=== PATIENT | female | born 1930 | race Caucasian/White ===

== ENCOUNTER → 2016-04-30 | Outpatient (CLI) | payer BC ==
[~2016-04-30] MED LIST: ACET-176 PO; AMLO5TAB4 PO; BISA1SUP4 PR; CEFT1INJ26 IV; CEFT1INJ57 IV; CLOP1TAB15 PO; CMD5 PO; DOCU100C31 PO; ECRCR EXT; EPP3/2 IM; ERGO50002 PO; FLUC100T4 PO; FRRS300 PO; FRS/40 PO; FURO-85 PO; GABA1CAP4 PO; IMDSR60 PO; ISOS30TA35 PO; ISOS60TA25 PO; LSX20 PO; MCRK20 PO; METO25TA3 PO; MGNO400 PO; MOML PO; MULT-506 PO; MULT-513 PO; NF656 TD; NITRSPR6; NTRSLP4 SL; NYSS/ MT; NYSS5 PO; OXCA150T2 PO; OXYC1TAB3 PO; PANT1TAB48 PO; PANT40TA PO; PHYT100T PO; POLY335019 PO; POTA20TA16 PO; POTTAB2 PO; RANO500T PO; RXC5 PO; SALI0.6510 NAE; SODI1000 PO; SODIENE PR; TPRSR50 PO; TRAM-10 PO; ULT/50 PO; ULT50X PO; WARF-286 PO; WARF6TAB5 PO
--- NOTE | 2016-04-30 16:37 | MAMMOGRAPHY REPORT ---
BILATERAL DIGITAL SCREENING MAMMOGRAM WITH CAD: 04/30/2016 CLINICAL HISTORY: Routine screening examination. TECHNIQUE: Bilateral CC and MLO views were obtained. Current study was also evaluated with a Comput er Aided Detection (CAD) system. COMPARISON: Comparison is made to exams dated: 04/27/2014 mammogram, 04/26/2013 mammogram, 03/21/2011 ma mmogram, 04/23/2012 mammogram, 11/21/2011 mammogram, and 03/28/2011 mammogram - [facility]. BREAST COMPOSITION: There are scattered areas of fibroglandular density in both breasts. FINDINGS: There are stable postsurgical changes in the lower inner quadrant of the left breast, with surgical clips remaining in place. There are diffuse bilateral benign rim calcifications and moder ate vascular calcification in the breasts. No suspicious mass, architectural distortion or cluster of new suspicious microcalcifications is seen. IMPRESSION: ACR BI-RADS CATEGORY 1: NEGATIVE There is no mammographic evidence of malignancy. A 1 year screening mammogram is recommended. The p atient will receive written notification of the results. Approximately 10% of breast cancers are not detected with mammography. A negative mammographic repor t should not delay biopsy if a clinically suggestive mass is present. Malena Willard M.D. ay/:04/30/2016 16:12:48 Superintendent Overhead Distribution: Sweetie WOODWARD)([place]), [facility] letter sent: Normal 1/2 BI-RADS Code: ACR BI-RADS Category 1: Negative
== END | disposition home or self-care (01) ==
LOC: C.MAMM 14:48
PROVIDERS: ATTEND Nurse Practitioner
DX: Z12.31 Encounter for screening mammogram for malignant neoplasm of breast (principal)

== ENCOUNTER → 2016-05-02 | Outpatient (CLI) | payer BC ==
[~2016-05-02] MED LIST changes: -CEFT1INJ57 IV; -DOCU100C31 PO
== END | disposition home or self-care (01) ==
LOC: C.LAB 12:21
PROVIDERS: ATTEND Psychiatry & Neurology Neurology
DX: G50.0 Trigeminal neuralgia (principal)

== ENCOUNTER → 2016-06-03 | Outpatient (CLI) | payer BC ==
[~2016-06-03] MED LIST changes: +CEFT1INJ57 IV
[2016-06-03 16:37] LABS: MEAN CELL VOLUME 90.1 fL (80-100); MEAN CORPUSCULAR HEMOGLOBIN 29.9 pg (25-34); MEAN CORPUSCULAR HGB CONC 33.2 g/dl (32-36); MEAN PLATELET VOLUME 10.9 fL (7.4-10.4); PLATELET COUNT 190 K/uL (130-400); RED BLOOD COUNT 4.55 M/uL (4.2-5.4); WHITE BLOOD COUNT 5.44 K/uL (4.8-10.8)
[2016-06-03 16:47] LABS: URINE APPEARANCE CLEAR (CLEAR); URINE BILIRUBIN NEG (NEG); URINE COLOR YELLOW; URINE NITRITE NEG (NEG); URINE SPECIFIC GRAVITY 1.007 (1.000-1.030); UROBILINOGEN NEG (NEG)
[2016-06-03 16:48] LABS: MANUAL MICROSCOPIC REQUIRED? NO; REVIEW REQ? NO
[2016-06-03 16:57] LABS: URINE PROTIEN/CREAT RATIO 0.1 (0-0.2); URINE TOTAL PROTEIN 6.5 mg/dl (0-11.9)
[2016-06-03 16:59] LABS: BLOOD UREA NITROGEN 30 mg/dl (7-18); BUN/CREATININE RATIO 23.2 (10-20); CALCIUM 9.1 mg/dl (8.5-10.1); CARBON DIOXIDE 28 mmol/L (21-32); CHLORIDE 106 mmol/L (98-107); GLUCOSE 93 mg/dl (70-99); SODIUM 141 mmol/L (136-145)
== END | disposition home or self-care (01) ==
LOC: C.LAB1850 15:10
PROVIDERS: ATTEND Internal Medicine Nephrology
DX: I12.9 Hypertensive chronic kidney disease with stage 1 through stage 4 chronic kidney disease, or unspecified chronic kidney disease (principal); E87.1 Hypo-osmolality and hyponatremia; N18.2 Chronic kidney disease, stage 2 (mild); E55.9 Vitamin D deficiency, unspecified

== ENCOUNTER → 2016-12-02 | Outpatient (CLI) | payer BC ==
[~2016-12-02] MED LIST changes: +DOCU100C31 PO; +SNTO30 EXT; +TPRSR25 PO; -WARF6TAB5 PO
[2016-12-02 14:41] LABS: MEAN CELL VOLUME 89.7 fL (80-100); MEAN CORPUSCULAR HEMOGLOBIN 28.2 pg (25-34); MEAN CORPUSCULAR HGB CONC 31.5 g/dl (32-36); MEAN PLATELET VOLUME 10.1 fL (7.4-10.4); PLATELET COUNT 186 K/uL (130-400); RED BLOOD COUNT 4.57 M/uL (4.2-5.4); WHITE BLOOD COUNT 4.89 K/uL (4.8-10.8)
[2016-12-02 15:00] LABS: ALT/SGPT 24 U/L (12-78); BLOOD UREA NITROGEN 26 mg/dl (7-18); BUN/CREATININE RATIO 23.5 (10-20); CALCIUM 9.4 mg/dl (8.5-10.1); CARBON DIOXIDE 29 mmol/L (21-32); CHLORIDE 107 mmol/L (98-107); GLUCOSE 93 mg/dl (70-99); POTASSIUM 4.5 mmol/L (3.5-5.1); SODIUM 140 mmol/L (136-145); URINE PROTIEN/CREAT RATIO 0.2 (0-0.2); URINE TOTAL PROTEIN 24.2 mg/dl (0-11.9)
[2016-12-02 15:03] LABS: ALB/GLOB RATIO 0.8 (0.9-2); ALKALINE PHOSPHATASE 108 U/L (45-117); AST/SGOT 26 U/L (15-37)
[2016-12-02 15:11] LABS: URINE APPEARANCE CLOUDY (CLEAR); URINE BILIRUBIN NEG (NEG); URINE COLOR DK YELLOW; URINE EPITHELIAL CELL AUTO 20-30 /lpf (0-5); URINE NITRITE NEG (NEG); URINE PH 5.5 (4.5-7.5); URINE SPECIFIC GRAVITY 1.026 (1.000-1.030); UROBILINOGEN NEG (NEG)
[2016-12-02 15:22] LABS: MANUAL MICROSCOPIC REQUIRED? NO; REVIEW REQ? NO
== END | disposition home or self-care (01) ==
LOC: C.LAB1850 12:26
PROVIDERS: ATTEND Internal Medicine Nephrology
DX: I12.9 Hypertensive chronic kidney disease with stage 1 through stage 4 chronic kidney disease, or unspecified chronic kidney disease (principal); E87.1 Hypo-osmolality and hyponatremia; N18.2 Chronic kidney disease, stage 2 (mild); E55.9 Vitamin D deficiency, unspecified

== ENCOUNTER 2016-12-22 12:54 | Inpatient (IN) | payer BC, OTHER ==
[~2016-12-22] VITALS: Ht 157.5 cm; Wt 92.7 kg
[2016-12-22] VITALS (12 sets, daily range): BP systolic 106–123; BP diastolic 50–72; PULSE 63–80; TEMP 36.6–37.1; O2SAT 93–99; Ht 157.5 cm; Wt 92.7 kg
[~2016-12-22 12:54] MED LIST changes: -ACET-176 PO; -BISA1SUP4 PR; -CEFT1INJ26 IV; -CEFT1INJ57 IV; -CMD5 PO; -DOCU100C31 PO; -ECRCR EXT; -FLUC100T4 PO; -FRRS300 PO; -FRS/40 PO; -FURO-85 PO; -IMDSR60 PO; -ISOS30TA35 PO; -MCRK20 PO; -MGNO400 PO; -MOML PO; -MULT-513 PO; -NF656 TD; -NTRSLP4 SL; -NYSS/ MT; -NYSS5 PO; -OXYC1TAB3 PO; -PANT40TA PO; -PHYT100T PO; -POLY335019 PO; -POTA20TA16 PO; -POTTAB2 PO; -RXC5 PO; -SALI0.6510 NAE; -SNTO30 EXT; -SODIENE PR; -TPRSR25 PO; -TPRSR50 PO; -ULT/50 PO; -ULT50X PO
[2016-12-22] MEDS ORDERED: SODIUM CHLORIDE 0.9% 500ML 500 ML IV STA (13:09)
[2016-12-22] MEDS ORDERED: VANCOMYCIN 1GM/270ML NSS IV STA (13:09)
[2016-12-22] MEDS ORDERED: CEFTRIAXONE SOD INJ 1 GM ADDVIAL IV STA (13:09)
[2016-12-22] MEDS ORDERED: ONDANSETRON INJ 2 MG/ML 2 ML VIAL IV STA (13:09)
[2016-12-22] MEDS ORDERED: HYDROmorphone INJ 0.5 MG/0.5 ML SYR IV STA (13:09)
[2016-12-22] MEDS ORDERED: OPTIRAY 320 IV PRN (13:15)
--- NOTE | 2016-12-22 13:15 | EMERGENCY ROOM VISIT NOTE ---
History Report prepared by Alka: Geovanny Rader Under the Supervision of: Dr. Vinay Franco M.D. First contact with patient: 13:03 Chief Complaint: SWELLING TO EXTREMITY Stated Complaint: BLOOD CLOT/SWELLING IN RIGHT LEG History of Present Illness The patient is an 86 year old female who presents to the Emergency Room with complaints of constant right leg pain and swelling starting yesterday. The patient additionally was having some shortness of breath and disorientation last night. The patient is currently on Coumadin for a past pulmonary embolism and an aneurysm. The patient states that she does not smoke, though she smoked a long time ago. Source of History: patient Onset: yesterday Position: leg (right) Quality: other (swelling) Timing: constant Associated Symptoms: + SOB Note: Associated symptoms: Disorientation. Review of Systems See HPI for pertinent positives & negatives. A total of 10 systems reviewed and were otherwise negative. Past Medical & Surgical Medical Problems: (1) Cellulitis of right lower extremity (2) Coronary artery disease (3) Deep vein thrombosis (4) History of DVT of lower extremity (5) Hypertension (6) PE (pulmonary embolism) (7) Ulcerative colitis Surgical Problems: (1) H/O cardiac catheterization (2) H/O ileostomy (3) H/O percutaneous transluminal coronary angioplasty (4) History of lumpectomy Family History FH: cancer FH: heart disease Hypertension Social History Smoking Status: Never Smoker Alcohol Use: none Drug Use: none Marital Status: Housing Status: lives with family Occupation Status: retired Current/Historical Medications Scheduled Amlodipine Besylate (Norvasc), 5 MG PO BID Clopidogrel (Plavix), 75 MG PO DAILY Epinephrine (Epipen), 0.3 MG IM UD Ergocalciferol (Drisdol), 50,000 UNIT PO MONTHLY Furosemide (Furosemide), 20 MG PO DAILY Gabapentin (Gabapentin), 600 MG PO TID Isosorbide Mononitrate Ext Rel (Imdur Ext Rel), 90 MG PO DAILY Metoprolol Succ (Toprol Xl) (Toprol-Xl), 25 MG PO DAILY Multivitamin (Multivitamin), 1 TAB PO DAILY Oxcarbazepine (Trileptal), 150 MG PO QID Pantoprazole (Protonix), 40 MG PO DAILY Ranolazine (Ranexa), 500 MG PO BID Warfarin Sodium (Warfarin Sodium), 6 MG PO DAILY Allergies Coded Allergies: Sodium Lauryl Sulfate (Verified Allergy, Intermediate, HIVES & WELTS, 11/10) BEE STING (Verified Allergy, Unknown, ANAPHYLAXIS, 11/11/15) Physical Exam Vital Signs Date Time Temp Pulse Resp B/P (MAP) Pulse Ox O2 Delivery O2 Flow Rate FiO2 12/22/16 16:49 66 16 131/95 12/22/16 16:26 66 18 149/86 99 Nebulizer 12/22/16 16:00 99 Nasal Cannula 3.0 12/22/16 15:51 12 93 Mask 3.0 12/22/16 15:50 68 16 126/69 93 Nebulizer 15.0 12/22/16 15:13 68 16 133/98 91 Nasal Cannula 2.0 12/22/16 14:26 67 14 160/86 97 Nasal Cannula 12/22/16 13:26 65 12/22/16 13:09 62 16 146/76 93 Room Air 12/22/16 13:00 36.5 93 20 98 Room Air Physical Exam GENERAL: Patient is a healthy-appearing well-nourished female HEAD: Normocephalic atraumatic EYES: Ocular movements intact pupils equal and react to light OROPHARYNX mucous membranes are moist no exudates present no erythema or edema present NECK: Supple no nuchal rigidity CHEST: Good equal expansion LUNGS: Clear and equal to auscultation CARDIAC: Normal S1 and S2 ABDOMEN: Ostomy in place. Soft nontender no guarding BACK: No CVA tenderness EXTREMITIES: Right leg is grossly swollen. Good distal pulses. No pain upon palpation normal muscle strength in all groups no clubbing or cyanosis. I did a Doppler of both distal tibial and posterior dorsalis pulses. NEURO: Patient is following commands and answering questions appropriately. Alert and oriented x3 Cranial Nerves 2-12 grossly intact Medical Decision & Procedures ER Provider Diagnostic Interpretation: Radiology results as stated below per my review and radiologist interpretation: RIGHT LOWER EXTREMITY VENOUS DOPPLER HISTORY: Pt c/o RLE swelling, pain Right COMPARISON STUDY: Venous Doppler 06/13/2013. FINDINGS: The right common femoral vein is patent. There is broken flow and incomplete compressibility throughout the superficial femoral vein consistent with nonocclusive thrombus. The popliteal vein and calf vessels appear patent. 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 This has improved compared to the 2014 examination. Electronically signed by: Justin Lepe M.D. 12/22/2016 3:46 PM Dictated Date/Time: 12/22/2016 3:44 PM CHEST ONE VIEW PORTABLE HISTORY: Short of breath. COMPARISON: Chest 11/11/2015. FINDINGS: No pneumothorax. The heart remains enlarged. Tortuous thoracic aorta. No focal lung consolidations to suggest pneumonia. No evidence for pulmonary edema. Right basilar linear densities favor scarring or atelectasis. Right shoulder prosthesis. Right-sided dual-chamber pacemaker. Stable mild elevation of the left hemidiaphragm. IMPRESSION: No significant change compared to the prior study. No acute process. Electronically signed by: Justin Lepe M.D. 12/22/2016 3:02 PM Dictated Date/Time: 12/22/2016 3:00 PM Laboratory Results Test 12/22/16 14:40 12/22/16 14:49 12/22/16 14:52 12/22/16 14:53 Neutrophils % (Manual) 81.8 % Lymphocytes % (Manual) 1.7 % Variant Lymphocytes % (manual) 3.5 % Monocytes % (Manual) 1.7 % Metamyelocytes % 11.3 % Neutrophils # (Manual) 14.45 K/uL (1.4-6.5) Total Absolute Neutrophils 14.45 K/uL (1.4-6.5) Lymphocytes # (Manual) 0.30 K/uL (1.2-3.4) Absolute Variant Lymphocytes 0.62 K/uL Total Absolute Lymphocytes 0.92 K/uL (1.2-3.4) Monocytes # (Manual) 0.30 K/uL (0.11-0.59) Metamyelocytes # 2.00 K/uL (0-0) Hyposegmented Neutrophils 1+ Dohle Bodies 1+ Erythrocyte Sedimentation Rate 56 mm/hr (0-21) Creatine Kinase MB 48.4 ng/ml (0.5-3.6) Lipase 55 U/L (73-393) Procalcitonin 17.87 ng/ml (0-0.5) Bedside Lactic Acid Venous 2.22 mmol/L (0.90-1.70) Creatine Kinase MB Ratio (0-3.0) Bedside Hemoglobin 14.3 g/dl (12.0-16.0) Bedside Hematocrit 42 % (37-47) Bedside Sodium 135 mEq/L (135-144) Bedside Potassium 4.9 mEq/L (3.3-5.0) Bedside Chloride 101 mEq/L (101-112) Bedside Total CO2 25 mEq/l (24-31) Bedside Blood Urea Nitrogen 47 mg/dl (7-18) Bedside Creatinine 2.2 mg/dl (0.6-1.3) Bedside Glucose (other) 132 mg/dl (70-99) Bedside Ionized Calcium (Sarina) 1.17 mmol/l (1.12-1.32) Test 12/22/16 16:52 C-Reactive Protein 16.90 mg/dl (0-0.29) Labs reviewed by ED physician. Medications Administered Medications (Trade) Dose Ordered Sig/Darrick Route Start Time Stop Time Status Last Admin Dose Admin Sodium Chloride 500 ml @ 999 mls/hr Q31M STAT IV 12/22/16 13:09 12/22/16 13:39 DC 12/22/16 14:46 999 MLS/HR Hydromorphone HCl (Dilaudid Inj) 0.5 mg NOW STAT IV 12/22/16 13:09 12/22/16 13:13 DC 12/22/16 13:33 0.5 MG Ondansetron HCl (Zofran Inj) 4 mg NOW STAT IV 12/22/16 13:09 12/22/16 13:13 DC 12/22/16 14:39 4 MG Ceftriaxone Sodium (Rocephin Inj) 1 gm NOW STAT IV 12/22/16 13:09 12/22/16 13:13 DC 12/22/16 14:39 1 GM Vancomycin HCl (Vancomycin 1gm/ 270ml Nss) 1 gm NOW STAT IV 12/22/16 13:09 12/22/16 13:13 DC 12/22/16 14:39 1 GM Albuterol/ Ipratropium (Duoneb) 12 ml ONE ONCE INH 12/22/16 13:45 12/22/16 13:46 DC 12/22/16 15:49 12 ML Hydromorphone HCl (Dilaudid Inj) 1 mg NOW STAT IM 12/22/16 13:53 12/22/16 13:54 DC 12/22/16 14:03 1 MG Sodium Chloride 1,000 ml @ 999 mls/hr Q1H1M STAT IV 12/22/16 15:31 12/22/16 16:31 DC 12/22/16 16:25 999 MLS/HR Naloxone HCl (Narcan Inj) 0.4 mg NOW STAT IV 12/22/16 16:15 12/22/16 16:16 DC 12/22/16 16:21 0.4 MG Acetaminophen (Tylenol Tab) 650 mg Q4H PRN PO 12/22/16 16:30 01/21/17 16:29 12/23/16 10:30 650 MG Procedure Central Venous Catheter Indication: access Catheter type: arrow triple lumen Location: right IJ Verbal consent was obtained after the risks and benefits were explained, including but not limited to pneumothorax, hemothorax, vessel injury, bleeding, scarring, infection, pain, and bone/joint/nerve damage. At this time, the risks of the procedure are less than the risks of NOT performing the procedure. A time out was taken and the correct patient and site identified. The patient was placed in the reverse Trendelenburg position and the skin was prepped in the standard fashion with chlorhexidine and full sterile drapes applied. The proper landmarks were identified with ultrasound, anesthetized with 1% lidocaine without epinephrine, and the needle was inserted through the skin in the standard fashion. The needle was carefully advanced into blood vessel lumen under ultrasound guidance. The guidewire was placed uneventfully. The vessel is dilated and the catheter was placed. It was sutured into position. There was good blood return from all ports. The patient tolerated the procedure well and there were no complications. Post procedure x-ray was normal. ECG Indication: other (Leg swelling) Rate (beats per minute): 76 Rhythm: other (paced) Findings: no acute ischemic change, paced rhythm, no ectopy ED Course 1304: Past medical records reviewed. The patient was evaluated in room B12. A complete history and physical examination was performed. 1309: Vancomycin 1gm/ 270ml NSS 1gm IV, Rocephin Inj 1gm IV, Zofran Inj 4mg IV, Dilaudid Inj 0.5mg IV, Sodium Chloride 500 ml @ 999 mls/hr 1345: DuoNeb 12ml INH 1347: I reevaluated the patient, and she was resting. 1353: Dilaudid Inj 1mg IM 1356: I placed a central line in the patient. 1526: I discussed the patient's case with Dr. Abdi, he has agreed to evaluate the patient for further management and care. 1722: I discussed the patient's case with Dr. Meng, Orthopedic Surgery, and he is going to come and evaluate the patient. Medical Decision Differential diagnosis: Etiologies such as DVT, musculoskeletal, infection, joint effusion, trauma, lymphedema, idiopathic, CHF, as well as others were entertained. This is an 86-year-old female who presents emergency department complaining of pain to her right lower 70. Due to the nature the patient's complaint the right lower leg had pulses dopplered. 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 She does have a large elevation in her white blood cell count as well as acute renal failure. Nursing was unable to obtain laboratory work on this patient so a central line was placed as above to obtain laboratory work as well as access. The patient was started on fluid and antibiotics. She does have an elevation in her lactate. I did discuss the case with the hospitalist service as well as the new car make ready worker. Medication Reconcilliation Current Medication List: was personally reviewed by me Blood Pressure Screening Patient's blood pressure: Elevated blood pressure Managed by the hospitalist Consults Time Called: 1520 Consulting Physician: Dr. Abdi Returned Call: 1526 I discussed the patient's case with Dr. Abdi, he has agreed to evaluate the patient for further management and care. Additional Consults: Time Called: 1715 Consulted Physician: Dr. Meng, Orthopedic Surgery Returned Call: 1722 Additional Comments: I discussed the patient's case with Dr. Meng, Orthopedic Surgery, and he is going to come and evaluate the patient. Impression Primary Impression: Cellulitis Additional Impressions: Acute renal failure NSTEMI (non-ST elevated myocardial infarction) Critical Care I have personally spent greater than 90 minutes of critical care time in the direct management of this patient. This includes bedside care, interpretation of diagnostic studies, and testing, discussion with consultants, patient, and family members, and other required patient management activities. This 90 minutes is in excess of all separately billable procedures. Scribe Attestation The scribe's documentation has been prepared under my direction and personally reviewed by me in its entirety. I confirm that the note above accurately reflects all work, treatment, procedures, and medical decision making performed by me. Departure Information Dispostion Being Evaluated By Hospitalist Referrals Julius Zamora M.D. (PCP) Patient Instructions My [facility] Problem Qualifiers Primary Impression: Cellulitis Site of cellulitis: extremity Site of cellulitis of extremity: lower extremity Laterality: right Qualified Codes: L03.115 - Cellulitis of right lower limb Additional Impressions: Acute renal failure Acute renal failure type: unspecified Qualified Codes: N17.9 - Acute kidney failure, unspecified
[2016-12-22] MEDS ORDERED: HYDROmorphone INJ 0.5 MG/0.5 ML SYR IM STA (13:31)
[2016-12-22] MEDS ORDERED: ALBUT/IPRATROP 3MG/0.5MG NEB 3 ML VIAL INH ONE (13:45)
[2016-12-22] MEDS ORDERED: HYDROmorphone INJ 1 MG/ML SYR IM STA (13:53)
[2016-12-22] MEDS ORDERED: NALOXONE HCL 0.4 MG/1 ML VIAL/CARP ONE (14:15)
[2016-12-22 14:52] LABS: HEMATOCRIT 40.5 % (37-47); MEAN CELL VOLUME 87.5 fL (80-100); MEAN CORPUSCULAR HEMOGLOBIN 29.6 pg (25-34); MEAN CORPUSCULAR HGB CONC 33.8 g/dl (32-36); MEAN PLATELET VOLUME 10.1 fL (7.4-10.4); PLATELET COUNT 149 K/uL (130-400); RED BLOOD COUNT 4.63 M/uL (4.2-5.4); WHITE BLOOD COUNT 17.66 K/uL (4.8-10.8)
[2016-12-22 15:01] LABS: INR 2.5 (0.9-1.1)
--- NOTE | 2016-12-22 15:03 | DIAGNOSTIC IMAGING REPORT ---
CHEST ONE VIEW PORTABLE HISTORY: Short of breath. COMPARISON: Chest 11/11/2015. FINDINGS: No pneumothorax. The heart remains enlarged. Tortuous thoracic aorta. No focal lung consolidations to suggest pneumonia. No evidence for pulmonary edema. Right basilar linear densities favor scarring or atelectasis. Right shoulder prosthesis. Right-sided dual-chamber pacemaker. Stable mild elevation of the left hemidiaphragm. IMPRESSION: No significant change compared to the prior study. No acute process. Electronically signed by: Justin Lepe M.D. 12/22/2016 3:02 PM Dictated Date/Time: 12/22/2016 3:00 PM
[2016-12-22 15:05] LABS: ISTAT CREATININE 2.2 mg/dl (0.6-1.3); ISTAT HEMOGLOBIN 14.3 g/dl (12.0-16.0); ISTAT IONIZED CALCIUM 1.17 mmol/l (1.12-1.32)
[2016-12-22 15:10] LABS: CREATININE 2.2 mg/dl (0.60-1.20)
[2016-12-22 15:11] LABS: BUN/CREATININE RATIO 22.9 (10-20); CALCIUM 9.6 mg/dl (8.5-10.1); POTASSIUM 4.8 mmol/L (3.5-5.1)
[2016-12-22 15:25] LABS: COMPLETE YES; DOHLE BODIES 1+; HYPOSEGMENTED POLYS 1+; LYMPHOCYTE % 1.7 %; METAMYELOCYTE % 11.3 %; NEUTROPHILS % 81.8 %; VARIANT LYM ABS # 0.62 K/uL; VARIANT LYMPHOCYTE % 3.5 %
[2016-12-22] MEDS ORDERED: SODIUM CHLORIDE 0.9% 1000ML 1,000 ML IV STA (15:31)
--- NOTE | 2016-12-22 15:48 | DIAGNOSTIC IMAGING REPORT ---
RIGHT LOWER EXTREMITY VENOUS DOPPLER HISTORY: Pt c/o RLE swelling, pain Right COMPARISON STUDY: Venous Doppler 06/13/2013. FINDINGS: The right common femoral vein is patent. There is broken flow and incomplete compressibility throughout the superficial femoral vein consistent with nonocclusive thrombus. The popliteal vein and calf vessels appear patent. 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 This has improved compared to the 2013 examination. Electronically signed by: Justin Lepe M.D. 12/22/2016 3:46 PM Dictated Date/Time: 12/22/2016 3:44 PM
[2016-12-22 16:04] LABS: CKMB/CK RATIO 1.5 (0-3.0)
[2016-12-22] MEDS ORDERED: NALOXONE HCL 0.4 MG/1 ML VIAL/CARP IV STA ×2 (16:15→16:56)
[2016-12-22] MEDS ORDERED: SODIUM CHLORIDE 0.9% 1000ML 1,000 ML IV SCH (16:27)
[2016-12-22] MEDS ORDERED: MAGNESIUM HYDROXIDE SUSP 30 ML UDC PO PRN (16:30)
[2016-12-22] MEDS ORDERED: ONDANSETRON INJ 2 MG/ML 2 ML VIAL IV PRN (16:30)
[2016-12-22] MEDS ORDERED: POLYETHYLENE (MIRALAX) 17 GM PACK PO PRN (16:30)
[2016-12-22] MEDS ORDERED: ALUMINUM/MAGNESIUM/SIMETH (MAALOX MAX) 30 ML UDC PO PRN (16:30)
[2016-12-22] MEDS ORDERED: EPINEPHRINE ADULT AUTO-INJECT 0.3 MG SYR IM SCH (16:45)
[2016-12-22] MEDS: OXCARBAZEPINE 150 MG TAB PO SCH (17:00)
--- NOTE | 2016-12-22 17:15 | History and Physical ---
History & Physical Date & Time of Service: Dec 22, 2016 at 15:47 Chief Complaint: Blood Clot/Swelling In Right Leg Primary Care Physician: Julius Zamora M.D. History of Present Illness Source: patient Patient is an 86 yo female with history of PE, CAD, DVT, chronic superficial femoral thrombus & chronic anticoagulation on Coumadin who presented to the ED with complaints of right lower extremity pain and swelling along with SOB and confusion/disorientation. Patient is very lethargic on exam. She answers questions when woken up and addressed, but quickly falls back to sleep. She has OxyMask in place on exam running at 2 L/min. Since presentation, the patient received 1.5 mg Dilaudid, Duoneb, Zofran, 1 g Ceftriaxone and Vancomycin. The patient states that her leg pain started yesterday. She does clearly have history of bilateral knee replacements from exam along with pacemaker placement. She states that she is having SOB but it is improved with O2 supplementation. She complains of no abdominal pain or diarrhea. She does have colostomy bag and does not wake enough to answer any questions about it. She is disoriented. The reliability of ROS is questionable due to current state. Discussed patient case with Dr. Franco and Dr. Abdi. Blood cultures ordered and pending. 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 Improved since exam in 2013 CXR: Viewed and reviewed by me Showed no change compared to prior study & no acute process. Cardiomegaly noted along with a tortuous thoracic aorta. Right sided atelectasis noted along with right shoulder prosthesis and right-sided pacemaker in place. Labs reviewed upon presentation: WBC 17.66- Neutrophil predominance Hgb/Hct 13.7/40.5. Creatinine 2.20 BUN 50 Na+ 135 K+ 4.8 Cl- 101 Bicarb 25 AST 93, ALT 31, Alk Phos 98 CK, CK-MB pending INR 2.5 Troponin 1.970 VS on admission: Temp 36.5 C HR 93 RR 20 SaO2 98% on presentation down to 91% on 2L nasal cannula Past Medical/Surgical History Medical Problems: (1) Coronary artery disease Status: Chronic (2) Deep vein thrombosis Status: Resolved (3) History of DVT of lower extremity Status: Chronic (4) Hypertension Status: Chronic (5) PE (pulmonary embolism) Status: Resolved (6) Ulcerative colitis Status: Resolved Surgical Problems: (1) H/O cardiac catheterization Status: Resolved (2) H/O ileostomy Status: Chronic (3) H/O percutaneous transluminal coronary angioplasty Status: Resolved (4) History of lumpectomy Status: Resolved (5) Bilateral knee arthroplasty (6) Pacemaker placement Family History FH: cancer FH: heart disease Hypertension Social History Smoking Status: Never Smoker Smokeless Tobacco Use: No Alcohol Use: none Drug Use: none Marital Status: Housing status: lives with family Occupational Status: retired Immunizations History of Influenza Vaccine: Yes Influenza Vaccine Date: Jan 01, 2013 History of Tetanus Vaccine?: UTD History of Pneumococcal: Yes Pneumococcal Date: May 03, 2011 History of Hepatitis B Vaccine: No Multi-Drug Resistant Organisms History of MDRO: No Allergies Coded Allergies: Sodium Lauryl Sulfate (Verified Allergy, Intermediate, HIVES & WELTS, 11/10) BEE STING (Verified Allergy, Unknown, ANAPHYLAXIS, 11/11/15) Home Medications Scheduled Amlodipine Besylate (Norvasc), 5 MG PO BID Clopidogrel (Plavix), 75 MG PO DAILY Epinephrine (Epipen), 0.3 MG IM UD Ergocalciferol (Drisdol), 50,000 UNIT PO MONTHLY Furosemide (Furosemide), 20 MG PO DAILY Gabapentin (Gabapentin), 600 MG PO TID Isosorbide Mononitrate Ext Rel (Imdur Ext Rel), 90 MG PO DAILY Metoprolol Succ (Toprol Xl) (Toprol-Xl), 25 MG PO DAILY Multivitamin (Multivitamin), 1 TAB PO DAILY Oxcarbazepine (Trileptal), 150 MG PO QID Pantoprazole (Protonix), 40 MG PO DAILY Ranolazine (Ranexa), 500 MG PO BID Warfarin Sodium (Warfarin Sodium), 6 MG PO DAILY Review of Systems As noted in HPI- questionable reliability, and otherwise negative Physical Exam Vital Signs Date Time Temp Pulse Resp B/P (MAP) Pulse Ox O2 Delivery O2 Flow Rate FiO2 12/22/16 15:13 68 16 133/98 91 Nasal Cannula 2.0 12/22/16 14:26 67 14 160/86 97 Nasal Cannula 12/22/16 13:26 65 12/22/16 13:09 62 16 146/76 93 Room Air 12/22/16 13:00 36.5 93 20 98 Room Air General Appearance: WD/WN, + moderate distress (respiratory, lethargic) Head: normocephalic, atraumatic Eyes: sclerae normal ENT: hearing grossly normal Neck: + pertinent finding (right-sided IJ in place. Blood surrounding line/ under dressing) Respiratory/Chest: + respiratory distress (mild), + pertinent finding (OxyMask running. C) Cardiovascular: + systolic murmur (pansystolic), + pertinent finding (Paced rhythm on monitor.) Abdomen/GI: normal bowel sounds, + pertinent finding (Colostomy -RLQ) Extremities/Musculoskelatal: + pertinent finding (RLE with moderate edema. Pain to palpation especially of right knee/right ankle) Neurologic/Psych: + disoriented, + pertinent finding (lethargic) Skin: + pertinent finding (Mottled erythema of the right lower extremity with small ulceration at the distal portion of healed right knee scar.) Diagnostics Laboratory Results Results Past 24 Hours Test 12/22/16 14:40 12/22/16 14:49 12/22/16 14:52 12/22/16 14:53 Range/Units White Blood Count 17.66 4.8-10.8 K/uL Red Blood Count 4.63 4.2-5.4 M/uL Hemoglobin 13.7 12.0-16.0 g/dL Hematocrit 40.5 37-47 % Mean Corpuscular Volume 87.5 80-100 fL Mean Corpuscular Hemoglobin 29.6 25-34 pg Mean Corpuscular Hemoglobin Concent 33.8 32-36 g/dl Platelet Count 149 130-400 K/uL Mean Platelet Volume 10.1 7.4-10.4 fL RDW Standard Deviation 48.3 36.4-46.3 fL RDW Coefficient of Variation 15.0 11.5-14.5 % Neutrophils % (Manual) 81.8 % Lymphocytes % (Manual) 1.7 % Variant Lymphocytes % (manual) 3.5 % Monocytes % (Manual) 1.7 % Metamyelocytes % 11.3 % Neutrophils # (Manual) 14.45 1.4-6.5 K/uL Total Absolute Neutrophils 14.45 1.4-6.5 K/uL Lymphocytes # (Manual) 0.30 1.2-3.4 K/uL Absolute Variant Lymphocytes 0.62 K/uL Total Absolute Lymphocytes 0.92 1.2-3.4 K/uL Monocytes # (Manual) 0.30 0.11-0.59 K/uL Metamyelocytes # 2.00 0-0 K/uL Hyposegmented Neutrophils 1+ Dohle Bodies 1+ Prothrombin Time 28.0 9.0-12.0 SECONDS Prothromb Time International Ratio 2.5 0.9-1.1 Sodium Level 135 136-145 mmol/L Potassium Level 4.8 3.5-5.1 mmol/L Chloride Level 101 98-107 mmol/L Carbon Dioxide Level 25 21-32 mmol/L Anion Gap 9.0 14.0 16-25 mmol/L Blood Urea Nitrogen 50 7-18 mg/dl Creatinine 2.20 0.60-1.20 mg/dl Est Creatinine Clear Calc Drug Dose 19.9 ml/min Estimated GFR () 23.1 Estimated GFR (Non- 19.9 BUN/Creatinine Ratio 22.9 10-20 Random Glucose 129 70-99 mg/dl Calcium Level 9.6 8.5-10.1 mg/dl Total Bilirubin 0.5 0.2-1 mg/dl Direct Bilirubin 0.1 0-0.2 mg/dl Aspartate Amino Transf (AST/SGOT) 93 15-37 U/L Alanine Aminotransferase (ALT/SGPT) 31 12-78 U/L Alkaline Phosphatase 98 45-117 U/L Creatine Kinase MB Ratio 0-3.0 Total Protein 7.3 6.4-8.2 gm/dl Albumin 3.2 3.4-5.0 gm/dl Lipase 55 73-393 U/L Bedside Lactic Acid Venous 2.22 0.90-1.70 mmol/L Bedside Hemoglobin 14.3 12.0-16.0 g/dl Bedside Hematocrit 42 37-47 % Bedside Sodium 135 135-144 mEq/L Bedside Potassium 4.9 3.3-5.0 mEq/L Bedside Chloride 101 101-112 mEq/L Bedside Total CO2 25 24-31 mEq/l Bedside Blood Urea Nitrogen 47 7-18 mg/dl Bedside Creatinine 2.2 0.6-1.3 mg/dl Bedside Glucose (other) 132 70-99 mg/dl Bedside Ionized Calcium (Sarina) 1.17 1.12-1.32 mmol/l Microbiology Results 12/22/16 Blood Culture, Received Pending 12/22/16 Blood Culture, Received Pending Diagnostic Radiology RIGHT LOWER EXTREMITY VENOUS DOPPLER HISTORY: Pt c/o RLE swelling, pain Right COMPARISON STUDY: Venous Doppler 06/13/2013. FINDINGS: The right common femoral vein is patent. There is broken flow and incomplete compressibility throughout the superficial femoral vein consistent with nonocclusive thrombus. The popliteal vein and calf vessels appear patent. 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 This has improved compared to the 2014 examination. CHEST ONE VIEW PORTABLE HISTORY: Short of breath. COMPARISON: Chest 11/11/2015. FINDINGS: No pneumothorax. The heart remains enlarged. Tortuous thoracic aorta. No focal lung consolidations to suggest pneumonia. No evidence for pulmonary edema. Right basilar linear densities favor scarring or atelectasis. Right shoulder prosthesis. Right-sided dual-chamber pacemaker. Stable mild elevation of the left hemidiaphragm. IMPRESSION: No significant change compared to the prior study. No acute process. EKG Reviewed by me. Paced rhythm noted. Impression Assessment and Plan Right Lower Extremity Cellulitis versus DVT with chronic superficial femoral thrombus Possible septic right knee with h/o replacement -Edema/erythema of the RLE. Received IV Ctx and Vanocmycin in ED. Will broaden to IV Zosyn and Vancomycin for concern of septic right knee -Blood cultures pending. UA pending. Will check urine culture. -POC Lactic acid elevated. Will recheck in AM -Check ESR/CRP/Procalcitonin Disorientation -Did not respond much to IM Narcan given in ED -Check CT Head without contrast Pansystolic murmur -Echocardiogram ordered- concern for right heart strain versus endocarditis MARTÍN -Creatinine increased to 2.2 -Recheck BMP in AM -Continue IV NSS CAD with pacemaker and elevated Troponin -Troponin elevated on admission -Recheck Troponin at 17:00, and then Q 8 h x 3 -EKG PRN chest pain -Admit to ICU -D/C Warfarin, start Heparin drip for concern of clotting -Continue Plavix, add ASA 81 mg daily Hypertension -Continue at home Amlodipine 5 mg BID Hypoxia -Currently on 2 L via nasal cannula- continue to monitor SaO2 and keep above 88% -DuoNeb scheduled Q4h while awake and Q2h PRN SOB Hx chronic right lower extremity superficial femoral thrombus -Continue DVT prophylaxis as above Attending Addendum: I have physically seen and examined this patient, have directed the physician assistants medical activities, and agree with the H&P as noted above with the following exceptions as noted. The patient is awake, intermittently alert and oriented 3, well-developed and well-nourished, normocephalic and atraumatic, lying in bed and in no acute distress. HEENT--PERRL, EOMI, mucous membranes and oropharynx dry. Neck--supple, no JVD or bruits, thyroid normal, trachea midline, no adenopathy. Heart--normal S1 and S2, no extra beats, no murmurs, rubs or gallops. Lungs--coarse breath sounds bilaterally, with decreased breath sounds at the bases, mild respiratory distress and accessory muscle use. Abdomen--normal bowel sounds and soft, nontender and nondistended, no hernias or masses, no organomegaly. Extremities--no cyanosis, clubbing or edema. There are good distal pulses b/l. Dermatologic--left lower extremity with trace to 1+ pretibial pitting edema. Right lower extremity with 1+ pretibial pitting edema, erythema along the entire pretibial surface, erythema swelling and induration encompassing right total knee arthroplasty. Neurologic--cranial nerves II through XII grossly intact. Rheumatologic--right total knee arthroplasty joints swollen with overlying induration and erythema and warmth. Psychiatric--normal affect. 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 Vancomycin IV, Zosyn IV. Credit Verification Clerk Dr. Montenegro consulted. Orthopedist Dr. Meng has been consulted for possible need drainage. Follow blood cultures and sensitivity. Repeat lactic acid. Order CT of the chest without contrast initially. Would consider ordering a VQ scan to assess her pulmonary embolism tomorrow. Unable to order CTA of chest due to elevated creatinine of 2.2. Level of Care Critical Care Resuscitation Status FULL RESUSCITATION VTE Prophylaxis VTE Risk Assessment Done? Y/N: Yes Risk Level: High Given or contraindicated: Warfarin (Coumadin) Note Total Time: Critical Care 30 - 74 minutes
[2016-12-22] MEDS ORDERED: LIDOCAINE/EPINEPHRINE 1% 20 ML VIAL INFIL STA (17:29)
[2016-12-22 17:35] LABS: C-REACTIVE PROTEIN 16.9 mg/dl (0-0.29)
[2016-12-22 17:44] LABS: VEN BLD GAS O2 SATURATION 71.3 %; VEN BLOOD GAS BASE EXCESS -2.8 mEq/L
[2016-12-22] MEDS ORDERED: PIPERACILL/TAZOBAC IV 3.375 GM in DEXTROSE 5% 100ML 100 ML IV SCH (18:00)
[2016-12-22] MEDS ORDERED: VANCOMYCIN INJ 1,000 MG in SODIUM CHLORIDE 0.9% 250ML 250 ML IV STA ×2 (18:20→19:48)
[2016-12-22] MEDS ORDERED: CLINDAMYCIN IV 900 MG in DEXTROSE 5% 100ML 100 ML IV ONE (18:30)
[2016-12-22] MEDS ORDERED: METOPROLOL TARTRATE 1 MG/ML VIAL IV PRN (19:00)
--- NOTE | 2016-12-22 19:06 | DIAGNOSTIC IMAGING REPORT ---
RIGHT KNEE 1 OR 2 VIEWS ROUTINE, RIGHT TIBIA/FIBULA 2 VIEWS ROUTINE CLINICAL HISTORY: leg swelling Right COMPARISON STUDY: None. FINDINGS: Chondrocalcinosis within the knee. 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 The bones are osteopenic. No fracture or dislocation within the right knee or right lower leg. No significant knee effusion. Diffuse soft tissue edema/swelling within the right knee and right lower leg. IMPRESSION: No fractures within the right knee or right lower leg. Diffuse soft tissue swelling/edema. Electronically signed by: Justin Lepe M.D. 12/22/2016 7:05 PM Dictated Date/Time: 12/22/2016 7:03 PM
--- NOTE | 2016-12-22 19:48 | Critical Care Consultation ---
Critical Care Consultation Date of Consultation: Dec 22, 2016. Attending Physician: Saira Reason for Consultation: Severe sepsis, septic shock History of Present Illness Patient is an 86-year-old female who presented with increased right lower extremity swelling, generalized weakness, shortness of breath. In the emergency department there was concern for sepsis secondary to cellulitis of the right lower extremity and concern for possible infected artificial hardware. Patient required emergent central venous catheter while in the emergency department and placement on vasoactive medications. She was started on 1 g Rocephin, 1 g vancomycin and I was consult. For the concern of possible septic joint, Dr. Meng of orthopedics was consult in the emergency department, who attempted to aspirate the knee, there was no joint fluid noted and obtained a prepatellar bursa culture as well as superficial wound culture. She was administered approximately 1800 mL of normal saline. Patient stated that she does not want a breathing tube placed, she understood that if this was required and she did not want a breathing tube she would ultimately parachute, she understood this. With additional questioning regarding CODE STATUS she deferred decisions to the patient's daughter, Elizabeth Singh. I was able to reach Elizabeth at her cell phone [phone]. Elizabeth stated that her mother was very independent person and they had recently discussed advanced directives prior to her pacer placement the spring. Elizabeth was where she would not want a breathing tube, she was also not want heroic measures. In discussion with her the patient would be a DO NOT RESUSCITATE in event of cardiac arrest. Past Medical/Surgical History #1 hypertension #2 long-term anticoagulation use secondary to DVT as well as pulmonary embolism. 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 #9 pacemaker Family History FH: cancer FH: heart disease Hypertension Social History Smoking Status: Never Smoker Drug Use: none Marital Status: Housing Status: lives with family Occupation Status: retired Allergies Coded Allergies: Sodium Lauryl Sulfate (Verified Allergy, Intermediate, HIVES & WELTS, 11/10) BEE STING (Verified Allergy, Unknown, ANAPHYLAXIS, 11/11/15) Home Medications Scheduled Amlodipine Besylate (Norvasc), 5 MG PO BID Clopidogrel (Plavix), 75 MG PO DAILY Epinephrine (Epipen), 0.3 MG IM UD Ergocalciferol (Drisdol), 50,000 UNIT PO MONTHLY Furosemide (Furosemide), 20 MG PO DAILY Gabapentin (Gabapentin), 600 MG PO TID Isosorbide Mononitrate Ext Rel (Imdur Ext Rel), 90 MG PO DAILY Metoprolol Succ (Toprol Xl) (Toprol-Xl), 25 MG PO DAILY Multivitamin (Multivitamin), 1 TAB PO DAILY Oxcarbazepine (Trileptal), 150 MG PO QID Pantoprazole (Protonix), 40 MG PO DAILY Ranolazine (Ranexa), 500 MG PO BID Warfarin Sodium (Warfarin Sodium), 6 MG PO DAILY Current Inpatient Medications Current Inpatient Medications Medications (Trade) Dose Ordered Sig/Darrick Route Start Time Stop Time Status Last Admin Dose Admin Heparin Sodium/ Dextrose 1 ea NOW STAT N/A 12/22/16 16:32 12/22/16 16:33 UNV Amlodipine Besylate (Norvasc Tab) 5 mg BID PO 12/22/16 21:00 01/21/17 20:59 UNV Clopidogrel Bisulfate (plAVix TAB) 75 mg DAILY PO 12/23/16 09:00 01/22/17 08:59 UNV Epinephrine (Epipen) 0.3 mg UD IM 12/22/16 16:45 01/21/17 16:44 UNV Furosemide (Lasix Tab) 20 mg DAILY PO 12/23/16 09:00 01/22/17 08:59 UNV Gabapentin (Neurontin Cap) 600 mg TID PO 12/22/16 21:00 01/21/17 20:59 UNV Isosorbide Mononitrate (Imdur Ext Rel Tab) 90 mg DAILY PO 12/23/16 09:00 01/22/17 08:59 UNV Metoprolol Succinate (Toprol Xl Tab) 25 mg DAILY PO 12/23/16 09:00 01/22/17 08:59 UNV Multivitamins (Multivitamin Tab) 1 tab DAILY PO 12/23/16 09:00 01/22/17 08:59 UNV Oxcarbazepine (Trileptal Tab) 150 mg QID PO 12/22/16 17:00 01/21/17 16:59 UNV Pantoprazole Sodium (Protonix Tab) 40 mg DAILY PO 12/23/16 09:00 01/22/17 08:59 UNV Non-Formulary Medication (Ranolazine (Ranexa)) 500 mg BID PO 12/22/16 21:00 01/21/17 20:59 UNV Sodium Chloride 1,000 ml @ 100 mls/hr Q10H IV 12/22/16 16:27 01/21/17 16:26 UNV Acetaminophen (Tylenol Tab) 650 mg Q4H PRN PO 12/22/16 16:30 01/21/17 16:29 UNV Al Hydrox/Mg Hydrox/Simethicone (Maalox Max Susp) 15 ml Q4H PRN PO 12/22/16 16:30 01/21/17 16:29 Magnesium Hydroxide (Milk Of Magnesia Susp) 30 ml Q12H PRN PO 12/22/16 16:30 01/21/17 16:29 UNV Ondansetron HCl (Zofran Inj) 4 mg Q6H PRN IV 12/22/16 16:30 01/21/17 16:29 Nitroglycerin (Nitrostat Tab) 0.4 mg UD PRN SL 12/22/16 16:30 01/21/17 16:29 Polyethylene (Miralax Powder Packet) 17 gm DAILY PRN PO 12/22/16 16:30 01/21/17 16:29 UNV Vancomycin HCl 1000 mg/Sodium Chloride 270 ml @ 125 mls/hr Q12 IV 12/22/16 21:00 01/01/17 20:59 UNV Piperacillin Sod/ Tazobactam Sod 3.375 gm/Dextrose 115 ml @ 200 mls/hr Q6 IV 12/22/16 18:00 01/01/17 17:59 UNV Aspirin (Ecotrin Tab) 81 mg QAM PO 12/23/16 09:00 01/22/17 08:59 UNV Naloxone HCl (Narcan Inj) 0.4 mg NOW STAT IV 12/22/16 16:56 12/22/16 16:57 UNV Albuterol/ Ipratropium (Duoneb) 3 ml Q4R INH 12/22/16 20:00 01/21/17 19:59 UNV Albuterol/ Ipratropium (Duoneb) 3 ml Q2HWA PRN INH 12/22/16 17:00 01/21/17 16:59 UNV Clindamycin Phosphate 900 mg/ Dextrose 106 ml @ 100 mls/hr ONE ONCE IV 12/22/16 18:30 12/22/16 19:33 12/22/16 18:25 100 MLS/HR Vancomycin HCl 1000 mg/Sodium Chloride 270 ml @ 125 mls/hr NOW STAT IV 12/22/16 18:20 12/22/16 20:29 Review of Systems Constitutional: + fever, + weakness Respiratory: No cough, No sputum Cardiovascular: No chest pain, No orthopnea Abdomen: No pain, No nausea Physical Exam Date Time Temp Pulse Resp B/P (MAP) Pulse Ox O2 Delivery O2 Flow Rate FiO2 12/22/16 17:59 69 16 122/67 96 Mask 12/22/16 16:49 66 16 131/95 12/22/16 16:26 66 18 149/86 99 Nebulizer 12/22/16 16:00 99 Nasal Cannula 3.0 12/22/16 15:51 12 93 Mask 3.0 12/22/16 15:50 68 16 126/69 93 Nebulizer 15.0 12/22/16 15:13 68 16 133/98 91 Nasal Cannula 2.0 12/22/16 14:26 67 14 160/86 97 Nasal Cannula 12/22/16 13:26 65 12/22/16 13:09 62 16 146/76 93 Room Air 12/22/16 13:00 36.5 93 20 98 Room Air General Appearance: moderate distress, other Head: normocephalic, atraumatic Eyes: EOMI ENT: other (dry mucous membranes) Neck: normal range of motion, trachea midline Respiratory: rhonchi (bilateral) Cardiovasular: regular rate/rhythm, systolic murmur Abdomen: non tender, hypoactive bowel sounds Lower Extremities: abnormal exam (cellulitis of the right lower extremity) Edema: Bilateral LE (2+ on the right 1+ on the left) Neuro: other (patient's seemed to wax and wane, she would drift off frequently during my examination) Laboratory Results Last 24 Hours Test 12/22/16 14:40 12/22/16 14:49 12/22/16 14:52 12/22/16 14:53 White Blood Count 17.66 K/uL Red Blood Count 4.63 M/uL Hemoglobin 13.7 g/dL Hematocrit 40.5 % Mean Corpuscular Volume 87.5 fL Mean Corpuscular Hemoglobin 29.6 pg Mean Corpuscular Hemoglobin Concent 33.8 g/dl Platelet Count 149 K/uL Mean Platelet Volume 10.1 fL RDW Standard Deviation 48.3 fL RDW Coefficient of Variation 15.0 % Neutrophils % (Manual) 81.8 % Lymphocytes % (Manual) 1.7 % Variant Lymphocytes % (manual) 3.5 % Monocytes % (Manual) 1.7 % Metamyelocytes % 11.3 % Neutrophils # (Manual) 14.45 K/uL Total Absolute Neutrophils 14.45 K/uL Lymphocytes # (Manual) 0.30 K/uL Absolute Variant Lymphocytes 0.62 K/uL Total Absolute Lymphocytes 0.92 K/uL Monocytes # (Manual) 0.30 K/uL Metamyelocytes # 2.00 K/uL Hyposegmented Neutrophils 1+ Dohle Bodies 1+ Erythrocyte Sedimentation Rate 56 mm/hr Prothrombin Time 28.0 SECONDS Prothromb Time International Ratio 2.5 Sodium Level 135 mmol/L Potassium Level 4.8 mmol/L Chloride Level 101 mmol/L Carbon Dioxide Level 25 mmol/L Anion Gap 9.0 mmol/L 14.0 mmol/L Blood Urea Nitrogen 50 mg/dl Creatinine 2.20 mg/dl Est Creatinine Clear Calc Drug Dose 19.9 ml/min Estimated GFR () 23.1 Estimated GFR (Non- 19.9 BUN/Creatinine Ratio 22.9 Random Glucose 129 mg/dl Calcium Level 9.6 mg/dl Total Bilirubin 0.5 mg/dl Direct Bilirubin 0.1 mg/dl Aspartate Amino Transf (AST/SGOT) 93 U/L Alanine Aminotransferase (ALT/SGPT) 31 U/L Alkaline Phosphatase 98 U/L Total Creatine Kinase 3167 U/L Creatine Kinase MB 48.4 ng/ml Creatine Kinase MB Ratio 1.5 Troponin I 1.970 ng/ml Total Protein 7.3 gm/dl Albumin 3.2 gm/dl Lipase 55 U/L Procalcitonin 17.87 ng/ml Bedside Lactic Acid Venous 2.22 mmol/L Bedside Hemoglobin 14.3 g/dl Bedside Hematocrit 42 % Bedside Sodium 135 mEq/L Bedside Potassium 4.9 mEq/L Bedside Chloride 101 mEq/L Bedside Total CO2 25 mEq/l Bedside Blood Urea Nitrogen 47 mg/dl Bedside Creatinine 2.2 mg/dl Bedside Glucose (other) 132 mg/dl Bedside Ionized Calcium (Sarina) 1.17 mmol/l Test 12/22/16 16:52 12/22/16 17:34 Troponin I 1.900 ng/ml C-Reactive Protein 16.90 mg/dl Venous Blood pH 7.36 Venous Blood Partial Pressure CO2 41 mmHg Venous Blood Partial Pressure O2 40 mmHg Venous Blood HCO3 22 mmol/L Venous Blood Oxygen Saturation 71.3 % Venous Blood Base Excess -2.8 mEq/L Lactic Acid Level 1.6 mmol/L Diagnostic Results F reviewed by her records: There is an echocardiogram from 2014 which revealed a EF of 65%, mild aortic stenosis, mild mitral regurgitation. She has an infrarenal abdominal aortic aneurysm measuring 5.55.7 cm. 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 PLAN: Neuro: Encephalopathy * Likely multifactorial secondary to sepsis and possible narcotic medication administration Resp: Hypoxia * Corrected with supplemental oxygen * I doubt this is an aspect of PE, the patient has a IVC filter, is therapeutic on her Coumadin, I believe the elevated troponins are secondary to the acute kidney injury she is artery on maximal therapy for pulmonary embolism CV: Cardiac disease * Follow-up echocardiography * Holding antihypertensives * Continue aspirin Plavix Status post pacemaker Infrarenal abdominal aortic aneurysm * Routine vascular surgery consult as outpatient unless otherwise indicated during this admission Fluids/Renal: Acute kidney injury * Normosol at 125 per hour strict I's and O's ID: Severe sepsis secondary to complicated skin and soft tissue infection * Right artificial knee aspirated by orthopedics * no evidence of infection dry tap * MRI unable to be obtained due to pacemaker, we will proceed with non-con CT given elevated creatinine * Vancomycin 2 g IV * Zosyn 4.5 mg every 8 hours * Clindamycin 900 mg every 8 hours * Pharmacy consult for pharmacokinetic parameters GI/Nutrition: History of ulcerative colitis status post ileostomy * Nothing by mouth status Heme: 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 This is a life/limb threatening event. This includes time spent evaluating patient, direct bedside care, chart review, placing orders, interpretation of diagnostic studies, discussion with consultants, patient, and family members, as well as other required patient management activities. This time is exclusive of all separately billable procedures, and teaching time and separate from and in addition to any other critical care service time.
[2016-12-22] MEDS ORDERED: PIPERACILL/TAZOBAC IV 4.5 GM in DEXTROSE 5% 100ML 100 ML IV ONE (19:50)
[2016-12-22] MEDS ORDERED: VANCOMYCIN CONSULT ACTIVE PRN (19:51)
[2016-12-22] MEDS ORDERED: ALBUT/IPRATROP 3MG/0.5MG NEB 3 ML VIAL INH SCH (20:00)
[2016-12-22] MEDS ORDERED: PIPERACILL/TAZOBAC CONSULT ACTIVE PRN (20:00)
[2016-12-22] MEDS: ALBUT/IPRATROP 3MG/0.5MG NEB 3 ML VIAL INH PRN (20:50)
[2016-12-22] MEDS ORDERED: VANCOMYCIN INJ 1,000 MG in SODIUM CHLORIDE 0.9% 250ML 250 ML IV SCH (21:00)
[2016-12-22] MEDS ORDERED: AMLODIPINE BESYLATE 5 MG TAB PO SCH (21:00)
--- NOTE | 2016-12-22 21:34 | Pharmacy Progress Note ---
Pharmacy Abx Initial Consult Date of Service Dec 22, 2016. Pharmacy Dosing Scope Date of Consult: 12/22/16 Consultation requested by: Dr. Montenegro Pharmacy is consulted to initiate Vancomycin and Zosyn IV dosing therapy, order appropriate labs and adjust drug dose/frequency. Subjective The patient is a 86 year old female admitted on Dec 22, 2016 at 16:56. Objective Height (Feet): 5 Height (Inches): 2.00 Weight (Kilograms): 90.000 Vital Signs (Past 12Hrs) Vital Signs Past 12 Hours Date Time Temp Pulse Resp B/P (MAP) Pulse Ox O2 Delivery O2 Flow Rate FiO2 12/22/16 20:50 66 18 99 Mask 4.0 12/22/16 19:09 36.6 67 16 123/61 (81) 94 Oxymask 4.0 12/22/16 17:59 69 16 122/67 96 Mask 12/22/16 16:49 66 16 131/95 12/22/16 16:26 66 18 149/86 99 Nebulizer 12/22/16 16:00 99 Nasal Cannula 3.0 12/22/16 15:51 12 93 Mask 3.0 12/22/16 15:50 68 16 126/69 93 Nebulizer 15.0 12/22/16 15:13 68 16 133/98 91 Nasal Cannula 2.0 12/22/16 14:26 67 14 160/86 97 Nasal Cannula 12/22/16 13:26 65 12/22/16 13:09 62 16 146/76 93 Room Air 12/22/16 13:00 36.5 93 20 98 Room Air Lab Results (24Hrs) Laboratory Tests (24 Hours) Test 12/22/16 14:40 12/22/16 16:52 12/22/16 17:34 Erythrocyte Sedimentation Rate 56 mm/hr (0-21) H Procalcitonin 17.87 ng/ml (0-0.5) H Total Creatine Kinase 3167 U/L (26-192) H White Blood Count 17.66 K/uL (4.8-10.8) H Red Blood Count 4.63 M/uL (4.2-5.4) Hemoglobin 13.7 g/dL (12.0-16.0) Hematocrit 40.5 % (37-47) Mean Corpuscular Volume 87.5 fL (80-100) Mean Corpuscular Hemoglobin 29.6 pg (25-34) Mean Corpuscular Hemoglobin Concent 33.8 g/dl (32-36) Platelet Count 149 K/uL (130-400) Mean Platelet Volume 10.1 fL (7.4-10.4) C-Reactive Protein 16.90 mg/dl (0-0.29) H Lactic Acid Level 1.6 mmol/L (0.4-2.0) Micro Results Date/Time Source Procedure Growth Status 12/22/16 14:54 Blood Blood Culture Pending Received 12/22/16 14:40 Blood Blood Culture Pending Received 12/22/16 19:15 Nasal MRSA DNA Surveillance Screen Pending Received 12/22/16 18:16 Fine Needle Aspirate Knee Right Gram Stain Pending Received 12/22/16 18:16 Fine Needle Aspirate Knee Right Wound Culture Pending Received 12/22/16 18:16 Incision Site Knee Right Gram Stain Pending Received 12/22/16 18:16 Incision Site Knee Right Wound Culture Pending Received Risk Factors for Resistance None identified at this time Assessment & Plan Assessment 86 year old female on empiric IV Zosyn and Vancomycin for septic shock secondary to RLE cellulitis, possible septic R knee * Presents in acute renal failure; sCr = 2.2 mg/dL with estimated CrCl ~20 mL/ min. Baseline sCr ~1.1 mg/dL * Unable to safely initiate Vancomycin maintenance regimen at this time, therefore will dose Vancomycin based on random levels until renal function improves to baseline/stabilizes Plan Vancomycin IV * Loading dose: 2000 mg (~22 mg/kg) given in ED/ICU --> she received 1000mg x 2 separate infusions at 1439 and 1820 * Goal trough level for sepsis : 15 to 20 mcg/mL * Random level ordered for 12/23 with AM labs * Subsequent dosing to be determined based on random levels Piperacillin/tazobactam * 4.5 g bolus administered over 30 minutes, then 4.5 g IV extended infusion every 8 hours for CrCl greater than 20 mL/min OR every 12 hours for CrCl 20 mL/ min or less and dialysis. * Aggressive dosing selected due to critically ill status/BMI 35 or more * Renal function currently ~20 mL/min; she should technically receive Zosyn q12. However, anticipate that renal function will improve with hydration. Furthermore, she is critically ill. Therefore, chose q8 dosing at this time. Pharmacy will continue to follow and will adjust dose/frequency as necessary. Thank you.
[2016-12-22] MEDS: NORMOSOL R 1,000 ML IV SCH (22:17)
[2016-12-22] MEDS: RANITIDINE IV 50 MG in DEXTROSE 5% 100ML 100 ML IV SCH (22:18)
[2016-12-22 22:30] LABS: URINE APPEARANCE CLOUDY (CLEAR); URINE BILIRUBIN NEG (NEG); URINE COLOR DK YELLOW; URINE EPITHELIAL CELL AUTO 0-5 /lpf (0-5); URINE NITRITE NEG (NEG); URINE SPECIFIC GRAVITY 1.024 (1.000-1.030); UROBILINOGEN NEG (NEG)
[2016-12-22 22:31] LABS: MANUAL MICROSCOPIC REQUIRED? NO; REVIEW REQ? NO
--- NOTE | 2016-12-22 22:44 | DIAGNOSTIC IMAGING REPORT ---
RIGHT LOWER EXTREMITY CT CT DOSE: 582.96 mGy.cm HISTORY: Right leg swelling. sepsis Right TECHNIQUE: Multiaxial CT images of the right lower extremity were performed and reformatted in the sagittal and coronal plane without the use of contrast. A dose lowering technique was utilized adhering to the principles of ALARA. COMPARISON: Right leg venous Doppler 12/22/2016. Right tibia/fibula 12/22/2016. FINDINGS: Partially visualized soft tissue stranding surrounding the external iliac/common femoral vessels. The patient's known right superficial femoral vein thrombus is not well visualized on this noncontrast study. There is moderate calcified plaque throughout the right lower terminate arterial system. Subcutaneous edema and skin thickening within the right lower leg, right ankle, and right foot. No loculated fluid collections on this noncontrast study to suggest an abscess. No significant knee effusion. There is a Hill catheter within the decompressed bladder. Gas within the bladder lumen is likely due to the catheterization. Chondrocalcinosis within the right knee. 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 No underlying bony destruction to suggest an osteomyelitis within the right lower extremity. There is a partially visualized left knee prosthesis. Mildly prominent right inguinal lymph nodes in comparison to the left. Old, healed right pubic bone fractures. No acute fracture or dislocation within the right lower extremity. IMPRESSION: 1. Extensive subcutaneous edema within the right lower leg, ankle, and foot as well as skin thickening. No definite loculated fluid collections on this noncontrast study to suggest an abscess. 2. No underlying bony destruction to suggest osteomyelitis. 3. Partially visualized fat stranding surrounding the right external iliac/common femoral vessels with mild right lingual lymphadenopathy. This could be due to a nonvisualized venous thrombus or infectious/inflammatory change. A small right extraperitoneal hematoma could also have a similar appearance. A contrast-enhanced CT of the pelvis is recommended for further evaluation. This can be performed at a 120 second delay to evaluate the venous structures. Electronically signed by: Justin Lepe M.D. 12/22/2016 10:43 PM Dictated Date/Time: 12/22/2016 10:33 PM
--- NOTE | 2016-12-22 22:48 | DIAGNOSTIC IMAGING REPORT ---
HEAD CT NONCONTRAST CT DOSE: 614.27 mGy.cm HISTORY: disorientation, possible sepsis, septic emboli vs clotting? TECHNIQUE: Multiaxial CT images of the head were performed without the use of intravenous contrast. Automated exposure control was utilized for this study. A dose lowering technique was utilized adhering to the principles of ALARA. Comparison: Head CT 06/14/2013. Findings: The paranasal sinuses and mastoid air cells are clear. The calvarium and skull base are intact. The ventricles and sulci are within normal limits. There is no mass, hematoma, midline shift, or acute infarct. Left-sided scalp nodules are again noted. These may represent sebaceous cyst. Mild motion artifact. 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 Old lacunar infarct within the right thalamus. Impression: Mild motion artifact. No definite acute intracranial abnormality. Old infarcts as described above. Electronically signed by: Justin Lepe M.D. 12/22/2016 10:47 PM Dictated Date/Time: 12/22/2016 10:43 PM
--- NOTE | 2016-12-22 23:16 | ORTHOPEDIC CONSULTATION ---
DATE OF CONSULTATION: 12/22/2016 ORTHOPEDIC EMERGENCY DEPARTMENT CONSULTATION REASON FOR CONSULTATION: Special attention to right leg swelling. HISTORY OF PRESENT ILLNESS: This is an 86-year-old female with progressive onset of swelling in the right lower extremity, for the past several days, she notes difficulty with weightbearing. As per the Emergency Department staff, she came in a lethargic and confused state and in the interim has regained improved mentation and consciousness. Orthopedics was consulted for a knee aspiration on the right. PAST SURGICAL HISTORY: Includes status post total knee replacement by Dr. Kovacs on the right, many years ago. Left total knee replacement also done many years ago. She is status post a prepatellar bursectomy done approximately 3 years ago in the right knee. She notes no problems since her interval prepatellar bursectomy. PAST MEDICAL HISTORY: Includes in her HPI. A She received 1 gram of Rocephin and vancomycin in the Emergency Department. LABORATORY STUDIES: White count is 17.6. C-reactive protein is elevated at 16.9. INR 2.5. Sed rate elevated at 56. PHYSICAL EXAMINATION: EXTREMITIES: Right lower extremity examination does show moderate to significant swelling of the right lower extremity. Swelling shows mostly below the knee. I did not take any palpable knee effusion. She has a scant fluctuance in the region of the prepatellar bursa. She has a well-healed surgical incision over the knee. Calf is visibly warm and tender to palpation. I do not detect any areas of fluctuance or discrete abscess in the calf. She can flex and extend the toes and the foot is grossly warm and well perfused. She exhibits a small scab over the anterior prepatellar bursa. She states she was gardening recently and had a minor abrasion in that region. ASSESSMENT: Right lower extremity infection, rule out a septic total knee status post arthroplasty. PLAN: I discussed treatment with the patient at the request of the ICU staff, they would like aspiration of the knee to rule out any intra-articular infection and prosthetic infection. PROCEDURE NOTE: The right knee was prepped with alcohol and then reprepped with Betadine, and I injected 4 mL of lidocaine for my superior lateral approach to the knee. With an 18 gauge needle, I aspirated the knee joint and I did not obtain any significant fluid from the knee joint. I then likewise, prepped the prepatellar bursa in the standard fashion. I injected a small amount of lidocaine in the local area. I obtained a scant amount of serous fluid from that area. I sent superficial cultures from drainage that I squeezed out of the olecranon bursa and I sent deeper prepatellar bursa fluid as well to laboratory for culture. Dry sterile dressing was applied. Will continue to follow the patient, I would recommend either MRI or CAT scan depending on patient's stability to evaluate for any abscess in the right lower extremity. Continue antibiotics as per hospitalist and ICU physician. We will continue to follow.
--- NOTE | 2016-12-22 23:23 | DIAGNOSTIC IMAGING REPORT ---
(CHEST) THORAX WITHOUT CT DOSE: 739.05 mGy.cm HISTORY: ? PE. Hypoxia TECHNIQUE: Multiaxial CT images of the chest were performed without contrast. A dose lowering technique was utilized adhering to the principles of ALARA. COMPARISON: Chest CT 06/13/2013. FINDINGS: Suboptimal dilation the chest due to respiratory motion artifact. This study is nondiagnostic to evaluate for a pulmonary embolus due to the lack of intravenous contrast. There are no dense areas of opacification within the main pulmonary arteries to suggest an embolus. Right-sided pacemaker is again noted. The heart is mildly enlarged. Mitral annulus calcifications. There are coronary artery calcifications. The ascending thoracic aorta measures up to 4.3 cm in diameter. This previously measured 4.1 cm in diameter. No pericardial effusion. No significant pleural effusions. Fluid-filled left subcoracoid recess containing intra-articular loose bodies. This is considered to be chronic. No mediastinal or hilar lymphadenopathy. The visualized liver and spleen are unremarkable. Right shoulder prosthesis. Old, healed right-sided rib fractures. No pneumothorax. The central airways are patent. A 7 mm groundglass nodule within the right lung apex. Patchy bibasilar density favors subsegmental atelectasis. A stable 5 mm nodule within the right middle lobe on image 175. Scattered groundglass densities may be due to mild congestive change. Mild interlobular septal thickening within the right lung apex. IMPRESSION: 1. Scattered groundglass densities and mild interlobular septal thickening within the right lung apex. This favors mild congestive change. 2. Patchy bibasilar densities favor subsegmental atelectasis. 3. Cardiomegaly. 4. The ascending thoracic aorta measures up to 4.3 cm diameter. 5. The study is essentially nondiagnostic to evaluate for a pulmonary embolus due to the lack of intravenous contrast. However, there are no dense areas of opacification within the main pulmonary arteries to suggest a large embolus. Electronically signed by: Justin Lepe M.D. 12/22/2016 11:22 PM Dictated Date/Time: 12/22/2016 11:12 PM
[2016-12-23] VITALS (35 sets, daily range): BP systolic 96–130; BP diastolic 47–91; PULSE 60–95; TEMP 36.5–37.2; O2SAT 83–98
[2016-12-23] MEDS: PIPERACILL/TAZOBAC IV 4.5 GM in DEXTROSE 5% 100ML IV SCH ×3 (00:20→15:44)
[2016-12-23] MEDS: CLINDAMYCIN IV 900 MG in DEXTROSE 5% 100ML 100 ML IV SCH ×3 (02:33→18:10)
[2016-12-23 05:48] LABS: BASO % 0.1 %; BASO ABS # 0.01 K/uL (0-0.2); COMPLETE YES; HEMATOCRIT 35.3 % (37-47); LYMPH % 6.9 %; LYMPH ABS # 0.87 K/uL (1.2-3.4); MEAN CELL VOLUME 90.3 fL (80-100); MEAN CORPUSCULAR HEMOGLOBIN 28.4 pg (25-34); MEAN CORPUSCULAR HGB CONC 31.4 g/dl (32-36); MEAN PLATELET VOLUME 9.7 fL (7.4-10.4); MONO % 7.9 %; NEUT % 84.1 %; PLATELET COUNT 111 K/uL (130-400); RED BLOOD COUNT 3.91 M/uL (4.2-5.4); WHITE BLOOD COUNT 12.69 K/uL (4.8-10.8)
[2016-12-23 06:09] LABS: BUN/CREATININE RATIO 24.5 (10-20); CALCIUM 7.8 mg/dl (8.5-10.1); CREATININE 1.9 mg/dl (0.60-1.20); MAGNESIUM 2.1 mg/dl (1.8-2.4); POTASSIUM 4.2 mmol/L (3.5-5.1)
[2016-12-23 06:21] LABS: PHOSPHORUS 3.8 mg/dl (2.5-4.9)
[2016-12-23 06:31] LABS: INR 2.8 (0.9-1.1); PROTHROMBIN TIME (PATIENT) 31.5 SECONDS (9.0-12.0)
[2016-12-23] MEDS: NORMOSOL R 1,000 ML IV SCH ×3 (07:51→19:15)
--- NOTE | 2016-12-23 08:35 | Pharmacy Progress Note ---
Pharmacy Abx Dose Progress Nt Date of Service Dec 23, 2016. Pharmacy Dosing Scope The patient is currently receiving the following antimicrobial agents per Pharmacy consult: * Vancomycin 1000 mg IV x 1 dose yesterday at 1439, another dose was ordered for 1820 to give a loading dose of 2 grams total, but second 1 gram bag was never hung by nursing * Zosyn 4.5g IV Q8H Objective Height (Feet): 5 Height (Inches): 2.00 Weight (Kilograms): 88.100 Vital Signs (Past 12Hrs) Vital Signs Past 12 Hours Date Time Temp Pulse Resp B/P (MAP) Pulse Ox O2 Delivery O2 Flow Rate FiO2 12/23/16 08:02 36.9 69 16 130/84 (99) 93 Oxymask 2.0 12/23/16 08:00 Oxymask 2.0 12/23/16 06:31 67 18 117/67 (84) 94 Oxymask 4.0 12/23/16 06:01 65 19 115/67 (83) 95 Oxymask 4.0 12/23/16 05:31 66 18 103/69 (80) 83 Oxymask 4.0 12/23/16 05:02 64 19 121/66 (84) 96 Oxymask 4.0 12/23/16 04:31 67 24 115/58 (77) 95 Oxymask 4.0 12/23/16 04:09 96 Oxymask 4.0 12/23/16 04:01 37.1 65 20 104/58 (73) 94 Oxymask 4.0 12/23/16 03:31 70 18 101/66 (78) 95 Oxymask 4.0 12/23/16 03:01 70 19 106/56 (73) 92 Oxymask 4.0 12/23/16 02:31 70 18 114/57 (76) 91 Oxymask 4.0 12/23/16 02:01 37.2 67 19 108/65 (79) 94 Oxymask 4.0 12/23/16 01:31 67 20 101/58 (72) 93 Oxymask 4.0 12/23/16 01:01 66 18 115/60 (78) 92 Oxymask 4.0 12/23/16 00:31 62 17 106/47 (66) 92 Oxymask 4.0 12/23/16 00:28 94 Oxymask 4.0 12/23/16 00:01 63 16 103/52 (69) 94 Oxymask 4.0 12/22/16 23:31 37.1 80 16 108/50 (69) Oxymask 4.0 12/22/16 23:01 66 17 108/54 (72) 93 Oxymask 4.0 12/22/16 22:31 70 16 112/59 (76) 98 Oxymask 4.0 12/22/16 22:11 70 16 109/72 (84) 97 Oxymask 4.0 12/22/16 21:31 67 17 118/56 (76) 95 Oxymask 4.0 12/22/16 21:01 67 17 114/60 (78) Oxymask 4.0 12/22/16 20:50 66 18 99 Mask 4.0 12/22/16 20:32 63 18 106/57 (73) 98 Oxymask 4.0 Lab Results (24Hrs) Laboratory Tests (24 Hours) Item Value Date Time Creatinine 1.90 mg/dl H # 12/23/16 0537 Est Creatinine Clear Calc Drug Dose 23.0 ml/min 12/23/16 0537 Creatinine 2.20 mg/dl H 12/22/16 1440 Est Creatinine Clear Calc Drug Dose 19.9 ml/min 12/22/16 1440 Test 12/22/16 14:40 12/22/16 16:52 12/23/16 05:37 Erythrocyte Sedimentation Rate 56 mm/hr (0-21) H Procalcitonin 17.87 ng/ml (0-0.5) H Total Creatine Kinase 3167 U/L (26-192) H C-Reactive Protein 16.90 mg/dl (0-0.29) H Lactic Acid Level 1.2 mmol/L (0.4-2.0) White Blood Count 12.69 K/uL (4.8-10.8) H Red Blood Count 3.91 M/uL (4.2-5.4) L Hemoglobin 11.1 g/dL (12.0-16.0) L Hematocrit 35.3 % (37-47) L Mean Corpuscular Volume 90.3 fL (80-100) Mean Corpuscular Hemoglobin 28.4 pg (25-34) Mean Corpuscular Hemoglobin Concent 31.4 g/dl (32-36) L Platelet Count 111 K/uL (130-400) L Mean Platelet Volume 9.7 fL (7.4-10.4) Neutrophils (%) (Auto) 84.1 % Lymphocytes (%) (Auto) 6.9 % Monocytes (%) (Auto) 7.9 % Eosinophils (%) (Auto) 0.0 % Basophils (%) (Auto) 0.1 % Neutrophils # (Auto) 10.68 K/uL (1.4-6.5) H Lymphocytes # (Auto) 0.87 K/uL (1.2-3.4) L Monocytes # (Auto) 1.00 K/uL (0.11-0.59) H Eosinophils # (Auto) 0.00 K/uL (0-0.5) Basophils # (Auto) 0.01 K/uL (0-0.2) Micro Results Date/Time Source Procedure Growth Status 12/22/16 14:54 Blood Blood Culture Pending Received 12/22/16 14:40 Blood Blood Culture Pending Received 12/22/16 19:15 Nasal MRSA DNA Surveillance Screen - Final Specimen Negative for MRSA by DNA Probe Complete 12/22/16 21:50 Urine , Clean Catch Urine Culture Pending Received 12/22/16 18:16 Fine Needle Aspirate Knee Right Gram Stain - Final Resulted 12/22/16 18:16 Fine Needle Aspirate Knee Right Wound Culture Pending Resulted 12/22/16 18:16 Incision Site Knee Right Gram Stain - Final Resulted 12/22/16 18:16 Incision Site Knee Right Wound Culture Pending Resulted Assessment & Plan Assessment 86 year old female receiving IV Vancomycin, Zosyn, and Clindamycin for treatment of Septic shock secondary to RLE cellulitis Day # 2 of antimicrobial therapy Renal function improving from 2.2mg/dl down to 1.9mg/dl, baseline in November was 1.1mg/dL, anticipate continued improvement today Will need to continue to consider renal function changes in dosing/interval of Vancomycin. Plan Vancomycin IV * Random level of 17.4 mcg/mL is therapeutic after 1 dose of 1000mg yesterday, trough drawn about 12 hours after dose completely infused * Begin 1000 mg IV every 12 hours * Goal trough level for sepsis with RLE Cellulitis : 15 to 20 mcg/mL * Trough level ordered for: 12/24/16 prior to 0900 dose, this will be after patient has received 3 total doses of Vancomycin * Less than traditional dose (11mg/kg) selected due to likelihood of drug accumulation in obese patient, and ARF, although renal function is improving. Piperacillin/tazobactam * Continue 4.5 g IV extended infusion every 8 hours for CrCl greater than 20 mL/ min Pharmacy will continue to follow and will adjust dose/frequency as necessary. Thank you.
--- NOTE | 2016-12-23 08:44 | Orthopedic Progress Note ---
Orthopedic Progress Note Date of Service Dec 23, 2016. Subjective Denies: chest pain, SOB, nausea / vomiting, light headedness Additional Notes: STATES HER KNEE IS FEELING BETTER. SHE HAS NO PAIN THERE. HER BIGGEST COMPLAINT IS HER RIGHT LOWER LEG AND ANKLE. SHE IS HAVING DISCOLORATION, EDEMA, AND PAIN. NO PRIOR HISTORY OF ANKLE ISSUES. SHE DOES HAVE HISTORY OF CELLULITIS. NO HISTORY OF GOUT. Objective KNEE APPEARS FAIRLY BENIGN. LITTLE TO NO EFFUSION OF THE JOINT OR PREPATELLAR AREA. SHE DOES HAVE A SMALL ABRASION OVER THE ANTERIOR KNEE. SHE DOES HAVE A SMALL MIDLINE INCISION BUT NO KNEE REPLACEMENT. KNEE IS NON TENDER, NO ERYTHEMA , NO DRAINAGE. LOWER LEG WITH MODERATE EDEMA, SIGNIFICANTLY TENDER, SKIN DISCOLORATION. ANKLE IS SWOLLEN, ROM IS DECREASED AN PAINFUL. SHE IS DIFFUSELY TENDER. TOES ARE MOBILE, CAP REFILL INTACT. Date Time Temp Pulse Resp B/P (MAP) Pulse Ox O2 Delivery O2 Flow Rate FiO2 12/23/16 08:02 36.9 69 16 130/84 (99) 93 Oxymask 2.0 12/23/16 08:00 Oxymask 2.0 12/23/16 06:31 67 18 117/67 (84) 94 Oxymask 4.0 12/23/16 06:01 65 19 115/67 (83) 95 Oxymask 4.0 12/23/16 05:31 66 18 103/69 (80) 83 Oxymask 4.0 12/23/16 05:02 64 19 121/66 (84) 96 Oxymask 4.0 12/23/16 04:31 67 24 115/58 (77) 95 Oxymask 4.0 12/23/16 04:09 96 Oxymask 4.0 12/23/16 04:01 37.1 65 20 104/58 (73) 94 Oxymask 4.0 12/23/16 03:31 70 18 101/66 (78) 95 Oxymask 4.0 12/23/16 03:01 70 19 106/56 (73) 92 Oxymask 4.0 12/23/16 02:31 70 18 114/57 (76) 91 Oxymask 4.0 12/23/16 02:01 37.2 67 19 108/65 (79) 94 Oxymask 4.0 12/23/16 01:31 67 20 101/58 (72) 93 Oxymask 4.0 12/23/16 01:01 66 18 115/60 (78) 92 Oxymask 4.0 12/23/16 00:31 62 17 106/47 (66) 92 Oxymask 4.0 12/23/16 00:28 94 Oxymask 4.0 12/23/16 00:01 63 16 103/52 (69) 94 Oxymask 4.0 12/22/16 23:31 37.1 80 16 108/50 (69) Oxymask 4.0 12/22/16 23:01 66 17 108/54 (72) 93 Oxymask 4.0 12/22/16 22:31 70 16 112/59 (76) 98 Oxymask 4.0 12/22/16 22:11 70 16 109/72 (84) 97 Oxymask 4.0 12/22/16 21:31 67 17 118/56 (76) 95 Oxymask 4.0 12/22/16 21:01 67 17 114/60 (78) Oxymask 4.0 12/22/16 20:50 66 18 99 Mask 4.0 12/22/16 20:32 63 18 106/57 (73) 98 Oxymask 4.0 12/22/16 20:22 94 Oxymask 4.0 12/22/16 19:09 36.6 67 16 123/61 (81) 94 Oxymask 4.0 12/22/16 17:59 69 16 122/67 96 Mask 12/22/16 16:49 66 16 131/95 12/22/16 16:26 66 18 149/86 99 Nebulizer 12/22/16 16:00 99 Nasal Cannula 3.0 12/22/16 15:51 12 93 Mask 3.0 12/22/16 15:50 68 16 126/69 93 Nebulizer 15.0 12/22/16 15:13 68 16 133/98 91 Nasal Cannula 2.0 12/22/16 14:26 67 14 160/86 97 Nasal Cannula 12/22/16 13:26 65 12/22/16 13:09 62 16 146/76 93 Room Air 12/22/16 13:00 36.5 93 20 98 Room Air Laboratory Results 24 Hours: Test 12/22/16 14:40 12/23/16 05:37 White Blood Count 17.66 K/uL 12.69 K/uL Red Blood Count 4.63 M/uL 3.91 M/uL Hemoglobin 13.7 g/dL 11.1 g/dL Hematocrit 40.5 % 35.3 % Mean Corpuscular Volume 87.5 fL 90.3 fL Mean Corpuscular Hemoglobin 29.6 pg 28.4 pg Mean Corpuscular Hemoglobin Concent 33.8 g/dl 31.4 g/dl Platelet Count 149 K/uL 111 K/uL Mean Platelet Volume 10.1 fL 9.7 fL Prothromb Time International Ratio 2.5 2.8 Prothrombin Time 28.0 SECONDS 31.5 SECONDS Neutrophils (%) (Auto) 84.1 % Lymphocytes (%) (Auto) 6.9 % Monocytes (%) (Auto) 7.9 % Eosinophils (%) (Auto) 0.0 % Basophils (%) (Auto) 0.1 % Neutrophils # (Auto) 10.68 K/uL Lymphocytes # (Auto) 0.87 K/uL Monocytes # (Auto) 1.00 K/uL Eosinophils # (Auto) 0.00 K/uL Basophils # (Auto) 0.01 K/uL Additional Notes: Item Value Date Time C-Reactive Protein 16.90 mg/dl H 12/22/16 1652 Erythrocyte Sedimentation Rate 56 mm/hr H 12/22/16 1440 GRAM STAIN Final 12/23/16-0808 RESULT RARE GRAM VARIABLE BACILLI NO WBCs SEEN DEEP WOUND CULTURE PENDING Assessment & Plan Assessment: 1. RIGHT KNEE PAIN 2. LEFT ANKLE PAIN/SWELLING Plan: KNEE WAS ASPIRATED YESTERDAY BY DR TAYLOR, NO FLUID FROM THE KNEE BUT HE DID GET SOME PREPATELLAR FLUID. FOLLOW CULTURE RESULTS. NOTED- PATIENT DOES NOT HAVE A RIGHT KNEE REPLACEMENT? NEW, WORSENING ANKLE PAIN TODAY. WILL CHECK AN XRAY. CT SCAN OF THE LE SHOWS NO ABSCESS OR OSTEOMYELITIS DOPPLER POTENTIALLY POSTIVE FOR CHRONIC DVT. CONTINUE PAIN MGT CONTINUE MEDICAL MGT. Xray of ankle shows likely old medial malleolus fx. Mild arthritic changes. No acute changes. She is not having much pain with passive motion. No pain along the foot. Will continue to observe but if ankle pain doesn't resolve then would consider aspirating to r/o joint infection
[2016-12-23] MEDS ORDERED: PANTOprazole SOD 40 MG TAB PO SCH (09:00)
[2016-12-23] MEDS ORDERED: FUROSEMIDE 20 MG TAB PO SCH (09:00)
[2016-12-23] MEDS: MULTIVITAMIN TAB PO SCH (09:00)
[2016-12-23] MEDS: VANCOMYCIN INJ 1,000 MG in SODIUM CHLORIDE 0.9% 250ML 250 ML IV SCH ×2 (10:09→20:42)
--- NOTE | 2016-12-23 10:25 | DIAGNOSTIC IMAGING REPORT ---
ABD/PELVIS NO IV OR ORAL CONT HISTORY: 86 years-old Female she has infrarenal AAA with fat stranding. Drop Hb. Acute drop in hemoglobin with history of abdominal aortic aneurysm. Initial exam. COMPARISON: Right lower extremity duplex venous Doppler 12/22/2016, CT right lower extremity 12/22/2016, CTA 01/12/2014 TECHNIQUE: Multiple axial CT images of the abdomen and pelvis were obtained without contrast. A dose lowering technique was used consistent with the principals of NORMA. FINDINGS: There are trace bilateral pleural effusions with subsegmental bibasilar consolidations. Heart is enlarged with dense mitral annular and coronary arterial calcifications. Pacer leads overlie the right heart. There is no pneumoperitoneum identified. The liver, spleen, and right adrenal gland are unremarkable. Gallbladder is mildly distended without CT evidence of acute cholecystitis. Nodular thickening of the left adrenal gland is present suggesting hyperplasia. There is severe pancreatic atrophy. Multifocal cortical thinning and scarring involves the bilateral kidneys. No hydronephrosis. Urinary bladder is collapsed with Hill catheter in place. Nondependent air within the Hill catheter is likely secondary to instrumentation. Uterus appears age appropriate. Moderate atherosclerotic plaquing of the abdominal aorta is present. There is a progressively enlarged fusiform aneurysm dilation of the infrarenal abdominal aorta, 6.2 x 6.1 cm seen on image 202, previously measuring up to 5.1 x 5.1 cm on study dated 01/12/2014 when measured in a similar manner. IVC filter is noted within the infrarenal location. Nonspecific mild periaortic, pericaval and right iliac chain adenopathy is seen with nodes measuring up to 1.0 cm in short axis. Additionally, there is a moderate degree of fat stranding which is centered around the right external iliac artery and vein as well as the right common femoral artery and vein as seen on images 273 through 335 of the axial series. No large retroperitoneal hematoma identified. Stranding involving the lower pelvis is likely reactive from the aforementioned inflammatory changes. Mild right inguinal adenopathy. There is no bowel obstruction. 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 Moderate right parastomal hernia noted. Additionally, moderate ventral midline supraumbilical fat filled hernias are present with diastases measuring up to 3.3 cm. Diastases recti is noted. Bones are moderately demineralized. Severe multilevel facet arthrosis is seen within the lower lumbar spine. Large superior endplate Schmorl's node at L3 without significant retropulsion, unchanged from 2014. Remote right pelvic ring fracture noted. IMPRESSION: 1. Progressive enlargement of the infrarenal abdominal aortic aneurysm now measuring 6.2 x 6.1 cm, previously measuring 5.1 x 5.1 cm when measured in a similar fashion on study dated 01/12/2014. No evidence of aneurysm rupture. This could be further evaluated with a CT angiogram. 2. Mild nonspecific periaortic, pericaval, right iliac chain and inguinal adenopathy with moderate inflammatory stranding surrounding the right external iliac and common femoral vasculature. Inflammatory changes may be related to patient's known deep venous thrombosis as seen on comparison duplex study 12/22/2016. No large retroperitoneal hematoma identified. 3. Trace bilateral pleural effusions with subsegmental bibasilar consolidation suggesting atelectasis or pneumonia. 4. Moderate right parastomal hernia with additional fat filled supraumbilical ventral abdominal wall hernias noted as above. The above report was generated using voice recognition software. It may contain grammatical, syntax or spelling errors. Electronically signed by: Giancarlo Desai M.D. 12/23/2016 10:24 AM Dictated Date/Time: 12/23/2016 10:01 AM
[2016-12-23] MEDS: ACETAMINOPHEN 325 MG TAB PO PRN (10:30)
--- NOTE | 2016-12-23 10:36 | DIAGNOSTIC IMAGING REPORT ---
RIGHT ANKLE MIN 3 VIEWS ROUTINE HISTORY: 86 years-old Female RIGHT ANKLE PAIN Right acute right ankle pain with cellulitis. Follow-up study. COMPARISON: Right lower extremity CT 12/22/2016 TECHNIQUE: 3 views of the right ankle. FINDINGS: Moderate to extensive soft tissue swelling involves the right lower extremity, notably around the foot and ankle and also involving the lower leg with peripheral vascular calcifications. Moderate degenerative changes are seen throughout the midfoot and hindfoot without acute fracture or dislocation. There is moderate spurring of the plantar calcaneus. Bones are mildly demineralized. IMPRESSION: 1. Moderate degenerative changes of the midfoot and hindfoot without acute fracture or dislocation. 2. Persistent extensive soft tissue swelling about the right lower extremity appears stable from comparison. Differential considerations would include cellulitis, lymphedema or venous stasis. 3. Peripheral vascular disease. The above report was generated using voice recognition software. It may contain grammatical, syntax or spelling errors. Electronically signed by: Giancarlo Desai M.D. 12/23/2016 10:34 AM Dictated Date/Time: 12/23/2016 10:31 AM
--- NOTE | 2016-12-23 11:10 | ECHOCARDIOGRAM REPORT ---
*NOTICE TO RECEIVING REPUBLICAN AGENCY This information is strictly Confidential and protected under [place] law. [place] law prohibits you from making any further disclosure of this information unless further disclosure is expressly permitted by the written consent of the person to whom it pertains or is authorized by law. A general authorization for the release of medical or other information is not sufficient for this purpose. Hospital accepts no responsibility if the information is made available to any other person, INCLUDING THE PATIENT. Interpretation Summary * Name: LEONARD NAYAK Study Date: 12/23/2016 06:27 AM BP: 104/58 mmHg * Patient Location: .MSICU\S\E107\S\1 HR: 67 * : 1930 (M/d/yyy) Gender: Female Height: 62 in * Age: 86 yrs Ethnicity: [place] Weight: 198 lb * Ordering Physician: Laura Lechuga * Referring Physician: Self, Referred * Performed By: Mary Kate Rodríguze RCS * * Reason For Study: ENDOCARDITIS / ELEVATED TROPONIN * BSA: 1.9 m2 * -- Conclusions -- * Left ventricular systolic function is normal. * No regional wall motion abnormalities noted. * Ejection Fraction = 55-60%. * There is mild concentric left ventricular hypertrophy. * Diastolic dysfunction, Grade II (pseudonormalization pattern). 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 * Mild mitral stenosis. * Moderate mitral regurgitation. Procedure Details * A complete two-dimensional transthoracic echocardiogram was performed (2D, M-mode, Doppler and color flow Doppler). * The study was technically difficult. * A contrast injection of Definity was performed to improve assessment of LV function. * Contrast was injected into an intravenous site in the central line. * One vial of Definity ultrasound contrast was diluted in normal saline to a total volume of 10 ml. A total of '1' ml of solution was administered during imaging. * Lot # [id number] of Definity utilized for procedure. * Expiration date FEB 05. * The attending nurse who injected the contrast agent was MALATHI MACKEY RN. Left Ventricle * The left ventricle is normal in size. * There is mild concentric left ventricular hypertrophy. * Left ventricular systolic function is normal. * Ejection Fraction = 55-60%. * No regional wall motion abnormalities noted. Right Ventricle * The right ventricle is not well visualized. Atria * The left atrium is moderately dilated. * The right atrium is mildly dilated. * No ASD detected; PFO is not assessed. Mitral Valve * The mitral valve is not well visualized. * There is mild mitral stenosis. * There is moderate mitral regurgitation. Tricuspid Valve * The tricuspid valve is not well visualized. * Significant tricuspid regurgitation is absent. Aortic Valve * The aortic valve is not well visualized. 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 * There is no significant aortic regurgitation. Pulmonic Valve * The pulmonary valve is not well seen, but the Doppler examination is normal without significant regurgitation or stenosis. Great Vessels * The aortic root is normal size. * The pulmonary is not well visualized. Pericardium/Pleural * There is no pericardial effusion. Great Vessels * IVC not well visualized. Left Ventricular Diastolic Function * Diastolic dysfunction, Grade II (pseudonormalization pattern). MMode 2D Measurements and Calculations IVSd 1.8 cm IVSs 1.5 cm LVIDd 3.2 cm LVPWd 2.3 cm IVS/LVPW 0.81 EDV(Teich) 41.3 ml EDV(cubed) 33.1 ml % IVS thick -17.66 % LV mass(C)d 297.8 grams LV mass(C)dI 156.5 grams/m\S\2 LVOT diam 2.0 cm LVOT area 3.1 cm\S\2 Doppler Measurements and Calculations MV E max loan 150.4 cm/sec MV A max loan 87.4 cm/sec MV E/A 1.7 MV P1/2t max loan 204.8 cm/sec MV P1/2t 83.7 msec MVA(P1/2t) 2.6 cm\S\2 MV dec slope 716.9 cm/sec\S\2 MV dec time 0.22 sec Ao V2 max 252.2 cm/sec Ao max PG 25.5 mmHg Ao max PG (full) 19.0 mmHg Ao V2 mean 182.4 cm/sec Ao mean PG 15.3 mmHg Ao V2 VTI 52.3 cm JEREMIAH(V,A) 1.6 cm\S\2 JEREMIAH(V,D) 1.6 cm\S\2 LV V1 max PG 6.4 mmHg LV V1 max 126.2 cm/sec MR max loan 521.2 cm/sec MR max PG 108.7 mmHg
--- NOTE | 2016-12-23 11:14 | Critical Care Progress Note ---
Critical Care Progress Note Date of Service Dec 23, 2016. ICU Day ICU Day Number: [address] Johnson Subjective Patient is an 86-year-old female who is reported to have the following medical problems. #1 hypertension #2 long-term anticoagulation use secondary to DVT as well as pulmonary embolism. 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 She was started on 1 g Rocephin, 1 g vancomycin and ICU had added clindamycin 900 mg TID. For the concern of possible septic joint, Dr. Meng of orthopedics was consult in the emergency department, who attempted to aspirate the knee, there was no joint fluid noted and obtained a prepatellar bursa culture as well as superficial wound culture. She was administered approximately 1800 mL of normal saline. 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 Patient is DNR/DNI after a prolonged discussion of CODE STATUS with her and her daughter, Elizabeth Singh. (cell phone [phone]). This morning she is more alert and is oriented to place time and person. She describes her medical condition accurately. He coumadin has been held and heparin started. She describes easy bruisability. She has pain in the ankle and in the leg/knee on the right. It is erythematous and feels warm. Objective GENERAL: not in acute distress pleasant HENT right sided IJ TL CVC in place with a small hematoma around it. LUNGS b/l CTA but breath sounds are distant. Pectus excavatum with some protrusion of the cephalic sternum. HEART nl s1 s2 but she has a loud holosystolic ejection murmur 3/4 non radiating hear all over precordium ABDOMEN soft non tender no scars BS heard. She has an ileostomy bag in place no erythema or discharge around the site EXTREMITIES swollen RLE medially between the knee and the ankle it is erythematous, and tender, ankle swelling as well. It is warm to touch. left leg has no erythema and no swelling or warmth. Scars of bilateral knee replacements noted and healed. toes are not swollen nor painful. MM well hydrted NEUROLOGIC A A Ox3 moves all extremities except limitation RLE due to pain. There is an echocardiogram from 2015 which revealed a EF of 65%, mild aortic stenosis, mild mitral regurgitation. She has an infrarenal abdominal aortic aneurysm measuring 5.55.7 cm. 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 She has MARTÍN on CKD as well. PLAN: Neuro: Encephalopathy is improving remarkably. It is Likely multifactorial secondary to sepsis and possible narcotic medication administration Resp: Hypoxia corrects with O2 supplementation. CTS ruled out a PE. She has an IVC filter, and is therapeutic on her Coumadin. 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 CV: Cardiac disease Follow-up echocardiography Holding antihypertensives, will resume nitrates. Will hold off ranexa. Package insert reports incidence of MARTÍN when GFR is <30. Continue plavix. She denies being on asa. If she will not undergo anyprocedures by orthopedics we would go back to coumadin and hold the heparin Status post pacemaker Infrarenal abdominal aortic aneurysm. The radiology report is worrisome to fat stranding up in the thigh and the radiologist reports that retroperitoneal bleed is on the differential. Ordered a CT abdomen pelvis to rule out bleed and FU on AAA Routine vascular surgery consult as outpatient unless otherwise indicated during this admission Renal: Acute kidney injury IVF at 125 per hour strict I's and O's FU and replete lytes hold lasix hold ranexa ID: Severe sepsis secondary to complicated skin and soft tissue infection Right artificial knee aspirated by orthopedics. no evidence of arthritis. FU fluid gram stain and culture. continue: Vancomycin 2 g IV Zosyn 4.5 mg every 8 hours Clindamycin 900 mg every 8 hours Pharmacy consult for pharmacokinetic parameters GI. History of ulcerative colitis status post ileostomy start oral diet. Since on plavix will use ranitidine for GI prophylaxis Heme: Chronic anticoagulation secondary to chronic DVT On heparin but INR is therapeutic. Will DC heparin and resume coumadin if no procedures. She says they were unable to retrieve IVC filter Will FU HB HCt to ascertain stability Endocrine: Hyperglycemia Accu-Cheks per protocol Lines and catheters. Needs viera for I/O needs central line for possible pressors. If she progresses to stability and we resume her antihypertensives we will DC both central line and viera. CODE STATUS: DO NOT RESUSCITATE I spent a total of 50 minutes of CC time managing this patient today I have personally spent 45 minutes of critical care time in the direct management of this patient. This is a life/limb threatening event. This includes time spent evaluating patient, direct bedside care, chart review, placing orders, interpretation of diagnostic studies, discussion with consultants, patient, and family members, as well as other required patient management activities. This time is exclusive of all separately billable procedures, and teaching time and separate from and in addition to any other critical care service time. Consults & Procedures Consultants: orthopedic Procedures: R IJ TL CVC Data Medications: Current Inpatient Medications Medications (Trade) Dose Ordered Sig/Darrick Route Start Time Stop Time Status Last Admin Dose Admin Amlodipine Besylate (Norvasc Tab) 5 mg BID PO 12/22/16 21:00 01/21/17 20:59 Future Hold Clopidogrel Bisulfate (plAVix TAB) 75 mg DAILY PO 12/23/16 09:00 01/22/17 08:59 Gabapentin (Neurontin Tab) 600 mg TID PO 12/22/16 21:00 01/21/17 20:59 Future Hold Isosorbide Mononitrate (Imdur Ext Rel Tab) 90 mg DAILY PO 12/23/16 09:00 01/22/17 08:59 Future Hold Metoprolol Succinate (Toprol Xl Tab) 25 mg DAILY PO 12/23/16 09:00 01/22/17 08:59 Future Hold Multivitamins (Multivitamin Tab) 1 tab DAILY PO 12/23/16 09:00 01/22/17 08:59 Future Hold Oxcarbazepine (Trileptal Tab) 150 mg QID PO 12/22/16 17:00 01/21/17 16:59 Future Hold Ranolazine (Ranexa ER Tab) 500 mg BID PO 12/22/16 21:00 01/21/17 20:59 Future Hold Acetaminophen (Tylenol Tab) 650 mg Q4H PRN PO 12/22/16 16:30 01/21/17 16:29 Magnesium Hydroxide (Milk Of Magnesia Susp) 30 ml Q12H PRN PO 12/22/16 16:30 01/21/17 16:29 Ondansetron HCl (Zofran Inj) 4 mg Q6H PRN IV 12/22/16 16:30 01/21/17 16:29 Nitroglycerin (Nitrostat Tab) 0.4 mg UD PRN SL 12/22/16 16:30 01/21/17 16:29 Future Hold Polyethylene (Miralax Powder Packet) 17 gm DAILY PRN PO 12/22/16 16:30 01/21/17 16:29 Aspirin (Ecotrin Tab) 81 mg QAM PO 12/23/16 09:00 01/22/17 08:59 Albuterol/ Ipratropium (Duoneb) 3 ml Q2HWA PRN INH 12/22/16 17:00 01/21/17 16:59 12/22/16 20:50 3 ML Clindamycin Phosphate 900 mg/ Dextrose 106 ml @ 100 mls/hr Q8H IV 12/23/16 02:00 12/25/16 01:59 12/23/16 10:09 100 MLS/HR Ranitidine HCl 50 mg/Dextrose 102 ml @ 200 mls/hr DAILY@2200 IV 12/22/16 22:00 01/21/17 21:59 12/22/16 22:18 200 MLS/HR Metoprolol Tartrate (Lopressor Iv) 5 mg Q6 PRN IV 12/22/16 19:00 01/21/17 18:59 Vancomycin HCl (Consult) 1 ea UD PRN N/A 12/22/16 19:51 01/21/17 19:50 Parenteral Electrolyte Solution 1,000 ml @ 125 mls/hr Q8H IV 12/22/16 19:15 01/21/17 19:14 12/23/16 07:51 125 MLS/HR Piperacillin Sod/ Tazobactam Sod (Consult) 1 ea UD PRN N/A 12/22/16 20:00 01/21/17 19:59 Piperacillin Sod/ Tazobactam Sod 4.5 gm/Dextrose 120 ml @ 30 mls/hr Q8H IV 12/23/16 00:00 01/01/17 00:00 12/23/16 07:50 30 MLS/HR Heparin Sodium (Porcine) (Heparin 10 Unit/ ml 5 ml Flush) 5 ml PRN PRN FLUSH 12/22/16 23:45 01/21/17 23:44 Vancomycin HCl 1000 mg/Sodium Chloride 270 ml @ 125 mls/hr Q12@0900,2100 IV 12/23/16 09:00 01/02/17 08:59 12/23/16 10:09 125 MLS/HR Vital Signs: Date Time Temp Pulse Resp B/P (MAP) Pulse Ox O2 Delivery O2 Flow Rate FiO2 12/23/16 10:01 74 25 125/68 (87) 86 Room Air 12/23/16 09:02 66 18 115/73 (87) 95 Oxymask 2.0 12/23/16 08:02 36.9 69 16 130/84 (99) 93 Oxymask 2.0 12/23/16 08:00 Oxymask 2.0 12/23/16 06:31 67 18 117/67 (84) 94 Oxymask 4.0 12/23/16 06:01 65 19 115/67 (83) 95 Oxymask 4.0 12/23/16 05:31 66 18 103/69 (80) 83 Oxymask 4.0 12/23/16 05:02 64 19 121/66 (84) 96 Oxymask 4.0 12/23/16 04:31 67 24 115/58 (77) 95 Oxymask 4.0 12/23/16 04:09 96 Oxymask 4.0 12/23/16 04:01 37.1 65 20 104/58 (73) 94 Oxymask 4.0 12/23/16 03:31 70 18 101/66 (78) 95 Oxymask 4.0 12/23/16 03:01 70 19 106/56 (73) 92 Oxymask 4.0 12/23/16 02:31 70 18 114/57 (76) 91 Oxymask 4.0 12/23/16 02:01 37.2 67 19 108/65 (79) 94 Oxymask 4.0 12/23/16 01:31 67 20 101/58 (72) 93 Oxymask 4.0 12/23/16 01:01 66 18 115/60 (78) 92 Oxymask 4.0 12/23/16 00:31 62 17 106/47 (66) 92 Oxymask 4.0 12/23/16 00:28 94 Oxymask 4.0 12/23/16 00:01 63 16 103/52 (69) 94 Oxymask 4.0 12/22/16 23:31 37.1 80 16 108/50 (69) Oxymask 4.0 12/22/16 23:01 66 17 108/54 (72) 93 Oxymask 4.0 12/22/16 22:31 70 16 112/59 (76) 98 Oxymask 4.0 12/22/16 22:11 70 16 109/72 (84) 97 Oxymask 4.0 12/22/16 21:31 67 17 118/56 (76) 95 Oxymask 4.0 12/22/16 21:01 67 17 114/60 (78) Oxymask 4.0 12/22/16 20:50 66 18 99 Mask 4.0 12/22/16 20:32 63 18 106/57 (73) 98 Oxymask 4.0 12/22/16 20:22 94 Oxymask 4.0 12/22/16 19:09 36.6 67 16 123/61 (81) 94 Oxymask 4.0 12/22/16 17:59 69 16 122/67 96 Mask 12/22/16 16:49 66 16 131/95 12/22/16 16:26 66 18 149/86 99 Nebulizer 12/22/16 16:00 99 Nasal Cannula 3.0 12/22/16 15:51 12 93 Mask 3.0 12/22/16 15:50 68 16 126/69 93 Nebulizer 15.0 12/22/16 15:13 68 16 133/98 91 Nasal Cannula 2.0 12/22/16 14:26 67 14 160/86 97 Nasal Cannula 12/22/16 13:26 65 12/22/16 13:09 62 16 146/76 93 Room Air 12/22/16 13:00 36.5 93 20 98 Room Air Laboratory Results: Last 24 Hours Test 9/3/17 14:40 12/22/16 14:49 12/22/16 14:52 12/22/16 14:53 White Blood Count 17.66 K/uL Red Blood Count 4.63 M/uL Hemoglobin 13.7 g/dL Hematocrit 40.5 % Mean Corpuscular Volume 87.5 fL Mean Corpuscular Hemoglobin 29.6 pg Mean Corpuscular Hemoglobin Concent 33.8 g/dl Platelet Count 149 K/uL Mean Platelet Volume 10.1 fL RDW Standard Deviation 48.3 fL RDW Coefficient of Variation 15.0 % Neutrophils % (Manual) 81.8 % Lymphocytes % (Manual) 1.7 % Variant Lymphocytes % (manual) 3.5 % Monocytes % (Manual) 1.7 % Metamyelocytes % 11.3 % Neutrophils # (Manual) 14.45 K/uL Total Absolute Neutrophils 14.45 K/uL Lymphocytes # (Manual) 0.30 K/uL Absolute Variant Lymphocytes 0.62 K/uL Total Absolute Lymphocytes 0.92 K/uL Monocytes # (Manual) 0.30 K/uL Metamyelocytes # 2.00 K/uL Hyposegmented Neutrophils 1+ Dohle Bodies 1+ Erythrocyte Sedimentation Rate 56 mm/hr Prothrombin Time 28.0 SECONDS Prothromb Time International Ratio 2.5 Sodium Level 135 mmol/L Potassium Level 4.8 mmol/L Chloride Level 101 mmol/L Carbon Dioxide Level 25 mmol/L Anion Gap 9.0 mmol/L 14.0 mmol/L Blood Urea Nitrogen 50 mg/dl Creatinine 2.20 mg/dl Est Creatinine Clear Calc Drug Dose 19.9 ml/min Estimated GFR () 23.1 Estimated GFR (Non- 19.9 BUN/Creatinine Ratio 22.9 Random Glucose 129 mg/dl Calcium Level 9.6 mg/dl Total Bilirubin 0.5 mg/dl Direct Bilirubin 0.1 mg/dl Aspartate Amino Transf (AST/SGOT) 93 U/L Alanine Aminotransferase (ALT/SGPT) 31 U/L Alkaline Phosphatase 98 U/L Total Creatine Kinase 3167 U/L Creatine Kinase MB 48.4 ng/ml Creatine Kinase MB Ratio 1.5 Troponin I 1.970 ng/ml Total Protein 7.3 gm/dl Albumin 3.2 gm/dl Lipase 55 U/L Procalcitonin 17.87 ng/ml Bedside Lactic Acid Venous 2.22 mmol/L Bedside Hemoglobin 14.3 g/dl Bedside Hematocrit 42 % Bedside Sodium 135 mEq/L Bedside Potassium 4.9 mEq/L Bedside Chloride 101 mEq/L Bedside Total CO2 25 mEq/l Bedside Blood Urea Nitrogen 47 mg/dl Bedside Creatinine 2.2 mg/dl Bedside Glucose (other) 132 mg/dl Bedside Ionized Calcium (Sarina) 1.17 mmol/l Test 12/22/16 16:52 12/22/16 17:34 12/22/16 21:11 12/22/16 21:50 Troponin I 1.900 ng/ml C-Reactive Protein 16.90 mg/dl Venous Blood pH 7.36 Venous Blood Partial Pressure CO2 41 mmHg Venous Blood Partial Pressure O2 40 mmHg Venous Blood HCO3 22 mmol/L Venous Blood Oxygen Saturation 71.3 % Venous Blood Base Excess -2.8 mEq/L Lactic Acid Level 1.6 mmol/L Bedside Glucose 145 mg/dl Urine Color DK YELLOW Urine Appearance CLOUDY Urine pH 5.0 Urine Specific [place] 1.024 Urine Protein 2+ Urine Glucose (UA) NEG Urine Ketones NEG Urine Occult Blood 3+ Urine Nitrite NEG Urine Bilirubin NEG Urine Urobilinogen NEG Urine Leukocyte Esterase NEG Urine WBC (Auto) 1-5 /hpf Urine RBC (Auto) 5-10 /hpf Urine Hyaline Casts (Auto) 1-5 /lpf Urine Epithelial Cells (Auto) 0-5 /lpf Urine Bacteria (Auto) NEG Test 12/22/16 23:00 12/23/16 05:37 Troponin I 1.190 ng/ml 0.926 ng/ml White Blood Count 12.69 K/uL Red Blood Count 3.91 M/uL Hemoglobin 11.1 g/dL Hematocrit 35.3 % Mean Corpuscular Volume 90.3 fL Mean Corpuscular Hemoglobin 28.4 pg Mean Corpuscular Hemoglobin Concent 31.4 g/dl Platelet Count 111 K/uL Mean Platelet Volume 9.7 fL Neutrophils (%) (Auto) 84.1 % Lymphocytes (%) (Auto) 6.9 % Monocytes (%) (Auto) 7.9 % Eosinophils (%) (Auto) 0.0 % Basophils (%) (Auto) 0.1 % Neutrophils # (Auto) 10.68 K/uL Lymphocytes # (Auto) 0.87 K/uL Monocytes # (Auto) 1.00 K/uL Eosinophils # (Auto) 0.00 K/uL Basophils # (Auto) 0.01 K/uL RDW Standard Deviation 50.2 fL RDW Coefficient of Variation 15.3 % Immature Granulocyte % (Auto) 1.0 % Immature Granulocyte # (Auto) 0.13 K/uL Prothrombin Time 31.5 SECONDS Prothromb Time International Ratio 2.8 Sodium Level 136 mmol/L Potassium Level 4.2 mmol/L Chloride Level 104 mmol/L Carbon Dioxide Level 25 mmol/L Anion Gap 7.0 mmol/L Blood Urea Nitrogen 47 mg/dl Creatinine 1.90 mg/dl Est Creatinine Clear Calc Drug Dose 23.0 ml/min Estimated GFR () 27.6 Estimated GFR (Non- 23.8 BUN/Creatinine Ratio 24.5 Random Glucose 139 mg/dl Lactic Acid Level 1.2 mmol/L Calcium Level 7.8 mg/dl Phosphorus Level 3.8 mg/dl Magnesium Level 2.1 mg/dl Total Bilirubin 0.8 mg/dl Direct Bilirubin 0.2 mg/dl Aspartate Amino Transf (AST/SGOT) 139 U/L Alanine Aminotransferase (ALT/SGPT) 37 U/L Alkaline Phosphatase 76 U/L Total Protein 5.8 gm/dl Albumin 2.3 gm/dl Random Vancomycin Level 17.4 mcg/ml
[2016-12-23] MEDS: CLOPIDOGREL BISULFATE 75 MG TAB PO SCH (12:50)
[2016-12-23] MEDS: ASPIRIN 81 MG ECTAB PO SCH (12:50)
[2016-12-23] MEDS: OXCARBAZEPINE 150 MG TAB PO SCH ×3 (12:51→20:43)
[2016-12-23] MEDS: GABAPENTIN 600 MG TAB PO SCH ×2 (12:51→20:43)
[2016-12-23 14:30] LABS: HEMATOCRIT 31.9 % (37-47)
--- NOTE | 2016-12-23 15:53 | Progress Note ---
Subjective Date of Service: Dec 23, 2016. Subjective Pt evaluation today including: conversation w/ patient, physical exam, lab review, conversation w/ trial consultant, review of inpatient medication list Pain: right leg quite tender to even slight palpation PO Intake: adequate Voiding: viera catheter in place patient doing better in first 24 hours, off pressor support, vitals improving reviewed lab work, CK up, Cr down to 1.[address] Mercedes in ICU, appreciate recommendations reviewed procedure from ortho, no signs of infected knee joint or prepatellar bursa Problem List Medical Problems: (1) Acute renal failure Status: Acute (2) Cellulitis Status: Acute (3) NSTEMI (non-ST elevated myocardial infarction) Status: Acute (4) Right-sided chest pain Status: Acute (5) Supratherapeutic INR Status: Acute Review of Systems Constitutional: + weakness, + fatigue Musculoskeletal: + joint pain (right knee and right ankle) Skin: + rash All Other Systems: Reviewed and Negative Medications Current Inpatient Medications Medications (Trade) Dose Ordered Sig/Darrick Route Start Time Stop Time Status Last Admin Dose Admin Amlodipine Besylate (Norvasc Tab) 5 mg BID PO 12/22/16 21:00 01/21/17 20:59 Future Hold Clopidogrel Bisulfate (plAVix TAB) 75 mg DAILY PO 12/23/16 09:00 01/22/17 08:59 12/23/16 12:50 75 MG Gabapentin (Neurontin Tab) 600 mg TID PO 12/22/16 21:00 01/21/17 20:59 Future hold 12/23/16 12:51 600 MG Isosorbide Mononitrate (Imdur Ext Rel Tab) 90 mg DAILY PO 12/23/16 09:00 01/22/17 08:59 Future hold Metoprolol Succinate (Toprol Xl Tab) 25 mg DAILY PO 12/23/16 09:00 01/22/17 08:59 Future Hold Multivitamins (Multivitamin Tab) 1 tab DAILY PO 12/23/16 09:00 01/22/17 08:59 Future Hold Oxcarbazepine (Trileptal Tab) 150 mg QID PO 12/22/16 17:00 01/21/17 16:59 Future hold 12/23/16 12:51 150 MG Ranolazine (Ranexa ER Tab) 500 mg BID PO 12/22/16 21:00 01/21/17 20:59 Future Hold Acetaminophen (Tylenol Tab) 650 mg Q4H PRN PO 12/22/16 16:30 01/21/17 16:29 12/23/16 10:30 650 MG Magnesium Hydroxide (Milk Of Magnesia Susp) 30 ml Q12H PRN PO 12/22/16 16:30 01/21/17 16:29 Ondansetron HCl (Zofran Inj) 4 mg Q6H PRN IV 12/22/16 16:30 01/21/17 16:29 Nitroglycerin (Nitrostat Tab) 0.4 mg UD PRN SL 12/22/16 16:30 01/21/17 16:29 Future Hold Polyethylene (Miralax Powder Packet) 17 gm DAILY PRN PO 12/22/16 16:30 01/21/17 16:29 Aspirin (Ecotrin Tab) 81 mg QAM PO 12/23/16 09:00 01/22/17 08:59 12/23/16 12:50 81 MG Albuterol/ Ipratropium (Duoneb) 3 ml Q2HWA PRN INH 12/22/16 17:00 01/21/17 16:59 12/22/16 20:50 3 ML Clindamycin Phosphate 900 mg/ Dextrose 106 ml @ 100 mls/hr Q8H IV 12/23/16 02:00 12/25/16 01:59 12/23/16 10:09 100 MLS/HR Ranitidine HCl 50 mg/Dextrose 102 ml @ 200 mls/hr DAILY@2200 IV 12/22/16 22:00 01/21/17 21:59 12/22/16 22:18 200 MLS/HR Metoprolol Tartrate (Lopressor Iv) 5 mg Q6 PRN IV 12/22/16 19:00 01/21/17 18:59 Vancomycin HCl (Consult) 1 ea UD PRN N/A 12/22/16 19:51 01/21/17 19:50 Parenteral Electrolyte Solution 1,000 ml @ 125 mls/hr Q8H IV 12/22/16 19:15 01/21/17 19:14 12/23/16 07:51 125 MLS/HR Piperacillin Sod/ Tazobactam Sod (Consult) 1 ea UD PRN N/A 12/22/16 20:00 01/21/17 19:59 Piperacillin Sod/ Tazobactam Sod 4.5 gm/Dextrose 120 ml @ 30 mls/hr Q8H IV 12/23/16 00:00 01/01/17 00:00 12/23/16 07:50 30 MLS/HR Heparin Sodium (Porcine) (Heparin 10 Unit/ ml 5 ml Flush) 5 ml PRN PRN FLUSH 12/22/16 23:45 01/21/17 23:44 Vancomycin HCl 1000 mg/Sodium Chloride 270 ml @ 125 mls/hr Q12@0900,2100 IV 12/23/16 09:00 01/02/17 08:59 12/23/16 10:09 125 MLS/HR Warfarin Sodium (Coumadin Tab) 5 mg DAILY@1600 PO 12/24/16 16:00 01/23/17 15:59 Objective Vital Signs Date Time Temp Pulse Resp B/P (MAP) Pulse Ox O2 Delivery O2 Flow Rate FiO2 12/23/16 14:01 62 18 116/65 (82) 94 Nasal Cannula 2.0 12/23/16 13:01 65 24 108/73 (85) 93 Nasal Cannula 2.0 12/23/16 12:01 36.9 65 18 117/69 (85) 92 Nasal Cannula 2.0 12/23/16 12:00 Nasal Cannula 2.0 12/23/16 11:02 70 19 117/78 (91) 93 Nasal Cannula 2.0 12/23/16 10:01 74 25 125/68 (87) 86 Room Air 12/23/16 09:02 66 18 115/73 (87) 95 Oxymask 2.0 12/23/16 08:02 36.9 69 16 130/84 (99) 93 Oxymask 2.0 12/23/16 08:00 Oxymask 2.0 12/23/16 06:31 67 18 117/67 (84) 94 Oxymask 4.0 12/23/16 06:01 65 19 115/67 (83) 95 Oxymask 4.0 12/23/16 05:31 66 18 103/69 (80) 83 Oxymask 4.0 12/23/16 05:02 64 19 121/66 (84) 96 Oxymask 4.0 12/23/16 04:31 67 24 115/58 (77) 95 Oxymask 4.0 12/23/16 04:09 96 Oxymask 4.0 12/23/16 04:01 37.1 65 20 104/58 (73) 94 Oxymask 4.0 12/23/16 03:31 70 18 101/66 (78) 95 Oxymask 4.0 12/23/16 03:01 70 19 106/56 (73) 92 Oxymask 4.0 12/23/16 02:31 70 18 114/57 (76) 91 Oxymask 4.0 12/23/16 02:01 37.2 67 19 108/65 (79) 94 Oxymask 4.0 12/23/16 01:31 67 20 101/58 (72) 93 Oxymask 4.0 12/23/16 01:01 66 18 115/60 (78) 92 Oxymask 4.0 12/23/16 00:31 62 17 106/47 (66) 92 Oxymask 4.0 12/23/16 00:28 94 Oxymask 4.0 12/23/16 00:01 63 16 103/52 (69) 94 Oxymask 4.0 12/22/16 23:31 37.1 80 16 108/50 (69) Oxymask 4.0 12/22/16 23:01 66 17 108/54 (72) 93 Oxymask 4.0 12/22/16 22:31 70 16 112/59 (76) 98 Oxymask 4.0 12/22/16 22:11 70 16 109/72 (84) 97 Oxymask 4.0 12/22/16 21:31 67 17 118/56 (76) 95 Oxymask 4.0 12/22/16 21:01 67 17 114/60 (78) Oxymask 4.0 12/22/16 20:50 66 18 99 Mask 4.0 12/22/16 20:32 63 18 106/57 (73) 98 Oxymask 4.0 12/22/16 20:22 94 Oxymask 4.0 12/22/16 19:09 36.6 67 16 123/61 (81) 94 Oxymask 4.0 12/22/16 17:59 69 16 122/67 96 Mask 12/22/16 16:49 66 16 131/95 12/22/16 16:26 66 18 149/86 99 Nebulizer 12/22/16 16:00 99 Nasal Cannula 3.0 12/22/16 15:51 12 93 Mask 3.0 12/22/16 15:50 68 16 126/69 93 Nebulizer 15.0 Physical Exam General Appearance: WD/WN, no apparent distress Eyes: normal inspection, EOMI, sclerae normal Neck: supple, no adenopathy, no JVD, trachea midline Respiratory/Chest: chest non-tender, lungs clear, normal breath sounds, no respiratory distress, no accessory muscle use Cardiovascular: regular rate, rhythm, no edema, no gallop, no JVD, no murmur Abdomen: normal bowel sounds, non tender, soft, no organomegaly Extremities: normal range of motion, non-tender, normal inspection, no calf tenderness, + pedal edema (right leg) 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, no motor/sensory deficits, alert, normal mood/affect, oriented x 3 Skin: + rash (erythema right lower leg distal to knee) Laboratory Results Last 24 Hours Test 12/22/16 16:52 12/22/16 17:34 12/22/16 21:11 12/22/16 21:50 Troponin I 1.900 ng/ml C-Reactive Protein 16.90 mg/dl Venous Blood pH 7.36 Venous Blood Partial Pressure CO2 41 mmHg Venous Blood Partial Pressure O2 40 mmHg Venous Blood HCO3 22 mmol/L Venous Blood Oxygen Saturation 71.3 % Venous Blood Base Excess -2.8 mEq/L Lactic Acid Level 1.6 mmol/L Bedside Glucose 145 mg/dl Urine Color DK YELLOW Urine Appearance CLOUDY Urine pH 5.0 Urine Specific [place] 1.024 Urine Protein 2+ Urine Glucose (UA) NEG Urine Ketones NEG Urine Occult Blood 3+ Urine Nitrite NEG Urine Bilirubin NEG Urine Urobilinogen NEG Urine Leukocyte Esterase NEG Urine WBC (Auto) 1-5 /hpf Urine RBC (Auto) 5-10 /hpf Urine Hyaline Casts (Auto) 1-5 /lpf Urine Epithelial Cells (Auto) 0-5 /lpf Urine Bacteria (Auto) NEG Test 12/22/16 23:00 12/23/16 05:37 12/23/16 11:20 12/23/16 14:16 Troponin I 1.190 ng/ml 0.926 ng/ml 0.665 ng/ml White Blood Count 12.69 K/uL Red Blood Count 3.91 M/uL Hemoglobin 11.1 g/dL 10.1 g/dL Hematocrit 35.3 % 31.9 % Mean Corpuscular Volume 90.3 fL Mean Corpuscular Hemoglobin 28.4 pg Mean Corpuscular Hemoglobin Concent 31.4 g/dl Platelet Count 111 K/uL Mean Platelet Volume 9.7 fL Neutrophils (%) (Auto) 84.1 % Lymphocytes (%) (Auto) 6.9 % Monocytes (%) (Auto) 7.9 % Eosinophils (%) (Auto) 0.0 % Basophils (%) (Auto) 0.1 % Neutrophils # (Auto) 10.68 K/uL Lymphocytes # (Auto) 0.87 K/uL Monocytes # (Auto) 1.00 K/uL Eosinophils # (Auto) 0.00 K/uL Basophils # (Auto) 0.01 K/uL RDW Standard Deviation 50.2 fL RDW Coefficient of Variation 15.3 % Immature Granulocyte % (Auto) 1.0 % Immature Granulocyte # (Auto) 0.13 K/uL Prothrombin Time 31.5 SECONDS Prothromb Time International Ratio 2.8 Sodium Level 136 mmol/L Potassium Level 4.2 mmol/L Chloride Level 104 mmol/L Carbon Dioxide Level 25 mmol/L Anion Gap 7.0 mmol/L Blood Urea Nitrogen 47 mg/dl Creatinine 1.90 mg/dl Est Creatinine Clear Calc Drug Dose 23.0 ml/min Estimated GFR () 27.6 Estimated GFR (Non- 23.8 BUN/Creatinine Ratio 24.5 Random Glucose 139 mg/dl Lactic Acid Level 1.2 mmol/L Calcium Level 7.8 mg/dl Phosphorus Level 3.8 mg/dl Magnesium Level 2.1 mg/dl Total Bilirubin 0.8 mg/dl Direct Bilirubin 0.2 mg/dl Aspartate Amino Transf (AST/SGOT) 139 U/L Alanine Aminotransferase (ALT/SGPT) 37 U/L Alkaline Phosphatase 76 U/L Total Creatine Kinase 4198 U/L Total Protein 5.8 gm/dl Albumin 2.3 gm/dl Random Vancomycin Level 17.4 mcg/ml Bedside Glucose 187 mg/dl Assessment and Plan - Sepsis from right lower extremity cellulitis no signs of shock, BP preserved, HR in 60's continue Vanco, Zosyn and Clindamycin, leg improving no signs of joint involvement on joint aspiration chronic DVT - Elevated CK: mild rhabdomyolysis, non traumatic follow CK levels no signs of compartment syndrome currently, monitor closely - MARTÍN on CKD stage III: Cr down to 1.9, adequate UO, continue fluids, hold nephrotoxins - AAA: quite large at 6cm, ICU discussed results with patient, no intervention at this time - DVT/PE with h/o IVC filter: continue Coumadin for now - CAD with elevated troponin: due to MARTÍN, no chest pain, no EKG changes (paced) continue aspirin and Plavix keep in ICU tonight
[2016-12-23] MEDS ORDERED: WARFARIN SOD 3 MG TAB PO SCH (16:00)
[2016-12-23] MEDS: NITROGLYCERIN 0.4 MG SL PER TAB CHARGE SL PRN (17:57)
[2016-12-23] MEDS: ISOSORBIDE MONONITRATE 30 MG TABCR PO SCH (18:09)
[2016-12-23] MEDS: METOPROLOL SUCC 25MG EXT REL TAB PO SCH (18:23)
[2016-12-23] MEDS: RANITIDINE IV 50 MG in DEXTROSE 5% 100ML 100 ML IV SCH (21:47)
[2016-12-23 22:07] LABS: HEMATOCRIT 30.8 % (37-47)
[2016-12-24] VITALS (21 sets, daily range): BP systolic 99–136; BP diastolic 59–90; PULSE 69–99; TEMP 36.6–36.9; O2SAT 91–96
[2016-12-24] MEDS: PIPERACILL/TAZOBAC IV 4.5 GM in DEXTROSE 5% 100ML IV SCH ×4 (00:55→23:34)
[2016-12-24] MEDS: CLINDAMYCIN IV 900 MG in DEXTROSE 5% 100ML 100 ML IV SCH ×3 (02:33→17:00)
[2016-12-24] MEDS: ACETAMINOPHEN 325 MG TAB PO PRN ×3 (04:02→23:35)
[2016-12-24 05:48] LABS: COMPLETE YES; EOS % 0.5 %; HEMATOCRIT 30.3 % (37-47); IG% 0.3 %; LYMPH % 7.4 %; LYMPH ABS # 0.72 K/uL (1.2-3.4); MEAN CELL VOLUME 89.4 fL (80-100); MEAN CORPUSCULAR HEMOGLOBIN 27.4 pg (25-34); MEAN CORPUSCULAR HGB CONC 30.7 g/dl (32-36); MEAN PLATELET VOLUME 10.6 fL (7.4-10.4); MONO % 7.3 %; NEUT % 84.5 %; PLATELET COUNT 104 K/uL (130-400); RED BLOOD COUNT 3.39 M/uL (4.2-5.4)
[2016-12-24 06:01] LABS: INR 2.2 (0.9-1.1); PROTHROMBIN TIME (PATIENT) 23.9 SECONDS (9.0-12.0)
[2016-12-24 06:29] LABS: CALCIUM 7.7 mg/dl (8.5-10.1); CREATININE 1.3 mg/dl (0.60-1.20); MAGNESIUM 2.3 mg/dl (1.8-2.4); PHOSPHORUS 1.9 mg/dl (2.5-4.9); POTASSIUM 3.5 mmol/L (3.5-5.1)
[2016-12-24] MEDS ORDERED: POTASSIUM PHOS 3 MMOL/1 ML INFUSION IV STA (07:59)
[2016-12-24] MEDS: NORMOSOL R 1,000 ML IV SCH (08:14)
[2016-12-24] MEDS ORDERED: VANCOMYCIN TROUGH SCH (08:30)
[2016-12-24] MEDS: CLOPIDOGREL BISULFATE 75 MG TAB PO SCH (08:35)
[2016-12-24] MEDS: GABAPENTIN 600 MG TAB PO SCH ×3 (08:35→20:44)
[2016-12-24] MEDS: ASPIRIN 81 MG ECTAB PO SCH (08:35)
[2016-12-24] MEDS: METOPROLOL SUCC 25MG EXT REL TAB PO SCH (08:35)
[2016-12-24] MEDS: OXCARBAZEPINE 150 MG TAB PO SCH ×4 (08:36→20:45)
--- NOTE | 2016-12-24 08:49 | Pharmacy Progress Note ---
Pharmacy Abx Dose Progress Nt Date of Service Dec 24, 2016. Pharmacy Dosing Scope The patient is currently receiving the following antimicrobial agents per Pharmacy consult: vancomycin 1000 mg IV every 12 hours, zosyn 4.5 gm every 8 hours Objective Height (Feet): 5 Height (Inches): 2.00 Weight (Kilograms): 92.500 Vital Signs (Past 12Hrs) Vital Signs Past 12 Hours Date Time Temp Pulse Resp B/P (MAP) Pulse Ox O2 Delivery O2 Flow Rate FiO2 12/24/16 05:01 69 22 117/67 (84) 91 Nasal Cannula 2.0 12/24/16 04:03 95 Nasal Cannula 2.0 12/24/16 04:01 71 26 111/59 (76) Nasal Cannula 2.0 12/24/16 03:01 71 22 112/66 (81) 93 Nasal Cannula 2.0 12/24/16 02:01 69 23 122/62 (82) 93 Nasal Cannula 2.0 12/24/16 01:01 71 26 116/61 (79) 94 Nasal Cannula 2.0 12/24/16 00:04 95 Nasal Cannula 2.0 12/24/16 00:02 69 25 121/65 (83) 93 Nasal Cannula 2.0 12/23/16 23:01 67 23 96/57 (70) 95 Nasal Cannula 2.0 12/23/16 22:02 69 24 105/63 (77) 95 Nasal Cannula 2.0 12/23/16 21:01 71 23 99/61 (74) 95 Nasal Cannula 2.0 Lab Results (24Hrs) Laboratory Tests (24 Hours) Test 12/24/16 05:19 White Blood Count 9.70 K/uL (4.8-10.8) Red Blood Count 3.39 M/uL (4.2-5.4) L Hemoglobin 9.3 g/dL (12.0-16.0) L Hematocrit 30.3 % (37-47) L Mean Corpuscular Volume 89.4 fL (80-100) Mean Corpuscular Hemoglobin 27.4 pg (25-34) Mean Corpuscular Hemoglobin Concent 30.7 g/dl (32-36) L Platelet Count 104 K/uL (130-400) L Mean Platelet Volume 10.6 fL (7.4-10.4) H Neutrophils (%) (Auto) 84.5 % Lymphocytes (%) (Auto) 7.4 % Monocytes (%) (Auto) 7.3 % Eosinophils (%) (Auto) 0.5 % Basophils (%) (Auto) 0.0 % Neutrophils # (Auto) 8.19 K/uL (1.4-6.5) H Lymphocytes # (Auto) 0.72 K/uL (1.2-3.4) L Monocytes # (Auto) 0.71 K/uL (0.11-0.59) H Eosinophils # (Auto) 0.05 K/uL (0-0.5) Basophils # (Auto) 0.00 K/uL (0-0.2) Micro Results Date/Time Source Procedure Growth Status 12/22/16 14:54 Blood Blood Culture - Preliminary Coag Neg Staph Not [place]ensis Resulted 12/22/16 14:40 Blood Blood Culture - Preliminary NO GROWTH TO DATE. Resulted 12/22/16 19:15 Nasal MRSA DNA Surveillance Screen - Final Specimen Negative for MRSA by DNA Probe Complete 12/22/16 21:50 Urine , Clean Catch Urine Culture - Preliminary NO GROWTH - LESS THAN 1,000 COLONIES/... Resulted 12/22/16 18:16 Fine Needle Aspirate Knee Right Gram Stain - Final Resulted 12/22/16 18:16 Fine Needle Aspirate Knee Right Wound Culture - Preliminary NO GROWTH TO DATE. Resulted 12/22/16 18:16 Incision Site Knee Right Gram Stain - Final Resulted 12/22/16 18:16 Wound Culture - Preliminary Staphylococcus Aureus Beta Haemolytic Strep. Species Resulted Assessment & Plan Assessment 86 year old female receiving vancomycin, clindamycin, zosyn for treatment of sepsis secondary to cellulitis Day # 3 of antimicrobial therapy Plan Vancomycin IV * Trough level of 19.7 mcg/mL is therapeutic, however, trough was drawn ~ 3.4 hours early * Will continue current dose of 1000 mg q12H dosing for now- improved renal function but risk for accumulation * Goal trough level : 15-20 mcg/mL * Trough level ordered for 12/25 @ 0830 * Less than traditional dose and/or extended dosing interval selected due to likelihood of drug accumulation in obese patient/CKD. Piperacillin/tazobactam * Continue 4.5 g IV extended infusion every 8 hours for CrCl greater than 20 mL/ min Pharmacy will continue to follow and will adjust dose/frequency as necessary. Thank you.
[2016-12-24] MEDS ORDERED: POTASSIUM PHOSPHATE INJ 15 MMOL in SODIUM CHLORIDE 0.9% 250ML 250 ML IV SCH (09:00)
[2016-12-24] MEDS: ISOSORBIDE MONONITRATE 30 MG TABCR PO SCH (09:17)
[2016-12-24] MEDS: MULTIVITAMIN TAB PO SCH (09:17)
[2016-12-24] MEDS: VANCOMYCIN INJ 1,000 MG in SODIUM CHLORIDE 0.9% 250ML 250 ML IV SCH ×2 (11:11→20:44)
[2016-12-24] MEDS: RANITIDINE HCL 150 MG TAB PO SCH (11:11)
--- NOTE | 2016-12-24 14:16 | Medical Student: [facility] ---
Med Student Progress Note Date of Service Dec 24, 2016. Subjective Pt evaluation today including: conversation w/ patient, conversation w/ family , physical exam, chart review, lab review, review of studies Pain: 3/10 in right lower extremity Voiding: viera catheter in place Ms. Paige Ely is an 86 year old woman with PMH significant for PE, CAD, DVT, chronic superficial femoral thrombus & chronic anticoagulation on Coumadin who presented to the ED with complaints of right lower extremity pain and swelling along with SOB and confusion/disorientation on 12/22/16. Hospital Day #2: No acute events overnight. She reports that she feels improved overall and her pain has come down to 3/10. She has not required pressor support. Her vitals are improving, normotensive and not tachycardic. She is currently at 91% on 2L NC. Review of Systems Constitutional: + weakness, + fatigue (40% of her usual energy ), No fever, No chills, No weight loss Eyes: No worsening of vision, No redness ENT: No nasal symptoms, No sore throat Respiratory: No cough, No shortness of breath Cardiac: No chest pain, No palpitations Abdomen: No pain, No nausea, No vomiting, No diarrhea, No constipation Musculoskeletal: No muscle pain, No calf pain Female : No dysuria, No hematuria Neurologic: No weakness, No numbness/tingling Psychiatric: No depression symptoms, No anxiety Heme: No abnormal bleeding/bruising, No clotting problems Endo: No excessive thirst, No excessive urination Skin: + new/changing skin lesions (improving reddness of right lower extremity ), + problem reported, No rash, No itch Objective Vital Signs Date Time Temp Pulse Resp B/P (MAP) Pulse Ox O2 Delivery O2 Flow Rate FiO2 12/24/16 13:38 36.8 88 17 99/65 (76) 93 Room Air 12/24/16 12:17 Nasal Cannula 12/24/16 12:01 36.7 96 21 112/75 (87) 95 Nasal Cannula 1.0 12/24/16 12:00 Nasal Cannula 1.0 12/24/16 11:04 36.6 73 21 93 1.0 12/24/16 11:01 78 19 113/74 (87) 12/24/16 10:01 73 21 120/76 (91) 93 Nasal Cannula 1.0 12/24/16 09:01 75 20 117/66 (83) 96 Nasal Cannula 2.0 12/24/16 08:01 36.6 99 22 100/74 (83) 93 Nasal Cannula 2.0 12/24/16 08:00 Nasal Cannula 2.0 12/24/16 07:01 98 20 110/90 (97) 94 Nasal Cannula 2.0 12/24/16 05:01 69 22 117/67 (84) 91 Nasal Cannula 2.0 12/24/16 04:03 95 Nasal Cannula 2.0 12/24/16 04:01 71 26 111/59 (76) Nasal Cannula 2.0 12/24/16 03:01 71 22 112/66 (81) 93 Nasal Cannula 2.0 12/24/16 02:01 69 23 122/62 (82) 93 Nasal Cannula 2.0 12/24/16 01:01 71 26 116/61 (79) 94 Nasal Cannula 2.0 12/24/16 00:04 95 Nasal Cannula 2.0 12/24/16 00:02 69 25 121/65 (83) 93 Nasal Cannula 2.0 12/23/16 23:01 67 23 96/57 (70) 95 Nasal Cannula 2.0 12/23/16 22:02 69 24 105/63 (77) 95 Nasal Cannula 2.0 12/23/16 21:01 71 23 99/61 (74) 95 Nasal Cannula 2.0 12/23/16 20:05 95 Nasal Cannula 2.0 12/23/16 20:01 36.8 71 25 103/66 (78) 92 Nasal Cannula 2.0 12/23/16 19:56 70 28 108/59 (75) 95 Nasal Cannula 2.0 12/23/16 19:01 95 29 107/67 (80) 94 Nasal Cannula 2.0 12/23/16 18:01 92 22 108/69 (82) 90 Nasal Cannula 2.0 12/23/16 17:53 90 18 123/69 (87) 94 Nasal Cannula 2.0 12/23/16 17:02 88 24 104/91 (95) 95 Nasal Cannula 2.0 12/23/16 16:02 36.5 88 19 124/80 (95) 98 Nasal Cannula 2.0 12/23/16 16:00 Nasal Cannula 2.0 12/23/16 15:01 60 20 114/67 (83) 94 Nasal Cannula 2.0 12/23/16 14:01 62 18 116/65 (82) 94 Nasal Cannula 2.0 Physical Exam General Appearance: WD/WN, no apparent distress ENT: normal ENT inspection, hearing grossly normal Neck: supple, no adenopathy, thyroid normal, trachea midline Respiratory/Chest: chest non-tender, lungs clear, normal breath sounds, no respiratory distress Cardiovascular: regular rate, rhythm, no edema, + systolic murmur (3/6 at right upper sternal border ) Abdomen: normal bowel sounds, non tender, soft Extremities: normal range of motion, normal inspection, + pedal edema (of right lower extremity to level of knee ) Neurologic/Psychiatric: no motor/sensory deficits, alert, normal mood/affect, oriented x 3 Skin: + pertinent finding (warm, erythematous right lower extremity to level of knee, black marking deliniating cellutitis, healing wound at kneecap from recent fall) Lymphatic: no adenopathy Laboratory Results Last 24 Hours Test 12/23/16 14:16 12/23/16 15:49 12/23/16 21:57 12/24/16 05:19 Hemoglobin 10.1 g/dL 10.0 g/dL 9.3 g/dL Hematocrit 31.9 % 30.8 % 30.3 % Troponin I 0.665 ng/ml Bedside Glucose 123 mg/dl White Blood Count 9.70 K/uL Red Blood Count 3.39 M/uL Mean Corpuscular Volume 89.4 fL Mean Corpuscular Hemoglobin 27.4 pg Mean Corpuscular Hemoglobin Concent 30.7 g/dl Platelet Count 104 K/uL Mean Platelet Volume 10.6 fL Neutrophils (%) (Auto) 84.5 % Lymphocytes (%) (Auto) 7.4 % Monocytes (%) (Auto) 7.3 % Eosinophils (%) (Auto) 0.5 % Basophils (%) (Auto) 0.0 % Neutrophils # (Auto) 8.19 K/uL Lymphocytes # (Auto) 0.72 K/uL Monocytes # (Auto) 0.71 K/uL Eosinophils # (Auto) 0.05 K/uL Basophils # (Auto) 0.00 K/uL RDW Standard Deviation 48.6 fL RDW Coefficient of Variation 14.8 % Immature Granulocyte % (Auto) 0.3 % Immature Granulocyte # (Auto) 0.03 K/uL Prothrombin Time 23.9 SECONDS Prothromb Time International Ratio 2.2 Sodium Level 138 mmol/L Potassium Level 3.5 mmol/L Chloride Level 106 mmol/L Carbon Dioxide Level 27 mmol/L Anion Gap 5.0 mmol/L Blood Urea Nitrogen 27 mg/dl Creatinine 1.30 mg/dl Est Creatinine Clear Calc Drug Dose 33.2 ml/min Estimated GFR () 43.6 Estimated GFR (Non- 37.6 BUN/Creatinine Ratio 21.0 Random Glucose 124 mg/dl Calcium Level 7.7 mg/dl Phosphorus Level 1.9 mg/dl Magnesium Level 2.3 mg/dl Vancomycin Level Trough 19.7 mcg/ml Medications Current Inpatient Medications Medications (Trade) Dose Ordered Sig/Darrick Route Start Time Stop Time Status Last Admin Dose Admin Amlodipine Besylate (Norvasc Tab) 5 mg BID PO 12/22/16 21:00 01/21/17 20:59 Future Hold Clopidogrel Bisulfate (plAVix TAB) 75 mg DAILY PO 12/23/16 09:00 01/22/17 08:59 12/24/16 08:35 75 MG Gabapentin (Neurontin Tab) 600 mg TID PO 12/22/16 21:00 01/21/17 20:59 Future hold 12/24/16 08:35 600 MG Isosorbide Mononitrate (Imdur Ext Rel Tab) 90 mg DAILY PO 12/23/16 09:00 01/22/17 08:59 Future hold 12/24/16 09:17 90 MG Metoprolol Succinate (Toprol Xl Tab) 25 mg DAILY PO 12/23/16 09:00 01/22/17 08:59 Future hold 12/24/16 08:35 25 MG Multivitamins (Multivitamin Tab) 1 tab DAILY PO 12/23/16 09:00 01/22/17 08:59 Future hold 12/24/16 09:17 1 TAB Oxcarbazepine (Trileptal Tab) 150 mg QID PO 12/22/16 17:00 01/21/17 16:59 Future hold 12/24/16 11:12 150 MG Ranolazine (Ranexa ER Tab) 500 mg BID PO 12/22/16 21:00 01/21/17 20:59 Future hold Acetaminophen (Tylenol Tab) 650 mg Q4H PRN PO 12/22/16 16:30 01/21/17 16:29 12/24/16 13:35 650 MG Magnesium Hydroxide (Milk Of Magnesia Susp) 30 ml Q12H PRN PO 12/22/16 16:30 01/21/17 16:29 Ondansetron HCl (Zofran Inj) 4 mg Q6H PRN IV 12/22/16 16:30 01/21/17 16:29 Nitroglycerin (Nitrostat Tab) 0.4 mg UD PRN SL 12/22/16 16:30 01/21/17 16:29 Future hold 12/23/16 17:57 0.4 MG Polyethylene (Miralax Powder Packet) 17 gm DAILY PRN PO 12/22/16 16:30 01/21/17 16:29 Aspirin (Ecotrin Tab) 81 mg QAM PO 12/23/16 09:00 01/22/17 08:59 12/24/16 08:35 81 MG Albuterol/ Ipratropium (Duoneb) 3 ml Q2HWA PRN INH 12/22/16 17:00 01/21/17 16:59 12/22/16 20:50 3 ML Clindamycin Phosphate 900 mg/ Dextrose 106 ml @ 100 mls/hr Q8H IV 12/23/16 02:00 12/25/16 01:59 12/24/16 11:10 100 MLS/HR Metoprolol Tartrate (Lopressor Iv) 5 mg Q6 PRN IV 12/22/16 19:00 01/21/17 18:59 Vancomycin HCl (Consult) 1 ea UD PRN N/A 12/22/16 19:51 01/21/17 19:50 Piperacillin Sod/ Tazobactam Sod (Consult) 1 ea UD PRN N/A 12/22/16 20:00 01/21/17 19:59 Piperacillin Sod/ Tazobactam Sod 4.5 gm/Dextrose 120 ml @ 30 mls/hr Q8H IV 12/23/16 00:00 01/01/17 00:00 12/24/16 08:14 30 MLS/HR Heparin Sodium (Porcine) (Heparin 10 Unit/ ml 5 ml Flush) 5 ml PRN PRN FLUSH 12/22/16 23:45 01/21/17 23:44 Vancomycin HCl 1000 mg/Sodium Chloride 270 ml @ 125 mls/hr Q12@0900,2100 IV 12/23/16 09:00 01/02/17 08:59 12/24/16 11:11 125 MLS/HR Warfarin Sodium (Coumadin Tab) 5 mg DAILY@1600 PO 12/24/16 16:00 01/23/17 15:59 Potassium Phosphate 15 mmol/ Sodium Chloride 255 ml @ 88 mls/hr TODAY@0900 IV 12/24/16 09:00 12/24/16 14:00 12/24/16 09:18 88 MLS/HR Ranitidine HCl (zANTac TAB) 150 mg DAILY PO 12/24/16 10:00 01/23/17 09:59 12/24/16 11:11 [address] A/P IMPRESSION: 1. Progressive enlargement of the infrarenal abdominal aortic aneurysm now measuring 6.2 x 6.1 cm, previously measuring 5.1 x 5.1 cm when measured in a similar fashion on study dated 01/12/2014. No evidence of aneurysm rupture. This could be further evaluated with a CT angiogram. 2. Mild nonspecific periaortic, pericaval, right iliac chain and inguinal adenopathy with moderate inflammatory stranding surrounding the right external iliac and common femoral vasculature. Inflammatory changes may be related to patient's known deep venous thrombosis as seen on comparison duplex study 12/22/2016. No large retroperitoneal hematoma identified. 3. Trace bilateral pleural effusions with subsegmental bibasilar consolidation suggesting atelectasis or pneumonia. 4. Moderate right parastomal hernia with additional fat filled supraumbilical ventral abdominal wall hernias noted as above. Electronically signed by: Giancarlo Desai M.D. 12/23/2016 10:24 AM Dictated Date/Time: 12/23/2016 10:01 AM ANKLE XRAY IMPRESSION: 1. Moderate degenerative changes of the midfoot and hindfoot without acute fracture or dislocation. 2. Persistent extensive soft tissue swelling about the right lower extremity appears stable from comparison. Differential considerations would include cellulitis, lymphedema or venous stasis. 3. Peripheral vascular disease. The above report was generated using voice recognition software. It may contain grammatical, syntax or spelling errors. Electronically signed by: Giancarlo Desai M.D. 12/23/2016 10:34 AM Dictated Date/Time: 12/23/2016 10:31 AM EKG Normal sinus rhythm Right bundle branch block Left anterior fascicular block Bifascicular block Septal infarct , age undetermined Lateral infarct , age undetermined Abnormal ECG When compared with ECG of 22-DEC-2016 15:01, Sinus rhythm has replaced Electronic ventricular pacemaker Assessment and Plan Assessment and Plan: ASSESSMENT: Ms. Paige Ely is an 86 year old woman with PMH significant for PE, CAD, DVT, chronic superficial femoral thrombus & chronic anticoagulation on Coumadin who presented to the ED with complaints of right lower extremity pain and swelling along with SOB and confusion/disorientation on 12/22/16. Her cellulitis is responding appropriately to triple antibiotic therapy. She is stable to be moved from the ICU to the medical floor. PLAN: Sepsis from right lower extremity cellulitis No signs of shock, BP preserved, HR in 60's Continue Vanco and Clindamycin, leg improving Discontinue IV Zosyn No signs of joint involvement on joint aspiration chronic DVT No signs of infected knee joint or prepatellar bursa Elevated CK: mild rhabdomyolysis, non traumatic follow CK levels No signs of compartment syndrome currently, monitor closely MARTÍN on CKD stage III Cr down to 1.9, adequate UO, continue fluids, hold nephrotoxins AAA, 6cm No intervention at this time DVT/PE with h/o IVC filter: Continue Coumadin CAD with elevated troponin due to MARTÍN, no chest pain, no EKG changes (paced) Continue home aspirin Continue Plavix
--- NOTE | 2016-12-24 15:30 | Progress Note ---
Subjective Date of Service: Dec 24, 2016. Subjective Pt evaluation today including: conversation w/ patient, conversation w/ family (daughter), physical exam, lab review, conversation w/ it support consultant, review of inpatient medication list Pain: less right leg pain today PO Intake: adequate Voiding: viera catheter in place patient doing better today, actually smiling, less pain and tenderness of right leg discussed with Dr. Mercedes, clear to leave ICU reviewed lab work, WBC down, Cr trending down H/H and platelets down slightly Problem List Medical Problems: (1) Acute renal failure Status: Acute (2) Cellulitis Status: Acute (3) NSTEMI (non-ST elevated myocardial infarction) Status: Acute (4) Right-sided chest pain Status: Acute (5) Supratherapeutic INR Status: Acute Review of Systems Constitutional: + weakness, + fatigue Skin: + rash (right leg erythema) All Other Systems: Reviewed and Negative Medications Current Inpatient Medications Medications (Trade) Dose Ordered Sig/Darrick Route Start Time Stop Time Status Last Admin Dose Admin Amlodipine Besylate (Norvasc Tab) 5 mg BID PO 12/22/16 21:00 01/21/17 20:59 Future Hold Clopidogrel Bisulfate (plAVix TAB) 75 mg DAILY PO 12/23/16 09:00 01/22/17 08:59 12/24/16 08:35 75 MG Gabapentin (Neurontin Tab) 600 mg TID PO 12/22/16 21:00 01/21/17 20:59 Future hold 12/24/16 14:46 600 MG Isosorbide Mononitrate (Imdur Ext Rel Tab) 90 mg DAILY PO 12/23/16 09:00 01/22/17 08:59 Future hold 12/24/16 09:17 90 MG Metoprolol Succinate (Toprol Xl Tab) 25 mg DAILY PO 12/23/16 09:00 01/22/17 08:59 Future hold 12/24/16 08:35 25 MG Multivitamins (Multivitamin Tab) 1 tab DAILY PO 12/23/16 09:00 01/22/17 08:59 Future hold 12/24/16 09:17 1 TAB Oxcarbazepine (Trileptal Tab) 150 mg QID PO 12/22/16 17:00 01/21/17 16:59 Future hold 12/24/16 11:12 150 MG Ranolazine (Ranexa ER Tab) 500 mg BID PO 12/22/16 21:00 01/21/17 20:59 Future hold Acetaminophen (Tylenol Tab) 650 mg Q4H PRN PO 12/22/16 16:30 01/21/17 16:29 12/24/16 13:35 650 MG Magnesium Hydroxide (Milk Of Magnesia Susp) 30 ml Q12H PRN PO 12/22/16 16:30 01/21/17 16:29 Ondansetron HCl (Zofran Inj) 4 mg Q6H PRN IV 12/22/16 16:30 01/21/17 16:29 Nitroglycerin (Nitrostat Tab) 0.4 mg UD PRN SL 12/22/16 16:30 01/21/17 16:29 Future hold 12/23/16 17:57 0.4 MG Polyethylene (Miralax Powder Packet) 17 gm DAILY PRN PO 12/22/16 16:30 01/21/17 16:29 Aspirin (Ecotrin Tab) 81 mg QAM PO 12/23/16 09:00 01/22/17 08:59 12/24/16 08:35 81 MG Albuterol/ Ipratropium (Duoneb) 3 ml Q2HWA PRN INH 12/22/16 17:00 01/21/17 16:59 12/22/16 20:50 3 ML Clindamycin Phosphate 900 mg/ Dextrose 106 ml @ 100 mls/hr Q8H IV 12/23/16 02:00 12/25/16 01:59 12/24/16 11:10 100 MLS/HR Metoprolol Tartrate (Lopressor Iv) 5 mg Q6 PRN IV 12/22/16 19:00 01/21/17 18:59 Vancomycin HCl (Consult) 1 ea UD PRN N/A 12/22/16 19:51 01/21/17 19:50 Piperacillin Sod/ Tazobactam Sod (Consult) 1 ea UD PRN N/A 12/22/16 20:00 01/21/17 19:59 Piperacillin Sod/ Tazobactam Sod 4.5 gm/Dextrose 120 ml @ 30 mls/hr Q8H IV 12/23/16 00:00 01/01/17 00:00 12/24/16 08:14 30 MLS/HR Heparin Sodium (Porcine) (Heparin 10 Unit/ ml 5 ml Flush) 5 ml PRN PRN FLUSH 12/22/16 23:45 01/21/17 23:44 Vancomycin HCl 1000 mg/Sodium Chloride 270 ml @ 125 mls/hr Q12@0900,2100 IV 12/23/16 09:00 01/02/17 08:59 12/24/16 11:11 125 MLS/HR Warfarin Sodium (Coumadin Tab) 5 mg DAILY@1600 PO 12/24/16 16:00 01/23/17 15:59 Ranitidine HCl (zANTac TAB) 150 mg DAILY PO 12/24/16 10:00 01/23/17 09:59 12/24/16 11:11 150 MG Objective Vital Signs Date Time Temp Pulse Resp B/P (MAP) Pulse Ox O2 Delivery O2 Flow Rate FiO2 12/24/16 13:38 36.8 88 17 99/65 (76) 93 Room Air 12/24/16 12:17 Nasal Cannula 12/24/16 12:01 36.7 96 21 112/75 (87) 95 Nasal Cannula 1.0 12/24/16 12:00 Nasal Cannula 1.0 12/24/16 11:04 36.6 73 21 93 1.0 12/24/16 11:01 78 19 113/74 (87) 12/24/16 10:01 73 21 120/76 (91) 93 Nasal Cannula 1.0 12/24/16 09:01 75 20 117/66 (83) 96 Nasal Cannula 2.0 12/24/16 08:01 36.6 99 22 100/74 (83) 93 Nasal Cannula 2.0 12/24/16 08:00 Nasal Cannula 2.0 12/24/16 07:01 98 20 110/90 (97) 94 Nasal Cannula 2.0 12/24/16 05:01 69 22 117/67 (84) 91 Nasal Cannula 2.0 12/24/16 04:03 95 Nasal Cannula 2.0 12/24/16 04:01 71 26 111/59 (76) Nasal Cannula 2.0 12/24/16 03:01 71 22 112/66 (81) 93 Nasal Cannula 2.0 12/24/16 02:01 69 23 122/62 (82) 93 Nasal Cannula 2.0 12/24/16 01:01 71 26 116/61 (79) 94 Nasal Cannula 2.0 12/24/16 00:04 95 Nasal Cannula 2.0 12/24/16 00:02 69 25 121/65 (83) 93 Nasal Cannula 2.0 12/23/16 23:01 67 23 96/57 (70) 95 Nasal Cannula 2.0 12/23/16 22:02 69 24 105/63 (77) 95 Nasal Cannula 2.0 12/23/16 21:01 71 23 99/61 (74) 95 Nasal Cannula 2.0 12/23/16 20:05 95 Nasal Cannula 2.0 12/23/16 20:01 36.8 71 25 103/66 (78) 92 Nasal Cannula 2.0 12/23/16 19:56 70 28 108/59 (75) 95 Nasal Cannula 2.0 12/23/16 19:01 95 29 107/67 (80) 94 Nasal Cannula 2.0 12/23/16 18:01 92 22 108/69 (82) 90 Nasal Cannula 2.0 12/23/16 17:53 90 18 123/69 (87) 94 Nasal Cannula 2.0 12/23/16 17:02 88 24 104/91 (95) 95 Nasal Cannula 2.0 12/23/16 16:02 36.5 88 19 124/80 (95) 98 Nasal Cannula 2.0 12/23/16 16:00 Nasal Cannula 2.0 Physical Exam General Appearance: WD/WN, no apparent distress Eyes: normal inspection, EOMI, sclerae normal ENT: normal ENT inspection, hearing grossly normal, pharynx normal Neck: supple, no adenopathy, no JVD, trachea midline Respiratory/Chest: chest non-tender, lungs clear, normal breath sounds, no respiratory distress, no accessory muscle use Cardiovascular: regular rate, rhythm, no edema, no gallop, no JVD, no murmur Abdomen: normal bowel sounds, non tender, soft, no organomegaly Extremities: normal range of motion, no calf tenderness, normal capillary refill, pelvis stable, + pertinent finding (right calf enlarged, swollen, slightly tense) 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, alert, normal mood/affect, oriented x 3, + motor weakness (generalized) Skin: + rash (right lower leg erythema, less intense, cooler to touch) Laboratory Results Last 24 Hours Test 12/23/16 15:49 12/23/16 21:57 12/24/16 05:19 Bedside Glucose 123 mg/dl Hemoglobin 10.0 g/dL 9.3 g/dL Hematocrit 30.8 % 30.3 % White Blood Count 9.70 K/uL Red Blood Count 3.39 M/uL Mean Corpuscular Volume 89.4 fL Mean Corpuscular Hemoglobin 27.4 pg Mean Corpuscular Hemoglobin Concent 30.7 g/dl Platelet Count 104 K/uL Mean Platelet Volume 10.6 fL Neutrophils (%) (Auto) 84.5 % Lymphocytes (%) (Auto) 7.4 % Monocytes (%) (Auto) 7.3 % Eosinophils (%) (Auto) 0.5 % Basophils (%) (Auto) 0.0 % Neutrophils # (Auto) 8.19 K/uL Lymphocytes # (Auto) 0.72 K/uL Monocytes # (Auto) 0.71 K/uL Eosinophils # (Auto) 0.05 K/uL Basophils # (Auto) 0.00 K/uL RDW Standard Deviation 48.6 fL RDW Coefficient of Variation 14.8 % Immature Granulocyte % (Auto) 0.3 % Immature Granulocyte # (Auto) 0.03 K/uL Prothrombin Time 23.9 SECONDS Prothromb Time International Ratio 2.2 Sodium Level 138 mmol/L Potassium Level 3.5 mmol/L Chloride Level 106 mmol/L Carbon Dioxide Level 27 mmol/L Anion Gap 5.0 mmol/L Blood Urea Nitrogen 27 mg/dl Creatinine 1.30 mg/dl Est Creatinine Clear Calc Drug Dose 33.2 ml/min Estimated GFR () 43.6 Estimated GFR (Non- 37.6 BUN/Creatinine Ratio 21.0 Random Glucose 124 mg/dl Calcium Level 7.7 mg/dl Phosphorus Level 1.9 mg/dl Magnesium Level 2.3 mg/dl Vancomycin Level Trough 19.7 mcg/ml Assessment and Plan - Sepsis from right lower extremity cellulitis still no signs of shock, BP preserved, HR in 60's continue Vanco, Zosyn and Clindamycin today and taper tomorrow follow up on cultures from knee site WBC trending down, Cr improving no signs of joint involvement on joint aspiration chronic DVT - Elevated CK: mild rhabdomyolysis, non traumatic will repeat CK level tomorrow AM no signs of compartment syndrome currently, continue to monitor - MARTÍN on CKD stage III: Cr down to 1.3, adequate UO, stop fluids today, keep viera but likely d/c tomorrow - AAA: quite large at 6cm, ICU discussed results with patient, no intervention at this time - DVT/PE with h/o IVC filter: continue Coumadin for now, INR therapeutic - CAD with elevated troponin: due to MARTÍN, no chest pain, no EKG changes (paced) continue aspirin and Plavix elevated troponin is demand ischemia - Anemia and thrombocytopenia: suspect it is due to infection, will monitor daily transfer to tele, continue PT/OT
--- NOTE | 2016-12-24 15:42 | Orthopedic Progress Note ---
Orthopedic Progress Note Date of Service Dec 24, 2016. Subjective Reports: feeling well Additional Notes: Pt sleeping upon arrival but easily awoken. Pleasant. C/O pain in the lower portion of the RLE. States her knee is feeling better today and that overall, the leg is improving. Hoping to get a lot of the fluid out of her leg soon. Objective RLE with moderate edema below the knee starting at about mid tibia. Erythema present in this area that goes down to the foot. Foot swollen and erythematous. The knee is nontender on palpation. The small wound area over the prepatellar bursa is not draining. She has no overt fluctuance but the lateral side is firm /boggy, medial side a softer. Tenderness in the leg starts at mid tibia and worsens at the ankle. Most of the tenderness is at the ankle area. Moderate edema of the ankle. Dorsum of foot with minimal tenderness. Passive DF of the ankle does not cause her overt pain in the ankle. Toes are NT. Date Time Temp Pulse Resp B/P (MAP) Pulse Ox O2 Delivery O2 Flow Rate FiO2 12/24/16 13:38 36.8 88 17 99/65 (76) 93 Room Air 12/24/16 12:17 Nasal Cannula 12/24/16 12:01 36.7 96 21 112/75 (87) 95 Nasal Cannula 1.0 12/24/16 12:00 Nasal Cannula 1.0 12/24/16 11:04 36.6 73 21 93 1.0 12/24/16 11:01 78 19 113/74 (87) 12/24/16 10:01 73 21 120/76 (91) 93 Nasal Cannula 1.0 12/24/16 09:01 75 20 117/66 (83) 96 Nasal Cannula 2.0 12/24/16 08:01 36.6 99 22 100/74 (83) 93 Nasal Cannula 2.0 12/24/16 08:00 Nasal Cannula 2.0 12/24/16 07:01 98 20 110/90 (97) 94 Nasal Cannula 2.0 12/24/16 05:01 69 22 117/67 (84) 91 Nasal Cannula 2.0 12/24/16 04:03 95 Nasal Cannula 2.0 12/24/16 04:01 71 26 111/59 (76) Nasal Cannula 2.0 12/24/16 03:01 71 22 112/66 (81) 93 Nasal Cannula 2.0 12/24/16 02:01 69 23 122/62 (82) 93 Nasal Cannula 2.0 12/24/16 01:01 71 26 116/61 (79) 94 Nasal Cannula 2.0 12/24/16 00:04 95 Nasal Cannula 2.0 12/24/16 00:02 69 25 121/65 (83) 93 Nasal Cannula 2.0 12/23/16 23:01 67 23 96/57 (70) 95 Nasal Cannula 2.0 12/23/16 22:02 69 24 105/63 (77) 95 Nasal Cannula 2.0 12/23/16 21:01 71 23 99/61 (74) 95 Nasal Cannula 2.0 12/23/16 20:05 95 Nasal Cannula 2.0 12/23/16 20:01 36.8 71 25 103/66 (78) 92 Nasal Cannula 2.0 12/23/16 19:56 70 28 108/59 (75) 95 Nasal Cannula 2.0 12/23/16 19:01 95 29 107/67 (80) 94 Nasal Cannula 2.0 12/23/16 18:01 92 22 108/69 (82) 90 Nasal Cannula 2.0 12/23/16 17:53 90 18 123/69 (87) 94 Nasal Cannula 2.0 12/23/16 17:02 88 24 104/91 (95) 95 Nasal Cannula 2.0 12/23/16 16:02 36.5 88 19 124/80 (95) 98 Nasal Cannula 2.0 12/23/16 16:00 Nasal Cannula 2.0 Laboratory Results 24 Hours: Test 12/23/16 21:57 12/24/16 05:19 Hematocrit 30.8 % 30.3 % Hemoglobin 10.0 g/dL 9.3 g/dL White Blood Count 9.70 K/uL Red Blood Count 3.39 M/uL Mean Corpuscular Volume 89.4 fL Mean Corpuscular Hemoglobin 27.4 pg Mean Corpuscular Hemoglobin Concent 30.7 g/dl Platelet Count 104 K/uL Mean Platelet Volume 10.6 fL Neutrophils (%) (Auto) 84.5 % Lymphocytes (%) (Auto) 7.4 % Monocytes (%) (Auto) 7.3 % Eosinophils (%) (Auto) 0.5 % Basophils (%) (Auto) 0.0 % Neutrophils # (Auto) 8.19 K/uL Lymphocytes # (Auto) 0.72 K/uL Monocytes # (Auto) 0.71 K/uL Eosinophils # (Auto) 0.05 K/uL Basophils # (Auto) 0.00 K/uL Prothromb Time International Ratio 2.2 Prothrombin Time 23.9 SECONDS Assessment & Plan Assessment: 1. RIGHT KNEE PAIN 2. LEFT ANKLE PAIN/SWELLING Plan: KNEE WAS ASPIRATED 12/22/[address] TAYLOR, NO FLUID FROM THE KNEE BUT HE DID GET SOME PREPATELLAR FLUID. FOLLOW CULTURE RESULTS. NOTED- PATIENT DOES NOT HAVE A RIGHT KNEE REPLACEMENT NEW, WORSENING ANKLE PAIN 12/23/16. XRAY RESULTS BELOW CT SCAN OF THE LE SHOWS NO ABSCESS OR OSTEOMYELITIS DOPPLER POTENTIALLY POSTIVE FOR CHRONIC DVT. CONTINUE PAIN MGT CONTINUE MEDICAL MGT. Xray of ankle shows likely old medial malleolus fx. Mild arthritic changes. No acute changes. She is not having much pain with passive motion. No pain along the foot. Will continue to observe but if ankle pain doesn't resolve then would consider aspirating to r/o joint infection WITH NO PAIN IN THE ANKLE WITH ROM AND CONTINUED ERYTHEMA, WOULD HOLD OFF ON ANKLE ASPIRATION AT THIS TIME CONTINUE CURRENT ANTIBX PER MEDICAL TEAM
[2016-12-24] MEDS: WARFARIN SOD 5 MG TAB PO SCH (16:52)
[2016-12-24] MEDS: RANOLAZINE 500 MG ER TAB PO SCH (20:45)
[2016-12-25] VITALS (15 sets, daily range): BP systolic 120–153; BP diastolic 74–83; PULSE 66–103; TEMP 36.3–37; O2SAT 93–99
[2016-12-25 04:35] LABS: BASO % 0.1 %; BASO ABS # 0.01 K/uL (0-0.2); COMPLETE YES; EOS % 0.8 %; HEMATOCRIT 29.4 % (37-47); IG% 0.4 %; LYMPH % 7.6 %; MEAN CELL VOLUME 88.3 fL (80-100); MEAN CORPUSCULAR HEMOGLOBIN 29.1 pg (25-34); MEAN PLATELET VOLUME 10.5 fL (7.4-10.4); MONO % 6.9 %; NEUT % 84.2 %; PLATELET COUNT 116 K/uL (130-400); RED BLOOD COUNT 3.33 M/uL (4.2-5.4); WHITE BLOOD COUNT 10.59 K/uL (4.8-10.8)
[2016-12-25 04:50] LABS: PROTHROMBIN TIME (PATIENT) 21.8 SECONDS (9.0-12.0)
[2016-12-25 05:05] LABS: BUN/CREATININE RATIO 20.6 (10-20); CALCIUM 8.7 mg/dl (8.5-10.1); MAGNESIUM 2.1 mg/dl (1.8-2.4); PHOSPHORUS 1.9 mg/dl (2.5-4.9); POTASSIUM 3.9 mmol/L (3.5-5.1)
[2016-12-25] MEDS ORDERED: COUGH DROP (SUGAR FREE) LOZ 24 LOZ/1 BOX ONE (07:41)
[2016-12-25] MEDS: ALBUT/IPRATROP 3MG/0.5MG NEB 3 ML VIAL INH PRN (07:54)
[2016-12-25] MEDS: PIPERACILL/TAZOBAC IV 4.5 GM in DEXTROSE 5% 100ML IV SCH ×3 (08:21→23:22)
[2016-12-25] MEDS ORDERED: VANCOMYCIN TROUGH ONE (08:30)
[2016-12-25] MEDS: VANCOMYCIN INJ 1,000 MG in SODIUM CHLORIDE 0.9% 250ML 250 ML IV SCH ×2 (08:54→21:15)
[2016-12-25] MEDS: MULTIVITAMIN TAB PO SCH (08:55)
[2016-12-25] MEDS: ASPIRIN 81 MG ECTAB PO SCH (08:55)
[2016-12-25] MEDS: ISOSORBIDE MONONITRATE 30 MG TABCR PO SCH (08:57)
[2016-12-25] MEDS: METOPROLOL SUCC 25MG EXT REL TAB PO SCH (08:58)
[2016-12-25] MEDS: GABAPENTIN 600 MG TAB PO SCH ×3 (08:58→20:55)
[2016-12-25] MEDS: OXCARBAZEPINE 150 MG TAB PO SCH ×4 (08:59→20:55)
[2016-12-25] MEDS: RANOLAZINE 500 MG ER TAB PO SCH ×2 (09:00→20:54)
[2016-12-25] MEDS: POT PHOSPHATE MONOBASIC W/ SOD TAB PO SCH ×2 (09:00→20:55)
[2016-12-25] MEDS ORDERED: FUROSEMIDE INJ 20 MG in SYRINGE 0 ML IV ONE (09:00)
[2016-12-25] MEDS: RANITIDINE HCL 150 MG TAB PO SCH (09:01)
[2016-12-25] MEDS: ACETAMINOPHEN 325 MG TAB PO PRN ×2 (09:08→16:14)
[2016-12-25] MEDS: CLOPIDOGREL BISULFATE 75 MG TAB PO SCH (10:17)
--- NOTE | 2016-12-25 13:49 | Medical Student: [facility] ---
Med Student Progress Note Date of Service Dec 25, 2016. Subjective Pt evaluation today including: conversation w/ patient, conversation w/ family , physical exam, chart review, lab review, review of studies Pain: 7/10 at right lower extremity PO Intake: Regular diet Voiding: viera catheter in place Ms. Paige Ely is an 86 year old woman with PMH significant for PE, CAD, DVT, chronic superficial femoral thrombus & chronic anticoagulation on Coumadin who was admitted on 12/22/16 for sepsis secondary to right lower extremity cellulitis. Hospital Day #3: No acute events overnight. She reports that her right LE pain is worse today, 10/28. She had intermittent tachycardia overnight. She is currently at 95% on 3L NC. She did not have much appetite this morning. She has not worked with PT yet due to pain. Per family, she had some shortness of breath early this morning as well as a sore throat that improved with nebulizer treatments. Review of Systems Constitutional: + weakness, + fatigue, No fever, No chills, No sweats Eyes: No worsening of vision, No redness ENT: + sore throat (improved with nebulizer treatment ), No nasal symptoms Respiratory: + shortness of breath, No cough, No wheezing Cardiac: No chest pain, No orthopnea Abdomen: No nausea, No vomiting, No diarrhea, No constipation Musculoskeletal: + swelling (RLE from below the knee ) Female : No dysuria, No urinary frequency Neurologic: No weakness, No numbness/tingling Psychiatric: No depression symptoms, No anxiety Heme: No abnormal bleeding/bruising, No clotting problems Endo: + fatigue Skin: + problem reported (Erythema and edema of right lower extremity from the knee down. It is extremely painful to the touch ) Objective Vital Signs Date Time Temp Pulse Resp B/P (MAP) Pulse Ox O2 Delivery O2 Flow Rate FiO2 12/25/16 07:54 66 18 97 Mask 4.0 12/25/16 07:44 37.0 69 20 132/83 (99) 95 Nasal Cannula 12/25/16 04:00 94 Nasal Cannula 3.0 12/25/16 03:20 36.3 103 23 120/77 (91) 98 Nasal Cannula 3.0 12/24/16 23:59 94 Nasal Cannula 3.0 12/24/16 23:39 36.7 69 19 136/73 (94) 94 Nasal Cannula 3.0 12/24/16 20:00 Room Air 12/24/16 19:13 36.9 69 22 112/70 (84) 94 Room Air 12/24/16 16:00 96 Room Air 12/24/16 15:56 36.6 69 20 104/64 (77) 96 Room Air 12/24/16 13:38 36.8 88 17 99/65 (76) 93 Room Air 12/24/16 12:17 Nasal Cannula 12/24/16 12:01 36.7 96 21 112/75 (87) 95 Nasal Cannula 1.0 12/24/16 12:00 Nasal Cannula 1.0 12/24/16 11:04 36.6 73 21 93 1.0 12/24/16 11:01 78 19 113/74 (87) 12/24/16 10:01 73 21 120/76 (91) 93 Nasal Cannula 1.0 12/24/16 09:01 75 20 117/66 (83) 96 Nasal Cannula 2.0 12/24/16 08:01 36.6 99 22 100/74 (83) 93 Nasal Cannula 2.0 12/24/16 08:00 Nasal Cannula 2.0 Physical Exam General Appearance: WD/WN, + mild distress Eyes: bilateral eyes normal inspection ENT: normal ENT inspection, hearing grossly normal Neck: supple, no adenopathy, thyroid normal, trachea midline Respiratory/Chest: chest non-tender, lungs clear, no respiratory distress, no accessory muscle use, + crackles (bilaterally ) Cardiovascular: regular rate, rhythm, no edema, no gallop, no murmur Abdomen: normal bowel sounds, non tender, soft, no organomegaly, no pulsatile mass Extremities: no calf tenderness, + pertinent finding (Extremely tender, erythematous, edematous right lower extremity. Wound at right knee is clean, dry , intact. Several small blisters have appeared on anterior and posterior surface. ) Neurologic/Psychiatric: no motor/sensory deficits, alert, normal mood/affect, oriented x 3 Skin: normal color, warm/dry, no rash Lymphatic: no adenopathy Laboratory Results Last 24 Hours Test 12/24/16 16:16 12/24/16 20:21 12/25/16 04:23 Bedside Glucose 101 mg/dl 117 mg/dl White Blood Count 10.59 K/uL Red Blood Count 3.33 M/uL Hemoglobin 9.7 g/dL Hematocrit 29.4 % Mean Corpuscular Volume 88.3 fL Mean Corpuscular Hemoglobin 29.1 pg Mean Corpuscular Hemoglobin Concent 33.0 g/dl Platelet Count 116 K/uL Mean Platelet Volume 10.5 fL Neutrophils (%) (Auto) 84.2 % Lymphocytes (%) (Auto) 7.6 % Monocytes (%) (Auto) 6.9 % Eosinophils (%) (Auto) 0.8 % Basophils (%) (Auto) 0.1 % Neutrophils # (Auto) 8.92 K/uL Lymphocytes # (Auto) 0.80 K/uL Monocytes # (Auto) 0.73 K/uL Eosinophils # (Auto) 0.09 K/uL Basophils # (Auto) 0.01 K/uL RDW Standard Deviation 47.6 fL RDW Coefficient of Variation 14.6 % Immature Granulocyte % (Auto) 0.4 % Immature Granulocyte # (Auto) 0.04 K/uL Prothrombin Time 21.8 SECONDS Prothromb Time International Ratio 2.0 Sodium Level 138 mmol/L Potassium Level 3.9 mmol/L Chloride Level 107 mmol/L Carbon Dioxide Level 26 mmol/L Anion Gap 5.0 mmol/L Blood Urea Nitrogen 21 mg/dl Creatinine 1.00 mg/dl Est Creatinine Clear Calc Drug Dose 44.3 ml/min Estimated GFR () 59.9 Estimated GFR (Non- 51.7 BUN/Creatinine Ratio 20.6 Random Glucose 129 mg/dl Calcium Level 8.7 mg/dl Phosphorus Level 1.9 mg/dl Magnesium Level 2.1 mg/dl Total Bilirubin 0.8 mg/dl Direct Bilirubin 0.2 mg/dl Aspartate Amino Transf (AST/SGOT) 84 U/L Alanine Aminotransferase (ALT/SGPT) 36 U/L Alkaline Phosphatase 86 U/L Total Creatine Kinase 664 U/L Total Protein 5.9 gm/dl Albumin 1.9 gm/dl Medications Current Inpatient Medications Medications (Trade) Dose Ordered Sig/Darrick Route Start Time Stop Time Status Last Admin Dose Admin Amlodipine Besylate (Norvasc Tab) 5 mg BID PO 12/22/16 21:00 01/21/17 20:59 Future Hold Clopidogrel Bisulfate (plAVix TAB) 75 mg DAILY PO 12/23/16 09:00 01/22/17 08:59 12/25/16 10:17 75 MG Gabapentin (Neurontin Tab) 600 mg TID PO 12/22/16 21:00 01/21/17 20:59 Future hold 12/25/16 13:06 600 MG Isosorbide Mononitrate (Imdur Ext Rel Tab) 90 mg DAILY PO 12/23/16 09:00 01/22/17 08:59 Future hold 12/25/16 08:57 90 MG Metoprolol Succinate (Toprol Xl Tab) 25 mg DAILY PO 12/23/16 09:00 01/22/17 08:59 Future hold 12/25/16 08:58 25 MG Multivitamins (Multivitamin Tab) 1 tab DAILY PO 12/23/16 09:00 01/22/17 08:59 Future hold 12/25/16 08:55 1 TAB Oxcarbazepine (Trileptal Tab) 150 mg QID PO 12/22/16 17:00 01/21/17 16:59 Future hold 12/25/16 13:06 150 MG Ranolazine (Ranexa ER Tab) 500 mg BID PO 12/22/16 21:00 01/21/17 20:59 Future hold 12/25/16 09:00 500 MG Acetaminophen (Tylenol Tab) 650 mg Q4H PRN PO 12/22/16 16:30 01/21/17 16:29 12/25/16 09:08 650 MG Magnesium Hydroxide (Milk Of Magnesia Susp) 30 ml Q12H PRN PO 12/22/16 16:30 01/21/17 16:29 Ondansetron HCl (Zofran Inj) 4 mg Q6H PRN IV 12/22/16 16:30 01/21/17 16:29 Nitroglycerin (Nitrostat Tab) 0.4 mg UD PRN SL 12/22/16 16:30 01/21/17 16:29 Future hold 12/23/16 17:57 0.4 MG Polyethylene (Miralax Powder Packet) 17 gm DAILY PRN PO 12/22/16 16:30 01/21/17 16:29 Aspirin (Ecotrin Tab) 81 mg QAM PO 12/23/16 09:00 01/22/17 08:59 12/25/16 08:55 81 MG Metoprolol Tartrate (Lopressor Iv) 5 mg Q6 PRN IV 12/22/16 19:00 01/21/17 18:59 Vancomycin HCl (Consult) 1 ea UD PRN N/A 12/22/16 19:51 01/21/17 19:50 Piperacillin Sod/ Tazobactam Sod (Consult) 1 ea UD PRN N/A 12/22/16 20:00 01/21/17 19:59 Piperacillin Sod/ Tazobactam Sod 4.5 gm/Dextrose 120 ml @ 30 mls/hr Q8H IV 12/23/16 00:00 01/01/17 00:00 12/25/16 08:21 30 MLS/HR Heparin Sodium (Porcine) (Heparin 10 Unit/ ml 5 ml Flush) 5 ml PRN PRN FLUSH 12/22/16 23:45 01/21/17 23:44 Vancomycin HCl 1000 mg/Sodium Chloride 270 ml @ 125 mls/hr Q12@0900,2100 IV 12/23/16 09:00 01/02/17 08:59 12/25/16 08:54 125 MLS/HR Warfarin Sodium (Coumadin Tab) 5 mg DAILY@1600 PO 12/24/16 16:00 01/23/17 15:59 12/24/16 16:52 5 MG Ranitidine HCl (zANTac TAB) 150 mg DAILY PO 12/24/16 10:00 01/23/17 09:59 12/25/16 09:01 150 MG Potassium/ Phosphorus/Sodium (Phospha 250 Neutral 155-852-130 Mg) 1 tab BID PO 12/25/16 09:00 01/24/17 08:59 12/25/16 09:00 1 TAB Furosemide 20 mg/ Syringe 2 ml @ 4 mls/min Q12 IV 12/25/16 21:00 01/24/17 20:59 Tramadol HCl (Ultram Tab) 50 mg Q4H PRN PO 12/25/16 11:00 01/24/17 10:59 Albuterol/ Ipratropium (Duoneb) 3 ml Q6R INH 12/25/16 15:00 01/24/17 14:59 Assessment and Plan Assessment and Plan: ASSESSMENT: Ms. Paige Ely is an 86 year old woman with PMH significant for PE, CAD, DVT, chronic superficial femoral thrombus & chronic anticoagulation on Coumadin who was admitted on 12/22/16 for sepsis secondary to right lower extremity cellulitis. Her cellulitis is responding appropriately to triple antibiotic therapy. She is stable to be moved from telemetry to the medical floor. She reported that her pain was better controlled with tramadol and IV lasix. PLAN: Sepsis 2/2 right lower extremity cellulitis No signs of shock, BP preserved, HR in 60's RLE erythema and edema shows mild improvement. Pain is worse today. No signs of joint involvement on joint aspiration Chronic DVT No signs of infected knee joint or prepatellar bursa Continue IV Vancomycin and Clindamycin, which are appropriate given the culture sensitives Discontinue IV Zosyn Pain control with tramadol 50 mg PRN q4hrs and tylenol 650 mg PRN q4hrs Elevated CK: mild rhabdomyolysis, non traumatic CK downtrending appropriatly 4198 --> 664 No signs of compartment syndrome in RLE currently, monitor closely MARTÍN on CKD stage III Cr down to 1.0, adequate UOP Stop IVF Start IV Lasix 20 mg q12hr Viera catheter remains in place AAA, 6cm No intervention at this time DVT/PE with h/o IVC filter: Continue Coumadin 5mg CAD with elevated troponin Likely due to MARTÍN, not cardiac, given that she has no chest pain and no EKG changes (paced) Continue home aspirin Continue Plavix
[2016-12-25] MEDS: ALBUT/IPRATROP 3MG/0.5MG NEB 3 ML VIAL INH SCH ×3 (14:29→19:14)
--- NOTE | 2016-12-25 15:26 | Progress Note ---
Subjective Date of Service: Dec 25, 2016. Subjective Pt evaluation today including: conversation w/ patient, conversation w/ family , physical exam, lab review, review of inpatient medication list Pain: pain in right leg PO Intake: improving Voiding: viera catheter in place patient continues to do well, slightly more pain in right leg but seems to be better after Lasix, swelling decreased reviewed labs, Cr at 1.0 and CK coming down into the 600's afebrile, vitals stable but with some mild tachycardia, likely from mobilizing fluids Problem List Medical Problems: (1) Acute renal failure Status: Acute (2) Cellulitis Status: Acute (3) NSTEMI (non-ST elevated myocardial infarction) Status: Acute (4) Right-sided chest pain Status: Acute (5) Supratherapeutic INR Status: Acute Review of Systems Constitutional: + weakness, + fatigue Cardiac: + edema (right leg) Musculoskeletal: + calf pain (right leg) Skin: + rash (erythema right leg) All Other Systems: Reviewed and Negative Medications Current Inpatient Medications Medications (Trade) Dose Ordered Sig/Darrick Route Start Time Stop Time Status Last Admin Dose Admin Amlodipine Besylate (Norvasc Tab) 5 mg BID PO 12/22/16 21:00 01/21/17 20:59 Future Hold Clopidogrel Bisulfate (plAVix TAB) 75 mg DAILY PO 12/23/16 09:00 01/22/17 08:59 12/25/16 10:17 75 MG Gabapentin (Neurontin Tab) 600 mg TID PO 12/22/16 21:00 01/21/17 20:59 Future hold 12/25/16 13:06 600 MG Isosorbide Mononitrate (Imdur Ext Rel Tab) 90 mg DAILY PO 12/23/16 09:00 01/22/17 08:59 Future hold 12/25/16 08:57 90 MG Metoprolol Succinate (Toprol Xl Tab) 25 mg DAILY PO 12/23/16 09:00 01/22/17 08:59 Future hold 12/25/16 08:58 25 MG Multivitamins (Multivitamin Tab) 1 tab DAILY PO 12/23/16 09:00 01/22/17 08:59 Future hold 12/25/16 08:55 1 TAB Oxcarbazepine (Trileptal Tab) 150 mg QID PO 12/22/16 17:00 01/21/17 16:59 Future hold 12/25/16 13:06 150 MG Ranolazine (Ranexa ER Tab) 500 mg BID PO 12/22/16 21:00 01/21/17 20:59 Future hold 12/25/16 09:00 500 MG Acetaminophen (Tylenol Tab) 650 mg Q4H PRN PO 12/22/16 16:30 01/21/17 16:29 12/25/16 09:08 650 MG Magnesium Hydroxide (Milk Of Magnesia Susp) 30 ml Q12H PRN PO 12/22/16 16:30 01/21/17 16:29 Ondansetron HCl (Zofran Inj) 4 mg Q6H PRN IV 12/22/16 16:30 01/21/17 16:29 Nitroglycerin (Nitrostat Tab) 0.4 mg UD PRN SL 12/22/16 16:30 01/21/17 16:29 Future hold 12/23/16 17:57 0.4 MG Polyethylene (Miralax Powder Packet) 17 gm DAILY PRN PO 12/22/16 16:30 01/21/17 16:29 Aspirin (Ecotrin Tab) 81 mg QAM PO 12/23/16 09:00 01/22/17 08:59 12/25/16 08:55 81 MG Metoprolol Tartrate (Lopressor Iv) 5 mg Q6 PRN IV 12/22/16 19:00 01/21/17 18:59 Vancomycin HCl (Consult) 1 ea UD PRN N/A 12/22/16 19:51 01/21/17 19:50 Piperacillin Sod/ Tazobactam Sod (Consult) 1 ea UD PRN N/A 12/22/16 20:00 01/21/17 19:59 Piperacillin Sod/ Tazobactam Sod 4.5 gm/Dextrose 120 ml @ 30 mls/hr Q8H IV 12/23/16 00:00 01/01/17 00:00 12/25/16 08:21 30 MLS/HR Heparin Sodium (Porcine) (Heparin 10 Unit/ ml 5 ml Flush) 5 ml PRN PRN FLUSH 12/22/16 23:45 01/21/17 23:44 Vancomycin HCl 1000 mg/Sodium Chloride 270 ml @ 125 mls/hr Q12@0900,2100 IV 12/23/16 09:00 01/02/17 08:59 12/25/16 08:54 125 MLS/HR Warfarin Sodium (Coumadin Tab) 5 mg DAILY@1600 PO 12/24/16 16:00 01/23/17 15:59 12/24/16 16:52 5 MG Ranitidine HCl (zANTac TAB) 150 mg DAILY PO 12/24/16 10:00 01/23/17 09:59 12/25/16 09:01 150 MG Potassium/ Phosphorus/Sodium (Phospha 250 Neutral 155-852-130 Mg) 1 tab BID PO 12/25/16 09:00 01/24/17 08:59 12/25/16 09:00 1 TAB Furosemide 20 mg/ Syringe 2 ml @ 4 mls/min Q12 IV 12/25/16 21:00 01/24/17 20:59 Tramadol HCl (Ultram Tab) 50 mg Q4H PRN PO 12/25/16 11:00 01/24/17 10:59 Albuterol/ Ipratropium (Duoneb) 3 ml Q6R INH 12/25/16 15:00 01/24/17 14:59 12/25/16 14:29 3 ML Objective Vital Signs Date Time Temp Pulse Resp B/P (MAP) Pulse Ox O2 Delivery O2 Flow Rate FiO2 12/25/16 14:45 36.6 82 20 127/74 (91) 97 Nasal Cannula 3.0 12/25/16 14:30 77 18 96 Mask 4.0 12/25/16 12:11 66 18 99 Mask 4.0 12/25/16 11:22 95 Nasal Cannula 12/25/16 11:16 37.0 66 18 95 3.0 12/25/16 11:01 Nasal Cannula 12/25/16 08:00 95 Nasal Cannula 3.0 12/25/16 07:54 66 18 97 Mask 4.0 12/25/16 07:44 37.0 69 20 132/83 (99) 95 Nasal Cannula 12/25/16 04:00 94 Nasal Cannula 3.0 12/25/16 03:20 36.3 103 23 120/77 (91) 98 Nasal Cannula 3.0 12/24/16 23:59 94 Nasal Cannula 3.0 12/24/16 23:39 36.7 69 19 136/73 (94) 94 Nasal Cannula 3.0 12/24/16 20:00 Room Air 12/24/16 19:13 36.9 69 22 112/70 (84) 94 Room Air 12/24/16 16:00 96 Room Air 12/24/16 15:56 36.6 69 20 104/64 (77) 96 Room Air Physical Exam General Appearance: WD/WN, no apparent distress Eyes: normal inspection, EOMI, sclerae normal ENT: normal ENT inspection, hearing grossly normal, pharynx normal Neck: supple, no adenopathy, no JVD, trachea midline Respiratory/Chest: chest non-tender, lungs clear, normal breath sounds, no respiratory distress, no accessory muscle use Cardiovascular: regular rate, rhythm, no edema, no gallop, no JVD, no murmur Abdomen: normal bowel sounds, non tender, soft, no organomegaly Extremities: normal range of motion, normal inspection, no pedal edema, no calf tenderness, + swelling (right leg), + pertinent finding (right leg tender to light palpation) Neurologic/Psychiatric: rug sizer II-XII nml as tested, alert, normal mood/affect, oriented x 3, + motor weakness (generalized) Skin: + rash (erythema right lower leg, improved) Laboratory Results Last 24 Hours Test 12/24/16 16:16 12/24/16 20:21 12/25/16 04:23 12/25/16 08:28 Bedside Glucose 101 mg/dl 117 mg/dl White Blood Count 10.59 K/uL Red Blood Count 3.33 M/uL Hemoglobin 9.7 g/dL Hematocrit 29.4 % Mean Corpuscular Volume 88.3 fL Mean Corpuscular Hemoglobin 29.1 pg Mean Corpuscular Hemoglobin Concent 33.0 g/dl Platelet Count 116 K/uL Mean Platelet Volume 10.5 fL Neutrophils (%) (Auto) 84.2 % Lymphocytes (%) (Auto) 7.6 % Monocytes (%) (Auto) 6.9 % Eosinophils (%) (Auto) 0.8 % Basophils (%) (Auto) 0.1 % Neutrophils # (Auto) 8.92 K/uL Lymphocytes # (Auto) 0.80 K/uL Monocytes # (Auto) 0.73 K/uL Eosinophils # (Auto) 0.09 K/uL Basophils # (Auto) 0.01 K/uL RDW Standard Deviation 47.6 fL RDW Coefficient of Variation 14.6 % Immature Granulocyte % (Auto) 0.4 % Immature Granulocyte # (Auto) 0.04 K/uL Prothrombin Time 21.8 SECONDS Prothromb Time International Ratio 2.0 Sodium Level 138 mmol/L Potassium Level 3.9 mmol/L Chloride Level 107 mmol/L Carbon Dioxide Level 26 mmol/L Anion Gap 5.0 mmol/L Blood Urea Nitrogen 21 mg/dl Creatinine 1.00 mg/dl Est Creatinine Clear Calc Drug Dose 44.3 ml/min Estimated GFR () 59.9 Estimated GFR (Non- 51.7 BUN/Creatinine Ratio 20.6 Random Glucose 129 mg/dl Calcium Level 8.7 mg/dl Phosphorus Level 1.9 mg/dl Magnesium Level 2.1 mg/dl Total Bilirubin 0.8 mg/dl Direct Bilirubin 0.2 mg/dl Aspartate Amino Transf (AST/SGOT) 84 U/L Alanine Aminotransferase (ALT/SGPT) 36 U/L Alkaline Phosphatase 86 U/L Total Creatine Kinase 664 U/L Total Protein 5.9 gm/dl Albumin 1.9 gm/dl Vancomycin Level Trough 18.2 mcg/ml Assessment and Plan - Sepsis from right lower extremity cellulitis sepsis resolved, now mobilizing fluids with some mild tachycardia start Lasix 20mg IV q12, responding well continue Vanco and Zosyn today, if leg improves more with consider PO abx tomorrow knee culture with MSSA and Group C strep WBC normal and Cr normal no signs of joint involvement on joint aspiration chronic DVT - Elevated CK: mild rhabdomyolysis, non traumatic CK down to 600's, will not check further no signs of compartment syndrome - MARTÍN on CKD stage III: Cr down to 1.0, adequate UO, actually self diuresing today Lasix 20mg IV q12 to help with diuresis - AAA: quite large at 6cm, ICU discussed results with patient, no intervention at this time - DVT/PE with h/o IVC filter: continue Coumadin for now, INR therapeutic - CAD with elevated troponin: due to MARTÍN, no chest pain, no EKG changes (paced) continue aspirin and Plavix elevated troponin is demand ischemia - Anemia and thrombocytopenia: suspect it is due to infection, will monitor daily plts and h/h improving transfer to medical, continue PT/OT
--- NOTE | 2016-12-25 16:20 | Progress Note ---
Orthopedic SOAP Note Subjective Date of Service: Dec 25, 2016. Additional Notes: feeling better Problem List Medical Problems: (1) Acute renal failure Status: Acute (2) Cellulitis Status: Acute (3) NSTEMI (non-ST elevated myocardial infarction) Status: Acute (4) Right-sided chest pain Status: Acute (5) Supratherapeutic INR Status: Acute Objective erythema around ankle ,no major pain with rom, blisters around ankle area superficial blood/serum filled ,no pus, knee benign no fluid in prepatellar bursa,swelling decreased some skin wrinkles developing. Date Time Temp Pulse Resp B/P (MAP) Pulse Ox O2 Delivery O2 Flow Rate FiO2 12/25/16 15:59 71 97 12/25/16 14:45 36.6 82 20 127/74 (91) 97 Nasal Cannula 3.0 12/25/16 14:30 77 18 96 Mask 4.0 12/25/16 12:11 66 18 99 Mask 4.0 12/25/16 11:22 95 Nasal Cannula 12/25/16 11:16 37.0 66 18 95 3.0 12/25/16 11:01 Nasal Cannula 12/25/16 08:00 95 Nasal Cannula 3.0 12/25/16 07:54 66 18 97 Mask 4.0 12/25/16 07:44 37.0 69 20 132/83 (99) 95 Nasal Cannula 12/25/16 04:00 94 Nasal Cannula 3.0 12/25/16 03:20 36.3 103 23 120/77 (91) 98 Nasal Cannula 3.0 12/24/16 23:59 94 Nasal Cannula 3.0 12/24/16 23:39 36.7 69 19 136/73 (94) 94 Nasal Cannula 3.0 12/24/16 20:00 Room Air 12/24/16 19:13 36.9 69 22 112/70 (84) 94 Room Air Laboratory Results 24 Hours: Test 12/25/16 04:23 White Blood Count 10.59 K/uL Red Blood Count 3.33 M/uL Hemoglobin 9.7 g/dL Hematocrit 29.4 % Mean Corpuscular Volume 88.3 fL Mean Corpuscular Hemoglobin 29.1 pg Mean Corpuscular Hemoglobin Concent 33.0 g/dl Platelet Count 116 K/uL Mean Platelet Volume 10.5 fL Neutrophils (%) (Auto) 84.2 % Lymphocytes (%) (Auto) 7.6 % Monocytes (%) (Auto) 6.9 % Eosinophils (%) (Auto) 0.8 % Basophils (%) (Auto) 0.1 % Neutrophils # (Auto) 8.92 K/uL Lymphocytes # (Auto) 0.80 K/uL Monocytes # (Auto) 0.73 K/uL Eosinophils # (Auto) 0.09 K/uL Basophils # (Auto) 0.01 K/uL Prothromb Time International Ratio 2.0 Prothrombin Time 21.8 SECONDS Assessment 1. RIGHT KNEE PAIN 2. LEFT ANKLE PAIN/SWELLING,cellulitis,improving Plan KNEE WAS ASPIRATED 12/22/[address] TAYLOR, NO FLUID FROM THE KNEE BUT HE DID GET SOME PREPATELLAR FLUID. CULTURE RESULTS no growth to date. NOTED- PATIENT DOES NOT HAVE A RIGHT KNEE REPLACEMENT.superficial drainage staph and strep improving ANKLE PAIN 12/23/16. XRAY RESULTS BELOW CT SCAN OF THE LE SHOWS NO ABSCESS OR OSTEOMYELITis Xray of ankle shows likely old medial malleolus fx. Mild arthritic changes. No acute changes. She is not having much pain with passive motion. No pain along the foot. WITH NO PAIN IN THE ANKLE WITH ROM AND CONTINUED ERYTHEMA, WOULD HOLD OFF ON ANKLE ASPIRATION AT THIS TIME CONTINUE CURRENT ANTIBX PER MEDICAL TEAM.
[2016-12-25] MEDS: WARFARIN SOD 5 MG TAB PO SCH (16:29)
[2016-12-25] MEDS: TRAMADOL HCL 50 MG TAB PO PRN (19:40)
[2016-12-25] MEDS: FUROSEMIDE INJ 20 MG in SYRINGE 0 ML IV SCH (20:53)
[2016-12-26] VITALS (10 sets, daily range): BP systolic 112–151; BP diastolic 70–82; PULSE 67–86; TEMP 36.7–37; O2SAT 92–97
[2016-12-26] MEDS: ALBUT/IPRATROP 3MG/0.5MG NEB 3 ML VIAL INH SCH ×4 (02:34→20:31)
[2016-12-26 07:32] LABS: HEMATOCRIT 29.8 % (37-47); MEAN CELL VOLUME 88.4 fL (80-100); MEAN CORPUSCULAR HEMOGLOBIN 28.2 pg (25-34); MEAN CORPUSCULAR HGB CONC 31.9 g/dl (32-36); MEAN PLATELET VOLUME 9.9 fL (7.4-10.4); PLATELET COUNT 143 K/uL (130-400); RED BLOOD COUNT 3.37 M/uL (4.2-5.4); WHITE BLOOD COUNT 10.36 K/uL (4.8-10.8)
[2016-12-26 07:42] LABS: INR 3.1 (0.9-1.1); PROTHROMBIN TIME (PATIENT) 34.7 SECONDS (9.0-12.0)
[2016-12-26] MEDS: CLOPIDOGREL BISULFATE 75 MG TAB PO SCH (07:48)
[2016-12-26] MEDS: RANITIDINE HCL 150 MG TAB PO SCH (07:48)
[2016-12-26] MEDS: ASPIRIN 81 MG ECTAB PO SCH (07:48)
[2016-12-26] MEDS: POT PHOSPHATE MONOBASIC W/ SOD TAB PO SCH ×2 (07:49→21:12)
[2016-12-26] MEDS: MULTIVITAMIN TAB PO SCH (07:49)
[2016-12-26] MEDS: GABAPENTIN 600 MG TAB PO SCH ×3 (07:49→21:12)
[2016-12-26] MEDS: ISOSORBIDE MONONITRATE 30 MG TABCR PO SCH (07:49)
[2016-12-26] MEDS: METOPROLOL SUCC 25MG EXT REL TAB PO SCH (07:49)
[2016-12-26] MEDS: RANOLAZINE 500 MG ER TAB PO SCH ×2 (07:49→21:12)
[2016-12-26] MEDS: OXCARBAZEPINE 150 MG TAB PO SCH ×4 (07:50→21:12)
[2016-12-26] MEDS: PIPERACILL/TAZOBAC IV 4.5 GM in DEXTROSE 5% 100ML IV SCH ×2 (07:55→15:39)
[2016-12-26 08:07] LABS: BASO % 0.2 %; BASO ABS # 0.02 K/uL (0-0.2); COMPLETE YES; DOHLE BODIES 1+; EOS % 0.8 %; IG% 0.7 %; LYMPH ABS # 0.83 K/uL (1.2-3.4); MONO % 8.7 %; NEUT % 81.6 %
[2016-12-26 08:13] LABS: BUN/CREATININE RATIO 15.5 (10-20); CALCIUM 8.8 mg/dl (8.5-10.1); CREATININE 1.1 mg/dl (0.60-1.20); MAGNESIUM 1.7 mg/dl (1.8-2.4); PHOSPHORUS 2.3 mg/dl (2.5-4.9); POTASSIUM 3.3 mmol/L (3.5-5.1)
[2016-12-26] MEDS: FUROSEMIDE INJ 20 MG in SYRINGE 0 ML IV SCH ×2 (08:54→21:12)
[2016-12-26] MEDS: VANCOMYCIN INJ 1,000 MG in SODIUM CHLORIDE 0.9% 250ML 250 ML IV SCH ×2 (08:57→21:14)
[2016-12-26] MEDS ORDERED: POTASSIUM CHLORIDE 20 MEQ TABCR PO STA (10:04)
[2016-12-26] MEDS ORDERED: MAGNESIUM OXIDE 400 MG TAB PO ONE (10:04)
[2016-12-26] MEDS: TRAMADOL HCL 50 MG TAB PO PRN ×2 (10:24→14:10)
--- NOTE | 2016-12-26 13:32 | Medical Student: [facility] ---
Med Student Progress Note Date of Service Dec 26, 2016. Subjective Ms. Paige Ely is an 86 year old woman with PMH significant for PE, CAD, DVT, chronic superficial femoral thrombus & chronic anticoagulation on Coumadin who was admitted on 12/22/16 for sepsis secondary to right lower extremity cellulitis. Hospital Day #4: No acute events overnight. She reports that her right LE pain is worse than yesterday. However, she does have her leg covered with blankets today and tolerated more physical exam to the right LE. The leg is dressed with gauze over draining blister. She had intermittent tachycardia overnight. She is currently at 94% on 3L NC. She did not have much appetite this morning. She has not worked with PT yet due to pain. She reports dry cough that kept her awake last night. She has not started incentive spirometer yet but will today. She did sit up and place both feet on the ground yesterday. She will work on toe and ankle exercises per PT. Review of Systems Constitutional: + weakness, + fatigue, No fever, No chills, No sweats, No weight loss Eyes: No redness, No discharge ENT: + sore throat, No nasal symptoms, No tinnitus Respiratory: + cough, + shortness of breath, + dyspnea at rest, No sputum, No wheezing, No dyspnea on exertion, No hemoptysis Cardiac: + edema, No chest pain, No orthopnea, No palpitations Abdomen: No pain, No nausea, No vomiting, No diarrhea, No constipation Musculoskeletal: + joint pain (pain at right ankle. no pain at right knee. ), No muscle pain, No calf pain Female : No dysuria, No urinary frequency Neurologic: No weakness, No numbness/tingling Psychiatric: No depression symptoms, No anxiety Heme: No abnormal bleeding/bruising Endo: + fatigue Skin: + new/changing skin lesions (minor improvement in right LE redness ), No rash, No itch Objective Vital Signs Date Time Temp Pulse Resp B/P (MAP) Pulse Ox O2 Delivery O2 Flow Rate FiO2 12/26/16 10:58 67 18 124/70 (88) 97 Nasal Cannula 3.0 12/26/16 08:00 92 Nasal Cannula 3.0 12/26/16 07:13 84 18 94 Nasal Cannula 3.0 12/26/16 07:09 36.7 71 22 151/82 (105) 92 Nasal Cannula 3.0 12/26/16 02:34 84 18 93 Nasal Cannula 3.0 12/26/16 00:00 Nasal Cannula 3.0 12/25/16 23:31 36.6 78 20 153/78 (103) 94 Room Air 12/25/16 19:15 80 18 93 Nasal Cannula 3.0 12/25/16 17:54 76 18 95 Nasal Cannula 4.0 12/25/16 16:00 97 Nasal Cannula 3.0 12/25/16 15:59 71 97 12/25/16 14:45 36.6 82 20 127/74 (91) 97 Nasal Cannula 3.0 12/25/16 14:30 77 18 96 Mask 4.0 Physical Exam General Appearance: WD/WN, + mild distress, + pertinent finding (frequent dry cough throughout exam ) Eyes: bilateral eyes normal inspection ENT: normal ENT inspection, hearing grossly normal Neck: supple, thyroid normal, trachea midline, + adenopathy present (1cm lymph node palpated at left anterior cervical region ) Respiratory/Chest: chest non-tender, no respiratory distress, no accessory muscle use, + decreased breath sounds (bilaterally ), + crackles (bilaterally ) Cardiovascular: regular rate, rhythm, no edema, no gallop, no murmur Abdomen: normal bowel sounds, non tender, soft, no organomegaly Extremities: + pertinent finding (Improvement in erythema of right lower extremity from below the knee. Still significant edema to the level of mid- tibia. Severely tender to light touch at ankle and anterior leg. Loosely wrapped in white gauze. ) Laboratory Results Last 24 Hours Test 12/26/16 07:22 12/26/16 07:26 12/26/16 11:12 White Blood Count 10.36 K/uL Red Blood Count 3.37 M/uL Hemoglobin 9.5 g/dL Hematocrit 29.8 % Mean Corpuscular Volume 88.4 fL Mean Corpuscular Hemoglobin 28.2 pg Mean Corpuscular Hemoglobin Concent 31.9 g/dl Platelet Count 143 K/uL Mean Platelet Volume 9.9 fL Neutrophils (%) (Auto) 81.6 % Lymphocytes (%) (Auto) 8.0 % Monocytes (%) (Auto) 8.7 % Eosinophils (%) (Auto) 0.8 % Basophils (%) (Auto) 0.2 % Neutrophils # (Auto) 8.46 K/uL Lymphocytes # (Auto) 0.83 K/uL Monocytes # (Auto) 0.90 K/uL Eosinophils # (Auto) 0.08 K/uL Basophils # (Auto) 0.02 K/uL RDW Standard Deviation 48.3 fL RDW Coefficient of Variation 14.8 % Immature Granulocyte % (Auto) 0.7 % Immature Granulocyte # (Auto) 0.07 K/uL Dohle Bodies 1+ Prothrombin Time 34.7 SECONDS Prothromb Time International Ratio 3.1 Sodium Level 138 mmol/L Potassium Level 3.3 mmol/L Chloride Level 102 mmol/L Carbon Dioxide Level 29 mmol/L Anion Gap 7.0 mmol/L Blood Urea Nitrogen 17 mg/dl Creatinine 1.10 mg/dl Est Creatinine Clear Calc Drug Dose 40.4 ml/min Estimated GFR () 53.4 Estimated GFR (Non- 46.1 BUN/Creatinine Ratio 15.5 Random Glucose 112 mg/dl Calcium Level 8.8 mg/dl Phosphorus Level 2.3 mg/dl Magnesium Level 1.7 mg/dl Bedside Glucose 115 mg/dl 143 mg/dl Medications Current Inpatient Medications Medications (Trade) Dose Ordered Sig/Darrick Route Start Time Stop Time Status Last Admin Dose Admin Amlodipine Besylate (Norvasc Tab) 5 mg BID PO 12/22/16 21:00 01/21/17 20:59 Future Hold Clopidogrel Bisulfate (plAVix TAB) 75 mg DAILY PO 12/23/16 09:00 01/22/17 08:59 12/26/16 07:48 75 MG Gabapentin (Neurontin Tab) 600 mg TID PO 12/22/16 21:00 01/21/17 20:59 Future hold 12/26/16 07:49 600 MG Isosorbide Mononitrate (Imdur Ext Rel Tab) 90 mg DAILY PO 12/23/16 09:00 01/22/17 08:59 Future hold 12/26/16 07:49 90 MG Metoprolol Succinate (Toprol Xl Tab) 25 mg DAILY PO 12/23/16 09:00 01/22/17 08:59 Future hold 12/26/16 07:49 25 MG Multivitamins (Multivitamin Tab) 1 tab DAILY PO 12/23/16 09:00 01/22/17 08:59 Future hold 12/26/16 07:49 1 TAB Oxcarbazepine (Trileptal Tab) 150 mg QID PO 12/22/16 17:00 01/21/17 16:59 Future hold 12/26/16 07:50 150 MG Ranolazine (Ranexa ER Tab) 500 mg BID PO 12/22/16 21:00 01/21/17 20:59 Future hold 12/26/16 07:49 500 MG Acetaminophen (Tylenol Tab) 650 mg Q4H PRN PO 12/22/16 16:30 01/21/17 16:29 12/25/16 16:14 650 MG Magnesium Hydroxide (Milk Of Magnesia Susp) 30 ml Q12H PRN PO 12/22/16 16:30 01/21/17 16:29 Ondansetron HCl (Zofran Inj) 4 mg Q6H PRN IV 12/22/16 16:30 01/21/17 16:29 Nitroglycerin (Nitrostat Tab) 0.4 mg UD PRN SL 12/22/16 16:30 01/21/17 16:29 Future hold 12/23/16 17:57 0.4 MG Polyethylene (Miralax Powder Packet) 17 gm DAILY PRN PO 12/22/16 16:30 01/21/17 16:29 Aspirin (Ecotrin Tab) 81 mg QAM PO 12/23/16 09:00 01/22/17 08:59 12/26/16 07:48 81 MG Metoprolol Tartrate (Lopressor Iv) 5 mg Q6 PRN IV 12/22/16 19:00 01/21/17 18:59 Vancomycin HCl (Consult) 1 ea UD PRN N/A 12/22/16 19:51 01/21/17 19:50 Piperacillin Sod/ Tazobactam Sod (Consult) 1 ea UD PRN N/A 12/22/16 20:00 01/21/17 19:59 Piperacillin Sod/ Tazobactam Sod 4.5 gm/Dextrose 120 ml @ 30 mls/hr Q8H IV 12/23/16 00:00 01/01/17 00:00 12/26/16 07:55 30 MLS/HR Heparin Sodium (Porcine) (Heparin 10 Unit/ ml 5 ml Flush) 5 ml PRN PRN FLUSH 12/22/16 23:45 01/21/17 23:44 12/26/16 12:13 5 ML Vancomycin HCl 1000 mg/Sodium Chloride 270 ml @ 125 mls/hr Q12@0900,2100 IV 12/23/16 09:00 01/02/17 08:59 12/26/16 08:57 125 MLS/HR Ranitidine HCl (zANTac TAB) 150 mg DAILY PO 12/24/16 10:00 01/23/17 09:59 12/26/16 07:48 150 MG Potassium/ Phosphorus/Sodium (Phospha 250 Neutral 155-852-130 Mg) 1 tab BID PO 12/25/16 09:00 01/24/17 08:59 12/26/16 07:49 1 TAB Furosemide 20 mg/ Syringe 2 ml @ 4 mls/min Q12 IV 12/25/16 21:00 01/24/17 20:59 12/26/16 08:54 4 MLS/MIN Tramadol HCl (Ultram Tab) 50 mg Q4H PRN PO 12/25/16 11:00 01/24/17 10:59 12/26/16 10:24 50 MG Albuterol/ Ipratropium (Duoneb) 3 ml Q6R INH 12/25/16 15:00 01/24/17 14:59 12/26/16 07:13 3 ML Warfarin Sodium (Coumadin Tab) 2.5 mg DAILY@1600 PO 12/26/16 16:00 01/23/17 15:59 UNV Magnesium Oxide (Mag-Ox Tab) 400 mg QAM PO 12/27/16 09:00 01/26/17 08:59 Potassium Chloride (Klor-Con Tab) 20 meq QAM PO 12/27/16 09:00 01/26/17 08:59 Assessment and Plan Assessment and Plan: ASSESSMENT: Ms. Paige Ely is an 86 year old woman with PMH significant for PE, CAD, DVT, chronic superficial femoral thrombus & chronic anticoagulation on Coumadin who was admitted on 12/22/16 for sepsis secondary to right lower extremity cellulitis. Her cellulitis is responding slowly to antibiotic therapy x2. Given that her pain is still poorly controlled and that the edema is not resolving as quickly as expected, we will proceed with right LE MRI today. Given her new onset cough and hypoxia, chest radiograph will be ordered. PLAN: Sepsis 2/2 right lower extremity cellulitis No signs of shock, BP preserved, HR in 70-80s RLE erythema shows mild improvement. Pain is worse today. Underlying chronic DVT may contribute to minimal improvement in LE edema No signs of joint involvement on joint aspiration No signs of infected knee joint or prepatellar bursa Continue IV Vancomycin and Pip/Tazo Discontinue IV Clindamycin Pain control with tramadol 50 mg PRN q4hrs and tylenol 650 mg PRN q4hrs LE U/S on 12/22/16: Age-indeterminate but likely chronic nonocclusive thrombus within the right superficial femoral vein- improved compared to 2013 Order placed for right LE MRI Consult wound care for right LE Cough with hypoxemia Order bedside CXR due to limited ability to stand Currently on IV Vancomycin and Pip/Tazo Continue Albuterol/ Ipratropium (Duoneb) 3 mL Q6hr Hypokalemia, Hypomagnesemia, hypophosphatemia Replete with Potassium/ Phosphorus/Sodium (Phospha 250 Neutral 155-852-130 Mg ) 1 tab po BID Replete with Magnesium Oxide (Mag-Ox Tab) 400 mg po QAM Replete with Potassium Chloride (Klor-Con Tab) 20 meq po QAM Elevated CK: mild rhabdomyolysis, non traumatic CK downtrending appropriately 4198 --> 664 No signs of compartment syndrome in RLE currently, monitor closely MARTÍN on CKD stage III Cr down to 1.0, adequate UOP Continue IV Lasix 20 mg q12hr Hill catheter remains in place AAA, 6cm No intervention at this time DVT/PE with h/o IVC filter: Continue Coumadin 5mg CAD with elevated troponin Likely due to MARTÍN, not cardiac, given that she has no chest pain and no EKG changes (paced) Continue home aspirin Continue Plavix Dispo Medical floor Plan for inpatient rehabilitation at discharge
--- NOTE | 2016-12-26 14:42 | DIAGNOSTIC IMAGING REPORT ---
CHEST ONE VIEW PORTABLE HISTORY: 86 years-old Female Incresased cough, hypoxia acute cough with hypoxia. COMPARISON: Chest radiograph 12/22/2016 TECHNIQUE: Portable upright AP view of the chest FINDINGS: Cardiac silhouette is again enlarged. There is tortuosity and atherosclerosis of the aorta. There is no pneumothorax. Right internal jugular central venous catheter is again noted and stable positioning. Right subclavian pacer is noted with leads intact. There is been interval development of pulmonary vascular congestion with background interstitial opacities, bibasilar alveolar opacities with small pleural effusions. Reverse right shoulder arthroplasty. Multiple calcifications are seen about the left shoulder which are nonspecific. IMPRESSION: 1. Cardiomegaly with development of mild pulmonary edema and bibasilar opacities suggesting atelectasis or pneumonia. 2. Small bilateral pleural effusions The above report was generated using voice recognition software. It may contain grammatical, syntax or spelling errors. Electronically signed by: Giancarlo Desai M.D. 12/26/2016 2:40 PM Dictated Date/Time: 12/26/2016 2:38 PM
[2016-12-26] MEDS: WARFARIN SOD 2.5 MG TAB PO SCH (15:39)
--- NOTE | 2016-12-26 16:13 | Progress Note ---
Subjective Date of Service: Dec 26, 2016. Subjective Pt evaluation today including: conversation w/ patient, conversation w/ family , physical exam, lab review, review of inpatient medication list Pain: increased pain in right lower extremity PO Intake: adequate Voiding: viera catheter in place patient continues to diurese with Lasix 20 q12 increased pain in right lower leg, still with swelling less erythema tolerating Ultram for pain control more of a cough, difficult time getting up sputum chest x-ray with congestion, bibasilar atelectasis discussed getting MRI of leg but patient had gotten a CT that did not show abscess Problem List Medical Problems: (1) Acute renal failure Status: Acute (2) Cellulitis Status: Acute (3) NSTEMI (non-ST elevated myocardial infarction) Status: Acute (4) Right-sided chest pain Status: Acute (5) Supratherapeutic INR Status: Acute Review of Systems Constitutional: + weakness, + fatigue Respiratory: + cough, + shortness of breath Musculoskeletal: + joint pain (ankle), + swelling (right leg) Skin: + rash (right lower leg) All Other Systems: Reviewed and Negative Medications Current Inpatient Medications Medications (Trade) Dose Ordered Sig/Darrick Route Start Time Stop Time Status Last Admin Dose Admin Amlodipine Besylate (Norvasc Tab) 5 mg BID PO 12/22/16 21:00 01/21/17 20:59 Future Hold Clopidogrel Bisulfate (plAVix TAB) 75 mg DAILY PO 12/23/16 09:00 01/22/17 08:59 12/26/16 07:48 75 MG Gabapentin (Neurontin Tab) 600 mg TID PO 12/22/16 21:00 01/21/17 20:59 Future hold 12/26/16 14:05 600 MG Isosorbide Mononitrate (Imdur Ext Rel Tab) 90 mg DAILY PO 12/23/16 09:00 01/22/17 08:59 Future hold 12/26/16 07:49 90 MG Metoprolol Succinate (Toprol Xl Tab) 25 mg DAILY PO 12/23/16 09:00 01/22/17 08:59 Future hold 12/26/16 07:49 25 MG Multivitamins (Multivitamin Tab) 1 tab DAILY PO 12/23/16 09:00 01/22/17 08:59 Future hold 12/26/16 07:49 1 TAB Oxcarbazepine (Trileptal Tab) 150 mg QID PO 12/22/16 17:00 01/21/17 16:59 Future hold 12/26/16 13:14 150 MG Ranolazine (Ranexa ER Tab) 500 mg BID PO 12/22/16 21:00 01/21/17 20:59 Future hold 12/26/16 07:49 500 MG Acetaminophen (Tylenol Tab) 650 mg Q4H PRN PO 12/22/16 16:30 01/21/17 16:29 12/25/16 16:14 650 MG Magnesium Hydroxide (Milk Of Magnesia Susp) 30 ml Q12H PRN PO 12/22/16 16:30 01/21/17 16:29 Ondansetron HCl (Zofran Inj) 4 mg Q6H PRN IV 12/22/16 16:30 01/21/17 16:29 Nitroglycerin (Nitrostat Tab) 0.4 mg UD PRN SL 12/22/16 16:30 01/21/17 16:29 Future hold 12/23/16 17:57 0.4 MG Polyethylene (Miralax Powder Packet) 17 gm DAILY PRN PO 12/22/16 16:30 01/21/17 16:29 Aspirin (Ecotrin Tab) 81 mg QAM PO 12/23/16 09:00 01/22/17 08:59 12/26/16 07:48 81 MG Metoprolol Tartrate (Lopressor Iv) 5 mg Q6 PRN IV 12/22/16 19:00 01/21/17 18:59 Vancomycin HCl (Consult) 1 ea UD PRN N/A 12/22/16 19:51 01/21/17 19:50 Piperacillin Sod/ Tazobactam Sod (Consult) 1 ea UD PRN N/A 12/22/16 20:00 01/21/17 19:59 Piperacillin Sod/ Tazobactam Sod 4.5 gm/Dextrose 120 ml @ 30 mls/hr Q8H IV 12/23/16 00:00 01/01/17 00:00 12/26/16 15:39 30 MLS/HR Heparin Sodium (Porcine) (Heparin 10 Unit/ ml 5 ml Flush) 5 ml PRN PRN FLUSH 12/22/16 23:45 01/21/17 23:44 12/26/16 12:13 5 ML Vancomycin HCl 1000 mg/Sodium Chloride 270 ml @ 125 mls/hr Q12@0900,2100 IV 12/23/16 09:00 01/02/17 08:59 12/26/16 08:57 125 MLS/HR Ranitidine HCl (zANTac TAB) 150 mg DAILY PO 12/24/16 10:00 01/23/17 09:59 12/26/16 07:48 150 MG Potassium/ Phosphorus/Sodium (Phospha 250 Neutral 155-852-130 Mg) 1 tab BID PO 12/25/16 09:00 01/24/17 08:59 12/26/16 07:49 1 TAB Furosemide 20 mg/ Syringe 2 ml @ 4 mls/min Q12 IV 12/25/16 21:00 01/24/17 20:59 12/26/16 08:54 4 MLS/MIN Tramadol HCl (Ultram Tab) 50 mg Q4H PRN PO 12/25/16 11:00 01/24/17 10:59 12/26/16 14:10 50 MG Albuterol/ Ipratropium (Duoneb) 3 ml Q6R INH 12/25/16 15:00 01/24/17 14:59 12/26/16 14:25 3 ML Warfarin Sodium (Coumadin Tab) 2.5 mg DAILY@16 PO 12/26/16 16:00 01/25/17 15:59 12/26/16 15:39 2.5 MG Magnesium Oxide (Mag-Ox Tab) 400 mg QAM PO 12/27/16 09:00 01/26/17 08:59 Potassium Chloride (Klor-Con Tab) 20 meq QAM PO 12/27/16 09:00 01/26/17 08:59 Guaifenesin (Mucinex Contr Rel Tab) 600 mg Q12 PO 12/26/16 21:00 01/25/17 20:59 Objective Vital Signs Date Time Temp Pulse Resp B/P (MAP) Pulse Ox O2 Delivery O2 Flow Rate FiO2 12/26/16 14:48 37.0 70 20 112/73 (86) 97 Nasal Cannula 3.0 12/26/16 14:25 84 18 94 Nasal Cannula 3.0 12/26/16 10:58 67 18 124/70 (88) 97 Nasal Cannula 3.0 12/26/16 08:00 92 Nasal Cannula 3.0 12/26/16 07:13 84 18 94 Nasal Cannula 3.0 12/26/16 07:09 36.7 71 22 151/82 (105) 92 Nasal Cannula 3.0 12/26/16 02:34 84 18 93 Nasal Cannula 3.0 12/26/16 00:00 Nasal Cannula 3.0 12/25/16 23:31 36.6 78 20 153/78 (103) 94 Room Air 12/25/16 19:15 80 18 93 Nasal Cannula 3.0 12/25/16 17:54 76 18 95 Nasal Cannula 4.0 Physical Exam General Appearance: WD/WN, no apparent distress Eyes: normal inspection, EOMI, sclerae normal ENT: normal ENT inspection, hearing grossly normal, pharynx normal Neck: supple, no adenopathy, no JVD, trachea midline Respiratory/Chest: chest non-tender, lungs clear, normal breath sounds, no respiratory distress, no accessory muscle use, + decreased breath sounds (bases) Cardiovascular: regular rate, rhythm, no edema, no gallop, no JVD, no murmur Abdomen: normal bowel sounds, non tender, soft, no organomegaly Extremities: normal range of motion, no calf tenderness, normal capillary refill, pelvis stable Neurologic/Psychiatric: misdraw hand II-XII nml as tested, alert, normal mood/affect, oriented x 3, + motor weakness (generalized) Skin: warm/dry, no rash, + rash (erythema right leg, less intense) Laboratory Results Last 24 Hours Test 12/26/16 07:22 12/26/16 07:26 12/26/16 11:12 White Blood Count 10.36 K/uL Red Blood Count 3.37 M/uL Hemoglobin 9.5 g/dL Hematocrit 29.8 % Mean Corpuscular Volume 88.4 fL Mean Corpuscular Hemoglobin 28.2 pg Mean Corpuscular Hemoglobin Concent 31.9 g/dl Platelet Count 143 K/uL Mean Platelet Volume 9.9 fL Neutrophils (%) (Auto) 81.6 % Lymphocytes (%) (Auto) 8.0 % Monocytes (%) (Auto) 8.7 % Eosinophils (%) (Auto) 0.8 % Basophils (%) (Auto) 0.2 % Neutrophils # (Auto) 8.46 K/uL Lymphocytes # (Auto) 0.83 K/uL Monocytes # (Auto) 0.90 K/uL Eosinophils # (Auto) 0.08 K/uL Basophils # (Auto) 0.02 K/uL RDW Standard Deviation 48.3 fL RDW Coefficient of Variation 14.8 % Immature Granulocyte % (Auto) 0.7 % Immature Granulocyte # (Auto) 0.07 K/uL Dohle Bodies 1+ Prothrombin Time 34.7 SECONDS Prothromb Time International Ratio 3.1 Sodium Level 138 mmol/L Potassium Level 3.3 mmol/L Chloride Level 102 mmol/L Carbon Dioxide Level 29 mmol/L Anion Gap 7.0 mmol/L Blood Urea Nitrogen 17 mg/dl Creatinine 1.10 mg/dl Est Creatinine Clear Calc Drug Dose 40.4 ml/min Estimated GFR () 53.4 Estimated GFR (Non- 46.1 BUN/Creatinine Ratio 15.5 Random Glucose 112 mg/dl Calcium Level 8.8 mg/dl Phosphorus Level 2.3 mg/dl Magnesium Level 1.7 mg/dl Bedside Glucose 115 mg/dl 143 mg/dl Assessment and Plan - Sepsis from right lower extremity cellulitis sepsis resolved mobilizing fluids with Lasix 20mg IV q12, responding very well continue Vanco and Zosyn, no improvement in swelling and pain today so will not switch to PO antibiotics knee culture with MSSA and Group C strep WBC normal and Cr normal no signs of joint involvement on joint aspiration chronic DVT - Cough: non-productive, some mild congestion on CXR no wheezing on exam, decreased breath sounds in bases suspect it is due to atelectasis flutter valve, nebulizers - Elevated CK: mild rhabdomyolysis, non traumatic CK down to 600's yesterday, will not check further no signs of compartment syndrome - MARTÍN on CKD stage III: Cr normal, adequate UO, actually self diuresing today Lasix 20mg IV q12 to help with diuresis - AAA: quite large at 6cm, ICU discussed results with patient, no intervention at this time - DVT/PE with h/o IVC filter: continue Coumadin for now, INR therapeutic - CAD with elevated troponin: due to MARTÍN, no chest pain, no EKG changes (paced) continue aspirin and Plavix elevated troponin is demand ischemia - Anemia and thrombocytopenia: suspect it is due to infection, will monitor daily platelets normal, H/H stable continue PT/OT
[2016-12-26] MEDS: ACETAMINOPHEN 325 MG TAB PO PRN (17:06)
[2016-12-26] MEDS: GUAIFENESIN 600 MG TABCR PO SCH (21:12)
[2016-12-27] VITALS (12 sets, daily range): BP systolic 116–132; BP diastolic 72–81; PULSE 59–81; TEMP 36.4–37.4; O2SAT 85–98
[2016-12-27] MEDS: PIPERACILL/TAZOBAC IV 4.5 GM in DEXTROSE 5% 100ML IV SCH (00:33)
[2016-12-27] MEDS: ALBUT/IPRATROP 3MG/0.5MG NEB 3 ML VIAL INH SCH ×4 (01:44→19:14)
[2016-12-27 06:15] LABS: BASO % 0.2 %; BASO ABS # 0.02 K/uL (0-0.2); COMPLETE YES; EOS % 5.9 %; HEMATOCRIT 28.4 % (37-47); IG% 0.7 %; LYMPH % 10.1 %; LYMPH ABS # 0.88 K/uL (1.2-3.4); MEAN CELL VOLUME 88.5 fL (80-100); MEAN CORPUSCULAR HEMOGLOBIN 29.3 pg (25-34); MEAN CORPUSCULAR HGB CONC 33.1 g/dl (32-36); MEAN PLATELET VOLUME 10.5 fL (7.4-10.4); MONO % 8.6 %; NEUT % 74.5 %; PLATELET COUNT 159 K/uL (130-400); RED BLOOD COUNT 3.21 M/uL (4.2-5.4); WHITE BLOOD COUNT 8.69 K/uL (4.8-10.8)
[2016-12-27 06:39] LABS: INR 3.2 (0.9-1.1); PROTHROMBIN TIME (PATIENT) 36.1 SECONDS (9.0-12.0)
[2016-12-27 06:49] LABS: BUN/CREATININE RATIO 19.5 (10-20); CALCIUM 8.8 mg/dl (8.5-10.1); MAGNESIUM 1.5 mg/dl (1.8-2.4)
[2016-12-27 06:52] LABS: PHOSPHORUS 2.1 mg/dl (2.5-4.9)
[2016-12-27] MEDS: TRAMADOL HCL 50 MG TAB PO PRN ×2 (07:46→15:50)
[2016-12-27] MEDS: ASPIRIN 81 MG ECTAB PO SCH (07:51)
[2016-12-27] MEDS: ISOSORBIDE MONONITRATE 30 MG TABCR PO SCH (07:52)
[2016-12-27] MEDS: MULTIVITAMIN TAB PO SCH (07:54)
[2016-12-27] MEDS: GUAIFENESIN 600 MG TABCR PO SCH ×2 (07:54→21:48)
[2016-12-27] MEDS: GABAPENTIN 600 MG TAB PO SCH ×3 (07:55→21:48)
[2016-12-27] MEDS: RANOLAZINE 500 MG ER TAB PO SCH ×2 (07:56→21:10)
[2016-12-27] MEDS: POT PHOSPHATE MONOBASIC W/ SOD TAB PO SCH ×2 (07:56→21:10)
[2016-12-27] MEDS: CLOPIDOGREL BISULFATE 75 MG TAB PO SCH (07:56)
[2016-12-27] MEDS: OXCARBAZEPINE 150 MG TAB PO SCH ×4 (07:57→21:10)
[2016-12-27] MEDS: METOPROLOL SUCC 25MG EXT REL TAB PO SCH (07:57)
[2016-12-27] MEDS: RANITIDINE HCL 150 MG TAB PO SCH (07:57)
[2016-12-27] MEDS: FUROSEMIDE INJ 20 MG in SYRINGE 0 ML IV SCH (08:01)
[2016-12-27] MEDS ORDERED: VANCOMYCIN TROUGH ONE (08:30)
[2016-12-27] MEDS ORDERED: POTASSIUM CHLORIDE 20 MEQ TABCR PO SCH (09:00)
[2016-12-27] MEDS ORDERED: MAGNESIUM OXIDE 400 MG TAB PO SCH (09:00)
[2016-12-27] MEDS: AMOXICILLIN/CLAVULANATE TAB 875 MG TAB PO SCH ×2 (09:35→17:11)
[2016-12-27] MEDS: POTASSIUM CHLORIDE 20 MEQ TABCR PO SCH ×3 (09:35→21:09)
[2016-12-27] MEDS: VANCOMYCIN INJ 1,000 MG in SODIUM CHLORIDE 0.9% 250ML 250 ML IV SCH ×2 (10:37→21:08)
[2016-12-27] MEDS: MAGNESIUM OXIDE 400 MG TAB PO SCH ×2 (10:39→21:09)
[2016-12-27] MEDS: OXYCODONE HCL IR 5 MG TAB (IMMEDIATE RELEASE) PO PRN ×2 (11:31→17:31)
[2016-12-27] MEDS ORDERED: SODIUM CHLORIDE 0.65% NA SOLN 45 ML (OCEAN) PRN (11:45)
--- NOTE | 2016-12-27 12:01 | Pharmacy Progress Note ---
Pharmacy Abx Dose Short Note Date of Service Dec 27, 2016. Assessment & Plan Assessment 86 year old female receiving vancomycin for treatment of RLE cellulitis Day # 6 of antimicrobial therapy. Zosyn discontinued changed to augmentin 875 BID. Per physician concerned by how the right lower extremity looks/possibly worsening and wants to keep vancomycin. Plan Vancomycin * Trough level of 20.7 mcg/mL is slightly subtherapeutic- however trough was drawn ~50 minutes early * Will continue current dose of 1000 mg q12H but need to monitor closely for accumulation. * Goal trough level 15-20 mcg/mL * Trough level ordered for 12/29 @ 0830 Pharmacy will continue to follow and will adjust dose/frequency as necessary. Thank you.
--- NOTE | 2016-12-27 13:01 | Medical Student: [facility] ---
Med Student Progress Note Date of Service Dec 27, 2016. Subjective Pt evaluation today including: conversation w/ patient, conversation w/ family , physical exam, chart review, lab review, review of studies Voiding: viera catheter in place Ms. Paige Ely is an 86 year old woman with PMH significant for PE, CAD, DVT, chronic superficial femoral thrombus & chronic anticoagulation on Coumadin who was admitted on 12/22/16 for sepsis secondary to right lower extremity cellulitis. Hospital Day #5: No acute events overnight. She reports improvement in her breathing and dry cough. She denies sputum. She reports the pain is similar to yesterday from the ankle to about mid-tibia and Ultram is not adequately covering her pain. Her leg is dressed with gauze and her blisters have been draining. She reports some blood clots in her nasal passages from the nasal canula. She has not worked with PT/OT yet due to pain. She has been using incentive spirometer intermittently. Trial of oxygen saturation without supplemental oxygen was performed with doctor in the room. Saturation was 90-92% . Supplemental oxygen will be discontinued. She continued to have good urine output on Lasix 20mg Q12. We discussed that we will not procede with MRI given that she already had RLE CT that did not show any abscess. Review of Systems Constitutional: + weakness, + fatigue, No fever, No chills Eyes: No worsening of vision, No redness ENT: + nasal symptoms (blood clots/ irritation ), + sore throat Respiratory: + cough, No sputum, No wheezing, No shortness of breath, No dyspnea on exertion, No dyspnea at rest Cardiac: No chest pain, No palpitations Abdomen: No pain, No nausea, No vomiting, No diarrhea, No constipation Musculoskeletal: No muscle pain, No calf pain Female : No dysuria (catheter in place ), No urinary frequency Neurologic: + weakness, No numbness/tingling Psychiatric: No depression symptoms, No anxiety Heme: + clotting problems (chronic DVT in right LE ), No abnormal bleeding/ bruising Endo: + fatigue, No excessive thirst, No excessive urination Skin: + rash (RLE ), No itch Objective Vital Signs Date Time Temp Pulse Resp B/P (MAP) Pulse Ox O2 Delivery O2 Flow Rate FiO2 12/27/16 08:44 Nasal Cannula 2.0 12/27/16 08:00 96 Nasal Cannula 2.0 12/27/16 07:17 36.7 63 20 116/78 (91) 96 Nasal Cannula 2.0 12/27/16 07:12 64 16 93 Nasal Cannula 3.0 12/27/16 01:44 68 16 98 Nasal Cannula 3.0 12/27/16 00:11 36.4 62 16 119/76 (90) 96 2.0 12/27/16 00:00 97 Nasal Cannula 2.0 Humidified Oxygen 12/26/16 20:31 86 18 94 Nasal Cannula 3.0 12/26/16 20:00 97 Nasal Cannula 3.0 Humidified Oxygen 12/26/16 16:00 97 Nasal Cannula 3.0 12/26/16 14:48 37.0 70 20 112/73 (86) 97 Nasal Cannula 3.0 12/26/16 14:25 84 18 94 Nasal Cannula 3.0 Physical Exam General Appearance: WD/WN, no apparent distress Eyes: bilateral eyes normal inspection ENT: normal ENT inspection, hearing grossly normal Neck: supple, no adenopathy, trachea midline Respiratory/Chest: chest non-tender, lungs clear, no respiratory distress, no accessory muscle use, + decreased breath sounds (at bilateral bases. no wheezing. ) Cardiovascular: regular rate, rhythm, no edema, no gallop, no murmur Abdomen: normal bowel sounds, non tender, soft, no organomegaly Extremities: + pertinent finding (RLE: significant tenderness from mid-tibia to ankle, erythematous circumfrentially, blisters in various stages anterior and posterior, significant edema ) Neurologic/Psychiatric: no motor/sensory deficits, alert, normal mood/affect, oriented x 3 Skin: normal color, warm/dry, no rash Lymphatic: no adenopathy Laboratory Results Last 24 Hours Test 12/26/16 16:18 12/27/16 05:52 12/27/16 07:35 12/27/16 08:24 Bedside Glucose 107 mg/dl 108 mg/dl White Blood Count 8.69 K/uL Red Blood Count 3.21 M/uL Hemoglobin 9.4 g/dL Hematocrit 28.4 % Mean Corpuscular Volume 88.5 fL Mean Corpuscular Hemoglobin 29.3 pg Mean Corpuscular Hemoglobin Concent 33.1 g/dl Platelet Count 159 K/uL Mean Platelet Volume 10.5 fL Neutrophils (%) (Auto) 74.5 % Lymphocytes (%) (Auto) 10.1 % Monocytes (%) (Auto) 8.6 % Eosinophils (%) (Auto) 5.9 % Basophils (%) (Auto) 0.2 % Neutrophils # (Auto) 6.47 K/uL Lymphocytes # (Auto) 0.88 K/uL Monocytes # (Auto) 0.75 K/uL Eosinophils # (Auto) 0.51 K/uL Basophils # (Auto) 0.02 K/uL RDW Standard Deviation 48.0 fL RDW Coefficient of Variation 14.8 % Immature Granulocyte % (Auto) 0.7 % Immature Granulocyte # (Auto) 0.06 K/uL Prothrombin Time 36.1 SECONDS Prothromb Time International Ratio 3.2 Sodium Level 136 mmol/L Potassium Level 3.0 mmol/L Chloride Level 100 mmol/L Carbon Dioxide Level 31 mmol/L Anion Gap 5.0 mmol/L Blood Urea Nitrogen 20 mg/dl Creatinine 1.00 mg/dl Est Creatinine Clear Calc Drug Dose 44.4 ml/min Estimated GFR () 59.9 Estimated GFR (Non- 51.7 BUN/Creatinine Ratio 19.5 Random Glucose 107 mg/dl Calcium Level 8.8 mg/dl Phosphorus Level 2.1 mg/dl Magnesium Level 1.5 mg/dl Total Bilirubin 0.6 mg/dl Direct Bilirubin 0.2 mg/dl Aspartate Amino Transf (AST/SGOT) 46 U/L Alanine Aminotransferase (ALT/SGPT) 32 U/L Alkaline Phosphatase 102 U/L Total Protein 6.2 gm/dl Albumin 1.8 gm/dl Vancomycin Level Trough 20.7 mcg/ml Test 12/27/16 11:14 Bedside Glucose 148 mg/dl Medications Current Inpatient Medications Medications (Trade) Dose Ordered Sig/Darrick Route Start Time Stop Time Status Last Admin Dose Admin Amlodipine Besylate (Norvasc Tab) 5 mg BID PO 12/22/16 21:00 01/21/17 20:59 Future Hold Clopidogrel Bisulfate (plAVix TAB) 75 mg DAILY PO 12/23/16 09:00 01/22/17 08:59 12/27/16 07:56 75 MG Gabapentin (Neurontin Tab) 600 mg TID PO 12/22/16 21:00 01/21/17 20:59 Future hold 12/27/16 07:55 600 MG Isosorbide Mononitrate (Imdur Ext Rel Tab) 90 mg DAILY PO 12/23/16 09:00 01/22/17 08:59 Future hold 12/27/16 07:52 90 MG Metoprolol Succinate (Toprol Xl Tab) 25 mg DAILY PO 12/23/16 09:00 01/22/17 08:59 Future hold 12/27/16 07:57 25 MG Multivitamins (Multivitamin Tab) 1 tab DAILY PO 12/23/16 09:00 01/22/17 08:59 Future hold 12/27/16 07:54 1 TAB Oxcarbazepine (Trileptal Tab) 150 mg QID PO 12/22/16 17:00 01/21/17 16:59 Future hold 12/27/16 07:57 150 MG Ranolazine (Ranexa ER Tab) 500 mg BID PO 12/22/16 21:00 01/21/17 20:59 Future hold 12/27/16 07:56 500 MG Acetaminophen (Tylenol Tab) 650 mg Q4H PRN PO 12/22/16 16:30 01/21/17 16:29 12/26/16 17:06 650 MG Magnesium Hydroxide (Milk Of Magnesia Susp) 30 ml Q12H PRN PO 12/22/16 16:30 01/21/17 16:29 Ondansetron HCl (Zofran Inj) 4 mg Q6H PRN IV 12/22/16 16:30 01/21/17 16:29 Nitroglycerin (Nitrostat Tab) 0.4 mg UD PRN SL 12/22/16 16:30 01/21/17 16:29 Future hold 12/23/16 17:57 0.4 MG Polyethylene (Miralax Powder Packet) 17 gm DAILY PRN PO 12/22/16 16:30 01/21/17 16:29 Aspirin (Ecotrin Tab) 81 mg QAM PO 12/23/16 09:00 01/22/17 08:59 12/27/16 07:51 81 MG Metoprolol Tartrate (Lopressor Iv) 5 mg Q6 PRN IV 12/22/16 19:00 01/21/17 18:59 Vancomycin HCl (Consult) 1 ea UD PRN N/A 12/22/16 19:51 01/21/17 19:50 Heparin Sodium (Porcine) (Heparin 10 Unit/ ml 5 ml Flush) 5 ml PRN PRN FLUSH 12/22/16 23:45 01/21/17 23:44 12/27/16 05:46 5 ML Vancomycin HCl 1000 mg/Sodium Chloride 270 ml @ 125 mls/hr Q12@0900,2100 IV 12/23/16 09:00 01/02/17 08:59 12/27/16 10:37 125 MLS/HR Ranitidine HCl (zANTac TAB) 150 mg DAILY PO 12/24/16 10:00 01/23/17 09:59 12/27/16 07:57 150 MG Potassium/ Phosphorus/Sodium (Phospha 250 Neutral 155-852-130 Mg) 1 tab BID PO 12/25/16 09:00 01/24/17 08:59 12/27/16 07:56 1 TAB Tramadol HCl (Ultram Tab) 50 mg Q4H PRN PO 12/25/16 11:00 01/24/17 10:59 12/27/16 07:46 50 MG Albuterol/ Ipratropium (Duoneb) 3 ml Q6R INH 12/25/16 15:00 01/24/17 14:59 12/27/16 07:11 3 ML Warfarin Sodium (Coumadin Tab) 2.5 mg DAILY@16 PO 12/26/16 16:00 01/25/17 15:59 12/26/16 15:39 2.5 MG Guaifenesin (Mucinex Contr Rel Tab) 600 mg Q12 PO 12/26/16 21:00 01/25/17 20:59 12/27/16 07:54 600 MG Magnesium Oxide (Mag-Ox Tab) 400 mg BID PO 12/27/16 09:00 01/26/17 08:59 12/27/16 10:39 400 MG Potassium Chloride (Klor-Con Tab) 20 meq TID PO 12/27/16 09:00 01/26/17 08:59 12/27/16 09:35 20 MEQ Amoxicillin/ Clavulanate Potassium (Augmentin Tab) 875 mg BIDM PO 12/27/16 08:00 01/06/17 07:59 12/27/16 09:35 875 MG Oxycodone HCl (Roxicodone Immediate Rel Tab) 5 mg Q6 PRN PO 12/27/16 11:00 9/22/17 10:59 12/27/16 11:31 5 MG Sodium Chloride ([place] Nasal [place]) 2 sprays Q2H PRN NA 12/27/16 11:45 01/26/17 11:44 Assessment and Plan Assessment and Plan: ASSESSMENT: Ms. Paige Ely is an 86 year old woman with PMH significant for PE, CAD, DVT, chronic superficial femoral thrombus & chronic anticoagulation on Coumadin who was admitted on 12/22/16 for sepsis secondary to right lower extremity cellulitis. Her cellulitis is responding slowly to antibiotic therapy x2. PLAN: Sepsis 2/2 right lower extremity cellulitis Sepsis has resolved RLE erythema shows mild improvement. Pain is worse today. Underlying chronic DVT may contribute to minimal improvement in LE edema No signs of joint involvement on joint aspiration Start po Amoxicillin/ Clavulanate Potassium (Augmentin Tab) 875 mg po BID Continue IV Vancomycin Discontinue IV Pip/Tazo Discontinue IV Clindamycin LE U/S on 12/22/16: Age-indeterminate but likely chronic nonocclusive thrombus within the right superficial femoral vein- improved compared to 2013 Consult wound care for right LE Pain control with tramadol 50 mg PRN q4hrs and tylenol 650 mg PRN q4hrs Start Oxycodone HCl (Roxicodone Immediate Rel Tab) 5 mg po Q6 PRN Non-productive cough with hypoxemia CXR 12/26/16: mild congestion Likely due to atelectasis Continue Albuterol/ Ipratropium (Duoneb) 3 mL Q6hr Continue flutter valve and incentive spirometer Hypokalemia, Hypomagnesemia, hypophosphatemia Replete with Potassium/ Phosphorus/Sodium (Phospha 250 Neutral 155-852-130 Mg ) 1 tab po BID Replete with Magnesium Oxide (Mag-Ox Tab) 400 mg po QAM Replete with Potassium Chloride (Klor-Con Tab) 20 meq po QAM Elevated CK: mild rhabdomyolysis, non traumatic CK downtrending appropriately 4198 --> 664 No signs of compartment syndrome in RLE currently, monitor closely MARTÍN on CKD stage III Cr down to 1.0, adequate UOP Viera catheter remains in place Discontinue IV Lasix 20 mg q12hr AAA, 6cm No intervention at this time DVT/PE with h/o IVC filter: Continue Coumadin 5mg INR in therapeutic range CAD with elevated troponin Likely due to MARTÍN, not cardiac, given that she has no chest pain and no EKG changes (paced) Continue home aspirin Continue Plavix Anemia and thrombocytopenia suspect it is due to infection, will monitor daily platelets normal, H/H stable Dispo Medical floor Continue PT/OT Plan for inpatient rehabilitation at discharge
--- NOTE | 2016-12-27 14:46 | Progress Note ---
Subjective Date of Service: Dec 27, 2016. Subjective Pt evaluation today including: conversation w/ patient, conversation w/ family (son at the bedside), physical exam, lab review, review of inpatient medication list Pain: right foot, less pain in leg PO Intake: improving Voiding: viera catheter in place patient c/o increased pain in right foot this AM was trying to participate in OT this AM, caused increased pain, agitated also, c/o some dry blood in nose, some small clots when blowing removed oxygen and saturations were 90-92% while awake later in the day she desaturated while sleeping, oxygen placed again reviewed lab work, potassium, magnesium and phosphorus low, all replaced Problem List Medical Problems: (1) Acute renal failure Status: Acute (2) Cellulitis Status: Acute (3) NSTEMI (non-ST elevated myocardial infarction) Status: Acute (4) Right-sided chest pain Status: Acute (5) Supratherapeutic INR Status: Acute Review of Systems Constitutional: + weakness, + fatigue Respiratory: + cough Musculoskeletal: + joint pain (right ankle), + swelling (right foot and ankle) All Other Systems: Reviewed and Negative Medications Current Inpatient Medications Medications (Trade) Dose Ordered Sig/Darrick Route Start Time Stop Time Status Last Admin Dose Admin Amlodipine Besylate (Norvasc Tab) 5 mg BID PO 12/22/16 21:00 01/21/17 20:59 Future Hold Clopidogrel Bisulfate (plAVix TAB) 75 mg DAILY PO 12/23/16 09:00 01/22/17 08:59 12/27/16 07:56 75 MG Gabapentin (Neurontin Tab) 600 mg TID PO 12/22/16 21:00 01/21/17 20:59 Future hold 12/27/16 14:06 600 MG Isosorbide Mononitrate (Imdur Ext Rel Tab) 90 mg DAILY PO 12/23/16 09:00 01/22/17 08:59 Future hold 12/27/16 07:52 90 MG Metoprolol Succinate (Toprol Xl Tab) 25 mg DAILY PO 12/23/16 09:00 01/22/17 08:59 Future hold 12/27/16 07:57 25 MG Multivitamins (Multivitamin Tab) 1 tab DAILY PO 12/23/16 09:00 01/22/17 08:59 Future hold 12/27/16 07:54 1 TAB Oxcarbazepine (Trileptal Tab) 150 mg QID PO 12/22/16 17:00 01/21/17 16:59 Future hold 12/27/16 13:03 150 MG Ranolazine (Ranexa ER Tab) 500 mg BID PO 12/22/16 21:00 01/21/17 20:59 Future hold 12/27/16 07:56 500 MG Acetaminophen (Tylenol Tab) 650 mg Q4H PRN PO 12/22/16 16:30 01/21/17 16:29 12/26/16 17:06 650 MG Magnesium Hydroxide (Milk Of Magnesia Susp) 30 ml Q12H PRN PO 12/22/16 16:30 01/21/17 16:29 Ondansetron HCl (Zofran Inj) 4 mg Q6H PRN IV 12/22/16 16:30 01/21/17 16:29 Nitroglycerin (Nitrostat Tab) 0.4 mg UD PRN SL 12/22/16 16:30 01/21/17 16:29 Future hold 12/23/16 17:57 0.4 MG Polyethylene (Miralax Powder Packet) 17 gm DAILY PRN PO 12/22/16 16:30 01/21/17 16:29 Aspirin (Ecotrin Tab) 81 mg QAM PO 12/23/16 09:00 01/22/17 08:59 12/27/16 07:51 81 MG Metoprolol Tartrate (Lopressor Iv) 5 mg Q6 PRN IV 12/22/16 19:00 01/21/17 18:59 Vancomycin HCl (Consult) 1 ea UD PRN N/A 12/22/16 19:51 01/21/17 19:50 Heparin Sodium (Porcine) (Heparin 10 Unit/ ml 5 ml Flush) 5 ml PRN PRN FLUSH 12/22/16 23:45 01/21/17 23:44 12/27/16 13:08 5 ML Vancomycin HCl 1000 mg/Sodium Chloride 270 ml @ 125 mls/hr Q12@0900,2100 IV 12/23/16 09:00 01/02/17 08:59 12/27/16 10:37 125 MLS/HR Ranitidine HCl (zANTac TAB) 150 mg DAILY PO 12/24/16 10:00 01/23/17 09:59 12/27/16 07:57 150 MG Potassium/ Phosphorus/Sodium (Phospha 250 Neutral 155-852-130 Mg) 1 tab BID PO 12/25/16 09:00 01/24/17 08:59 12/27/16 07:56 1 TAB Tramadol HCl (Ultram Tab) 50 mg Q4H PRN PO 12/25/16 11:00 01/24/17 10:59 12/27/16 07:46 50 MG Albuterol/ Ipratropium (Duoneb) 3 ml Q6R INH 12/25/16 15:00 01/24/17 14:59 12/27/16 14:15 3 ML Warfarin Sodium (Coumadin Tab) 2.5 mg DAILY@16 PO 12/26/16 16:00 01/25/17 15:59 12/26/16 15:39 2.5 MG Guaifenesin (Mucinex Contr Rel Tab) 600 mg Q12 PO 12/26/16 21:00 01/25/17 20:59 12/27/16 07:54 600 MG Magnesium Oxide (Mag-Ox Tab) 400 mg BID PO 12/27/16 09:00 01/26/17 08:59 12/27/16 10:39 400 MG Potassium Chloride (Klor-Con Tab) 20 meq TID PO 12/27/16 09:00 01/26/17 08:59 12/27/16 14:06 20 MEQ Amoxicillin/ Clavulanate Potassium (Augmentin Tab) 875 mg BIDM PO 12/27/16 08:00 01/06/17 07:59 12/27/16 09:35 875 MG Oxycodone HCl (Roxicodone Immediate Rel Tab) 5 mg Q6 PRN PO 12/27/16 11:00 01/10/17 10:59 12/27/16 11:31 5 MG Sodium Chloride ([place] Nasal [place]) 2 sprays Q2H PRN NA 12/27/16 11:45 01/26/17 11:44 Objective Vital Signs Date Time Temp Pulse Resp B/P (MAP) Pulse Ox O2 Delivery O2 Flow Rate FiO2 12/27/16 14:15 74 16 96 Nasal Cannula 2.0 12/27/16 14:00 36.9 65 24 130/72 (91) 96 Nasal Cannula 2.0 12/27/16 13:59 85 Room Air 12/27/16 08:44 Nasal Cannula 2.0 12/27/16 08:00 96 Nasal Cannula 2.0 12/27/16 07:17 36.7 63 20 116/78 (91) 96 Nasal Cannula 2.0 12/27/16 07:12 64 16 93 Nasal Cannula 3.0 12/27/16 01:44 68 16 98 Nasal Cannula 3.0 12/27/16 00:11 36.4 62 16 119/76 (90) 96 2.0 12/27/16 00:00 97 Nasal Cannula 2.0 Humidified Oxygen 12/26/16 20:31 86 18 94 Nasal Cannula 3.0 12/26/16 20:00 97 Nasal Cannula 3.0 Humidified Oxygen 12/26/16 16:00 97 Nasal Cannula 3.0 12/26/16 14:48 37.0 70 20 112/73 (86) 97 Nasal Cannula 3.0 Physical Exam General Appearance: WD/WN, no apparent distress Eyes: normal inspection, EOMI, sclerae normal Neck: supple, no adenopathy, no JVD, trachea midline Respiratory/Chest: chest non-tender, lungs clear, no respiratory distress, no accessory muscle use, + decreased breath sounds (bases) Cardiovascular: regular rate, rhythm, no gallop, no JVD, no murmur Abdomen: normal bowel sounds, non tender, soft, no organomegaly Extremities: normal range of motion, no calf tenderness, normal capillary refill, pelvis stable, + pertinent finding (right foot swollen, tender to palpation, blisters posteriorly) 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 as tested, alert, normal mood/affect, oriented x 3, + motor weakness (generalized) Skin: + rash (right lower leg and foot erythema, warm to palpation) Laboratory Results Last 24 Hours Test 12/26/16 16:18 12/27/16 05:52 12/27/16 07:35 12/27/16 08:24 Bedside Glucose 107 mg/dl 108 mg/dl White Blood Count 8.69 K/uL Red Blood Count 3.21 M/uL Hemoglobin 9.4 g/dL Hematocrit 28.4 % Mean Corpuscular Volume 88.5 fL Mean Corpuscular Hemoglobin 29.3 pg Mean Corpuscular Hemoglobin Concent 33.1 g/dl Platelet Count 159 K/uL Mean Platelet Volume 10.5 fL Neutrophils (%) (Auto) 74.5 % Lymphocytes (%) (Auto) 10.1 % Monocytes (%) (Auto) 8.6 % Eosinophils (%) (Auto) 5.9 % Basophils (%) (Auto) 0.2 % Neutrophils # (Auto) 6.47 K/uL Lymphocytes # (Auto) 0.88 K/uL Monocytes # (Auto) 0.75 K/uL Eosinophils # (Auto) 0.51 K/uL Basophils # (Auto) 0.02 K/uL RDW Standard Deviation 48.0 fL RDW Coefficient of Variation 14.8 % Immature Granulocyte % (Auto) 0.7 % Immature Granulocyte # (Auto) 0.06 K/uL Prothrombin Time 36.1 SECONDS Prothromb Time International Ratio 3.2 Sodium Level 136 mmol/L Potassium Level 3.0 mmol/L Chloride Level 100 mmol/L Carbon Dioxide Level 31 mmol/L Anion Gap 5.0 mmol/L Blood Urea Nitrogen 20 mg/dl Creatinine 1.00 mg/dl Est Creatinine Clear Calc Drug Dose 44.4 ml/min Estimated GFR () 59.9 Estimated GFR (Non- 51.7 BUN/Creatinine Ratio 19.5 Random Glucose 107 mg/dl Calcium Level 8.8 mg/dl Phosphorus Level 2.1 mg/dl Magnesium Level 1.5 mg/dl Total Bilirubin 0.6 mg/dl Direct Bilirubin 0.2 mg/dl Aspartate Amino Transf (AST/SGOT) 46 U/L Alanine Aminotransferase (ALT/SGPT) 32 U/L Alkaline Phosphatase 102 U/L Total Protein 6.2 gm/dl Albumin 1.8 gm/dl Vancomycin Level Trough 20.7 mcg/ml Test 12/27/16 11:14 Bedside Glucose 148 mg/dl Assessment and Plan - Sepsis from right lower extremity cellulitis sepsis resolved mobilizing fluids with Lasix 20mg IV q12, responding very well, HCO3 going up , will only give one dose of Lasix today continue Vanco IV, change to Augmentin BID from Zosyn knee culture with MSSA and Group C strep WBC normal and Cr normal no signs of joint involvement on joint aspiration, ortho does not feel that the right ankle needs aspirated chronic DVT - Cough: non-productive, some mild congestion on CXR improved today, less frequency, no sputum suspect it is due to atelectasis flutter valve, nebulizers - Epistaxis: dried blood, likely due to dry nasal mucosa tried to take off oxygen, desaturated while sleeping nasal spray at the bedside - Elevated CK: mild rhabdomyolysis, non traumatic CK down to 600's 12/25, will not check further no signs of compartment syndrome check pulse with doppler, strong, good capillary refill - MARTÍN on CKD stage III: Cr normal, adequate UO Lasix 20mg IV q12 to help with diuresis as mentioned above, HCO3 up to 31 suggesting volume contraction give Lasix this AM and stop, monitor - AAA: quite large at 6cm, ICU discussed results with patient, no intervention at this time - DVT/PE with h/o IVC filter: continue Coumadin for now, INR 3.2 - CAD with elevated troponin: due to MARTÍN, no chest pain, no EKG changes (paced) continue aspirin and Plavix elevated troponin is demand ischemia - Anemia and thrombocytopenia: suspect it is due to infection, will monitor daily platelets normal, H/H stable continue PT/OT will need rehab, may be ready as early as tomorrow
[2016-12-27] MEDS: WARFARIN SOD 2.5 MG TAB PO SCH (15:50)
[2016-12-28] MEDS: ALBUT/IPRATROP 3MG/0.5MG NEB 3 ML VIAL INH SCH ×4 (01:56→20:23)
[2016-12-28] MEDS ORDERED: NURSING VERBAL MED ORDER ONE (04:00)
[2016-12-28] MEDS: NITROGLYCERIN 0.4 MG SL PER TAB CHARGE SL PRN (04:14)
[2016-12-28] MEDS: BENZONATATE 100MG CAP PO PRN ×2 (05:35→17:06)
[2016-12-28 05:47] LABS: CREATININE 0.91 mg/dl (0.60-1.20)
[2016-12-28 07:30] VITALS: PULSE 83; O2SAT 96
[2016-12-28 07:55] VITALS: BP 155/84; PULSE 62; TEMP 37; O2SAT 91
[2016-12-28] MEDS: TRAMADOL HCL 50 MG TAB PO PRN (08:25)
[2016-12-28] MEDS: MULTIVITAMIN TAB PO SCH (08:26)
[2016-12-28] MEDS: AMOXICILLIN/CLAVULANATE TAB 875 MG TAB PO SCH ×2 (08:26→17:07)
[2016-12-28] MEDS: POT PHOSPHATE MONOBASIC W/ SOD TAB PO SCH ×2 (08:27→22:14)
[2016-12-28] MEDS: RANOLAZINE 500 MG ER TAB PO SCH ×2 (08:27→22:15)
[2016-12-28] MEDS: OXCARBAZEPINE 150 MG TAB PO SCH ×4 (08:27→22:15)
[2016-12-28] MEDS: MAGNESIUM OXIDE 400 MG TAB PO SCH ×2 (08:28→22:14)
[2016-12-28] MEDS: POTASSIUM CHLORIDE 20 MEQ TABCR PO SCH ×3 (08:28→22:13)
[2016-12-28] MEDS: GABAPENTIN 600 MG TAB PO SCH ×3 (09:13→22:14)
[2016-12-28] MEDS: VANCOMYCIN INJ 1,000 MG in SODIUM CHLORIDE 0.9% 250ML 250 ML IV SCH ×2 (09:13→22:12)
[2016-12-28] MEDS: CLOPIDOGREL BISULFATE 75 MG TAB PO SCH (09:13)
[2016-12-28] MEDS: ASPIRIN 81 MG ECTAB PO SCH (09:13)
[2016-12-28] MEDS: ISOSORBIDE MONONITRATE 30 MG TABCR PO SCH (09:14)
[2016-12-28] MEDS: RANITIDINE HCL 150 MG TAB PO SCH (09:14)
[2016-12-28] MEDS: METOPROLOL SUCC 25MG EXT REL TAB PO SCH (09:14)
[2016-12-28] MEDS: GUAIFENESIN 600 MG TABCR PO SCH ×2 (09:15→22:14)
[2016-12-28] MEDS: OXYCODONE HCL IR 5 MG TAB (IMMEDIATE RELEASE) PO PRN ×2 (11:01→23:33)
[2016-12-28 14:21] VITALS: PULSE 64; O2SAT 94
--- NOTE | 2016-12-28 15:13 | Progress Note ---
Subjective Date of Service: Dec 28, 2016. Subjective Pt evaluation today including: conversation w/ patient, conversation w/ family , physical exam, lab review, review of inpatient medication list Pain: less pain in right leg/foot today PO Intake: improving Voiding: viera catheter in place patient feels slightly better, less pain in leg, can move it better, greater ROM coughing less, no dyspnea her ostomy bag detached last night, new bag placed today still with some epistaxis, has not yet received the saline nasal spray Problem List Medical Problems: (1) Acute renal failure Status: Acute (2) Cellulitis Status: Acute (3) NSTEMI (non-ST elevated myocardial infarction) Status: Acute (4) Right-sided chest pain Status: Acute (5) Supratherapeutic INR Status: Acute Review of Systems Constitutional: + weakness, + fatigue ENT: + problem reported (dried blood in dry nasal mucosa) Cardiac: + edema (right foot) Neurologic: + weakness, + balance problems All Other Systems: Reviewed and Negative Medications Current Inpatient Medications Medications (Trade) Dose Ordered Sig/Darrick Route Start Time Stop Time Status Last Admin Dose Admin Amlodipine Besylate (Norvasc Tab) 5 mg BID PO 12/22/16 21:00 01/21/17 20:59 Future Hold Clopidogrel Bisulfate (plAVix TAB) 75 mg DAILY PO 12/23/16 09:00 01/22/17 08:59 12/28/16 09:13 75 MG Gabapentin (Neurontin Tab) 600 mg TID PO 12/22/16 21:00 01/21/17 20:59 Future hold 12/28/16 13:26 600 MG Isosorbide Mononitrate (Imdur Ext Rel Tab) 90 mg DAILY PO 12/23/16 09:00 01/22/17 08:59 Future hold 12/28/16 09:14 90 MG Metoprolol Succinate (Toprol Xl Tab) 25 mg DAILY PO 12/23/16 09:00 01/22/17 08:59 Future hold 12/28/16 09:14 25 MG Multivitamins (Multivitamin Tab) 1 tab DAILY PO 12/23/16 09:00 01/22/17 08:59 Future hold 12/28/16 08:26 1 TAB Oxcarbazepine (Trileptal Tab) 150 mg QID PO 12/22/16 17:00 01/21/17 16:59 Future hold 12/28/16 13:27 150 MG Ranolazine (Ranexa ER Tab) 500 mg BID PO 12/22/16 21:00 01/21/17 20:59 Future hold 12/28/16 08:27 500 MG Acetaminophen (Tylenol Tab) 650 mg Q4H PRN PO 12/22/16 16:30 01/21/17 16:29 12/26/16 17:06 650 MG Magnesium Hydroxide (Milk Of Magnesia Susp) 30 ml Q12H PRN PO 12/22/16 16:30 01/21/17 16:29 Ondansetron HCl (Zofran Inj) 4 mg Q6H PRN IV 12/22/16 16:30 01/21/17 16:29 Nitroglycerin (Nitrostat Tab) 0.4 mg UD PRN SL 12/22/16 16:30 01/21/17 16:29 Future hold 12/28/16 04:14 0.4 MG Polyethylene (Miralax Powder Packet) 17 gm DAILY PRN PO 12/22/16 16:30 01/21/17 16:29 Aspirin (Ecotrin Tab) 81 mg QAM PO 12/23/16 09:00 01/22/17 08:59 12/28/16 09:13 81 MG Metoprolol Tartrate (Lopressor Iv) 5 mg Q6 PRN IV 12/22/16 19:00 01/21/17 18:59 Vancomycin HCl (Consult) 1 ea UD PRN N/A 12/22/16 19:51 01/21/17 19:50 Heparin Sodium (Porcine) (Heparin 10 Unit/ ml 5 ml Flush) 5 ml PRN PRN FLUSH 12/22/16 23:45 01/21/17 23:44 12/28/16 11:59 5 ML Vancomycin HCl 1000 mg/Sodium Chloride 270 ml @ 125 mls/hr Q12@0900,2100 IV 12/23/16 09:00 01/02/17 08:59 12/28/16 09:13 125 MLS/HR Ranitidine HCl (zANTac TAB) 150 mg DAILY PO 12/24/16 10:00 01/23/17 09:59 12/28/16 09:14 150 MG Potassium/ Phosphorus/Sodium (Phospha 250 Neutral 155-852-130 Mg) 1 tab BID PO 12/25/16 09:00 01/24/17 08:59 12/28/16 08:27 1 TAB Tramadol HCl (Ultram Tab) 50 mg Q4H PRN PO 12/25/16 11:00 01/24/17 10:59 12/28/16 08:25 50 MG Albuterol/ Ipratropium (Duoneb) 3 ml Q6R INH 12/25/16 15:00 01/24/17 14:59 12/28/16 14:20 3 ML Warfarin Sodium (Coumadin Tab) 2.5 mg DAILY@16 PO 12/26/16 16:00 01/25/17 15:59 12/27/16 15:50 2.5 MG Guaifenesin (Mucinex Contr Rel Tab) 600 mg Q12 PO 12/26/16 21:00 01/25/17 20:59 12/28/16 09:15 600 MG Magnesium Oxide (Mag-Ox Tab) 400 mg BID PO 12/27/16 09:00 01/26/17 08:59 12/28/16 08:28 400 MG Potassium Chloride (Klor-Con Tab) 20 meq TID PO 12/27/16 09:00 01/26/17 08:59 12/28/16 13:27 20 MEQ Amoxicillin/ Clavulanate Potassium (Augmentin Tab) 875 mg BIDM PO 12/27/16 08:00 01/06/17 07:59 12/28/16 08:26 875 MG Oxycodone HCl (Roxicodone Immediate Rel Tab) 5 mg Q6 PRN PO 12/27/16 11:00 01/10/17 10:59 12/28/16 11:01 5 MG Sodium Chloride ([place] Nasal [place]) 2 sprays Q2H PRN NA 12/27/16 11:45 01/26/17 11:44 12/28/16 11:12 2 SPRAYS Benzonatate (Tessalon Perles Cap) 100 mg TID PRN PO 12/28/16 04:15 01/27/17 04:14 12/28/16 05:35 100 MG Objective Vital Signs Date Time Temp Pulse Resp B/P (MAP) Pulse Ox O2 Delivery O2 Flow Rate FiO2 12/28/16 14:21 64 16 94 Nasal Cannula 2.0 12/28/16 08:00 Nasal Cannula 2.0 12/28/16 07:55 37.0 62 18 155/84 (107) 91 12/28/16 07:30 83 16 96 Nasal Cannula 2.0 12/28/16 00:00 Nasal Cannula 2.0 12/27/16 23:08 37.4 59 16 132/81 (98) 94 2.0 12/27/16 19:14 81 16 95 Nasal Cannula 2.0 12/27/16 16:00 92 Room Air Physical Exam General Appearance: WD/WN, no apparent distress Eyes: normal inspection, EOMI, sclerae normal ENT: normal ENT inspection, hearing grossly normal, pharynx normal Neck: supple, no adenopathy, no JVD, trachea midline Respiratory/Chest: chest non-tender, lungs clear, normal breath sounds, no respiratory distress, no accessory muscle use Cardiovascular: regular rate, rhythm, no edema, no gallop, no JVD, no murmur Abdomen: normal bowel sounds, non tender, soft, no organomegaly Extremities: normal range of motion, non-tender, normal inspection, no calf tenderness, normal capillary refill, pelvis stable, + pedal edema (right lower leg and foot) Neurologic/Psychiatric: 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, alert, normal mood/affect, oriented x 3, + motor weakness (generalized) Skin: normal color, warm/dry, + rash (right lower leg and foot erythema, less tender, less warm) Lymphatic: no adenopathy Laboratory Results Last 24 Hours Test 12/27/16 16:04 12/27/16 20:01 12/28/16 05:10 12/28/16 07:23 Bedside Glucose 110 mg/dl 117 mg/dl 106 mg/dl Creatinine 0.91 mg/dl Est Creatinine Clear Calc Drug Dose 48.8 ml/min Estimated GFR () 67.1 Estimated GFR (Non- 57.9 Troponin I 0.191 ng/ml Test 12/28/16 11:35 Bedside Glucose 119 mg/dl Assessment and Plan - Sepsis from right lower extremity cellulitis sepsis resolved diuresed well with Lasix, no further diuretics required continue Vanco IV while admitted, continue Augmentin BID knee culture with MSSA and Group C strep WBC normal and Cr normal no signs of joint involvement on joint aspiration, ortho does not feel that the right ankle needs aspirated chronic DVT - Cough: non-productive, some mild congestion on CXR improved daily, less frequency, no sputum suspect it is due to atelectasis flutter valve, nebulizers sit up in chair more often to open up lungs and improve atelectasis - Epistaxis: dried blood, likely due to dry nasal mucosa tried to take off oxygen, desaturated while sleeping nasal spray at the bedside humidify oxygen, try to wean off if possible - Elevated CK: mild rhabdomyolysis, non traumatic CK down to 600's 12/25, will not check further no signs of compartment syndrome check pulse with doppler, strong, good capillary refill - MARTÍN on CKD stage III: Cr normal, adequate UO no further Lasix needed, self diuresing - AAA: quite large at 6cm, ICU discussed results with patient, no intervention at this time - DVT/PE with h/o IVC filter: continue Coumadin for now, INR 3.2 on 12/27, repeat tomorrow - CAD with elevated troponin: due to MARTÍN, no chest pain, no EKG changes (paced) continue aspirin and Plavix elevated troponin is demand ischemia - Anemia and thrombocytopenia: suspect it is due to infection, will monitor daily platelets normal, H/H stable continue PT/OT will need rehab but Friday would be earliest
[2016-12-28] MEDS: WARFARIN SOD 2.5 MG TAB PO SCH (16:05)
[2016-12-28 16:13] VITALS: BP 130/76; PULSE 62; TEMP 36.6; O2SAT 97
[2016-12-28 20:23] VITALS: PULSE 66; O2SAT 96
[2016-12-28 23:27] VITALS: BP 162/79; PULSE 72; TEMP 37.1; O2SAT 91
[2016-12-29] MEDS: BENZONATATE 100MG CAP PO PRN ×2 (00:47→08:43)
[2016-12-29] MEDS: ALBUT/IPRATROP 3MG/0.5MG NEB 3 ML VIAL INH SCH ×4 (01:14→19:55)
[2016-12-29 01:15] VITALS: PULSE 66; O2SAT 94
[2016-12-29] MEDS: OXYCODONE HCL IR 5 MG TAB (IMMEDIATE RELEASE) PO PRN ×2 (05:52→20:16)
[2016-12-29 05:59] LABS: MEAN CELL VOLUME 88.6 fL (80-100); MEAN CORPUSCULAR HEMOGLOBIN 28.5 pg (25-34); MEAN CORPUSCULAR HGB CONC 32.1 g/dl (32-36); MEAN PLATELET VOLUME 10.1 fL (7.4-10.4); PLATELET COUNT 249 K/uL (130-400); RED BLOOD COUNT 3.16 M/uL (4.2-5.4); WHITE BLOOD COUNT 10.93 K/uL (4.8-10.8)
[2016-12-29 06:10] LABS: INR 3.1 (0.9-1.1); PROTHROMBIN TIME (PATIENT) 35.2 SECONDS (9.0-12.0)
[2016-12-29 06:40] LABS: CALCIUM 9.1 mg/dl (8.5-10.1); CREATININE 0.87 mg/dl (0.60-1.20); MAGNESIUM 1.7 mg/dl (1.8-2.4); POTASSIUM 4.1 mmol/L (3.5-5.1)
[2016-12-29 07:05] VITALS: PULSE 65; O2SAT 95
[2016-12-29 07:16] LABS: BASO % 0.4 %; BASO ABS # 0.04 K/uL (0-0.2); COMPLETE YES; EOS % 1.6 %; IG% 1.1 %; LYMPH % 7.7 %; LYMPH ABS # 0.84 K/uL (1.2-3.4); MONO % 7.3 %; NEUT % 81.9 %; TOXIC GRANULATION 2+
[2016-12-29 07:47] VITALS: BP 135/79; PULSE 65; TEMP 36.9; O2SAT 97
[2016-12-29] MEDS ORDERED: VANCOMYCIN TROUGH ONE (08:30)
[2016-12-29] MEDS: VANCOMYCIN INJ 1,000 MG in SODIUM CHLORIDE 0.9% 250ML 250 ML IV SCH ×3 (08:42→22:35)
[2016-12-29] MEDS: RANOLAZINE 500 MG ER TAB PO SCH ×2 (08:42→22:38)
[2016-12-29] MEDS: MULTIVITAMIN TAB PO SCH (08:42)
[2016-12-29] MEDS: ISOSORBIDE MONONITRATE 30 MG TABCR PO SCH (08:43)
[2016-12-29] MEDS: OXCARBAZEPINE 150 MG TAB PO SCH ×4 (08:43→22:39)
[2016-12-29] MEDS: AMOXICILLIN/CLAVULANATE TAB 875 MG TAB PO SCH ×2 (08:43→16:54)
[2016-12-29] MEDS: GUAIFENESIN 600 MG TABCR PO SCH ×2 (08:44→22:37)
[2016-12-29] MEDS: POTASSIUM CHLORIDE 20 MEQ TABCR PO SCH ×3 (08:44→22:52)
[2016-12-29] MEDS: RANITIDINE HCL 150 MG TAB PO SCH (08:44)
[2016-12-29] MEDS: MAGNESIUM OXIDE 400 MG TAB PO SCH ×2 (08:44→22:37)
[2016-12-29] MEDS: POT PHOSPHATE MONOBASIC W/ SOD TAB PO SCH ×2 (08:44→22:38)
[2016-12-29] MEDS: METOPROLOL SUCC 25MG EXT REL TAB PO SCH (08:44)
[2016-12-29] MEDS: ASPIRIN 81 MG ECTAB PO SCH (08:45)
[2016-12-29] MEDS: GABAPENTIN 600 MG TAB PO SCH ×3 (08:45→22:38)
[2016-12-29] MEDS: CLOPIDOGREL BISULFATE 75 MG TAB PO SCH (08:45)
[2016-12-29] MEDS ORDERED: FUROSEMIDE 20 MG TAB PO ONE (11:00)
--- NOTE | 2016-12-29 12:19 | Pharmacy Progress Note ---
Pharmacy Antibiotic Prog Note Date of Service Dec 29, 2016. Subjective The patient is currently receiving vancomycin 1 gm iv q 12hrs The patient is currently on day # 8 of IV therapy. Objective Height (Feet): 5 Height (Inches): 2.00 Weight (Kilograms): 92.700 Lab Results (24hrs): Test 12/29/16 05:26 12/29/16 07:21 12/29/16 09:53 12/29/16 11:33 White Blood Count 10.93 K/uL (4.8-10.8) Red Blood Count 3.16 M/uL (4.2-5.4) Hemoglobin 9.0 g/dL (12.0-16.0) Hematocrit 28.0 % (37-47) Mean Corpuscular Volume 88.6 fL (80-100) Mean Corpuscular Hemoglobin 28.5 pg (25-34) Mean Corpuscular Hemoglobin Concent 32.1 g/dl (32-36) Platelet Count 249 K/uL (130-400) Mean Platelet Volume 10.1 fL (7.4-10.4) Neutrophils (%) (Auto) 81.9 % Lymphocytes (%) (Auto) 7.7 % Monocytes (%) (Auto) 7.3 % Eosinophils (%) (Auto) 1.6 % Basophils (%) (Auto) 0.4 % Neutrophils # (Auto) 8.96 K/uL (1.4-6.5) Lymphocytes # (Auto) 0.84 K/uL (1.2-3.4) Monocytes # (Auto) 0.80 K/uL (0.11-0.59) Eosinophils # (Auto) 0.17 K/uL (0-0.5) Basophils # (Auto) 0.04 K/uL (0-0.2) RDW Standard Deviation 48.7 fL (36.4-46.3) RDW Coefficient of Variation 14.8 % (11.5-14.5) Immature Granulocyte % (Auto) 1.1 % Immature Granulocyte # (Auto) 0.12 K/uL (0.00-0.02) Toxic Granulation 2+ Prothrombin Time 35.2 SECONDS (9.0-12.0) Prothromb Time International Ratio 3.1 (0.9-1.1) Sodium Level 138 mmol/L (136-145) Potassium Level 4.1 mmol/L (3.5-5.1) Chloride Level 104 mmol/L (98-107) Carbon Dioxide Level 29 mmol/L (21-32) Anion Gap 5.0 mmol/L (3-11) Blood Urea Nitrogen 20 mg/dl (7-18) Creatinine 0.87 mg/dl (0.60-1.20) Est Creatinine Clear Calc Drug Dose 51.0 ml/min Estimated GFR () 70.9 Estimated GFR (Non- 61.2 BUN/Creatinine Ratio 23.0 (10-20) Random Glucose 130 mg/dl (70-99) Calcium Level 9.1 mg/dl (8.5-10.1) Magnesium Level 1.7 mg/dl (1.8-2.4) Bedside Glucose 120 mg/dl (70-90) 106 mg/dl (70-90) Vancomycin Level Trough 20.7 mcg/ml (SEE COMMENT) Assessment & Plan Patient is on vancomycin and augmentin for cellulitis infection. Knee cultures positive for MSSA, Group C strep. Vancomycin: * Trough level this am was therapeutic at ~20 mcg/ml (goal 15-20mcg/ml for cellulitis/+drainage) * Per previous discussion with MD; would like to continue with both vancomycin and augmentin due to severity of infection * Will continue with current regimen for now, Scr continues to be improving each day * If site no longer draining could consider a dose decrease to target a trough 10-15 mcg/ml if vancomycin is to be continued Pharmacy will continue to follow and will adjust dose/frequency as necessary. Thank you
[2016-12-29 14:05] VITALS: PULSE 60; O2SAT 97
--- NOTE | 2016-12-29 14:41 | Progress Note ---
Subjective Date of Service: Dec 29, 2016. Subjective Pt evaluation today including: conversation w/ patient, physical exam, lab review, review of inpatient medication list Pain: again, less pain today in right leg PO Intake: adequate Voiding: no voiding problems patient feeling well, pleased that right leg has less pain today eating better urinating well without viera continues to diurese even without IV lasix, PO lasix resumed less coughing she is up to getting into chair today reviewed labs Problem List Medical Problems: (1) Acute renal failure Status: Acute (2) Cellulitis Status: Acute (3) NSTEMI (non-ST elevated myocardial infarction) Status: Acute (4) Right-sided chest pain Status: Acute (5) Supratherapeutic INR Status: Acute Review of Systems Constitutional: + weakness, + fatigue Respiratory: + cough, + dyspnea on exertion Cardiac: + edema (right leg) Musculoskeletal: + joint pain (right ankle) Skin: + rash (right leg erythema) All Other Systems: Reviewed and Negative Medications Current Inpatient Medications Medications (Trade) Dose Ordered Sig/Darrick Route Start Time Stop Time Status Last Admin Dose Admin Amlodipine Besylate (Norvasc Tab) 5 mg BID PO 12/22/16 21:00 01/21/17 20:59 Future Hold Clopidogrel Bisulfate (plAVix TAB) 75 mg DAILY PO 12/23/16 09:00 01/22/17 08:59 12/29/16 08:45 75 MG Gabapentin (Neurontin Tab) 600 mg TID PO 12/22/16 21:00 01/21/17 20:59 Future hold 12/29/16 13:00 600 MG Isosorbide Mononitrate (Imdur Ext Rel Tab) 90 mg DAILY PO 12/23/16 09:00 01/22/17 08:59 Future hold 12/29/16 08:43 90 MG Metoprolol Succinate (Toprol Xl Tab) 25 mg DAILY PO 12/23/16 09:00 01/22/17 08:59 Future hold 12/29/16 08:44 25 MG Multivitamins (Multivitamin Tab) 1 tab DAILY PO 12/23/16 09:00 01/22/17 08:59 Future hold 12/29/16 08:42 1 TAB Oxcarbazepine (Trileptal Tab) 150 mg QID PO 12/22/16 17:00 01/21/17 16:59 Future hold 12/29/16 13:16 150 MG Ranolazine (Ranexa ER Tab) 500 mg BID PO 12/22/16 21:00 01/21/17 20:59 Future hold 12/29/16 08:42 500 MG Acetaminophen (Tylenol Tab) 650 mg Q4H PRN PO 12/22/16 16:30 01/21/17 16:29 12/26/16 17:06 650 MG Magnesium Hydroxide (Milk Of Magnesia Susp) 30 ml Q12H PRN PO 12/22/16 16:30 01/21/17 16:29 Ondansetron HCl (Zofran Inj) 4 mg Q6H PRN IV 12/22/16 16:30 01/21/17 16:29 Nitroglycerin (Nitrostat Tab) 0.4 mg UD PRN SL 12/22/16 16:30 01/21/17 16:29 Future hold 12/28/16 04:14 0.4 MG Polyethylene (Miralax Powder Packet) 17 gm DAILY PRN PO 12/22/16 16:30 01/21/17 16:29 Aspirin (Ecotrin Tab) 81 mg QAM PO 12/23/16 09:00 01/22/17 08:59 12/29/16 08:45 81 MG Metoprolol Tartrate (Lopressor Iv) 5 mg Q6 PRN IV 12/22/16 19:00 01/21/17 18:59 Vancomycin HCl (Consult) 1 ea UD PRN N/A 12/22/16 19:51 01/21/17 19:50 Heparin Sodium (Porcine) (Heparin 10 Unit/ ml 5 ml Flush) 5 ml PRN PRN FLUSH 12/22/16 23:45 01/21/17 23:44 12/29/16 13:00 5 ML Vancomycin HCl 1000 mg/Sodium Chloride 270 ml @ 125 mls/hr Q12@0900,2100 IV 12/23/16 09:00 01/02/17 08:59 12/29/16 09:39 125 MLS/HR Ranitidine HCl (zANTac TAB) 150 mg DAILY PO 12/24/16 10:00 01/23/17 09:59 12/29/16 08:44 150 MG Potassium/ Phosphorus/Sodium (Phospha 250 Neutral 155-852-130 Mg) 1 tab BID PO 12/25/16 09:00 01/24/17 08:59 12/29/16 08:44 1 TAB Tramadol HCl (Ultram Tab) 50 mg Q4H PRN PO 12/25/16 11:00 01/24/17 10:59 12/28/16 08:25 50 MG Albuterol/ Ipratropium (Duoneb) 3 ml Q6R INH 12/25/16 15:00 01/24/17 14:59 12/29/16 14:05 3 ML Warfarin Sodium (Coumadin Tab) 2.5 mg DAILY@16 PO 12/26/16 16:00 01/25/17 15:59 12/28/16 16:05 2.5 MG Guaifenesin (Mucinex Contr Rel Tab) 600 mg Q12 PO 12/26/16 21:00 01/25/17 20:59 12/29/16 08:44 600 MG Magnesium Oxide (Mag-Ox Tab) 400 mg BID PO 12/27/16 09:00 01/26/17 08:59 12/29/16 08:44 400 MG Potassium Chloride (Klor-Con Tab) 20 meq TID PO 12/27/16 09:00 01/26/17 08:59 12/29/16 13:01 20 MEQ Amoxicillin/ Clavulanate Potassium (Augmentin Tab) 875 mg BIDM PO 12/27/16 08:00 01/06/17 07:59 12/29/16 08:43 875 MG Oxycodone HCl (Roxicodone Immediate Rel Tab) 5 mg Q6 PRN PO 12/27/16 11:00 01/10/17 10:59 12/29/16 05:52 5 MG Sodium Chloride ([place] Nasal [place]) 2 sprays Q2H PRN NA 12/27/16 11:45 01/26/17 11:44 12/28/16 11:12 2 SPRAYS Benzonatate (Tessalon Perles Cap) 100 mg TID PRN PO 12/28/16 04:15 01/27/17 04:14 12/29/16 08:43 100 MG Furosemide (Lasix Tab) 20 mg QAM PO 12/30/16 09:00 01/29/17 08:59 Objective Vital Signs Date Time Temp Pulse Resp B/P (MAP) Pulse Ox O2 Delivery O2 Flow Rate FiO2 12/29/16 14:05 60 16 97 Nasal Cannula 2.0 12/29/16 07:47 36.9 65 22 135/79 (97) 97 2.0 12/29/16 07:39 Nasal Cannula 2.0 12/29/16 07:05 65 16 95 Nasal Cannula 2.0 12/29/16 01:15 66 16 94 Nasal Cannula 2.0 12/28/16 23:27 37.1 72 16 162/79 (106) 91 2.0 12/28/16 23:20 Nasal Cannula 2.0 Humidified Oxygen 12/28/16 20:23 66 16 96 Nasal Cannula 2.0 12/28/16 16:13 36.6 62 18 130/76 (94) 97 Nasal Cannula 2.0 12/28/16 16:00 Nasal Cannula 2.0 Physical Exam General Appearance: WD/WN, no apparent distress ENT: normal ENT inspection, hearing grossly normal, pharynx normal Neck: supple, no adenopathy, no JVD Respiratory/Chest: chest non-tender, lungs clear, normal breath sounds, no respiratory distress, no accessory muscle use Cardiovascular: regular rate, rhythm, no gallop, no JVD, + systolic murmur Abdomen: normal bowel sounds, non tender, soft, no organomegaly Extremities: normal range of motion, non-tender, normal inspection, no calf tenderness, + pedal edema (right lower extremity, mild improvement) Neurologic/Psychiatric: 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, alert, normal mood/affect, oriented x 3, + motor weakness (generalized, no focal deficits, strength improving) Skin: normal color, warm/dry, + rash (erythema improving, much less tender, less warmth) Laboratory Results Last 24 Hours Test 12/28/16 16:35 12/28/16 20:11 12/29/16 05:26 12/29/16 07:21 Bedside Glucose 102 mg/dl 138 mg/dl 120 mg/dl White Blood Count 10.93 K/uL Red Blood Count 3.16 M/uL Hemoglobin 9.0 g/dL Hematocrit 28.0 % Mean Corpuscular Volume 88.6 fL Mean Corpuscular Hemoglobin 28.5 pg Mean Corpuscular Hemoglobin Concent 32.1 g/dl Platelet Count 249 K/uL Mean Platelet Volume 10.1 fL Neutrophils (%) (Auto) 81.9 % Lymphocytes (%) (Auto) 7.7 % Monocytes (%) (Auto) 7.3 % Eosinophils (%) (Auto) 1.6 % Basophils (%) (Auto) 0.4 % Neutrophils # (Auto) 8.96 K/uL Lymphocytes # (Auto) 0.84 K/uL Monocytes # (Auto) 0.80 K/uL Eosinophils # (Auto) 0.17 K/uL Basophils # (Auto) 0.04 K/uL RDW Standard Deviation 48.7 fL RDW Coefficient of Variation 14.8 % Immature Granulocyte % (Auto) 1.1 % Immature Granulocyte # (Auto) 0.12 K/uL Toxic Granulation 2+ Prothrombin Time 35.2 SECONDS Prothromb Time International Ratio 3.1 Sodium Level 138 mmol/L Potassium Level 4.1 mmol/L Chloride Level 104 mmol/L Carbon Dioxide Level 29 mmol/L Anion Gap 5.0 mmol/L Blood Urea Nitrogen 20 mg/dl Creatinine 0.87 mg/dl Est Creatinine Clear Calc Drug Dose 51.0 ml/min Estimated GFR () 70.9 Estimated GFR (Non- 61.2 BUN/Creatinine Ratio 23.0 Random Glucose 130 mg/dl Calcium Level 9.1 mg/dl Magnesium Level 1.7 mg/dl Test 12/29/16 09:53 12/29/16 11:33 Vancomycin Level Trough 20.7 mcg/ml Bedside Glucose 106 mg/dl Assessment and Plan - Sepsis from right lower extremity cellulitis sepsis resolved diuresed well with Lasix IV, discontinued continue Vanco IV while admitted, continue Augmentin BID d/c on Doxycycline and Augmentin, would give another week on discharge knee culture with MSSA and Group C strep WBC normal and Cr normal no signs of joint involvement on joint aspiration, ortho does not feel that the right ankle needs aspirated chronic DVT no signs of compartment syndrome, checking pulses daily via doppler daily - Cough: non-productive, some mild congestion on CXR improved daily, less frequency, no sputum suspect it is due to atelectasis flutter valve, nebulizers sit up in chair more often to open up lungs and improve atelectasis - Epistaxis: dried blood, likely due to dry nasal mucosa nasal spray at the bedside humidify oxygen much less bleeding today - MARTÍN on CKD stage III: Cr normal, adequate UO resume Lasix 20mg PO daily, home medication - AAA: quite large at 6cm, ICU discussed results with patient, no intervention at this time - DVT/PE with h/o IVC filter: continue Coumadin for now, INR 3.1 on 12/29 - CAD with elevated troponin: due to MARTÍN, no chest pain, no EKG changes (paced) continue aspirin and Plavix elevated troponin is demand ischemia - Anemia and thrombocytopenia: suspect it is due to infection, will monitor daily platelets normal, H/H stable continue PT/OT anticipate that she can go to rehab tomorrow on Doxycycline/Augmentin for 7 more days
[2016-12-29 16:12] VITALS: BP 129/82; PULSE 86; TEMP 36.5; O2SAT 93
[2016-12-29] MEDS: WARFARIN SOD 2.5 MG TAB PO SCH (16:54)
[2016-12-29 19:56] VITALS: PULSE 67; O2SAT 93
[2016-12-30] VITALS (11 sets, daily range): BP systolic 103–131; BP diastolic 64–81; PULSE 62–98; TEMP 36.5–37; O2SAT 91–97
[2016-12-30] MEDS: ALBUT/IPRATROP 3MG/0.5MG NEB 3 ML VIAL INH SCH ×4 (02:07→20:15)
[2016-12-30 05:15] LABS: CREATININE 0.94 mg/dl (0.60-1.20)
[2016-12-30] MEDS: OXCARBAZEPINE 150 MG TAB PO SCH ×4 (08:57→22:15)
[2016-12-30] MEDS: AMOXICILLIN/CLAVULANATE TAB 875 MG TAB PO SCH ×2 (08:57→17:31)
[2016-12-30] MEDS: MAGNESIUM OXIDE 400 MG TAB PO SCH ×3 (08:57→22:12)
[2016-12-30] MEDS: POTASSIUM CHLORIDE 20 MEQ TABCR PO SCH ×3 (08:57→22:11)
[2016-12-30] MEDS: POT PHOSPHATE MONOBASIC W/ SOD TAB PO SCH ×2 (08:57→22:14)
[2016-12-30] MEDS: MULTIVITAMIN TAB PO SCH (08:58)
[2016-12-30] MEDS: RANITIDINE HCL 150 MG TAB PO SCH (08:58)
[2016-12-30] MEDS: OXYCODONE HCL IR 5 MG TAB (IMMEDIATE RELEASE) PO PRN (08:58)
[2016-12-30] MEDS: GUAIFENESIN 600 MG TABCR PO SCH ×2 (08:58→22:13)
[2016-12-30] MEDS: ISOSORBIDE MONONITRATE 30 MG TABCR PO SCH (08:58)
[2016-12-30] MEDS: FUROSEMIDE 20 MG TAB PO SCH (08:58)
[2016-12-30] MEDS: GABAPENTIN 600 MG TAB PO SCH ×3 (08:58→22:13)
[2016-12-30] MEDS: BENZONATATE 100MG CAP PO PRN ×2 (08:58→22:22)
[2016-12-30] MEDS: CLOPIDOGREL BISULFATE 75 MG TAB PO SCH (08:59)
[2016-12-30] MEDS: METOPROLOL SUCC 25MG EXT REL TAB PO SCH (08:59)
[2016-12-30] MEDS: ASPIRIN 81 MG ECTAB PO SCH (08:59)
[2016-12-30] MEDS: RANOLAZINE 500 MG ER TAB PO SCH ×2 (08:59→22:14)
[2016-12-30] MEDS: VANCOMYCIN INJ 1,000 MG in SODIUM CHLORIDE 0.9% 250ML 250 ML IV SCH ×2 (09:12→22:10)
[2016-12-30] MEDS: POLYETHYLENE (MIRALAX) 17 GM PACK PO SCH (11:16)
[2016-12-30] MEDS: TRAMADOL HCL 50 MG TAB PO PRN (12:49)
[2016-12-30] MEDS ORDERED: POTASSIUM CHLORIDE 10 MEQ TABCR PO STA (13:15)
[2016-12-30] MEDS ORDERED: FUROSEMIDE INJ 20 MG in SYRINGE 0 ML IV SCH (13:30)
[2016-12-30] MEDS ORDERED: NURSING VERBAL MED ORDER ONE (14:00)
--- NOTE | 2016-12-30 14:51 | Hospitalist Progress Note ---
Hospitalist Progress Note Date of Service Dec 30, 2016. (Janessa Link ., PA-C) Subjective Pt evaluation today including: conversation w/ patient, conversation w/ family (son at bedside ), lab review, review of studies, review of inpatient medication list Voiding: no voiding problems Patient feeling well. RLE cellulitis- appearance improving per patient/son Continues to have pain in RLE. +RLE edema, non worsening- felt better yesterday after IV Lasix. +back pain from laying in bed Encouraged to sit in bedside chair K-Pad PRN Oxycodone available for RLE pain helping with back pain Per RN, had an episode of confusion this AM Alert/oriented x3 when interviewing patient Likely hospital acquired delirium w/ ?underlying dementia- supportive care Patient denies any fever, chills, sweats, lightheadedness, dizziness, vision changes, CP, palpitations, edema, SOB, wheezing, abdominal pain, nausea, vomiting, diarrhea, urinary symptoms, melena, numbness/tingling, weakness, anxiety/depression, active bleeding. (Janessa Link, SANDRA-C) Medications Current Inpatient Medications Medications (Trade) Dose Ordered Sig/Darrick Route Start Time Stop Time Status Last Admin Dose Admin Amlodipine Besylate (Norvasc Tab) 5 mg BID PO 12/22/16 21:00 01/21/17 20:59 Future Hold Clopidogrel Bisulfate (plAVix TAB) 75 mg DAILY PO 12/23/16 09:00 01/22/17 08:59 12/30/16 08:59 75 MG Gabapentin (Neurontin Tab) 600 mg TID PO 12/22/16 21:00 01/21/17 20:59 Future hold 12/30/16 13:58 600 MG Isosorbide Mononitrate (Imdur Ext Rel Tab) 90 mg DAILY PO 12/23/16 09:00 01/22/17 08:59 Future hold 12/30/16 08:58 90 MG Metoprolol Succinate (Toprol Xl Tab) 25 mg DAILY PO 12/23/16 09:00 01/22/17 08:59 Future hold 12/30/16 08:59 25 MG Multivitamins (Multivitamin Tab) 1 tab DAILY PO 12/23/16 09:00 01/22/17 08:59 Future hold 12/30/16 08:58 1 TAB Oxcarbazepine (Trileptal Tab) 150 mg QID PO 12/22/16 17:00 01/21/17 16:59 Future hold 12/30/16 12:46 150 MG Ranolazine (Ranexa ER Tab) 500 mg BID PO 12/22/16 21:00 01/21/17 20:59 Future hold 12/30/16 08:59 500 MG Acetaminophen (Tylenol Tab) 650 mg Q4H PRN PO 12/22/16 16:30 01/21/17 16:29 12/26/16 17:06 650 MG Magnesium Hydroxide (Milk Of Magnesia Susp) 30 ml Q12H PRN PO 12/22/16 16:30 01/21/17 16:29 Ondansetron HCl (Zofran Inj) 4 mg Q6H PRN IV 12/22/16 16:30 01/21/17 16:29 Nitroglycerin (Nitrostat Tab) 0.4 mg UD PRN SL 12/22/16 16:30 01/21/17 16:29 Future hold 12/28/16 04:14 0.4 MG Polyethylene (Miralax Powder Packet) 17 gm DAILY PRN PO 12/22/16 16:30 01/21/17 16:29 Aspirin (Ecotrin Tab) 81 mg QAM PO 12/23/16 09:00 01/22/17 08:59 12/30/16 08:59 81 MG Metoprolol Tartrate (Lopressor Iv) 5 mg Q6 PRN IV 12/22/16 19:00 01/21/17 18:59 Vancomycin HCl (Consult) 1 ea UD PRN N/A 12/22/16 19:51 01/21/17 19:50 Heparin Sodium (Porcine) (Heparin 10 Unit/ ml 5 ml Flush) 5 ml PRN PRN FLUSH 12/22/16 23:45 01/21/17 23:44 12/30/16 11:31 5 ML Vancomycin HCl 1000 mg/Sodium Chloride 270 ml @ 125 mls/hr Q12@0900,2100 IV 12/23/16 09:00 01/02/17 08:59 12/30/16 09:12 125 MLS/HR Ranitidine HCl (zANTac TAB) 150 mg DAILY PO 12/24/16 10:00 01/23/17 09:59 12/30/16 08:58 150 MG Potassium/ Phosphorus/Sodium (Phospha 250 Neutral 155-852-130 Mg) 1 tab BID PO 12/25/16 09:00 01/24/17 08:59 12/30/16 08:57 1 TAB Tramadol HCl (Ultram Tab) 50 mg Q4H PRN PO 12/25/16 11:00 01/24/17 10:59 12/30/16 12:49 50 MG Albuterol/ Ipratropium (Duoneb) 3 ml Q6R INH 12/25/16 15:00 01/24/17 14:59 12/30/16 07:37 3 ML Warfarin Sodium (Coumadin Tab) 2.5 mg DAILY@16 PO 12/26/16 16:00 01/25/17 15:59 12/29/16 16:54 2.5 MG Guaifenesin (Mucinex Contr Rel Tab) 600 mg Q12 PO 12/26/16 21:00 01/25/17 20:59 12/30/16 08:58 600 MG Magnesium Oxide (Mag-Ox Tab) 400 mg BID PO 12/27/16 09:00 01/26/17 08:59 12/30/16 08:57 400 MG Potassium Chloride (Klor-Con Tab) 20 meq TID PO 12/27/16 09:00 01/26/17 08:59 12/30/16 13:58 20 MEQ Amoxicillin/ Clavulanate Potassium (Augmentin Tab) 875 mg BIDM PO 12/27/16 08:00 01/06/17 07:59 12/30/16 08:57 875 MG Oxycodone HCl (Roxicodone Immediate Rel Tab) 5 mg Q6 PRN PO 12/27/16 11:00 01/10/17 10:59 12/30/16 08:58 5 MG Sodium Chloride ([place] Nasal [place]) 2 sprays Q2H PRN NA 12/27/16 11:45 01/26/17 11:44 12/28/16 11:12 2 SPRAYS Benzonatate (Tessalon Perles Cap) 100 mg TID PRN PO 12/28/16 04:15 01/27/17 04:14 12/30/16 08:58 100 MG Furosemide (Lasix Tab) 20 mg QAM PO 12/30/16 09:00 01/29/17 08:59 12/30/16 08:58 20 MG Polyethylene (Miralax Powder Packet) 17 gm DAILY PO 12/30/16 10:30 01/29/17 10:29 12/30/16 11:16 17 GM Furosemide 20 mg/ Syringe 2 ml @ 4 mls/min TODAY@1330 IV 12/30/16 13:30 12/30/16 15:00 12/30/16 13:55 4 MLS/MIN Magnesium Oxide (Mag-Ox Tab) 400 mg BID PO 12/30/16 12:45 01/29/17 12:44 12/30/16 13:57 400 MG Miscellaneous Information (Nursing Verbal Med Order) 1 ea ONE ONCE N/A 12/30/16 14:00 12/30/16 14:01 UNV (Janessa Link, PA-C) Objective Vital Signs Date Time Temp Pulse Resp B/P (MAP) Pulse Ox O2 Delivery O2 Flow Rate FiO2 12/30/16 10:20 96 Nasal Cannula 2.0 12/30/16 08:19 95 Room Air 12/30/16 08:03 36.9 68 18 124/78 (93) 95 Room Air 12/30/16 07:46 37.0 62 18 131/81 (98) 94 2.0 12/30/16 07:45 94 Room Air 2.0 12/30/16 07:37 69 16 97 Nasal Cannula 2.0 12/30/16 00:28 36.8 62 16 103/65 (78) 95 2.0 62 12/29/16 23:23 Nasal Cannula 2.0 12/29/16 19:56 67 16 93 Nasal Cannula 2.0 12/29/16 16:12 36.5 86 16 129/82 (98) 93 Nasal Cannula 2.0 12/29/16 16:00 Nasal Cannula 2.0 (Janessa Link, PA-C) Physical Exam General Appearance: no apparent distress Eyes: normal inspection, PERRL ENT: hearing grossly normal Neck: supple Respiratory/Chest: lungs clear, no respiratory distress, no accessory muscle use Cardiovascular: regular rate, rhythm, + systolic murmur Abdomen: normal bowel sounds, non tender, soft Extremities: + swelling (+1-2 pitting edema of bilateral lower extremities ), + pertinent finding (noted erythema to RLE skin/foot region; wound dressing to R lower uribe and heel ) Neurologic/Psychiatric: alert, normal mood/affect, oriented x 3 Skin: normal color, warm/dry, no rash (Janessa Link PA-C) Laboratory Results Last 24 Hours Test 12/29/16 16:55 12/29/16 20:38 12/30/16 04:19 12/30/16 07:39 Bedside Glucose 120 mg/dl 117 mg/dl 122 mg/dl Creatinine 0.94 mg/dl Est Creatinine Clear Calc Drug Dose 47.2 ml/min Estimated GFR () 64.6 Estimated GFR (Non- 55.7 Test 12/30/16 11:44 Bedside Glucose 123 mg/dl (Janessa Link PA-C) Assessment and Plan Patient is an 86 yo female with history of PE, CAD, DVT, chronic superficial femoral thrombus & chronic anticoagulation on Coumadin who presented to the ED with complaints of right lower extremity pain and swelling along with SOB and confusion/disorientation. Sepsis from right lower extremity cellulitis- RESOLVING: - IV Vancomycin and Augmentin BID - Ortho consulted, appreciate recommendations -- Knee culture with MSSA and Group C strep- no signs of joint involvement on joint aspiration -- Does not feel that the right ankle needs aspirated - No signs of compartment syndrome, checking pulses daily via Doppler daily - IV Lasix 20 mg x1 dose to help w/ edema - Oxycodone q6 hrs and Tramadol PRN pain management Cough, non-productive, some mild congestion on CXR, likely secondary to atelectasis: - Flutter valve, nebulizers - Sit up in chair more often to open up lungs and improve atelectasis - O2 protocol, wean as tolerated Thrush: Magic mouthwash QID Epistaxis, likely due to dry nasal mucosa- RESOLVED: - Nasal spray at the bedside - Humidify oxygen MARTÍN on CKD stage III- RESOLVED: Resumed Lasix 20 mg daily once MARTÍN resolved, KCL TID AAA, large at 6cm: ICU discussed results with patient, no intervention at this time Chronic DVT/PE with h/o IVC filter: Continue Coumadin- INR goal 2-3 , adjust PRN CAD w/ elevated troponin, likely due to MARTÍN and demand ischemia- STABLE: - No chest pain, no EKG changes (paced) - Continue ASA, Plavix, Imdur, Ranexa, Metoprolol HTN: Continue Norvasc Hypomagnesemia: Continue Mag-Ox supplement, follow mag level Anemia and thrombocytopenia, likely secondary to infection- STABLE: Continue to follow CBC Trigeminal neuralgia: Oxcarbazepine QID GI prophylaxis: Zantac DVT prophylaxis: Coumadin Code Status: LEVEL V, DNR Dispo: Pending rehab placement, would like [facility]- PT/OT and drug abuse social worker consulted (Janessa Link ., PA-C) Attending Attestation: Pt seen/examined, chart reviewed, care plan d/w SANDRA Link. I agree w/ the arias components of her documentation. Pt c/o mouth pain. Denies dyspnea; confirms she DOES NOT use home O2 Pt changed her mind, stating she wanted [facility] rather than [facility] for rehab Had confusion this am - during my visit this was resolved VSS afebrile gen - nad mouth - thrush plaques buccal mucosa neck - no obvious JVD heart - RRR lungs - bibasilar rales abd - soft ext - right leg with 2+ edema, left leg w/o edema, pulses 2+ b/l skin - cellulitis RLE resolved vascular - right neck IJ CVC clean A/P: 1. RLE cellulitis - transition to PO abx tomorrow - improved 2nd to MSSA and group C strep 2. encephalopathy - likely hospital psychosis - resolved, follow, reassurance 3. hypoxia - due to acute distolic CHF ? give additional dose of IV lasix today; repeat labs am 4. thrush - nystatin [place] qid x 10 days 5. social - d/w dispo plan - despite pt stating she wanted [facility] she is now willing to go back to [facility] hopefully d/c tomorrow repeat INR lidia HONG MD (Jayme Hong MD)
[2016-12-30] MEDS ORDERED: MAGIC MOUTHWASH PO SCH (17:00)
[2016-12-30] MEDS: WARFARIN SOD 2.5 MG TAB PO SCH (17:31)
[2016-12-30] MEDS: DEXAMETHASONE CONC SOLN 3.75 MG, NYSTATIN SUSP 30 ML, DiphenhydrAMINE HCL SYRUP 300 MG,... PO SCH ×10 (17:34→22:10)
[2016-12-31] VITALS (8 sets, daily range): BP systolic 108–144; BP diastolic 69–90; PULSE 61–79; TEMP 36.4–36.7; O2SAT 92–98
[2016-12-31] MEDS: TRAMADOL HCL 50 MG TAB PO PRN ×2 (00:30→16:25)
[2016-12-31] MEDS: ALBUT/IPRATROP 3MG/0.5MG NEB 3 ML VIAL INH SCH ×4 (01:35→19:39)
[2016-12-31 05:38] LABS: HEMATOCRIT 26.4 % (37-47); MEAN CELL VOLUME 88.9 fL (80-100); MEAN CORPUSCULAR HEMOGLOBIN 27.6 pg (25-34); MEAN CORPUSCULAR HGB CONC 31.1 g/dl (32-36); MEAN PLATELET VOLUME 9.9 fL (7.4-10.4); PLATELET COUNT 286 K/uL (130-400); RED BLOOD COUNT 2.97 M/uL (4.2-5.4); WHITE BLOOD COUNT 10.69 K/uL (4.8-10.8)
[2016-12-31 06:18] LABS: BUN/CREATININE RATIO 20.2 (10-20); CALCIUM 8.7 mg/dl (8.5-10.1); CREATININE 0.93 mg/dl (0.60-1.20); POTASSIUM 4.2 mmol/L (3.5-5.1)
[2016-12-31] MEDS: AMOXICILLIN/CLAVULANATE TAB 875 MG TAB PO SCH (07:44)
[2016-12-31] MEDS: OXYCODONE HCL IR 5 MG TAB (IMMEDIATE RELEASE) PO PRN ×2 (07:45→13:20)
[2016-12-31 07:53] LABS: INR 1.9 (0.9-1.1); PROTHROMBIN TIME (PATIENT) 21.4 SECONDS (9.0-12.0)
[2016-12-31] MEDS: POLYETHYLENE (MIRALAX) 17 GM PACK PO SCH (09:00)
[2016-12-31] MEDS: MULTIVITAMIN TAB PO SCH (09:18)
[2016-12-31] MEDS: OXCARBAZEPINE 150 MG TAB PO SCH ×4 (09:18→20:55)
[2016-12-31] MEDS: MAGNESIUM OXIDE 400 MG TAB PO SCH ×2 (09:18→20:56)
[2016-12-31] MEDS: POT PHOSPHATE MONOBASIC W/ SOD TAB PO SCH ×2 (09:18→20:57)
[2016-12-31] MEDS: RANOLAZINE 500 MG ER TAB PO SCH ×2 (09:18→20:57)
[2016-12-31] MEDS: POTASSIUM CHLORIDE 20 MEQ TABCR PO SCH ×3 (09:19→20:56)
[2016-12-31] MEDS: ISOSORBIDE MONONITRATE 30 MG TABCR PO SCH (09:19)
[2016-12-31] MEDS: GUAIFENESIN 600 MG TABCR PO SCH ×2 (09:19→20:58)
[2016-12-31] MEDS: ASPIRIN 81 MG ECTAB PO SCH (09:20)
[2016-12-31] MEDS: METOPROLOL SUCC 25MG EXT REL TAB PO SCH (09:20)
[2016-12-31] MEDS: RANITIDINE HCL 150 MG TAB PO SCH (09:20)
[2016-12-31] MEDS: CLOPIDOGREL BISULFATE 75 MG TAB PO SCH (09:20)
[2016-12-31] MEDS: FUROSEMIDE 20 MG TAB PO SCH (09:20)
[2016-12-31] MEDS: GABAPENTIN 600 MG TAB PO SCH ×3 (09:20→20:58)
[2016-12-31] MEDS: DEXAMETHASONE CONC SOLN 3.75 MG, NYSTATIN SUSP 30 ML, DiphenhydrAMINE HCL SYRUP 300 MG,... PO SCH ×20 (09:23→21:00)
[2016-12-31] MEDS: FERROUS SULFATE 325 MG TAB PO SCH ×2 (11:56→16:26)
--- NOTE | 2016-12-31 13:07 | DIAGNOSTIC IMAGING REPORT ---
CHEST ONE VIEW PORTABLE CLINICAL HISTORY: 86 years-old Female presenting with ?ongoing CHF?. TECHNIQUE: Portable upright AP view of the chest was obtained. COMPARISON: 12/26/2016. FINDINGS: Right-sided pacer with leads in the right atrium and right ventricular apex. Mildly prominent cardiac silhouette. Atherosclerosis of aortic arch. Stable to slight interval decrease in perihilar vascular indistinctness and bibasilar hazy opacities. Small left pleural effusion may persist. Trace right effusion may also be present. No pneumothorax. Right shoulder arthroplasty. Prominent calcifications medial to the left coracoid process represent intra-articular loose bodies. Upper abdomen normal. IMPRESSION: 1. Stable to slight interval improvement in pulmonary edema. Electronically signed by: David Land M.D. 12/31/2016 1:06 PM Dictated Date/Time: 12/31/2016 1:04 PM
[2016-12-31] MEDS: BENZONATATE 100MG CAP PO PRN (13:33)
--- NOTE | 2016-12-31 13:46 | Hospitalist Progress Note ---
Hospitalist Progress Note Date of Service Dec 31, 2016. (Janessa Link ., PA-C) Subjective Pt evaluation today including: conversation w/ patient, conversation w/ family (son at bedside ), physical exam, lab review, review of studies, review of inpatient medication list Voiding: no voiding problems Patient feeling well. Back pain has resolved. RLE pain is 10/10 with no pain medications, but controlled with PRN medications. Patient/son believe RLE continues to improve each day. Edema with no improvement No more episodes of confusion Eating and drinking OK. Nurse tried to d/c O2 this AM, but patient states she started to feel anxious/ SOB and nurse reapplied O2. Patient denies any fever, chills, sweats, lightheadedness, dizziness, vision changes, CP, palpitations, wheezing, cough, abdominal pain, nausea, vomiting, diarrhea, urinary symptoms, melena, numbness/tingling, weakness, depression, active bleeding, or new skin discoloration/changes. (Janessa Link ., PA-C) Medications Current Inpatient Medications Medications (Trade) Dose Ordered Sig/Darrick Route Start Time Stop Time Status Last Admin Dose Admin Amlodipine Besylate (Norvasc Tab) 5 mg BID PO 12/22/16 21:00 01/21/17 20:59 Future Hold Clopidogrel Bisulfate (plAVix TAB) 75 mg DAILY PO 12/23/16 09:00 01/22/17 08:59 12/31/16 09:20 75 MG Gabapentin (Neurontin Tab) 600 mg TID PO 12/22/16 21:00 01/21/17 20:59 Future hold 12/31/16 13:20 600 MG Isosorbide Mononitrate (Imdur Ext Rel Tab) 90 mg DAILY PO 12/23/16 09:00 01/22/17 08:59 Future hold 12/31/16 09:19 90 MG Metoprolol Succinate (Toprol Xl Tab) 25 mg DAILY PO 12/23/16 09:00 01/22/17 08:59 Future hold 12/31/16 09:20 25 MG Multivitamins (Multivitamin Tab) 1 tab DAILY PO 12/23/16 09:00 01/22/17 08:59 Future hold 12/31/16 09:18 1 TAB Oxcarbazepine (Trileptal Tab) 150 mg QID PO 12/22/16 17:00 01/21/17 16:59 Future hold 12/31/16 13:21 150 MG Ranolazine (Ranexa ER Tab) 500 mg BID PO 12/22/16 21:00 01/21/17 20:59 Future hold 12/31/16 09:18 500 MG Acetaminophen (Tylenol Tab) 650 mg Q4H PRN PO 12/22/16 16:30 01/21/17 16:29 12/26/16 17:06 650 MG Magnesium Hydroxide (Milk Of Magnesia Susp) 30 ml Q12H PRN PO 12/22/16 16:30 01/21/17 16:29 Ondansetron HCl (Zofran Inj) 4 mg Q6H PRN IV 12/22/16 16:30 01/21/17 16:29 Nitroglycerin (Nitrostat Tab) 0.4 mg UD PRN SL 12/22/16 16:30 01/21/17 16:29 Future hold 12/28/16 04:14 0.4 MG Polyethylene (Miralax Powder Packet) 17 gm DAILY PRN PO 12/22/16 16:30 01/21/17 16:29 Aspirin (Ecotrin Tab) 81 mg QAM PO 12/23/16 09:00 01/22/17 08:59 12/31/16 09:20 81 MG Metoprolol Tartrate (Lopressor Iv) 5 mg Q6 PRN IV 12/22/16 19:00 01/21/17 18:59 Heparin Sodium (Porcine) (Heparin 10 Unit/ ml 5 ml Flush) 5 ml PRN PRN FLUSH 12/22/16 23:45 01/21/17 23:44 12/31/16 07:13 5 ML Ranitidine HCl (zANTac TAB) 150 mg DAILY PO 12/24/16 10:00 01/23/17 09:59 12/31/16 09:20 150 MG Potassium/ Phosphorus/Sodium (Phospha 250 Neutral 155-852-130 Mg) 1 tab BID PO 12/25/16 09:00 01/24/17 08:59 12/31/16 09:18 1 TAB Tramadol HCl (Ultram Tab) 50 mg Q4H PRN PO 12/25/16 11:00 01/24/17 10:59 12/31/16 00:30 50 MG Albuterol/ Ipratropium (Duoneb) 3 ml Q6R INH 12/25/16 15:00 01/24/17 14:59 12/31/16 07:02 3 ML Warfarin Sodium (Coumadin Tab) 2.5 mg DAILY@16 PO 12/26/16 16:00 01/25/17 15:59 12/30/16 17:31 2.5 MG Guaifenesin (Mucinex Contr Rel Tab) 600 mg Q12 PO 12/26/16 21:00 01/25/17 20:59 12/31/16 09:19 600 MG Potassium Chloride (Klor-Con Tab) 20 meq TID PO 12/27/16 09:00 01/26/17 08:59 12/31/16 13:20 20 MEQ Oxycodone HCl (Roxicodone Immediate Rel Tab) 5 mg Q6 PRN PO 12/27/16 11:00 01/10/17 10:59 12/31/16 13:20 5 MG Sodium Chloride ([place] Nasal [place]) 2 sprays Q2H PRN NA 12/27/16 11:45 01/26/17 11:44 12/28/16 11:12 2 SPRAYS Benzonatate (Tessalon Perles Cap) 100 mg TID PRN PO 12/28/16 04:15 01/27/17 04:14 12/30/16 22:22 100 MG Furosemide (Lasix Tab) 20 mg QAM PO 12/30/16 09:00 01/29/17 08:59 12/31/16 09:20 20 MG Polyethylene (Miralax Powder Packet) 17 gm DAILY PO 12/30/16 10:30 01/29/17 10:29 12/30/16 11:16 17 GM Magnesium Oxide (Mag-Ox Tab) 400 mg BID PO 12/30/16 12:45 01/29/17 12:44 12/31/16 09:18 400 MG Dexamethasone/ Nystatin/ Diphenhydramine HCl/Sucrose/ Microcrystalline Cellulose/Barcode QID PO 12/30/16 17:00 01/29/17 16:59 12/31/16 13:21 5 ML Ferrous Sulfate (Feosol Tab) 325 mg BIDM PO 12/31/16 10:00 01/30/17 09:59 12/31/16 11:56 325 MG Ceftriaxone Sodium 1 gm/ Dextrose 50 ml @ 100 mls/hr Q24H IV 12/31/16 14:00 01/10/17 13:59 (Janessa Link, SANDRA-C) Objective Vital Signs Date Time Temp Pulse Resp B/P (MAP) Pulse Ox O2 Delivery O2 Flow Rate FiO2 12/31/16 13:10 94 Nasal Cannula 2.0 12/31/16 09:29 92 Room Air 12/31/16 07:50 Nasal Cannula 2.0 12/31/16 07:41 36.7 79 20 132/84 (100) 95 2.0 12/31/16 07:03 66 16 97 Nasal Cannula 2.0 12/31/16 00:30 Nasal Cannula 2.0 12/31/16 00:00 36.7 74 20 144/90 (108) 92 2.0 12/30/16 21:12 98 106/64 (78) 12/30/16 20:15 66 18 91 Nasal Cannula 1.0 12/30/16 16:18 36.5 64 18 117/70 (86) 94 1.0 12/30/16 16:00 Nasal Cannula 2.0 12/30/16 14:11 63 16 95 Nasal Cannula 2.0 (Janessa Link, SANDRA-C) Physical Exam General Appearance: no apparent distress, + obese, + pertinent finding (2L O2 NC) Eyes: normal inspection, PERRL ENT: hearing grossly normal Neck: supple Respiratory/Chest: lungs clear, no respiratory distress, no accessory muscle use, + decreased breath sounds (bilateral lung bases ) Cardiovascular: regular rate, rhythm Abdomen: normal bowel sounds, non tender, soft Extremities: no calf tenderness, + swelling (+2-3 pitting edema of RLE ), + pertinent finding (RLE wound wrapped in clean dressing; noted erythema to distal foot) Neurologic/Psychiatric: alert, normal mood/affect, oriented x 3 Skin: normal color, warm/dry, no rash (Janessa Link ., SANDRA-C) Laboratory Results Last 24 Hours Test 12/30/16 16:32 12/30/16 19:35 12/31/16 05:06 12/31/16 07:11 Bedside Glucose 133 mg/dl 138 mg/dl White Blood Count 10.69 K/uL Red Blood Count 2.97 M/uL Hemoglobin 8.2 g/dL Hematocrit 26.4 % Mean Corpuscular Volume 88.9 fL Mean Corpuscular Hemoglobin 27.6 pg Mean Corpuscular Hemoglobin Concent 31.1 g/dl RDW Standard Deviation 49.2 fL RDW Coefficient of Variation 15.2 % Platelet Count 286 K/uL Mean Platelet Volume 9.9 fL Sodium Level 137 mmol/L Potassium Level 4.2 mmol/L Chloride Level 103 mmol/L Carbon Dioxide Level 31 mmol/L Anion Gap 3.0 mmol/L Blood Urea Nitrogen 19 mg/dl Creatinine 0.93 mg/dl Est Creatinine Clear Calc Drug Dose 47.7 ml/min Estimated GFR () 65.4 Estimated GFR (Non- 56.4 BUN/Creatinine Ratio 20.2 Random Glucose 107 mg/dl Calcium Level 8.7 mg/dl Magnesium Level 2.0 mg/dl Prothrombin Time 21.4 SECONDS Prothromb Time International Ratio 1.9 Test 12/31/16 07:31 12/31/16 11:18 Bedside Glucose 113 mg/dl 129 mg/dl (Janessa Link ., PA-C) Diagnostic Results CHEST ONE VIEW PORTABLE CLINICAL HISTORY: 86 years-old Female presenting with ?ongoing CHF?. TECHNIQUE: Portable upright AP view of the chest was obtained. COMPARISON: 12/26/2016. FINDINGS: Right-sided pacer with leads in the right atrium and right ventricular apex. Mildly prominent cardiac silhouette. Atherosclerosis of aortic arch. Stable to slight interval decrease in perihilar vascular indistinctness and bibasilar hazy opacities. Small left pleural effusion may persist. Trace right effusion may also be present. No pneumothorax. Right shoulder arthroplasty. Prominent calcifications medial to the left coracoid process represent intra-articular loose bodies. Upper abdomen normal. IMPRESSION: 1. Stable to slight interval improvement in pulmonary edema. Electronically signed by: David Land M.D. 12/31/2016 1:06 PM Dictated Date/Time: 12/31/2016 1:04 PM The status of this report is Signed. Draft = Not yet reviewed or approved by Radiologist. Signed = Reviewed and approved by Radiologist. (Janessa Link ., PA-C) Assessment and Plan Patient is an 86 yo female with history of PE, CAD, DVT, chronic superficial femoral thrombus & chronic anticoagulation on Coumadin who presented to the ED with complaints of right lower extremity pain and swelling along with SOB and confusion/disorientation. Sepsis from right lower extremity cellulitis- RESOLVING: - IV Vancomycin and Augmentin BID- transitioned to IV Rocephin on 12/31 - Consulted ID, appreciate recommendations- defer antibiotic choice/ PO vs IV at discharge to ID - Ortho consulted, appreciate recommendations -- Knee culture with MSSA and Group C strep- no signs of joint involvement on joint aspiration -- Does not feel that the right ankle needs aspirated - No signs of compartment syndrome, checking pulses daily via Doppler daily - Oxycodone q6 hrs and Tramadol PRN pain management Acute diastolic CHF w/ non-productive cough and increase in O2 demand: - Repeat CXR on 12/31- resolving pulmonary edema - Treating w/ IV Lasix - Echo completed - Monitor I&Os and daily weights- good UO- negative net balance - O2 protocol, weaning as tolerated - Flutter valve, nebulizers - Sit up in chair more often to open up lungs and improve atelectasis Thrush: Magic mouthwash QID x10 days- last day of treatment 01/08 Epistaxis, likely due to dry nasal mucosa- RESOLVED: - Nasal spray at the bedside - Humidify oxygen MARTÍN on CKD stage III- RESOLVED: - Held nephrotoxic agents - Follow PRP AAA, large at 6cm: ICU discussed results with patient, no intervention at this time Chronic DVT/PE with h/o IVC filter: Continue Coumadin- INR goal 2-3, adjust PRN CAD w/ elevated troponin, likely due to MARTÍN and demand ischemia- STABLE: - No chest pain, no EKG changes (paced) - Continue ASA, Plavix, Imdur, Ranexa, Metoprolol HTN: Continue Norvasc Hypomagnesemia- RESOLVED: Continue Mag-Ox supplement, follow mag level Anemia and thrombocytopenia, likely secondary to infection- STABLE: - Thrombocytopenia- RESOLVED - Ferrous Sulfate 325 mg BID - Continue to follow CBC Trigeminal neuralgia: Oxcarbazepine QID GI prophylaxis: Zantac DVT prophylaxis: Coumadin Code Status: LEVEL V, DNR Dispo: [facility] once medically stable- hopefully tomorrow- social media marketing specialist following - May require midline PICC prior to d/c if ID wants IV antibiotics at discharge (Janessa Link, PA-C) Attending Attestation: Pt seen/examined, chart reviewed, care plan d/w SANDRA Link. I agree w/ the arias components of her documentation. Still w/ dyspnea even with minimal activity Still w/ mild RLE pain especially with manipulation of the dressings etc appetite finally improving still with o2 requirement VSS afebrile gen - nad mouth - thrush plaques already improved neck - no obvious JVD heart - RRR lungs - bibasilar rales but improved abd - soft ext - right leg with 2+ edema - no change; left leg w/o edema, pulses 2+ b/l skin - cellulitis RLE resolved; there are areas of macerated skin on the posterior aspect of the distal leg as well as anterior aspect - mild drainage from these areas; mild amount of erythema in this region as well as the foot but not intensely red vascular - right neck IJ CVC clean A/P: 1. RLE cellulitis -? continue IV abx w/ rocephin at d/c from hospital? Will ask ID for their opinion no oral abx at this time again cultures previously grew MSSA and group C strep 2. encephalopathy - likely hospital psychosis - resolved, has not recurred 3. acute distolic CHF- cxr with improvement but still edema; additional lasix today; wean o2 off 4. thrush - nystatin [place] qid x 10 days 5. anemia - Fe supplementation; H/H have trended down but no obvious source of bleeding; cbc in am 6.. social - dispo - [facility] hopefully d/c tomorrow; may need midline PICC repeat INR am, cont coumadin son updated at bedside Adriana HONG MD (Jayme Hong MD)
[2016-12-31] MEDS ORDERED: FUROSEMIDE INJ 20 MG in SYRINGE 0 ML IV ONE (14:00)
[2016-12-31] MEDS: CEFTRIAXONE SOD INJ 1 GM in DEXTROSE 5% ADD-VANTAGE 50ML 50 ML IV SCH (14:27)
--- NOTE | 2016-12-31 14:56 | Progress Note ---
Progress Note Date of Service Dec 31, 2016. Progress Note ID consult Dictated #[id number] A/P: 1. RLE cellulitis/infected wound - MSSA, GCS -would suggest continue ctx for additional 10 days -ok for d/c when otherwise stable -thank you
--- NOTE | 2016-12-31 15:26 | INFECT. DISEASE CONSULTATION ---
DATE OF CONSULTATION: 12/31/2016 DATE OF CONSULTATION: 12/31/2016 REQUESTING PHYSICIAN: Dr. Abdi. HISTORY OF PRESENT ILLNESS: This is an 86-year-old female who was admitted to the hospital with right lower extremity pain and swelling. 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 She did have a superficial wound culture which grew MSSA and group C strep. She has been on Rocephin and vancomycin. Initially, she was scheduled to be discharged on doxycycline and Augmentin; however, she has been changed to Rocephin and she remains on this. Orthopedic surgery had also followed her during this admission and did an aspiration of her right knee and culture of that is negative. She initially had a white blood cell count of 17,000, this has improved to 10,000. She has been afebrile throughout this admission. She is tentatively scheduled for discharge later this week. Infectious diseases was consulted for cellulitis and antibiotic management. On my examination today the patient denies any fevers or chills. She states that her energy level has improved. She continues with pain in the right lower extremity but states it is improved. She also admits to improved edema. She is undergoing daily dressing changes. She is tolerating antibiotics well. Her appetite is stable. She denies any shortness of breath, cough or chest pain. She has no nausea, vomiting, diarrhea or abdominal pain. All remaining review of systems are reviewed and are unremarkable except or as noted above. She did have Dopplers in the Emergency Room which showed nonocclusive clot which has improved since 2014. PAST MEDICAL HISTORY: Significant for coronary artery disease, history of DVT, hypertension, history of PE, ulcerative colitis. PAST SURGICAL HISTORY: Significant for cardiac catheterization, ileostomy, angioplasty, lumpectomy, bilateral knee arthroplasty, pacemaker placement, IVC placement. FAMILY HISTORY: Noncontributory. SOCIAL HISTORY: Negative for tobacco use, alcohol use or drug use. She does not have any antibiotic allergies. CURRENT MEDICATIONS: Include Coumadin, ceftriaxone, iron, dexamethasone, magnesium, MiraLax, Lasix, Tessalon Perles, nasal spray, Roxicodone, potassium, Mucinex, DuoNebs, Ultram, PhosLo, Plavix, Zantac, Imdur, Toprol-XL, multivitamins, Ecotrin, subQ heparin, Neurontin, Ranexa, Trileptal, Tylenol, Zofran and MiraLax. PHYSICAL EXAMINATION: VITAL SIGNS: She is afebrile, pulse 61, respiratory rate is 20, blood pressure is 108/69, oxygen saturation is 98% on 2 liters nasal cannula. GENERAL: She is awake, alert and oriented x3. She is in no acute distress. HEAD, EYES, EARS, NOSE, AND THROAT: Mucous membranes are moist. Extraocular muscles are intact. HEART: Regular. LUNGS: Clear with decreased breath sounds at the bases bilaterally. There is no wheezing. ABDOMEN: Soft, nontender. Ileostomy is in place. EXTREMITIES: There is no left lower extremity edema. There is right lower extremity edema. There is no erythema, warmth or tenderness. Dressing is clean, dry and intact. There is no tenderness at the knee. Incision is well healed. LABORATORY STUDIES: CBC today reveals a white blood cell count of 10.6, hemoglobin 8.2, platelets are 286, sed rate was 56 on admission. Chemistry panel reveals a sodium of 137, potassium 4.2, chloride 103, bicarb 31, BUN 19, creatinine 0.9, glucose is 129. LFTs were normal on admission. CRP was 16 on admission. Urinalysis is unremarkable. Review of micro reveals blood cultures to be negative and final. There was 1 out of 2 sets with coag negative staph, which was felt to be contamination. On 12/22/2016 93 superficial culture is growing MSSA and group C strep. A knee aspirate is no growth and final. Most recent chest x-ray was done this morning and shows improved pulmonary edema. A CAT scan of the abdomen and pelvis was done on the that shows aortic aneurysm, lower extremity. A lower extremity CT done on the did not show any evidence of abscess but did show soft tissue edema, again lower extremity ultrasound showed nonocclusive thrombus. ASSESSMENT AND PLAN: Cellulitis of the right lower extremity. Certainly she has been improving and her knee aspirate is negative, she could be continued on an additional 10 days of Rocephin. She currently has a right IJ catheter and would likely need a PICC line placement prior to discharge. I do not see any contraindication for discharge from an infectious diseases standpoint. Thank you for this consultation.
[2016-12-31] MEDS ORDERED: WARFARIN SOD 2.5 MG TAB PO SCH (16:00)
[2016-12-31] MEDS: WARFARIN SOD 5 MG TAB PO SCH (16:16)
[2017-01-01] VITALS (13 sets, daily range): BP systolic 94–152; BP diastolic 61–92; PULSE 61–80; TEMP 36.6–37.4; O2SAT 86–96
[2017-01-01] MEDS: TRAMADOL HCL 50 MG TAB PO PRN ×3 (00:29→09:56)
[2017-01-01] MEDS: ALBUT/IPRATROP 3MG/0.5MG NEB 3 ML VIAL INH SCH ×3 (01:51→14:41)
[2017-01-01 05:48] LABS: HEMATOCRIT 25.6 % (37-47); MEAN CELL VOLUME 89.5 fL (80-100); MEAN CORPUSCULAR HGB CONC 31.3 g/dl (32-36); MEAN PLATELET VOLUME 9.6 fL (7.4-10.4); PLATELET COUNT 267 K/uL (130-400); RED BLOOD COUNT 2.86 M/uL (4.2-5.4); WHITE BLOOD COUNT 8.41 K/uL (4.8-10.8)
[2017-01-01 05:56] LABS: INR 1.7 (0.9-1.1); PROTHROMBIN TIME (PATIENT) 18.6 SECONDS (9.0-12.0)
[2017-01-01 06:14] LABS: BUN/CREATININE RATIO 18.4 (10-20); CALCIUM 8.5 mg/dl (8.5-10.1); MAGNESIUM 2.1 mg/dl (1.8-2.4); POTASSIUM 4.2 mmol/L (3.5-5.1)
[2017-01-01] MEDS: RANITIDINE HCL 150 MG TAB PO SCH (08:39)
[2017-01-01] MEDS: GABAPENTIN 600 MG TAB PO SCH ×2 (08:39→13:11)
[2017-01-01] MEDS: CLOPIDOGREL BISULFATE 75 MG TAB PO SCH (08:39)
[2017-01-01] MEDS: GUAIFENESIN 600 MG TABCR PO SCH (08:39)
[2017-01-01] MEDS: MULTIVITAMIN TAB PO SCH (08:39)
[2017-01-01] MEDS: POT PHOSPHATE MONOBASIC W/ SOD TAB PO SCH (08:39)
[2017-01-01] MEDS: RANOLAZINE 500 MG ER TAB PO SCH (08:39)
[2017-01-01] MEDS: METOPROLOL SUCC 25MG EXT REL TAB PO SCH (08:39)
[2017-01-01] MEDS: MAGNESIUM OXIDE 400 MG TAB PO SCH (08:40)
[2017-01-01] MEDS: POTASSIUM CHLORIDE 20 MEQ TABCR PO SCH ×2 (08:40→13:11)
[2017-01-01] MEDS: POLYETHYLENE (MIRALAX) 17 GM PACK PO SCH ×2 (08:40→08:47)
[2017-01-01] MEDS: FUROSEMIDE 20 MG TAB PO SCH (08:41)
[2017-01-01] MEDS: FERROUS SULFATE 325 MG TAB PO SCH ×2 (08:41→15:58)
[2017-01-01] MEDS: ASPIRIN 81 MG ECTAB PO SCH (08:41)
[2017-01-01] MEDS: ISOSORBIDE MONONITRATE 30 MG TABCR PO SCH (08:41)
[2017-01-01] MEDS: OXCARBAZEPINE 150 MG TAB PO SCH ×3 (08:42→15:58)
[2017-01-01] MEDS: DEXAMETHASONE CONC SOLN 3.75 MG, NYSTATIN SUSP 30 ML, DiphenhydrAMINE HCL SYRUP 300 MG,... PO SCH ×15 (08:43→15:58)
[2017-01-01] MEDS ORDERED: CEFT1INJ26 IV (09:53)
[2017-01-01] MEDS ORDERED: NYSS5 PO (09:53)
[2017-01-01] MEDS ORDERED: FRRS300 PO (09:53)
[2017-01-01] MEDS ORDERED: POTTAB2 PO (09:53)
[2017-01-01] MEDS ORDERED: RXC5 PO (09:53)
[2017-01-01] MEDS ORDERED: MCRK20 PO (09:53)
[2017-01-01] MEDS ORDERED: MGNO400 PO (09:53)
[2017-01-01] MEDS ORDERED: ULT50X PO (09:56)
[2017-01-01] MEDS ORDERED: PANTOprazole SOD 40 MG TAB PO ONE (10:00)
--- NOTE | 2017-01-01 10:04 | Discharge Instructions ---
Discharge Instructions Date of Service Jan 01, 2017. Admission Reason for Admission: Anticoagulated On Coumadin, Cellulitis Of Right Discharge Discharge Diagnosis / Problem: Right lower extremity cellulitis; CHF Discharge Goals Goal(s): Decrease discomfort, Improve function, Increase independence, Improve disease control, Improve nutritional status, Learn about illness, Diagnostic testing, Therapeutic intervention, Prevent Disease Progression Activity Recommendations Activity Level: Assistance Required Therapies: Physical Therapy, Occupational Therapy . Additional Information Patient informed of condition: Yes Advance Directives: Yes DNR: Yes Level of Care: Skilled Communicable Disease: No Prognosis: Improving Oxygen at (LPM): 2L Hill Catheter: No Instructions / Follow-Up Instructions / Follow-Up Sepsis from right lower extremity cellulitis- RESOLVING: - IV Vancomycin and Augmentin BID- transitioned to IV Rocephin on 12/31 per ID recommendations. Continue x10 days- last day of treatment 01/08 -- Midline/PICC consent signed w/ son present and placed prior to discharge - Ortho consulted, appreciate recommendations -- Knee culture with MSSA and Group C strep- no signs of joint involvement on joint aspiration -- Does not feel that the right ankle needs aspirated - No signs of compartment syndrome, checked pulses daily via Doppler daily - Oxycodone q6 hrs and Tramadol q4 hrs PRN pain management - Routine wound care Acute diastolic CHF w/ non-productive cough and increase in O2 demand- IMPROVING : - Repeat CXR on 12/31- resolving pulmonary edema - Treated w/ IV Lasix - Echo completed - Monitor I&Os and daily weights- good UO- negative net balance - O2 protocol, weaning as tolerated- patient 92% on RA at discharge - Flutter valve, nebulizers - Sit up in chair more often to open up lungs and improve atelectasis Thrush: Magic mouthwash QID x10 days- last day of treatment 01/08 Epistaxis, likely due to dry nasal mucosa- RESOLVED: - Nasal spray at the bedside - Humidify oxygen MARTÍN on CKD stage III- RESOLVED: - Held nephrotoxic agents - Follow PRP AAA, 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 INR 1.7 at discharge CAD w/ elevated troponin, likely due to MARTÍN and demand ischemia- STABLE: - No chest pain, no EKG changes (paced) - Continue ASA, Plavix, Imdur, Ranexa, Metoprolol HTN: Continue Norvasc Hypomagnesemia- RESOLVED: Continue Mag-Ox supplement daily, follow mag level Anemia and thrombocytopenia, likely secondary to infection- STABLE: - Thrombocytopenia- RESOLVED - Ferrous Sulfate 325 mg BID - Continue to follow CBC Hypophosphatemia: Phosphate supplement Trigeminal neuralgia: Oxcarbazepine QID GI prophylaxis: Protonix 40 mg daily DVT prophylaxis: Coumadin Code Status: LEVEL V, DNR Dispo: Discharge to [facility] FOLLOW-UP: Follow-up with [facility] provider within 24-48 hours Follow-up with PCP within 5-7 days from discharge from [facility] Please follow-up/keep all of your subspecialty appointments Current Hospital Diet Patient's current hospital diet: AHA Diet (Heart Healthy) Discharge Diet Recommended Diet: AHA Diet (Heart Healthy) Pending Studies Studies pending at discharge: no Physician Orders On Transfer Special Precautions: Fall precautions Dressing Changes: Routine RLE wound changes IV Therapy: Rocephin 1 gm daily Vital Signs: Routine POLST Discussion: without POLST completion Medical Emergencies . Who to Call and When: Medical Emergencies: If at any time you feel your situation is an emergency, please call 911 immediately. . Non-Emergent Contact Non-Emergency issues call your: Primary Care Provider Call Non-Emergent contact if: you have a fever, your pain is not controlled, your pain is worsening, your pain is unusual for you, your pain is concerning you, wound has increased drainage, wound has increased redness, wound has increased pain, you have any medication questions . . "Provider Documentation" section prepared by Janessa Link. Attending Attestation: Pt seen/examined and discharge care plan d/w SANDRA Link. I agree w/ her discharge instructions as outlined. Jayme Hong MD . Core Measure Problem Core Measures: None
[2017-01-01] MEDS ORDERED: FUROSEMIDE INJ 20 MG in SYRINGE 0 ML IV ONE (10:15)
--- NOTE | 2017-01-01 12:00 | Discharge Summary ---
Discharge Summary Date of Service Jan 01, 2017. 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 CAD w/ elevated troponin HTN Hypomagnesemia Anemia and thrombocytopenia Trigeminal neuralgia hypophosphatemia Immunizations: Have You Had Influenza Vaccine: Yes Influenza Vaccine Date: Jan 01, 2013 History of Tetanus Vaccine?: UTD History of Pneumococcal: Yes Pneumococcal Date: May 03, 2011 History of Hepatitis B Vaccine: No Procedures: ECHOCARDIOGRAM Interpretation Summary * Name: LEONARD NAYAK Study Date: 12/23/2016 06:27 AM BP: 104/58 mmHg * [place] [facility] [id number] HR: 67 * : 1930 (M/d/yyyy) Gender: Female Height: 62 in * Age: 86 yrs Ethnicity: [place] Weight: 198 lb * Ordering Physician: Laura Lechuga * Referring Physician: Self, Referred * Performed By: Mary Kate Rodríguez RCS * * Reason For Study: ENDOCARDITIS / ELEVATED TROPONIN * BSA: 1.9 m2 * -- Conclusions -- * Left ventricular systolic function is normal. * No regional wall motion abnormalities noted. * Ejection Fraction = 55-60%. * There is mild concentric left ventricular hypertrophy. * Diastolic dysfunction, Grade II (pseudonormalization pattern). 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 * Mild mitral stenosis. * Moderate mitral regurgitation. Procedure Details * A complete two-dimensional transthoracic echocardiogram was performed (2D, M- mode, Doppler and color flow Doppler). * The study was technically difficult. * A contrast injection of Definity was performed to improve assessment of LV function. * Contrast was injected into an intravenous site in the central line. * One vial of Definity ultrasound contrast was diluted in normal saline to a total volume of 10 ml. A total of '1' ml of solution was administered during imaging. * Lot # [id number] of Definity utilized for procedure. * Expiration date FEB 05. * The attending nurse who injected the contrast agent was MALATHI MACKEY RN. Left Ventricle * The left ventricle is normal in size. * There is mild concentric left ventricular hypertrophy. * Left ventricular systolic function is normal. * Ejection Fraction = 55-60%. * No regional wall motion abnormalities noted. Right Ventricle * The right ventricle is not well visualized. Atria * The left atrium is moderately dilated. * The right atrium is mildly dilated. * No ASD detected; PFO is not assessed. Mitral Valve * The mitral valve is not well visualized. * There is mild mitral stenosis. * There is moderate mitral regurgitation. Tricuspid Valve * The tricuspid valve is not well visualized. * Significant tricuspid regurgitation is absent. Aortic Valve * The aortic valve is not well visualized. 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 * There is no significant aortic regurgitation. Pulmonic Valve * The pulmonary valve is not well seen, but the Doppler examination is normal without significant regurgitation or stenosis. Great Vessels * The aortic root is normal size. * The pulmonary is not well visualized. Pericardium/Pleural * There is no pericardial effusion. Great Vessels * IVC not well visualized. Left Ventricular Diastolic Function * Diastolic dysfunction, Grade II (pseudonormalization pattern). RIGHT LOWER EXTREMITY VENOUS DOPPLER HISTORY: Pt c/o RLE swelling, pain Right COMPARISON STUDY: Venous Doppler 06/13/2013. FINDINGS: The right common femoral vein is patent. There is broken flow and incomplete compressibility throughout the superficial femoral vein consistent with nonocclusive thrombus. The popliteal vein and calf vessels appear patent. 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 This has improved compared to the 2013 examination. Electronically signed by: Justin Lepe M.D. 12/22/2016 3:46 PM Dictated Date/Time: 12/22/2016 3:44 PM The status of this report is Signed. Draft = Not yet reviewed or approved by Radiologist. Signed = Reviewed and approved by Radiologist. CHEST ONE VIEW PORTABLE HISTORY: Short of breath. COMPARISON: Chest 11/11/2015. FINDINGS: No pneumothorax. The heart remains enlarged. Tortuous thoracic aorta. No focal lung consolidations to suggest pneumonia. No evidence for pulmonary edema. Right basilar linear densities favor scarring or atelectasis. Right shoulder prosthesis. Right-sided dual-chamber pacemaker. Stable mild elevation of the left hemidiaphragm. IMPRESSION: No significant change compared to the prior study. No acute process. Electronically signed by: Justin Lepe M.D. 12/22/2016 3:02 PM Dictated Date/Time: 12/22/2016 3:00 PM The status of this report is Signed. Draft = Not yet reviewed or approved by Radiologist. Signed = Reviewed and approved by Radiologist. (CHEST) THORAX WITHOUT CT DOSE: 739.05 mGy.cm HISTORY: ? PE. Hypoxia TECHNIQUE: Multiaxial CT images of the chest were performed without contrast. A dose lowering technique was utilized adhering to the principles of ALARA. COMPARISON: Chest CT 06/13/2013. FINDINGS: Suboptimal dilation the chest due to respiratory motion artifact. This study is nondiagnostic to evaluate for a pulmonary embolus due to the lack of intravenous contrast. There are no dense areas of opacification within the main pulmonary arteries to suggest an embolus. Right-sided pacemaker is again noted. The heart is mildly enlarged. Mitral annulus calcifications. There are coronary artery calcifications. The ascending thoracic aorta measures up to 4.3 cm in diameter. This previously measured 4.1 cm in diameter. No pericardial effusion. No significant pleural effusions. Fluid-filled left subcoracoid recess containing intra-articular loose bodies. This is considered to be chronic. No mediastinal or hilar lymphadenopathy. The visualized liver and spleen are unremarkable. Right shoulder prosthesis. Old, healed right-sided rib fractures. No pneumothorax. The central airways are patent. A 7 mm groundglass nodule within the right lung apex. Patchy bibasilar density favors subsegmental atelectasis. A stable 5 mm nodule within the right middle lobe on image 175. Scattered groundglass densities may be due to mild congestive change. Mild interlobular septal thickening within the right lung apex. IMPRESSION: 1. Scattered groundglass densities and mild interlobular septal thickening within the right lung apex. This favors mild congestive change. 2. Patchy bibasilar densities favor subsegmental atelectasis. 3. Cardiomegaly. 4. The ascending thoracic aorta measures up to 4.3 cm diameter. 5. The study is essentially nondiagnostic to evaluate for a pulmonary embolus due to the lack of intravenous contrast. However, there are no dense areas of opacification within the main pulmonary arteries to suggest a large embolus. Electronically signed by: Justin Lepe M.D. 12/22/2016 11:22 PM Dictated Date/Time: 12/22/2016 11:12 PM The status of this report is Signed. Draft = Not yet reviewed or approved by Radiologist. Signed = Reviewed and approved by Radiologist HEAD CT NONCONTRAST CT DOSE: 614.27 mGy.cm HISTORY: disorientation, possible sepsis, septic emboli vs clotting? TECHNIQUE: Multiaxial CT images of the head were performed without the use of intravenous contrast. Automated exposure control was utilized for this study. A dose lowering technique was utilized adhering to the principles of ALARA. Comparison: Head CT 06/14/2013. Findings: The paranasal sinuses and mastoid air cells are clear. The calvarium and skull base are intact. The ventricles and sulci are within normal limits. There is no mass, hematoma, midline shift, or acute infarct. Left-sided scalp nodules are again noted. These may represent sebaceous cyst. Mild motion artifact. 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 Old lacunar infarct within the right thalamus. Impression: Mild motion artifact. No definite acute intracranial abnormality. Old infarcts as described above. Electronically signed by: Justin Lepe M.D. 12/22/2016 10:47 PM Dictated Date/Time: 12/22/2016 10:43 PM The status of this report is Signed. Draft = Not yet reviewed or approved by Radiologist. Signed = Reviewed and approved by Radiologist RIGHT KNEE 1 OR 2 VIEWS ROUTINE, RIGHT TIBIA/FIBULA 2 VIEWS ROUTINE CLINICAL HISTORY: leg swelling Right COMPARISON STUDY: None. FINDINGS: Chondrocalcinosis within the knee. 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 The bones are osteopenic. No fracture or dislocation within the right knee or right lower leg. No significant knee effusion. Diffuse soft tissue edema/swelling within the right knee and right lower leg. IMPRESSION: No fractures within the right knee or right lower leg. Diffuse soft tissue swelling/edema. Electronically signed by: Justin Lepe M.D. 12/22/2016 7:05 PM Dictated Date/Time: 12/22/2016 7:03 PM The status of this report is Signed. Draft = Not yet reviewed or approved by Radiologist. Signed = Reviewed and approved by Radiologist. RIGHT KNEE 1 OR 2 VIEWS ROUTINE, RIGHT TIBIA/FIBULA 2 VIEWS ROUTINE CLINICAL HISTORY: leg swelling Right COMPARISON STUDY: None. FINDINGS: Chondrocalcinosis within the knee. 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 The bones are osteopenic. No fracture or dislocation within the right knee or right lower leg. No significant knee effusion. Diffuse soft tissue edema/swelling within the right knee and right lower leg. IMPRESSION: No fractures within the right knee or right lower leg. Diffuse soft tissue swelling/edema. Electronically signed by: Justin Lepe M.D. 12/22/2016 7:05 PM Dictated Date/Time: 12/22/2016 7:03 PM The status of this report is Signed. Draft = Not yet reviewed or approved by Radiologist. Signed = Reviewed and approved by Radiologist. RIGHT LOWER EXTREMITY CT CT DOSE: 582.96 mGy.cm HISTORY: Right leg swelling. sepsis Right TECHNIQUE: Multiaxial CT images of the right lower extremity were performed and reformatted in the sagittal and coronal plane without the use of contrast. A dose lowering technique was utilized adhering to the principles of ALARA. COMPARISON: Right leg venous Doppler 12/22/2016. Right tibia/fibula 12/22/2016. FINDINGS: Partially visualized soft tissue stranding surrounding the external iliac/common femoral vessels. The patient's known right superficial femoral vein thrombus is not well visualized on this noncontrast study. There is moderate calcified plaque throughout the right lower terminate arterial system. Subcutaneous edema and skin thickening within the right lower leg, right ankle, and right foot. No loculated fluid collections on this noncontrast study to suggest an abscess. No significant knee effusion. There is a Hill catheter within the decompressed bladder. Gas within the bladder lumen is likely due to the catheterization. Chondrocalcinosis within the right knee. 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 No underlying bony destruction to suggest an osteomyelitis within the right lower extremity. There is a partially visualized left knee prosthesis. Mildly prominent right inguinal lymph nodes in comparison to the left. Old, healed right pubic bone fractures. No acute fracture or dislocation within the right lower extremity. IMPRESSION: 1. Extensive subcutaneous edema within the right lower leg, ankle, and foot as well as skin thickening. No definite loculated fluid collections on this noncontrast study to suggest an abscess. 2. No underlying bony destruction to suggest osteomyelitis. 3. Partially visualized fat stranding surrounding the right external iliac/common femoral vessels with mild right lingual lymphadenopathy. This could be due to a nonvisualized venous thrombus or infectious/inflammatory change. A small right extraperitoneal hematoma could also have a similar appearance. A contrast-enhanced CT of the pelvis is recommended for further evaluation. This can be performed at a 120 second delay to evaluate the venous structures. Electronically signed by: Justin Lepe M.D. 12/22/2016 10:43 PM Dictated Date/Time: 12/22/2016 10:33 PM The status of this report is Signed. Draft = Not yet reviewed or approved by Radiologist. Signed = Reviewed and approved by Radiologist. RIGHT ANKLE MIN 3 VIEWS ROUTINE HISTORY: 86 years-old Female RIGHT ANKLE PAIN Right acute right ankle pain with cellulitis. Follow-up study. COMPARISON: Right lower extremity CT 12/22/2016 TECHNIQUE: 3 views of the right ankle. FINDINGS: Moderate to extensive soft tissue swelling involves the right lower extremity, notably around the foot and ankle and also involving the lower leg with peripheral vascular calcifications. Moderate degenerative changes are seen throughout the midfoot and hindfoot without acute fracture or dislocation. There is moderate spurring of the plantar calcaneus. Bones are mildly demineralized. IMPRESSION: 1. Moderate degenerative changes of the midfoot and hindfoot without acute fracture or dislocation. 2. Persistent extensive soft tissue swelling about the right lower extremity appears stable from comparison. Differential considerations would include cellulitis, lymphedema or venous stasis. 3. Peripheral vascular disease. The above report was generated using voice recognition software. It may contain grammatical, syntax or spelling errors. Electronically signed by: Giancarlo Desai M.D. 12/23/2016 10:34 AM Dictated Date/Time: 12/23/2016 10:31 AM The status of this report is Signed. Draft = Not yet reviewed or approved by Radiologist. Signed = Reviewed and approved by Radiologist [~ rep ct add3]] ABD/PELVIS NO IV OR ORAL CONT HISTORY: 86 years-old Female she has infrarenal AAA with fat stranding. Drop Hb. Acute drop in hemoglobin with history of abdominal aortic aneurysm. Initial exam. COMPARISON: Right lower extremity duplex venous Doppler 12/22/2016, CT right lower extremity 12/22/2016, CTA 01/12/2014 TECHNIQUE: Multiple axial CT images of the abdomen and pelvis were obtained without contrast. A dose lowering technique was used consistent with the principals of ALARA. FINDINGS: There are trace bilateral pleural effusions with subsegmental bibasilar consolidations. Heart is enlarged with dense mitral annular and coronary arterial calcifications. Pacer leads overlie the right heart. There is no pneumoperitoneum identified. The liver, spleen, and right adrenal gland are unremarkable. Gallbladder is mildly distended without CT evidence of acute cholecystitis. Nodular thickening of the left adrenal gland is present suggesting hyperplasia. There is severe pancreatic atrophy. Multifocal cortical thinning and scarring involves the bilateral kidneys. No hydronephrosis. Urinary bladder is collapsed with Hill catheter in place. Nondependent air within the Hill catheter is likely secondary to instrumentation. Uterus appears age appropriate. Moderate atherosclerotic plaquing of the abdominal aorta is present. There is a progressively enlarged fusiform aneurysm dilation of the infrarenal abdominal aorta, 6.2 x 6.1 cm seen on image 202, previously measuring up to 5.1 x 5.1 cm on study dated 01/12/2014 when measured in a similar manner. IVC filter is noted within the infrarenal location. Nonspecific mild periaortic, pericaval and right iliac chain adenopathy is seen with nodes measuring up to 1.0 cm in short axis. Additionally, there is a moderate degree of fat stranding which is centered around the right external iliac artery and vein as well as the right common femoral artery and vein as seen on images 273 through 335 of the axial series. No large retroperitoneal hematoma identified. Stranding involving the lower pelvis is likely reactive from the aforementioned inflammatory changes. Mild right inguinal adenopathy. There is no bowel obstruction. 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 Moderate right parastomal hernia noted. Additionally, moderate ventral midline supraumbilical fat filled hernias are present with diastases measuring up to 3.3 cm. Diastases recti is noted. Bones are moderately demineralized. Severe multilevel facet arthrosis is seen within the lower lumbar spine. Large superior endplate Schmorl's node at L3 without significant retropulsion, unchanged from 2014. Remote right pelvic ring fracture noted. IMPRESSION: 1. Progressive enlargement of the infrarenal abdominal aortic aneurysm now measuring 6.2 x 6.1 cm, previously measuring 5.1 x 5.1 cm when measured in a similar fashion on study dated 01/12/2014. No evidence of aneurysm rupture. This could be further evaluated with a CT angiogram. 2. Mild nonspecific periaortic, pericaval, right iliac chain and inguinal adenopathy with moderate inflammatory stranding surrounding the right external iliac and common femoral vasculature. Inflammatory changes may be related to patient's known deep venous thrombosis as seen on comparison duplex study 12/22/2016. No large retroperitoneal hematoma identified. 3. Trace bilateral pleural effusions with subsegmental bibasilar consolidation suggesting atelectasis or pneumonia. 4. Moderate right parastomal hernia with additional fat filled supraumbilical ventral abdominal wall hernias noted as above. The above report was generated using voice recognition software. It may contain grammatical, syntax or spelling errors. Electronically signed by: Giancarlo Desai M.D. 12/23/2016 10:24 AM Dictated Date/Time: 12/23/2016 10:01 AM The status of this report is Signed. Draft = Not yet reviewed or approved by Radiologist. Signed = Reviewed and approved by Radiologist. CHEST ONE VIEW PORTABLE HISTORY: 86 years-old Female Incresased cough, hypoxia acute cough with hypoxia. COMPARISON: Chest radiograph 12/22/2016 TECHNIQUE: Portable upright AP view of the chest FINDINGS: Cardiac silhouette is again enlarged. There is tortuosity and atherosclerosis of the aorta. There is no pneumothorax. Right internal jugular central venous catheter is again noted and stable positioning. Right subclavian pacer is noted with leads intact. There is been interval development of pulmonary vascular congestion with background interstitial opacities, bibasilar alveolar opacities with small pleural effusions. Reverse right shoulder arthroplasty. Multiple calcifications are seen about the left shoulder which are nonspecific. IMPRESSION: 1. Cardiomegaly with development of mild pulmonary edema and bibasilar opacities suggesting atelectasis or pneumonia. 2. Small bilateral pleural effusions The above report was generated using voice recognition software. It may contain grammatical, syntax or spelling errors. Electronically signed by: Giancarlo Desai M.D. 12/26/2016 2:40 PM Dictated Date/Time: 12/26/2016 2:38 PM The status of this report is Signed. Draft = Not yet reviewed or approved by Radiologist. Signed = Reviewed and approved by Radiologist. CHEST ONE VIEW PORTABLE CLINICAL HISTORY: 86 years-old Female presenting with ?ongoing CHF?. TECHNIQUE: Portable upright AP view of the chest was obtained. COMPARISON: 12/26/2016. FINDINGS: Right-sided pacer with leads in the right atrium and right ventricular apex. Mildly prominent cardiac silhouette. Atherosclerosis of aortic arch. Stable to slight interval decrease in perihilar vascular indistinctness and bibasilar hazy opacities. Small left pleural effusion may persist. Trace right effusion may also be present. No pneumothorax. Right shoulder arthroplasty. Prominent calcifications medial to the left coracoid process represent intra-articular loose bodies. Upper abdomen normal. IMPRESSION: 1. Stable to slight interval improvement in pulmonary edema. Electronically signed by: David Land M.D. 12/31/2016 1:06 PM Dictated Date/Time: 12/31/2016 1:04 PM The status of this report is Signed. Draft = Not yet reviewed or approved by Radiologist. Signed = Reviewed and approved by Radiologist. Consultations: Infectious Disease [facility] (Janessa Link, PA-C) Problems/Secondary Diagnoses: +troponin - myocardial demand ischemia ("Type 2" [place]) acute blood loss anemia due to phlebotomy and epistaxis; stool heme negative Procedures: 1. right IJ central venous catheter 2. midline PICC line placement 3. right knee arthrocentesis and right knee prepatellar drainage - Justin Meng MD (Jayme Hong MD) Medication Reconciliation New Medications: Ceftriaxone Sodium (Rocephin) 1 Gm Inj 1 GM IV DAILY for 9 Days Nystatin (Nystatin) 5 Ml Susp 5 ML PO QID for 8 Days Ferrous Sulfate (Ferrous Sulfate) 325 Mg Tab 325 MG PO BIDM for 30 Days, TAB Magnesium Oxide (Magnesium-Oxide) 400 Mg Tab 400 MG PO DAILY for 30 Days, #30 TAB Oxycodone HCl (Oxycodone HCl) 5 Mg Tab 5 MG PO Q6 PRN for Pain for 3 Days, #12 TAB Pot Phosphate Monobasic W/ Sod (Phospha 250 Neutral) 1 Tab Tab 1 TAB PO BID for 30 Days, #60 TAB Potassium Chloride (Klor-Con M20) 20 Meq Tabcr 20 MEQ PO TID for 30 Days Tramadol HCl (Tramadol HCl) 50 Mg Tab 50 MG PO Q4H PRN for Pain for 3 Days, #12 TAB Continued Medications: Amlodipine Besylate (Norvasc) 5 Mg Tab 5 MG PO BID, TAB Clopidogrel (Plavix) 75 Mg Tab 75 MG PO DAILY, TAB Epinephrine (Epipen) 0.3 Mg/0.3 Ml Inj 0.3 MG IM UD, INJ Ergocalciferol (Drisdol) 50,000 Unit Cap 65172 UNIT PO MONTHLY Furosemide (Furosemide) 20 Mg Tab 20 MG PO DAILY, #90 Gabapentin (Gabapentin) 300 Mg Cap 600 MG PO TID, #720 Isosorbide Mononitrate Ext Rel (Imdur Ext Rel) 60 Mg Ertab 90 MG PO DAILY, TAB Metoprolol Succ (Toprol Xl) (Toprol-Xl) 25 Mg Tabcr 25 MG PO DAILY, #30 TAB Multivitamin (Multivitamin) Tab 1 TAB PO DAILY, TAB Oxcarbazepine (Trileptal) 150 Mg Tab 150 MG PO QID, 0 Refills Pantoprazole (Protonix) 40 Mg Tab 40 MG PO DAILY, #30 TAB Ranolazine (Ranexa) 500 Mg Tab 500 MG PO BID Warfarin Sodium (Warfarin Sodium) 6 Mg Tab 6 MG PO DAILY, TAB Discharge Exam Review of Systems: Constitutional: No fever, No chills, No sweats, No weakness, No fatigue Eyes: No worsening of vision ENT: No hearing loss Respiratory: + cough, No sputum, No wheezing, No shortness of breath, No hemoptysis Cardiovascular: + edema, No chest pain, No palpitations Abdomen: No pain, No nausea, No vomiting, No diarrhea, No constipation, No GI bleeding Musculoskeletal: + swelling, No joint pain, No muscle pain, No calf pain Genitourinary - Female: No dysuria, No hematuria Neurologic: No weakness, No numbness/tingling Psychiatric: No depression symptoms Hematologic / Lymphatic: No abnormal bleeding/bruising Integumentary: No rash, No itch, No new/changing skin lesions Physical Exam: General Appearance: no apparent distress, + obese Eyes: normal inspection, PERRL ENT: hearing grossly normal Neck: supple Respiratory/Chest: lungs clear, no respiratory distress, no accessory muscle use, + decreased breath sounds Cardiovascular: regular rate, rhythm, + systolic murmur Abdomen / GI: normal bowel sounds, non tender, soft, + pertinent finding ( Ostomy present RLQ) Extremities: no calf tenderness, + swelling (+2-3 pitting edema to RLE ), + pertinent finding (Noted RLE lesion to medial ankle- moist, no obvious drainage ; erythema to RLE from midfoot to mid uribe region ) Neurologic/Psychiatric: alert, normal mood/affect, oriented x 3 Skin: normal color, warm/dry, no rash (Janessa Link, DOYLE) Hospital Course Admission H&P: Patient is an 86 yo female with history of PE, CAD, DVT, chronic superficial femoral thrombus & chronic anticoagulation on Coumadin who presented to the ED with complaints of right lower extremity pain and swelling along with SOB and confusion/disorientation. Patient is very lethargic on exam. She answers questions when woken up and addressed, but quickly falls back to sleep. She has OxyMask in place on exam running at 2 L/min. Since presentation, the patient received 1.5 mg Dilaudid, Duoneb, Zofran, 1 g Ceftriaxone and Vancomycin. The patient states that her leg pain started yesterday. She does clearly have history of bilateral knee replacements from exam along with pacemaker placement. She states that she is having SOB but it is improved with O2 supplementation. She complains of no abdominal pain or diarrhea. She does have colostomy bag and does not wake enough to answer any questions about it. She is disoriented. The reliability of ROS is questionable due to current state. Discussed patient case with Dr. Franco and Dr. Abdi. Blood cultures ordered and pending. 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 Improved since exam in 2013 CXR: Viewed and reviewed by me Showed no change compared to prior study & no acute process. Cardiomegaly noted along with a tortuous thoracic aorta. Right sided atelectasis noted along with right shoulder prosthesis and right-sided pacemaker in place. Labs reviewed upon presentation: WBC 17.66- Neutrophil predominance Hgb/Hct 13.7/40.5. Creatinine 2.20 BUN 50 Na+ 135 K+ 4.8 Cl- 101 Bicarb 25 AST 93, ALT 31, Alk Phos 98 CK, CK-MB pending INR 2.5 Troponin 1.970 VS on admission: Temp 36.5 C HR 93 RR 20 SaO2 98% on presentation down to 91% on 2L nasal cannula Hospital Course: Sepsis from right lower extremity cellulitis- RESOLVING: - IV Vancomycin and Augmentin BID- transitioned to IV Rocephin on 12/31 per ID recommendations. Continue x10 days- last day of treatment 01/08 -- Midline/PICC consent signed w/ son present and placed prior to discharge - Ortho consulted, appreciate recommendations -- Knee culture with MSSA and Group C strep- no signs of joint involvement on joint aspiration -- Does not feel that the right ankle needs aspirated - No signs of compartment syndrome, checked pulses daily via Doppler daily - Oxycodone q6 hrs and Tramadol q4 hrs PRN pain management - Routine wound care Acute diastolic CHF w/ non-productive cough and increase in O2 demand- IMPROVING : - Repeat CXR on 12/31- resolving pulmonary edema - Treated w/ IV Lasix - Echo completed - Monitor I&Os and daily weights- good UO- negative net balance - O2 protocol, weaning as tolerated- patient 92% on RA at discharge - Flutter valve, nebulizers - Sit up in chair more often to open up lungs and improve atelectasis Thrush: Magic mouthwash QID x10 days- last day of treatment 01/08 Epistaxis, likely due to dry nasal mucosa- RESOLVED: - Nasal spray at the bedside - Humidify oxygen MARTÍN on CKD stage III- RESOLVED: - Held nephrotoxic agents - Follow PRP AAA, 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 INR 1.7 at discharge CAD w/ elevated troponin, likely due to MARTÍN and demand ischemia- STABLE: - No chest pain, no EKG changes (paced) - Continue ASA, Plavix, Imdur, Ranexa, Metoprolol HTN: Continue Norvasc Hypomagnesemia- RESOLVED: Continue Mag-Ox supplement daily, follow mag level Anemia and thrombocytopenia, likely secondary to infection- STABLE: - Thrombocytopenia- RESOLVED - Stool Hemoccult negative - Ferrous Sulfate 325 mg BID - Continue to follow CBC Hypophosphatemia: Phosphate supplement Trigeminal neuralgia: Oxcarbazepine QID GI prophylaxis: Protonix 40 mg daily DVT prophylaxis: Coumadin Code Status: LEVEL V, DNR Dispo: Discharge to [facility] Total Time Spent: Greater than 30 minutes This includes examination of the patient, discharge planning, medication reconciliation, and communication with other providers. (Janessa Link PA-C) Attending Discharge Note & Attestation: Pt seen/examined, chart reviewed, care plan d/w SANDRA Link. I agree w/ the arias components of her discharge summary. Pleasant 86yo female who presented with RLE cellulitis with resulting severe sepsis. She was admitted to the ICU but fortunately never required pressors. She underwent arthrocentesis of the right knee joint but no effusion was present. There was also an area of swelling and purulent material in the prepatellar region on the right. This was aspirated by orthopedics and culture ultimately grew group C strep and MSSA. She had a prolonged hospital stay due to the cellulitis. Wound care was consulted to assist with dressing changes as there were multiple ulcerated areas on the distal uribe. Her stay was complicated by acute kidney injury, +troponin due to myocardial demand ischemia, deconditioning, acute blood loss anemia, and acute diastolic CHF requiring multiple days of diuresis. Due to the severity of the RLE cellulitis infectious disease was consulted who recommended an extended course of IV antibiotic therapy in the way of rocephin daily. Midline PICC was placed for this purpose. Discharge exam - gen - NAD, a/o x 3 neck - no JVD mouth - thrush resolved heart - 2/6 systolic murmur RUSB, RRR lungs - CTA b/l abd - soft, NT, ostomy in place with bag filled w/ brown stool, BS+ ext - 2-3+ edema right foot and ankle extending to mid calf; no edema on left; pulses 2+ b/l skin - resolving cellulitis extending from just below the calf to the dorsum of the right foot; there are several areas of ulceration on the anterior uribe that are clean Jayme Hong MD (Jayme Hong MD) Discharge Instructions Please refer to the electronic Patient Visit Report (Discharge Instructions) for additional information. (Janessa Link PA-C) Follow-Up Follow-up with [facility] provider within 24-48 hours Please follow-up with your PCP within 5-7 days after discharge from [facility] Please follow-up/keep all of your subspecialty appointments (Janessa Link PA-C) Additional Copies To Julius Zamora M.D.; [facility]
[2017-01-01] MEDS: CEFTRIAXONE SOD INJ 1 GM in DEXTROSE 5% ADD-VANTAGE 50ML 50 ML IV SCH (14:14)
[2017-01-01] MEDS: WARFARIN SOD 5 MG TAB PO SCH (15:58)
[2017-01-02] MEDS ORDERED: PANTOprazole SOD 40 MG TAB PO SCH (09:00)
[2017-01-19] MEDS ORDERED: FURO-85 PO ×2 (08:49→10:54)
[2017-01-19] MEDS ORDERED: POTA20TA16 PO (10:54)
[2017-01-19] MEDS ORDERED: ECRCR EXT (10:54)
[2017-01-19] MEDS ORDERED: NTRSLP4 SL (10:54)
[2017-01-22] MEDS ORDERED: CEFT1INJ57 IV (11:58)
== END 2017-01-01 18:30 | DRG 871 ==
LOC: C.EDB 12:57 → C.MSICU 16:56 → ENRESERV 17:24 → UNDOADMIN 19:11 → C.MSICU 19:11 → ENRESERV 12-24 10:59 → C.2T 12-24 12:57 → ENRESERV 12-25 12:21 → C.MS2W 12-25 14:43
PROVIDERS: ADMIT Hospitalist; ATTEND Internal Medicine
PROC: 0S9C3ZX Drainage of Right Knee Joint, Percutaneous Approach, Diagnostic (ICD-10-PCS; 2016-12-22)
PROC: 05HM33Z Insertion of Infusion Device into Right Internal Jugular Vein, Percutaneous Approach (ICD-10-PCS; 2016-12-22)
PROC: 02HV33Z Insertion of Infusion Device into Superior Vena Cava, Percutaneous Approach (ICD-10-PCS; principal; 2017-01-01)
DX: A41.9 Sepsis, unspecified organism (principal); L03.115 Cellulitis of right lower limb; I50.31 Acute diastolic (congestive) heart failure; K51.90 Ulcerative colitis, unspecified, without complications; N17.9 Acute kidney failure, unspecified; I13.0 Hypertensive heart and chronic kidney disease with heart failure and stage 1 through stage 4 chronic kidney disease, or unspecified chronic kidney disease; I82.811 Embolism and thrombosis of superficial veins of right lower extremity; B37.0 Candidal stomatitis; M62.82 Rhabdomyolysis; F23 Brief psychotic disorder; I25.10 Atherosclerotic heart disease of native coronary artery without angina pectoris; Z86.718 Personal history of other venous thrombosis and embolism; Z86.711 Personal history of pulmonary embolism; Z95.5 Presence of coronary angioplasty implant and graft; Z93.2 Ileostomy status; Z96.653 Presence of artificial knee joint, bilateral; Z95.0 Presence of cardiac pacemaker; R09.02 Hypoxemia; N18.3 Chronic kidney disease, stage 3 (moderate); E83.42 Hypomagnesemia; D64.9 Anemia, unspecified; D69.6 Thrombocytopenia, unspecified; G50.0 Trigeminal neuralgia; E83.39 Other disorders of phosphorus metabolism; I71.4 Abdominal aortic aneurysm, without rupture; B95.61 Methicillin susceptible Staphylococcus aureus infection as the cause of diseases classified elsewhere; R73.9 Hyperglycemia, unspecified

== ENCOUNTER → 2017-01-07 | Outpatient (CLI) | payer OTHER, BC ==
[~2017-01-07] MED LIST changes: +ACET-176 PO; +BISA1SUP4 PR; +CEFT1INJ26 IV; +CEFT1INJ57 IV; +CMD5 PO; +DOCU100C31 PO; +ECRCR EXT; +FLUC100T4 PO; +FRRS300 PO; +FRS/40 PO; +FURO-85 PO; +IMDSR60 PO; +ISOS30TA35 PO; +MCRK20 PO; +MGNO400 PO; +MOML PO; +MULT-513 PO; +NF656 TD; -NITRSPR6; +NTRSLP4 SL; +NYSS/ MT; +NYSS5 PO; +OXYC1TAB3 PO; +PANT40TA PO; +POLY335019 PO; +POTA20TA16 PO; +POTTAB2 PO; +RXC5 PO; +SALI0.6510 NAE; +SNTO30 EXT; -SODI1000 PO; +SODIENE PR; +TPRSR25 PO; +TPRSR50 PO; -TRAM-10 PO; +ULT/50 PO; +ULT50X PO
--- NOTE | 2017-01-07 15:55 | DIAGNOSTIC IMAGING REPORT ---
RIGHT ANKLE MIN 3 VIEWS ROUTINE CLINICAL HISTORY: 86 years-old Female presenting with cellulitis, right ankle pain, open wounds. TECHNIQUE: Frontal, mortise, and lateral views of the right ankle were obtained. COMPARISON: 12/23/2016. FINDINGS: Extensive soft tissue swelling in the lower extremity ankle unchanged from prior. A bandage is noted over the lateral aspect of the distal lower leg likely indicating a site of an open wound. No subjacent soft tissue emphysema or cortical erosion or periosteal reaction. Ankle mortise intact. Osteopenia suggested. Atherosclerosis. IMPRESSION: No radiographic evidence of osteomyelitis. If there is continuing clinical concern, MR is more sensitive for this diagnosis. Open wound along the distal lateral lower leg. Electronically signed by: David Land M.D. 01/07/2017 3:54 PM Dictated Date/Time: 01/07/2017 3:52 PM
== END | disposition home or self-care (01) ==
LOC: C.RAD 15:32
PROVIDERS: ATTEND Physical Medicine & Rehabilitation
DX: M25.571 Pain in right ankle and joints of right foot (principal)

== ENCOUNTER → 2017-01-10 | Outpatient (CLI) | payer OTHER, BC | END | disposition home or self-care (01) | LOC: C.LABSPEC 18:01 | PROVIDERS: ATTEND Orthopaedic Surgery | DX: S75.9 Injury of unspecified blood vessel at hip and thigh level (principal); X58.XXXA Exposure to other specified factors, initial encounter ==

== ENCOUNTER 2017-01-12 10:07 | Inpatient (IN) | payer BC ==
[~2017-01-12] VITALS: Ht 157.5 cm; Wt 84.2 kg
[~2017-01-12 10:07] MED LIST changes: -ACET-176 PO; -BISA1SUP4 PR; -CEFT1INJ57 IV; -CMD5 PO; -DOCU100C31 PO; -ECRCR EXT; -FLUC100T4 PO; -FRS/40 PO; -FURO-85 PO; -IMDSR60 PO; -ISOS30TA35 PO; -MOML PO; -MULT-513 PO; -NF656 TD; -NTRSLP4 SL; -NYSS/ MT; -OXYC1TAB3 PO; -PANT40TA PO; -POLY335019 PO; -POTA20TA16 PO; -SALI0.6510 NAE; -SNTO30 EXT; -SODIENE PR; -TPRSR25 PO; -TPRSR50 PO; -ULT/50 PO
[2017-01-12] MEDS ORDERED: MoRPHine SULFATE 4 MG/ML 1 ML CARP\\VIAL IV PRN (10:45)
--- NOTE | 2017-01-12 10:52 | EMERGENCY ROOM VISIT NOTE ---
History Report prepared by Alka: Stevenson Maki Under the Supervision of: Dr. Ryder Shaffer M.D. First contact with patient: 10:41 Chief Complaint: CARDIAC ASSESSMENT Stated Complaint: CHEST PAIN Nursing Triage Summary: PT HERE VIA ALS FROM [facility], PT IS THERE FOR CELLULITIS OF RIGHT LOWER LEG , LEG IS WRAPPED WITH SEVERAL DRESSINGS. PT DENIES ANY DRAINAGE. PT STATES AT 0500 THIS AM PT BEGAN WITH MID CHEST PAINS. DENIES SOB OR ANY OTHER SX. PT STATES HER RIGHT LEG IS MORE PAINFUL THAN CHEST. GIVEN ONE NITRO AT [facility] WITH MIN. RELIEF. PT ALSO HAS HX OF R SIDED TRIGEMINAL NEURALGIA History of Present Illness The patient is a 86 year old female who presents to the Emergency Room with complaints of chest pain that began 6 hours ago. She rates her pain a 4/10 in severity. She is currently being treated for her right leg cellulitis at [facility]. Prior to arrival, she was given 1 nitroglycerin which did not help her chest pain. She has a history of trigeminal neuralgia for the past 20 years. Her neuralgia is currently "acting up." She denies any shortness of breath. Source of History: patient Onset: 6 hours ago Position: chest Symptom Intensity: 4/10 Quality: ache Timing: constant Associated Symptoms: + rash (cellulitis to the right leg), No SOB Note: She has right sided facial pain secondary to her trigeminal neuralgia. Review of Systems All systems have been listed, reviewed, and are negative other than those previously mentioned. Please see Additional Medical History Sheet. Past Medical & Surgical Medical Problems: (1) Cellulitis of right lower extremity (2) Coronary artery disease (3) Deep vein thrombosis (4) History of DVT of lower extremity (5) Hypertension (6) PE (pulmonary embolism) (7) Ulcerative colitis Surgical Problems: (1) H/O cardiac catheterization (2) H/O ileostomy (3) H/O percutaneous transluminal coronary angioplasty (4) History of lumpectomy Family History FH: cancer FH: heart disease Hypertension Social History Smoking Status: Never Smoker Alcohol Use: none Drug Use: none Marital Status: Housing Status: lives with family Occupation Status: retired Current/Historical Medications Scheduled Amlodipine Besylate (Norvasc), 5 MG PO BID Ceftriaxone Sodium (Rocephin), 1 GM IV DAILY Clopidogrel (Plavix), 75 MG PO DAILY Ferrous Sulfate (Ferrous Sulfate), 325 MG PO BIDM Fluconazole (Diflucan), 100 MG PO DAILY Furosemide (Furosemide), 20 MG PO DAILY Gabapentin (Gabapentin), 600 MG PO TID Isosorbide Mononitrate Ext Rel (Imdur Ext Rel), 90 MG PO QAM Lidocaine (Lidoderm Patch 5%), 1 PATCH TD ONAMOFFPM Magnesium Oxide (Magnesium-Oxide), 400 MG PO DAILY Metoprolol Succ (Toprol Xl) (Toprol-Xl), 25 MG PO DAILY Multivitamins/Minerals (Mvi With Minerals), 1 TAB PO DAILY Nystatin (Nystatin Suspension), 5 ML MT QID Oxcarbazepine (Trileptal), 150 MG PO QID Pantoprazole (Protonix), 40 MG PO DAILYBB Potassium Ext Rel (Klor-Con), 20 MEQ PO TIDM Ranolazine (Ranexa), 500 MG PO BID Warfarin Sodium (Warfarin Sodium), Unknown Dose PO HS Scheduled PRN Acetaminophen (Apap Extra Strength), 500 MG PO Q4 PRN for Pain or Fever Bisacodyl (Bisacodyl Laxative), 10 MG [place] DAILY PRN for Constipation Magnesium Hydroxide (Milk Of Magnesia), 30 ML PO DAILY PRN for Constipation Oxycodone Ir (Roxicodone Ir), 1-2 TAB PO Q4H PRN for mod-svr pain Polyethylene Glycol 3350 (Miralax), 17 GM PO DAILY PRN for Constipation Saline ([place] Nasal [place]), 1 SPRAY FORREST Q3H PRN for dry nasal passages Sodium Phosphate/Biphosphate (Fleet Enema), 1 EA [place] DAILY PRN for Constipation Tramadol Hcl (Ultram), 50 MG PO Q4H PRN for Moderate Pain Allergies Coded Allergies: Sodium Lauryl Sulfate (Verified Allergy, Intermediate, HIVES & WELTS, 11/10) BEE STING (Verified Allergy, Unknown, ANAPHYLAXIS, 11/11/15) Physical Exam Vital Signs Date Time Temp Pulse Resp B/P (MAP) Pulse Ox O2 Delivery O2 Flow Rate FiO2 01/12/17 15:07 62 16 130/82 01/12/17 14:12 63 16 123/77 01/12/17 13:39 76 01/12/17 13:28 71 16 141/93 01/12/17 12:40 64 16 129/76 94 Nasal Cannula 4.0 01/12/17 11:23 94 Room Air 4.0 01/12/17 11:23 88 Room Air 4.0 01/12/17 11:22 74 16 126/74 86 Nasal Cannula 4.0 Nebulizer 01/12/17 10:31 87 01/12/17 10:23 36.5 87 16 130/83 98 Room Air Physical Exam GENERAL: Patient awake, alert, oriented x 3. Patient follows commands. Patient does not appear toxic. Patient is adequately hydrated and well- nourished. SKIN: No erythema, pallor or cyanosis HEENT: Normal head, pupils equal, reactive to light and accommodation. No signs of trauma or infection to the face. Ears normal. Oral cavity and posterior pharynx appear normal. Neck: Without adenopathy, no neck vein distention. LUNGS: Clear to auscultation. No wheezes, no rales, no rhonchi. HEART: Irregular rate with an irregular rhythm. 3/6 systolic murmurs. No gallops. No rubs ABDOMEN: Colostomy in place in the RLQ. Soft and nontender. EXTREMITIES: A wrap to the right lower leg with underlying cellulitis. No signs of trauma. No pedal or pretibial edema. No calf or thigh tenderness. NEUROLOGIC: Cranial nerves II-XII within normal limits. No gross motor sensory function deficits. Medical Decision & Procedures ER Provider Diagnostic Interpretation: Radiology results as stated below per my review and radiologist interpretation: CHEST ONE VIEW PORTABLE CLINICAL HISTORY: chest pain chest pain COMPARISON STUDY: 12/31/2016 FINDINGS: Mildly progressive cardiomegaly. Congestive failure progressive from the prior study. Bipolar cardiac pacemaker in acceptable position. Interval development of small bilateral pleural effusions. IMPRESSION: Congestive heart failure progressive from the prior exam The above report was generated using voice recognition software. It may contain grammatical, syntax or spelling errors. Electronically signed by: Adria Smiley M.D. 01/12/2017 11:01 AM Dictated Date/Time: 01/12/2017 10:59 AM Laboratory Results 01/12/17 11:33 01/12/17 11:33 Test 01/12/17 11:33 Red Blood Count 3.20 M/uL (4.2-5.4) Mean Corpuscular Volume 88.1 fL (80-100) Mean Corpuscular Hemoglobin 28.8 pg (25-34) Mean Corpuscular Hemoglobin Concent 32.6 g/dl (32-36) RDW Standard Deviation 51.1 fL (36.4-46.3) RDW Coefficient of Variation 15.9 % (11.5-14.5) Mean Platelet Volume 8.9 fL (7.4-10.4) Anion Gap 9.0 mmol/L (3-11) Est Creatinine Clear Calc Drug Dose 52.9 ml/min Estimated GFR () 75.1 Estimated GFR (Non- 64.8 BUN/Creatinine Ratio 23.3 (10-20) Calcium Level 8.8 mg/dl (8.5-10.1) Troponin I 0.029 ng/ml (0-0.045) Pro-B-Type Natriuretic Peptide 7435 pg/ml (0-1800) Laboratory results as stated above per my review. Medications Administered Medications (Trade) Dose Ordered Sig/Darrick Route Start Time Stop Time Status Last Admin Dose Admin Furosemide (Lasix Inj) 40 mg NOW STAT IV 01/12/17 13:58 01/12/17 13:59 DC 01/12/17 15:41 40 MG ECG Indication: chest pain Rate (beats per minute): 84 Rhythm: sinus rhythm Findings: 1st degree AV block, RBBB, no acute ischemic change, no ectopy, other (LAFB) ED Course 1041: Past medical records reviewed. The patient was evaluated in room B8. A complete history and physical examination was performed. 1045: Ordered Morphine Sulfate 2 mg IV 1358: Ordered Lasix Inj 40 mg IV 1513: Upon reevaluation, the patient is resting. I discussed today's findings with her. She verbalized agreement of the treatment plan. I spoke with Dr. Sterling of the [facility] to evaluate the patient for further management. 1615: Upon evaluation, I updated the patient. She has urinated a large amount since receiving the Lasix. Medical Decision I considered multiple diagnoses including myocardial infarction, chest wall pain , pericarditis, myocarditis, aortic emergencies, pulmonary embolism, congestive heart failure, GI causes, cellulitis, trigeminal neuroalgia, and other significant cardiopulmonary disorders. Multiple labs, EKG and imaging were obtained. Chest x-ray is consistent with congestive heart failure. This is most likely the cause of her chest discomfort earlier today. The patient was given IV Lasix. Troponin is not elevated. EKG reveals no acute changes. I discussed care with the patient and her sister. I also discussed care with the hospitalist. The patient will require further evaluation. She was given IV Lasix here and will most likely require additional diuretics. The patient will also require further evaluation of her cellulitis. Medication Reconcilliation Current Medication List: was personally reviewed by me Blood Pressure Screening Patient's blood pressure: Normal blood pressure Blood pressure disposition: Did not require urgent referral Consults Time Called: 1510 Consulting Physician: Dr. Asher Pardaa [facility] [place] Returned Call: 1513 Discussed the patient's case with him. The patient will be evaluated for further management. Impression Primary Impression: CHF (congestive heart failure) Additional Impression: Cellulitis of right lower extremity Scribe Attestation The scribe's documentation has been prepared under my direction and personally reviewed by me in its entirety. I confirm that the note above accurately reflects all work, treatment, procedures, and medical decision making performed by me. Departure Information Dispostion Being Evaluated By Hospitalist Referrals No Doctor, Assigned (PCP) Patient Instructions My [facility] Problem Qualifiers
--- NOTE | 2017-01-12 11:03 | DIAGNOSTIC IMAGING REPORT ---
CHEST ONE VIEW PORTABLE CLINICAL HISTORY: chest pain chest pain COMPARISON STUDY: 12/31/2016 FINDINGS: Mildly progressive cardiomegaly. Congestive failure progressive from the prior study. Bipolar cardiac pacemaker in acceptable position. Interval development of small bilateral pleural effusions. IMPRESSION: Congestive heart failure progressive from the prior exam The above report was generated using voice recognition software. It may contain grammatical, syntax or spelling errors. Electronically signed by: Adria Smiley M.D. 01/12/2017 11:01 AM Dictated Date/Time: 01/12/2017 10:59 AM
[2017-01-12 11:51] LABS: HEMATOCRIT 28.2 % (37-47); MEAN CELL VOLUME 88.1 fL (80-100); MEAN CORPUSCULAR HEMOGLOBIN 28.8 pg (25-34); MEAN CORPUSCULAR HGB CONC 32.6 g/dl (32-36); MEAN PLATELET VOLUME 8.9 fL (7.4-10.4); PLATELET COUNT 337 K/uL (130-400); WHITE BLOOD COUNT 6.09 K/uL (4.8-10.8)
[2017-01-12] MEDS ORDERED: POTA20TA16 PO (11:53)
[2017-01-12] MEDS ORDERED: FLUC100T4 PO (11:53)
[2017-01-12] MEDS ORDERED: ISOS30TA35 PO (11:53)
[2017-01-12] MEDS ORDERED: ACET-176 PO (11:53)
[2017-01-12] MEDS ORDERED: MULT-513 PO (11:53)
[2017-01-12] MEDS ORDERED: ULT/50 PO (11:53)
[2017-01-12] MEDS ORDERED: PANT40TA PO (11:53)
[2017-01-12] MEDS ORDERED: MOML PO (11:53)
[2017-01-12] MEDS ORDERED: NYSS/ MT (11:53)
[2017-01-12] MEDS ORDERED: BISA1SUP4 PR (11:53)
[2017-01-12] MEDS ORDERED: OXYC1TAB3 PO (11:53)
[2017-01-12] MEDS ORDERED: POLY335019 PO (11:53)
[2017-01-12] MEDS ORDERED: NF656 TD (11:53)
[2017-01-12] MEDS ORDERED: SALI0.6510 NAE (11:53)
[2017-01-12] MEDS ORDERED: SODIENE PR (11:53)
[2017-01-12 12:08] LABS: BUN/CREATININE RATIO 23.3 (10-20); CALCIUM 8.8 mg/dl (8.5-10.1); CREATININE 0.83 mg/dl (0.60-1.20); POTASSIUM 3.6 mmol/L (3.5-5.1)
[2017-01-12] MEDS ORDERED: FUROSEMIDE 40 MG/4 ML VIAL IV STA (13:58)
[2017-01-12] MEDS ORDERED: BISACODYL 10 MG SUPP PR PRN (15:45)
[2017-01-12] MEDS ORDERED: ONDANSETRON INJ 2 MG/ML 2 ML VIAL IV PRN (15:45)
--- NOTE | 2017-01-12 15:52 | History and Physical ---
History & Physical Date & Time of Service: Jan 12, 2017 at 15:33 Chief Complaint: Chest Pain Primary Care Physician: No Doctor, Assigned History of Present Illness Source: patient, family (sister) Pt is a 86 yo female who presents to the ER with complaints of chest pain that began this AM. Pt states that pain did now wake her up from sleep but she noticed it when she was sitting up in her bed. Pt reports pain was in the center of her chest with no radiation and lasted till this afternoon upon her visit to the ER. Pt is currently at [facility] where she she being treated with IV antibiotics for right lower extremity cellulitis. Pt currently denies any chest pain, shortness of breath, fevers, chills, N/V/D. Past Medical/Surgical History Medical Problems: (1) Coronary artery disease Status: Chronic (2) Deep vein thrombosis Status: Resolved (3) History of DVT of lower extremity Status: Chronic (4) Hypertension Status: Chronic (5) PE (pulmonary embolism) Status: Resolved (6) Ulcerative colitis Status: Resolved Surgical Problems: (1) H/O cardiac catheterization Status: Resolved (2) H/O ileostomy Status: Chronic (3) H/O percutaneous transluminal coronary angioplasty Status: Resolved (4) History of lumpectomy Status: Resolved Family History FH: cancer FH: heart disease Hypertension Social History Smoking Status: Never Smoker Drug Use: none Marital Status: Housing status: lives with family Occupational Status: retired Immunizations History of Influenza Vaccine: Yes Influenza Vaccine Date: Jan 01, 2013 History of Tetanus Vaccine?: UTD History of Pneumococcal: Yes Pneumococcal Date: May 03, 2011 History of Hepatitis B Vaccine: No Multi-Drug Resistant Organisms History of MDRO: No Allergies Coded Allergies: Sodium Lauryl Sulfate (Verified Allergy, Intermediate, HIVES & WELTS, 11/10) BEE STING (Verified Allergy, Unknown, ANAPHYLAXIS, 11/11/15) Home Medications Scheduled Amlodipine Besylate (Norvasc), 5 MG PO BID Ceftriaxone Sodium (Rocephin), 1 GM IV DAILY Clopidogrel (Plavix), 75 MG PO DAILY Ferrous Sulfate (Ferrous Sulfate), 325 MG PO BIDM Fluconazole (Diflucan), 100 MG PO DAILY Furosemide (Furosemide), 20 MG PO DAILY Gabapentin (Gabapentin), 600 MG PO TID Isosorbide Mononitrate Ext Rel (Imdur Ext Rel), 90 MG PO QAM Lidocaine (Lidoderm Patch 5%), 1 PATCH TD ONAMOFFPM Magnesium Oxide (Magnesium-Oxide), 400 MG PO DAILY Metoprolol Succ (Toprol Xl) (Toprol-Xl), 25 MG PO DAILY Multivitamins/Minerals (Mvi With Minerals), 1 TAB PO DAILY Nystatin (Nystatin Suspension), 5 ML MT QID Oxcarbazepine (Trileptal), 150 MG PO QID Pantoprazole (Protonix), 40 MG PO DAILYBB Potassium Ext Rel (Klor-Con), 20 MEQ PO TIDM Ranolazine (Ranexa), 500 MG PO BID Warfarin Sodium (Warfarin Sodium), Unknown Dose PO HS Scheduled PRN Acetaminophen (Apap Extra Strength), 500 MG PO Q4 PRN for Pain or Fever Bisacodyl (Bisacodyl Laxative), 10 MG [place] DAILY PRN for Constipation Magnesium Hydroxide (Milk Of Magnesia), 30 ML PO DAILY PRN for Constipation Oxycodone Ir (Roxicodone Ir), 1-2 TAB PO Q4H PRN for mod-svr pain Polyethylene Glycol 3350 (Miralax), 17 GM PO DAILY PRN for Constipation Saline ([place] Nasal [place]), 1 SPRAY FORREST Q3H PRN for dry nasal passages Sodium Phosphate/Biphosphate (Fleet Enema), 1 EA [place] DAILY PRN for Constipation Tramadol Hcl (Ultram), 50 MG PO Q4H PRN for Moderate Pain Review of Systems Constitutional: No fever, No chills, No sweats, No weakness Eyes: No worsening of vision, No eye pain, No redness, No discharge Respiratory: + shortness of breath, No cough, No sputum, No wheezing Cardiovascular: + edema, No chest pain, No orthopnea, No PND Abdomen: No pain, No nausea, No vomiting, No diarrhea Musculoskeletal: + swelling (right lower extremity swelling), No joint pain, No muscle pain, No calf pain Genitourinary - Female: No dysuria, No urinary frequency, No urinary urgency, No urinary incontinence Neurologic: No memory loss, No paralysis, No weakness, No numbness/tingling Psychiatric: No depression symptoms, No anhedonism, No anxiety, No insomnia Endocrine: No fatigue, No excessive thirst, No excessive urination Integumentary: No rash, No itch Physical Exam Vital Signs Date Time Temp Pulse Resp B/P (MAP) Pulse Ox O2 Delivery O2 Flow Rate FiO2 01/12/17 15:07 62 16 130/82 01/12/17 14:12 63 16 123/77 01/12/17 13:39 76 01/12/17 13:28 71 16 141/93 01/12/17 12:40 64 16 129/76 94 Nasal Cannula 4.0 01/12/17 11:23 94 Room Air 4.0 01/12/17 11:23 88 Room Air 4.0 01/12/17 11:22 74 16 126/74 86 Nasal Cannula 4.0 Nebulizer 01/12/17 10:31 87 01/12/17 10:23 36.5 87 16 130/83 98 Room Air General Appearance: WD/WN, no apparent distress Head: normocephalic, atraumatic Eyes: normal inspection, PERRL, EOMI, sclerae normal Neck: supple, no adenopathy, thyroid normal, no JVD Respiratory/Chest: chest non-tender, + decreased breath sounds, + crackles Cardiovascular: regular rate, rhythm, no gallop, no JVD, no murmur Abdomen/GI: normal bowel sounds, non tender, soft, no organomegaly Extremities/Musculoskelatal: no calf tenderness, normal capillary refill, + pedal edema, + pertinent finding (right lower ext swelling and redness, in bandage) Neurologic/Psych: alert, normal mood/affect, normal reflexes, oriented x 3 Skin: normal color, warm/dry, no rash Lymphatic: no adenopathy Diagnostics Laboratory Results Results Past 24 Hours Test 01/12/17 11:33 Range/Units White Blood Count 6.09 4.8-10.8 K/uL Red Blood Count 3.20 4.2-5.4 M/uL Hemoglobin 9.2 12.0-16.0 g/dL Hematocrit 28.2 37-47 % Mean Corpuscular Volume 88.1 80-100 fL Mean Corpuscular Hemoglobin 28.8 25-34 pg Mean Corpuscular Hemoglobin Concent 32.6 32-36 g/dl RDW Standard Deviation 51.1 36.4-46.3 fL RDW Coefficient of Variation 15.9 11.5-14.5 % Platelet Count 337 130-400 K/uL Mean Platelet Volume 8.9 7.4-10.4 fL Sodium Level 131 136-145 mmol/L Potassium Level 3.6 3.5-5.1 mmol/L Chloride Level 94 98-107 mmol/L Carbon Dioxide Level 28 21-32 mmol/L Anion Gap 9.0 3-11 mmol/L Blood Urea Nitrogen 19 7-18 mg/dl Creatinine 0.83 0.60-1.20 mg/dl Est Creatinine Clear Calc Drug Dose 52.9 ml/min Estimated GFR () 75.1 Estimated GFR (Non- 64.8 BUN/Creatinine Ratio 23.3 10-20 Random Glucose 123 70-99 mg/dl Calcium Level 8.8 8.5-10.1 mg/dl Troponin I 0.029 0-0.045 ng/ml Pro-B-Type Natriuretic Peptide 7435 0-1800 pg/ml Impression Assessment and Plan Pt is a 86 yo female with chest pain that started this AM at rest Chest pain rule out ACS in setting of coronary artery disease status post angioplasty and stenting with 4 drug-eluding stents to the proximal RCA and at the bifurcation of the PDA and the posterior lateral branch with drug-eluding stent 06/2014. Pt also noted to be in acute on chronic diastolic CHF Cont to trend trops at this time Start on lasix 40 IV daily due to congestion noted on CXR EKG determined no ischemic changes Pt currently denies any chest pain Recent ECHO earlier this month EF 55-60%, diastolic dysfunction Cont plavix, imdur, toprol and ASA at this time Right Lower Extremity Cellulitis No sign of worsening infection Cont IV rocephin that was started on previous admission Infectious disease and wound nurse consulted Hypertension Continue at home Amlodipine 5 mg BID Hx chronic right lower extremity superficial femoral thrombus Hold coumadin 5 mg PO daily as INR 3.9 Pt is FULL CODE
[2017-01-12] MEDS ORDERED: WARFARIN SOD 5 MG TAB PO SCH (16:00)
[2017-01-12 16:14] VITALS: Ht 157.5 cm; Wt 84.2 kg
[2017-01-12] MEDS ORDERED: IV FLUIDS COMPLETED PRN (16:45)
[2017-01-12 17:11] VITALS: BP 110/73; PULSE 79; TEMP 36.6; O2SAT 95; O2SAT 96
[2017-01-12] MEDS ORDERED: INFLUENZA ADMINISTRATION CHARGE ONE (17:15)
[2017-01-12] MEDS ORDERED: INFLUENZA VACCINE HIGH DOSE 65+ 0.5 ML SYR IM. ONE (17:15)
[2017-01-12 18:03] LABS: PROTHROMBIN TIME (PATIENT) 43.6 SECONDS (9.0-12.0)
[2017-01-12 18:06] LABS: INR 3.9 (0.9-1.1)
[2017-01-12] MEDS: OXCARBAZEPINE 150 MG TAB PO SCH ×2 (18:10→21:29)
[2017-01-12] MEDS: CEFTRIAXONE SOD INJ 1 GM in DEXTROSE 5% ADD-VANTAGE 50ML 50 ML IV SCH (18:10)
[2017-01-12] MEDS: FERROUS SULFATE 325 MG TAB PO SCH (18:10)
[2017-01-12] MEDS ORDERED: NITROGLYCERIN 0.4 MG SL PER TAB CHARGE SL PRN (18:45)
[2017-01-12 19:05] VITALS: BP 120/75; PULSE 65; TEMP 36.4; O2SAT 94
[2017-01-12] MEDS: TRAMADOL HCL 50 MG TAB PO PRN (19:57)
--- NOTE | 2017-01-12 20:59 | Progress Note ---
Progress Note Date of Service Jan 12, 2017. Progress Note Paged by nursing regarding device interrogation order: Spoke with [employer] commercial pest control representative, made note that patient does not have [employer] device Per commercial pest control representative, patient was uncertain what device it was thinks it may be ? biotronic? No indication that immediate interrogation was required and patients vitals appear stable Day team: can discuss further with patient/cardiology to determine device brand so interrogation can be done as necessary
[2017-01-12] MEDS: AMLODIPINE BESYLATE 5 MG TAB PO SCH (21:30)
[2017-01-12] MEDS: RANOLAZINE 500 MG ER TAB PO SCH (21:30)
[2017-01-12] MEDS: GABAPENTIN 600 MG TAB PO SCH (21:32)
[2017-01-13] VITALS (10 sets, daily range): BP systolic 102–136; BP diastolic 67–83; PULSE 61–84; TEMP 36.5–37.2; O2SAT 91–98
[2017-01-13] MEDS: FERROUS SULFATE 325 MG TAB PO SCH ×2 (05:53→15:47)
[2017-01-13] MEDS: PANTOprazole SOD 40 MG TAB PO SCH (05:53)
[2017-01-13] MEDS: OXCARBAZEPINE 150 MG TAB PO SCH ×3 (05:54→18:13)
[2017-01-13 07:39] LABS: INR 3.1 (0.9-1.1); PROTHROMBIN TIME (PATIENT) 34.2 SECONDS (9.0-12.0)
[2017-01-13 08:21] LABS: BASO % 0.5 %; BASO ABS # 0.03 K/uL (0-0.2); COMPLETE YES; HEMATOCRIT 29.9 % (37-47); IG% 0.2 %; LYMPH % 19.6 %; MEAN CORPUSCULAR HEMOGLOBIN 27.7 pg (25-34); MEAN CORPUSCULAR HGB CONC 31.1 g/dl (32-36); MEAN PLATELET VOLUME 9.1 fL (7.4-10.4); MONO % 13.4 %; NEUT % 63.3 %; PLATELET COUNT 341 K/uL (130-400); RED BLOOD COUNT 3.36 M/uL (4.2-5.4); WHITE BLOOD COUNT 5.61 K/uL (4.8-10.8)
[2017-01-13 08:24] LABS: BUN/CREATININE RATIO 17.1 (10-20); CALCIUM 9.3 mg/dl (8.5-10.1); CREATININE 0.97 mg/dl (0.60-1.20); MAGNESIUM 1.8 mg/dl (1.8-2.4); POTASSIUM 3.5 mmol/L (3.5-5.1)
[2017-01-13] MEDS ORDERED: METOPROLOL SUCC 25MG EXT REL TAB PO SCH (09:00)
[2017-01-13] MEDS ORDERED: ISOSORBIDE MONONITRATE 30 MG TABCR PO SCH (09:00)
[2017-01-13] MEDS: LIDODERM (LIDOCAINE) PATCH 5% TD SCH (09:00)
[2017-01-13] MEDS: GABAPENTIN 600 MG TAB PO SCH ×3 (09:15→21:32)
[2017-01-13] MEDS: RANOLAZINE 500 MG ER TAB PO SCH ×2 (09:15→21:31)
[2017-01-13] MEDS: AMLODIPINE BESYLATE 5 MG TAB PO SCH ×2 (09:15→21:31)
[2017-01-13] MEDS: FUROSEMIDE INJ 40 MG in SYRINGE 0 ML IV SCH (09:15)
[2017-01-13] MEDS: CLOPIDOGREL BISULFATE 75 MG TAB PO SCH (09:15)
[2017-01-13] MEDS ORDERED: METOPROLOL SUCC 50MG EXT REL TAB PO ONE (09:30)
--- NOTE | 2017-01-13 10:34 | Progress Note ---
Progress Note Date of Service Jan 13, 2017. Progress Note ID Consult Dictated #[id number] A/P: 1. RLE wound/cellulitis - h/o GCS, MSSA -Continue abx, will need continued wound care follow up -would continue at least 14 days, can follow with ID as outpt at wound center to reassess and adjust duration -thank you
--- NOTE | 2017-01-13 11:05 | Hospitalist Progress Note ---
Hospitalist Progress Note Date of Service Jan 13, 2017. (Yue Salazar ., SHARADC) Subjective Pt evaluation today including: conversation w/ patient, conversation w/ family (daughter and sister at bedside), physical exam, chart review, lab review, review of studies, review of inpatient medication list Pain: 5/10 sharp RLE pain PO Intake: Tolerating PO diet but poor appetite Voiding: viera catheter in place Patient reports feeling okay. She denies any shortness of breath or chest pain currently. Her main complaint is a 5/10 sharp pain in her RLE. The pain is worse at the back of her calf and lateral ankle. She also states that she has had a poor appetite and is asking for Boost supplements. Viera catheter is in place. The patient denies fevers, chills, sweats, chest pain, palpitations, claudication, cough, wheezing, shortness of breath, nausea, vomiting, abdominal pain, dysuria, hematuria, urinary retention, paralysis, weakness, numbness and tingling. Additional Comments: See HPI for pertinent positives and negatives. All other systems reviewed and negative. (Yue Salazar ., SANDRA-C) Objective Vital Signs Date Time Temp Pulse Resp B/P (MAP) Pulse Ox O2 Delivery O2 Flow Rate FiO2 01/13/17 08:00 Nasal Cannula 4.0 01/13/17 07:34 36.9 84 20 126/81 (96) 95 Nasal Cannula 4.0 01/13/17 04:00 Nasal Cannula 4.0 01/13/17 04:00 36.5 83 16 115/68 (84) 95 Nasal Cannula 4.0 01/13/17 00:02 36.7 63 16 136/79 (98) 97 Nasal Cannula 4.0 01/13/17 00:02 Nasal Cannula 4.0 01/12/17 20:00 Nasal Cannula 4.0 01/12/17 19:05 36.4 65 18 120/75 (90) 94 Nasal Cannula 4.0 01/12/17 17:11 96 Nasal Cannula 4.0 01/12/17 17:11 36.6 79 20 110/73 (85) 95 Nasal Cannula 4.0 01/12/17 16:14 Nasal Cannula 4.0 01/12/17 15:47 62 20 117/69 96 Nasal Cannula 4.0 01/12/17 15:07 62 16 130/82 01/12/17 14:12 63 16 123/77 01/12/17 13:39 76 01/12/17 13:28 71 16 141/93 01/12/17 12:40 64 16 129/76 94 Nasal Cannula 4.0 01/12/17 11:23 94 Room Air 4.0 01/12/17 11:23 88 Room Air 4.0 01/12/17 11:22 74 16 126/74 86 Nasal Cannula 4.0 Nebulizer 01/12/17 10:31 87 (Yue Salazar ., PA-C) Physical Exam Notes: General appearance: +Obese. Well-developed, well-nourished, no apparent distress Head: Normocephalic, atraumatic Eyes: Normal inspection, PERRL, EOMI ENT: Normal ENT inspection, hearing grossly normal, pharynx normal Neck: Supple, no JVD, trachea midline Respiratory/Chest: +Decreased breath sounds in bases. Crackles right base. 4L NC. No respiratory distress Cardiovascular: +Systolic murmur. Regular rate & rhythm, no gallop Abdomen/GI: +RLL ileostomy. Normal bowel sounds, non-tender, soft Extremities/Musculoskeletal: +RLE erythematous, warm from ankle to upper calf. 2-3+ pitting edema. Very TTP especially back of calf and lateral ankle. Neurological/Psych: Alert, normal mood/affect, oriented x 3 Skin: Normal color, warm/dry, no rash (Yue Salazar ., PA-C) Laboratory Results Last 24 Hours Test 01/12/17 11:33 01/13/17 06:59 White Blood Count 6.09 K/uL 5.61 K/uL Red Blood Count 3.20 M/uL 3.36 M/uL Hemoglobin 9.2 g/dL 9.3 g/dL Hematocrit 28.2 % 29.9 % Mean Corpuscular Volume 88.1 fL 89.0 fL Mean Corpuscular Hemoglobin 28.8 pg 27.7 pg Mean Corpuscular Hemoglobin Concent 32.6 g/dl 31.1 g/dl RDW Standard Deviation 51.1 fL 52.0 fL RDW Coefficient of Variation 15.9 % 16.3 % Platelet Count 337 K/uL 341 K/uL Mean Platelet Volume 8.9 fL 9.1 fL Prothrombin Time 43.6 SECONDS 34.2 SECONDS Prothromb Time International Ratio 3.9 3.1 Sodium Level 131 mmol/L 132 mmol/L Potassium Level 3.6 mmol/L 3.5 mmol/L Chloride Level 94 mmol/L 94 mmol/L Carbon Dioxide Level 28 mmol/L 30 mmol/L Anion Gap 9.0 mmol/L 8.0 mmol/L Blood Urea Nitrogen 19 mg/dl 17 mg/dl Creatinine 0.83 mg/dl 0.97 mg/dl Est Creatinine Clear Calc Drug Dose 52.9 ml/min 45.3 ml/min Estimated GFR () 75.1 62.2 Estimated GFR (Non- 64.8 53.6 BUN/Creatinine Ratio 23.3 17.1 Random Glucose 123 mg/dl 99 mg/dl Calcium Level 8.8 mg/dl 9.3 mg/dl Troponin I 0.029 ng/ml 0.034 ng/ml Pro-B-Type Natriuretic Peptide 7435 pg/ml Neutrophils (%) (Auto) 63.3 % Lymphocytes (%) (Auto) 19.6 % Monocytes (%) (Auto) 13.4 % Eosinophils (%) (Auto) 3.0 % Basophils (%) (Auto) 0.5 % Neutrophils # (Auto) 3.55 K/uL Lymphocytes # (Auto) 1.10 K/uL Monocytes # (Auto) 0.75 K/uL Eosinophils # (Auto) 0.17 K/uL Basophils # (Auto) 0.03 K/uL Immature Granulocyte % (Auto) 0.2 % Immature Granulocyte # (Auto) 0.01 K/uL Magnesium Level 1.8 mg/dl (Yue Salazar, SHARADC) Assessment and Plan 86 y/o female with a history of chronic diastolic CHF, CAD s/p stents, HTN, HLD , CKD stage III, trigeminal neuralgia, depression, ulcerative colitis s/p ileostomy and GERD who presents to the ED on 01/12 with chest pain. Acute on chronic diastolic heart failure--stable -Admit to telemetry. On observation. Pt in paced rhythm with PVCs, HR 60s-70s -Daily weights, strict I's & O's -Lasix 40 mg IV qd -UO 1550, net balance -1225 cc on 01/12 -Echo 12/23/16 shows grade II diastolic dysfunction. LVEF 55-60%. No wall motion abnormalities. -Continue metoprolol -Cardiology consulted, appreciate recs Chest pain--resolved -Troponins negative -EKGs no ischemic changes RLE cellulitis--stable. Pt still with erythema, warm, edema and tenderness -Consult infectious disease, appreciate recs: Continue abx at least 14 days -Continue Rocephin 1 gm IV qd. Day #2 of 14. -Wound care nurse consulted Oral candidiasis--improving -Continue Diflucan 100 mg PO qd. Day #9 of 10 CAD s/p stents, HTN--stable -Continue Plavix 75 mg PO qd, Norvasc 5 mg PO BID, Ranexa 500 mg PO BID -Imdur increased to 120 mg PO qd -Metoprolol succinate increased to 50 mg PO qd CKD stage III--stable -Creatinine stable, at baseline Trigeminal neuralgia -Continue gabapentin 600 mg PO TID and Trileptal 150 mg PO QID AAA at 6 cm -Pt follows with Dr. Martinez, last saw late November -Dr. Martinez and Dr. Clark aware, want to watch and wait as she would be high surgical risk, pt verbalizes understanding and does not want intervention now Chronic DVT/PE with h/o IVC filter: -INR supratherapeutic on admission at 3.9 -INR 3.1 on 01/13 -Reduce warfarin to 2.5 mg PO qd GERD -Continue Protonix DVT prophylaxis -Warfarin therapeutic Code Status -Level I, FULL RESUSCITATION STATUS (Yue Salazar ., DOYLE) Reviewed: Pt Seen/Exam by Me (Mckayla Blunt MD) History Physician Manager Fashion Supervision Note: I interviewed and examined the patient. Discussed with SNADRA Salazar and agree with findings and plan as documented in the note. Any exceptions or clarifications are listed here: Pt feeling better, legs less swollen, less SOB. Has O2 off while at rest now. No further CP since admission. Tele reviewed, Vitals reviewed, I/Os show diuresis NAD, AAOx3 OP clear, no thrush RRR +3/6 systolic murmur at apex radiating to axilla, also with 2/6 LEROY at RUSB Lungs with faint crackles at bases bilat Abd +BS, soft, NT ND, colostomy bag in place with liquid stool Ext Right foot with 2+ pitting edema and now with wrinkles in skin, barely palpable DP pulse, kerlix wrap and dressing just replaced right leg and did not remove 86 yo female here with typical angina likely secondary to acute on chronic diastolic CHF and increased cardiac demand. Angina now resolved -appreciate Cardiology recs to increase Imdur and Toprol for antianginal effect and for improved cardiac output -continue Rocephin for 14 more days and f/u with Wound Clinic and ID as outpt -continue diuresis with IV lasox, watch lytes and renal function -f/u with Ortho in 4 weeks, WBAT, and Ortho had requested arterial Dopplers which were to be done today-ordered here -Mitral valve stenosis and regurg/Aortic stenosis--> watch extremes of fluid status -coumadin for DVT proph-follow INR closely given antibiotics -dc Diflucan as has prolonged QT and INR high, thrush resolved Documented By: Mckayla Blunt (Mckayla Blunt MD)
[2017-01-13] MEDS ORDERED: BOOST PLUS VANILLA PO SCH ×2 (11:30)
[2017-01-13] MEDS ORDERED: FLUCONAZOLE 100 MG TAB PO SCH (11:30)
[2017-01-13] MEDS: OXYCODONE HCL IR 5 MG TAB (IMMEDIATE RELEASE) PO PRN ×2 (12:45→15:46)
--- NOTE | 2017-01-13 13:00 | CARDIOLOGY CONSULTATION REPORT ---
DATE OF CONSULTATION: 01/13/2017 REASON FOR CONSULTATION: 1. Chest Tightness in the patient with known CAD. 2. History of 4 intracoronary drug-eluting stents (RCA x 2, right PDA, and right DAVE). 3. Acute on Chronic Diastolic CHF. HISTORY OF PRESENT ILLNESS: Mrs. Ely is a very pleasant 86-year-old white female with a history of CAD (chronically occluded, but collateralized mid LAD, RCA drug eluting stents, and drug-eluting stents in the PDA and DAVE), chronic Abdominal Aortic Aneurysm (5.5 x 5.7 cm), chronic stable angina pectoris, moderate pulmonary hypertension, history of DVTs and PE in 1998 (on chronic anticoagulation, s/p IVC filter placement), hypertension, dyslipidemia, TIA, history of trigeminal neuralgia, and osteoporosis, who was admitted acutely on 01/12/2017, complaining of lower anterior chest tightness, which did not radiate and is without associated symptoms. This is a reminiscent of her prior anginal complaints. She noticed the chest tightness early in the morning on 01/12 and it lasted for at least 6 hours, finally going away when she arrived at the Emergency Room. Her troponin I level is within normal limits, but her ProBNP is elevated. The patient was hospitalized in the beginning of December with a right lower extremity cellulitis, for which she is still being treated. She went from our facility to [facility] for ongoing IV antibiotics and physical therapy. She was transferred from [facility] back to our facility with her chest tightness yesterday. The patient has noticed some exertional dyspnea and even occasional dyspnea at rest. She has not had any orthopnea or PND. She states that her body weight is steady, and her leg edema is improving at this point. She denies any palpitations, tachypalpitations, syncope or near syncope. The patient denies any associated nausea, vomiting, or diaphoresis with her chest tightness. MEDICATIONS: 1. Toprol-XL 25 mg daily. 2. Imdur 90 mg daily. 3. Coumadin for a goal INR of 2.0 to 3.0. 4. Lasix 40 mg IV daily. 5. Plavix 75 mg daily. 6. Lidoderm patch 5% apply to the affected area each day. 7. Protonix 40 mg daily. 8. Trileptal 150 mg p.o. q.i.d. 9. Amlodipine 5 mg b.i.d. 10. Neurontin 600 mg t.i.d. 11. Ranexa 500 mg b.i.d. 12. Sublingual nitroglycerin as needed. 13. Ceftriaxone 1 g IV daily. 14. Ferrous sulfate 325 mg b.i.d. 15. Tylenol p.r.n. 16. Zofran p.r.n. 17. Dulcolax p.r.n. 18. OxyIR 5 mg every 4 hours as needed for moderate to severe pain. 19. Tramadol 50 mg p.o. q. 4 hours p.r.n. for moderate pain. ALLERGIES: 1. BEE STINGS. 2. SODIUM LAURETH SULFATE. PAST MEDICAL HISTORY: 1. Multivessel CAD with chronic stable angina pectoris. 2. Occluded mid LAD, collateralized from the distal PDA. 3. History of 2 drug-eluting stents in the right coronary artery. 4. History of right PDA and right DAVE drug-eluting stents in June 2014. 5. Residual high-grade stenosis of D1, D2, and S1. These were all very small vessels with diffuse and severe proximal disease. 6. Moderate pulmonary hypertension. 7. Type 2 diastolic dysfunction. 8. Ulcerative colitis, status post ileostomy. 9. History of DVTs in the right leg with a history of pulmonary embolism in 1998. On chronic Coumadin. Status post IVC filter. 10. Osteoporosis. 11. Trigeminal neuralgia. 12. History of TIA. 13. History of medication-induced hyponatremia. 14. Infrarenal AAA, stable and followed by Dr. Martinez. 15. History of IVC filter. 16. Status post dual-chamber pacemaker placement for bradycardia. 17. History of ileostomy, right lower quadrant. 18. Status post colectomy. 19. History of hysterectomy. 20. History of left TKA. 21. History of right shoulder surgery, reverse total shoulder arthroplasty. 22. History of left breast lumpectomy. SOCIAL HISTORY: The patient is . She is accompanied by her daughter. She does not use tobacco or tobacco products. She does not drink alcohol. Enjoys gardening. FAMILY HISTORY: Significant for prostate cancer in her father. Mother of complications of an SD at the age of 86. She also had cancer and pancreatitis. PHYSICAL EXAMINATION: VITAL SIGNS: Temperature is 36.9 degrees Celsius, pulse is 84 and regular, respiratory rate 18 and unlabored, and blood pressure is 126/81. SpO2 is 95% on 4 liters of oxygen via nasal cannula. I&O's -1875 mL total. Body weight not measured today. GENERAL: The patient is in no acute distress. HEENT: Head is atraumatic and normocephalic. EOMs intact. Sclerae are anicteric. Face is symmetric. No perioral cyanosis. Mucous membranes are moist. NECK: Without JVD. Jugular venous pressure is approximately one-quarter of the way to the angle of the jaw, sitting at a 60-degree angle. CHEST AND LUNGS: Absent breath sounds at bilateral bases. Otherwise diminished breath sounds throughout, no obvious wheezes, rales or rhonchi. CARDIOVASCULAR SYSTEM: S1 and S2 are regular with a grade 2/6 crescendo-decrescendo basal systolic murmur best heard over right second intercostal space, also audible to left sternal border. No diastolic murmur noted. No gallops or rubs. Aortic valve closure sound is audible at both the apex and the base. ABDOMEN: Bowel sounds present. EXTREMITIES: Right leg is dressed. Trace edema. Right lower extremity is tender to palpation. Intact dorsalis pedis pulses bilaterally. Intact radial pulses bilaterally. NEUROLOGIC: The patient is awake, alert and oriented. Pleasant and cooperative. Answers questions appropriately. Speech is clear. Normal movement in all 4 extremities. Gait pattern not assessed. Echocardiogram on 12/23/2016: 1. Normal LV size and systolic function. 2. LVEF 55%-60%, no regional wall motion abnormalities. 3. Mild concentric LVH with grade 2 diastolic dysfunction. 4. Mild to moderate aortic stenosis. 5. Mild mitral stenosis. 6. Moderate mitral regurgitation. 7. Right ventricle not well visualized. 8. Moderately dilated left atrium and mildly dilated right atrium. LABORATORY DATA: WBC count 5.61, hemoglobin 9.3 g/dL, hematocrit 29.9%, and platelet count 341,000. INR supratherapeutic at 3.1. Sodium is 132 mmol/L, potassium 3.5 mmol/L, BUN is 17 mg/dL, creatinine 0.97 mg/dL, and random glucose is 99 mg/dL. Magnesium level normal at 1.8 mg/dL. Troponin I is 0.034 and 0.029 ng/mL. ProBNP elevated at 7435 pg/mL (reference range 0 to 900 pg/mL). Chest x-ray on admission shows mildly progressive cardiomegaly, bilateral pleural effusions, and pulmonary edema is present. EKG on admission shows normal sinus rhythm at a rate of 84 beats per minute with a first degree AV block, RBBB, and LAFB. Poor R-wave progression in precordial leads. When compared to prior study of 12/28/2016, T-wave inversion is no longer evident in the inferior leads and a sinus rhythm has replaced an electronic atrial pacemaker. ASSESSMENT: 1. Acute exacerbation of Chronic Diastolic CHF. 2. Chest tightness consistent with angina pectoris in a patient with known multivessel coronary artery disease (as described above). 3. "Troponin I" level has trended upwards slightly - but is still in the normal range. 4. Status post dual-chamber pacemaker placement. 5. Occluded but collateralized mid LAD. 6. High-grade D1, D2, and septal artery stenoses -- not amenable to PCI. 7. History of 2 RCA drug-eluting stents, history of drug-eluting stents in the right PDA and right DAVE. 8. Preserved LV systolic function. 9. Mild to moderate aortic stenosis. 10. Moderate mitral regurgitation. 11. Mild mitral stenosis. 12. Dyslipidemia. 13. Infrarenal aortic abdominal aneurysm (followed by Dr. Martinez). PLAN: 1. Suspect that the patient experienced an episode of angina pectoris, likely related to an acute exacerbation of diastolic CHF and increased myocardial oxygen demand. 2. Negative fluid balance of greater than 1.8 liters overnight. 3. We will recommend titrating Toprol-XL to 50 mg daily in an effort to slow her heart rate and increase LV diastolic filling time. 4. Titrate Imdur from 90 mg daily to 120 mg daily. 5. Closely monitor daily I&O's and body weights. 6. Maintain a 2-g low sodium diet. 7. Continue IV antibiotics for right lower extremity cellulitis. 8. We will continue to follow along while hospitalized. CALISTA
--- NOTE | 2017-01-13 13:51 | INFECT. DISEASE CONSULTATION ---
DATE OF CONSULTATION: 01/13/2017 REQUESTING PHYSICIAN: Dr. Sterling. HISTORY OF PRESENT ILLNESS: This is an 86-year-old female who was recently admitted to the hospital and discharged on IV Rocephin to complete an additional 10-day course for a right lower extremity wound. She did have cultures from the 22 of December which grew group C strep and MSSA. She did undergo an aspirate of the joint by orthopedic surgery and those cultures were negative. She did have plans to follow at the wound care center and actually had her first appointment scheduled for later today; however, she was admitted over the weekend with chest pain. She is currently undergoing a cardiac workup. She remains on Rocephin. Her PICC line remains in place. She is tolerating her antibiotics well. She did not have any micro ordered on this admission. Her white blood cell count is stable at 5.6. She is afebrile. Now she is to be evaluated by the wound care team later this morning in the hospital. Currently, she states she does have some pain in the right ankle. She has no pain in the knee. She states her swelling has decreased since being admitted to the hospital, but she is also being treated with intravenous diuretics. She currently denies any chest pain, cough or shortness of breath. She states the symptoms have resolved completely. She has no nausea, vomiting or diarrhea. She has been tolerating her antibiotics well. She has not had an outpatient ID visit since her discharge in mid December. PAST MEDICAL HISTORY: Significant for coronary artery disease, DVT, hypertension, history of PE, ulcerative colitis. PAST SURGICAL HISTORY: Significant for cardiac catheterization, ileostomy, angioplasty and lumpectomy. FAMILY HISTORY: Noncontributory. SOCIAL HISTORY: Negative for tobacco use, alcohol use or drug use. ALLERGIES: She has no antibiotic allergies. CURRENT MEDICATIONS: Include Toprol-XL and/or Coumadin, Lasix, Plavix, Lidoderm patch, Protonix, Trileptal, subQ heparin, Norvasc, Neurontin, Ranexa, ceftriaxone, iron, Tylenol, Zofran, Dulcolax, Roxicodone and Ultram. PHYSICAL EXAMINATION: VITAL SIGNS: She is afebrile and has been since admission, pulse 84, respiratory rate is 20, blood pressure is 126/81, oxygen saturation is 95-97% on 4 liters nasal cannula. GENERAL: She is awake, alert and oriented x3. She is in no acute distress. HEENT: Mucous membranes are moist. Extraocular muscles are intact. HEART: Regular. LUNGS: Clear bilaterally. ABDOMEN: Soft and nondistended. EXTREMITIES: There is bilateral lower extremity edema. Examination of the right lower extremity does reveal warmth and erythema to the mid calf. There is a scab over the inferior portion of her knee incision. There is no surrounding induration, edema, erythema, tenderness or drainage. She does have a dressing on the right ankle. She is currently refusing takedown of that dressing secondary to pain. I do not see any purulent drainage. Her dressing is clean, dry and intact. LABORATORY STUDIES: CBC today reveals a white blood cell count of 5.6, hemoglobin 9.3 and platelets are 341. Chemistry panel reveals a sodium of 132, potassium 3.5, chloride 94, bicarb 30, BUN 17, creatinine 0.97 and glucose of 99. ProBNP was over 7000. There is no micro to review from this admission. Chest x-ray in the Emergency Room showed congestive heart failure. ASSESSMENT AND PLAN: Right lower extremity wound, polymicrobial, on outpatient antibiotics. She currently does not clinically appear to be newly infected and has been tolerating antibiotics well. My recommendation will be to continue on Rocephin as planned and she will have continued followup at the wound care center as well as with infectious diseases. I would give at least 14 days of antibiotics, but certainly she will be followed on an outpatient basis and antibiotic duration can be adjusted at that time. Thank you for this consultation.
[2017-01-13] MEDS: BOOST PLUS VANILLA PO SCH ×2 (15:47)
[2017-01-13] MEDS ORDERED: WARFARIN SOD 2.5 MG TAB PO SCH (16:00)
[2017-01-13] MEDS: CEFTRIAXONE SOD INJ 1 GM in DEXTROSE 5% ADD-VANTAGE 50ML 50 ML IV SCH (18:13)
[2017-01-13] MEDS: TRAMADOL HCL 50 MG TAB PO PRN (18:13)
--- NOTE | 2017-01-13 21:37 | DIAGNOSTIC IMAGING REPORT ---
ART DOP LOWER EXT BILAT CLINICAL HISTORY: poorly healing wound rt foot/leg COMPARISON STUDY: No previous studies for comparison. FINDINGS: The study was limited from a technical standpoint. The patient had multiple open wounds within the right ankle and foot as well as overlying bandages. The patient could not tolerate ankle brachial indices on the right. On the left, the brachial systolic pressures 130 mg of mercury. Posterior tibial systolic pressure was 152 mg of mercury. Dorsalis pedis systolic pressure was 127 mmHg. The ankle arm index on the left was normal measuring 1.2. On the left there was biphasic flow within the common femoral artery. There is biphasic flow within the superficial femoral artery. There is triphasic flow within the left popliteal. There is triphasic flow within the posterior tibial and anterior tibial and peroneal arteries. On the right there is monophasic flow within the common femoral artery. There is monophasic flow within the superficial femoral artery. There is monophasic flow within the popliteal artery. There is monophasic flow with the proximal posterior tibial artery antecubital artery, and peroneal artery. The mid and distal posterior tibial and anterior tibial and peroneal arteries the right could not be evaluated. No high velocity jets were identified. IMPRESSION: 1. Technically limited study 2. Normal study for age on the left. Normal left ankle-brachial index of 1.2. Normal triphasic and biphasic waveforms 3. The patient could not tolerate a right ankle brachial index. There is monophasic flow throughout the visualized arterial system on the right lower extremity. The diffuse monophasic flow raises the possibility of a more proximal iliac artery stenosis. Electronically signed by: Vinicius Cerda M.D. 01/13/2017 9:36 PM Dictated Date/Time: 01/13/2017 9:32 PM
[2017-01-14] VITALS (7 sets, daily range): BP systolic 108–134; BP diastolic 67–82; PULSE 64–80; TEMP 36.6–37; O2SAT 90–99
[2017-01-14] MEDS: OXCARBAZEPINE 150 MG TAB PO SCH ×5 (00:13→22:53)
[2017-01-14] MEDS: PANTOprazole SOD 40 MG TAB PO SCH (05:47)
[2017-01-14 07:41] LABS: HEMATOCRIT 30.1 % (37-47); MEAN CELL VOLUME 89.1 fL (80-100); MEAN CORPUSCULAR HGB CONC 32.6 g/dl (32-36); MEAN PLATELET VOLUME 9.1 fL (7.4-10.4); PLATELET COUNT 285 K/uL (130-400); RED BLOOD COUNT 3.38 M/uL (4.2-5.4); WHITE BLOOD COUNT 5.78 K/uL (4.8-10.8)
[2017-01-14 07:46] LABS: INR 2.3 (0.9-1.1); PROTHROMBIN TIME (PATIENT) 25.4 SECONDS (9.0-12.0)
[2017-01-14] MEDS: BOOST PLUS VANILLA PO SCH ×6 (07:51→16:08)
[2017-01-14] MEDS: AMLODIPINE BESYLATE 5 MG TAB PO SCH ×2 (07:52→20:49)
[2017-01-14] MEDS: FUROSEMIDE INJ 40 MG in SYRINGE 0 ML IV SCH (07:52)
[2017-01-14] MEDS: LIDODERM (LIDOCAINE) PATCH 5% TD SCH (07:52)
[2017-01-14] MEDS: CLOPIDOGREL BISULFATE 75 MG TAB PO SCH (07:52)
[2017-01-14] MEDS: RANOLAZINE 500 MG ER TAB PO SCH ×2 (07:53→20:49)
[2017-01-14] MEDS: GABAPENTIN 600 MG TAB PO SCH ×3 (07:53→20:47)
[2017-01-14] MEDS: FERROUS SULFATE 325 MG TAB PO SCH ×2 (07:54→16:08)
[2017-01-14] MEDS: METOPROLOL SUCC 50MG EXT REL TAB PO SCH (07:54)
[2017-01-14] MEDS: ISOSORBIDE MONONITRATE 60 MG TABCR PO SCH (07:54)
[2017-01-14 08:13] LABS: BUN/CREATININE RATIO 21.7 (10-20); CALCIUM 9.6 mg/dl (8.5-10.1); CREATININE 0.99 mg/dl (0.60-1.20); MAGNESIUM 1.9 mg/dl (1.8-2.4); POTASSIUM 3.6 mmol/L (3.5-5.1)
[2017-01-14] MEDS: OXYCODONE HCL IR 5 MG TAB (IMMEDIATE RELEASE) PO PRN ×2 (11:07→22:53)
--- NOTE | 2017-01-14 15:13 | Hospitalist Progress Note ---
Hospitalist Progress Note Date of Service Jan 14, 2017. (Yue Salazar ., SANDRA-C) Subjective Pt evaluation today including: conversation w/ patient, conversation w/ family (daughter at bedside), physical exam, chart review, lab review, review of inpatient medication list Pain: 10/10 pain in RLE PO Intake: Tolerating PO diet, poor appetite which is chronic Voiding: viera catheter in place Patient reports feeling much better. She is off oxygen and denies any shortness of breath or wheezing today. She has no chest pain. She states she slept well last night, and this morning was the first time she woke up without dyspnea in a long time. She does complain of a 10/10 sharp pain in her RLE at the moment, particularly in the back of the calf and lateral ankle. The patient denies fevers, chills, sweats, chest pain, palpitations, claudication, cough, wheezing, shortness of breath, nausea, vomiting, abdominal pain, dysuria , hematuria, urinary retention, paralysis, weakness, numbness and tingling. Additional Comments: See HPI for pertinent positives and negatives. All other systems reviewed and negative. (Yue Salazar ., PA-C) Objective Vital Signs Date Time Temp Pulse Resp B/P (MAP) Pulse Ox O2 Delivery O2 Flow Rate FiO2 01/14/17 12:00 Room Air 01/14/17 11:16 36.7 69 20 128/75 (92) 92 Room Air 01/14/17 08:00 Room Air 01/14/17 07:47 36.7 68 18 127/82 (97) 90 Room Air 01/14/17 04:00 Room Air 01/14/17 03:54 37.0 80 18 124/81 (95) 99 Nasal Cannula 2.0 01/14/17 00:00 Room Air 01/13/17 23:49 36.6 61 17 124/79 (94) 92 Room Air 01/13/17 20:00 36.7 63 20 118/74 (89) 93 Room Air 4.0 01/13/17 20:00 93 Room Air 4.0 01/13/17 18:58 36.7 63 20 120/76 (91) 91 Room Air 01/13/17 16:00 93 Room Air 4.0 01/13/17 15:14 37.2 69 18 102/67 (79) 93 Room Air (Yue Salazar ., SANDRA-C) Physical Exam Notes: General appearance: +Obese. Well-developed, well-nourished, no apparent distress Head: Normocephalic, atraumatic Eyes: Normal inspection, PERRL, EOMI ENT: Normal ENT inspection, hearing grossly normal, pharynx normal Neck: Supple, no JVD, trachea midline Respiratory/Chest: +Decreased breath sounds in bases. On room air. No respiratory distress Cardiovascular: +Systolic murmur. Regular rate & rhythm, no gallop Abdomen/GI: +RLL ileostomy. Normal bowel sounds, non-tender, soft Extremities/Musculoskeletal: +RLE erythematous, warm from ankle to upper calf. 2+ pitting edema. Very TTP especially back of calf and lateral ankle. Neurological/Psych: Alert, normal mood/affect, oriented x 3 Skin: +Ulcers on lateral and posterior aspects of RLE. Improved according to wound care nurse. Erythema as above. Normal color, warm/dry, no rash (Yue Salazar ., SANDRA-C) Laboratory Results Last 24 Hours Test 01/14/17 07:17 White Blood Count 5.78 K/uL Red Blood Count 3.38 M/uL Hemoglobin 9.8 g/dL Hematocrit 30.1 % Mean Corpuscular Volume 89.1 fL Mean Corpuscular Hemoglobin 29.0 pg Mean Corpuscular Hemoglobin Concent 32.6 g/dl RDW Standard Deviation 52.6 fL RDW Coefficient of Variation 16.2 % Platelet Count 285 K/uL Mean Platelet Volume 9.1 fL Prothrombin Time 25.4 SECONDS Prothromb Time International Ratio 2.3 Sodium Level 132 mmol/L Potassium Level 3.6 mmol/L Chloride Level 95 mmol/L Carbon Dioxide Level 30 mmol/L Anion Gap 7.0 mmol/L Blood Urea Nitrogen 22 mg/dl Creatinine 0.99 mg/dl Est Creatinine Clear Calc Drug Dose 44.4 ml/min Estimated GFR () 60.6 Estimated GFR (Non- 52.3 BUN/Creatinine Ratio 21.7 Random Glucose 101 mg/dl Calcium Level 9.6 mg/dl Magnesium Level 1.9 mg/dl (Yue Salazar PA-C) Diagnostic Results Reviewed the following studies and agree with interpretation as follows: Patient Name: MALINI,LEONARD Nickie Unit Number: [id number] Dictated: 01/13/172131 Transcribed: 01/13/172131 ARG Printed Date/Time: [~ rep prt dt]/[~ rep prt tm] [~ rep ct labl] - [~ rep ct ivnm] [facility] [place] [place] [address] Dictated: 01/13/172131 Transcribed: 01/13/172131 ARG Printed Date/Time: [~ rep prt dt]/[~ rep prt tm] [~ rep ct labl] - [~ rep ct ivnm] Patient: LEONARD NAYAK Address1: [address] [facility] Rec: [id number] Address2: Acct ID: [id number] [facility] Zip: [place] [address] Date: 1930 Sex: F Room/Bed: [facility] Ref Phy: SHIRLEY CHA SC: C.2T Att Phy: Mckayla Blunt MD Report #: [id number] Fannie Phy: No Doctor, Assigned Test: ALEB Admit Phy: Dez Sterling D.OToñito Tufter Operator: AVERY Interpreting Phy: Vinicius Cerda M.D. Diagnosis: CELLULITIS OF RIGHT LOWER EXTREMITY Ordering Phy: Mckayla Blunt MD Service Date: 01/13/17 Admit Date: 01/12/1709/24/17 MNE: [id number] CONF: DICTATED BY: Vinicius Cerda M.D.]] CC: SHIRLEY CHA No Doctor, Assigned Mckayla Blunt MD Endcc: [~ rep ct add3]] ART DOP LOWER EXT BILAT CLINICAL HISTORY: poorly healing wound rt foot/leg COMPARISON STUDY: No previous studies for comparison. FINDINGS: The study was limited from a technical standpoint. The patient had multiple open wounds within the right ankle and foot as well as overlying bandages. The patient could not tolerate ankle brachial indices on the right. On the left, the brachial systolic pressures 130 mg of mercury. Posterior tibial systolic pressure was 152 mg of mercury. Dorsalis pedis systolic pressure was 127 mmHg. The ankle arm index on the left was normal measuring 1.2. On the left there was biphasic flow within the common femoral artery. There is biphasic flow within the superficial femoral artery. There is triphasic flow within the left popliteal. There is triphasic flow within the posterior tibial and anterior tibial and peroneal arteries. On the right there is monophasic flow within the common femoral artery. There is monophasic flow within the superficial femoral artery. There is monophasic flow within the popliteal artery. There is monophasic flow with the proximal posterior tibial artery antecubital artery, and peroneal artery. The mid and distal posterior tibial and anterior tibial and peroneal arteries the right could not be evaluated. No high velocity jets were identified. IMPRESSION: 1. Technically limited study 2. Normal study for age on the left. Normal left ankle-brachial index of 1.2. Normal triphasic and biphasic waveforms 3. The patient could not tolerate a right ankle brachial index. There is monophasic flow throughout the visualized arterial system on the right lower extremity. The diffuse monophasic flow raises the possibility of a more proximal iliac artery stenosis. Electronically signed by: Vinicius Cerda M.D. 01/13/2017 9:36 PM Dictated Date/Time: 01/13/2017 9:32 PM The status of this report is Signed. Draft = Not yet reviewed or approved by Radiologist. Signed = Reviewed and approved by Radiologist. <AttendingPhy>Mckayla Blunt MD</AttendingPhy> <FamilyPhy>SHIRLEY CHA</ FamilyPhy> <PrimaryPhy>No Doctor, Assigned</PrimaryPhy> <UnitNumber>[id number]</ UnitNumber> <VisitNumber>[id number]</VisitNumber> <PatientName>LEONARD NAYAK</ PatientName> <DateOfBirth>1930</DateOfBirth> <Location>C.2T</Location> < ServiceDate>01/12/17</ServiceDate> <MNE>ESINDI</MNE> <OrderingPhy>Mckayla Blunt MD</OrderingPhy> <OrderingPhyMNE>f rep ord dr perea</OrderingPhyMNE> < DictatingPhyMNE>f rep dict dr perea</DictatingPhyMNE> <CCListMNE>f rep ct mne</ CCListMNE> <AdmittingPhyMNE>f pt admit dr perea</AdmittingPhyMNE> <AttendingPhyMNE >f pt attend dr perea</AttendingPhyMNE> <ConsultingPhyMNE>f pt consult dr perea</ConsultingPhyMNE> <FamilyPhyMNE>f pt fam dr perea</FamilyPhyMNE> <OtherPhyMNE>f pt other dr perea</OtherPhyMNE> < PrimaryPhyMNE>f pt prim care dr perea</PrimaryPhyMNE> <ReferringPhyMNE>f pt referring dr perea</ReferringPhyMNE> (Yue Salazar ., DOYLE) Assessment and Plan 86 y/o female with a history of chronic diastolic CHF, CAD s/p stents, HTN, HLD , CKD stage III, trigeminal neuralgia, depression, ulcerative colitis s/p ileostomy and GERD who presents to the ED on 01/12 with chest pain. Acute on chronic diastolic heart failure--stable -Admit to telemetry. On observation. Pt in paced rhythm, HR 60s -Daily weights, strict I's & O's -UO 2100, net balance -1910 on 01/13 -Lasix 40 mg IV qd -Echo 12/23/16 shows grade II diastolic dysfunction. LVEF 55-60%. No wall motion abnormalities. -Continue metoprolol -Cardiology consulted, appreciate recs: Titrate Toprol up to 50 mg and Imdur to 120. Chest pain--resolved -Troponins negative -EKGs no ischemic changes RLE cellulitis--stable. Pt still with erythema, warm, edema and tenderness -Consult infectious disease, appreciate recs: Continue abx at least 14 days -Continue Rocephin 1 gm IV qd. Day #3 of 14. -Wound care nurse consulted Oral candidiasis--resolved -D/C Diflucan CAD s/p stents, HTN--stable -Continue Plavix 75 mg PO qd, Norvasc 5 mg PO BID, Ranexa 500 mg PO BID -Imdur increased to 120 mg PO qd -Metoprolol succinate increased to 50 mg PO qd CKD stage III--stable -Creatinine stable, at baseline Trigeminal neuralgia -Continue gabapentin 600 mg PO TID and Trileptal 150 mg PO QID AAA at 6 cm -Pt follows with Dr. Martinez, last saw late November -Dr. Martinez and Dr. Clark aware, want to watch and wait as she would be high surgical risk, pt verbalizes understanding and does not want intervention now Chronic DVT/PE with h/o IVC filter: -INR supratherapeutic on admission at 3.9 -INR 2.3 on 01/14 -Increase warfarin to 5 mg PO qd GERD -Continue Protonix DVT prophylaxis -Warfarin therapeutic Code Status -Level I, FULL RESUSCITATION STATUS (Yue Salazar, DOYLE) Reviewed: Pt Seen/Exam by Me (Mckayla Blunt MD) History Physician Rubber Chemist Supervision Note: I interviewed and examined the patient. Discussed with SANDRA Salazar and agree with findings and plan as documented in the note. Any exceptions or clarifications are listed here: Pt feeling better, much less SOB. Still with rt leg and foot pain. Arterial Doppler with evidence of PAD in RLE, possibly iliac stenosis Tele reviewed, Vitals reviewed, I/Os show diuresis NAD, AAOx3 OP clear, no thrush RRR +3/6 systolic murmur at apex radiating to axilla, also with 2/6 LEROY at RUSB Lungs with faint crackles at bases bilat Abd +BS, soft, NT ND, colostomy bag in place with liquid stool Ext Right foot with 2+ pitting edema, cannot locate palpable DP pulse, kerlix wrap and dressing just replaced right leg and did not remove-wound images in chart reviewed, +erythema of foot and ankle on right 86 yo female here with typical angina likely secondary to acute on chronic diastolic CHF and increased cardiac demand. Angina now resolved. Now found to have significant PAD of RLE and poorly healing wound -appreciate Cardiology recs to increase Imdur and Toprol for antianginal effect and for improved cardiac output -continue Rocephin for 14 more total days and f/u with Wound Clinic and ID as outpt -Consult to Vascular Surgery to see about further eval/treatment of RLE PAD -continue diuresis with IV lasix, watch lytes and renal function -Mitral valve stenosis and regurg/Aortic stenosis--> watch extremes of fluid status -coumadin for DVT proph-follow INR closely given antibiotics -dcd Diflucan as has prolonged QT and INR high, thrush resolved Documented By: Mckayla Blunt (Mckayla Blunt MD)
[2017-01-14] MEDS: TRAMADOL HCL 50 MG TAB PO PRN (15:51)
[2017-01-14] MEDS: WARFARIN SOD 5 MG TAB PO SCH (16:08)
[2017-01-14] MEDS: CEFTRIAXONE SOD INJ 1 GM in DEXTROSE 5% ADD-VANTAGE 50ML 50 ML IV SCH (17:21)
[2017-01-15 04:26] VITALS: BP 123/78; PULSE 66; TEMP 37; O2SAT 93
[2017-01-15] MEDS: PANTOprazole SOD 40 MG TAB PO SCH (05:54)
[2017-01-15] MEDS: OXCARBAZEPINE 150 MG TAB PO SCH ×4 (05:54→23:31)
[2017-01-15 07:53] VITALS: BP 117/73; PULSE 106; TEMP 36.7; O2SAT 97
[2017-01-15] MEDS: RANOLAZINE 500 MG ER TAB PO SCH ×2 (07:54→21:29)
[2017-01-15] MEDS: BOOST PLUS VANILLA PO SCH ×6 (07:54→17:20)
[2017-01-15] MEDS: AMLODIPINE BESYLATE 5 MG TAB PO SCH ×2 (07:55→21:29)
[2017-01-15] MEDS: FERROUS SULFATE 325 MG TAB PO SCH ×2 (07:55→17:20)
[2017-01-15] MEDS: CLOPIDOGREL BISULFATE 75 MG TAB PO SCH (07:55)
[2017-01-15] MEDS: ISOSORBIDE MONONITRATE 60 MG TABCR PO SCH (07:55)
[2017-01-15] MEDS: GABAPENTIN 600 MG TAB PO SCH ×3 (07:56→21:29)
[2017-01-15] MEDS: FUROSEMIDE INJ 40 MG in SYRINGE 0 ML IV SCH (07:56)
[2017-01-15] MEDS: METOPROLOL SUCC 50MG EXT REL TAB PO SCH (07:57)
[2017-01-15] MEDS: LIDODERM (LIDOCAINE) PATCH 5% TD SCH (07:57)
[2017-01-15 08:12] LABS: MEAN CELL VOLUME 88.1 fL (80-100); MEAN CORPUSCULAR HEMOGLOBIN 28.4 pg (25-34); MEAN CORPUSCULAR HGB CONC 32.3 g/dl (32-36); MEAN PLATELET VOLUME 9.1 fL (7.4-10.4); PLATELET COUNT 276 K/uL (130-400); RED BLOOD COUNT 3.52 M/uL (4.2-5.4)
[2017-01-15] MEDS: OXYCODONE HCL IR 5 MG TAB (IMMEDIATE RELEASE) PO PRN ×2 (08:12→21:39)
[2017-01-15 08:21] LABS: INR 2.2 (0.9-1.1)
[2017-01-15 08:40] LABS: BUN/CREATININE RATIO 25.8 (10-20); CALCIUM 9.4 mg/dl (8.5-10.1); CREATININE 0.9 mg/dl (0.60-1.20); POTASSIUM 3.6 mmol/L (3.5-5.1)
--- NOTE | 2017-01-15 09:47 | Cardiology Follow-Up ---
Subjective Date of Service: Jan 15, 2017. Pt evaluation today including: conversation w/ patient, conversation w/ family , physical exam, chart review, lab review, review of studies, review of inpatient medication list History of Present Illness The patient is an 86 year old female who was admitted for acute on chronic congestive heart failure and right leg cellulitis. Patient states that, physically, she is feeling improved. She states that she slept well through the night without having to use supplemental oxygen, and she is breathing more comfortably on room air this morning. She denies having any chest pain, palpitations, lightheadedness, dizziness or other acute complaints. The patient has been doing well with taking increased dosages of Imdur and Toprol, and she has lost over 4L of fluid since her admission. Patient has been following with wound care for the cellulitis to her right leg. She states that it is still very tender, but she was told that the erythema to the surrounding site has appeared to have improved. She will be evaluated by the vascular surgeon as well. Patient denies fevers, chills, increased swelling/drainage or other acute symptoms. She states that she is concerned about "having to make decisions", but otherwise, she feels well. Social History Smoking Status: Never Smoker History of Alcohol Use: No Medications Current Inpatient Medications Medications (Trade) Dose Ordered Sig/Darrick Route Start Time Stop Time Status Last Admin Dose Admin Acetaminophen (Tylenol Tab) 650 mg Q4H PRN PO 01/12/17 15:45 02/11/17 15:44 Ondansetron HCl (Zofran Inj) 4 mg Q6H PRN IV 01/12/17 15:45 02/11/17 15:44 Furosemide 40 mg/ Syringe 4 ml @ 4 mls/min DAILY IV 01/13/17 09:00 02/12/17 08:59 01/15/17 07:56 4 MLS/MIN Amlodipine Besylate (Norvasc Tab) 5 mg BID PO 01/12/17 21:00 02/11/17 20:59 01/15/17 07:55 5 MG Bisacodyl (Dulcolax Supp) 10 mg DAILY PRN OK 01/12/17 15:45 02/11/17 15:44 Clopidogrel Bisulfate (plAVix TAB) 75 mg DAILY PO 01/13/17 09:00 02/12/17 08:59 01/15/17 07:55 75 MG Ferrous Sulfate (Feosol Tab) 325 mg BIDM PO 01/12/17 16:45 02/11/17 17:59 01/15/17 07:55 325 MG Gabapentin (Neurontin Tab) 600 mg TID PO 01/12/17 21:00 02/11/17 20:59 01/15/17 07:56 600 MG Lidocaine (Lidoderm Patch 5%) 1 patch DAILY TD 01/13/17 09:00 02/12/17 08:59 01/14/17 07:52 1 PATCH Oxycodone HCl (Roxicodone Immediate Rel Tab) 5 mg Q4H PRN PO 01/12/17 15:45 01/26/17 15:44 01/15/17 08:12 5 MG Pantoprazole Sodium (Protonix Tab) 40 mg DAILYBB PO 01/13/17 06:00 02/12/17 06:59 01/15/17 05:54 40 MG Tramadol HCl (Ultram Tab) 50 mg Q4H PRN PO 01/12/17 15:45 02/11/17 15:44 01/14/17 15:51 50 MG Ranolazine (Ranexa ER Tab) 500 mg BID PO 01/12/17 21:00 02/11/17 20:59 01/15/17 07:54 500 MG Miscellaneous (Remove Lidoderm Patch) 1 ea DAILY@21 N/A 01/12/17 21:00 02/11/17 20:59 01/13/17 21:00 1 EA Ceftriaxone Sodium 1 gm/ Dextrose 50 ml @ 100 mls/hr DAILY@1800 IV 01/12/17 18:00 01/22/17 17:59 01/14/17 17:21 100 MLS/HR Miscellaneous (Iv Fluids Completed) 1 ea PRN PRN N/A 01/12/17 16:45 01/12/18 16:44 Nitroglycerin (Nitrostat Tab) 0.4 mg UD PRN SL 01/12/17 18:45 02/11/17 18:44 Heparin Sodium (Porcine) (Heparin 10 Unit/ ml 5 ml Flush) 5 ml PRN PRN FLUSH 01/12/17 23:45 02/11/17 23:44 Oxcarbazepine (Trileptal Tab) 150 mg QID@0000,0600,1200,1800 PO 01/13/17 06:00 02/12/17 05:59 01/15/17 05:54 150 MG Metoprolol Succinate (Toprol Xl Tab) 50 mg DAILY PO 01/14/17 09:00 02/13/17 08:59 01/15/17 07:57 50 MG Isosorbide Mononitrate (Imdur Ext Rel Tab) 120 mg QAM PO 01/14/17 09:00 02/12/17 08:59 01/15/17 07:55 120 MG Enteral Nutritional Formula (Boost Plus Vanilla) 1 can TIDM PO 01/13/17 16:45 02/12/17 16:44 01/15/17 07:54 1 CAN Warfarin Sodium (Coumadin Tab) 5 mg DAILY@16 PO 01/14/17 16:00 02/13/17 15:59 01/14/17 16:08 5 MG Objective Vital Signs Past 12 Hours Date Time Temp Pulse Resp B/P (MAP) Pulse Ox O2 Delivery O2 Flow Rate FiO2 01/15/17 08:00 Room Air 01/15/17 07:53 36.7 106 18 117/73 (88) 97 4.0 01/15/17 04:26 37.0 66 20 123/78 (93) 93 Nasal Cannula 4.0 01/15/17 04:10 Room Air 01/15/17 00:20 Room Air 01/14/17 23:09 36.6 65 20 134/76 (95) 94 Nasal Cannula 4.0 Last Recorded Weight-Kilograms: 91.000 Physical Exam General: Patient is sitting upright in bed, awake and alert, in no acute distress. HEENT: Normocephalic, atraumatic. Sclera nonicteric, PERRLA, EOMI. Throat without erythema or exudates. Neck: No cervical adenopathy, JVP at the level of the clavicles, no bruits. Trachea midline. Heart: 3/6 basal systolic murmur, best heard over the right 2nd intercostal space, midclavicular line. Regular rate and rhythm, no gallops or rubs. Lungs: Clear to auscultation, bilaterally, without rales, rhonchi or wheezes. Abdomen: Soft, nontender. Bowel sounds present in all 4 quadrants. No masses appreciated. Extremities: Right leg with significant erythema and edema extending 2/3r[address] way to the knee, appears to be approved from previous encounter. Skin is sloughing, especially around the posterior ankle/foot. No erythema or edema to to left leg or upper extremities. Neuro: Awake, alert and oriented x 3 without focal deficits. Psych: Answers questions appropriately but states that she feels "down" today after having such a good day yesterday. Optimistic toward getting better. Data Laboratory Results: Last 24 Hours Test 01/15/17 07:44 White Blood Count 7.20 K/uL Red Blood Count 3.52 M/uL Hemoglobin 10.0 g/dL Hematocrit 31.0 % Mean Corpuscular Volume 88.1 fL Mean Corpuscular Hemoglobin 28.4 pg Mean Corpuscular Hemoglobin Concent 32.3 g/dl RDW Standard Deviation 53.0 fL RDW Coefficient of Variation 16.3 % Platelet Count 276 K/uL Mean Platelet Volume 9.1 fL Prothrombin Time 24.0 SECONDS Prothromb Time International Ratio 2.2 Sodium Level 132 mmol/L Potassium Level 3.6 mmol/L Chloride Level 95 mmol/L Carbon Dioxide Level 28 mmol/L Anion Gap 9.0 mmol/L Blood Urea Nitrogen 23 mg/dl Creatinine 0.90 mg/dl Est Creatinine Clear Calc Drug Dose 48.8 ml/min Estimated GFR () 68.1 Estimated GFR (Non- 58.7 BUN/Creatinine Ratio 25.8 Random Glucose 102 mg/dl Calcium Level 9.4 mg/dl Imaging: CHEST ONE VIEW PORTABLE CLINICAL HISTORY: chest pain chest pain COMPARISON STUDY: 12/31/2016 FINDINGS: Mildly progressive cardiomegaly. Congestive failure progressive from the prior study. Bipolar cardiac pacemaker in acceptable position. Interval development of small bilateral pleural effusions. IMPRESSION: Congestive heart failure progressive from the prior exam The above report was generated using voice recognition software. It may contain grammatical, syntax or spelling errors. Electronically signed by: Adria Smiley M.D. 01/12/2017 11:01 AM Dictated Date/Time: 01/12/2017 10:59 AM ART DOP LOWER EXT BILAT CLINICAL HISTORY: poorly healing wound rt foot/leg COMPARISON STUDY: No previous studies for comparison. FINDINGS: The study was limited from a technical standpoint. The patient had multiple open wounds within the right ankle and foot as well as overlying bandages. The patient could not tolerate ankle brachial indices on the right. On the left, the brachial systolic pressures 130 mg of mercury. Posterior tibial systolic pressure was 152 mg of mercury. Dorsalis pedis systolic pressure was 127 mmHg. The ankle arm index on the left was normal measuring 1.2. On the left there was biphasic flow within the common femoral artery. There is biphasic flow within the superficial femoral artery. There is triphasic flow within the left popliteal. There is triphasic flow within the posterior tibial and anterior tibial and peroneal arteries. On the right there is monophasic flow within the common femoral artery. There is monophasic flow within the superficial femoral artery. There is monophasic flow within the popliteal artery. There is monophasic flow with the proximal posterior tibial artery antecubital artery, and peroneal artery. The mid and distal posterior tibial and anterior tibial and peroneal arteries the right could not be evaluated. No high velocity jets were identified. IMPRESSION: 1. Technically limited study 2. Normal study for age on the left. Normal left ankle-brachial index of 1.2. Normal triphasic and biphasic waveforms 3. The patient could not tolerate a right ankle brachial index. There is monophasic flow throughout the visualized arterial system on the right lower extremity. The diffuse monophasic flow raises the possibility of a more proximal iliac artery stenosis. Electronically signed by: Vinicius Cerda M.D. 01/13/2017 9:36 PM Dictated Date/Time: 01/13/2017 9:32 PM EKG: Atrially paced rhythm at 60BMP with 1st degree AV block, LAFB, RBBB. No acute changes when compared to prior tracing. Telemetry reviewed: Predominantly paced rhythm. Assessment and Plan Acute on Chronic CHF: 1. Limit salt intake to avoid fluid retention 2. Maintain Imdur at 120mg qd 3. Maintain Toprol at 50mg qd 4. Discharged on oral Lasix at 40mg qd 5. Instructed to return/call the clinic if >3lb weight gain in a 24-48 hour period Right Leg Cellulitis: 1. Keep wound clean and dry 2. Continue IV antibiotics as instructed by Infectious Disease 3. Follow up with vascular surgeon for further evaluation Patient is stable from a cardiac standpoint for discharge back to [facility]
[2017-01-15] MEDS: TRAMADOL HCL 50 MG TAB PO PRN ×2 (10:05→15:14)
[2017-01-15 11:39] VITALS: BP 109/69; PULSE 65; TEMP 36.8; O2SAT 95
--- NOTE | 2017-01-15 13:40 | Hospitalist Progress Note ---
Hospitalist Progress Note Date of Service Jan 15, 2017. (Yue Salazar ., SANDRA-C) Subjective Pt evaluation today including: conversation w/ patient, conversation w/ family (daughter at bedside), physical exam, chart review, lab review, review of inpatient medication list Pain: 9/10 sharp pain in RLE PO Intake: Tolerating PO diet Voiding: viera catheter in place Patient states she does not feel quite as good as yesterday. She complains of some very mild, intermittent shortness of breath today, stating she feels like she has to stop and take a deep breath. She also complains of 9/10 sharp pain in her RLE. Today she has a new 5/10 sharp pain in her left toes with certain movements and weight bearing, but denies pain there at rest. The patient denies fevers, chills, sweats, chest pain, palpitations, claudication, cough, wheezing, nausea, vomiting, abdominal pain, dysuria, hematuria, urinary retention, paralysis, weakness, numbness and tingling. Additional Comments: See HPI for pertinent positives and negatives. All other systems reviewed and negative. (Yue Salazar ., PA-C) Objective Vital Signs Date Time Temp Pulse Resp B/P (MAP) Pulse Ox O2 Delivery O2 Flow Rate FiO2 01/15/17 12:00 Room Air 01/15/17 11:39 36.8 65 18 109/69 (82) 95 Room Air 01/15/17 08:00 Room Air 01/15/17 07:53 36.7 106 18 117/73 (88) 97 4.0 01/15/17 04:26 37.0 66 20 123/78 (93) 93 Nasal Cannula 4.0 01/15/17 04:10 Room Air 01/15/17 00:20 Room Air 01/14/17 23:09 36.6 65 20 134/76 (95) 94 Nasal Cannula 4.0 01/14/17 20:15 92 Room Air 01/14/17 18:52 37.0 66 22 114/71 (85) 92 Room Air 01/14/17 16:00 Room Air 01/14/17 15:02 36.6 64 19 108/67 (81) 94 Room Air (Yue Salazar ., SHARADC) Physical Exam Notes: General appearance: +Obese. Well-developed, well-nourished, no apparent distress Head: Normocephalic, atraumatic Eyes: Normal inspection, PERRL, EOMI ENT: Normal ENT inspection, hearing grossly normal, pharynx normal Neck: Supple, no JVD, trachea midline Respiratory/Chest: +Decreased breath sounds in bases. On room air. No respiratory distress Cardiovascular: +Systolic murmur. Regular rate & rhythm, no gallop Abdomen/GI: +RLL ileostomy. Normal bowel sounds, non-tender, soft Extremities/Musculoskeletal: +RLE warm and erythema from ankle to upper calf improved. 2+ pitting edema. Very TTP especially back of calf and lateral ankle. Neurological/Psych: Alert, normal mood/affect, oriented x 3 Skin: +Ulcers on lateral and posterior aspects of RLE. Normal color, warm/dry , no rash (Yue Salazar ., PA-C) Laboratory Results Last 24 Hours Test 01/15/17 07:44 White Blood Count 7.20 K/uL Red Blood Count 3.52 M/uL Hemoglobin 10.0 g/dL Hematocrit 31.0 % Mean Corpuscular Volume 88.1 fL Mean Corpuscular Hemoglobin 28.4 pg Mean Corpuscular Hemoglobin Concent 32.3 g/dl RDW Standard Deviation 53.0 fL RDW Coefficient of Variation 16.3 % Platelet Count 276 K/uL Mean Platelet Volume 9.1 fL Prothrombin Time 24.0 SECONDS Prothromb Time International Ratio 2.2 Sodium Level 132 mmol/L Potassium Level 3.6 mmol/L Chloride Level 95 mmol/L Carbon Dioxide Level 28 mmol/L Anion Gap 9.0 mmol/L Blood Urea Nitrogen 23 mg/dl Creatinine 0.90 mg/dl Est Creatinine Clear Calc Drug Dose 48.8 ml/min Estimated GFR () 68.1 Estimated GFR (Non- 58.7 BUN/Creatinine Ratio 25.8 Random Glucose 102 mg/dl Calcium Level 9.4 mg/dl (Yue Salazar ., PA-C) Assessment and Plan 86 y/o female with a history of chronic diastolic CHF, CAD s/p stents, HTN, HLD , CKD stage III, trigeminal neuralgia, depression, ulcerative colitis s/p ileostomy and GERD who presents to the ED on 01/12 with chest pain. Acute on chronic diastolic heart failure--stable -Admit to telemetry. On observation. Pt in paced rhythm, HR 70s -Daily weights, strict I's & O's -UO 1300, net balance -733 on 01/14 -Lasix 40 mg IV qd -Echo 12/23/16 shows grade II diastolic dysfunction. LVEF 55-60%. No wall motion abnormalities. -Continue metoprolol -Cardiology consulted, appreciate recs: Continue Toprol and Imdur at current dose. Stable from cardiac standpoint. Can discharge on Lasix 40 mg PO qd. Iliac artery stenosis -Arterial dopplers showed possible iliac artery stenosis in RLE -Vascular surgery consulted, appreciate recs: Obtain ultrasound of aorta and iliacs for further evaluation. As wound is slowly getting better, would probably still avoid surgery. Chest pain--resolved -Troponins negative -EKGs no ischemic changes RLE cellulitis--stable. Pt still with erythema, warm, edema and tenderness -Consult infectious disease, appreciate recs: Continue abx at least 14 days -Continue Rocephin 1 gm IV qd. Day #4 of 14. -Wound care nurse consulted Oral candidiasis--resolved -D/C Diflucan CAD s/p stents, HTN--stable -Continue Plavix 75 mg PO qd, Norvasc 5 mg PO BID, Ranexa 500 mg PO BID -Imdur increased to 120 mg PO qd -Metoprolol succinate increased to 50 mg PO qd CKD stage III--stable -Creatinine stable, at baseline Trigeminal neuralgia -Continue gabapentin 600 mg PO TID and Trileptal 150 mg PO QID AAA at 6 cm -Pt follows with Dr. Martinez, last saw late November -Dr. Martinez and Dr. Clark aware, want to watch and wait as she would be high surgical risk, pt verbalizes understanding and does not want intervention now Chronic DVT/PE with h/o IVC filter: -INR supratherapeutic on admission at 3.9 -INR 2.2 on 01/15 -Continue warfarin to 5 mg PO qd GERD -Continue Protonix DVT prophylaxis -Warfarin therapeutic Code Status -Level I, FULL RESUSCITATION STATUS (Yue Salazar PA-C) Reviewed: Pt Seen/Exam by Me (Mckayla Blunt MD) History Physician Developer [employer] Supervision Note: I interviewed and examined the patient. Discussed with SANDRA Salazar and agree with findings and plan as documented in the note. Any exceptions or clarifications are listed here: Still with pain in right leg and also in both feet today, thinks might be positional from this bed. No CP, no SOB. Had Aorta US but unable to visualize the iliac artery. Awaiting Vascular final input Tele reviewed, Vitals reviewed, I/Os show diuresis NAD, AAOx3 RRR +3/6 systolic murmur at apex radiating to axilla, also with 2/6 LEROY at RUSB Lungs CTAB, no wcr Abd +BS, soft, NT ND, colostomy bag in place with liquid stool Ext Right foot with 1-2+ pitting edema, cannot locate palpable DP pulse, kerlix wrap and dressing just replaced right leg and did not remove-wound images in chart reviewed, +erythema of foot and ankle on right is improved slightly 86 yo female here with typical angina likely secondary to acute on chronic diastolic CHF and increased cardiac demand. Angina now resolved. Now found to have significant PAD of RLE and poorly healing wound although has made some slow progress on abx as per Wound RN who has seen it previously -appreciate Cardiology recs to increase Imdur and Toprol for antianginal effect and for improved cardiac output -continue Rocephin for 14 more total days and f/u with Wound Clinic and ID as outpt -Awaiting Vascular Surgery attending input after review of Aorta US results ( unable to visualize iliac artery) about further eval/treatment of RLE PAD -continue diuresis with IV lasix, watch lytes and renal function, switch to po lasix 40mg daily on dc -Mitral valve stenosis and regurg/Aortic stenosis--> watch extremes of fluid status -coumadin for DVT proph-follow INR closely given antibiotics -dcd Diflucan as has prolonged QT and INR high, thrush resolved -if no vascular intervention planned, will dc back to [facility] if auth approved Documented By: Mckayla Blunt (Mckayla Blunt MD)
--- NOTE | 2017-01-15 14:05 | Surgery Consultation ---
Consultation Date of Service Jan 15, 2017. Chief Complaint PAD, RLE wounds History of Present Illness The patient is a 86 year old female with multiple medical problems, including hx of DVT and IVC filter insertion, severe CAD, and AAA, known to vascular service for her large AAA(6cm), seen in consultation today for peripheral arterial disease and RLE wounds. Pt had been seen by [facility] as outpt after recent admission for RLE cellulitis and was to see Dr Martinez in office this week for eval, however, ended up at [facility] and was not seen in office. Per pt, she developed wounds to RLE approx 3-4 wks ago and was started on abx d/t cellulitis. Denies any known trauma to leg. Admits discomfort in BL post thighs with ambulation, however, states both sides are the same and has not been ambulating long distances since going to [facility] after recent admission. Pt denies HINES, fever, chills, SOB, chest pain presently, abd pain, N/ V, rest pain, other complaints. Recent BLE US demonstrates monophasic flow to RLE, with possible proximal lesion. Tri and biphasic flow to LLE. Vitals Vital Signs Past 12 Hours Date Time Temp Pulse Resp B/P (MAP) Pulse Ox O2 Delivery O2 Flow Rate FiO2 01/15/17 12:00 Room Air 01/15/17 11:39 36.8 65 18 109/69 (82) 95 Room Air 01/15/17 08:00 Room Air 01/15/17 07:53 36.7 106 18 117/73 (88) 97 4.0 01/15/17 04:26 37.0 66 20 123/78 (93) 93 Nasal Cannula 4.0 01/15/17 04:10 Room Air Allergies Coded Allergies: Sodium Lauryl Sulfate (Verified Allergy, Intermediate, HIVES & WELTS, 11/10) BEE STING (Verified Allergy, Unknown, ANAPHYLAXIS, 11/11/15) Home Medications Scheduled Amlodipine Besylate (Norvasc), 5 MG PO BID Ceftriaxone Sodium (Rocephin), 1 GM IV DAILY Clopidogrel (Plavix), 75 MG PO DAILY Ferrous Sulfate (Ferrous Sulfate), 325 MG PO BIDM Fluconazole (Diflucan), 100 MG PO DAILY Furosemide (Furosemide), 20 MG PO DAILY Gabapentin (Gabapentin), 600 MG PO TID Isosorbide Mononitrate Ext Rel (Imdur Ext Rel), 90 MG PO QAM Lidocaine (Lidoderm Patch 5%), 1 PATCH TD ONAMOFFPM Magnesium Oxide (Magnesium-Oxide), 400 MG PO DAILY Metoprolol Succ (Toprol Xl) (Toprol-Xl), 25 MG PO DAILY Multivitamins/Minerals (Mvi With Minerals), 1 TAB PO DAILY Nystatin (Nystatin Suspension), 5 ML MT QID Oxcarbazepine (Trileptal), 150 MG PO QID Pantoprazole (Protonix), 40 MG PO DAILYBB Potassium Ext Rel (Klor-Con), 20 MEQ PO TIDM Ranolazine (Ranexa), 500 MG PO BID Warfarin Sodium (Warfarin Sodium), Unknown Dose PO HS Scheduled PRN Acetaminophen (Apap Extra Strength), 500 MG PO Q4 PRN for Pain or Fever Bisacodyl (Bisacodyl Laxative), 10 MG NJ DAILY PRN for Constipation Magnesium Hydroxide (Milk Of Magnesia), 30 ML PO DAILY PRN for Constipation Oxycodone Ir (Roxicodone Ir), 1-2 TAB PO Q4H PRN for mod-svr pain Polyethylene Glycol 3350 (Miralax), 17 GM PO DAILY PRN for Constipation Saline ([place] Nasal [place]), 1 SPRAY FORREST Q3H PRN for dry nasal passages Sodium Phosphate/Biphosphate (Fleet Enema), 1 EA [place] DAILY PRN for Constipation Tramadol Hcl (Ultram), 50 MG PO Q4H PRN for Moderate Pain Problem List Medical Problems: (1) Acute on chronic diastolic (congestive) heart failure (2) Cellulitis of right lower extremity (3) Coronary artery disease (4) Deep vein thrombosis (5) History of DVT of lower extremity (6) Hypertension (7) PE (pulmonary embolism) (8) Ulcerative colitis Surgical Problems: (1) H/O cardiac catheterization (2) H/O ileostomy (3) H/O percutaneous transluminal coronary angioplasty (4) History of lumpectomy Surgical / Medical History Hx Cardiac Surgery: No Hx Abdominal Surgery: Yes (Ileostomy, colectomy (remote) and hysterectomy) Hx Cancer Surgery: Yes (breast cancer s/p Lumpectomy of L breast (early )) Hx Thoracic Surgery: No Hx Orthopedic: Yes (L total knee replacement (1989)?; R bulsar removed 04/2014 , rt shoulder ) Hx Urinary Tract Surgery: No Past Medical/Surgical History: Heart Disease, High Cholesterol, Hypertension Family History FH: cancer FH: heart disease Hypertension Social History Smoking Status: Never Smoker Hx Tobacco Use In Past Year?: No Hx Alcohol Use - Type & Amnt: No Hx Substance Use -Type & Amnt: No Review of Systems Constitutional: No chills, No fever, No malaise Skin: + change in color (RLE was red, but improving per pt.) Eyes: No visual changes ENMT: No sore throat Respiratory: No cough, No LUIS, No hemoptysis, No short of breath Cardiovascular: No chest pain, No palpitations, No syncope, No edema, No intermittent claudication Gastrointestinal: No abdominal pain, No nausea, No vomiting Genitourinary - Female: No dysuria, No hematuria Neurologic: No dizziness, No headache, No lethargy, No numbness Physical Exam Constitutional: General Apperance: well-nourished, well-developed, overweight Level of Distress: chronically ill Psychiatric: Mental Status: active & alert, normal mood, normal affect Orientation: oriented except where noted, to time, to place, to person Memory: recent memory normal, remote memory normal Head: normocephalic, atraumatic Eyes: EOM: EOMI ENMT: normal ENT inspection, hearing grossly normal Neck: supple, trachea midline Lungs: Respiratory effort: no dyspnea Auscultation: no rales/crackles, no rhonchi, decreased breath sounds Cardiovascular: Apical Impulse: not displaced Heart Auscultation: RRR, no rubs, no gallops Peripheral Pulses: Pulses: full and equal, in all extremities except if noted Bruits: none appreciated Carotid Pulse: normal on the left, normal on the right Brachial Pulses: normal on the left, normal on the right Radial Pulse: normal on the left, normal on the right Posterior Tibialis Pulse: pertinent finding (nonpalpable BLE, but + doppler signals) Dorsalis Pedis Pulse: pertinent finding (Nonpalpable BLE, + doppler) Extremities: Upper Right: no cyanosis, no edema, no varicosities Upper Left: no cyanosis, no edema, no varicosities Lower Right: no cyanosis, edema (+3), pertinent finding (distal leg with tender, open ulcerations with black eschar, mild pink erythema to lower leg.) Lower Left: no cyanosis, no varicosities, no palpable cord, edema (trace) Neurologic: Cranial Nerves: grossly intact Sensation: grossly intact Assessment and Plan ASSESSMENT and PLAN: RLE ulcerations, improving PAD Pt with possible R iliac disease indicated on US. Will obtain aortoiliac US and review. Per pt and daughter, wounds have only been present a few weeks and are showing improvement since being on abx. Foot demonstrates no sign of ischemia. Will discuss further with pt after Dr Martinez reviews US.
--- NOTE | 2017-01-15 14:50 | DIAGNOSTIC IMAGING REPORT ---
AORTOILIAC DUPLEX ULTRASOUND CLINICAL HISTORY: Aneurysm COMPARISON STUDY: CT scan dated 12/23/2016 FINDINGS: There is an infrarenal abdominal aortic aneurysm measuring 6.1 cm in maximal diameter. The peak systolic velocity within the aorta was 63 cm/s. The bifurcation and common iliac arteries could not be visualized. CT angiography would be necessary if evaluation of these vessels is deemed clinically necessary. IMPRESSION: 1. Infrarenal abdominal aortic aneurysm measuring 6.1 cm in diameter 2. Nondiagnostic evaluation of the iliac arteries which could not be visualized Electronically signed by: Vinicius Cerda M.D. 01/15/2017 2:49 PM Dictated Date/Time: 01/15/2017 2:45 PM
[2017-01-15 16:00] VITALS: BP 116/72; PULSE 67; TEMP 37.4
[2017-01-15] MEDS: WARFARIN SOD 5 MG TAB PO SCH (16:13)
[2017-01-15] MEDS: CEFTRIAXONE SOD INJ 1 GM in DEXTROSE 5% ADD-VANTAGE 50ML 50 ML IV SCH (18:32)
[2017-01-15 20:00] VITALS: BP 126/72; PULSE 61; TEMP 37.2
[2017-01-15] MEDS ORDERED: POTASSIUM CHLORIDE 10 MEQ TABCR PO STA (20:26)
[2017-01-15] MEDS ORDERED: MAGNESIUM SULFATE 1GM / D5W 1 GM in PREMIXED IN D5W 100 ML IV ONE (21:00)
[2017-01-15 23:08] VITALS: BP 133/76; PULSE 67; TEMP 37; O2SAT 92
[2017-01-16 03:58] VITALS: BP 126/81; PULSE 76; TEMP 36.7; O2SAT 90
[2017-01-16] MEDS: OXCARBAZEPINE 150 MG TAB PO SCH ×3 (05:24→18:41)
[2017-01-16] MEDS: PANTOprazole SOD 40 MG TAB PO SCH (05:25)
[2017-01-16 07:17] LABS: HEMATOCRIT 33.1 % (37-47); MEAN CELL VOLUME 88.7 fL (80-100); MEAN CORPUSCULAR HEMOGLOBIN 27.9 pg (25-34); MEAN CORPUSCULAR HGB CONC 31.4 g/dl (32-36); MEAN PLATELET VOLUME 9.2 fL (7.4-10.4); PLATELET COUNT 286 K/uL (130-400); RED BLOOD COUNT 3.73 M/uL (4.2-5.4); WHITE BLOOD COUNT 8.74 K/uL (4.8-10.8)
[2017-01-16] MEDS: BOOST PLUS VANILLA PO SCH ×6 (07:30→17:01)
[2017-01-16 07:32] LABS: PROTHROMBIN TIME (PATIENT) 22.5 SECONDS (9.0-12.0)
[2017-01-16 07:48] LABS: CALCIUM 9.7 mg/dl (8.5-10.1); CREATININE 0.91 mg/dl (0.60-1.20); POTASSIUM 3.9 mmol/L (3.5-5.1)
[2017-01-16 08:00] VITALS: BP 128/84; PULSE 65; TEMP 36.8; O2SAT 83
[2017-01-16] MEDS: METOPROLOL SUCC 50MG EXT REL TAB PO SCH (08:12)
[2017-01-16] MEDS: LIDODERM (LIDOCAINE) PATCH 5% TD SCH (08:12)
[2017-01-16] MEDS: FERROUS SULFATE 325 MG TAB PO SCH ×2 (08:12→16:04)
[2017-01-16] MEDS: GABAPENTIN 600 MG TAB PO SCH ×3 (08:12→20:40)
[2017-01-16] MEDS: CLOPIDOGREL BISULFATE 75 MG TAB PO SCH (08:13)
[2017-01-16] MEDS: AMLODIPINE BESYLATE 5 MG TAB PO SCH ×2 (08:13→20:40)
[2017-01-16] MEDS: ISOSORBIDE MONONITRATE 60 MG TABCR PO SCH (08:13)
[2017-01-16] MEDS: FUROSEMIDE INJ 40 MG in SYRINGE 0 ML IV SCH (08:14)
[2017-01-16] MEDS ORDERED: POTASSIUM CHLORIDE 20 MEQ TABCR PO ONE (09:08)
[2017-01-16] MEDS: RANOLAZINE 500 MG ER TAB PO SCH ×2 (10:43→20:41)
[2017-01-16 11:09] VITALS: BP 117/71; PULSE 66; TEMP 37.4; O2SAT 95
--- NOTE | 2017-01-16 12:26 | Hospitalist Progress Note ---
Hospitalist Progress Note Date of Service Jan 16, 2017. (Yue Salazar ., SANDRA-C) Subjective Pt evaluation today including: conversation w/ patient, conversation w/ family (daughter at bedside), physical exam, chart review, lab review, review of studies, review of inpatient medication list Pain: 7/10 sharp RLE pain PO Intake: Tolerating PO diet Voiding: viera catheter in place The patient reports feeling the same. She denies any shortness of breath, although her O2 sats had dropped to 83% on room air, so she was placed back on 2L NC. She complains of 7/10 sharp RLE pain in the posterior and lateral aspects. She states that the pain in her left foot is improved and now only hurts with weight bearing. The patient denies fevers, chills, sweats, chest pain, palpitations, claudication, cough, wheezing, shortness of breath, nausea, vomiting, abdominal pain, dysuria, hematuria, urinary retention, paralysis, weakness, numbness and tingling. Additional Comments: See HPI for pertinent positives and negatives. All other systems reviewed and negative. (Yue Salazar ., PA-C) Objective Vital Signs Date Time Temp Pulse Resp B/P (MAP) Pulse Ox O2 Delivery O2 Flow Rate FiO2 01/16/17 11:09 37.4 66 20 117/71 (86) 95 Nasal Cannula 2.0 01/16/17 08:00 36.8 65 18 128/84 (99) 83 Room Air 01/16/17 08:00 Room Air 01/16/17 04:00 Room Air 01/16/17 03:58 36.7 76 20 126/81 (96) 90 Room Air 01/16/17 00:00 Room Air 01/15/17 23:08 37.0 67 20 133/76 (95) 92 Room Air 01/15/17 20:00 37.2 61 20 126/72 (90) Room Air 01/15/17 20:00 Room Air 91.0 01/15/17 16:00 37.4 67 20 116/72 (87) Room Air 01/15/17 16:00 Room Air 93.0 (Yue Salazar ., SANDRA-C) Physical Exam Notes: General appearance: +Obese. Well-developed, well-nourished, no apparent distress Head: Normocephalic, atraumatic Eyes: Normal inspection, PERRL, EOMI ENT: Normal ENT inspection, hearing grossly normal, pharynx normal Neck: Supple, no JVD, trachea midline Respiratory/Chest: +Decreased breath sounds in bases. On 2L NC. No respiratory distress Cardiovascular: +Systolic murmur. Regular rate & rhythm, no gallop Abdomen/GI: +RLL ileostomy. Normal bowel sounds, non-tender, soft Extremities/Musculoskeletal: +RLE warm and erythema from ankle to upper calf improved. 2+ pitting edema. Very TTP especially back of calf and lateral ankle. Neurological/Psych: Alert, normal mood/affect, oriented x 3 Skin: +Ulcers on lateral and posterior aspects of RLE. Normal color, warm/dry , no rash (Yue Salazar PA-C) Laboratory Results Last 24 Hours Test 01/16/17 06:53 White Blood Count 8.74 K/uL Red Blood Count 3.73 M/uL Hemoglobin 10.4 g/dL Hematocrit 33.1 % Mean Corpuscular Volume 88.7 fL Mean Corpuscular Hemoglobin 27.9 pg Mean Corpuscular Hemoglobin Concent 31.4 g/dl RDW Standard Deviation 54.1 fL RDW Coefficient of Variation 16.7 % Platelet Count 286 K/uL Mean Platelet Volume 9.2 fL Prothrombin Time 22.5 SECONDS Prothromb Time International Ratio 2.0 Sodium Level 132 mmol/L Potassium Level 3.9 mmol/L Chloride Level 96 mmol/L Carbon Dioxide Level 27 mmol/L Anion Gap 9.0 mmol/L Blood Urea Nitrogen 25 mg/dl Creatinine 0.91 mg/dl Est Creatinine Clear Calc Drug Dose 46.1 ml/min Estimated GFR () 66.7 Estimated GFR (Non- 57.5 BUN/Creatinine Ratio 27.0 Random Glucose 111 mg/dl Calcium Level 9.7 mg/dl Magnesium Level 2.2 mg/dl (Yue Salazar PA-C) Diagnostic Results Reviewed the following studies and agree with interpretation as follows: Patient Name: LEONARD NAYAK Unit Number: [id number] Dictated: 01/15/171444 Transcribed: 01/15/171444 ARG Printed Date/Time: [~ rep prt dt]/[~ rep prt tm] [~ rep ct labl] - [~ rep ct ivnm] [facility] [place] [address] Dictated: 01/15/17 1445 Transcribed: 01/15/17 1445 ARG Printed Date/Time: [~ rep prt dt]/[~ rep prt tm] [~ rep ct labl] - [~ rep ct ivnm] Patient: LEONARD NAYAK Address1: [address] [facility] Rec: [id number] [facility] [id number] [facility] Zip: [place] [address] Date: 1930 Sex: F Room/Bed: [facility] Ref Phy: SHIRLEY CHA SC: C.2T Att Phy: Mckayla Blunt MD Report #: [id number] Fannie Phy: No Doctor, Assigned Test: ARTDUPC Admit Phy: Dez Sterling DToñitoOToñito Planogrammer: HIREN Interpreting Phy: Vinicius Cerda M.D. Diagnosis: CELLULITIS OF RIGHT LOWER EXTREMITY Ordering Phy: Wilma Perdomo PA-C Service Date: 01/15/17 Admit Date: 01/12/1709/24/17 MNE: [id number] CONF: DICTATED BY: Vinicius Cerda M.D.]] CC: SHIRLEY CHA Lynn D., PA-C No Doctor, Assigned Mckayla Blunt MD Endcc: [~ rep ct add3]] AORTOILIAC DUPLEX ULTRASOUND CLINICAL HISTORY: Aneurysm COMPARISON STUDY: CT scan dated 12/23/2016 FINDINGS: There is an infrarenal abdominal aortic aneurysm measuring 6.1 cm in maximal diameter. The peak systolic velocity within the aorta was 63 cm/s. The bifurcation and common iliac arteries could not be visualized. CT angiography would be necessary if evaluation of these vessels is deemed clinically necessary. IMPRESSION: 1. Infrarenal abdominal aortic aneurysm measuring 6.1 cm in diameter 2. Nondiagnostic evaluation of the iliac arteries which could not be visualized Electronically signed by: Vinicius Cerda M.D. 01/15/2017 2:49 PM Dictated Date/Time: 01/15/2017 2:45 PM The status of this report is Signed. Draft = Not yet reviewed or approved by Radiologist. Signed = Reviewed and approved by Radiologist. <AttendingPhy>Mckayla Blunt MD</AttendingPhy> <FamilyPhy>SHIRLEY CHA</ FamilyPhy> <PrimaryPhy>No Doctor, Assigned</PrimaryPhy> <UnitNumber>[id number]</ UnitNumber> <VisitNumber>[id number]</VisitNumber> <PatientName>LEONARD NAYAK</ PatientName> <DateOfBirth>1930</DateOfBirth> <Location>C.2T</Location> < ServiceDate>01/12/17</ServiceDate> <MNE>ESINDI</MNE> <OrderingPhy>Wilma Perdomo PA-C</OrderingPhy> <OrderingPhyMNE>f rep ord dr perea</OrderingPhyMNE> < DictatingPhyMNE>f rep dict dr perea</DictatingPhyMNE> <CCListMNE>f rep ct mne</ CCListMNE> <AdmittingPhyMNE>f pt admit dr perea</AdmittingPhyMNE> <AttendingPhyMNE >f pt attend dr perea</AttendingPhyMNE> <ConsultingPhyMNE>f pt consult dr perea</ConsultingPhyMNE> <FamilyPhyMNE>f pt fam dr perea</FamilyPhyMNE> <OtherPhyMNE>f pt other dr perea</OtherPhyMNE> < PrimaryPhyMNE>f pt prim care dr perea</PrimaryPhyMNE> <ReferringPhyMNE>f pt referring dr perea</ReferringPhyMNE> (Yue Salazar, DOYLE) Assessment and Plan 86 y/o female with a history of chronic diastolic CHF, CAD s/p stents, HTN, HLD , CKD stage III, trigeminal neuralgia, depression, ulcerative colitis s/p ileostomy and GERD who presents to the ED on 01/12 with chest pain. Acute on chronic diastolic heart failure--stable -Admit to telemetry. On observation. Pt in paced rhythm, HR 60-s70s -Daily weights, strict I's & O's -UO 1125 cc, net balance -525 cc -D/C IV Lasix. Switch to Lasix 40 mg PO qd which will be continued at discharge. -Echo 12/23/16 shows grade II diastolic dysfunction. LVEF 55-60%. No wall motion abnormalities. -Continue metoprolol -Cardiology consulted, appreciate recs: Continue Toprol and Imdur at current dose. Stable from cardiac standpoint. Can discharge on Lasix 40 mg PO qd. Iliac artery stenosis -Arterial dopplers showed possible iliac artery stenosis in RLE -Aorta ultrasound shows 6.1 cm infrarenal AAA. Non diagnostic evaluation of iliac arteries -Vascular surgery consulted, appreciate recs: Obtain ultrasound of aorta and iliacs for further evaluation. As wound is slowly getting better, would probably still avoid surgery. Chest pain--resolved -Troponins negative -EKGs no ischemic changes RLE cellulitis--stable. Pt still with erythema, warm, edema and tenderness -Consult infectious disease, appreciate recs: Continue abx at least 14 days -Continue Rocephin 1 gm IV qd. Day #5 of 14. -Wound care nurse consulted Oral candidiasis--resolved -D/C Diflucan CAD s/p stents, HTN--stable -Continue Plavix 75 mg PO qd, Norvasc 5 mg PO BID, Ranexa 500 mg PO BID -Imdur increased to 120 mg PO qd -Metoprolol succinate increased to 50 mg PO qd CKD stage III--stable -Creatinine stable, at baseline Trigeminal neuralgia -Continue gabapentin 600 mg PO TID and Trileptal 150 mg PO QID AAA at 6 cm -Pt follows with Dr. Martinez, last saw late November -Dr. Martinez and Dr. Clark aware, want to watch and wait as she would be high surgical risk, pt verbalizes understanding and does not want intervention now Chronic DVT/PE with h/o IVC filter: -INR supratherapeutic on admission at 3.9 -INR 2.0 on 01/16 -Continue warfarin to 5 mg PO qd GERD -Continue Protonix DVT prophylaxis -Warfarin therapeutic Code Status -Level I, FULL RESUSCITATION STATUS Dispo -Pt requires insurance auth to return to [facility], will be sent today. [facility] low on beds, likely cannot go until tomorrow (Yue Salazar ., PA-C) Reviewed: Pt Seen/Exam by Me (Mckayla Blunt MD) History Physician Supervisor Garage Supervision Note: I interviewed and examined the patient. Discussed with SANDRA Salazar and agree with findings and plan as documented in the note. Any exceptions or clarifications are listed here: Pt very tired tonight. No new complaints. Still with pain in foot. Reviewed result of CTA AA with BLE runoff and no iliac stenosis. Awaiting Vascular input after this test Tele reviewed, Vitals reviewed, I/Os show diuresis NAD, AAOx3 RRR +3/6 systolic murmur at apex radiating to axilla, also with 2/6 LEROY at RUSB Lungs with crackles at bases and decreased BS left base Abd +BS, soft, NT ND, colostomy bag in place with liquid stool Ext Right foot with 1+ pitting edema, can now feel faintly palpable DP pulse on right, kerlix wrap and dressing just replaced right leg and did not remove, left leg with 1-2+ pitting edema Skin-erythema right leg to knee 86 yo female here with typical angina likely secondary to acute on chronic diastolic CHF and increased cardiac demand. Angina now resolved. Now found to have abnormal monophasic flow through RLE arteries but angiogram of RLE with no stenosis; with poorly healing wound although has made some slow progress on abx as per Wound RN who has seen it previously Angina resolved -appreciate Cardiology recs to increase Imdur and Toprol for antianginal effect and for improved cardiac output -continue Rocephin for 14 more total days and f/u with Wound Clinic and ID as outpt -Awaiting Vascular Surgery attending input after review of CTA results from today about further eval/treatment of RLE PAD but suspect no intervention needed given no stenosis -continue diuresis with IV lasix one more day then switch to po lasix, watch lytes and renal function -Mitral valve stenosis and regurg/Aortic stenosis--> watch extremes of fluid status -coumadin for DVT proph-follow INR closely given antibiotics -dcd Diflucan as has prolonged QT and INR high, thrush resolved -if no vascular intervention planned, will dc back to [facility] if auth approved tomorrow Documented By: Mckayla Blunt (Mckayla Blunt MD)
[2017-01-16] MEDS ORDERED: OPTIRAY 320 IV PRN (14:45)
--- NOTE | 2017-01-16 15:20 | Progress Note ---
Progress Note Date of Service Jan 16, 2017. Progress Note PT's aortoilic US reviewed by Dr Cristina, nondiagnostic. Recommend CTA to better eval arterial disease. Will discuss results with pt tomorrow.
[2017-01-16 16:04] VITALS: BP 138/84; PULSE 64; TEMP 36.8; O2SAT 92
[2017-01-16] MEDS: WARFARIN SOD 5 MG TAB PO SCH (16:04)
--- NOTE | 2017-01-16 16:08 | DIAGNOSTIC IMAGING REPORT ---
ANGIO AA JEFFREY LE RUNOFF CLINICAL HISTORY: 87 years-old Female presenting with peripheral arterial disease, aortoiliac disease. TECHNIQUE: Multidetector CT angiography of the abdomen and pelvis and bilateral lower extremities was performed after the administration of intravenous contrast. 3-D volumetric and/or maximum intensity projection (MIP) images were subsequently reconstructed for review. IV contrast: 119 mL of Optiray 320. A dose lowering technique was used consistent with the principles of ALARA (as low as reasonably achievable). Stenosis measurements were based on NASCET-like criteria. COMPARISON: 01/12/2014. CT DOSE (mGy.cm): The estimated cumulative dose is 1689.26 mGycm. FINDINGS: Ticket Sales Supervisor topogram: Unremarkable. Vasculature: Calcified and noncalcified atherosclerotic plaque throughout the tortuous aorta. The infrarenal abdominal aortic aneurysm now measures 6.1 x 5.8 cm, previously 5.0 x 5.0 cm when remeasured at a comparable level. No evidence of rupture or periaortic inflammatory change. The aneurysm extends to the level of the aortic bifurcation but not into the iliac arteries. Celiac axis patent supplying the conventional hepatic arterial anatomy. Mild narrowing of the proximal superior mesenteric artery immediately beyond the origin, either secondary to atherosclerotic plaque or short segment dissection. This has a minimal diameter of 4 mm in comparison to the normal distal diameter of 7 mm. Single right main renal artery with significant atherosclerotic plaque resulting in narrowing immediately distal to its origin with a minimal diameter of 1 to 2 mm relative to the normal distal diameter of 4 mm. Two left renal arteries, the larger with a patent origin, and the smaller with calcified atherosclerotic plaque at its origin. Inferior mesenteric artery not clearly visualized. Arteries to the right lower extremity is patent with a three-vessel runoff at least to the level of the ankle mortise. Evaluation of the left lower extremity in the popliteal fossa is limited due to the marking artifact arising from the total left knee arthroplasty. Allowing for this, arteries to the left lower extremity are also patent with a three-vessel runoff at least to the level of the ankle mortise. Dorsalis pedis and plantar arteries patent bilaterally. Remaining abdomen and pelvis: Lung bases: Dependent opacities likely extensive atelectasis associated with the small right and moderate left pleural effusions. Multichamber enlargement of the heart. 2 cardiac leads are partially visualized. Mitral annular and coronary artery calcification. No pericardial effusion. Liver: Allowing for the phase of contrast, normal morphology. No focal lesion. Conventional hepatic arterial anatomy. Biliary: No gross biliary ductal dilatation allowing for phase of contrast. Normal gallbladder. Pancreas: Severe parenchymal atrophy. Spleen: Normal. Adrenal glands: Nodular thickening of the adrenal glands, similar to prior exam. Kidneys and ureters: Normal. No hydronephrosis. Bladder: Posterior displacement of the bladder secondary to abdominal peroneal resection and hysterectomy. Gas within the bladder could suggest recent catheterization. Pelvic organs: Uterus surgically absent. No adnexal masses. Bowel: Postsurgical changes of abdominoperineal resection and total proctocolectomy. A right abdominal ileostomy is in place. Associated parastomal hernia containing small bowel and mesentery. No associated fluid or inflammatory change to suggest granulation. The neck of the parastomal hernia measures 2.3 cm. No bowel obstruction. Epiphrenic diverticulum at the gastroesophageal junction or gastric diverticulum may be present. Peritoneal cavity: No free fluid or intraperitoneal gas. Lymph nodes: Multiple prominent retroperitoneal lymph nodes similar to prior exam and subcentimeter in the short axis. These may be reactive. Abdominal wall: Parastomal hernia as described above. Additional fat-containing ventral hernia immediately to the right of midline in the midabdomen with a neck measuring 3.8 cm. No evidence of strangulation. Additional smaller fat-containing ventral hernia in the epigastrium. Diastases of the abdominis rectus. Musculoskeletal: Likely posttraumatic deformity of the right superior and inferior pubic rami. Degenerative changes of the thoracolumbar spine. Bilateral lower extremities: Total left knee arthroplasty with patellar resurfacing. No gross evidence of fracture or hardware complication. Diffuse subcutaneous edema in the lower extremities, right greater than left. IMPRESSION: 1. Interval increase in size of the infrarenal abdominal aortic aneurysm, which now measures 6.1 x 5.8 cm, previously 5.0 x 5.0 cm when remeasured at a comparable level. No evidence of rupture. 2. Less than 50% stenosis of the proximal SMA immediately beyond its origin. 3. Approximately 75% stenosis of the single right main renal artery immediately distal to its origin. 4. Patent vasculature to the bilateral lower extremities. 5. Moderate left and small right pleural effusions with extensive atelectasis. 6. Gas within the bladder could suggest recent catheterization. 7. Postsurgical changes of total proctocolectomy with abdominal prior resection. Prominent parastomal hernia at the right abdominal ileostomy. Electronically signed by: David Land M.D. 01/16/2017 4:06 PM Dictated Date/Time: 01/16/2017 3:48 PM
[2017-01-16] MEDS: CEFTRIAXONE SOD INJ 1 GM in DEXTROSE 5% ADD-VANTAGE 50ML 50 ML IV SCH (18:41)
[2017-01-16 19:46] VITALS: BP 128/76; PULSE 64; TEMP 37; O2SAT 97
[2017-01-16 23:32] VITALS: BP 132/76; PULSE 64; TEMP 37.1; O2SAT 94
[2017-01-17] MEDS: OXCARBAZEPINE 150 MG TAB PO SCH ×4 (00:16→18:56)
[2017-01-17 03:58] VITALS: BP 124/76; PULSE 68; TEMP 37; O2SAT 93
[2017-01-17] MEDS: PANTOprazole SOD 40 MG TAB PO SCH (05:55)
[2017-01-17 07:01] VITALS: BP 135/84; PULSE 68; TEMP 36.6; O2SAT 96
[2017-01-17 07:14] LABS: PROTHROMBIN TIME (PATIENT) 21.7 SECONDS (9.0-12.0)
[2017-01-17 07:34] LABS: BUN/CREATININE RATIO 23.4 (10-20); CALCIUM 9.7 mg/dl (8.5-10.1); MAGNESIUM 2.1 mg/dl (1.8-2.4); POTASSIUM 3.8 mmol/L (3.5-5.1)
[2017-01-17] MEDS: TRAMADOL HCL 50 MG TAB PO PRN ×3 (08:06→20:19)
[2017-01-17] MEDS: FUROSEMIDE INJ 40 MG in SYRINGE 0 ML IV SCH (08:07)
[2017-01-17] MEDS: GABAPENTIN 600 MG TAB PO SCH ×3 (08:07→20:19)
[2017-01-17] MEDS: AMLODIPINE BESYLATE 5 MG TAB PO SCH ×2 (08:07→20:18)
[2017-01-17] MEDS: CLOPIDOGREL BISULFATE 75 MG TAB PO SCH (08:07)
[2017-01-17] MEDS: ISOSORBIDE MONONITRATE 60 MG TABCR PO SCH (08:08)
[2017-01-17] MEDS: POTASSIUM CHLORIDE 20 MEQ TABCR PO SCH (08:08)
[2017-01-17] MEDS: METOPROLOL SUCC 50MG EXT REL TAB PO SCH (08:08)
[2017-01-17] MEDS: FERROUS SULFATE 325 MG TAB PO SCH ×2 (08:08→16:24)
[2017-01-17] MEDS: RANOLAZINE 500 MG ER TAB PO SCH ×2 (08:09→20:19)
[2017-01-17] MEDS: LIDODERM (LIDOCAINE) PATCH 5% TD SCH (08:09)
[2017-01-17] MEDS: BOOST PLUS VANILLA PO SCH ×6 (08:10→18:56)
[2017-01-17] MEDS ORDERED: FUROSEMIDE 40 MG TAB PO SCH (09:00)
[2017-01-17 09:43] VITALS: O2SAT 95
[2017-01-17] MEDS: OXYCODONE HCL IR 5 MG TAB (IMMEDIATE RELEASE) PO PRN (11:13)
[2017-01-17 11:28] VITALS: BP 118/70; PULSE 60; TEMP 36.8; O2SAT 90
--- NOTE | 2017-01-17 13:17 | Progress Note ---
Progress Note Date of Service Jan 17, 2017. Progress Note Pt's CTA reviewed with Dr Martinez, demonstrates moderate diffuse atherosclerotic disease in addition to her known 6cm AAA, no lesions amenable to intervention and pt with 3 vessel runoff to foot . Do not recommend vascular surgical intervention at this time. Recommend local wound care. Would be happy to reevaluate as needed. OK for discharge from vascular standpoint. Will see in office in 6 months for AAA surveillance. Please call if needed otherwise. Pt aware.
[2017-01-17] MEDS ORDERED: IMDSR60 PO (14:26)
[2017-01-17] MEDS ORDERED: TPRSR50 PO (14:26)
[2017-01-17] MEDS ORDERED: FRS/40 PO (14:26)
[2017-01-17] MEDS ORDERED: CMD5 PO (14:26)
[2017-01-17] MEDS ORDERED: CEFT1INJ26 IV (14:44)
--- NOTE | 2017-01-17 14:44 | Discharge Instructions ---
Discharge Instructions Date of Service Jan 17, 2017. Admission Reason for Admission: Cellulitis Of Right Lower Extremity Discharge Discharge Diagnosis / Problem: Acute on chronic diastolic congestive heart failure, cellulitis Discharge Goals Goal(s): Decrease discomfort, Improve function, Diagnostic testing, Therapeutic intervention Activity Recommendations Activity Level: Assistance Required Therapies: Physical Therapy, Occupational Therapy Exercise/Sports Limitations: gradually increase as tolerated . Additional Information Patient informed of condition: Yes Advance Directives: Yes DNR: No Level of Care: Acute Rehab Communicable Disease: No Prognosis: Stable Oxygen at (LPM): By protocol, keep O2 sat 90% or above Hill Catheter: No Instructions / Follow-Up Instructions / Follow-Up The patient was admitted with chest pain and also found to have an acute exacerbation of her chronic diastolic congestive heart failure. Acute coronary syndrome was ruled out. Cardiology was consulted, who increased the patient's Imdur and Toprol XL, and the chest pain has not occurred again. She was diuresed with IV Lasix with good urine output. The patient is also being treated for a cellulitis infection in the right lower extremity. Infectious disease was consulted, and it was recommended that the antibiotic be continued for 14 more days. The patient was assess by vascular surgery while inpatient due to concern for possible right iliac artery stenosis, however CTA revealed no significant stenosis, and no surgical intervention was recommended at this time. The patient is now medically stable for discharge. Medications: *Continue Rocephin 1 gm IV qd x 8 more days to complete 14 day course. *Lasix increased to 40 mg PO qd. *Imdur increased to 120 mg PO qd. *Toprol XL increased to 50 mg PO qd. *Continue warfarin 5 mg PO qd. *Continue other home medications as prescribed. Follow up: *Follow up with primary care provider within 1 week after discharge regarding hospital stay and changes to medications. *Repeat INR one day after discharge and adjust warfarin dose as needed. *Follow up with infectious disease in 1 week to ensure resolution of infection or to determine if further antibiotics are needed. *Follow up with wound care clinic within 1 week regarding wounds on posterior and lateral aspects of right lower extremity. *Follow up with Dr. Martinez of vascular surgery in 6 months regarding AAA. Please seek medical attention if patient experiences fevers, chills, sweats, dizziness/lightheadedness, loss of consciousness, fall, chest pain, shortness of breath, nausea, vomiting, numbness or tingling, or if the right lower extremity has increased redness, swelling, warmth, or tenderness. Call 911 and go to the Emergency Room if: * You have tightness or pain in your chest that does not go away with rest or Nitroglycerin * You are very short of breath even with rest Call your doctor if any of the following symptoms or problems start or get worse: * Shortness of breath or difficulty breathing * Wake up at night short of breath * Chest pain * Cough * Swelling of your hands, fee, or legs * More fatigued or tired with your normal activity * Palpitations - sudden fast heart beats WEIGHT * Weigh yourself every morning after using the bathroom. * Use the same scale. * Wear the same amount of clothing. * Write your weight down on your chart. * Call your doctor if you gain more than 2-3 pounds in 1-2 days. MEDICATIONS * Use this discharge instruction sheet for instructions. * Take your medications at the time your doctor ordered. * Do not skip a dose of your medicines. * If you miss a dose of medicine, take as soon as possible, but DO NOT DOUBLE A DOSE. * Read your medicine information when you get home. * Know all of the side effects of your medicine. * Call your doctor's office if you have any side effects. * Be sure all of your doctors know what medicine and herbs you take (including cold, flu, and herbal medicine). * Pain Medicine: If you do not get relief from your pain, please call your doctor for help. Take the following with you to your follow-up doctor appointments: * Weight Chart * Medication List * List of questions Do not drink excessive alcohol, beer or wine. Current Hospital Diet Patient's current hospital diet: Low Sodium Diet (2gm Na) Discharge Diet Recommended Diet: AHA Diet (Heart Healthy), Low Sodium Diet (2gm Na) Pending Studies Studies pending at discharge: no Physician Orders On Transfer Special Precautions: Fall precautions Dressing Changes: Daily dressing changes on right lower extremity. Cover wounds on posterior and lateral aspects of right lower leg with single layer Xeroform then cover with ABD and hold in place with Kerlix or gauze. IV Therapy: Rocephin 1 gm IV qd x [address] Vital Signs: Routine. Weigh: Daily due to CHF Additional Orders: Call medical provider if weight gain more than 3 pounds in 1-2 days. Recheck INR day after discharge. May need to adjust warfarin dose. Medical Emergencies . Who to Call and When: Medical Emergencies: If at any time you feel your situation is an emergency, please call 911 immediately. . Non-Emergent Contact Non-Emergency issues call your: Primary Care Provider, Carriage Setter, Surgeon Call Non-Emergent contact if: you have a fever, your pain is not controlled, your pain is worsening, your pain is unusual for you, your pain is concerning you, wound has increased drainage, wound has increased redness, wound has increased pain, you have any medication questions . Past History Medical & Surgical History: (1) Acute on chronic diastolic (congestive) heart failure (2) Cellulitis of right lower extremity . "Provider Documentation" section prepared by Yue Salazar. . Core Measure Problem Core Measures: None
[2017-01-17 15:43] VITALS: BP 132/81; PULSE 68; TEMP 37.2; O2SAT 93
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
[2017-01-17] MEDS: WARFARIN SOD 5 MG TAB PO SCH (16:24)
[2017-01-17] MEDS: CEFTRIAXONE SOD INJ 1 GM in DEXTROSE 5% ADD-VANTAGE 50ML 50 ML IV SCH (18:55)
[2017-01-17] MEDS: RANITIDINE HCL 150 MG TAB PO SCH (20:17)
[2017-01-17 23:53] VITALS: BP 125/75; PULSE 68; TEMP 36.5; O2SAT 92
[2017-01-18] MEDS: TRAMADOL HCL 50 MG TAB PO PRN ×4 (00:47→20:37)
[2017-01-18] MEDS: OXCARBAZEPINE 150 MG TAB PO SCH ×5 (00:47→23:43)
[2017-01-18] MEDS: PANTOprazole SOD 40 MG TAB PO SCH (06:04)
[2017-01-18 07:07] LABS: INR 2.1 (0.9-1.1); PROTHROMBIN TIME (PATIENT) 23.4 SECONDS (9.0-12.0)
[2017-01-18 07:10] VITALS: BP 141/76; PULSE 68; TEMP 37.3; O2SAT 90
[2017-01-18 07:25] LABS: BUN/CREATININE RATIO 30.3 (10-20); CALCIUM 9.1 mg/dl (8.5-10.1); CREATININE 0.91 mg/dl (0.60-1.20); MAGNESIUM 2.1 mg/dl (1.8-2.4); POTASSIUM 3.9 mmol/L (3.5-5.1)
[2017-01-18] MEDS: LIDODERM (LIDOCAINE) PATCH 5% TD SCH (08:23)
[2017-01-18] MEDS: BOOST PLUS VANILLA PO SCH ×6 (08:23→17:33)
[2017-01-18] MEDS: FERROUS SULFATE 325 MG TAB PO SCH ×2 (08:26→17:31)
[2017-01-18] MEDS: CLOPIDOGREL BISULFATE 75 MG TAB PO SCH (08:26)
[2017-01-18] MEDS: AMLODIPINE BESYLATE 5 MG TAB PO SCH ×2 (08:26→20:37)
[2017-01-18] MEDS: ISOSORBIDE MONONITRATE 60 MG TABCR PO SCH (08:26)
[2017-01-18] MEDS: POTASSIUM CHLORIDE 20 MEQ TABCR PO SCH (08:26)
[2017-01-18] MEDS: RANOLAZINE 500 MG ER TAB PO SCH ×2 (08:26→20:37)
[2017-01-18] MEDS: FUROSEMIDE INJ 40 MG in SYRINGE 0 ML IV SCH (08:27)
[2017-01-18] MEDS: METOPROLOL SUCC 50MG EXT REL TAB PO SCH (08:27)
[2017-01-18] MEDS: GABAPENTIN 600 MG TAB PO SCH ×3 (08:27→20:37)
[2017-01-18] MEDS ORDERED: EUCERIN CR 120 GM JAR EXT PRN (13:15)
--- NOTE | 2017-01-18 13:35 | Hospitalist Progress Note ---
Hospitalist Progress Note Date of Service Jan 18, 2017. (Janessa Link ., PA-C) Subjective Pt evaluation today including: conversation w/ patient, conversation w/ family (son at bedside ), physical exam, lab review, review of studies, review of inpatient medication list Voiding: no voiding problems Patient feeling well. Laying in bed. Eating and drinking OK. Notes still SOB, but improved since admission. RLE cellulitis continues to improve. Still notes 9-10/10 pain when lapses w/ medication. Wound dressing changed this AM. Notes dry skin to RLE- May apply Eucerin cream PRN Patient denies any fever, chills, sweats, lightheadedness, dizziness, vision changes, CP, palpitations, edema, wheezing, cough, abdominal pain, nausea, vomiting, diarrhea, urinary symptoms, melena, numbness/tingling, weakness, muscle/joint pain, anxiety/depression, active bleeding, or new skin discoloration/changes. Per RN, doing well. Discussed checking in frequently to assess pain due to family's concerns. Also, suggested Eucerin for skin dryness outside of wound site. (Janessa Link ., PA-C) Medications Current Inpatient Medications Medications (Trade) Dose Ordered Sig/Darrick Route Start Time Stop Time Status Last Admin Dose Admin Acetaminophen (Tylenol Tab) 650 mg Q4H PRN PO 01/12/17 15:45 02/11/17 15:44 Ondansetron HCl (Zofran Inj) 4 mg Q6H PRN IV 01/12/17 15:45 02/11/17 15:44 Amlodipine Besylate (Norvasc Tab) 5 mg BID PO 01/12/17 21:00 02/11/17 20:59 01/18/17 08:26 5 MG Bisacodyl (Dulcolax Supp) 10 mg DAILY PRN IN 01/12/17 15:45 02/11/17 15:44 Clopidogrel Bisulfate (plAVix TAB) 75 mg DAILY PO 01/13/17 09:00 02/12/17 08:59 01/18/17 08:26 75 MG Ferrous Sulfate (Feosol Tab) 325 mg BIDM PO 01/12/17 16:45 02/11/17 17:59 01/18/17 08:26 325 MG Gabapentin (Neurontin Tab) 600 mg TID PO 01/12/17 21:00 02/11/17 20:59 01/18/17 08:27 600 MG Lidocaine (Lidoderm Patch 5%) 1 patch DAILY TD 01/13/17 09:00 02/12/17 08:59 01/14/17 07:52 1 PATCH Oxycodone HCl (Roxicodone Immediate Rel Tab) 5 mg Q4H PRN PO 01/12/17 15:45 01/26/17 15:44 01/17/17 11:13 5 MG Pantoprazole Sodium (Protonix Tab) 40 mg DAILYBB PO 01/13/17 06:00 02/12/17 06:59 01/18/17 06:04 40 MG Tramadol HCl (Ultram Tab) 50 mg Q4H PRN PO 01/12/17 15:45 02/11/17 15:44 01/18/17 11:37 50 MG Ranolazine (Ranexa ER Tab) 500 mg BID PO 01/12/17 21:00 02/11/17 20:59 01/18/17 08:26 500 MG Miscellaneous (Remove Lidoderm Patch) 1 ea DAILY@21 N/A 01/12/17 21:00 02/11/17 20:59 01/15/17 21:00 1 EA Ceftriaxone Sodium 1 gm/ Dextrose 50 ml @ 100 mls/hr DAILY@1800 IV 01/12/17 18:00 01/22/17 17:59 01/17/17 18:55 100 MLS/HR Miscellaneous (Iv Fluids Completed) 1 ea PRN PRN N/A 01/12/17 16:45 01/12/18 16:44 Nitroglycerin (Nitrostat Tab) 0.4 mg UD PRN SL 01/12/17 18:45 02/11/17 18:44 Heparin Sodium (Porcine) (Heparin 10 Unit/ ml 5 ml Flush) 5 ml PRN PRN FLUSH 01/12/17 23:45 02/11/17 23:44 01/15/17 22:45 5 ML Oxcarbazepine (Trileptal Tab) 150 mg QID@0000,0600,1200,1800 PO 01/13/17 06:00 02/12/17 05:59 01/18/17 11:36 150 MG Metoprolol Succinate (Toprol Xl Tab) 50 mg DAILY PO 01/14/17 09:00 02/13/17 08:59 01/18/17 08:27 50 MG Isosorbide Mononitrate (Imdur Ext Rel Tab) 120 mg QAM PO 01/14/17 09:00 02/12/17 08:59 01/18/17 08:26 120 MG Enteral Nutritional Formula (Boost Plus Vanilla) 1 can TIDM PO 01/13/17 16:45 02/12/17 16:44 01/18/17 12:16 1 CAN Warfarin Sodium (Coumadin Tab) 5 mg DAILY@16 PO 01/14/17 16:00 02/13/17 15:59 01/17/17 16:24 5 MG Potassium Chloride (Klor-Con Tab) 20 meq QAM PO 01/17/17 09:00 02/16/17 08:59 01/18/17 08:26 20 MEQ Ioversol (Optiray 320) 125 ml UD PRN IV 01/16/17 14:45 01/20/17 14:44 Furosemide 40 mg/ Syringe 4 ml @ 4 mls/min QAM IV 01/17/17 09:00 02/16/17 08:59 01/18/17 08:27 4 MLS/MIN Ranitidine HCl (zANTac TAB) 150 mg HS PO 01/17/17 21:00 02/16/17 20:59 01/17/17 20:17 150 MG (Janessa Link, PA-C) Objective Vital Signs Date Time Temp Pulse Resp B/P (MAP) Pulse Ox O2 Delivery O2 Flow Rate FiO2 01/18/17 08:20 Nasal Cannula 2.0 01/18/17 07:10 37.3 68 20 141/76 (97) 90 Nasal Cannula 2.0 01/18/17 00:00 Room Air 01/17/17 23:53 36.5 68 18 125/75 (92) 92 Room Air 01/17/17 16:00 Room Air 01/17/17 15:43 37.2 68 20 132/81 (98) 93 Room Air (Janessa Link, PA-C) Physical Exam General Appearance: no apparent distress, + obese, + pertinent finding (2L O2 NC ) Eyes: PERRL ENT: hearing grossly normal Neck: supple Respiratory/Chest: no respiratory distress, no accessory muscle use, + crackles (bilateral lung bases ) Cardiovascular: regular rate, rhythm, + systolic murmur Abdomen: normal bowel sounds, non tender, soft, + pertinent finding (RLQ ostomy ) Extremities: + swelling (+1 pitting edema to bilateral lower extremities ), + pertinent finding (RLE wound site dressed in clean dressing) Neurologic/Psychiatric: alert, normal mood/affect, oriented x 3 Skin: normal color, warm/dry, no rash (Janessa Link ., PA-C) Laboratory Results Last 24 Hours Test 01/18/17 06:37 01/18/17 06:38 Prothrombin Time 23.4 SECONDS Prothromb Time International Ratio 2.1 Sodium Level 135 mmol/L Potassium Level 3.9 mmol/L Chloride Level 100 mmol/L Carbon Dioxide Level 27 mmol/L Anion Gap 8.0 mmol/L Blood Urea Nitrogen 28 mg/dl Creatinine 0.91 mg/dl Est Creatinine Clear Calc Drug Dose 45.5 ml/min Estimated GFR () 66.7 Estimated GFR (Non- 57.5 BUN/Creatinine Ratio 30.3 Random Glucose 105 mg/dl Calcium Level 9.1 mg/dl Magnesium Level 2.1 mg/dl (Janessa Link ., PA-C) Assessment and Plan 86 y/o female with a history of chronic diastolic CHF, CAD s/p stents, HTN, HLD , 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 Acute on chronic diastolic heart failure- STABLE: - Admitted to telemetry- no acute events -- Transferred to med/surg 01/17 - Monitor daily weights and I&Os- negative ~6L - Lasix 40 mg IV daily- on discharge, increase home Lasix to 40 mg daily - O2 protocol, wean as tolerated - Echo 12/23/16- grade II diastolic dysfunction. LVEF 55-60%. No wall motion abnormalities. - Metoprolol succinate increased from 25 mg daily to 50 mg daily per cardiology recommendations - Cardiology consulted, appreciate recommendations- stable for discharge ?Iliac artery stenosis, 6 cm AAA - Arterial Dopplers showed possible iliac artery stenosis in RLE - Aorta ultrasound shows 6.1 cm infrarenal AAA. Non diagnostic evaluation of iliac arteries - CTA aorta shows patent vasculature in lower extremities. 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 - Vascular surgery consulted, appreciate recommendations- no surgical intervention recommended at this time. Follow up with Dr. Martinez in 6 months for AAA. Chest pain- RESOLVED: - Troponins trended- negative - EKGs w/ no ischemic changes RLE cellulitis: - Consult ID, appreciate recommendations- continue antibiotics at least 14 days - f/u outpatient - Continue Rocephin 1 gm IV daily- day #7 of 14- last day of 14 day treatment on 01/25 - Wound care nurse consulted- f/u outpatient Oral candidiasis- RESOLVED: Treated w/ Diflucan CAD s/p stents, HTN, s/p pacemaker secondary to complete heart block- STABLE: - Continue Plavix 75 mg qd, Norvasc 5 mg BID, Ranexa 500 mg BID - Imdur increased to 120 mg qd per cardiology recommendations - Metoprolol succinate increased to 50 mg qd per cardiology recommendations CKD, stage III- STABLE: Follow PRP Trigeminal neuralgia: Continue Gabapentin 600 mg TID and Trileptal 150 mg QID Chronic DVT/PE with h/o IVC filter, on chronic Coumadin therapy w/ supratherapeutic INR at admission: Continue Warfarin to 5 mg qd- follow INR and adjust Coumadin PRN GERD: Protonix + Zantac DVT prophylaxis: Coumadin Code Status: Level I, FULL RESUSCITATION STATUS Dispo: Pending [facility]- CM consulted (Janessa Link, DOYLE) Reviewed: Pt Seen/Exam by Me (Mckayla Blunt MD) History Physician Investigations Consultant Supervision Note: I interviewed and examined the patient. Discussed with SANDRA Link and agree with findings and plan as documented in the note. Any exceptions or clarifications are listed here: Doing very well today,awaiting placement. Still with pain in rt leg but taking tramadol and tylenol Tele reviewed, Vitals reviewed, I/Os show diuresis, wt down NAD, AAOx3 RRR +3/6 systolic murmur at apex radiating to axilla, also with 2/6 LEROY at RUSB Lungs with crackles at bases and decreased BS left base Abd +BS, soft, NT ND Ext Right foot with 1+ pitting edema, can now feel faintly palpable DP pulse on right, kerlix wrap and dressing just replaced right leg and did not remove, left leg with 1-2+ pitting edema Skin-erythema right foot and ankle but none proximal to top of kerlix in prox tibia 86 yo female here with typical angina likely secondary to acute on chronic diastolic CHF and increased cardiac demand. Angina now resolved. Now found to have abnormal monophasic flow through RLE arteries but angiogram of RLE with no stenosis; with poorly healing wound although has made some slow progress on abx Angina resolved -appreciate Cardiology recs to increase Imdur and Toprol for antianginal effect and for improved cardiac output--> Primary Forester Aide is actually Dr. Clark but seen by [facility] Cardiology this admission (I consulted the wrong Cardiology team but they have seen her and signed off)--> recommend f/u with Dr. Clark in 1-2 weeks after discharge -continue Rocephin for t least 14 more total days from this admission date and f /u with Wound Clinic and ID as outpt -Vascular recommends no treatment of vascular PAD RLE -continue diuresis with IV lasix one more day then switch to po lasix 40mg daily and 20mg in afternoon prn, watch lytes and renal function -Mitral valve stenosis and regurg/Aortic stenosis--> watch extremes of fluid status -coumadin for DVT proph-follow INR closely given antibiotics -dcd Diflucan as has prolonged QT and INR high, thrush resolved - to [facility] tomorrow Documented By: Mckayla Blutn (Mckayla Blunt MD)
[2017-01-18 15:16] VITALS: BP 130/75; PULSE 64; TEMP 37; O2SAT 94
[2017-01-18] MEDS: WARFARIN SOD 5 MG TAB PO SCH (15:56)
[2017-01-18 16:00] VITALS: O2SAT 94
[2017-01-18] MEDS: ACETAMINOPHEN 325 MG TAB PO PRN (17:30)
[2017-01-18] MEDS: CEFTRIAXONE SOD INJ 1 GM in DEXTROSE 5% ADD-VANTAGE 50ML 50 ML IV SCH (17:30)
[2017-01-18] MEDS: RANITIDINE HCL 150 MG TAB PO SCH (20:37)
[2017-01-18 23:53] VITALS: BP 128/82; PULSE 66; TEMP 36.5; O2SAT 91
[2017-01-19] VITALS: O2SAT 94
[2017-01-19] MEDS: OXCARBAZEPINE 150 MG TAB PO SCH (06:06)
[2017-01-19] MEDS: PANTOprazole SOD 40 MG TAB PO SCH (06:06)
[2017-01-19] MEDS: TRAMADOL HCL 50 MG TAB PO PRN ×2 (06:12→11:04)
[2017-01-19 07:31] VITALS: BP 145/71; PULSE 63; TEMP 36.8; O2SAT 89
[2017-01-19] MEDS: BOOST PLUS VANILLA PO SCH ×2 (08:00)
[2017-01-19 08:04] LABS: INR 2.1 (0.9-1.1); PROTHROMBIN TIME (PATIENT) 22.7 SECONDS (9.0-12.0)
[2017-01-19] MEDS ORDERED: FURO-85 PO ×2 (08:49→10:54)
[2017-01-19] MEDS: FERROUS SULFATE 325 MG TAB PO SCH (08:59)
[2017-01-19] MEDS: LIDODERM (LIDOCAINE) PATCH 5% TD SCH (09:00)
[2017-01-19] MEDS: ISOSORBIDE MONONITRATE 60 MG TABCR PO SCH (09:01)
[2017-01-19] MEDS: GABAPENTIN 600 MG TAB PO SCH (09:03)
[2017-01-19] MEDS: AMLODIPINE BESYLATE 5 MG TAB PO SCH (09:03)
[2017-01-19] MEDS: CLOPIDOGREL BISULFATE 75 MG TAB PO SCH (09:03)
[2017-01-19] MEDS: RANOLAZINE 500 MG ER TAB PO SCH (09:05)
[2017-01-19] MEDS: METOPROLOL SUCC 50MG EXT REL TAB PO SCH (09:05)
[2017-01-19] MEDS: ACETAMINOPHEN 325 MG TAB PO PRN (09:14)
[2017-01-19] MEDS: POTASSIUM CHLORIDE 20 MEQ TABCR PO SCH (09:24)
[2017-01-19] MEDS: FUROSEMIDE INJ 40 MG in SYRINGE 0 ML IV SCH (09:25)
[2017-01-19] MEDS ORDERED: OXYC1TAB3 PO (09:54)
[2017-01-19] MEDS ORDERED: ULT/50 PO (09:54)
[2017-01-19] MEDS ORDERED: CEFT1INJ26 IV (09:55)
--- NOTE | 2017-01-19 09:56 | Discharge Instructions ---
Discharge Instructions Date of Service Jan 19, 2017. Admission Reason for Admission: Cellulitis Of Right Lower Extremity Discharge Discharge Diagnosis / Problem: Acute on chronic diastolic CHF exacerbation, RLE cellulitis Discharge Goals Goal(s): Decrease discomfort, Improve function, Increase independence, Improve disease control, Therapeutic intervention, Prevent Disease Progression Activity Recommendations Activity Level: Assistance Required Therapies: Physical Therapy, Occupational Therapy . Additional Information Patient informed of condition: Yes Advance Directives: Yes DNR: No Level of Care: Acute Rehab Communicable Disease: No Prognosis: Improving Oxygen at (LPM): by protocol, keep O2 sat >90% Hill Catheter: No Instructions / Follow-Up Instructions / Follow-Up The patient was admitted with chest pain and also found to have an acute exacerbation of her chronic diastolic congestive heart failure. Acute coronary syndrome was ruled out. Cardiology was consulted, who increased the patient's Imdur and Toprol XL, and the chest pain has not occurred again. She was diuresed with IV Lasix with good urine output. The patient is also being treated for a cellulitis infection in the right lower extremity. Infectious disease was consulted, and it was recommended that the antibiotic be continued for 14 more days. The patient was assess by vascular surgery while inpatient due to concern for possible right iliac artery stenosis, however CTA revealed no significant stenosis, and no surgical intervention was recommended at this time. The patient is now medically stable for discharge. Medications: *Continue Rocephin 1 gm IV qd x 6 more days to complete 14 day course. *Lasix 40 mg PO QAM and Lasix 20 mg QPM *Imdur increased to 120 mg PO qd. *Toprol XL increased to 50 mg PO qd. *Continue warfarin 5 mg PO qd. *Continue other home medications as prescribed. Follow up: *Follow up with [facility] provider within 24-48 hours. *Follow up with primary care provider within 1 week after discharge regarding hospital stay and changes to medications. *Repeat INR one day after discharge and adjust warfarin dose as needed. *Follow up with infectious disease in 1 week to ensure resolution of infection or to determine if further antibiotics are needed. *Follow up with wound care clinic within 1 week regarding wounds on posterior and lateral aspects of right lower extremity. *Follow up with cardiology within 1-2 weeks *Follow up with Dr. aMrtinez of vascular surgery in 6 months regarding AAA. Please seek medical attention if patient experiences fevers, chills, sweats, dizziness/lightheadedness, loss of consciousness, fall, chest pain, shortness of breath, nausea, vomiting, numbness or tingling, or if the right lower extremity has increased redness, swelling, warmth, or tenderness. Call 911 and go to the Emergency Room if: * You have tightness or pain in your chest that does not go away with rest or Nitroglycerin * You are very short of breath even with rest Call your doctor if any of the following symptoms or problems start or get worse : * Shortness of breath or difficulty breathing * Wake up at night short of breath * Chest pain * Cough * Swelling of your hands, fee, or legs * More fatigued or tired with your normal activity * Palpitations - sudden fast heart beats WEIGHT * Weigh yourself every morning after using the bathroom. * Use the same scale. * Wear the same amount of clothing. * Write your weight down on your chart. * Call your doctor if you gain more than 2-3 pounds in 1-2 days. MEDICATIONS * Use this discharge instruction sheet for instructions. * Take your medications at the time your doctor ordered. * Do not skip a dose of your medicines. * If you miss a dose of medicine, take as soon as possible, but DO NOT DOUBLE A DOSE. * Read your medicine information when you get home. * Know all of the side effects of your medicine. * Call your doctor's office if you have any side effects. * Be sure all of your doctors know what medicine and herbs you take (including cold, flu, and herbal medicine). * Pain Medicine: If you do not get relief from your pain, please call your doctor for help. Take the following with you to your follow-up doctor appointments: * Weight Chart * Medication List * List of questions Do not drink excessive alcohol, beer or wine. Current Hospital Diet Patient's current hospital diet: Low Sodium Diet (2gm Na) Discharge Diet Recommended Diet: AHA Diet (Heart Healthy), Low Sodium Diet (2gm Na) Fluid Restriction: 1800 ml (7 cups) Procedures Procedures Performed: Chest xray Arterial Doppler bilateral lower extremities Aorta US CTA Aorta and bilat lower extremity runoff Pending Studies Studies pending at discharge: no Physician Orders On Transfer Special Precautions: Fall precautions Dressing Changes: Daily dressing changes on right lower extremity. Cover wounds on posterior and lateral aspects of right lower leg with single layer Xeroform then cover with ABD and hold in place with Kerlix or gauze. IV Therapy: IV Rocephin Vital Signs: Routine Weigh: Daily weights Additional Orders: Call medical provider if weight gain more than 3 pounds in 1-2 days. Recheck INR day after discharge. May need to adjust warfarin dose. POLST Discussion: Not Applicable Laboratory Results Last 24 Hours Test 01/19/17 07:07 Prothrombin Time 22.7 SECONDS Prothromb Time International Ratio 2.1 Medical Emergencies . Who to Call and When: Medical Emergencies: If at any time you feel your situation is an emergency, please call 911 immediately. . Non-Emergent Contact Non-Emergency issues call your: Primary Care Provider Call Non-Emergent contact if: you have a fever, your pain is not controlled, your pain is worsening, your pain is unusual for you, your pain is concerning you, wound has increased drainage, wound has increased redness, wound has increased pain, you have any medication questions . . "Provider Documentation" section prepared by Janessa Link. . Core Measure Problem Core Measures: None
--- NOTE | 2017-01-19 09:59 | Discharge Summary ---
Discharge Summary Date of Service Jan 19, 2017. (Janessa Link, DOYLE) Discharge Summary Admission Date: Jan 13, 2017 at 22:16 Discharge Date: Jan 17, 2017 Discharge Disposition: Rehab Principal Diagnosis: Acute on chronic diastolic CHF Problems/Secondary Diagnoses: Acute on chronic diastolic heart failure ?Iliac artery stenosis 6 cm AAA Chest pain RLE cellulitis Oral candidiasis CAD s/p stents HTN s/p pacemaker secondary to complete heart block CKD, stage III Trigeminal neuralgia Chronic DVT/PE with h/o IVC filter, on chronic Coumadin supratherapeutic INR at admission GERD Immunizations: Have You Had Influenza Vaccine: Yes Influenza Vaccine Date: Jan 01, 2013 History of Tetanus Vaccine?: UTD History of Pneumococcal: Yes Pneumococcal Date: May 03, 2011 History of Hepatitis B Vaccine: No Procedures: CHEST ONE VIEW PORTABLE CLINICAL HISTORY: chest pain chest pain COMPARISON STUDY: 12/31/2016 FINDINGS: Mildly progressive cardiomegaly. Congestive failure progressive from the prior study. Bipolar cardiac pacemaker in acceptable position. Interval development of small bilateral pleural effusions. IMPRESSION: Congestive heart failure progressive from the prior exam The above report was generated using voice recognition software. It may contain grammatical, syntax or spelling errors. Electronically signed by: Adria Smiley M.D. 01/12/2017 11:01 AM Dictated Date/Time: 01/12/2017 10:59 AM The status of this report is Signed. Draft = Not yet reviewed or approved by Radiologist. Signed = Reviewed and approved by Radiologist. ART DOP LOWER EXT BILAT CLINICAL HISTORY: poorly healing wound rt foot/leg COMPARISON STUDY: No previous studies for comparison. FINDINGS: The study was limited from a technical standpoint. The patient had multiple open wounds within the right ankle and foot as well as overlying bandages. The patient could not tolerate ankle brachial indices on the right. On the left, the brachial systolic pressures 130 mg of mercury. Posterior tibial systolic pressure was 152 mg of mercury. Dorsalis pedis systolic pressure was 127 mmHg. The ankle arm index on the left was normal measuring 1.2. On the left there was biphasic flow within the common femoral artery. There is biphasic flow within the superficial femoral artery. There is triphasic flow within the left popliteal. There is triphasic flow within the posterior tibial and anterior tibial and peroneal arteries. On the right there is monophasic flow within the common femoral artery. There is monophasic flow within the superficial femoral artery. There is monophasic flow within the popliteal artery. There is monophasic flow with the proximal posterior tibial artery antecubital artery, and peroneal artery. The mid and distal posterior tibial and anterior tibial and peroneal arteries the right could not be evaluated. No high velocity jets were identified. IMPRESSION: 1. Technically limited study 2. Normal study for age on the left. Normal left ankle-brachial index of 1.2. Normal triphasic and biphasic waveforms 3. The patient could not tolerate a right ankle brachial index. There is monophasic flow throughout the visualized arterial system on the right lower extremity. The diffuse monophasic flow raises the possibility of a more proximal iliac artery stenosis. Electronically signed by: Vinicius Cerda M.D. 01/13/2017 9:36 PM Dictated Date/Time: 01/13/2017 9:32 PM The status of this report is Signed. Draft = Not yet reviewed or approved by Radiologist. Signed = Reviewed and approved by Radiologist AORTOILIAC DUPLEX ULTRASOUND CLINICAL HISTORY: Aneurysm COMPARISON STUDY: CT scan dated 12/23/2016 FINDINGS: There is an infrarenal abdominal aortic aneurysm measuring 6.1 cm in maximal diameter. The peak systolic velocity within the aorta was 63 cm/s. The bifurcation and common iliac arteries could not be visualized. CT angiography would be necessary if evaluation of these vessels is deemed clinically necessary. IMPRESSION: 1. Infrarenal abdominal aortic aneurysm measuring 6.1 cm in diameter 2. Nondiagnostic evaluation of the iliac arteries which could not be visualized Electronically signed by: Vinicius Cerda M.D. 01/15/2017 2:49 PM Dictated Date/Time: 01/15/2017 2:45 PM The status of this report is Signed. Draft = Not yet reviewed or approved by Radiologist. Signed = Reviewed and approved by Radiologist ANGIO AA JEFFREY LE RUNOFF CLINICAL HISTORY: 87 years-old Female presenting with peripheral arterial disease, aortoiliac disease. TECHNIQUE: Multidetector CT angiography of the abdomen and pelvis and bilateral lower extremities was performed after the administration of intravenous contrast. 3-D volumetric and/or maximum intensity projection (MIP) images were subsequently reconstructed for review. IV contrast: 119 mL of Optiray 320. A dose lowering technique was used consistent with the principles of ALARA (as low as reasonably achievable). Stenosis measurements were based on NASCET-like criteria. COMPARISON: 01/12/2014. CT DOSE (mGy.cm): The estimated cumulative dose is 1689.26 mGycm. FINDINGS: College Recruiter topogram: Unremarkable. Vasculature: Calcified and noncalcified atherosclerotic plaque throughout the tortuous aorta. The infrarenal abdominal aortic aneurysm now measures 6.1 x 5.8 cm, previously 5.0 x 5.0 cm when remeasured at a comparable level. No evidence of rupture or periaortic inflammatory change. The aneurysm extends to the level of the aortic bifurcation but not into the iliac arteries. Celiac axis patent supplying the conventional hepatic arterial anatomy. Mild narrowing of the proximal superior mesenteric artery immediately beyond the origin, either secondary to atherosclerotic plaque or short segment dissection. This has a minimal diameter of 4 mm in comparison to the normal distal diameter of 7 mm. Single right main renal artery with significant atherosclerotic plaque resulting in narrowing immediately distal to its origin with a minimal diameter of 1 to 2 mm relative to the normal distal diameter of 4 mm. Two left renal arteries, the larger with a patent origin, and the smaller with calcified atherosclerotic plaque at its origin. Inferior mesenteric artery not clearly visualized. Arteries to the right lower extremity is patent with a three-vessel runoff at least to the level of the ankle mortise. Evaluation of the left lower extremity in the popliteal fossa is limited due to the marking artifact arising from the total left knee arthroplasty. Allowing for this, arteries to the left lower extremity are also patent with a three-vessel runoff at least to the level of the ankle mortise. Dorsalis pedis and plantar arteries patent bilaterally. Remaining abdomen and pelvis: Lung bases: Dependent opacities likely extensive atelectasis associated with the small right and moderate left pleural effusions. Multichamber enlargement of the heart. 2 cardiac leads are partially visualized. Mitral annular and coronary artery calcification. No pericardial effusion. Liver: Allowing for the phase of contrast, normal morphology. No focal lesion. Conventional hepatic arterial anatomy. Biliary: No gross biliary ductal dilatation allowing for phase of contrast. Normal gallbladder. Pancreas: Severe parenchymal atrophy. Spleen: Normal. Adrenal glands: Nodular thickening of the adrenal glands, similar to prior exam. Kidneys and ureters: Normal. No hydronephrosis. Bladder: Posterior displacement of the bladder secondary to abdominal peroneal resection and hysterectomy. Gas within the bladder could suggest recent catheterization. Pelvic organs: Uterus surgically absent. No adnexal masses. Bowel: Postsurgical changes of abdominoperineal resection and total proctocolectomy. A right abdominal ileostomy is in place. Associated parastomal hernia containing small bowel and mesentery. No associated fluid or inflammatory change to suggest granulation. The neck of the parastomal hernia measures 2.3 cm. No bowel obstruction. Epiphrenic diverticulum at the gastroesophageal junction or gastric diverticulum may be present. Peritoneal cavity: No free fluid or intraperitoneal gas. Lymph nodes: Multiple prominent retroperitoneal lymph nodes similar to prior exam and subcentimeter in the short axis. These may be reactive. Abdominal wall: Parastomal hernia as described above. Additional fat-containing ventral hernia immediately to the right of midline in the midabdomen with a neck measuring 3.8 cm. No evidence of strangulation. Additional smaller fat-containing ventral hernia in the epigastrium. Diastases of the abdominis rectus. Musculoskeletal: Likely posttraumatic deformity of the right superior and inferior pubic rami. Degenerative changes of the thoracolumbar spine. Bilateral lower extremities: Total left knee arthroplasty with patellar resurfacing. No gross evidence of fracture or hardware complication. Diffuse subcutaneous edema in the lower extremities, right greater than left. IMPRESSION: 1. Interval increase in size of the infrarenal abdominal aortic aneurysm, which now measures 6.1 x 5.8 cm, previously 5.0 x 5.0 cm when remeasured at a comparable level. No evidence of rupture. 2. Less than 50% stenosis of the proximal SMA immediately beyond its origin. 3. Approximately 75% stenosis of the single right main renal artery immediately distal to its origin. 4. Patent vasculature to the bilateral lower extremities. 5. Moderate left and small right pleural effusions with extensive atelectasis. 6. Gas within the bladder could suggest recent catheterization. 7. Postsurgical changes of total proctocolectomy with abdominal prior resection. Prominent parastomal hernia at the right abdominal ileostomy. Electronically signed by: David Land M.D. 01/16/2017 4:06 PM Dictated Date/Time: 01/16/2017 3:48 PM The status of this report is Signed. Draft = Not yet reviewed or approved by Radiologist. Signed = Reviewed and approved by Radiologist. 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 * Mild mitral stenosis. * Moderate mitral regurgitation. Dyslipidemia Pacemaker in situ due to complete heart block CKD stage III Major Depressive disorder Ulcerative colitis s/p ileostomy Renal artery stenosis--> 75% stenosis of right main renal artery RLE cellulitis with open wounds PAD group home anticoagulation (Mckayla Blunt MD) Medication Reconciliation New Medications: Furosemide (Lasix) 40 Mg Tab 40 MG PO DAILY for 30 Days, #30 TAB Furosemide (Lasix) 20 Mg Tab 20 MG PO q1500 for 30 Days, TAB Eucerin (Hydrocerin) 360 Appln/120 Gm Cr 1 APPLN EXT BID PRN for DRYNESS for 30 Days Isosorbide Mononitrate (Isosorbide Mononitrate ER) 60 Mg Tab 120 MG PO QAM for 30 Days, #60 TAB Metoprolol Succinate (Metoprolol Succinate ER) 50 Mg Tabcr 50 MG PO DAILY for 30 Days, #30 TABS Nitroglycerin (Nitrostat) 0.4 Mg/1 Tab Subl 0.4 MG SL UD PRN for Chest Pain for 30 Days Warfarin Sod (Coumadin) 5 Mg Tab 5 MG PO DAILY@16 for 30 Days, #30 TAB Changed Medications: Oxycodone Ir (Roxicodone Ir) 5 Mg Tab 1 TAB PO Q4H PRN for mod-svr pain for 3 Days, #12 TAB (Changed from: 1-2 TAB) Potassium Ext Rel (Klor-Con) 20 Meq Tabcr 20 MEQ PO BID for 30 Days, #60 TAB (Changed from: TIDM) Continued Medications: Acetaminophen (Apap Extra Strength) 500 Mg Tab 500 MG PO Q4 PRN for Pain or Fever Amlodipine Besylate (Norvasc) 5 Mg Tab 5 MG PO BID, TAB Bisacodyl (Bisacodyl Laxative) 10 Mg Sup 10 MG AL DAILY PRN for Constipation Ceftriaxone Sodium (Rocephin) 1 Gm Inj 1 GM IV DAILY for 6 Days, #6 DOSE (This prescription has been renewed) Clopidogrel (Plavix) 75 Mg Tab 75 MG PO DAILY, TAB Ferrous Sulfate (Ferrous Sulfate) 325 Mg Tab 325 MG PO BIDM for 30 Days, TAB Gabapentin (Gabapentin) 300 Mg Cap 600 MG PO TID, #720 Lidocaine (Lidoderm Patch 5%) 1 Ea Tdsy 1 PATCH TD ONAMOFFPM to rt ankle Magnesium Hydroxide (Milk Of Magnesia) 30 Ml Susp 30 ML PO DAILY PRN for Constipation, ML Multivitamins/Minerals (Mvi With Minerals) Tab 1 TAB PO DAILY, TAB Ensure no Vitamin K in this multivitamin Oxcarbazepine (Trileptal) 150 Mg Tab 150 MG PO QID, 0 Refills Pantoprazole (Protonix) 40 Mg Tab 40 MG PO DAILYBB, #30 TAB Polyethylene Glycol 3350 (Miralax) 1 Pow Pow 17 GM PO DAILY PRN for Constipation, #527 GM Ranolazine (Ranexa) 500 Mg Tab 500 MG PO BID Saline (Nance Nasal Butler) 0.65 % Spr 1 SPRAY FORREST Q3H PRN for dry nasal passages Sodium Phosphate/Biphosphate (Fleet Enema) Bina 1 EA AL DAILY PRN for Constipation, BTL Tramadol Hcl (Ultram) 50 Mg Tab 50 MG PO Q4H PRN for Moderate Pain for 3 Days, #12 TAB (This prescription has been renewed) PRN PAIN Discontinued Medications: Fluconazole (Diflucan) 100 Mg Tab 100 MG PO DAILY, TAB Furosemide (Furosemide) 20 Mg Tab 20 MG PO DAILY, #90 Isosorbide Mononitrate Ext Rel (Imdur Ext Rel) 30 Mg Tabcr 90 MG PO QAM, TAB Magnesium Oxide (Magnesium-Oxide) 400 Mg Tab 400 MG PO DAILY for 30 Days, #30 TAB Metoprolol Succ (Toprol Xl) (Toprol-Xl) 25 Mg Tabcr 25 MG PO DAILY, #30 TAB Nystatin (Nystatin Suspension) 1 Ml Susp 5 ML MT QID swish and spit Warfarin Sodium (Warfarin Sodium) Unknown Strength Tab Unknown Dose PO HS, TAB Referrals At Discharge Follow up Referrals: Electrotyper Apprentice Referral - Within 1-2 Weeks with Rafael Clark DO Infectious Disease - Within 1 Week with Jennifer. Perez D.O. Physician Referral - Within 1 Week with Adria Montgomery DO Surgery Referral - Within 6 Months with Javi Martinez M.D. Discharge Exam Review of Systems: Constitutional: No fever, No chills, No sweats, No weakness, No fatigue ENT: No hearing loss Respiratory: No cough, No shortness of breath, No hemoptysis Cardiovascular: No chest pain, No edema, No palpitations Abdomen: No pain, No nausea, No vomiting, No diarrhea, No constipation Musculoskeletal: + swelling (RLE), No joint pain, No muscle pain, No calf pain Genitourinary - Female: No dysuria, No hematuria Neurologic: No weakness, No numbness/tingling Psychiatric: No depression symptoms, No anxiety Endocrine: No fatigue Hematologic / Lymphatic: No abnormal bleeding/bruising Integumentary: No rash, No itch, No new/changing skin lesions Physical Exam: General Appearance: no apparent distress, + obese Eyes: normal inspection, PERRL ENT: hearing grossly normal Neck: supple Respiratory/Chest: no respiratory distress, no accessory muscle use, + decreased breath sounds (bilateral lung bases), + crackles (bilateral lung bases ) Cardiovascular: regular rate, rhythm, + systolic murmur Abdomen / GI: normal bowel sounds, non tender, soft, + pertinent finding ( RLQ ostomy ) Extremities: no calf tenderness, + swelling (+1 pitting edema to RLE ), + pertinent finding (RLE wound dressed in clean dressing ) Neurologic/Psychiatric: alert, normal mood/affect, oriented x 3 Skin: normal color, warm/dry, no rash (Janessa Link, SHARADC) Hospital Course Admission H&P: Pt is a 86 yo female who presents to the ER with complaints of chest pain that began this AM. Pt states that pain did now wake her up from sleep but she noticed it when she was sitting up in her bed. Pt reports pain was in the center of her chest with no radiation and lasted till this afternoon upon her visit to the ER. Pt is currently at [facility] where she she being treated with IV antibiotics for right lower extremity cellulitis. Pt currently denies any chest pain, shortness of breath, fevers, chills, N/V/D Physical Exam Vital Signs Date Time Temp Pulse Resp B/P (MAP) Pulse Ox O2 Delivery O2 Flow Rate FiO2 01/12/17 15:07 62 16 130/82 01/12/17 14:12 63 16 123/77 01/12/17 13:39 76 01/12/17 13:28 71 16 141/93 01/12/17 12:40 64 16 129/76 94 Nasal Cannula 4.0 01/12/17 11:23 94 Room Air 4.0 01/12/17 11:23 88 Room Air 4.0 01/12/17 11:22 74 16 126/74 86 Nasal Cannula 4.0 Nebulizer 01/12/17 10:31 87 01/12/17 10:23 36.5 87 16 130/83 98 Room Air General Appearance: WD/WN, no apparent distress Head: normocephalic, atraumatic Eyes: normal inspection, PERRL, EOMI, sclerae normal Neck: supple, no adenopathy, thyroid normal, no JVD Respiratory/Chest: chest non-tender, + decreased breath sounds, + crackles Cardiovascular: regular rate, rhythm, no gallop, no JVD, no murmur Abdomen/GI: normal bowel sounds, non tender, soft, no organomegaly Extremities/Musculoskelatal: no calf tenderness, normal capillary refill, + pedal edema, + pertinent finding (right lower ext swelling and redness, in bandage) Neurologic/Psych: alert, normal mood/affect, normal reflexes, oriented x 3 Skin: normal color, warm/dry, no rash Lymphatic: no adenopathy Hospital Course: Acute on chronic diastolic heart failure- STABLE: - Admitted to telemetry- no acute events -- Transferred to med/surg 01/17 - Monitor daily weights and I&Os- negative ~7L - Lasix 40 mg IV daily- on discharge, Lasix to 40 mg QAM and 20 mg in the afternoon - O2 protocol, wean as tolerated for O2 sats >90% - Echo 12/23/16- grade II diastolic dysfunction. LVEF 55-60%. No wall motion abnormalities. - Metoprolol succinate increased from 25 mg daily to 50 mg daily per cardiology recommendations - Cardiology consulted, appreciate recommendations- stable for discharge- follow -up with Dr. Clark in 1-2 weeks ?Iliac artery stenosis, 6 cm AAA - Arterial Dopplers showed possible iliac artery stenosis in RLE - Aorta ultrasound shows 6.1 cm infrarenal AAA. Non diagnostic evaluation of iliac arteries - CTA aorta shows patent vasculature in lower extremities. 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 - Vascular surgery consulted, appreciate recommendations- no surgical intervention recommended at this time. Follow up with Dr. Martinez in 6 months for AAA. Chest pain- RESOLVED: - Troponins trended- negative - EKGs w/ no ischemic changes RLE cellulitis: - Consult ID, appreciate recommendations- continue antibiotics at least 14 days - f/u outpatient - Continue Rocephin 1 gm IV daily- day #8 of 14- last day of 14 day treatment on 01/25 - Wound care nurse consulted- f/u outpatient Oral candidiasis- RESOLVED: Treated w/ Diflucan CAD s/p stents, HTN, s/p pacemaker secondary to complete heart block- STABLE: - Continue Plavix 75 mg qd, Norvasc 5 mg BID, Ranexa 500 mg BID - Imdur increased to 120 mg qd per cardiology recommendations - Metoprolol succinate increased to 50 mg qd per cardiology recommendations CKD, stage III- STABLE: Follow PRP Trigeminal neuralgia: Continue Gabapentin 600 mg TID and Trileptal 150 mg QID Chronic DVT/PE with h/o IVC filter, on chronic Coumadin therapy w/ supratherapeutic INR at admission: Continue Warfarin to 5 mg qd- follow INR and adjust Coumadin PRN GERD: Protonix DVT prophylaxis: Coumadin Code Status: Level I, FULL RESUSCITATION STATUS Dispo: Discharge to [place] Total Time Spent: Greater than 30 minutes This includes examination of the patient, discharge planning, medication reconciliation, and communication with other providers. (Janessa Link PA-C) Discharge Instructions Please refer to the electronic Patient Visit Report (Discharge Instructions) for additional information. (Janessa Link PA-C) Follow-Up Follow up with [facility] provider within 24-48 hours. Follow up with primary care provider within 1 week after discharge regarding hospital stay and changes to medications. Follow up with infectious disease in 1 week to ensure resolution of infection or to determine if further antibiotics are needed. Follow up with wound care clinic within 1 week regarding wounds on posterior and lateral aspects of right lower extremity. Follow up with cardiology within 1-2 weeks. Follow up with Dr. Martinez of vascular surgery in 6 months regarding AAA. (Janessa Link PA-C) Additional Copies To [facility]; David Cazares MD Reviewed: Pt Seen/Exam by Me (Mckayla Blunt MD) History Physician Teacher Instrumental Supervision Note: I interviewed and examined the patient. Discussed with SANDRA Link and agree with findings and plan as documented in the note. Any exceptions or clarifications are listed here: Doing very well today,awaiting placement. Still with pain in rt leg but taking tramadol and tylenol, continues to diurese. No diarrhea in ostomy bag Tele reviewed, Vitals reviewed, I/Os show diuresis NAD, AAOx3 RRR +3/6 systolic murmur at apex radiating to axilla, also with 2/6 LEROY at RUSB Lungs with crackles at bases and decreased BS left base Abd +BS, soft, NT ND Ext Right foot with trace pitting edema much improved from previous, can now feel faintly palpable DP pulse on right, kerlix wrap and dressing just replaced right leg and did not remove, left leg with trace pitting edema much improved Skin-erythema right foot and ankle much improved and only faint 86 yo female here with typical angina likely secondary to acute on chronic diastolic CHF and increased cardiac demand. Angina now resolved. Now found to have abnormal monophasic flow through RLE arteries but angiogram of RLE with no stenosis; with poorly healing wound although has made some slow progress on abx Angina resolved Diuresed tremendously and still has more to go but is stable for discharge. Right leg cellulitiis and wounds are slowly improving -appreciate Cardiology recs to increase Imdur and Toprol for antianginal effect and for improved cardiac output--> Primary Electrotyper Apprentice is actually Dr. Clark but seen by [facility] Cardiology this admission (I consulted the wrong Cardiology team but they have seen her and signed off)--> recommend f/u with Dr. lCark in 1-2 weeks after discharge -continue Rocephin for at least 14 more total days from this admission date and f/u with Wound Clinic and ID as outpt -Vascular recommends no treatment of vascular PAD RLE -continue diuresis increased dose of home po lasix to 40mg daily and 20mg in afternoon prn, watch lytes and renal function periodically -Mitral valve stenosis and regurg/Aortic stenosis--> watch extremes of fluid status, needs continued surveillance by Cardiology -coumadin for DVT proph-follow INR closely given antibiotics -Consider decreasing dose of amlodipine in future if peripheral edema continues to be a problem despite diuresis - to [facility] today in stable condition, needs aggressive PT/OT, wound care, IV antibiotics Documented By: Mckayla Blunt (Mckayla Blunt MD)
[2017-01-19 10:46] VITALS: BP 145/71; PULSE 63; TEMP 36.8
[2017-01-19 10:51] VITALS: O2SAT 94
[2017-01-19] MEDS ORDERED: NTRSLP4 SL (10:54)
[2017-01-19] MEDS ORDERED: POTA20TA16 PO (10:54)
[2017-01-19] MEDS ORDERED: ECRCR EXT (10:54)
[2017-01-22] MEDS ORDERED: CEFT1INJ57 IV (11:58)
== END 2017-01-19 12:10 | DRG 291 ==
LOC: EDBD 10:07 → C.EDB 10:09 → C.2T 15:35 → ENRESERV 15:53 → INTOOBSV 22:16 → OBSVTOIN 22:16 → ENRESERV 01-17 19:05 → C.MS2W 01-17 19:29
PROVIDERS: ADMIT Hospitalist; ATTEND Family Medicine
DX: I13.0 Hypertensive heart and chronic kidney disease with heart failure and stage 1 through stage 4 chronic kidney disease, or unspecified chronic kidney disease (principal); I50.33 Acute on chronic diastolic (congestive) heart failure; L03.115 Cellulitis of right lower limb; I74.5 Embolism and thrombosis of iliac artery; B37.0 Candidal stomatitis; I82.509 Chronic embolism and thrombosis of unspecified deep veins of unspecified lower extremity; I20.8 Other forms of angina pectoris; I70.1 Atherosclerosis of renal artery; Z86.711 Personal history of pulmonary embolism; I71.4 Abdominal aortic aneurysm, without rupture; N18.3 Chronic kidney disease, stage 3 (moderate); Z93.2 Ileostomy status; Z95.5 Presence of coronary angioplasty implant and graft; I70.91 Generalized atherosclerosis; G50.0 Trigeminal neuralgia; K21.9 Gastro-esophageal reflux disease without esophagitis; Z95.0 Presence of cardiac pacemaker; F32.9 Major depressive disorder, single episode, unspecified; I73.9 Peripheral vascular disease, unspecified; E78.5 Hyperlipidemia, unspecified; Z79.01 Long term (current) use of anticoagulants; I08.0 Rheumatic disorders of both mitral and aortic valves; Z95.828 Presence of other vascular implants and grafts; Z86.19 Personal history of other infectious and parasitic diseases

== ENCOUNTER 2017-01-23 08:05 | Inpatient (IN) | payer BC, OTHER ==
[2017-01-23] VITALS (8 sets, daily range): BP systolic 141–157; BP diastolic 86–95; PULSE 67–79; TEMP 36.7–37.1; O2SAT 93–94; Ht 157.5 cm; Wt 81.0 kg
[~2017-01-23] VITALS: Ht 157.5 cm; Wt 81.0 kg
[~2017-01-23 08:05] MED LIST changes: +ACET-176 PO; +BISA1SUP4 PR; +CEFT1INJ57 IV; +CMD5 PO; +ECRCR EXT; -EPP3/2 IM; -ERGO50002 PO; +FRS/40 PO; +FURO-85 PO; +IMDSR60 PO; -ISOS60TA25 PO; -LSX20 PO; -MCRK20 PO; -METO25TA3 PO; -MGNO400 PO; +MOML PO; -MULT-506 PO; +MULT-513 PO; +NF656 TD; +NTRSLP4 SL; -NYSS5 PO; +OXYC1TAB3 PO; -PANT1TAB48 PO; +PANT40TA PO; +POLY335019 PO; +POTA20TA16 PO; -POTTAB2 PO; -RXC5 PO; +SALI0.6510 NAE; +SODIENE PR; +TPRSR50 PO; +ULT/50 PO; -ULT50X PO; -WARF-286 PO
[2017-01-23] MEDS ORDERED: SODIUM CHLORIDE 0.9% 1000ML 250 ML IV STA (08:16)
[2017-01-23] MEDS ORDERED: NITROGLYCERIN OINT 2% 1GM PACKET EXT STA (08:16)
--- NOTE | 2017-01-23 08:31 | EMERGENCY ROOM VISIT NOTE ---
History Report prepared by Alka: Val Mtz Under the Supervision of: Dr. Nathan Stewart M.D. First contact with patient: 08:12 Chief Complaint: CHEST PAIN Stated Complaint: CHEST PAIN History of Present Illness The patient is an 87 year old female who presents to the Emergency Room with complaints of persistent chest pain that began an hour and 45 minutes ago. She currently rates her discomfort as a 3/10 in severity. Per nursing staff, the patient arrives via ALS from [facility] with chest pain. The patient reports that she was recently hospitalized for lower leg cellulitis and nursing staff states that the patient was discharged to [facility]. The patient states that she has had chest pain like this in the past and typically would use nitroglycerin for her discomfort. She states that she would typically use her home nitroglycerin 1 time per week prior to her pacemaker. The patient states that since her pacemaker she has not used her nitroglycerin as much. She states that the 1 nitroglycerin and 324 mg of Aspirin has helped to alleviate her pain today, stating that her pain went from a 9/10 in severity to a 3/10 in severity. The patient states that her pain today woke her from sleep. She denies having any pain yesterday. The patient describes the pain as a tightness. Dr. Wyatt states that the patient has a history of angina. The patient denies any diaphoresis, shortness of breath, or nausea. She states that she is on Coumadin for a history of a PE. Source of History: patient Onset: an hour and 45 minutes ago Position: chest Symptom Intensity: 3/10 Quality: other (tightness) Timing: other (persistent) Modifying Factors (Relieving): other (aspirin and nitroglycerin) Associated Symptoms: No diaphoresis, No SOB, No nausea Review of Systems See HPI for pertinent positives & negatives. A total of 10 systems reviewed and were otherwise negative. Past Medical & Surgical Medical Problems: (1) Acute on chronic diastolic (congestive) heart failure (2) Aneurysm of infrarenal abdominal aorta (3) Cellulitis of right lower extremity (4) Coronary artery disease (5) Deep vein thrombosis (6) History of DVT of lower extremity (7) Hypertension (8) PE (pulmonary embolism) (9) Ulcerative colitis (10) Unstable angina pectoris (11) Wounds, multiple open, lower extremity Surgical Problems: (1) H/O cardiac catheterization (2) H/O ileostomy (3) H/O percutaneous transluminal coronary angioplasty (4) History of lumpectomy Family History FH: cancer FH: heart disease Hypertension Social History Smoking Status: Never Smoker Alcohol Use: none Drug Use: none Marital Status: Housing Status: lives with family Occupation Status: retired Current/Historical Medications Scheduled Amlodipine Besylate (Norvasc), 5 MG PO BID Ceftriaxone Sodium (Rocephin), 1 GM IV DAILY Clopidogrel (Plavix), 75 MG PO DAILY Docusate Sodium (Docusate Sodium), 100 MG PO BID Ferrous Sulfate (Ferrous Sulfate), 325 MG PO BIDM Furosemide (Lasix), 40 MG PO DAILY Furosemide (Lasix), 20 MG PO q1500 Gabapentin (Gabapentin), 600 MG PO TID Isosorbide Mononitrate (Isosorbide Mononitrate ER), 120 MG PO QAM Lidocaine (Lidoderm Patch 5%), 1 PATCH TD ONAMOFFPM Metoprolol Succinate (Metoprolol Succinate ER), 50 MG PO DAILY Multivitamins/Minerals (Mvi With Minerals), 1 TAB PO DAILY Oxcarbazepine (Trileptal), 150 MG PO QID Pantoprazole (Protonix), 40 MG PO DAILYBB Potassium Ext Rel (Klor-Con), 20 MEQ PO BID Ranolazine (Ranexa), 500 MG PO BID Warfarin Sod (Coumadin), 5 MG PO DAILY@16 Scheduled PRN Acetaminophen (Apap Extra Strength), 500 MG PO Q4 PRN for Pain or Fever Eucerin (Hydrocerin), 1 APPLN EXT BID PRN for DRYNESS Nitroglycerin (Nitrostat), 0.4 MG SL UD PRN for Chest Pain Oxycodone Ir (Roxicodone Ir), 1 TAB PO Q4H PRN for mod-svr pain Polyethylene Glycol 3350 (Miralax), 17 GM PO DAILY PRN for Constipation Tramadol Hcl (Ultram), 50 MG PO Q4H PRN for Moderate Pain Allergies Coded Allergies: Sodium Lauryl Sulfate (Verified Allergy, Intermediate, HIVES & WELTS, 11/10) BEE STING (Verified Allergy, Unknown, ANAPHYLAXIS, 11/11/15) Physical Exam Vital Signs Date Time Temp Pulse Resp B/P (MAP) Pulse Ox O2 Delivery O2 Flow Rate FiO2 01/23/17 12:03 67 01/23/17 11:55 69 18 142/82 94 Room Air 01/23/17 11:40 94 Room Air 01/23/17 10:49 68 18 124/76 95 Room Air 01/23/17 09:47 103 16 108/78 96 Room Air 01/23/17 08:39 66 20 121/76 92 Room Air 01/23/17 08:18 65 01/23/17 08:10 92 Room Air 01/23/17 08:06 93 Room Air 01/23/17 08:06 36.6 73 20 115/75 93 Room Air Physical Exam GENERAL: Patient is in no acute distress. HEENT: No acute trauma, normocephalic atraumatic, mucous membranes moist, no nasal congestion, no scleral icterus. NECK: No stridor, no adenopathy, no meningismus, trachea is midline. LUNGS: Occasional crackles at both bases, no wheezing, breath sounds are equal. HEART: 3/6 systolic murmur with a regular rate and rhythm. ABDOMEN: Soft, nontender, bowel sounds positive, no hernias, no peritonitis. EXTREMITIES: Right leg is swollen with erythema with a dressing, consistent with cellulitis. No cyanosis, full range of motion of all the joints without pain or difficulty, no signs for acute trauma. NEUROLOGIC: Oriented x 3, no acute motor or sensory deficits, no focal weakness. SKIN: No rash, no jaundice, no diaphoresis. Medical Decision & Procedures ER Provider Diagnostic Interpretation: X-ray results as stated below per interpretation by me and the radiologist: CHEST ONE VIEW PORTABLE CLINICAL HISTORY: 87 years-old Female presenting with CHEST PAIN. TECHNIQUE: Portable upright AP view of the chest was obtained. COMPARISON: 01/12/2017. FINDINGS: Right-sided pacer with leads to the right 8 Saucedo right ventricular apex. Cardiac silhouette remains enlarged. Slight interval decrease in perihilar opacities and vascular indistinctness. Persistent although decreased bibasilar opacities and significant decrease in bilateral pleural effusions. No pneumothorax. Right shoulder arthroplasty and left shoulder calcification unchanged. Upper abdomen normal. IMPRESSION: 1. Cardiomegaly with slight decrease in pulmonary edema and pleural effusions. Electronically signed by: David Land M.D. 01/23/2017 8:55 AM Dictated Date/Time: 01/23/2017 8:53 AM Laboratory Results 01/23/17 08:51 01/23/17 08:51 Test 01/23/17 08:51 Red Blood Count 3.51 M/uL (4.2-5.4) Mean Corpuscular Volume 88.9 fL (80-100) Mean Corpuscular Hemoglobin 28.8 pg (25-34) Mean Corpuscular Hemoglobin Concent 32.4 g/dl (32-36) RDW Standard Deviation 53.1 fL (36.4-46.3) RDW Coefficient of Variation 16.3 % (11.5-14.5) Mean Platelet Volume 9.5 fL (7.4-10.4) Prothrombin Time 28.7 SECONDS (9.0-12.0) Prothromb Time International Ratio 2.6 (0.9-1.1) Activated Partial Thromboplast Time 33.1 SECONDS (21.0-31.0) Partial Thromboplastin Ratio 1.3 Anion Gap 7.0 mmol/L (3-11) Estimated GFR () 61.7 Estimated GFR (Non- 53.3 BUN/Creatinine Ratio 22.4 (10-20) Calcium Level 9.1 mg/dl (8.5-10.1) Magnesium Level 1.9 mg/dl (1.8-2.4) Total Bilirubin 0.3 mg/dl (0.2-1) Aspartate Amino Transf (AST/SGOT) 25 U/L (15-37) Alanine Aminotransferase (ALT/SGPT) 18 U/L (12-78) Alkaline Phosphatase 99 U/L (45-117) Total Creatine Kinase 39 U/L (26-192) Creatine Kinase MB 1.3 ng/ml (0.5-3.6) Creatine Kinase MB Ratio 3.3 (0-3.0) Troponin I 0.038 ng/ml (0-0.045) Pro-B-Type Natriuretic Peptide 3911 pg/ml (0-1800) Total Protein 7.2 gm/dl (6.4-8.2) Albumin 2.5 gm/dl (3.4-5.0) Globulin 4.7 gm/dl (2.5-4.0) Albumin/Globulin Ratio 0.5 (0.9-2) Laboratory results reviewed by me. Medications Administered Medications (Trade) Dose Ordered Sig/Darrick Route Start Time Stop Time Status Last Admin Dose Admin Sodium Chloride 250 ml @ 999 mls/hr Q16M STAT IV 01/23/17 08:16 01/23/17 08:31 DC 01/23/17 08:29 999 MLS/HR Nitroglycerin (Nitroglycerin 2% Oint) 0.5 inch NOW STAT EXT 01/23/17 08:16 01/23/17 08:20 DC 01/23/17 08:35 0.5 INCH Oxcarbazepine (Trileptal Tab) 150 mg NOW STAT PO 01/23/17 09:55 01/23/17 09:57 DC 01/23/17 10:20 150 MG Acetaminophen (Tylenol Tab) 650 mg NOW STAT PO 01/23/17 11:19 01/23/17 11:28 DC 01/23/17 11:54 650 MG ECG Indication: chest pain Rate (beats per minute): 76 Rhythm: other (atrial pacemaker) Findings: RBBB, other (possible old lateral infarct) Change: EKG from [facility] showed ventricular pacing with a rate of 101 beats per minute. ED Course 0813: The patient was evaluated in room A12B. A complete history and physical exam was performed. 0816: Ordered Nitroglycerin 0.5 inch EXT, Sodium Chloride 250 ml @ 999 mls/hr IV. 0951: I discussed the patients case with Dr. Hong [facility]. He is going to evaluate the patient for further treatment. 0953: I reevaluated the patient and she is resting comfortably. I discussed the exam findings with her and I discussed the treatment plan. She verbalized complete understanding and agreement. She is ready to go home. 0955: Ordered Trileptal Tab 150 mg PO. Medical Decision The patient is an 87 year old female who presents to the ED with complaints of chest pain. Differential diagnoses considered include Angina, MT, musculoskeletal pain, PE, pneumonia, pneumothorax, heart failure. The patient presents with anterior chest pain. She has had relief with nitroglycerin. She has a history of angina. There is no concerning leukocytosis. There is a mild anemia present but the value is not critical. EKG shows an atrial pacemaker with a right bundle branch block, no acute ischemia. Cardiac enzyme testing times one is not consistent with acute cardiac injury. Chest film does not show concerning heart failure, no pneumothorax or pneumonia. No significant electrolyte abnormality or kidney failure. There is no hepatitis. INR is elevated consistent with fluid overload. The patient had already received oral aspirin. She was given nitro paste, she received a small amount of IV saline. She was given oral Trileptal for her facial pain-she takes this on a regular basis as needed. The patient is comfortable currently. I do think a hospital stay for further cardiac workup is warranted. I spoke with the patient and case management. The on-call hospitalist was consulted. Medication Reconcilliation Current Medication List: was personally reviewed by me Blood Pressure Screening Patient's blood pressure: Normal blood pressure Blood pressure disposition: Did not require urgent referral Consults Time Called: [phone] Consulting Physician: SHANAE Jaramillo Returned Call: [phone] I discussed the patients case with SHANAE Jaramillo. He is going to evaluate the patient for further treatment. Impression Primary Impression: Precordial chest pain Scribe Attestation The scribe's documentation has been prepared under my direction and personally reviewed by me in its entirety. I confirm that the note above accurately reflects all work, treatment, procedures, and medical decision making performed by me. Departure Information Dispostion Being Evaluated By Hospitalist Referrals Julius Zamora M.D. (PCP)
--- NOTE | 2017-01-23 08:56 | DIAGNOSTIC IMAGING REPORT ---
CHEST ONE VIEW PORTABLE CLINICAL HISTORY: 87 years-old Female presenting with CHEST PAIN. TECHNIQUE: Portable upright AP view of the chest was obtained. COMPARISON: 01/12/2017. FINDINGS: Right-sided pacer with leads to the right 8 Saucedo right ventricular apex. Cardiac silhouette remains enlarged. Slight interval decrease in perihilar opacities and vascular indistinctness. Persistent although decreased bibasilar opacities and significant decrease in bilateral pleural effusions. No pneumothorax. Right shoulder arthroplasty and left shoulder calcification unchanged. Upper abdomen normal. IMPRESSION: 1. Cardiomegaly with slight decrease in pulmonary edema and pleural effusions. Electronically signed by: David Land M.D. 01/23/2017 8:55 AM Dictated Date/Time: 01/23/2017 8:53 AM
[2017-01-23 09:01] LABS: HEMATOCRIT 31.2 % (37-47); MEAN CELL VOLUME 88.9 fL (80-100); MEAN CORPUSCULAR HEMOGLOBIN 28.8 pg (25-34); MEAN CORPUSCULAR HGB CONC 32.4 g/dl (32-36); MEAN PLATELET VOLUME 9.5 fL (7.4-10.4); PLATELET COUNT 208 K/uL (130-400); RED BLOOD COUNT 3.51 M/uL (4.2-5.4); WHITE BLOOD COUNT 6.07 K/uL (4.8-10.8)
[2017-01-23 09:10] LABS: INR 2.6 (0.9-1.1); PARTIAL THROMBOPLASTIN RATIO 1.3; PROTHROMBIN TIME (PATIENT) 28.7 SECONDS (9.0-12.0)
[2017-01-23] MEDS ORDERED: DOCU100C31 PO (09:22)
[2017-01-23 09:29] LABS: ALT/SGPT 18 U/L (12-78); BLOOD UREA NITROGEN 22 mg/dl (7-18); BUN/CREATININE RATIO 22.4 (10-20); CALCIUM 9.1 mg/dl (8.5-10.1); CARBON DIOXIDE 26 mmol/L (21-32); CHLORIDE 105 mmol/L (98-107); CREATININE 0.97 mg/dl (0.60-1.20); GLUCOSE 97 mg/dl (70-99); MAGNESIUM 1.9 mg/dl (1.8-2.4); POTASSIUM 3.8 mmol/L (3.5-5.1); SODIUM 138 mmol/L (136-145)
[2017-01-23 09:34] LABS: ALB/GLOB RATIO 0.5 (0.9-2); ALKALINE PHOSPHATASE 99 U/L (45-117); AST/SGOT 25 U/L (15-37); CKMB/CK RATIO 3.3 (0-3.0)
[2017-01-23] MEDS ORDERED: OXCARBAZEPINE 150 MG TAB PO STA (09:55)
--- NOTE | 2017-01-23 11:17 | History and Physical ---
History & Physical Date & Time of Service: Jan 23, 2017 at 11:05 Chief Complaint: Chest Pain Primary Care Physician: Julius Zamora M.D. History of Present Illness Source: patient, hospital records Ms. Ely presents today for substernal chest pain at rest this morning when she woke up. No associated shortness of breath, nausea, vomiting, diaphoresis or radiation of pain. She has experienced this pain while gardening but never at rest. Her pain was relieved with one nitro. She was recently here for cellulitis of the right lower extremity for which she continues to see the wound clinic and receive IV rocephin. She last saw them yesterday. She denies any recent illnesses, no sick contacts. Past Medical/Surgical History Medical Problems: (1) Coronary artery disease Status: Chronic (2) Deep vein thrombosis Status: Resolved (3) History of DVT of lower extremity Status: Chronic (4) Hypertension Status: Chronic (5) PE (pulmonary embolism) Status: Resolved (6) Ulcerative colitis Status: Resolved Surgical Problems: (1) H/O cardiac catheterization Status: Resolved (2) H/O ileostomy Status: Chronic (3) H/O percutaneous transluminal coronary angioplasty Status: Resolved (4) History of lumpectomy Status: Resolved Family History FH: cancer FH: heart disease Hypertension Social History Smoking Status: Never Smoker Alcohol Use: none Drug Use: none Marital Status: Housing status: lives with family (grandson) Occupational Status: retired Immunizations History of Influenza Vaccine: Yes Influenza Vaccine Date: Jan 01, 2013 History of Tetanus Vaccine?: UTD History of Pneumococcal: Yes Pneumococcal Date: May 03, 2011 History of Hepatitis B Vaccine: No Multi-Drug Resistant Organisms History of MDRO: No Allergies Coded Allergies: Sodium Lauryl Sulfate (Verified Allergy, Intermediate, HIVES & WELTS, 11/10) BEE STING (Verified Allergy, Unknown, ANAPHYLAXIS, 11/11/15) Home Medications Scheduled Amlodipine Besylate (Norvasc), 5 MG PO BID Ceftriaxone Sodium (Rocephin), 1 GM IV DAILY Clopidogrel (Plavix), 75 MG PO DAILY Docusate Sodium (Docusate Sodium), 100 MG PO BID Ferrous Sulfate (Ferrous Sulfate), 325 MG PO BIDM Furosemide (Lasix), 40 MG PO DAILY Furosemide (Lasix), 20 MG PO q1500 Gabapentin (Gabapentin), 600 MG PO TID Isosorbide Mononitrate (Isosorbide Mononitrate ER), 120 MG PO QAM Lidocaine (Lidoderm Patch 5%), 1 PATCH TD ONAMOFFPM Metoprolol Succinate (Metoprolol Succinate ER), 50 MG PO DAILY Multivitamins/Minerals (Mvi With Minerals), 1 TAB PO DAILY Oxcarbazepine (Trileptal), 150 MG PO QID Pantoprazole (Protonix), 40 MG PO DAILYBB Potassium Ext Rel (Klor-Con), 20 MEQ PO BID Ranolazine (Ranexa), 500 MG PO BID Warfarin Sod (Coumadin), 5 MG PO DAILY@16 Scheduled PRN Acetaminophen (Apap Extra Strength), 500 MG PO Q4 PRN for Pain or Fever Eucerin (Hydrocerin), 1 APPLN EXT BID PRN for DRYNESS Nitroglycerin (Nitrostat), 0.4 MG SL UD PRN for Chest Pain Oxycodone Ir (Roxicodone Ir), 1 TAB PO Q4H PRN for mod-svr pain Polyethylene Glycol 3350 (Miralax), 17 GM PO DAILY PRN for Constipation Tramadol Hcl (Ultram), 50 MG PO Q4H PRN for Moderate Pain Review of Systems Constitutional: No fever, No chills, No sweats Respiratory: No cough, No sputum, No shortness of breath Cardiovascular: + chest pain, + edema (right lower extremity around cellulitis) , No palpitations Abdomen: No pain, No nausea, No vomiting Physical Exam Vital Signs Date Time Temp Pulse Resp B/P (MAP) Pulse Ox O2 Delivery O2 Flow Rate FiO2 01/23/17 10:49 68 18 124/76 95 Room Air 01/23/17 09:47 103 16 108/78 96 Room Air 01/23/17 08:39 66 20 121/76 92 Room Air 01/23/17 08:18 65 01/23/17 08:10 92 Room Air 01/23/17 08:06 93 Room Air 01/23/17 08:06 36.6 73 20 115/75 93 Room Air General: no distress Eyes: normal inspection, PERLL Respiratory: chest non tender, clear to auscultation, normal breath sounds, no respiratory distress, no accessory muscle use Cardiac: regular rate and rhythm, no rub or gallop, left and right second intercostal space at sternal border 3/6, no edema, no jvd GI/: ileostomy, active bowel sounds, no abd pain or tenderness, soft, non distended Extremities: normal range of motion, normal strength, non tender Neuro/Psych: alert and oriented x 3, normal mood and affect Skin: normal color, dry, left leg with three areas of eschar and slough with reddened borders, erythematous skin from uribe to foot. Diagnostics Laboratory Results Results Past 24 Hours Test 01/23/17 08:51 Range/Units White Blood Count 6.07 4.8-10.8 K/uL Red Blood Count 3.51 4.2-5.4 M/uL Hemoglobin 10.1 12.0-16.0 g/dL Hematocrit 31.2 37-47 % Mean Corpuscular Volume 88.9 80-100 fL Mean Corpuscular Hemoglobin 28.8 25-34 pg Mean Corpuscular Hemoglobin Concent 32.4 32-36 g/dl RDW Standard Deviation 53.1 36.4-46.3 fL RDW Coefficient of Variation 16.3 11.5-14.5 % Platelet Count 208 130-400 K/uL Mean Platelet Volume 9.5 7.4-10.4 fL Prothrombin Time 28.7 9.0-12.0 SECONDS Prothromb Time International Ratio 2.6 0.9-1.1 Activated Partial Thromboplast Time 33.1 21.0-31.0 SECONDS Partial Thromboplastin Ratio 1.3 Sodium Level 138 136-145 mmol/L Potassium Level 3.8 3.5-5.1 mmol/L Chloride Level 105 98-107 mmol/L Carbon Dioxide Level 26 21-32 mmol/L Anion Gap 7.0 3-11 mmol/L Blood Urea Nitrogen 22 7-18 mg/dl Creatinine 0.97 0.60-1.20 mg/dl Estimated GFR () 61.7 Estimated GFR (Non- 53.3 BUN/Creatinine Ratio 22.4 10-20 Random Glucose 97 70-99 mg/dl Calcium Level 9.1 8.5-10.1 mg/dl Magnesium Level 1.9 1.8-2.4 mg/dl Total Bilirubin 0.3 0.2-1 mg/dl Aspartate Amino Transf (AST/SGOT) 25 15-37 U/L Alanine Aminotransferase (ALT/SGPT) 18 12-78 U/L Alkaline Phosphatase 99 45-117 U/L Total Creatine Kinase 39 26-192 U/L Creatine Kinase MB 1.3 0.5-3.6 ng/ml Creatine Kinase MB Ratio 3.3 0-3.0 Troponin I 0.038 0-0.045 ng/ml Total Protein 7.2 6.4-8.2 gm/dl Albumin 2.5 3.4-5.0 gm/dl Globulin 4.7 2.5-4.0 gm/dl Albumin/Globulin Ratio 0.5 0.9-2 Diagnostic Radiology Chest x ray IMPRESSION: 1. Cardiomegaly with slight decrease in pulmonary edema and pleural effusions. EKG Atrial-paced rhythm with prolonged AV conduction with Premature atrial complexes Right bundle branch block Left anterior fascicular block Bifascicular block Cannot rule out Septal infarct (cited on or before 23-DEC-2016) Lateral infarct (cited on or before 23-DEC-2016) Abnormal ECG When compared with ECG of 14-JAN-2017 06:28, Premature atrial complexes are now Present Impression Assessment and Plan Ms. Ely presents today for substernal chest pain at rest this morning when she woke up. No associated shortness of breath, nausea, vomiting, diaphoresis or radiation of pain. She has experienced this pain while gardening but never at rest. Her pain was relieved with one nitro. She was recently here for cellulitis of the right lower extremity for which she continues to see the wound clinic and receive IV rocephin. She last saw them yesterday. Unstable Angina/CAD - Relieved with nitro - admit observation on telemetry - serial cardiac enzymes - continue clopidogrel, isosorbide mononitrate - continue prn nitro - EKG with chest pain - Echo - At this point she is unlikely to be a heart cath candidate given her ongoing cellulitis that is still being treated with IV antibiotics as well as the quick resolution of her chest pain with one nitro this morning and lack of changes on EKG. Will give her an AHA diet. Cellulitis of the right lower extremity - continue daily Rocephin - will hold off on wound care consult for now as she saw wound care yesterday, if she needs to stay inpatient another night we will consult them then. Pleural effusion on X ray - BNP - continue home dose of lasix Hx of DVT/ PE -Hold coumadin for today in case intervention is necessary. INR is 2.6. Will resume tomorrow if symptoms still gone - SCDs HTN - continue amlodipine and metoprolol Trigeminal neuralgia - continue oxycarbazepine Resuscitation status - Full resuscitation DVT prophylaxis - SCDs, therapeutic INR Level of Care Telemetry Advanced Directives Existing Advance Directive: Yes Existing Living Will: Yes Existing Power of Enterprise Security Architect: Yes (daughter Elizabeth Patel) Existing Health Care Proxy: No Resuscitation Status FULL RESUSCITATION (no heroic measures) VTE Prophylaxis VTE Risk Assessment Done? Y/N: Yes Risk Level: High Given or contraindicated: Warfarin (Coumadin) Reviewed: Pt Seen/Exam by Me History Pt is no longer having chest pain on my exam earlier this AM. She states that the chest pain she had was the same as her usual, but more concerning to her due to the fact that it happened at rest, which is never the case. It resolved with a single nitro. Pt is f/u with [facility] for her recent cellulitis. Ongoing IV abx use. She was just seen by [facility] and reports that they feel her cellulitis/ulceration is doing well. Agree with HPI/ROS as noted. General Appearance: WD/WN, no apparent distress Eye Exam: bilateral eye normal inspection, bilateral eye EOMI Respiratory: normal breath sounds, no respiratory distress Cardiovascular: normal peripheral pulses, regular rate, rhythm Gastrointestinal: non tender, soft Extremities: non-tender, no pedal edema Neurologic/Psychiatric: alert, normal mood/affect, oriented x 3 Skin Characteristics: warm/dry, other (R LE with bandage that is clean and dry , chronic appearing skin discoloration) Assessment/Plan Agree with plan as outlined above Chest pain, likely angina given hx of same and resolved s/p nitro x1 Trop neg, serials pending Follows with Dr. Clark if cards is needed Cath seems less likely at this time given recent cellulitis/ulceration and ongoing need for IV abx CBC, PRP WNL
[2017-01-23] MEDS ORDERED: ACETAMINOPHEN 325 MG TAB PO STA (11:19)
[2017-01-23] MEDS ORDERED: ONDANSETRON INJ 2 MG/ML 2 ML VIAL IV PRN (11:45)
[2017-01-23] MEDS ORDERED: EUCERIN CR 120 GM JAR EXT PRN (11:45)
[2017-01-23] MEDS ORDERED: POLYETHYLENE (MIRALAX) 17 GM PACK PO PRN (11:45)
[2017-01-23] MEDS ORDERED: NON-FORMULARY MEDICATION (Polyethylene Glycol 3350 (Miralax) 17 GM) PO PRN (11:45)
[2017-01-23] MEDS ORDERED: OXYCODONE HCL IR 5 MG TAB (IMMEDIATE RELEASE) PO PRN (11:45)
[2017-01-23] MEDS ORDERED: IV FLUIDS COMPLETED PRN (12:15)
[2017-01-23] MEDS ORDERED: INFLUENZA ADMINISTRATION CHARGE ONE (12:45)
[2017-01-23] MEDS ORDERED: INFLUENZA VACCINE HIGH DOSE 65+ 0.5 ML SYR IM. ONE (12:45)
[2017-01-23] MEDS: GABAPENTIN 300 MG CAP PO SCH ×2 (15:53→20:47)
[2017-01-23] MEDS: FERROUS SULFATE 325 MG TAB PO SCH (15:53)
[2017-01-23] MEDS: OXCARBAZEPINE 150 MG TAB PO SCH ×3 (15:53→23:45)
[2017-01-23] MEDS ORDERED: CEFTRIAXONE SOD INJ 1000 MG in DEXTROSE 5% 50ML IV SCH (18:00)
[2017-01-23] MEDS ORDERED: CEFTRIAXONE SOD 1 GM VIAL IV SCH (18:00)
[2017-01-23 18:34] LABS: CKMB/CK RATIO 2.4 (0-3.0)
[2017-01-23] MEDS: TRAMADOL HCL 50 MG TAB PO PRN (20:46)
[2017-01-23] MEDS: DOCUSATE SODIUM 100 MG CAP PO SCH (20:47)
[2017-01-23] MEDS: AMLODIPINE BESYLATE 5 MG TAB PO SCH (20:47)
[2017-01-23] MEDS: RANOLAZINE 500 MG ER TAB PO SCH (20:47)
[2017-01-23] MEDS: POTASSIUM CHLORIDE 20 MEQ TABCR PO SCH (20:48)
[2017-01-23 23:51] LABS: CKMB/CK RATIO 3.7 (0-3.0)
[2017-01-24] VITALS (7 sets, daily range): BP systolic 127–160; BP diastolic 71–109; PULSE 63–104; TEMP 36.5–36.8; O2SAT 88–95
[2017-01-24] MEDS: TRAMADOL HCL 50 MG TAB PO PRN ×3 (03:52→19:43)
[2017-01-24] MEDS: NITROGLYCERIN 0.4 MG SL PER TAB CHARGE SL PRN ×2 (04:42→04:52)
[2017-01-24] MEDS ORDERED: SIMETHICONE 80 MG CHEW PO PRN (05:15)
[2017-01-24 06:07] LABS: CKMB/CK RATIO 4.7 (0-3.0)
[2017-01-24] MEDS: PANTOprazole SOD 40 MG TAB PO SCH (06:39)
[2017-01-24] MEDS: NITROGLYCERIN OINT 2% 1GM PACKET EXT SCH ×4 (06:39→23:46)
[2017-01-24] MEDS: ACETAMINOPHEN 325 MG TAB PO PRN (06:45)
[2017-01-24] MEDS: OXCARBAZEPINE 150 MG TAB PO SCH ×4 (07:31→20:42)
[2017-01-24] MEDS: ISOSORBIDE MONONITRATE 60 MG TABCR PO SCH (07:31)
[2017-01-24] MEDS: CLOPIDOGREL BISULFATE 75 MG TAB PO SCH (07:31)
[2017-01-24] MEDS: GABAPENTIN 300 MG CAP PO SCH ×3 (07:31→20:42)
[2017-01-24] MEDS: RANOLAZINE 500 MG ER TAB PO SCH ×2 (07:32→20:42)
[2017-01-24] MEDS: POTASSIUM CHLORIDE 20 MEQ TABCR PO SCH ×2 (07:32→20:42)
[2017-01-24] MEDS: CEROVITE ADV FORMULA TAB PO SCH (07:32)
[2017-01-24] MEDS: METOPROLOL SUCC 50MG EXT REL TAB PO SCH (07:32)
[2017-01-24] MEDS: FUROSEMIDE 40 MG TAB PO SCH (07:33)
[2017-01-24] MEDS: FERROUS SULFATE 325 MG TAB PO SCH ×2 (07:33→17:23)
[2017-01-24] MEDS: LIDODERM (LIDOCAINE) PATCH 5% TD SCH (07:33)
[2017-01-24] MEDS: DOCUSATE SODIUM 100 MG CAP PO SCH ×2 (07:33→20:38)
[2017-01-24] MEDS: AMLODIPINE BESYLATE 5 MG TAB PO SCH ×2 (07:33→20:42)
[2017-01-24] MEDS ORDERED: FUROSEMIDE 40 MG TAB PO ONE (09:00)
--- NOTE | 2017-01-24 09:06 | Hospitalist Progress Note ---
Hospitalist Progress Note Date of Service Jan 24, 2017. Subjective Pt evaluation today including: conversation w/ patient, physical exam, chart review, lab review Voiding: no voiding problems Ms. Ely is not currently having chest pain but did have some over the night. She feels like it is more indigestion than her heart however she did note that wearing oxygen seemed to help. Respiratory: No cough, No sputum, No shortness of breath Cardiovascular: No chest pain, No palpitations Abdomen: No pain, No nausea, No vomiting, No diarrhea Female : No dysuria All Other Systems: Reviewed and Negative Medications Medications (Trade) Dose Ordered Sig/Darrick Route Start Time Stop Time Status Last Admin Dose Admin Oxcarbazepine (Trileptal Tab) 150 mg NOW STAT PO 01/23/17 09:55 01/23/17 09:57 DC 01/23/17 10:20 150 MG Acetaminophen (Tylenol Tab) 650 mg NOW STAT PO 01/23/17 11:19 01/23/17 11:28 DC 01/23/17 11:54 650 MG Acetaminophen (Tylenol Tab) 650 mg Q4H PRN PO 01/23/17 11:45 02/22/17 11:44 01/24/17 06:45 650 MG Nitroglycerin (Nitrostat Tab) 0.4 mg UD PRN SL 01/23/17 11:45 02/22/17 11:44 01/24/17 04:52 0.4 MG Amlodipine Besylate (Norvasc Tab) 5 mg BID PO 01/23/17 21:00 02/22/17 20:59 01/24/17 07:33 5 MG Clopidogrel Bisulfate (plAVix TAB) 75 mg DAILY PO 01/24/17 09:00 02/23/17 08:59 01/24/17 07:31 75 MG Docusate Sodium (coLACE CAP) 100 mg BID PO 01/23/17 21:00 02/22/17 20:59 01/24/17 07:33 100 MG Ferrous Sulfate (Feosol Tab) 325 mg BIDM PO 01/23/17 16:45 02/22/17 17:59 01/24/17 07:33 325 MG Furosemide (Lasix Tab) 40 mg DAILY PO 01/24/17 09:00 02/23/17 08:59 01/24/17 07:33 40 MG Gabapentin (Neurontin Cap) 600 mg TID PO 01/23/17 14:00 02/22/17 13:59 01/24/17 07:31 600 MG Isosorbide Mononitrate (Imdur Ext Rel Tab) 120 mg QAM PO 01/24/17 09:00 02/23/17 08:59 01/24/17 07:31 120 MG Metoprolol Succinate (Toprol Xl Tab) 50 mg DAILY PO 01/24/17 09:00 02/23/17 08:59 01/24/17 07:32 50 MG Multivitamins/ Minerals (Multivitamin W/ Minerals Tab) 1 tab DAILY PO 01/24/17 09:00 02/23/17 08:59 01/24/17 07:32 1 TAB Oxcarbazepine (Trileptal Tab) 150 mg QID PO 01/23/17 13:00 02/22/17 12:59 01/24/17 07:31 150 MG Pantoprazole Sodium (Protonix Tab) 40 mg DAILYBB PO 01/24/17 06:00 02/23/17 06:59 01/24/17 06:39 40 MG Potassium Chloride (Klor-Con Tab) 20 meq BID PO 01/23/17 21:00 02/22/17 20:59 01/24/17 07:32 20 MEQ Tramadol HCl (Ultram Tab) 50 mg Q4H PRN PO 01/23/17 11:45 02/22/17 11:44 01/24/17 03:52 50 MG Ranolazine (Ranexa ER Tab) 500 mg BID PO 01/23/17 21:00 02/22/17 20:59 01/24/17 07:32 500 MG Miscellaneous (Remove Lidoderm Patch) 1 ea DAILY@21 N/A 01/23/17 21:00 02/22/17 20:59 01/23/17 23:08 1 EA Ceftriaxone Sodium 1000 mg/ Dextrose 60 ml @ 120 mls/hr Q24H IV 01/23/17 18:00 01/29/17 17:59 01/23/17 17:44 120 MLS/HR Simethicone (Mylicon Chew Tab) 80 mg Q6H PRN PO 01/24/17 05:15 02/23/17 05:14 01/24/17 06:39 80 MG Nitroglycerin (Nitroglycerin 2% Oint) 1 inch Q6H EXT 01/24/17 06:00 02/23/17 05:59 01/24/17 07:33 1 INCH Objective Vital Signs Date Time Temp Pulse Resp B/P (MAP) Pulse Ox O2 Delivery O2 Flow Rate FiO2 01/24/17 08:28 36.8 69 16 160/109 (126) 95 Room Air 01/24/17 08:00 Room Air 01/24/17 04:30 88 Room Air 01/24/17 04:15 36.7 104 18 143/103 (116) 91 Room Air 01/24/17 00:10 94 Room Air 01/23/17 22:50 36.8 79 18 147/95 (112) 94 Room Air 01/23/17 20:45 94 Room Air 01/23/17 19:05 37.1 67 18 141/86 (104) 94 Room Air 01/23/17 16:45 36.7 68 17 157/94 (115) 93 01/23/17 16:16 Room Air 01/23/17 14:25 93 Room Air 01/23/17 14:15 36.7 68 17 157/94 (115) 93 Room Air 01/23/17 14:04 36.7 68 17 157/94 (115) 93 Room Air 01/23/17 12:48 65 18 149/93 95 Room Air 01/23/17 12:03 67 01/23/17 11:55 69 18 142/82 94 Room Air 01/23/17 11:40 94 Room Air 01/23/17 10:49 68 18 124/76 95 Room Air 01/23/17 09:47 103 16 108/78 96 Room Air Physical Exam Notes: General: no distress Eyes: normal inspection, PERLL Respiratory: chest non tender, clear to auscultation, normal breath sounds, no respiratory distress, no accessory muscle use Cardiac: regular rate and rhythm, no rub or gallop, 2/4 holosystolic murmur, no edema, no jvd GI/: active bowel sounds, no abd pain or tenderness, soft, non distended Extremities: normal range of motion, normal strength, non tender Neuro/Psych: alert and oriented x 3, normal mood and affect Skin: normal color, dry Laboratory Results Last 24 Hours Test 01/23/17 17:37 01/23/17 23:05 01/24/17 05:24 Total Creatine Kinase 54 U/L 38 U/L 38 U/L Creatine Kinase MB 1.3 ng/ml 1.4 ng/ml 1.8 ng/ml Creatine Kinase MB Ratio 2.4 3.7 4.7 Troponin I 0.041 ng/ml 0.040 ng/ml 0.033 ng/ml Chemistry Specimen Hemolysis Assessment and Plan Ms. Ely presents today for substernal chest pain at rest this morning when she woke up. No associated shortness of breath, nausea, vomiting, diaphoresis or radiation of pain. She has experienced this pain while gardening but never at rest. Her pain was relieved with one nitro. She was recently here for cellulitis of the right lower extremity for which she continues to see the wound clinic and receive IV rocephin. She last saw them yesterday. Unstable Angina/CAD - Relieved with nitro - serial cardiac enzymes - continue clopidogrel, isosorbide mononitrate bid per cardiology recommendation - continue prn nitro - EKG with chest pain - consult cardiology Cellulitis of the right lower extremity - continue daily Rocephin - Wound care consult. Pleural effusion on X ray - Fluid overload may be contributing to chest pain due to some demand ischemia - BNP - elevated - continue home dose of lasix - extra dose of po lasix this morning Hx of DVT/ PE - Restart coumadin - SCDs HTN - continue amlodipine and metoprolol Trigeminal neuralgia - continue oxycarbazepine Disposition - Ms. Ely came here from [facility] but per case management she may not meet criteria to return to . Patient does not want to be placed at a SNF. She will be evaluated by PT/OT and if it is safe she may be able to go home with home health Resuscitation status - Full resuscitation DVT prophylaxis - SCDs, therapeutic INR
[2017-01-24] MEDS ORDERED: PERFLUTREN LIPID MICROSPHERE (DEFINITY) IV ONE (09:41)
--- NOTE | 2017-01-24 10:34 | CARDIOLOGY CONSULTATION ---
DATE OF CONSULTATION: 01/24/2017 REQUESTING PHYSICIAN: KETTY Vasquez SACK KEEPER: Rafael Clark DO of [facility]. REASON FOR CONSULTATION: Known severe coronary artery disease with worsening anginal symptoms. Dear Ms. Cueva, It was pleasure to see Paige today in consultation with regards to her ongoing chest discomfort, for which she required 2 sublingual nitroglycerin yesterday and again this morning, required additional nitroglycerin. As you know, she is a very pleasant, but extremely complex 87-year-old female who has severe coronary artery disease along with a large abdominal aortic aneurysm, measuring 6.1 x 5.8 cm. She has had chronic stable angina usually with activity. She describes before her episode of cellulitis being able to work in the garden without any anginal symptoms. Normally, her angina is relieved by 1 or 2 sublingual nitroglycerin tablets. She describes it as a central chest tightness. There was no associated shortness of breath with it. She describes it also as a gas bubble and the last 2 days, it occurred in the morning before her a.m. medications. She has had multiple admissions now for a cellulitis of her lower extremities and she describes 9/10 discomfort this morning. She is on IV Rocephin and has been followed by wound clinic. She notes it does not seem to be getting any better at this point and she was actually tearful given the extent of her discomfort. She denies any lightheadedness, dizziness, presyncope or syncope. She does have some swelling of the area with the cellulitis, but denies any swelling of the other leg. She has swelling of her right leg with cellulitis, but none of the left. She denies any bleeding, bruising, dark stools or black stools. She is lying flat in bed and denies any significant shortness of breath. She denies a cough, fevers, chills, or sweats. Unfortunately, she is tearful given the extent of her discomfort. The rest of review of systems otherwise negative. PAST MEDICAL HISTORY: 1. Large rectus sheath hematoma in May 2012 secondary to dual antiplatelet therapy while on IV heparin. 2. Chronic angina. 3. Coronary artery disease, status post angioplasty and stenting to the proximal RCA and the bifurcation of the PDA and the posterolateral branch in June 2014. 4. Subtotal occlusion of the mid LAD with a large collateral branch from the distal PDA supplying the rest of the LAD territory. 5. High grade disease involving D1, D2 and S1, all small vessels with diffuse and severe proximal disease for medical therapy. 6. Moderate pulmonary hypertension. 7. Diastolic dysfunction and chronic diastolic heart failure. 8. Ulcerative colitis, status post ileostomy. 9. History of deep venous thrombosis and pulmonary embolism in 1998, on chronic Coumadin anticoagulation. 10. Osteoporosis. 11. Trigeminal neuralgia. 12. History of TIA. 13. History of hyponatremia secondary to medications. 14. Abdominal aortic aneurysm, measuring 6.1 x 5.8 cm. 15. History of extensive deep venous thrombosis in April 2012. 16. Status post IVC filter. 17. Status post dual chamber pacemaker secondary to the need for beta blockers as an antianginal and underlying bradycardia, Biotronik, placed in August 2016. 18. Repeat cardiac catheterization in AUGUST 2016. Patent stents in the right coronary artery involving a very large dominant RCA. The LAD was occluded after the first diagonal and the circumflex was completely occluded. 19. History of 4-1 atrial flutter at the time of her cardiac catheterization. SOCIAL HISTORY: She is . She denies any tobacco or alcohol. 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 ALLERGIES: No known drug allergies. FAMILY HISTORY: Mom at 86 from complications of a heart attack, cancer, and pancreatitis. Father of prostate cancer. MEDICATIONS: Reviewed in electronic medical record. PHYSICAL EXAMINATION: GENERAL: She is awake, alert, and oriented x3. She is tearful. VITAL SIGNS: Her heart rate 55, respirations 18, and pulse ox is 95% on room air. HEENNT: 1+ carotid upstrokes. No evidence of carotid bruits. Jugular venous pressure appeared normal. Her sclerae is anicteric. Her hearing is normal. LUNGS: Clear to auscultation bilaterally with decreased breath sounds in the bases. HEART: Regular rate and rhythm. She has a crescendo-decrescendo murmur 2/6, which is mid peaking at the right sternal border. ABDOMEN: Soft, nontender and nondistended. Positive bowel sounds. EXTREMITIES: The right leg is wrapped. It is tender to touch. Her foot is erythematous. The left leg, there is no edema. PSYCHIATRIC: As noted, she appeared tearful. DIAGNOSTIC STUDIES: Her troponins are negative. Her EKGs were reviewed. Her hemoglobin is 10.1 and her platelet count is 208. Her ProBNP was 3911, which is actually lower than her BNP on 01/12/2017 when it was 7435. Chest x-ray: Cardiomegaly with slight decrease in pulmonary edema and pleural effusions. IMPRESSION: 1. Extensive coronary artery disease, essentially living off a very large dominant right coronary artery with total occlusion of the LAD beyond the first diagonal and total occlusion of the circumflex. 2. Status post dual chamber pacemaker, Biotronik, in August 2016 secondary to bradycardia and need for beta blockers. 3. Infrarenal abdominal aortic aneurysm, measuring 6.1 x 5.8 cm. 4. Repeat cardiac catheterization in August 2016, confirming the above coronary anatomy. 5. History moderate pulmonary hypertension. 6. History moderate aortic stenosis. 7. Extensive history of deep venous thrombosis, on chronic Coumadin anticoagulation. 8. Recent cellulitis with significant pain. I do think that her angina is being exacerbated due to the fact that she has significant pain in her leg. In addition, it is raising her blood pressure. She is on a very appropriate antianginal regimen. She is on the maximum dose of amlodipine at 5 mg b.i.d. I would consider tomorrow switching her Imdur to 60 mg b.i.d. to try to get her 24-hour dosing with her Imdur especially in light of the fact that her symptoms are worse in the morning before she gets her medications. Additionally, she is on Ranexa 500 mg b.i.d. and did not tolerate higher doses of Ranexa as it caused her trigeminal neuralgia pain to worsen. Given her blood pressure, there is room to increase her beta blockers further. She is currently taking 50 mg of Toprol daily. I would add another 25 mg at night and if possible increase it to 50 mg b.i.d. Her only option with regards to her coronary artery disease is medical therapy. If she continues to have progressive anginal symptoms, we will have to try to adjust her medical regimen as best we can. The other need is adequate pain control for her until her cellulitis resolves. All this was discussed with Paige. Thank you for allowing us to participate in her care.
[2017-01-24 11:54] LABS: CKMB/CK RATIO 4.3 (0-3.0)
[2017-01-24] MEDS ORDERED: IMDSR60 PO (12:49)
--- NOTE | 2017-01-24 12:55 | Discharge Instructions ---
Discharge Instructions Date of Service Jan 24, 2017. Admission Reason for Admission: Unstable Angina Pectoris Discharge Discharge Diagnosis / Problem: unstable angina Discharge Goals Goal(s): Decrease discomfort, Improve function Activity Recommendations Activity Limitations: resume your previous activity . Current Hospital Diet Patient's current hospital diet: AHA Diet (Heart Healthy) Discharge Diet Recommended Diet: AHA Diet (Heart Healthy) Pending Studies Studies pending at discharge: no Medical Emergencies . Who to Call and When: Medical Emergencies: If at any time you feel your situation is an emergency, please call 911 immediately. . Non-Emergent Contact Non-Emergency issues call your: Primary Care Provider Call Non-Emergent contact if: your pain is not controlled, your pain is worsening . . "Provider Documentation" section prepared by Farzana Cueva. . VTE Core Measure Inpt VTE Proph given/why not?: Warfarin (Coumadin)
[2017-01-24] MEDS ORDERED: FUROSEMIDE 20 MG TAB PO SCH (15:00)
[2017-01-24] MEDS ORDERED: CEFTRIAXONE SOD INJ 1,000 MG in DEXTROSE 5% 50ML 50 ML IV SCH (15:00)
[2017-01-24] MEDS: FUROSEMIDE 20 MG TAB PO SCH (16:09)
[2017-01-24] MEDS ORDERED: NURSING VERBAL MED ORDER ONE (16:30)
--- NOTE | 2017-01-24 16:51 | ECHOCARDIOGRAM REPORT ---
*NOTICE TO RECEIVING DEMOCRAT AGENCY This information is strictly Confidential and protected under [place] law. [place] law prohibits you from making any further disclosure of this information unless further disclosure is expressly permitted by the written consent of the person to whom it pertains or is authorized by law. A general authorization for the release of medical or other information is not sufficient for this purpose. Hospital accepts no responsibility if the information is made available to any other person, INCLUDING THE PATIENT. Interpretation Summary * Name: LEONARD NAYAK Study Date: 01/24/2017 09:11 AM BP: 143/103 mmHg * Patient Location: .2E\S\E212\S\1 HR: 104 * : 1930 (M/d/yyyy) Gender: Female Height: 62 in * Age: 87 yrs Ethnicity: [place] Weight: 186 lb * Ordering Physician: Farzana Cueva * Referring Physician: Cameron Avery * Performed By: Joan Mejai RDCS * * Reason For Study: Chest pain * BSA: 1.9 m2 * Normal left ventricular systolic function. * Moderate left ventricular hypertrophy. * Class 2 left ventricular diastolic dysfunction. * Severe left atrial dilatation. * Mild calcific aortic stenosis. * Trace pulmonic regurgitation. * Trace mitral regurgitation. * Mild mitral stenosis. * Trace tricuspid regurgitation. * The study was technically difficult. Procedure Details * A complete two-dimensional transthoracic echocardiogram was performed (2D, M-mode, Doppler and color flow Doppler). * A contrast injection of Definity was performed to improve assessment of LV function. * Contrast was injected into an intravenous site in the central line. * One vial of Definity ultrasound contrast was diluted in normal saline to a total volume of 10 ml. A total of '3' ml of solution was administered during imaging. * Lot # [id number] of Definity utilized for procedure. * Expiration date FEB 05. * The attending nurse who injected the contrast agent was Giancarlo Garza RN. Left Ventricle * The left ventricle is normal in size. * Moderate concentric left ventricular hypertrophy except for disproportionate thickening of the basal septum. * Ejection Fraction = 65-70%. * Left ventricular systolic function is normal. * A full diastolic examination was done with clinical findings of Class II diastolic dysfunction. * The left ventricular wall motion is normal. Right Ventricle * The right ventricle is normal in size and function. * The right ventricular systolic function is normal as assessed by tricuspid annular plane systolic excursion (TAPSE) (normal >1.5 cm). Atria * The left atrium is severely dilated. * Right atrial size is normal. Mitral Valve * There is severe mitral annular calcification. * The mitral valve is not well visualized. * There is mild mitral stenosis. * There is trace mitral regurgitation. Tricuspid Valve * The tricuspid valve is not well visualized. * No significant tricuspid stenosis. * There is trace tricuspid regurgitation. * Right ventricular systolic pressure is normal. Aortic Valve * The aortic valve is trileaflet. * The valve is calcified and has decreased opening on 2D imaging. * Dimensionless aortic valve index 0.51. * Mild valvular aortic stenosis. * There is no significant aortic regurgitation. Pulmonic Valve * The pulmonic valve is not well visualized. * The pulmonary valve is inadequately visualized, but the Doppler data is adequate for interpretation. * There is no pulmonic valvular stenosis. * Trace pulmonic valvular regurgitation. Great Vessels * The aortic root is normal size. Pericardium/Pleural * There is no pericardial effusion. Great Vessels * Normal inferior vena cava diameter and respiratory variation suggests normal central venous pressure. MMode 2D Measurements and Calculations IVSd 1.5 cm LVIDd 3.4 cm LVIDs 2.0 cm LVPWd 1.5 cm IVS/LVPW 1.0 FS 41.1 % EDV(Teich) 46.7 ml ESV(Teich) 12.6 ml EF(Teich) 73.1 % EDV(cubed) 38.6 ml ESV(cubed) 7.9 ml EF(cubed) 79.6 % LV mass(C)d 188.8 grams LV mass(C)dI 101.9 grams/m\S\2 SV(Teich) 34.2 ml SI(Teich) 18.4 ml/m\S\2 SV(cubed) 30.7 ml SI(cubed) 16.6 ml/m\S\2 Ao root diam 3.2 cm Ao root area 8.0 cm\S\2 LA dimension 5.3 cm asc Aorta Diam 3.5 cm LA/Ao 1.7 LVAd ap4 25.7 cm\S\2 LVLd ap4 7.0 cm EDV(MOD-sp4) 77.1 ml EDV(sp4-el) 80.4 ml LVAs ap4 15.7 cm\S\2 LVLs ap4 7.0 cm ESV(MOD-sp4) 28.6 ml ESV(sp4-el) 29.7 ml EF(MOD-sp4) 63.0 % EF(sp4-el) 63.1 % LVAd ap2 24.0 cm\S\2 LVLd ap2 6.6 cm EDV(MOD-sp2) 70.3 ml EDV(sp2-el) 73.7 ml LVAs ap2 13.0 cm\S\2 LVLs ap2 5.3 cm ESV(MOD-sp2) 29.6 ml ESV(sp2-el) 27.0 ml EF(MOD-sp2) 57.9 % EF(sp2-el) 63.4 % LVLd %diff -4.97 % EDV(MOD-bp) 74.6 ml LVLs %diff -32.48 % ESV(MOD-bp) 31.3 ml EF(MOD-bp) 58.0 % SV(MOD-sp4) 48.6 ml SI(MOD-sp4) 26.2 ml/m\S\2 SV(MOD-sp2) 40.7 ml SI(MOD-sp2) 22.0 ml/m\S\2 SV(MOD-bp) 43.3 ml SI(MOD-bp) 23.4 ml/m\S\2 SV(sp4-el) 50.7 ml SI(sp4-el) 27.4 ml/m\S\2 SV(sp2-el) 46.7 ml SI(sp2-el) 25.2 ml/m\S\2 Doppler Measurements and Calculations MV E max loan 122.4 cm/sec MV A max loan 75.0 cm/sec MV E/A 1.6 MV V2 max 130.1 cm/sec MV max PG 6.8 mmHg MV V2 mean 68.8 cm/sec MV mean PG 2.2 mmHg MV V2 VTI 40.5 cm MV dec time 0.34 sec Ao V2 max 226.0 cm/sec Ao max PG 20.4 mmHg Ao max PG (full) 15.1 mmHg Ao V2 mean 145.3 cm/sec Ao mean PG 9.8 mmHg Ao V2 VTI 42.4 cm LV V1 max PG 5.3 mmHg LV V1 max 115.1 cm/sec SV(Ao) 339.0 ml SI(Ao) 182.9 ml/m\S\2 PA V2 max 90.6 cm/sec PA max PG 3.3 mmHg PA acc slope 1056.0 cm/sec\S\2 PA acc time 0.07 sec PI end-d loan 87.1 cm/sec TR max loan 141.2 cm/sec PA pr(Accel) 47.8 mmHg
[2017-01-24] MEDS: WARFARIN SOD 5 MG TAB PO SCH (17:24)
[2017-01-24] MEDS: CEFTRIAXONE SOD INJ 1,000 MG in DEXTROSE 5% 50ML 50 ML IV SCH (17:28)
[2017-01-24] MEDS: METOPROLOL SUCC 25MG EXT REL TAB PO SCH (20:42)
[2017-01-25] VITALS (9 sets, daily range): BP systolic 120–129; BP diastolic 70–81; PULSE 60–84; TEMP 36.5–36.9; O2SAT 93–97
[2017-01-25] MEDS: TRAMADOL HCL 50 MG TAB PO PRN ×3 (03:34→18:59)
[2017-01-25] MEDS: PANTOprazole SOD 40 MG TAB PO SCH (06:10)
[2017-01-25] MEDS: NITROGLYCERIN OINT 2% 1GM PACKET EXT SCH ×3 (06:10→19:00)
[2017-01-25 06:21] LABS: INR 2.1 (0.9-1.1); PROTHROMBIN TIME (PATIENT) 22.9 SECONDS (9.0-12.0)
[2017-01-25] MEDS: ISOSORBIDE MONONITRATE 60 MG TABCR PO SCH ×3 (08:00→20:22)
[2017-01-25] MEDS: LIDODERM (LIDOCAINE) PATCH 5% TD SCH (08:00)
[2017-01-25] MEDS: FERROUS SULFATE 325 MG TAB PO SCH ×2 (08:02→17:54)
[2017-01-25] MEDS: DOCUSATE SODIUM 100 MG CAP PO SCH ×2 (08:02→20:20)
[2017-01-25] MEDS: COLLAGENASE OINT 30 GM TUBE EXT SCH (08:02)
[2017-01-25] MEDS: POTASSIUM CHLORIDE 20 MEQ TABCR PO SCH ×2 (08:02→20:21)
[2017-01-25] MEDS: FUROSEMIDE 40 MG TAB PO SCH (08:03)
[2017-01-25] MEDS: RANOLAZINE 500 MG ER TAB PO SCH ×2 (08:03→20:24)
[2017-01-25] MEDS: GABAPENTIN 300 MG CAP PO SCH ×3 (08:03→20:22)
[2017-01-25] MEDS: METOPROLOL SUCC 50MG EXT REL TAB PO SCH (08:03)
[2017-01-25] MEDS: CLOPIDOGREL BISULFATE 75 MG TAB PO SCH (08:03)
[2017-01-25] MEDS: CEROVITE ADV FORMULA TAB PO SCH (08:03)
[2017-01-25] MEDS: OXCARBAZEPINE 150 MG TAB PO SCH ×4 (08:03→20:21)
[2017-01-25] MEDS: AMLODIPINE BESYLATE 5 MG TAB PO SCH ×2 (08:03→20:20)
[2017-01-25] MEDS: CEFTRIAXONE SOD INJ 1,000 MG in DEXTROSE 5% 50ML 50 ML IV SCH (13:59)
[2017-01-25] MEDS: FUROSEMIDE 20 MG TAB PO SCH (15:05)
[2017-01-25] MEDS: WARFARIN SOD 5 MG TAB PO SCH (16:11)
[2017-01-25] MEDS: ACETAMINOPHEN 325 MG TAB PO PRN (16:11)
[2017-01-25] MEDS: METOPROLOL SUCC 25MG EXT REL TAB PO SCH (20:23)
[2017-01-26] MEDS: NITROGLYCERIN OINT 2% 1GM PACKET EXT SCH ×4 (00:39→17:51)
[2017-01-26] MEDS: ACETAMINOPHEN 325 MG TAB PO PRN ×2 (00:45→14:40)
--- NOTE | 2017-01-26 04:19 | Progress Note ---
Subjective Date of Service: Jan 25, 2017. Subjective Pt evaluation today including: conversation w/ patient, conversation w/ family , physical exam, lab review, review of inpatient medication list Pain: mild pain in right leg PO Intake: adequate Voiding: no voiding problems patient feeling well today, no issues, right leg actually feels better discussed situation with patient and family waiting for insurance authorization for SNF, likely not until Friday Problem List Medical Problems: (1) Acute renal failure Status: Acute (2) Cellulitis Status: Acute (3) CHF (congestive heart failure) Status: Acute (4) NSTEMI (non-ST elevated myocardial infarction) Status: Acute (5) Precordial chest pain Status: Acute (6) Right-sided chest pain Status: Acute (7) Supratherapeutic INR Status: Acute Review of Systems Constitutional: + weakness, + fatigue Skin: + rash (right LE) All Other Systems: Reviewed and Negative Medications Current Inpatient Medications Medications (Trade) Dose Ordered Sig/Darrick Route Start Time Stop Time Status Last Admin Dose Admin Acetaminophen (Tylenol Tab) 650 mg Q4H PRN PO 01/23/17 11:45 02/22/17 11:44 01/25/17 16:11 650 MG Ondansetron HCl (Zofran Inj) 4 mg Q6H PRN IV 01/23/17 11:45 02/22/17 11:44 Nitroglycerin (Nitrostat Tab) 0.4 mg UD PRN SL 01/23/17 11:45 02/22/17 11:44 01/24/17 04:52 0.4 MG Polyethylene (Miralax Powder Packet) 17 gm DAILY PRN PO 01/23/17 11:45 02/22/17 11:44 Amlodipine Besylate (Norvasc Tab) 5 mg BID PO 01/23/17 21:00 02/22/17 20:59 01/25/17 08:03 5 MG Clopidogrel Bisulfate (plAVix TAB) 75 mg DAILY PO 01/24/17 09:00 02/23/17 08:59 01/25/17 08:03 75 MG Docusate Sodium (coLACE CAP) 100 mg BID PO 01/23/17 21:00 02/22/17 20:59 01/25/17 08:02 100 MG Multi-Ingredient Ointment (Eucerin Unscented Cr) 1 appln BID PRN EXT 01/23/17 11:45 02/22/17 11:44 Ferrous Sulfate (Feosol Tab) 325 mg BIDM PO 01/23/17 16:45 02/22/17 17:59 01/25/17 08:02 325 MG Furosemide (Lasix Tab) 40 mg DAILY PO 01/24/17 09:00 02/23/17 08:59 01/25/17 08:03 40 MG Gabapentin (Neurontin Cap) 600 mg TID PO 01/23/17 14:00 02/22/17 13:59 01/25/17 13:59 600 MG Lidocaine (Lidoderm Patch 5%) 1 patch DAILY TD 01/24/17 09:00 02/23/17 08:59 Metoprolol Succinate (Toprol Xl Tab) 50 mg DAILY PO 01/24/17 09:00 02/23/17 08:59 01/25/17 08:03 50 MG Multivitamins/ Minerals (Multivitamin W/ Minerals Tab) 1 tab DAILY PO 01/24/17 09:00 02/23/17 08:59 01/25/17 08:03 1 TAB Oxcarbazepine (Trileptal Tab) 150 mg QID PO 01/23/17 13:00 02/22/17 12:59 01/25/17 12:37 150 MG Oxycodone HCl (Roxicodone Immediate Rel Tab) 5 mg Q4H PRN PO 01/23/17 11:45 02/06/17 11:44 01/24/17 09:40 5 MG Pantoprazole Sodium (Protonix Tab) 40 mg DAILYBB PO 01/24/17 06:00 02/23/17 06:59 01/25/17 06:10 40 MG Potassium Chloride (Klor-Con Tab) 20 meq BID PO 01/23/17 21:00 02/22/17 20:59 01/25/17 08:02 20 MEQ Tramadol HCl (Ultram Tab) 50 mg Q4H PRN PO 01/23/17 11:45 02/22/17 11:44 01/25/17 13:58 50 MG Ranolazine (Ranexa ER Tab) 500 mg BID PO 01/23/17 21:00 02/22/17 20:59 01/25/17 08:03 500 MG Miscellaneous (Remove Lidoderm Patch) 1 ea DAILY@21 N/A 01/23/17 21:00 02/22/17 20:59 01/24/17 20:43 1 EA Miscellaneous (Iv Fluids Completed) 1 ea PRN PRN N/A 01/23/17 12:15 01/23/18 12:14 Furosemide (Lasix Tab) 20 mg DAILY@1500 PO 01/24/17 15:00 02/23/17 14:59 01/25/17 15:05 20 MG Simethicone (Mylicon Chew Tab) 80 mg Q6H PRN PO 01/24/17 05:15 02/23/17 05:14 01/24/17 06:39 80 MG Nitroglycerin (Nitroglycerin 2% Oint) 1 inch Q6H EXT 01/24/17 06:00 02/23/17 05:59 01/25/17 14:11 1 INCH Isosorbide Mononitrate (Imdur Ext Rel Tab) 60 mg BID PO 01/25/17 09:00 02/24/17 08:59 01/25/17 08:02 60 MG Metoprolol Succinate (Toprol Xl Tab) 25 mg PM PO 01/24/17 21:00 02/23/17 20:59 01/24/17 20:42 25 MG Warfarin Sodium (Coumadin Tab) 5 mg DAILY@16 PO 01/24/17 16:00 02/23/17 15:59 01/25/17 16:11 5 MG Ceftriaxone Sodium 1000 mg/ Dextrose 60 ml @ 120 mls/hr DAILY@1400 IV 01/24/17 15:30 02/03/17 15:29 01/25/17 13:59 120 MLS/HR Collagenase (Santyl Oint) 1 appln DAILY EXT 01/25/17 09:00 02/24/17 08:59 01/25/17 08:02 1 APPLN Heparin Sodium (Porcine) (Heparin 10 Unit/ ml 5 ml Flush) 5 ml PRN PRN FLUSH 01/25/17 01:15 02/24/17 01:14 01/25/17 15:02 5 ML Objective Vital Signs Date Time Temp Pulse Resp B/P (MAP) Pulse Ox O2 Delivery O2 Flow Rate FiO2 01/25/17 15:53 36.6 64 20 120/76 (91) 94 Room Air 01/25/17 09:39 36.8 60 18 122/74 (90) 95 Room Air 01/25/17 09:33 36.9 63 18 93 01/25/17 08:05 36.9 63 18 129/78 (95) 93 Room Air 01/25/17 08:01 94 Room Air 01/25/17 04:00 Room Air 01/25/17 03:37 36.5 60 19 129/75 (93) 94 Room Air 01/25/17 00:54 36.6 65 18 127/70 (89) 97 Room Air 01/25/17 00:00 Room Air 01/24/17 20:12 36.8 65 16 135/82 (99) 92 Room Air 01/24/17 20:00 Room Air 01/24/17 16:42 36.6 63 18 127/71 (89) 95 Room Air Physical Exam General Appearance: WD/WN, no apparent distress Eyes: normal inspection, EOMI, sclerae normal ENT: normal ENT inspection, hearing grossly normal, pharynx normal Respiratory/Chest: chest non-tender, lungs clear, normal breath sounds, no respiratory distress, no accessory muscle use Cardiovascular: regular rate, rhythm, no edema, no gallop, no JVD, no murmur Abdomen: normal bowel sounds, non tender, soft, no organomegaly Extremities: no calf tenderness, normal capillary refill, pelvis stable, + pertinent finding (right LE edema, tender, dark discoloration and some small wounds) Neurologic/Psychiatric: 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 Ely presented for chest pain at rest, no further chest pain, cardiology did not recommend invasive testing She was recently here for cellulitis of the right lower extremity for which she continues to see the wound clinic and receive IV rocephin Unstable Angina/CAD - Relieved with nitro - troponin negative - continue clopidogrel - Dr. Clark recommends increasing Imdur to 60mg BID, increasing Toprol to 50mg AM and 25mg PM, try to raise to 50mg PM - continue prn nitro Cellulitis of the right lower extremity - continue daily Rocephin, can continue at SNF - Wound care consult. Pleural effusion on X ray - Fluid overload may be contributing to chest pain due to some demand ischemia - BNP - elevated - continue home dose of lasix - extra dose of po lasix given on 01/24, no real diuresis Hx of DVT/ PE - Restart coumadin, INR 2.1 - SCDs HTN - continue amlodipine and metoprolol, Imdur Trigeminal neuralgia - continue oxycarbazepine Disposition - Ms. Ely came here from [facility] but per case management she may not meet criteria to return to . Patient agreeable to SNF placement, needs insurance authorization, here until Friday
[2017-01-26] MEDS: PANTOprazole SOD 40 MG TAB PO SCH (06:00)
[2017-01-26 07:20] VITALS: BP 133/78; PULSE 62; TEMP 36.4; O2SAT 94
[2017-01-26 07:46] LABS: INR 1.9 (0.9-1.1); PROTHROMBIN TIME (PATIENT) 21.3 SECONDS (9.0-12.0)
[2017-01-26] MEDS: COLLAGENASE OINT 30 GM TUBE EXT SCH (08:00)
[2017-01-26] MEDS: LIDODERM (LIDOCAINE) PATCH 5% TD SCH (08:00)
[2017-01-26] MEDS: DOCUSATE SODIUM 100 MG CAP PO SCH ×2 (08:00→21:13)
[2017-01-26] MEDS: OXCARBAZEPINE 150 MG TAB PO SCH ×4 (08:33→21:14)
[2017-01-26] MEDS: POTASSIUM CHLORIDE 20 MEQ TABCR PO SCH ×2 (08:34→21:13)
[2017-01-26] MEDS: RANOLAZINE 500 MG ER TAB PO SCH ×2 (08:34→21:13)
[2017-01-26] MEDS: CLOPIDOGREL BISULFATE 75 MG TAB PO SCH (08:34)
[2017-01-26] MEDS: FERROUS SULFATE 325 MG TAB PO SCH ×2 (08:35→17:51)
[2017-01-26] MEDS: METOPROLOL SUCC 50MG EXT REL TAB PO SCH (08:35)
[2017-01-26] MEDS: GABAPENTIN 300 MG CAP PO SCH ×3 (08:37→21:17)
[2017-01-26] MEDS: AMLODIPINE BESYLATE 5 MG TAB PO SCH ×2 (08:37→21:17)
[2017-01-26] MEDS: CEROVITE ADV FORMULA TAB PO SCH (08:38)
[2017-01-26] MEDS: ISOSORBIDE MONONITRATE 60 MG TABCR PO SCH ×2 (08:38→21:15)
[2017-01-26] MEDS: FUROSEMIDE 40 MG TAB PO SCH (08:43)
[2017-01-26 10:31] VITALS: O2SAT 94
[2017-01-26] MEDS: TRAMADOL HCL 50 MG TAB PO PRN ×3 (11:16→21:23)
[2017-01-26] MEDS: CEFTRIAXONE SOD INJ 1,000 MG in DEXTROSE 5% 50ML 50 ML IV SCH (14:40)
[2017-01-26] MEDS: FUROSEMIDE 20 MG TAB PO SCH (14:41)
[2017-01-26 15:30] VITALS: BP 127/77; PULSE 61; TEMP 36.6; O2SAT 96
[2017-01-26 16:00] VITALS: O2SAT 96
[2017-01-26] MEDS: WARFARIN SOD 5 MG TAB PO SCH (16:06)
[2017-01-26] MEDS: METOPROLOL SUCC 25MG EXT REL TAB PO SCH (21:14)
[2017-01-26 23:56] VITALS: BP 114/71; PULSE 65; TEMP 36.7; O2SAT 97
[2017-01-27] MEDS: NITROGLYCERIN OINT 2% 1GM PACKET EXT SCH ×5 (00:48→23:39)
[2017-01-27] MEDS: ACETAMINOPHEN 325 MG TAB PO PRN ×2 (00:48→09:39)
[2017-01-27 05:41] VITALS: BP 122/80
[2017-01-27] MEDS: PANTOprazole SOD 40 MG TAB PO SCH (05:43)
[2017-01-27] MEDS: TRAMADOL HCL 50 MG TAB PO PRN ×3 (05:59→19:01)
--- NOTE | 2017-01-27 06:23 | Progress Note ---
Subjective Date of Service: Jan 26, 2017. Subjective Pt evaluation today including: conversation w/ patient, physical exam, chart review patient feeling well today, no issues, right leg actually feels better Patient denies any chest pain since being in hospital. discussed situation with patient Family was not in room when I examined patient today. waiting for insurance authorization for SNF, likely not until Friday Problem List Medical Problems: (1) Acute renal failure Status: Acute (2) Cellulitis Status: Acute (3) CHF (congestive heart failure) Status: Acute (4) NSTEMI (non-ST elevated myocardial infarction) Status: Acute (5) Precordial chest pain Status: Acute (6) Right-sided chest pain Status: Acute (7) Supratherapeutic INR Status: Acute Review of Systems Constitutional: No fever, No chills Respiratory: No see HPI, No cough, No sputum Cardiac: No chest pain, No orthopnea Breast: No breast lump Abdomen: No pain, No nausea Female : No dysuria, No urinary frequency Psychiatric: No depression symptoms Heme: No see HPI, No abnormal bleeding/bruising Endo: No fatigue Skin: No rash, No itch All Other Systems: Reviewed and Negative Medications Current Inpatient Medications Medications (Trade) Dose Ordered Sig/Darrick Route Start Time Stop Time Status Last Admin Dose Admin Acetaminophen (Tylenol Tab) 650 mg Q4H PRN PO 01/23/17 11:45 02/22/17 11:44 01/27/17 00:48 650 MG Ondansetron HCl (Zofran Inj) 4 mg Q6H PRN IV 01/23/17 11:45 02/22/17 11:44 Nitroglycerin (Nitrostat Tab) 0.4 mg UD PRN SL 01/23/17 11:45 02/22/17 11:44 01/24/17 04:52 0.4 MG Polyethylene (Miralax Powder Packet) 17 gm DAILY PRN PO 01/23/17 11:45 02/22/17 11:44 Amlodipine Besylate (Norvasc Tab) 5 mg BID PO 01/23/17 21:00 02/22/17 20:59 01/26/17 21:17 5 MG Clopidogrel Bisulfate (plAVix TAB) 75 mg DAILY PO 01/24/17 09:00 02/23/17 08:59 01/26/17 08:34 75 MG Docusate Sodium (coLACE CAP) 100 mg BID PO 01/23/17 21:00 02/22/17 20:59 01/26/17 21:13 100 MG Multi-Ingredient Ointment (Eucerin Unscented Cr) 1 appln BID PRN EXT 01/23/17 11:45 02/22/17 11:44 Ferrous Sulfate (Feosol Tab) 325 mg BIDM PO 01/23/17 16:45 02/22/17 17:59 01/26/17 17:51 325 MG Furosemide (Lasix Tab) 40 mg DAILY PO 01/24/17 09:00 02/23/17 08:59 01/26/17 08:43 40 MG Gabapentin (Neurontin Cap) 600 mg TID PO 01/23/17 14:00 02/22/17 13:59 01/26/17 21:17 600 MG Lidocaine (Lidoderm Patch 5%) 1 patch DAILY TD 01/24/17 09:00 02/23/17 08:59 Metoprolol Succinate (Toprol Xl Tab) 50 mg DAILY PO 01/24/17 09:00 02/23/17 08:59 01/26/17 08:35 50 MG Multivitamins/ Minerals (Multivitamin W/ Minerals Tab) 1 tab DAILY PO 01/24/17 09:00 02/23/17 08:59 01/26/17 08:38 1 TAB Oxcarbazepine (Trileptal Tab) 150 mg QID PO 01/23/17 13:00 02/22/17 12:59 01/26/17 21:14 150 MG Oxycodone HCl (Roxicodone Immediate Rel Tab) 5 mg Q4H PRN PO 01/23/17 11:45 02/06/17 11:44 01/24/17 09:40 5 MG Pantoprazole Sodium (Protonix Tab) 40 mg DAILYBB PO 01/24/17 06:00 02/23/17 06:59 01/27/17 05:43 40 MG Potassium Chloride (Klor-Con Tab) 20 meq BID PO 01/23/17 21:00 02/22/17 20:59 01/26/17 21:13 20 MEQ Tramadol HCl (Ultram Tab) 50 mg Q4H PRN PO 01/23/17 11:45 02/22/17 11:44 01/27/17 05:59 50 MG Ranolazine (Ranexa ER Tab) 500 mg BID PO 01/23/17 21:00 02/22/17 20:59 01/26/17 21:13 500 MG Miscellaneous (Remove Lidoderm Patch) 1 ea DAILY@21 N/A 01/23/17 21:00 02/22/17 20:59 01/24/17 20:43 1 EA Miscellaneous (Iv Fluids Completed) 1 ea PRN PRN N/A 01/23/17 12:15 01/23/18 12:14 Furosemide (Lasix Tab) 20 mg DAILY@1500 PO 01/24/17 15:00 02/23/17 14:59 01/26/17 14:41 20 MG Simethicone (Mylicon Chew Tab) 80 mg Q6H PRN PO 01/24/17 05:15 02/23/17 05:14 01/24/17 06:39 80 MG Nitroglycerin (Nitroglycerin 2% Oint) 1 inch Q6H EXT 01/24/17 06:00 02/23/17 05:59 01/27/17 05:42 1 INCH Isosorbide Mononitrate (Imdur Ext Rel Tab) 60 mg BID PO 01/25/17 09:00 02/24/17 08:59 01/26/17 21:15 60 MG Metoprolol Succinate (Toprol Xl Tab) 25 mg PM PO 01/24/17 21:00 02/23/17 20:59 01/26/17 21:14 25 MG Warfarin Sodium (Coumadin Tab) 5 mg DAILY@16 PO 01/24/17 16:00 02/23/17 15:59 01/26/17 16:06 5 MG Ceftriaxone Sodium 1000 mg/ Dextrose 60 ml @ 120 mls/hr DAILY@1400 IV 01/24/17 15:30 02/03/17 15:29 01/26/17 14:40 120 MLS/HR Collagenase (Santyl Oint) 1 appln DAILY EXT 01/25/17 09:00 02/24/17 08:59 01/25/17 08:02 1 APPLN Heparin Sodium (Porcine) (Heparin 10 Unit/ ml 5 ml Flush) 5 ml PRN PRN FLUSH 01/25/17 01:15 02/24/17 01:14 01/25/17 15:02 5 ML Objective Vital Signs Date Time Temp Pulse Resp B/P (MAP) Pulse Ox O2 Delivery O2 Flow Rate FiO2 01/27/17 05:41 122/80 (94) 01/27/17 00:58 Room Air 01/26/17 23:56 36.7 65 18 114/71 (85) 97 Room Air 01/26/17 16:00 96 Room Air 01/26/17 15:30 36.6 61 20 127/77 (94) 96 Room Air 01/26/17 10:31 94 Room Air 01/26/17 07:20 36.4 62 20 133/78 (96) 94 Room Air Physical Exam Comments: General Appearance: WD/WN, no apparent distress Eyes: normal inspection, EOMI, sclerae normal ENT: normal ENT inspection, hearing grossly normal, pharynx normal Respiratory/Chest: chest non-tender, lungs clear, normal breath sounds, no respiratory distress, no accessory muscle use Cardiovascular: regular rate, rhythm, no edema, no gallop, no JVD, no murmur Abdomen: normal bowel sounds, non tender, soft, no organomegaly Extremities: no calf tenderness, normal capillary refill, pelvis stable, + pertinent finding (right LE edema, tender, dark discoloration and some small wounds) Neurologic/Psychiatric: 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 Ely presented for chest pain at rest, no further chest pain, cardiology did not recommend invasive testing She was recently here for cellulitis of the right lower extremity for which she continues to see the wound clinic and receive IV rocephin Unstable Angina/CAD - Relieved with nitro - troponin negative - continue clopidogrel - Dr. Clark recommends increasing Imdur to 60mg BID, increasing Toprol to 50mg AM and 25mg PM, try to raise to 50mg PM tomorrow (Friday) if still here - continue prn nitro Cellulitis of the right lower extremity - continue daily Rocephin, can continue at SNF - Wound care consult. Pleural effusion on X ray - Fluid overload may be contributing to chest pain due to some demand ischemia - BNP - elevated - continue home dose of lasix - extra dose of po lasix given on 01/24, no real diuresis Hx of DVT/ PE - Restart coumadin, INR 2.1 - SCDs HTN - continue amlodipine and metoprolol, Imdur Trigeminal neuralgia - continue oxycarbazepine Disposition - Ms. Ely came here from [facility] but per case management she may not meet criteria to return to . Patient agreeable to SNF placement, needs insurance authorization, here until Friday Continued [facility] stay due to: other Discharge planning: long-term facility
[2017-01-27 06:47] LABS: INR 1.9 (0.9-1.1); PROTHROMBIN TIME (PATIENT) 21.2 SECONDS (9.0-12.0)
[2017-01-27 07:22] VITALS: BP 130/83; PULSE 62; TEMP 36.5; O2SAT 94
[2017-01-27] MEDS: DOCUSATE SODIUM 100 MG CAP PO SCH ×2 (08:00→20:00)
[2017-01-27] MEDS: LIDODERM (LIDOCAINE) PATCH 5% TD SCH (08:00)
[2017-01-27] MEDS: POTASSIUM CHLORIDE 20 MEQ TABCR PO SCH ×2 (09:29→20:40)
[2017-01-27] MEDS: OXCARBAZEPINE 150 MG TAB PO SCH ×4 (09:29→20:39)
[2017-01-27] MEDS: METOPROLOL SUCC 50MG EXT REL TAB PO SCH (09:30)
[2017-01-27] MEDS: CLOPIDOGREL BISULFATE 75 MG TAB PO SCH (09:30)
[2017-01-27] MEDS: RANOLAZINE 500 MG ER TAB PO SCH ×2 (09:30→20:39)
[2017-01-27] MEDS: CEROVITE ADV FORMULA TAB PO SCH (09:31)
[2017-01-27] MEDS: FERROUS SULFATE 325 MG TAB PO SCH ×2 (09:31→17:36)
[2017-01-27] MEDS: ISOSORBIDE MONONITRATE 60 MG TABCR PO SCH ×2 (09:31→20:42)
[2017-01-27] MEDS: AMLODIPINE BESYLATE 5 MG TAB PO SCH ×2 (09:32→20:41)
[2017-01-27] MEDS: GABAPENTIN 300 MG CAP PO SCH ×3 (09:32→20:41)
[2017-01-27] MEDS: FUROSEMIDE 40 MG TAB PO SCH (09:33)
[2017-01-27] MEDS: COLLAGENASE OINT 30 GM TUBE EXT SCH (14:16)
[2017-01-27] MEDS: CEFTRIAXONE SOD INJ 1,000 MG in DEXTROSE 5% 50ML 50 ML IV SCH (14:16)
[2017-01-27] MEDS: FUROSEMIDE 20 MG TAB PO SCH (14:17)
--- NOTE | 2017-01-27 14:37 | Hospitalist Progress Note ---
Hospitalist Progress Note Date of Service Jan 27, 2017. Subjective Pt evaluation today including: conversation w/ patient, physical exam, chart review, lab review, review of inpatient medication list Pain: 8/10 sharp RLE pain PO Intake: Tolerating PO diet Voiding: no voiding problems Patient reports feeling well. She denies any chest pain today. She states that her right leg is slowly feeling better. She currently complains of 8/10 sharp pain in the back of her right calf where there is a large open wound that is healing. The patient denies fevers, chills, sweats, chest pain, palpitations , claudication, cough, wheezing, shortness of breath, nausea, vomiting, abdominal pain, dysuria, hematuria, urinary retention, paralysis, weakness, numbness and tingling. Additional Comments: See HPI for pertinent positives and negatives. All other systems reviewed and negative. Objective Vital Signs Date Time Temp Pulse Resp B/P (MAP) Pulse Ox O2 Delivery O2 Flow Rate FiO2 01/27/17 10:40 Room Air 01/27/17 07:22 36.5 62 18 130/83 (99) 94 Room Air 01/27/17 05:41 122/80 (94) 01/27/17 00:58 Room Air 01/26/17 23:56 36.7 65 18 114/71 (85) 97 Room Air 01/26/17 16:00 96 Room Air 01/26/17 15:30 36.6 61 20 127/77 (94) 96 Room Air Physical Exam Notes: General appearance: +Obese. Well-developed, well-nourished, no apparent distress Head: Normocephalic, atraumatic Eyes: Normal inspection, PERRL, EOMI ENT: Normal ENT inspection, hearing grossly normal, pharynx normal Neck: Supple, no JVD, trachea midline Respiratory/Chest: +Decreased breath sounds in bases. On room air. No respiratory distress Cardiovascular: +Systolic murmur. Regular rate & rhythm, no gallop Abdomen/GI: +RLL ileostomy. Normal bowel sounds, non-tender, soft Extremities/Musculoskeletal: +RLE erythema improved. 1+ pitting edema. Very TTP especially back of calf and lateral ankle. Neurological/Psych: Alert, normal mood/affect, oriented x 3 Skin: +Ulcers on lateral and posterior aspects of RLE. 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 Unstable Angina/CAD--stable -Admit to med/surg -Serial troponin negative -Cardiology consulted, appreciate recs: Change Imdur to 60 mg PO BID. Increase Toprol XL to 50 mg PO qam and 25 mg PO qpm. Could try Toprol XL 50 mg PO BID -Continue Ranexa 500 mg PO BID -HR has been low 60s, will hold off on increasing Toprol to 50 mg PO BID for now. Keep current dose. -Continue nitro prn Cellulitis of the right lower extremity--improving -Continue daily Rocephin, can continue at SNF -Wound care consult. Pleural effusion on X ray, chronic diastolic CHF - Fluid overload may be contributing to chest pain due to some demand ischemia - BNP - elevated - Continue home dose of Lasix 40 mg PO qam and 20 mg PO at 1500 - Extra dose of PO Lasix given on 01/24, no real diuresis Hx of DVT/ PE - Continue warfarin 5 mg PO qd - INR 1.9 - SCDs HTN - Continue amlodipine 5 mg PO BID, Toprol XL 50 mg PO qam and 25 mg PO hs Trigeminal neuralgia - Continue oxcarbazepine 150 mg PO QID Dispo -Pt from [facility]. Stable for discharge, insurance auth pending
[2017-01-27 15:29] VITALS: BP 123/81; PULSE 60; TEMP 36.6; O2SAT 96
[2017-01-27] MEDS: WARFARIN SOD 5 MG TAB PO SCH (15:38)
[2017-01-27 16:00] VITALS: O2SAT 96
[2017-01-27 20:35] VITALS: BP 127/81; PULSE 82; O2SAT 93
[2017-01-27] MEDS: METOPROLOL SUCC 25MG EXT REL TAB PO SCH (20:42)
[2017-01-27 23:11] VITALS: BP 144/89; PULSE 72; TEMP 36.7; O2SAT 96
[2017-01-28] MEDS: TRAMADOL HCL 50 MG TAB PO PRN ×2 (00:28→12:29)
[2017-01-28 05:43] VITALS: BP 128/80; PULSE 77
[2017-01-28] MEDS: NITROGLYCERIN OINT 2% 1GM PACKET EXT SCH ×2 (05:46→12:24)
[2017-01-28] MEDS: PANTOprazole SOD 40 MG TAB PO SCH (05:46)
[2017-01-28 07:06] VITALS: BP 150/90; PULSE 69; TEMP 36.8; O2SAT 91
[2017-01-28] MEDS: DOCUSATE SODIUM 100 MG CAP PO SCH (07:54)
[2017-01-28] MEDS: LIDODERM (LIDOCAINE) PATCH 5% TD SCH (07:55)
[2017-01-28] MEDS: POTASSIUM CHLORIDE 20 MEQ TABCR PO SCH (07:57)
[2017-01-28] MEDS: OXCARBAZEPINE 150 MG TAB PO SCH ×2 (07:57→12:23)
[2017-01-28] MEDS: FERROUS SULFATE 325 MG TAB PO SCH (07:58)
[2017-01-28] MEDS: METOPROLOL SUCC 50MG EXT REL TAB PO SCH (07:58)
[2017-01-28] MEDS: CEROVITE ADV FORMULA TAB PO SCH (07:58)
[2017-01-28] MEDS: CLOPIDOGREL BISULFATE 75 MG TAB PO SCH (07:58)
[2017-01-28] MEDS: GABAPENTIN 300 MG CAP PO SCH (07:58)
[2017-01-28] MEDS: RANOLAZINE 500 MG ER TAB PO SCH (07:58)
[2017-01-28] MEDS: AMLODIPINE BESYLATE 5 MG TAB PO SCH (07:58)
[2017-01-28] MEDS: ISOSORBIDE MONONITRATE 60 MG TABCR PO SCH (07:58)
[2017-01-28] MEDS: FUROSEMIDE 40 MG TAB PO SCH (07:58)
[2017-01-28] MEDS: COLLAGENASE OINT 30 GM TUBE EXT SCH (08:22)
[2017-01-28] MEDS ORDERED: TPRSR25 PO (09:50)
[2017-01-28] MEDS ORDERED: SNTO30 EXT (09:50)
--- NOTE | 2017-01-28 10:02 | Discharge Instructions ---
Discharge Instructions Date of Service Jan 28, 2017. Admission Reason for Admission: Unstable Angina Pectoris Discharge Discharge Diagnosis / Problem: Angina Discharge Goals Goal(s): Decrease discomfort, Diagnostic testing, Therapeutic intervention Activity Recommendations Activity Level: Assistance Required Therapies: Physical Therapy, Occupational Therapy . Additional Information Patient informed of condition: Yes Advance Directives: Yes DNR: No Level of Care: Skilled Communicable Disease: No Prognosis: Stable Hill Catheter: No Instructions / Follow-Up Instructions / Follow-Up The patient was admitted with chest pain at rest. The patient was initially admitted to telemetry for cardiac monitoring, which did not reveal any acute events or arrhythmias. Her cardiac enzymes remained negative. There were no ischemic changes on EKG. Cardiology was consulted. The patient's Imdur dosing was divided into BID dosing for better coverage throughout the day, and her metoprolol was increased. The patient has been stable and chest pain free. She was denied to return to [facility] for rehab, but approved for SNF. Medications: *Imdur changed to 60 mg PO BID. *Metoprolol succinate increased to 50 mg PO qam and 25 mg PO qpm. *Discharged with Santyl to apply to open wound on right leg daily per wound care notes. *Continue other home medications as prescribed. Recommendations: *Continue physical and occupational therapy. Follow up: *Follow up with wound care clinic at first available appointment. Patient had been scheduled for an appointment on 01/28. *Follow up with primary care provider within 1 week of discharge regarding hospital stay and changes to medications. *Continue following up with infectious disease. Pt last seen 01/22, supposed to follow up with Dr. Perez in 2 weeks. Please seek medical attention if the patient experiences fevers, chills, sweats , dizziness/lightheadedness, chest pain, shortness of breath, nausea, vomiting, numbness, tingling, or if the RLE wounds become more red, swollen, warm, or tender. Current Hospital Diet Patient's current hospital diet: AHA Diet (Heart Healthy) Discharge Diet Recommended Diet: AHA Diet (Heart Healthy), Low Sodium Diet (2gm Na) Pending Studies Studies pending at discharge: no Physician Orders On Transfer Special Precautions: Fall precautions Dressing Changes: Daily dressing changes to RLE. Santyl should be applied to open areas daily before covering in dressing. IV Therapy: Rocephin 1 gm IV qd via PICC Vital Signs: Routine Weigh: Daily due to history of CHF Additional Orders: Follow up with wound care clinic for debridement at first available appointment Medical Emergencies . Who to Call and When: Medical Emergencies: If at any time you feel your situation is an emergency, please call 911 immediately. . Non-Emergent Contact Non-Emergency issues call your: Primary Care Provider Call Non-Emergent contact if: you have a fever, your pain is not controlled, your pain is worsening, your pain is unusual for you, your pain is concerning you, wound has increased drainage, wound has increased redness, wound has increased pain, you have any medication questions . Past History Medical & Surgical History: (1) Chest pain . "Provider Documentation" section prepared by Yue Salazar. . Core Measure Problem Core Measures: None
--- NOTE | 2017-01-28 10:15 | Discharge Summary ---
Discharge Summary Date of Service Jan 28, 2017. Discharge Summary Admission Date: Jan 25, 2017 at 16:33 Discharge Date: Jan 28, 2017 Discharge Disposition: [facility] facility ([place]) Principal Diagnosis: Chest pain Immunizations: Have You Had Influenza Vaccine: Yes Influenza Vaccine Date: Jan 01, 2013 History of Tetanus Vaccine?: UTD History of Pneumococcal: Yes Pneumococcal Date: May 03, 2011 History of Hepatitis B Vaccine: No Consultations: Cardiology--Dr. Clark Medication Reconciliation New Medications: Collagenase (Santyl) 250 Unit/Gm Oin 1 APPLN EXT DAILY for 30 Days, #1 TUBE Apply to open wounds on right leg daily Isosorbide Mononitrate (Isosorbide Mononitrate ER) 60 Mg Tab 60 MG PO BID for 60 Days, #120 TAB Metoprolol Succinate (Metoprolol Succinate ER) 25 Mg Tabcr 25 MG PO PM for 30 Days, #30 TABS Continued Medications: Acetaminophen (Apap Extra Strength) 500 Mg Tab 500 MG PO Q4 PRN for Pain or Fever Amlodipine Besylate (Norvasc) 5 Mg Tab 5 MG PO BID, TAB Ceftriaxone Sodium (Rocephin) 1 Gm Inj 1 GM IV DAILY for 6 Days, #6 DOSE Clopidogrel (Plavix) 75 Mg Tab 75 MG PO DAILY, TAB Docusate Sodium (Docusate Sodium) 100 Mg Cap 100 MG PO BID for 7 Days, CAP Eucerin (Hydrocerin) 360 Appln/120 Gm Cr 1 APPLN EXT BID PRN for DRYNESS for 30 Days Ferrous Sulfate (Ferrous Sulfate) 325 Mg Tab 325 MG PO BIDM for 30 Days, TAB Furosemide (Lasix) 40 Mg Tab 40 MG PO DAILY for 30 Days, #30 TAB Furosemide (Lasix) 20 Mg Tab 20 MG PO q1500 for 30 Days, TAB Gabapentin (Gabapentin) 300 Mg Cap 600 MG PO TID, #720 Lidocaine (Lidoderm Patch 5%) 1 Ea Tdsy 1 PATCH TD ONAMOFFPM to rt ankle Metoprolol Succinate (Metoprolol Succinate ER) 50 Mg Tabcr 50 MG PO DAILY for 30 Days, #30 TABS Multivitamins/Minerals (Mvi With Minerals) Tab 1 TAB PO DAILY, TAB Ensure no Vitamin K in this multivitamin Nitroglycerin (Nitrostat) 0.4 Mg/1 Tab Subl 0.4 MG SL UD PRN for Chest Pain for 30 Days Oxcarbazepine (Trileptal) 150 Mg Tab 150 MG PO QID, 0 Refills Oxycodone Ir (Roxicodone Ir) 5 Mg Tab 1 TAB PO Q4H PRN for mod-svr pain for 3 Days, #12 TAB Pantoprazole (Protonix) 40 Mg Tab 40 MG PO DAILYBB, #30 TAB Polyethylene Glycol 3350 (Miralax) 1 Pow Pow 17 GM PO DAILY PRN for Constipation, #527 GM Potassium Ext Rel (Klor-Con) 20 Meq Tabcr 20 MEQ PO BID for 30 Days, #60 TAB Ranolazine (Ranexa) 500 Mg Tab 500 MG PO BID Tramadol Hcl (Ultram) 50 Mg Tab 50 MG PO Q4H PRN for Moderate Pain for 3 Days, #12 TAB PRN PAIN Warfarin Sod (Coumadin) 5 Mg Tab 5 MG PO DAILY@16 for 30 Days, #30 TAB Discontinued Medications: Isosorbide Mononitrate (Isosorbide Mononitrate ER) 60 Mg Tab 120 MG PO QAM for 30 Days, #60 TAB Referrals At Discharge Follow up Referrals: Physician Referral - First Available with Adria Montgomery, DO Discharge Exam The patient reports feeling well. She complains of a 5/10 dull pain in her RLE. She denies any chest pain. The patient denies fevers, chills, sweats, chest pain, palpitations, claudication, cough, wheezing, shortness of breath, nausea, vomiting, abdominal pain, dysuria, hematuria, urinary retention, paralysis, weakness, numbness and tingling. Review of Systems: Constitutional: No fever, No chills, No sweats Eyes: No worsening of vision, No eye pain, No diplopia ENT: No hearing loss, No sore throat, No trouble swallowing Respiratory: No cough, No wheezing, No shortness of breath Cardiovascular: No chest pain, No claudication, No palpitations Abdomen: No pain, No nausea, No vomiting Musculoskeletal: + swelling, + problem reported (RLE pain), No joint pain, No muscle pain Genitourinary - Female: No dysuria, No urinary retention, No hematuria Neurologic: No paralysis, No weakness, No numbness/tingling Integumentary: No rash, No itch, No color change Physical Exam: General Appearance: WD/WN, no apparent distress, + obese Eyes: normal inspection, PERRL, EOMI ENT: normal ENT inspection, hearing grossly normal, pharynx normal Neck: supple, no JVD, trachea midline Respiratory/Chest: lungs clear, normal breath sounds, no respiratory distress Cardiovascular: regular rate, rhythm, no gallop, + systolic murmur Abdomen / GI: normal bowel sounds, non tender, soft, + pertinent finding ( ileostomy RLQ) Extremities: no calf tenderness, normal capillary refill, + swelling (1+ pitting edema RLE), + pertinent finding (open wounds RLE) Neurologic/Psychiatric: alert, normal mood/affect, oriented x 3 Skin: normal color, warm/dry, no rash Hospital Course 86 y/o female with a history of chronic diastolic CHF, CAD s/p stents, HTN, HLD , 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 Unstable Angina/CAD--stable -Admit to med/surg -Serial troponin negative -Cardiology consulted, appreciate recs: Change Imdur to 60 mg PO BID. Increase Toprol XL to 50 mg PO qam and 25 mg PO qpm. Could try Toprol XL 50 mg PO BID -Continue Ranexa 500 mg PO BID -HR has been low 60s, will hold off on increasing Toprol to 50 mg PO BID for now. Keep current dose. -Continue nitro prn Cellulitis of the right lower extremity, open wounds RLE--improving -Continue daily Rocephin, can continue at SNF -Continue infectious disease follow up -Wound care consult -Pt scheduled for an appt w/wound care clinic on 01/28. Will need to reschedule for debridement. Continue Santyl and daily dressing changes Pleural effusion on X ray, chronic diastolic CHF - Fluid overload may be contributing to chest pain due to some demand ischemia - BNP - elevated but improved compared to previous admission for acute CHF - Continue home dose of Lasix 40 mg PO qam and 20 mg PO at 1500 - Extra dose of PO Lasix given on 01/24, no real diuresis Hx of DVT/ PE - Continue warfarin 5 mg PO qd - INR 1.9 - SCDs HTN - Continue amlodipine 5 mg PO BID, Toprol XL 50 mg PO qam and 25 mg PO hs Trigeminal neuralgia - Continue oxcarbazepine 150 mg PO QID Dispo -Pt from [facility]. Stable for discharge. Denied for acute rehab but approved for SNF Total Time Spent: Greater than 30 minutes This includes examination of the patient, discharge planning, medication reconciliation, and communication with other providers. Discharge Instructions Please refer to the electronic Patient Visit Report (Discharge Instructions) for additional information. Additional Copies To Julius Zamora M.D.; [facility] at [facility]
[2017-01-28 12:31] VITALS: BP 150/90; PULSE 69; TEMP 36.8; O2SAT 91
== END 2017-01-28 13:52 | DRG 303 ==
LOC: EDBD 08:05 → C.EDA 08:06 → C.2E 12:06 → ENRESERV 12:29 → C.MS4W 01-25 09:37 → OBSVTOIN 01-25 16:33
PROVIDERS: ADMIT Family Medicine; ATTEND Family Medicine
DX: I25.110 Atherosclerotic heart disease of native coronary artery with unstable angina pectoris (principal); I50.32 Chronic diastolic (congestive) heart failure; L03.115 Cellulitis of right lower limb; I13.0 Hypertensive heart and chronic kidney disease with heart failure and stage 1 through stage 4 chronic kidney disease, or unspecified chronic kidney disease; I24.8 Other forms of acute ischemic heart disease; N17.9 Acute kidney failure, unspecified; Z95.0 Presence of cardiac pacemaker; I71.4 Abdominal aortic aneurysm, without rupture; Z86.711 Personal history of pulmonary embolism; Z86.718 Personal history of other venous thrombosis and embolism; Z95.5 Presence of coronary angioplasty implant and graft; G50.0 Trigeminal neuralgia; N18.3 Chronic kidney disease, stage 3 (moderate); Z93.2 Ileostomy status; Z95.828 Presence of other vascular implants and grafts; R79.1 Abnormal coagulation profile

== ENCOUNTER → 2017-01-29 | Outpatient (CLI) | payer BC ==
[~2017-01-29] MED LIST changes: -BISA1SUP4 PR; -CEFT1INJ57 IV; +DOCU100C31 PO; -MOML PO; -SALI0.6510 NAE; +SNTO30 EXT; -SODIENE PR; +TPRSR25 PO
[2017-01-29 10:51] LABS: INR 1.7 (0.9-1.1); PROTHROMBIN TIME (PATIENT) 18.4 SECONDS (9.0-12.0)
== END | disposition home or self-care (01) ==
LOC: C.LABVPSUA 10:21
PROVIDERS: ATTEND Internal Medicine Critical Care Medicine
DX: I82.409 Acute embolism and thrombosis of unspecified deep veins of unspecified lower extremity (principal); I26.99 Other pulmonary embolism without acute cor pulmonale

== ENCOUNTER → 2017-01-31 | Outpatient (CLI) | payer BC ==
[~2017-01-31] MED LIST changes: +METO-217 PO; +WARF5TAB90 PO; +WARF7.5T PO
[2017-01-31 10:05] LABS: INR 1.7 (0.9-1.1); PROTHROMBIN TIME (PATIENT) 18.1 SECONDS (9.0-12.0)
== END | disposition home or self-care (01) ==
LOC: C.LABVPSUA 09:05
PROVIDERS: ATTEND Internal Medicine Critical Care Medicine
DX: I82.409 Acute embolism and thrombosis of unspecified deep veins of unspecified lower extremity (principal)

== ENCOUNTER → 2017-02-05 | Outpatient (CLI) | payer BC ==
[2017-02-05 09:37] LABS: INR 1.8 (0.9-1.1); PROTHROMBIN TIME (PATIENT) 19.2 SECONDS (9.0-12.0)
== END | disposition home or self-care (01) ==
LOC: C.LABVPSUA 09:09
PROVIDERS: ATTEND Internal Medicine Critical Care Medicine
DX: Z79.01 Long term (current) use of anticoagulants (principal)

== ENCOUNTER → 2017-02-12 | Outpatient (CLI) | payer BC ==
[~2017-02-12] MED LIST changes: +AMOX875T PO; +CDXG40WC TOP; -CMD5 PO; +DOXY-300 PO; +FURO40TA3 PO; +PHYT100T PO; +SODI1TAB PO; -TPRSR50 PO; +TRAM-10 PO; +WARF6TAB PO
[2017-02-12 14:24] LABS: BASO % 0.5 %; BASO ABS # 0.03 K/uL (0-0.2); COMPLETE YES; EOS % 5.5 %; HEMATOCRIT 34.3 % (37-47); IG% 0.2 %; LYMPH % 32.4 %; LYMPH ABS # 2.08 K/uL (1.2-3.4); MEAN CELL VOLUME 89.1 fL (80-100); MEAN CORPUSCULAR HEMOGLOBIN 28.3 pg (25-34); MEAN CORPUSCULAR HGB CONC 31.8 g/dl (32-36); MEAN PLATELET VOLUME 9.8 fL (7.4-10.4); MONO % 8.7 %; NEUT % 52.7 %; PLATELET COUNT 205 K/uL (130-400); RED BLOOD COUNT 3.85 M/uL (4.2-5.4); WHITE BLOOD COUNT 6.41 K/uL (4.8-10.8)
[2017-02-12 14:30] LABS: INR 2.7 (0.9-1.1); PROTHROMBIN TIME (PATIENT) 29.6 SECONDS (9.0-12.0)
[2017-02-12 14:31] LABS: ALT/SGPT 17 U/L (12-78); BLOOD UREA NITROGEN 30 mg/dl (7-18); BUN/CREATININE RATIO 27.5 (10-20); CALCIUM 9.6 mg/dl (8.5-10.1); CARBON DIOXIDE 28 mmol/L (21-32); CHLORIDE 105 mmol/L (98-107); GLUCOSE 81 mg/dl (70-99); POTASSIUM 4.5 mmol/L (3.5-5.1); SODIUM 139 mmol/L (136-145)
[2017-02-12 14:34] LABS: ALB/GLOB RATIO 0.7 (0.9-2); ALKALINE PHOSPHATASE 104 U/L (45-117); AST/SGOT 21 U/L (15-37)
== END | disposition home or self-care (01) ==
LOC: C.LABSPEC 14:06
PROVIDERS: ATTEND Internal Medicine Infectious Disease
DX: Z01.89 Encounter for other specified special examinations (principal)

== ENCOUNTER → 2017-03-03 | Outpatient (CLI) | payer BC ==
[~2017-03-03] MED LIST changes: -DOCU100C31 PO; -ECRCR EXT; -FRS/40 PO; -FURO-85 PO; -NF656 TD; -POLY335019 PO; -TPRSR25 PO; -ULT/50 PO; -WARF5TAB90 PO; -WARF7.5T PO
[2017-03-03 11:59] LABS: BASO % 0.5 %; BASO ABS # 0.03 K/uL (0-0.2); COMPLETE YES; EOS % 3.3 %; IG% 0.2 %; LYMPH % 29.7 %; LYMPH ABS # 1.64 K/uL (1.2-3.4); MEAN CELL VOLUME 89.4 fL (80-100); MEAN CORPUSCULAR HEMOGLOBIN 28.3 pg (25-34); MEAN CORPUSCULAR HGB CONC 31.6 g/dl (32-36); MEAN PLATELET VOLUME 10.2 fL (7.4-10.4); MONO % 11.4 %; NEUT % 54.9 %; PLATELET COUNT 194 K/uL (130-400); RED BLOOD COUNT 4.14 M/uL (4.2-5.4); WHITE BLOOD COUNT 5.52 K/uL (4.8-10.8)
[2017-03-03 12:08] LABS: ALT/SGPT 22 U/L (12-78); AST/SGOT 27 U/L (15-37); BLOOD UREA NITROGEN 23 mg/dl (7-18); BUN/CREATININE RATIO 20.8 (10-20); CALCIUM 9.3 mg/dl (8.5-10.1); CARBON DIOXIDE 25 mmol/L (21-32); CHLORIDE 106 mmol/L (98-107); CREATININE 1.09 mg/dl (0.60-1.20); GLUCOSE 96 mg/dl (70-99); POTASSIUM 4.3 mmol/L (3.5-5.1); SODIUM 140 mmol/L (136-145)
[2017-03-03 12:11] LABS: ALB/GLOB RATIO 0.6 (0.9-2); ALKALINE PHOSPHATASE 116 U/L (45-117)
== END | disposition home or self-care (01) ==
LOC: C.LABSPEC 11:04
PROVIDERS: ATTEND Internal Medicine Infectious Disease
DX: Z79.2 Long term (current) use of antibiotics (principal)

== ENCOUNTER → 2017-06-12 | Outpatient (CLI) | payer BC ==
[~2017-06-12] MED LIST changes: -CDXG40WC TOP; -CEFT1INJ26 IV; -DOXY-300 PO; +DXY100 PO; +FERR1TAB13 PO; -FRRS300 PO; +GABA-1219 PO; -GABA1CAP4 PO; -IMDSR60 PO; +ISOS60TA25 PO; +KLN5X PO; +LAMO25TA PO; -OXCA150T2 PO; -OXYC1TAB3 PO; -POTA20TA16 PO; -SNTO30 EXT; +WARF3TAB6 PO
[2017-06-12 15:59] LABS: HEMATOCRIT 41.5 % (37-47); HEMOGLOBIN 13.9 g/dL (12.0-16.0); MEAN CELL VOLUME 89.8 fL (80-100); MEAN CORPUSCULAR HEMOGLOBIN 30.1 pg (25-34); MEAN CORPUSCULAR HGB CONC 33.5 g/dl (32-36); MEAN PLATELET VOLUME 10.6 fL (7.4-10.4); PLATELET COUNT 200 K/uL (130-400); RED CELL DISTRIBUTION WIDTH CV 14.7 % (11.5-14.5); RED CELL DISTRIBUTION WIDTH SD 47.7 fL (36.4-46.3); WHITE BLOOD COUNT 6.84 K/uL (4.8-10.8)
[2017-06-12 16:33] LABS: ALBUMIN 3.6 gm/dl (3.4-5.0); BLOOD UREA NITROGEN 34 mg/dl (7-18); CARBON DIOXIDE 27 mmol/L (21-32); CREATININE 1.17 mg/dl (0.60-1.20); GLUCOSE 85 mg/dl (70-99); PHOSPHORUS 3.5 mg/dl (2.5-4.9); POTASSIUM 4.4 mmol/L (3.5-5.1); SODIUM 138 mmol/L (136-145)
== END | disposition home or self-care (01) ==
LOC: C.LAB1850 14:55
PROVIDERS: ATTEND Internal Medicine Nephrology
DX: I12.9 Hypertensive chronic kidney disease with stage 1 through stage 4 chronic kidney disease, or unspecified chronic kidney disease (principal); E87.1 Hypo-osmolality and hyponatremia; N18.2 Chronic kidney disease, stage 2 (mild); E55.9 Vitamin D deficiency, unspecified

== ENCOUNTER → 2017-06-12 | Outpatient (CLI) | payer BC ==
--- NOTE | 2017-06-13 14:43 | MAMMOGRAPHY REPORT ---
BILATERAL DIGITAL SCREENING MAMMOGRAM TOMOSYNTHESIS WITH CAD: 06/12/2017 CLINICAL HISTORY: Asymptomatic. Personal history of breast cancer. TECHNIQUE: Breast tomosynthesis in addition to standard 2D mammography was performed. Current study was also evaluated with a Computer Aided Detection (CAD) system. COMPARISON: Comparison is made to exams dated: 04/30/2016 mammogram, 04/27/2014 mammogram, 04/26/2013 [facility] mogram, 04/23/2012 mammogram, 11/21/2011 mammogram, and 03/28/2011 mammogram - [facility] BREAST COMPOSITION: There are scattered areas of fibroglandular density in both breasts. FINDINGS: There is mild diffuse skin thickening of the left breast, that appears similar to prior [facility] mograms dating back to approximately 2008. There are tortuous and mildly ectatic vessels throughout the left breast, asymmetric compared to the right, but also stable dating back to at least 2010, poss ibly related to prior treatment. There are moderate vascular calcifications and numerous benign rim calcifications bilaterally. Stable postsurgical changes in the left lower inner quadrant, with surgi lester clips remaining in place. No new suspicious mass, architectural distortion or cluster of microca lcifications is seen. IMPRESSION: ACR BI-RADS CATEGORY 1: NEGATIVE There is no mammographic evidence of malignancy. A 1 year screening mammogram is recommended. The pa tient will receive written notification of the results. Approximately 10% of breast cancers are not detected with mammography. A negative mammographic report should not delay biopsy if a clinically suggestive mass is present. Malena Willard M.D. ay/:06/12/2017 19:31:23 Legal Mediator: Darlene Smith, [facility] letter sent: Normal 1/2 BI-RADS Code: ACR BI-RADS Category 1: Negative
== END | disposition home or self-care (01) ==
LOC: C.MAMM 14:18
PROVIDERS: ATTEND Family Medicine
DX: Z12.31 Encounter for screening mammogram for malignant neoplasm of breast (principal); Z85.3 Personal history of malignant neoplasm of breast; I12.9 Hypertensive chronic kidney disease with stage 1 through stage 4 chronic kidney disease, or unspecified chronic kidney disease; E87.1 Hypo-osmolality and hyponatremia; N18.2 Chronic kidney disease, stage 2 (mild); E55.9 Vitamin D deficiency, unspecified; Z51.81 Encounter for therapeutic drug level monitoring; Z79.01 Long term (current) use of anticoagulants; Z86.718 Personal history of other venous thrombosis and embolism

== ENCOUNTER → 2017-07-23 | Outpatient (CLI) | payer BC ==
[~2017-07-23] MED LIST changes: -AMOX875T PO; +CEPH500C2 PO; -DXY100 PO; -LAMO25TA PO; +OXCA150T2 PO
--- NOTE | 2017-07-23 15:48 | DIAGNOSTIC IMAGING REPORT ---
CHEST 2 VIEWS ROUTINE CLINICAL HISTORY: 87 years-old Female presenting with SHORTNESS OF BREATH, COUGH, BILATERAL RALES. TECHNIQUE: PA and lateral views of the chest were obtained. COMPARISON: 01/23/2017. FINDINGS: Right subclavian pacer with leads to the right atrium and right ventricular apex. Atherosclerosis of aortic arch. Chronic silhouette moderately enlarged. Chronic elevation of the right hemidiaphragm. Mildly prominent lung markings. No focal opacity. No large effusion or pneumothorax. Postsurgical changes of reverse right shoulder arthroplasty. Partially visualized IVC filter. IMPRESSION: 1. Cardiomegaly. Otherwise no acute cardiopulmonary disease. Electronically signed by: David Land M.D. 07/23/2017 3:47 PM Dictated Date/Time: 07/23/2017 3:46 PM
== END | disposition home or self-care (01) ==
LOC: C.RAD 15:00
PROVIDERS: ATTEND Physician Assistant
DX: R06.02 Shortness of breath (principal); R05 Cough; R09.89 Other specified symptoms and signs involving the circulatory and respiratory systems; I51.7 Cardiomegaly

== ENCOUNTER → 2017-07-25 | Outpatient (CLI) | payer BC ==
[2017-07-25 12:26] LABS: BASO % 0.3 %; BASO ABS # 0.02 K/uL (0-0.2); EOS % 2.7 %; EOS ABS # 0.17 K/uL (0-0.5); HEMATOCRIT 41.3 % (37-47); HEMOGLOBIN 13.3 g/dL (12.0-16.0); IG# 0.01 K/uL (0.00-0.02); LYMPH % 19.4 %; LYMPH ABS # 1.24 K/uL (1.2-3.4); MEAN CELL VOLUME 94.7 fL (80-100); MEAN CORPUSCULAR HEMOGLOBIN 30.5 pg (25-34); MEAN CORPUSCULAR HGB CONC 32.2 g/dl (32-36); MEAN PLATELET VOLUME 10.2 fL (7.4-10.4); MONO % 9.9 %; MONO ABS # 0.63 K/uL (0.11-0.59); NEUT % 67.5 %; NEUT ABS # 4.31 K/uL (1.4-6.5); PLATELET COUNT 151 K/uL (130-400); RED CELL DISTRIBUTION WIDTH CV 14.3 % (11.5-14.5); RED CELL DISTRIBUTION WIDTH SD 49.3 fL (36.4-46.3); WHITE BLOOD COUNT 6.38 K/uL (4.8-10.8)
[2017-07-25 15:38] LABS: BLOOD UREA NITROGEN 25 mg/dl (7-18); CALCIUM 9.2 mg/dl (8.5-10.1); CARBON DIOXIDE 27 mmol/L (21-32); CREATININE 1.04 mg/dl (0.60-1.20); GLUCOSE 68 mg/dl (70-99); SODIUM 141 mmol/L (136-145)
== END | disposition home or self-care (01) ==
LOC: C.LAB 09:47
PROVIDERS: ATTEND Physician Assistant
DX: R06.02 Shortness of breath (principal); R05 Cough; I20.9 Angina pectoris, unspecified

== ENCOUNTER → 2017-12-11 | Outpatient (CLI) | payer BC ==
[~2017-12-11] MED LIST changes: -CEPH500C2 PO; +EPP3 INJ; +ERGO500011 PO; -FERR1TAB13 PO; -GABA-1219 PO; +GABA-1220 PO; -METO-217 PO; -OXCA150T2 PO; +OXCA300T PO; +TPRSR/25 PO; -TRAM-10 PO; -WARF3TAB6 PO; +ZNT150 PO
[2017-12-11 12:08] LABS: BASO % 0.4 %; BASO ABS # 0.02 K/uL (0-0.2); EOS % 2.9 %; EOS ABS # 0.16 K/uL (0-0.5); HEMATOCRIT 39.9 % (37-47); HEMOGLOBIN 12.9 g/dL (12.0-16.0); IG# 0.01 K/uL (0.00-0.02); LYMPH % 23.5 %; LYMPH ABS # 1.28 K/uL (1.2-3.4); MEAN CELL VOLUME 94.8 fL (80-100); MEAN CORPUSCULAR HEMOGLOBIN 30.6 pg (25-34); MEAN CORPUSCULAR HGB CONC 32.3 g/dl (32-36); MEAN PLATELET VOLUME 10.4 fL (7.4-10.4); MONO % 8.5 %; MONO ABS # 0.46 K/uL (0.11-0.59); NEUT % 64.5 %; NEUT ABS # 3.51 K/uL (1.4-6.5); PLATELET COUNT 184 K/uL (130-400); RED CELL DISTRIBUTION WIDTH CV 13.5 % (11.5-14.5); RED CELL DISTRIBUTION WIDTH SD 46.6 fL (36.4-46.3); WHITE BLOOD COUNT 5.44 K/uL (4.8-10.8)
[2017-12-11 12:51] LABS: ALBUMIN 3.6 gm/dl (3.4-5.0); BLOOD UREA NITROGEN 33 mg/dl (7-18); CALCIUM 9.5 mg/dl (8.5-10.1); CARBON DIOXIDE 27 mmol/L (21-32); CREATININE 1.13 mg/dl (0.60-1.20); GLUCOSE 90 mg/dl (70-99); PHOSPHORUS 3.5 mg/dl (2.5-4.9); POTASSIUM 4.5 mmol/L (3.5-5.1); SODIUM 138 mmol/L (136-145)
== END | disposition home or self-care (01) ==
LOC: C.LAB1850 10:52
PROVIDERS: ATTEND Physician Assistant
DX: I10 Essential (primary) hypertension (principal); E87.1 Hypo-osmolality and hyponatremia; E55.9 Vitamin D deficiency, unspecified; R26.89 Other abnormalities of gait and mobility; R41.3 Other amnesia

== ENCOUNTER 2018-07-28 13:20 | Inpatient (IN) ==
[2018-07-28] MEDS ORDERED: ASPIRIN CHEW 324 MG PO STA (13:35)
[2018-07-28 14:53] LABS: Basophils # (auto) 0.02 K/uL (0-0.2); Basophils % (auto) 0.4 %; Eosinophils # (auto) 0.11 K/uL (0-0.5); Eosinophils % (auto) 2.4 %; Hematocrit (blood only) 39.9 % (37-47); Hemoglobin 13.4 g/dL (12.0-16.0); Immature Granulocytes # (auto) 0.01 K/uL (0.00-0.02); Immature Granulocytes % (auto) 0.2 %; Lymphocytes # (auto) 1.39 K/uL (1.2-3.4); Lymphocytes % (auto) 29.8 %; Mean Corpuscular Hgb Conc 33.6 g/dL (32-36); Mean Corpuscular Volume 91.3 fL (80-100); Mean Platelet Volume 10.2 fL (7.4-10.4); Monocytes # (auto) 0.43 K/uL (0.11-0.59); Monocytes % (auto) 9.2 %; Neutrophils # (auto) 2.71 K/uL (1.4-6.5); Platelet Count 200 K/uL (130-400); RDW Coefficient of Variation 13.5 % (11.5-14.5); Red Blood Count 4.37 M/uL (4.2-5.4); White Blood Count 4.67 K/uL (4.8-10.8)
[2018-07-28 15:05] LABS: INR 2.8 (0.9-1.1); Partial Thromboplastin Ratio 1.2; Partial Thromboplastin Time 32.9 Seconds (21.0-31.0); Prothrombin Time 26.4 Seconds (9.0-12.0)
--- NOTE | 2018-07-28 15:12 | XRay Report ---
XR chest 2V routine CLINICAL HISTORY: Chest Pain dyspnea COMPARISON STUDY: 11/15/2017 FINDINGS: Interval development of left basilar atelectatic/infiltrative change additional interstitia l infiltrative change right base.. These findings are superimposed upon pre-existing baseline parench ymal fibrotic change. Upper lungs are considered clear. IMPRESSION: Mild bibasilar interstitial infiltrative-type change. Mild stable cardiomegaly. The above report was generated using voice recognition software. It may contain grammatical, syntax or spelling errors. Electronically signed by: Adria Smiley M.D. 07/28/2018 3:11 PM
[2018-07-28 15:13] LABS: BUN Creatinine Ratio 25.7 (10-20); Blood Urea Nitrogen 28 mg/dl (7-18); Calcium 9.6 mg/dl (8.5-10.1); Carbon Dioxide 27 mmol/L (21-32); Chloride 107 mmol/L (98-107); Est GFR (African American) 53.2; Est GFR (Non-African American) 45.9; Glucose 99 mg/dl (70-99); Potassium 3.7 mmol/L (3.5-5.1); Sodium 141 mmol/L (136-145)
[2018-07-28] MEDS ORDERED: NITROGLYCERIN SL 0.4 MG/TAB TAB ONE (15:16)
[2018-07-28 15:19] LABS: Troponin I 0.432 ng/ml (0-0.045)
[2018-07-28] MEDS: NITROGLYCERIN SL 0.4 MG/TAB TAB SL PRN ×2 (15:19→16:27)
[2018-07-28 15:37] LABS: Lyme Ab IgG w/WB Rflx Negative (Negative)
[2018-07-28 15:41] LABS: Lyme Ab IgM w/WB Rflx Equivocal (Negative)
[2018-07-28] MEDS ORDERED: NITROGLYCERIN 2% OINTMENT 30GM TUBE EXT ONE (16:08)
--- NOTE | 2018-07-28 17:10 | History & Physical Report ---
Date of Service July 28, 2018 Assessment & Plan (1) Chest pain: Uncertain etiology, ACS vs AAA change vs PNA Resolving with nitro but returning Trop elevated to 0.432, serials pending ECHO pending Abd US pending, rupture/tear unlikely given VSS and Hb stable Ceftriaxone for PNA noted on CXR however this does not seem substantial enough to cause sx described Lyme pending EKG is paced Follows with Dr. Clark, c/s pending Nitro paste PE unlikely given therapeutic on coumadin (2) Hypertension: continue home meds (3) Ulcerative colitis: continue home meds (4) Acute on chronic diastolic (congestive) heart failure: continue home meds (5) Aneurysm of infrarenal abdominal aorta: Monitored Q6m with US, next was scheduled for later this month Ordering now as part of workup from above Hb is stable, VSS, and CXR not suggestive of rupture Follows with Dr. Martinez if needed States last imaging was 6mm, not in our system (6) CAD (coronary artery disease): Hx of stents Last cath 2017 (7) PE (pulmonary embolism): Hx of PE/DVT On coumadin Follows with coag clinic (8) DVT prophylaxis: Therapeutic on coumadin History of Present Illness Primary Care Provider: Julius Zamora MD 88 y/o F c/o chest pain. Pt states that she has been requiring nitro multiple times a day for the last several weeks. Over the last few days, she has needed to do multiple "cycles" of nitro to resolve her chest pain. Prior to coming to the ED she took 4-5 "cycles" of nitro, which is described as taking a nitro x3 [id number]. It does resolve after each cycle, but then comes back. Chest pain is substernal and goes mostly to her L shoulder and UE but does go to the R shoulder at times as well. She states that she is having worsening LUIS. She mostly cruises her furniture around her home or uses a walker and this is becoming a struggle for her recently. She has been eating without issue. Pt denies fever, abd pain, n/v/c/d, LE pain or swelling. Son has a photo of the basic report of pt's last cath in 2017. There are several areas noted with 100% blockage, several with 30-40% blockage. Pt follows with Dr. Martinez for an AAA. She states she has US monitoring Q6 months, next being due later this month. She states the last US measured her AAA at 6mm and stable. She has had no lightheadedness or dizziness with these sx. Allergies Allergy/AdvReac Type Severity Reaction Status Date / Time sodium lauryl sulfate Allergy Intermediate HIVES & Verified 07/28/18 17:13 WELTS bee venom protein (honey bee) Allergy Unknown ANAPHYLAXIS Verified 07/28/18 17:13 Home Medications Home Medications Medication Instructions Recorded Confirmed Type clonazepam 0.5 mg PO BID 01/16/18 07/28/18 History clopidogrel [Plavix] 75 mg PO DAILY 01/16/18 07/28/18 History epinephrine [EpiPen 2-Percy] 0.3 mg IM DIRECTED PRN 01/16/18 07/28/18 History ergocalciferol (vitamin D2) 50,000 unit PO MO 01/16/18 07/28/18 History [Drisdol] isosorbide mononitrate 60 mg PO BID 01/16/18 07/28/18 History metoprolol succinate [Toprol XL] 25 mg PO DAILY 01/16/18 07/28/18 History multivitamin with minerals 1 tab PO QPM 01/16/18 07/28/18 History nitroglycerin [Nitrostat] 0.4 mg SUBLINGUAL DIRECTED PRN 01/16/18 07/28/18 History oxcarbazepine [Trileptal] 300 mg PO QID 01/16/18 07/28/18 History pantoprazole [Protonix] 40 mg PO DAILY 01/16/18 07/28/18 History ranolazine [Ranexa] 500 mg PO Q12H 01/16/18 07/28/18 History sodium chloride 1 g PO DAILY 01/16/18 07/28/18 History amlodipine 5 mg tablet 5 mg PO TID tab 05/07/18 07/28/18 History warfarin 6 mg tablet 6 mg PO DAILY tab 06/19/18 07/28/18 History acetaminophen [Tylenol] 325 - 650 mg PO Q4 PRN 07/28/18 07/28/18 History aluminum hydrox-magnesium carb 0 tab PO UD PRN 07/28/18 07/28/18 History [Gaviscon Extra Strength] furosemide [Lasix] 20 mg PO DAILY 07/28/18 07/28/18 History gabapentin [Neurontin] 200 mg PO TID 07/28/18 07/28/18 History tramadol 50 - 100 mg PO BID PRN 07/28/18 07/28/18 History Past Med/Surg History Medical History HTN (hypertension) (Chronic) Aortic aneurysm (Resolved) Pulmonary embolism (Resolved) Surgical History H/O cardiac catheterization (Resolved) Social History Preferred Language: Austrian Feels Safe at Home: Yes Smoking Status: Never smoker Hx Alcohol Use: Yes (rare, not recent) Hx Substance Use: No Review of Systems Pertinent positives and negatives reviewed in HPI--all others negative Physical Exam Vital Signs (Past 24 Hours): Last Vital Signs Temp 36.4 C L 07/28/18 13:22 Pulse 67 07/28/18 16:01 Resp 17 07/28/18 16:01 BP 150/109 H 07/28/18 16:01 Pulse Ox 91 07/28/18 16:47 Constitutional: WD/WN, vitals as above Eyes: normal visual de oliveira by confrontation and + anicteric sclerae Neck: normal visual inspection and trachea midline Respiratory: normal respiratory effort, lungs clear to auscultation Cardiovascular: Rate/Rhythm: regular rate and regular rhythm Murmur noted No abnormal abd sounds Gastrointestinal (Abdomen): Inspection/Auscultation: abdomen not distended Percussion/Palpation: abdomen soft; abdomen nontender Musculoskeletal: Head/Neck/Chest: normocephalic and head atraumatic negative for edema, peripheral pulses intact Skin: no rashes, warm and dry Neurologic: awake; not confused Speech / Cognition: normal speech Psychiatric: A+Ox3, euthymic affect Results & Data Diagnostic Findings CXR: bibasilar infiltrate ECG Additional Comments: Paced Code Status & VTE Plan Code Status Other: Full code, although pt states no prolonged mechanical life support, feeding tubes, etc. Son is present and agrees VTE Prophylaxis Plan VTE Prophylaxis will be ordered: Yes
--- NOTE | 2018-07-28 18:04 | Emergency Department Note ---
Entered by Rhonda Abdi acting as a scribe for Bobby Umana History of Present Illness General Chief complaint: Chest Pain Stated complaint: CHEST PAIN Time Seen by Provider: 07/28/18 13:27 Source: patient History of Present Illness Provider complaint: chest pain Onset (ago): hour(s) (this morning) Location: chest Pain Consistency: + intermittent Maximum Pain Intensity: 5 Quality: + other (pain) Associated symptoms: + denies other symptoms (denies abdominal pain) and + shortness of breath The patient is an 88 year old female who presents to the Emergency Room with complaints of intermittent chest pain beginning this morning. The patient rates her pain at a 5/10. She also reports having shortness of breath but denies having abdominal pain or a syncopal episode. The patient states that she called Dr. Dixon and was referred here. The patient states that she is on Coumadin and Plavix. She states that she has 2 cardiac stents and an ostomy bag. The patient states that she had an angiogram done in 2017 and reports a history of an aortic aneurysm. Patient's son is at bedside and states that during her last catheterization at [facility] she was told that no other stents or cardiac interventions could be taken if she was to be managed medically. Home Medications Home Medications Medication Instructions Recorded Confirmed Type clonazepam 0.5 mg PO BID 01/16/18 07/28/18 History clopidogrel [Plavix] 75 mg PO DAILY 01/16/18 07/28/18 History epinephrine [EpiPen 2-Percy] 0.3 mg IM DIRECTED PRN 01/16/18 07/28/18 History ergocalciferol (vitamin D2) 50,000 unit PO MO 01/16/18 07/28/18 History [Drisdol] isosorbide mononitrate 60 mg PO BID 01/16/18 07/28/18 History metoprolol succinate [Toprol XL] 25 mg PO DAILY 01/16/18 07/28/18 History multivitamin with minerals 1 tab PO QPM 01/16/18 07/28/18 History nitroglycerin [Nitrostat] 0.4 mg SUBLINGUAL DIRECTED PRN 01/16/18 07/28/18 History oxcarbazepine [Trileptal] 300 mg PO QID 01/16/18 07/28/18 History pantoprazole [Protonix] 40 mg PO DAILY 01/16/18 07/28/18 History ranolazine [Ranexa] 500 mg PO Q12H 01/16/18 07/28/18 History sodium chloride 1 g PO DAILY 01/16/18 07/28/18 History amlodipine 5 mg tablet 5 mg PO TID tab 05/07/18 07/28/18 History warfarin 6 mg tablet 6 mg PO DAILY tab 06/19/18 07/28/18 History acetaminophen [Tylenol] 325 - 650 mg PO Q4 PRN 07/28/18 07/28/18 History aluminum hydrox-magnesium carb 0 tab PO UD PRN 07/28/18 07/28/18 History [Gaviscon Extra Strength] furosemide [Lasix] 20 mg PO DAILY 07/28/18 07/28/18 History gabapentin [Neurontin] 200 mg PO TID 07/28/18 07/28/18 History tramadol 50 - 100 mg PO BID PRN 07/28/18 07/28/18 History Allergies Allergy/AdvReac Type Severity Reaction Status Date / Time sodium lauryl sulfate Allergy Intermediate HIVES & Verified 07/28/18 17:13 WELTS bee venom protein (honey bee) Allergy Unknown ANAPHYLAXIS Verified 07/28/18 17:13 Past Med/Surg History Medical History HTN (hypertension) (Chronic) Aortic aneurysm (Resolved) Pulmonary embolism (Resolved) Surgical History H/O cardiac catheterization (Resolved) Social History Preferred Language: Namibian Feels Safe at Home: Yes Smoking Status: Never smoker Hx Alcohol Use: Yes (rare, not recent) Hx Substance Use: No Review of Systems See HPI for pertinent positives & negatives. and A total of 10 systems reviewed and were otherwise negative Physical Exam Vital Signs Vital Signs - 24 hr 07/28/18 13:22 07/28/18 13:32 07/28/18 13:36 Temperature 36.4 C L Temperature Source Oral Sepsis Recent Fever Within 48 Hours No Sepsis New/Unexplained Change in Mental Status No Sepsis Action Taken by Nursing No Action Required Pulse Rate 115 H 63 73 Pulse Rate [Right Finger] Pulse Rate from SpO2 Sensor 63 67 Pulse Rhythm [Right Finger] Pulse Strength [Right Finger] Respiratory Rate 18 16 15 Respiratory Effort / Characteristics Non-Labored Respiratory Depth Normal Respiratory Pattern Blood Pressure 126/68 128/76 Blood Pressure [Left Arm] Blood Pressure Mean 87 93 Blood Pressure Mean [Left Arm] Blood Pressure Position Sitting Pulse Oximetry 100 95 95 Oxygen Delivery Method Room Air Oxygen Flow Rate 07/28/18 13:47 07/28/18 14:00 07/28/18 14:43 Temperature Temperature Source Sepsis Recent Fever Within 48 Hours Sepsis New/Unexplained Change in Mental Status Sepsis Action Taken by Nursing Pulse Rate 71 106 H 73 Pulse Rate [Right Finger] Pulse Rate from SpO2 Sensor 74 72 Pulse Rhythm [Right Finger] Pulse Strength [Right Finger] Respiratory Rate 18 19 Respiratory Effort / Characteristics Respiratory Depth Respiratory Pattern Blood Pressure 129/76 Blood Pressure [Left Arm] Blood Pressure Mean 93 Blood Pressure Mean [Left Arm] Blood Pressure Position Pulse Oximetry 92 92 94 Oxygen Delivery Method Room Air Oxygen Flow Rate 07/28/18 14:51 07/28/18 15:10 07/28/18 15:15 Temperature Temperature Source Sepsis Recent Fever Within 48 Hours Sepsis New/Unexplained Change in Mental Status Sepsis Action Taken by Nursing Pulse Rate 74 70 Pulse Rate [Right Finger] Pulse Rate from SpO2 Sensor 69 Pulse Rhythm [Right Finger] Pulse Strength [Right Finger] Respiratory Rate 19 13 Respiratory Effort / Characteristics Respiratory Depth Respiratory Pattern Blood Pressure 150/94 H Blood Pressure [Left Arm] Blood Pressure Mean 112 Blood Pressure Mean [Left Arm] Blood Pressure Position Pulse Oximetry 95 91 Oxygen Delivery Method Room Air Oxygen Flow Rate 07/28/18 15:18 07/28/18 15:20 07/28/18 15:21 Temperature Temperature Source Sepsis Recent Fever Within 48 Hours Sepsis New/Unexplained Change in Mental Status Sepsis Action Taken by Nursing Pulse Rate 80 Pulse Rate [Right Finger] 68 72 Pulse Rate from SpO2 Sensor 80 Pulse Rhythm [Right Finger] Regular Pulse Strength [Right Finger] Normal Respiratory Rate 18 18 7 L Respiratory Effort / Characteristics Non-Labored Respiratory Depth Normal Respiratory Pattern Regular Blood Pressure 129/92 Blood Pressure [Left Arm] 150/94 H 129/92 Blood Pressure Mean 104 Blood Pressure Mean [Left Arm] 112 104 Blood Pressure Position Pulse Oximetry 92 91 90 Oxygen Delivery Method Room Air Oxygen Flow Rate 07/28/18 15:29 07/28/18 15:30 07/28/18 15:32 Temperature Temperature Source Sepsis Recent Fever Within 48 Hours Sepsis New/Unexplained Change in Mental Status Sepsis Action Taken by Nursing Pulse Rate 70 71 71 Pulse Rate [Right Finger] Pulse Rate from SpO2 Sensor 70 70 70 Pulse Rhythm [Right Finger] Pulse Strength [Right Finger] Respiratory Rate 20 13 12 Respiratory Effort / Characteristics Respiratory Depth Respiratory Pattern Blood Pressure 139/84 137/96 Blood Pressure [Left Arm] Blood Pressure Mean 102 109 Blood Pressure Mean [Left Arm] Blood Pressure Position Pulse Oximetry 92 93 92 Oxygen Delivery Method Oxygen Flow Rate 07/28/18 16:01 07/28/18 16:30 07/28/18 16:31 Temperature Temperature Source Sepsis Recent Fever Within 48 Hours Sepsis New/Unexplained Change in Mental Status Sepsis Action Taken by Nursing Pulse Rate 67 73 72 Pulse Rate [Right Finger] Pulse Rate from SpO2 Sensor 68 73 72 Pulse Rhythm [Right Finger] Pulse Strength [Right Finger] Respiratory Rate 17 13 15 Respiratory Effort / Characteristics Respiratory Depth Respiratory Pattern Blood Pressure 150/109 H 142/99 H Blood Pressure [Left Arm] Blood Pressure Mean 122 113 Blood Pressure Mean [Left Arm] Blood Pressure Position Pulse Oximetry 90 92 91 Oxygen Delivery Method Oxygen Flow Rate 07/28/18 16:47 07/28/18 17:00 07/28/18 17:30 Temperature Temperature Source Sepsis Recent Fever Within 48 Hours Sepsis New/Unexplained Change in Mental Status Sepsis Action Taken by Nursing Pulse Rate 64 70 Pulse Rate [Right Finger] Pulse Rate from SpO2 Sensor 64 70 Pulse Rhythm [Right Finger] Pulse Strength [Right Finger] Respiratory Rate 20 23 Respiratory Effort / Characteristics Respiratory Depth Respiratory Pattern Blood Pressure 160/103 H Blood Pressure [Left Arm] Blood Pressure Mean 122 Blood Pressure Mean [Left Arm] Blood Pressure Position Pulse Oximetry 91 91 90 Oxygen Delivery Method Nasal Cannula Nasal Cannula Oxygen Flow Rate 1 3 07/28/18 17:31 Temperature Temperature Source Sepsis Recent Fever Within 48 Hours Sepsis New/Unexplained Change in Mental Status Sepsis Action Taken by Nursing Pulse Rate 68 Pulse Rate [Right Finger] Pulse Rate from SpO2 Sensor 70 Pulse Rhythm [Right Finger] Pulse Strength [Right Finger] Respiratory Rate 24 Respiratory Effort / Characteristics Respiratory Depth Respiratory Pattern Blood Pressure 155/114 H Blood Pressure [Left Arm] Blood Pressure Mean 127 Blood Pressure Mean [Left Arm] Blood Pressure Position Pulse Oximetry 91 Oxygen Delivery Method Oxygen Flow Rate GENERAL: She is oriented to person, place, and time. She appears well-developed and well-nourished. She does not appear distressed. ____ HENT: Exam performed. -Head: Normocephalic and atraumatic. - Right Ear: External ear normal. No mastoid tenderness. -Left Ear: External ear normal. No mastoid tenderness. -Mouth/Throat: The oropharynx is clear and moist. No trismus in the jaw. No dental abscesses or uvula swelling. No oropharyngeal exudate or tonsillar abscesses. ____ EYES: Conjunctivae and EOM are normal. Pupils are equal, round, and reactive to light. Right eye exhibits no discharge. Left eye exhibits no discharge. No scleral icterus. ____ NECK: Normal range of motion. Neck supple. No JVD present. No spinous process tenderness present. No carotid bruit present. No rigidity. No tracheal deviation and normal range of motion present. No Brudzinski's sign and no Kernig's sign n oted. ____ CV: Normal rate, regular rhythm, and intact distal pulses. Systolic murmur. There is no peripheral edema. Palpable radial pulses bue. ____ PULM/CHEST: Effort normal and breath sounds normal. No respiratory distress. No stridor. She has no wheezes. She has no rales. -Chest Wall: She exhibits no tenderness. ____ ABD: The abdomen is soft. Bowel sounds are normal. She has no distension. No mass is present. There is no tenderness. There is no rebound, no guarding, no Rodriges's sign and no tenderness at McBurney's point. Rovsig negative. Ostomy bag is present. MUSC/SKEL: Normal range of motion. There is no peripheral edema, tenderness or deformity. LYMPH: No cervical adenopathy. ____ NEURO: She is alert and oriented to person, place, and time. She has normal strength. No cranial nerve deficit or sensory deficit. Coordination and gait normal. GCS eye subscore is 4. GCS verbal subscore is 5. GCS motor subscore is 6. cerbellar tests wnl. ____ SKIN: Skin is warm and dry. She is not diaphoretic. Diffuse ecchymosis over the bilateral upper extremities. There is a tick embedded in her skin in the right upper extremity. PSYCH: She has a normal mood and affect. Her behavior is normal. Judgment and thought content normal. ____ Course 1332: The patient was evaluated in room C1B, and a complete history and physical examination were performed. 1516: The patient is actively having chest pain. Her vitals are stable. Patient will be given sublingual nitro. 1531: The patient's vitals are stable. She reports that her chest pain is a 3/10 status-post Nitroglycerin. Her troponin is elevated and higher than baseline. She was admitted to Dr. Mcgarry for an NSTEMI. No anticoagulation was given at this time as the patient's INR is therapeutic. I discussed the patient's case with Dr. Teri Barnes who will evaluate the patient for further management. Consultations Consultation #1: Dr. Teri Barnes Time: 15:29 Administered Medications Nitroglycerin (Nitrostat) 0.4 mg SL PRN PRN PRN Reason: Chest Pain Stop: 08/27/18 15:15 Last Admin: 07/28/18 16:27 Dose: 0.4 mg Documented by: [id number] Admin: 07/28/18 15:19 Dose: 0.4 mg Documented by: [id number] Discontinued Medications Aspirin (Aspirin) 324 mg PO NOW STA Stop: 07/28/18 13:36 Last Admin: 07/28/18 13:45 Dose: 324 mg Documented by: [id number] Nitroglycerin (Nitrostat) Confirm Administered Dose 0.4 mg .ROUTE .STK-MED ONE Stop: 07/28/18 15:17 Last Admin: 07/28/18 15:19 Dose: Not Given Documented by: [id number] Nitroglycerin (Nitro-Bid 2%) 1 inch EXT NOW ONE Stop: 07/28/18 16:09 Last Admin: 07/28/18 16:46 Dose: 1 inch Documented by: [id number] Medical Decision Making Medical Records Attestation: I reviewed the patient's medical records. Home Medications Current Medication List: was personally reviewed by me Laboratory Data Attestation: I reviewed the patient's lab results. Result diagrams: 07/28/18 14:41 07/28/18 14:41 Lab Results 07/28/18 07/28/18 07/28/18 Range/Units 14:41 14:41 14:41 WBC 4.67 L (4.8-10.8) K/uL RBC 4.37 (4.2-5.4) M/uL Hgb 13.4 (12.0-16.0) g/dL Hct 39.9 (37-47) % MCV 91.3 (80-100) fL MCH 30.7 (25-34) pg MCHC 33.6 (32-36) g/dL RDW Std Deviation 45.0 (36.4-46.3) fL RDW Coeff of Boy 13.5 (11.5-14.5) % Plt Count 200 (130-400) K/uL MPV 10.2 (7.4-10.4) fL Immature Gran % (Auto) 0.2 % Neut % (Auto) 58.0 % Lymph % (Auto) 29.8 % Evangeline % (Auto) 9.2 % Eos % (Auto) 2.4 % Baso % (Auto) 0.4 % Immature Gran # (Auto) 0.01 (0.00-0.02) K/uL Neut # (Auto) 2.71 (1.4-6.5) K/uL Lymph # (Auto) 1.39 (1.2-3.4) K/uL Evangeline # (Auto) 0.43 (0.11-0.59) K/uL Eos # (Auto) 0.11 (0-0.5) K/uL Baso # (Auto) 0.02 (0-0.2) K/uL PT 26.4 H (9.0-12.0) Seconds INR 2.8 H (0.9-1.1) APTT 32.9 H (21.0-31.0) Seconds PTT Ratio 1.2 Sodium 141 (136-145) mmol/L Potassium 3.7 (3.5-5.1) mmol/L Chloride 107 (98-107) mmol/L Carbon Dioxide 27 (21-32) mmol/L Anion Gap 7.0 (3-11) BUN 28 H (7-18) mg/dl Creatinine 1.09 (0.6-1.2) mg/dl Est Cr Clr Drug Dosing Not Reportable Est GFR ( Amer) 53.2 Est GFR (Non-Af Amer) 45.9 BUN/Creatinine Ratio 25.7 H (10-20) Glucose 99 (70-99) mg/dl Calcium 9.6 (8.5-10.1) mg/dl Troponin I 0.432 H* (0-0.045) ng/ml Lipase 90 (73-393) U/L Lyme Disease IgG Ab (Negative) Lyme Disease IgM Ab (Negative) 07/28/18 Range/Units 14:41 WBC (4.8-10.8) K/uL RBC (4.2-5.4) M/uL Hgb (12.0-16.0) g/dL Hct (37-47) % MCV (80-100) fL MCH (25-34) pg MCHC (32-36) g/dL RDW Std Deviation (36.4-46.3) fL RDW Coeff of Boy (11.5-14.5) % Plt Count (130-400) K/uL MPV (7.4-10.4) fL Immature Gran % (Auto) % Neut % (Auto) % Lymph % (Auto) % Evangeline % (Auto) % Eos % (Auto) % Baso % (Auto) % Immature Gran # (Auto) (0.00-0.02) K/uL Neut # (Auto) (1.4-6.5) K/uL Lymph # (Auto) (1.2-3.4) K/uL Evangeline # (Auto) (0.11-0.59) K/uL Eos # (Auto) (0-0.5) K/uL Baso # (Auto) (0-0.2) K/uL PT (9.0-12.0) Seconds INR (0.9-1.1) APTT (21.0-31.0) Seconds PTT Ratio Sodium (136-145) mmol/L Potassium (3.5-5.1) mmol/L Chloride (98-107) mmol/L Carbon Dioxide (21-32) mmol/L Anion Gap (3-11) BUN (7-18) mg/dl Creatinine (0.6-1.2) mg/dl Est Cr Clr Drug Dosing Est GFR ( Amer) Est GFR (Non-Af Amer) BUN/Creatinine Ratio (10-20) Glucose (70-99) mg/dl Calcium (8.5-10.1) mg/dl Troponin I (0-0.045) ng/ml Lipase (73-393) U/L Lyme Disease IgG Ab Negative (Negative) Lyme Disease IgM Ab Equivocal H (Negative) Imaging Data Radiologist's Impression: Radiology results as stated below per my review and the radiologist's interpretation: XR chest 2V routine CLINICAL HISTORY: Chest Pain dyspnea COMPARISON STUDY: 11/15/2017 FINDINGS: Interval development of left basilar atelectatic/infiltrative change additional interstitial infiltrative change right base.. These findings are superimposed upon pre-existing baseline parenchymal fibrotic change. Upper lungs are considered clear. IMPRESSION: Mild bibasilar interstitial infiltrative-type change. Mild stable cardiomegaly. The above report was generated using voice recognition software. It may contain grammatical, syntax or spelling errors. Electronically signed by: Adria Smiley M.D. 07/28/2018 3:11 PM ECG Data Attestation: I personally reviewed and interpreted this ECG as follows: Indication: chest pain Rate (beats per minute): 67 Rhythm: other (paced rhythm) Findings: + other (CA 228, QRS 190, QTC 524); no ST depression, no ST elevation and no acute ischemic change Blood Pressure Blood Pressure Findings: Normal blood pressure MDM Narrative 1332: The patient was evaluated in room C1B, and a complete history and physical examination were performed. 1516: The patient is actively having chest pain. Her vitals are stable. Patient will be given sublingual nitro. 1531: The patient's vitals are stable. She reports that her chest pain is a 3/10 status-post Nitroglycerin. Her troponin is elevated and higher than baseline. She was admitted to Dr. Mcgarry for an NSTEMI. No anticoagulation was given at this time as the patient's INR is therapeutic. I discussed the patient's case with Dr[facility] who will evaluate the patient for further management. Impression & Plan Non-ST elevation DC (NSTEMI) Discharge Plan Visit Data Chief Complaint: Chest Pain Stated Complaint: CHEST PAIN ED Provider: Bobby Umana Discharge Problem: Non-ST elevation DC (NSTEMI) Patient Disposition: Being Evaluated by Hospitalist Forms Stand Alone Forms: My [facility] Prescriptions Prescriptions: No Action clonazepam 0.5 mg Tablet 0.5 mg PO BID RF: 0 sodium chloride 1 gram Tablet 1 g PO DAILY RF: 0 oxcarbazepine [Trileptal] 300 mg Tablet 300 mg PO QID RF: 0 clopidogrel [Plavix] 75 mg Tablet 75 mg PO DAILY RF: 0 isosorbide mononitrate 60 mg Tablet Extended Release 24 Hr 60 mg PO BID RF: 0 pantoprazole [Protonix] 40 mg Tablet,Delayed Release (Dr/Ec) 40 mg PO DAILY RF: 0 nitroglycerin [Nitrostat] 0.4 mg Tablet, Sublingual 0.4 mg Sublingual DIRECTED PRN (Reason: Chest Pain) RF: 0 metoprolol succinate [Toprol XL] 25 mg Tablet Extended Release 24 Hr 25 mg PO DAILY RF: 0 ergocalciferol (vitamin D2) [Drisdol] 50,000 unit Capsule 50,000 unit PO MO RF: 0 epinephrine [EpiPen 2-Percy] 0.3 mg/0.3 mL Auto-Injector 0.3 mg IM DIRECTED PRN (Reason: Allergic Reaction) RF: 0 multivitamin with minerals Tablet 1 tab PO QPM RF: 0 ranolazine [Ranexa] 500 mg Tablet Extended Release 12 Hr 500 mg PO Q12H RF: 0 amlodipine [Norvasc] 5 mg tablet 5 mg PO TID RF: 0 warfarin [Coumadin] 6 mg tablet 6 mg PO DAILY RF: 0 tramadol 50 mg Tablet 50 - 100 mg PO BID PRN (Reason: Pain) RF: 0 furosemide [Lasix] 20 mg tablet 20 mg PO DAILY RF: 0 gabapentin [Neurontin] 100 mg capsule 200 mg PO TID RF: 0 Gaviscon Extra Strength 160-105 mg Tablet,Chewable PO UD PRN (Reason: Acid Reflux) RF: 0 acetaminophen [Tylenol] 325 mg Capsule 325 - 650 mg PO Q4 PRN (Reason: Pain) RF: 0 Referrals Referrals: Julius Zamora MD [Primary Care Provider] - The scribe's documentation has been prepared under my direction and personally reviewed by me in its entirety. I confirm that the note above accurately reflects all work, treatment, procedures, and medical decision making performed by me.
[2018-07-28] MEDS ORDERED: ONDANSETRON INJ 2 MG/ML 2 ML VIAL IV PRN (19:13)
[2018-07-28] MEDS ORDERED: MAGNESIUM CARBONATE PO PRN (19:13)
[2018-07-28] MEDS ORDERED: TRAMADOL HCL 50 MG TABLET PO PRN (19:13)
[2018-07-28] MEDS ORDERED: NITROGLYCERIN SL 0.4 MG/TAB TAB SL PRN (19:13)
[2018-07-28] MEDS ORDERED: ALUMINUM HYDROXIDE PO PRN (19:13)
[2018-07-28] MEDS ORDERED: EPINEPHRINE ADULT AUTO-INJECT 0.3 MG SYR IM PRN (19:13)
[2018-07-28] MEDS ORDERED: NON-FORMULARY MEDICATION (Acetaminophen [Tylenol] 325 MG) PO PRN (19:13)
[2018-07-28] MEDS ORDERED: [UNRECOGNIZED DRUG - OTHER] PO PRN (19:13)
[2018-07-28] MEDS ORDERED: MAGNESIUM HYDROXIDE SUSP 30 ML UDC PO PRN (19:13)
[2018-07-28] MEDS ORDERED: ALUMINUM/MAGNESIUM SUSP 30 ML UDC PO PRN (19:35)
[2018-07-28] MEDS ORDERED: WARFARIN SOD 6 MG TAB PO SCH (20:00)
[2018-07-28] MEDS ORDERED: cefTRIAXone SODIUM 1,000 MG in DEXTROSE 5% 50 ML IV SCH (20:00)
[2018-07-28] MEDS: NITROGLYCERIN 2% OINTMENT 30GM TUBE EXT SCH (20:30)
[2018-07-28] MEDS: ISOSORBIDE MONO EXTENDED REL 60 MG TABCR PO SCH (20:32)
[2018-07-28] MEDS: GABAPENTIN 100 MG CAP PO SCH (20:33)
[2018-07-28] MEDS: MULTIVITAMIN TAB PO SCH (20:33)
[2018-07-28] MEDS: RANOLAZINE 500 MG ER TAB PO SCH (20:34)
[2018-07-28] MEDS: OXcarbazepine 150 MG TABLET PO SCH (20:35)
[2018-07-28] MEDS: clonazePAM 0.5 MG TAB PO SCH (20:35)
[2018-07-28] MEDS ORDERED: AMLODIPINE BESYLATE 5 MG TAB PO SCH (21:00)
[2018-07-28] MEDS: ACETAMINOPHEN 325 MG TAB PO PRN (21:14)
[2018-07-29] MEDS: NITROGLYCERIN 2% OINTMENT 30GM TUBE EXT SCH ×2 (00:13→05:52)
[2018-07-29 01:02] LABS: Basophils # (auto) 0.02 K/uL (0-0.2); Basophils % (auto) 0.3 %; Eosinophils # (auto) 0.15 K/uL (0-0.5); Eosinophils % (auto) 2.3 %; Hematocrit (blood only) 38.3 % (37-47); Immature Granulocytes # (auto) 0.01 K/uL (0.00-0.02); Immature Granulocytes % (auto) 0.2 %; Lymphocytes % (auto) 24.7 %; Mean Corpuscular Hgb Conc 33.9 g/dL (32-36); Mean Corpuscular Volume 91.2 fL (80-100); Mean Platelet Volume 10.2 fL (7.4-10.4); Monocytes % (auto) 6.2 %; Neutrophils # (auto) 4.31 K/uL (1.4-6.5); Neutrophils % (auto) 66.3 %; Platelet Count 178 K/uL (130-400); RDW Coefficient of Variation 13.7 % (11.5-14.5); RDW Standard Deviation 45.2 fL (36.4-46.3); White Blood Count 6.49 K/uL (4.8-10.8)
[2018-07-29 01:17] LABS: INR 2.5 (0.9-1.1); Prothrombin Time 24.3 Seconds (9.0-12.0)
[2018-07-29] MEDS: NITROGLYCERIN SL 0.4 MG/TAB TAB SL PRN ×3 (06:25→06:36)
--- NOTE | 2018-07-29 06:43 | Ultrasound Report ---
US abdominal aortic aneurysm HISTORY: 88 years-old Female AAA follow-up study in a patient with history of abdominal aortic aneur ysm COMPARISON: CTA 01/16/2017 TECHNIQUE: Multiple real-time sonographic images of the aorta were obtained assessing grayscale appea gurmeet, color and spectral flow FINDINGS: Plug flow noted within the abdominal aorta. Extensive mixed plaque formation of the aorta is noted. T he proximal aorta measures 2.0 x 2.1 cm. Mid aorta measures 1.9 x 2.0 cm. Distal aorta measures 5.5 x 6.0 cm, previously measuring 5.8 x 6.[address] study. A large amount of atheromatous linsey que about the aneurysm sac is unchanged. Length of the aorta extends for 8.8 cm extending to the leve l of the iliac bifurcation. 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 The above report was generated using voice recognition software. It may contain grammatical, syntax o r spelling errors. Electronically signed by: Giancarlo Desai M.D. 07/29/2018 6:42 AM
[2018-07-29] MEDS ORDERED: MoRPHine SULFATE 2 MG/ML CARP IV ONE (06:51)
[2018-07-29] MEDS ORDERED: NITROGLYCERIN 2% OINTMENT 30GM TUBE EXT SCH (07:00)
[2018-07-29 07:05] LABS: BUN Creatinine Ratio 25.8 (10-20); Calcium 9.2 mg/dl (8.5-10.1); Creatinine Clr Calc Pharmacy 35.7 ml/min; Est GFR (African American) 49.9; Magnesium 1.9 mg/dl (1.8-2.4); Potassium 3.6 mmol/L (3.5-5.1)
--- NOTE | 2018-07-29 07:10 | XRay Report ---
XR chest 1V portable CLINICAL HISTORY: chest pain dyspnea COMPARISON STUDY: 07/28/2018 FINDINGS: Moderate increase in cardiac size. Increased pulmonary vasculature. Small left pleural effu shelton. Trace pleural effusion right base. Bipolar cardiac pacemaker with leads in good position. IMPRESSION: Findings of developing pulmonary edema/congestive failure. The above report was generated using voice recognition software. It may contain grammatical, syntax or spelling errors. Electronically signed by: Adria Smiley M.D. 07/29/2018 7:09 AM
[2018-07-29 07:19] LABS: Basophils # (auto) 0.04 K/uL (0-0.2); Basophils % (auto) 0.5 %; Eosinophils # (auto) 0.21 K/uL (0-0.5); Eosinophils % (auto) 2.4 %; Hematocrit (blood only) 42.7 % (37-47); Hemoglobin 14.4 g/dL (12.0-16.0); Immature Granulocytes # (auto) 0.01 K/uL (0.00-0.02); Immature Granulocytes % (auto) 0.1 %; Lymphocytes % (auto) 26.8 %; Mean Corpuscular Volume 91.6 fL (80-100); Mean Platelet Volume 10.6 fL (7.4-10.4); Monocytes # (auto) 0.79 K/uL (0.11-0.59); Monocytes % (auto) 9.2 %; Neutrophils # (auto) 5.23 K/uL (1.4-6.5); Platelet Count 218 K/uL (130-400); RDW Coefficient of Variation 13.7 % (11.5-14.5); RDW Standard Deviation 45.5 fL (36.4-46.3); Red Blood Count 4.66 M/uL (4.2-5.4); White Blood Count 8.58 K/uL (4.8-10.8)
[2018-07-29 07:28] LABS: INR 2.5 (0.9-1.1); Partial Thromboplastin Ratio 1.2; Prothrombin Time 24.2 Seconds (9.0-12.0)
[2018-07-29 07:29] LABS: Mean Corpuscular Hgb Conc 33.7 g/dL (32-36)
[2018-07-29] MEDS: ACETAMINOPHEN 325 MG TAB PO PRN (07:30)
[2018-07-29] MEDS ORDERED: NITROGLYCERIN/D5W 100MCG/ML 250 ML IV SCH (07:38)
[2018-07-29] MEDS ORDERED: NITROGLYCERIN/D5W 100 MCG/ML BTL ONE (07:59)
[2018-07-29] MEDS: clonazePAM 0.5 MG TAB PO SCH ×2 (08:31→20:14)
[2018-07-29] MEDS: RANOLAZINE 500 MG ER TAB PO SCH ×2 (08:35→20:12)
[2018-07-29] MEDS: PANTOprazole 40 MG TAB PO SCH (08:35)
[2018-07-29] MEDS: GABAPENTIN 100 MG CAP PO SCH ×3 (08:35→20:10)
[2018-07-29] MEDS: CLOPIDOGREL BISULFATE 75 MG TAB PO SCH (08:35)
[2018-07-29] MEDS: ISOSORBIDE MONO EXTENDED REL 60 MG TABCR PO SCH ×2 (08:36→20:11)
[2018-07-29] MEDS: FUROSEMIDE 20 MG TAB PO SCH ×2 (08:36→09:55)
[2018-07-29] MEDS: OXcarbazepine 150 MG TABLET PO SCH ×5 (08:37→20:10)
[2018-07-29] MEDS: SODIUM CHLORIDE 1 GM TABLET PO SCH (08:38)
[2018-07-29] MEDS: METOPROLOL SUCC 25MG EXT REL TAB PO SCH (08:38)
[2018-07-29] MEDS ORDERED: FUROSEMIDE 20 MG in SYRINGE 0 ML IV ONE (09:15)
[2018-07-29] MEDS ORDERED: DOXYCYCLINE HYCLATE 100 MG CAP PO ONE (09:30)
--- NOTE | 2018-07-29 10:26 | Consultation Report ---
DATE OF CONSULTATION: 07/29/2018 REQUESTING: Linette Mcgarry MD SUPERVISORY CBP OFFICER: Rafael Clark DO, [facility]. REASON FOR CONSULTATION: Progressive unstable angina, now with a non-ST elevation myocardial infarction. Dear Linette: Thank you for requesting a cardiology consultation on Paige regards to her significant coronary artery disease. Paige contacted the office yesterday noting that she was having progressive anginal symptoms. She was popping nitroglycerin as if it was candy with minimal relief in her symptoms. Her son had come from [place] to be with her and he helps convince her after we talked to her by phone to come to the Emergency Room. In the Emergency Room, she continued to have chest discomfort, last evening into the manager payer hours, she had significant discomfort, she was paul and ashen, her lips were blue and she was complaining of 6-8/10 chest discomfort. With IV nitroglycerin, her pain has improved. She is currently in bed, getting an echocardiogram. She does have some shortness of breath and her chest x-ray is consistent with pulmonary edema. She denies any current lightheadedness or dizziness yesterday with taking multiple rounds of nitroglycerin. She had significant lightheadedness. She denies any palpitations or fluttering or feeling her heart racing. Her appetite has been stable. Her weight is stable. She is frustrated that her mind is intact, but her body continues to fail her. She denies any bleeding or bruising, dark stools or black stools. The rest of review of system is otherwise negative. PAST MEDICAL HISTORY: 1. Chronic stable angina, Egyptian class IV. 2. Coronary artery disease, status post angioplasty and stenting with 4 drug-eluting stents to the proximal RCA and at the bifurcation of the PDA and the posterolateral branch, 06/2014. 3. Repeat cardiac catheterization 08/2016 with occlusion of the LAD after the first diagonal branch and total occlusion of the circumflex with a widely patent large dominant RCA that provided collaterals to the distal LAD. 4. Moderate pulmonary hypertension. 5. Moderate aortic stenosis. 6. Diastolic dysfunction. 7. Ulcerative colitis, status post ileostomy. 8. History of DVT and a history of pulmonary embolism in 1998, now on Coumadin anticoagulation. 9. Trigeminal neuralgia. 10. History of TIA. 11. History of hyponatremia secondary to medications which has resolved. 12. Infrarenal abdominal aortic aneurysm, measuring 6.7 cm. 13. Extensive DVT April 2012. 14. Status post IVC filter. 15. Status post dual chamber pacemaker, Biotronik, 08/2016. 16. Atrial flutter. SOCIAL HISTORY: She is . She denies any tobacco or alcohol. She enjoys gardening and being outside and [place] being [place]. ALLERGIES: No known drug allergies. FAMILY HISTORY: Mom at 86 of complications related to heart attack, cancer and pancreatitis. Dad from prostate cancer. MEDICATIONS: Reviewed in electronic medical record. ALLERGIES: TO SODIUM LAURYL SULFATE AND BEE VENOM. PHYSICAL EXAMINATION: GENERAL: She is awake, alert, oriented x3. She looks better than described when she was upstairs on the floor. She is currently in ICU bed 10. VITAL SIGNS: Heart rate is 67, blood pressure 118/80, respirations 17, sat 96% on 2 liters. HEENT: Mildly reduced carotid upstrokes. She has bilateral carotid bruits. Her sclerae are anicteric. Her hearing is normal. LUNGS: Crackles in the bases bilaterally. No rhonchi or wheezing. HEART: Regular rate and rhythm. She has a 2/6 crescendo-decrescendo murmur, which is mid to late peaking at the right sternal border. ABDOMEN: Soft, nontender, nondistended. Positive bowel sounds. EXTREMITIES: No clubbing or cyanosis. She does have lower extremity edema, worse on the left compared to the right, which is chronic. PSYCHIATRIC: Affect appeared appropriate. NEUROLOGIC: She is awake, alert and oriented x3. EKG: AV sequential pacemaker. LABORATORY STUDIES: Hemoglobin of 14.4, platelet count of 218. Her INR is 2.5. Sodium 139, potassium 3.6, BUN 30, creatinine 1.15. Her third troponin is 2.87. Chest x-ray: Heart failure. IMPRESSION: 1. Unstable angina, now with a non-ST elevation myocardial infarction. 2. Severe 3-vessel coronary artery disease, essentially living off a large dominant RCA providing collaterals to the LAD territory. 3. Status post angioplasty and stenting to the proximal RCA and to the distal RCA involving the PDA and the posterolateral branch, 06/2014. 4. Moderate to severe aortic stenosis. 5. Dual chamber pacemaker. 6. 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 7. 6.7 cm AAA, followed by Dr. Martinez. As I discussed with Paige and the nursing staff and the hospitalist, we need to consider cardiac catheterization to redefine her anatomy. If the RCA has significant disease and is amenable to angioplasty and stenting, we would try to fix that today. Unfortunately, she may just have progression of her left-sided disease and therefore her only option is going to be medical therapy. At this point, she is maxed out on her medical therapy. There may be some room to increase her beta blockers further as she has a pacemaker. We do not have to worry about significant bradycardia. She is already on Ranexa, high-dose Imdur and beta blockers as well as amlodipine 5 mg 3 times a day. If medical therapy is her only option, I would consider fentanyl patch to try to help with her angina as it is purely palliative in nature at that point. I discussed the risks and benefits of cardiac catheterization in detail. Risks including but not limited to bleeding or infection at the puncture site, damage to radial artery, risk of contrast-induced nephropathy, allergic reaction to contrast and 1 in a 1000 risk of heart attack, stroke or dying with the procedure were discussed. This was also discussed with Dr. Barajas in detail. We currently placed her on a nitro drip. We will hold her Imdur for now. We will hold her p.o. Lasix and I will give her 20 mg of IV Lasix to help with the pulmonary edema, she had likely related to diastolic dysfunction from her coronary ischemia. Her hemoglobin is stable. She does not have any back pain to suggest that her abdominal aortic aneurysm is leaking. Additionally, we will assess her aortic valve as it is possible, she would have severe aortic stenosis that would cause her to have progressive angina as well. Further recommendations will be forthcoming. CALISTA
[2018-07-29] MEDS ORDERED: NiCARDipine HCL INJ 2.5 MG/ML 10 ML AMP ONE (14:57)
[2018-07-29] MEDS ORDERED: HEPARIN (PORCINE) 1000 UNIT/ML 10 ML (CATH LAB USE ONLY) ONE (14:57)
[2018-07-29] MEDS ORDERED: MIDAZOLAM HCL 1 MG/ML 2ML VIAL ONE (14:57)
[2018-07-29] MEDS ORDERED: fentaNYL citrate 100 MCG/2 ML VIAL ONE (14:57)
[2018-07-29] MEDS ORDERED: NITROGLYCERIN/D5W 100MCG/ML 20ML SYR ONE (14:58)
[2018-07-29] MEDS ORDERED: CLOPIDOGREL BISULFATE 300 MG TAB ONE (17:25)
--- NOTE | 2018-07-29 17:38 | Cardiology Consultation ---
Date of Consultation July 29, 2018 Assessment & Plan (1) Non-ST elevation IA (NSTEMI): Patient with known severe, complex coronary artery disease here with accelerating angina and elevated troponin consistent with ACS. With patient's history, anticoagulation, age at elevated risk for cardiac catheterization and possible intervention. Discussed risks with patient and son and they are willing to proceed. In the setting of patient's known AAA and active anticoagulation will plan to proceed via right radial artery. Further recommendations pending findings of coronary angiography. History of Present Illness Attending Physician: Onel Jonas History of Present Illness Mrs. Ely is a very pleasant 88-year-old woman with a history of severe coronary artery disease with known occluded mid LAD, severe circumflex disease and previously patent stented RCA which provides right to left collaterals to LAD admitted with accelerating angina despite maximal medical therapy and now being treated for NSTEMI. Patient followed by Dr. Clark and prior interventional work done at [facility]. Interventional cardiology consult today for consideration of repeat cardiac catheterization. Patient with increasing chest pain overnight requiring escalating nitro infusion and transition to ICU this morning. At time of interview this morning patient was chest pain-free and comfortable. She is on Coumadin for history of DVT with INR of 2.5 today. Troponin is trended up to 2.29. Patient with preserved LV function, reported mild to moderate aortic stenosis and moderate pulmonary hypertension on prior echo. Known 6 cm AAA being medically managed. Allergies Allergy/AdvReac Type Severity Reaction Status Date / Time sodium lauryl sulfate Allergy Intermediate HIVES & Verified 07/28/18 17:13 WELTS bee venom protein (honey bee) Allergy Unknown ANAPHYLAXIS Verified 07/28/18 17 :13 Home Medications Home Medications Medication Instructions Recorded Confirmed Type clonazepam 0.5 mg PO BID 01/16/18 07/28/18 History clopidogrel [Plavix] 75 mg PO DAILY 01/16/18 07/28/18 History epinephrine [EpiPen 2-Percy] 0.3 mg IM DIRECTED PRN 01/16/18 07/28/18 History ergocalciferol (vitamin D2) 50,000 unit PO MO 01/16/18 07/28/18 History [Drisdol] isosorbide mononitrate 60 mg PO BID 01/16/18 07/28/18 History metoprolol succinate [Toprol XL] 25 mg PO DAILY 01/16/18 07/28/18 History multivitamin with minerals 1 tab PO QPM 01/16/18 07/28/18 History nitroglycerin [Nitrostat] 0.4 mg SUBLINGUAL DIRECTED PRN 01/16/18 07/28/18 History oxcarbazepine [Trileptal] 300 mg PO QID 01/16/18 07/28/18 History pantoprazole [Protonix] 40 mg PO DAILY 01/16/18 07/28/18 History ranolazine [Ranexa] 500 mg PO Q12H 01/16/18 07/28/18 History sodium chloride 1 g PO DAILY 01/16/18 07/28/18 History amlodipine 5 mg tablet 5 mg PO TID tab 05/07/18 07/28/18 History warfarin 6 mg tablet 6 mg PO DAILY tab 06/19/18 07/28/18 History acetaminophen [Tylenol] 325 - 650 mg PO Q4 PRN 07/28/18 07/28/18 History aluminum hydrox-magnesium carb 0 tab PO UD PRN 07/28/18 07/28/18 History [Gaviscon Extra Strength] furosemide [Lasix] 20 mg PO DAILY 07/28/18 07/28/18 History gabapentin [Neurontin] 200 mg PO TID 07/28/18 07/28/18 History tramadol 50 - 100 mg PO BID PRN 07/28/18 07/28/18 History Patient History Medical History HTN (hypertension) (Chronic) Aortic aneurysm (Resolved) Pulmonary embolism (Resolved) Surgical History H/O cardiac catheterization (Resolved) Social History Preferred Language: Gambian Communication Ability: Effective Log Rafter Required: No Beliefs That Will Affect Care: None Current Living Situation: Family Other Information That Helps Us Care for You: No Feels Safe at Home: Yes Safety Concerns: Feels Safe At This Time Smoking Status: Never smoker Hx Alcohol Use: No Hx Substance Use: No Review of Systems 10 point review of systems was completed and was otherwise negative unless stated in HPI Physical Exam Vital Signs (Past 24 Hours): Last Vital Signs Temp 36.5 C 07/29/18 03:22 Pulse 71 07/29/18 17:19 Resp 17 07/29/18 03:22 BP 119/88 07/29/18 15:16 Pulse Ox 98 07/29/18 15:16 Physical Exam: General: Comfortable, no acute distress Eyes: Sclerae anicteric, extraocular movements intact HENT: Oropharynx clear mucous membranes moist Neck: Normal carotid upstrokes, no bruits. No JVD. Lungs: Clear to auscultation bilaterally, no rhonchi or wheezes Cardiac: Regular rate and rhythm, 2/6 systolic ejection murmur Vascular: 2+ right radial artery pulse Abdomen: Soft, nontender, nondistended, positive bowel sounds. Extremities: Well perfused, no peripheral edema Skin: No rashes or lesions. Neuro: Nonfocal Psych: Alert orient x3, normal affect and mood
--- NOTE | 2018-07-29 17:46 | Pre Anesthesia Assessment ---
Date of Service July 29, 2018 Pre Sedation Assessment Vital Signs Temp Pulse Pulse Resp BP BP Pulse Ox 07/29/18 17:19 71 07/29/18 15:16 70 119/88 98 07/29/18 15:10 72 99 07/29/18 15:01 65 98 07/29/18 15:00 67 133/83 97 07/29/18 14:45 67 118/81 98 07/29/18 14:30 81 119/80 97 07/29/18 13:30 71 101/71 98 07/29/18 13:15 74 101/71 97 07/29/18 13:00 62 101/68 97 07/29/18 12:46 69 114/61 95 07/29/18 12:15 70 109/76 98 07/29/18 12:00 62 120/80 96 07/29/18 11:46 66 97/69 L 96 07/29/18 11:30 79 114/79 97 07/29/18 11:15 66 110/71 99 07/29/18 11:00 68 107/65 96 07/29/18 10:45 74 104/70 93 07/29/18 10:30 60 93/64 L 94 07/29/18 10:15 60 122/68 96 07/29/18 10:00 61 101/67 93 07/29/18 09:47 63 129/81 93 07/29/18 09:15 79 134/83 95 07/29/18 09:01 60 137/82 93 07/29/18 08:45 60 121/68 93 07/29/18 08:37 61 120/68 95 07/29/18 08:00 63 127/78 89 L 07/29/18 07:31 63 104/71 88 L 07/29/18 07:18 62 119/76 07/29/18 03:22 36.5 C 67 17 118/80 96 07/28/18 23:28 36.4 C L 67 118/74 97 07/28/18 22:20 72 07/28/18 20:19 36.6 C 63 18 135/86 91 07/28/18 20:00 62 07/28/18 18:33 36.5 C 81 20 133/97 89 L Cardiovascular RRR, no murmur, no edema Respiratory normal respiratory effort, lungs clear to auscultation Pre-Sedation Airway Assessment Smoking Status: Never smoker Hx Sleep Apnea: No Hx Difficult Intubation: No Short, Thick Neck: No Thyromental Distance: > or= 3.5 Finger Breadths Oral Cavity: + Dentures Mallampati Class: IV ASA: ASA4 NPO Status Date of Last Intake of Fluids: 07/29/18 Time of Last Intake of Fluids: 08:00 Last Oral Intake of Fluids Comment: sip with meds Date of Last Intake of Solid Food: 07/28/18 Procedure Planning Contraindications for Sedation: none Current Medications Reviewed: Yes Notes The planned sedation has been discussed with the patient. Informed Consent was o btained. I have identified the patient, determined the appropriateness of sedation and have assessed the patient immediately prior to the procedure. All medicine(s) and interventions are by my order.
--- NOTE | 2018-07-29 17:47 | Post Anesthesia Assessment ---
Date of Service July 29, 2018 Post Sedation Assessment Vital Signs Temp Pulse Pulse Resp BP BP Pulse Ox 07/29/18 17:19 71 07/29/18 15:16 70 119/88 98 07/29/18 15:10 72 99 07/29/18 15:01 65 98 07/29/18 15:00 67 133/83 97 07/29/18 14:45 67 118/81 98 07/29/18 14:30 81 119/80 97 07/29/18 13:30 71 101/71 98 07/29/18 13:15 74 101/71 97 07/29/18 13:00 62 101/68 97 07/29/18 12:46 69 114/61 95 07/29/18 12:15 70 109/76 98 07/29/18 12:00 62 120/80 96 07/29/18 11:46 66 97/69 L 96 07/29/18 11:30 79 114/79 97 07/29/18 11:15 66 110/71 99 07/29/18 11:00 68 107/65 96 07/29/18 10:45 74 104/70 93 07/29/18 10:30 60 93/64 L 94 07/29/18 10:15 60 122/68 96 07/29/18 10:00 61 101/67 93 07/29/18 09:47 63 129/81 93 07/29/18 09:15 79 134/83 95 07/29/18 09:01 60 137/82 93 07/29/18 08:45 60 121/68 93 07/29/18 08:37 61 120/68 95 07/29/18 08:00 63 127/78 89 L 07/29/18 07:31 63 104/71 88 L 07/29/18 07:18 62 119/76 07/29/18 03:22 36.5 C 67 17 118/80 96 07/28/18 23:28 36.4 C L 67 118/74 97 07/28/18 22:20 72 07/28/18 20:19 36.6 C 63 18 135/86 91 07/28/18 20:00 62 07/28/18 18:33 36.5 C 81 20 133/97 89 L Recovery Score Activity: Moves 4 extremities Respiration: Deep Breath/Cough Circulation: +/-20% PreAnes Value Consciousness: Fully Awake Oxygen Saturation: O2 needed for >90% Discharge Sedation Level of Care: Fast Track Phase II Post Sedation Plan On clinical assessment, the patient appears to have tolerated the sedation without complications. Patient is recovering as anticipated. Patient will continue to be monitored by nursing and may be discharged when sedation discharge criteria are met per below protocol. Upon Completions of procedure and additional 15 minutes continue every 5 minute vital signs and the P.A.R. score; then discharge to a Phase I or Fast Track to Phase II per the following guidelines: * Discharge Patient to appropriate Phase II area if PAR is 8 or greater or return to pre- procedure baseline. The post - procedure orders will be as directed. * If PAR score is less than 8 or not return to pre-procedure baseline then patient will follow Phase I monitoring till PAR is reached for Phase II. The Phase I may be done in procedure room or may call to secure a Phase I area. * If naloxone or flumazenil are used for reversal, hold in Phase I for continued monitoring from when last reversal dose was given for a minimum of 60 minutes or longer pending the nurse and/or physician discretion of patient condition before discharge to Phase II. Please call the Sedation Physician to re-evaluate and complete post-note for discharge to Phase II area. Do NOT discharge from procedure sedation or Phase 1 until post- sedation evaluation note is complete by procedure /sedation MD Sedation Discharge Instructions to be given to the patient at discharge to home.
--- NOTE | 2018-07-29 17:53 | Cardiac Catheterization ---
Cardiac Cath Procedure: Brief Procedure Date July 29, 2018 Pre-Procedure Diagnosis Pre-Procedure Diagnosis: Non STEMI AUC Score AUC Score: 7 Post-Procedure Diagnosis Post-Procedure Diagnosis: Severe CAD, Successful PCI and Elevated Intracardiac Pressures Procedure(s) Performed Procedure(s) Performed: Coronary Angiography, Left Heart Cath and Drug Eluting Stent Fitter Hand Vel Barajas MD Building Construction Estimator(s) Elana Estimated Blood Loss Estimated Blood Loss: 15 Medication(s) Medication(s): Clopidogrel, Fentanyl, Heparin, Lidocaine 1%, Nicardipine, Nitroglycerin and Versed Preliminary Findings Chronic 100% mid LAD occlusion after D1 Chronic 100% mid circumflex occlusion after OM2. Small OM2 with severe diffuse disease. Very large RCA with 95+% acute mid stenosis. Patent proximal, distal stents. Provides right to left collaterals to LAD. Successful PCI of mid RCA with single SYLVIE (4.0 x 26 Santosh SYLVIE; post-dilated with 5.0 NC). Elevated left sided filling pressures (LVEDP 29) Recommendations Recommendations: PCI without planned CABG Specimens Specimens: None Fluids (cc crystalloids) Fluids (cc crystalloids): 75 Drains Drains: none Anesthesia moderate Procedural Complication(s) None Disposition ICU
--- NOTE | 2018-07-29 18:44 | Critical Care Progress Note ---
Date of Service July 29, 2018 Assessment & Plan (1) Admitted to intensive care unit: Reason Critically Ill: 88-year-old female with chest pain concerning for cardiac ischemia requiring IV nitroglycerin PLAN: Neuro: [] - [] Resp: [] - [] CV: [] - [] Fluids/Renal: [] - [] ID: [] - [] GI/Nutrition: [] - [] Heme: [] - [] DVT prophylaxis: [] Endocrine: ICU hyperglycemia protocol [] - [] Vascular access: [] Code Status: [] Present on Admission?: No Physical Exam Vital Signs (Past 24 Hours): Last Vital Signs Temp 36.5 C 07/29/18 03:22 Pulse 67 07/29/18 03:22 Resp 17 07/29/18 03:22 BP 118/80 07/29/18 03:22 Pulse Ox 96 07/29/18 03:22 Results & Data Laboratory Results 07/29/18 07/29/18 07/29/18 Range/Units 16:08 15:42 12:37 WBC (4.8-10.8) K/uL RBC (4.2-5.4) M/uL Hgb (12.0-16.0) g/dL Hct (37-47) % MCV (80-100) fL MCH (25-34) pg MCHC (32-36) g/dL RDW Std Deviation (36.4-46.3) fL RDW Coeff of Byo (11.5-14.5) % Plt Count (130-400) K/uL MPV (7.4-10.4) fL Immature Gran % (Auto) % Neut % (Auto) % Lymph % (Auto) % Irwin % (Auto) % Eos % (Auto) % Baso % (Auto) % Immature Gran # (Auto) (0.00-0.02) K/uL Neut # (Auto) (1.4-6.5) K/uL Lymph # (Auto) (1.2-3.4) K/uL Irwin # (Auto) (0.11-0.59) K/uL Eos # (Auto) (0-0.5) K/uL Baso # (Auto) (0-0.2) K/uL PT (9.0-12.0) Seconds INR (0.9-1.1) APTT (21.0-31.0) Seconds PTT Ratio Activ Coag Time Kaolin 263 H 224 H (94-140) SECONDS Sodium (136-145) mmol/L Potassium (3.5-5.1) mmol/L Chloride (98-107) mmol/L Carbon Dioxide (21-32) mmol/L Anion Gap (3-11) BUN (7-18) mg/dl Creatinine (0.6-1.2) mg/dl Est Cr Clr Drug Dosing ml/min Est GFR ( Amer) Est GFR (Non-Af Amer) BUN/Creatinine Ratio (10-20) Glucose (70-99) mg/dl POC Glucose 102 H (70-99) Calcium (8.5-10.1) mg/dl Magnesium (1.8-2.4) mg/dl Troponin I (0-0.045) ng/ml Procalcitonin (0-0.5) ng/ml Nasal Screen MRSA (PCR) (Negative) Lyme IgG (Western Blot) Lyme IgG 18 kDa Band Lyme IgG 23 kDa Band Lyme IgG 28 kDa Band Lyme IgG 30 kDa Band Lyme IgG 39 kDa Band Lyme IgG 41 kDa Band Lyme IgG 45 kDa Band Lyme IgG 58 kDa Band Lyme IgG 66 kDa Band Lyme IgG 93 kDa Band Lyme IgM (Western Blot) Lyme IgM 23 kDa Band Lyme IgM 39 kDa Band Lyme IgM 41 kDa Band 07/29/18 07/29/18 07/29/18 Range/Units 11:57 09:40 08:00 WBC (4.8-10.8) K/uL RBC (4.2-5.4) M/uL Hgb (12.0-16.0) g/dL Hct (37-47) % MCV (80-100) fL MCH (25-34) pg MCHC (32-36) g/dL RDW Std Deviation (36.4-46.3) fL RDW Coeff of Boy (11.5-14.5) % Plt Count (130-400) K/uL MPV (7.4-10.4) fL Immature Gran % (Auto) % Neut % (Auto) % Lymph % (Auto) % Irwin % (Auto) % Eos % (Auto) % Baso % (Auto) % Immature Gran # (Auto) (0.00-0.02) K/uL Neut # (Auto) (1.4-6.5) K/uL Lymph # (Auto) (1.2-3.4) K/uL Irwin # (Auto) (0.11-0.59) K/uL Eos # (Auto) (0-0.5) K/uL Baso # (Auto) (0-0.2) K/uL PT (9.0-12.0) Seconds INR (0.9-1.1) APTT (21.0-31.0) Seconds PTT Ratio Activ Coag Time Kaolin (94-140) SECONDS Sodium (136-145) mmol/L Potassium (3.5-5.1) mmol/L Chloride (98-107) mmol/L Carbon Dioxide (21-32) mmol/L Anion Gap (3-11) BUN (7-18) mg/dl Creatinine (0.6-1.2) mg/dl Est Cr Clr Drug Dosing ml/min Est GFR ( Amer) Est GFR (Non-Af Amer) BUN/Creatinine Ratio (10-20) Glucose (70-99) mg/dl POC Glucose (70-99) Calcium (8.5-10.1) mg/dl Magnesium (1.8-2.4) mg/dl Troponin I 2.290 H* (0-0.045) ng/ml Procalcitonin < 0.05 (0-0.5) ng/ml Nasal Screen MRSA (PCR) Positive A (Negative) Lyme IgG (Western Blot) Lyme IgG 18 kDa Band Lyme IgG 23 kDa Band Lyme IgG 28 kDa Band Lyme IgG 30 kDa Band Lyme IgG 39 kDa Band Lyme IgG 41 kDa Band Lyme IgG 45 kDa Band Lyme IgG 58 kDa Band Lyme IgG 66 kDa Band Lyme IgG 93 kDa Band Lyme IgM (Western Blot) Lyme IgM 23 kDa Band Lyme IgM 39 kDa Band Lyme IgM 41 kDa Band 07/29/18 07/29/18 07/29/18 Range/Units 06:30 06:30 06:30 WBC 8.58 (4.8-10.8) K/uL RBC 4.66 (4.2-5.4) M/uL Hgb 14.4 (12.0-16.0) g/dL Hct 42.7 (37-47) % MCV 91.6 (80-100) fL MCH 30.9 (25-34) pg MCHC 33.7 (32-36) g/dL RDW Std Deviation 45.5 (36.4-46.3) fL RDW Coeff of Boy 13.7 (11.5-14.5) % Plt Count 218 (130-400) K/uL MPV 10.6 H (7.4-10.4) fL Immature Gran % (Auto) 0.1 % Neut % (Auto) 61.0 % Lymph % (Auto) 26.8 % Irwin % (Auto) 9.2 % Eos % (Auto) 2.4 % Baso % (Auto) 0.5 % Immature Gran # (Auto) 0.01 (0.00-0.02) K/uL Neut # (Auto) 5.23 (1.4-6.5) K/uL Lymph # (Auto) 2.30 (1.2-3.4) K/uL Irwin # (Auto) 0.79 H (0.11-0.59) K/uL Eos # (Auto) 0.21 (0-0.5) K/uL Baso # (Auto) 0.04 (0-0.2) K/uL PT 24.2 H (9.0-12.0) Seconds INR 2.5 H (0.9-1.1) APTT 33.0 H (21.0-31.0) Seconds PTT Ratio 1.2 Activ Coag Time Kaolin (94-140) SECONDS Sodium 139 (136-145) mmol/L Potassium 3.6 (3.5-5.1) mmol/L Chloride 107 (98-107) mmol/L Carbon Dioxide 25 (21-32) mmol/L Anion Gap 7.0 (3-11) BUN 30 H (7-18) mg/dl Creatinine 1.15 (0.6-1.2) mg/dl Est Cr Clr Drug Dosing 35.7 ml/min Est GFR ( Amer) 49.9 Est GFR (Non-Af Amer) 43.0 BUN/Creatinine Ratio 25.8 H (10-20) Glucose 113 H (70-99) mg/dl POC Glucose (70-99) Calcium 9.2 (8.5-10.1) mg/dl Magnesium 1.9 (1.8-2.4) mg/dl Troponin I Cancelled (0-0.045) ng/ml Procalcitonin (0-0.5) ng/ml Nasal Screen MRSA (PCR) (Negative) Lyme IgG (Western Blot) Lyme IgG 18 kDa Band Lyme IgG 23 kDa Band Lyme IgG 28 kDa Band Lyme IgG 30 kDa Band Lyme IgG 39 kDa Band Lyme IgG 41 kDa Band Lyme IgG 45 kDa Band Lyme IgG 58 kDa Band Lyme IgG 66 kDa Band Lyme IgG 93 kDa Band Lyme IgM (Western Blot) Lyme IgM 23 kDa Band Lyme IgM 39 kDa Band Lyme IgM 41 kDa Band 07/29/18 07/29/18 07/29/18 Range/Units 06:30 00:50 00:50 WBC 6.49 (4.8-10.8) K/uL RBC 4.20 (4.2-5.4) M/uL Hgb 13.0 (12.0-16.0) g/dL Hct 38.3 (37-47) % MCV 91.2 (80-100) fL MCH 31.0 (25-34) pg MCHC 33.9 (32-36) g/dL RDW Std Deviation 45.2 (36.4-46.3) fL RDW Coeff of Boy 13.7 (11.5-14.5) % Plt Count 178 (130-400) K/uL MPV 10.2 (7.4-10.4) fL Immature Gran % (Auto) 0.2 % Neut % (Auto) 66.3 % Lymph % (Auto) 24.7 % Irwin % (Auto) 6.2 % Eos % (Auto) 2.3 % Baso % (Auto) 0.3 % Immature Gran # (Auto) 0.01 (0.00-0.02) K/uL Neut # (Auto) 4.31 (1.4-6.5) K/uL Lymph # (Auto) 1.60 (1.2-3.4) K/uL Irwin # (Auto) 0.40 (0.11-0.59) K/uL Eos # (Auto) 0.15 (0-0.5) K/uL Baso # (Auto) 0.02 (0-0.2) K/uL PT 24.3 H (9.0-12.0) Seconds INR 2.5 H (0.9-1.1) APTT (21.0-31.0) Seconds PTT Ratio Activ Coag Time Kaolin (94-140) SECONDS Sodium (136-145) mmol/L Potassium (3.5-5.1) mmol/L Chloride (98-107) mmol/L Carbon Dioxide (21-32) mmol/L Anion Gap (3-11) BUN (7-18) mg/dl Creatinine (0.6-1.2) mg/dl Est Cr Clr Drug Dosing ml/min Est GFR ( Amer) Est GFR (Non-Af Amer) BUN/Creatinine Ratio (10-20) Glucose (70-99) mg/dl POC Glucose (70-99) Calcium (8.5-10.1) mg/dl Magnesium (1.8-2.4) mg/dl Troponin I 2.050 H* (0-0.045) ng/ml Procalcitonin (0-0.5) ng/ml Nasal Screen MRSA (PCR) (Negative) Lyme IgG (Western Blot) Lyme IgG 18 kDa Band Lyme IgG 23 kDa Band Lyme IgG 28 kDa Band Lyme IgG 30 kDa Band Lyme IgG 39 kDa Band Lyme IgG 41 kDa Band Lyme IgG 45 kDa Band Lyme IgG 58 kDa Band Lyme IgG 66 kDa Band Lyme IgG 93 kDa Band Lyme IgM (Western Blot) Lyme IgM 23 kDa Band Lyme IgM 39 kDa Band Lyme IgM 41 kDa Band 07/29/18 07/28/18 07/28/18 Range/Units 00:50 19:27 14:41 WBC (4.8-10.8) K/uL RBC (4.2-5.4) M/uL Hgb (12.0-16.0) g/dL Hct (37-47) % MCV (80-100) fL MCH (25-34) pg MCHC (32-36) g/dL RDW Std Deviation (36.4-46.3) fL RDW Coeff of Boy (11.5-14.5) % Plt Count (130-400) K/uL MPV (7.4-10.4) fL Immature Gran % (Auto) % Neut % (Auto) % Lymph % (Auto) % Irwin % (Auto) % Eos % (Auto) % Baso % (Auto) % Immature Gran # (Auto) (0.00-0.02) K/uL Neut # (Auto) (1.4-6.5) K/uL Lymph # (Auto) (1.2-3.4) K/uL Irwin # (Auto) (0.11-0.59) K/uL Eos # (Auto) (0-0.5) K/uL Baso # (Auto) (0-0.2) K/uL PT (9.0-12.0) Seconds INR (0.9-1.1) APTT (21.0-31.0) Seconds PTT Ratio Activ Coag Time Kaolin (94-140) SECONDS Sodium (136-145) mmol/L Potassium (3.5-5.1) mmol/L Chloride (98-107) mmol/L Carbon Dioxide (21-32) mmol/L Anion Gap (3-11) BUN (7-18) mg/dl Creatinine (0.6-1.2) mg/dl Est Cr Clr Drug Dosing ml/min Est GFR ( Amer) Est GFR (Non-Af Amer) BUN/Creatinine Ratio (10-20) Glucose (70-99) mg/dl POC Glucose (70-99) Calcium (8.5-10.1) mg/dl Magnesium (1.8-2.4) mg/dl Troponin I 2.870 H* 0.965 H* (0-0.045) ng/ml Procalcitonin (0-0.5) ng/ml Nasal Screen MRSA (PCR) (Negative) Lyme IgG (Western Blot) Pending Lyme IgG 18 kDa Band Pending Lyme IgG 23 kDa Band Pending Lyme IgG 28 kDa Band Pending Lyme IgG 30 kDa Band Pending Lyme IgG 39 kDa Band Pending Lyme IgG 41 kDa Band Pending Lyme IgG 45 kDa Band Pending Lyme IgG 58 kDa Band Pending Lyme IgG 66 kDa Band Pending Lyme IgG 93 kDa Band Pending Lyme IgM (Western Blot) Pending Lyme IgM 23 kDa Band Pending Lyme IgM 39 kDa Band Pending Lyme IgM 41 kDa Band Pending
[2018-07-29] MEDS ORDERED: FUROSEMIDE 40 MG in SYRINGE 0 ML IV SCH (20:00)
--- NOTE | 2018-07-29 20:05 | Cardiac Catheterization ---
Cardiac Cath Procedure Full Procedure Date July 29, 2018 Pre-Procedure Diagnosis Pre-Procedure Diagnosis: Non STEMI AUC Score AUC Score: 7 Post-Procedure Diagnosis Post-Procedure Diagnosis: Severe CAD, Successful PCI and Elevated Intracardiac Pressures Procedure(s) Performed Procedure(s) Performed: Coronary Angiography, Left Heart Cath and Drug Eluting Stent Director Of Elementary Education Vel Barajas MD Director Card(s) Elana Estimated Blood Loss Estimated Blood Loss: 15 Medication(s) Medication(s): Clopidogrel, Fentanyl, Heparin, Lidocaine 1%, Nicardipine, Nitroglycerin and Versed Summary of Findings Indication: Refractory angina, high risk NSTEMI Access: 6 Fr right radial artery Catheters: Garrison, JL 3.5, pigtail, Ikari 3.5 guide Findings: LM -luminal irregularities LAD -chronic 100% mid occlusion after takeoff of small first diagonal. Diagonal with mild diffuse disease. Circumflex -chronic 100% mid occlusion after takeoff of small OM 2. OM 2 with severe diffuse disease RCA -very large, dominant vessel, patent proximal stent, 95+% mid segment disease, widely patent distal stent. Large PLB without significant disease. Large right PDA without significant disease and provides right to left epicardial collateral to LAD. LVEDP -29 -- PCI -- Antithrombotic therapy: Heparin, clopidogrel Procedure: RCA cannulated with [place] 3.5 guide and guide liner Manager [employer] 50 wire passed across lesion into distal vessel Mid RCA lesion predilated with 2.5 compliant balloon Dilated lesion stented with 4.0 x 26 mm [place] drug-eluting stent Stent post-dilated with 5.0 noncompliant balloon IC vasodilators administered for spasm Post procedure LEENA 3 in PDA and collaterals to LAD. LEENA II flow in right PLB and suspect some distal embolization. Stent well expanded with minimal residual stenosis and no other apparent cardiac complications. Arterial Closure: TR band Summary: 1. Severe multi vessel coronary artery disease -95% acute mid RCA stenosis. Patent proximal, distal RCA stents. Provides collaterals to LAD Chronic 100% mid LAD occlusion Chronic 100% mid circumflex occlusion 2. Elevated intracardiac filling pressure 3. Successful PCI of mid RCA with single drug-eluting stent (4.0 x 26 [place]; postdilated to 5.0). 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 Cardiac Status Clinical evaluation leading to the procedure CAD Presenation: Non STEMI Anginal Classification: CCS IV Cardiogenic Shock within 24 Hours: No Cardiac Arrest within 24 Hours: No Imaging Studies Past 6 Months: Yes Stress Studies Past 6 Months: No Diagnostic Physicians Name: Vel Barajas MD Status: Elective Closure Device Percutaneous Entry Location: Radial Closure Device: Radial Band Recommendations: PCI without planned CABG PCI Indication: PCI for high risk Non-TARIK Lesion Segment Name: Mid RCA Culprit Artery: Yes Stenosis Prior to Rx (%): 95 Chronic Total Occlusion: No IVUS: No FFR: No Pre-Procedure LEENA Flow: 3 Previously Treated Lesion: No Lesion Complexity: Non-High/Non-C Lesion Length (mm): 20 Thrombus Present: Yes Bifurcation Lesion: No Guidewire Across Lesion: Stenosis Post-Procedure (%): 0 Post-Procedure LEENA Flow: 3 Devices(s) Deployed: Yes Yes Intraprocedure Events Significant Disection: No Perforation: No
[2018-07-29] MEDS: MULTIVITAMIN TAB PO SCH (20:11)
--- NOTE | 2018-07-29 21:19 | Critical Care Consultation ---
Date of Consultation July 29, 2018 Assessment & Plan (1) Admitted to intensive care unit: Reason Critically Ill: 88-year-old female with acute NSTEMI s/p PTCA w/ SYLVIE x1 to the RCA. NEURO - * CAM ICU: NEGATIVE * Pain: Acetaminophen, Ultram PRN CARDIAC/VASCULAR - * Acute NSTEMI s/p PTCA w/ SYLVIE x1 to the RCA: * Patient reliant on RCA for a majority of cardiac perfusion 2/2 chronic occlusion of LAD. * Successful PCI w/ near complete resolve of CP. * Continue to titrate down Nitro gtt as tolerated. * Elevated cardiac filling pressures. Addressed w/ one time dose of IV Lasix. * Continue home ASCVD Rx per typical. * Monitor on telemetry. RESPIRATORY - * Monitor for s/s volume overload w/ elevated filling pressures. * Received one time Lasix dose. * Reassess for O2 requirement as needed. GI/NUTRITION - * AHA Diet RENAL/LYTES - * No significant electrolyte derangements. * Replace as needed. - * No concerns at this time. ENDO - * No h/o DM or Thyroid Dz. * BSGs per unit protocol. ISS --> gtt per unit policy. HEME - * Stable H&H: * Will monitor closely. ID - * No c/o infectious contribution at this time. LINES/IV ACCESS - * PIVs x2 DVT PROPHYLAXIS - * Coumadin * SCDs I have personally spent 35 minutes of critical care time in the direct management of this patient. This is a life/limb threatening event. This includes time spent evaluating patient, direct bedside care, chart review, placing orders, interpretation of diagnostic studies, discussion with consultants, patient, and family members, as well as other required patient management activities. This time is exclusive of all separately billable procedures, and teaching time and separate from and in addition to any other critical care service time. Thank you for allowing us to participate in the care of this patient. Please refer to my attending physician's documentation for any further recommendations. (2) Non-ST elevation IN (NSTEMI): (3) CAD (coronary artery disease): (4) S/P PTCA (percutaneous transluminal coronary angioplasty): (5) S/P drug eluting coronary stent placement: (6) Aneurysm of infrarenal abdominal aorta: Supervising Physician Co-Signing Physician Notes I have personally evaluated and examined this patient. I agree with assessment and plan of Lyle Donnelly PA-C. Continue diuresis for possible early volume overload History of Present Illness Attending Physician: Onel Jonas Patient is an 88-year-old female initially admitted on 07/28 for NSTEMI with ongoing complaints of chest pain. Patient was placed on a nitro drip, however the patient had persistent pain. She has a significant past medical history of coronary artery disease with chronic 100% occlusion of her LAD with reliance on collaterals stemming from the RCA. She is underwent previous PTCA without recommendation for further cardiac intervention. She had been doing well with maximized medical management, however the patient developed intense chest pain prompting her visit to the emergency department today. With ongoing symptoms of chest pain as well as elevated troponins, the patient underwent TCA with findings consistent with mid RCA occlusion. The patient underwent SYLVIE x1 to the RCA. She was noted to have increased cardiac filling pressures. She received a dose of 40 mg IV Lasix post intervention. Nitro drip is in place, however goal is for weaning down nitro overnight if possible. On evaluation in the ICU, the patient is awake, alert, and oriented. She denies any chest pain at this time. She reports feeling drowsy, but otherwise denies any symptoms of chest pain, shortness of breath, pleuritic pain, nausea, vomiting, abdominal pain, or extremity numbness or weakness. Allergies Allergy/AdvReac Type Severity Reaction Status Date / Time sodium lauryl sulfate Allergy Intermediate HIVES & Verified 07/28/18 17:13 WELTS bee venom protein (honey bee) Allergy Unknown ANAPHYLAXIS Verified 07/28/18 17:13 Home Medications Home Medications Medication Instructions Recorded Confirmed Type clonazepam 0.5 mg PO BID 01/16/18 07/28/18 History clopidogrel [Plavix] 75 mg PO DAILY 01/16/18 07/28/18 History epinephrine [EpiPen 2-Percy] 0.3 mg IM DIRECTED PRN 01/16/18 07/28/18 History ergocalciferol (vitamin D2) 50,000 unit PO MO 01/16/18 07/28/18 History [Drisdol] isosorbide mononitrate 60 mg PO BID 01/16/18 07/28/18 History metoprolol succinate [Toprol XL] 25 mg PO DAILY 01/16/18 07/28/18 History multivitamin with minerals 1 tab PO QPM 01/16/18 07/28/18 History nitroglycerin [Nitrostat] 0.4 mg SUBLINGUAL DIRECTED PRN 01/16/18 07/28/18 History oxcarbazepine [Trileptal] 300 mg PO QID 01/16/18 07/28/18 History pantoprazole [Protonix] 40 mg PO DAILY 01/16/18 07/28/18 History ranolazine [Ranexa] 500 mg PO Q12H 01/16/18 07/28/18 History sodium chloride 1 g PO DAILY 01/16/18 07/28/18 History amlodipine 5 mg tablet 5 mg PO TID tab 05/07/18 07/28/18 History warfarin 6 mg tablet 6 mg PO DAILY tab 06/19/18 07/28/18 History acetaminophen [Tylenol] 325 - 650 mg PO Q4 PRN 07/28/18 07/28/18 History aluminum hydrox-magnesium carb 0 tab PO UD PRN 07/28/18 07/28/18 History [Gaviscon Extra Strength] furosemide [Lasix] 20 mg PO DAILY 07/28/18 07/28/18 History gabapentin [Neurontin] 200 mg PO TID 07/28/18 07/28/18 History tramadol 50 - 100 mg PO BID PRN 07/28/18 07/28/18 History Patient History Medical History HTN (hypertension) (Chronic) Aortic aneurysm (Resolved) Pulmonary embolism (Resolved) Surgical History H/O cardiac catheterization (Resolved) Social History Preferred Language: Cymraes Communication Ability: Effective Park Activities Coordinator Required: No Beliefs That Will Affect Care: None Current Living Situation: Family Other Information That Helps Us Care for You: No Feels Safe at Home: Yes Safety Concerns: Feels Safe At This Time Smoking Status: Never smoker Hx Alcohol Use: No Hx Substance Use: No Review of Systems A complete 10 point review of systems was reviewed with the patient with pertinent positives and negatives as per history of present illness. All else were negative. Physical Exam Vital Signs (Past 24 Hours): Last Vital Signs Temp 37.0 C 07/29/18 20:32 Pulse 65 07/29/18 19:45 Resp 25 H 07/29/18 19:45 BP 127/87 07/29/18 19:45 Pulse Ox 95 07/29/18 19:45 Physical Exam: VITAL SIGNS - Vital signs and nursing notes were reviewed. GENERAL - 88-year-old female appearing her stated age who is in no acute distress. Communicates well with provider and answers questions appropriately. HEAD - NC/AT. EYES - PERRL with EOMI bilaterally. Sclera anicteric. EARS - No deformities of external structures noted on gross examination bilaterally. NOSE - Midline and without cyanosis. No epistaxis or purulent drainage noted. MOUTH/OROPHARYNX - Without perioral cyanosis. NECK - Neck with FROM. Supple to palpation. LUNGS - Chest wall symmetric without accessory muscle use, intercostals retractions, or central cyanosis. Normal vesicular breath sounds CTA B/L. LEFT- sided basilar rales appreciated at the base. CARDIAC - RRR with S1/S2. LEROY noted throughout. No rubs or gallops appreciated. ABDOMEN - Abdominal contour flat without pulsations or visible masses. BS normoactive all four quadrants. No tenderness, palpable masses, hepatosplenomegaly, or ascites noted. EXTREMITIES - No clubbing or peripheral cyanosis. Trace pretibial edema present. +3/5 radial and dorsalis pedis pulses palpated throughout. +5/5 strength noted in UE/LE bilaterally. NEUROLOGIC - Cranial nerves II through XII grossly intact. Sensory intact to light touch throughout. PSYCH - A&Ox3 and cooperates fully with examiner. Pt is very pleasant and interacts well with examiner.
--- NOTE | 2018-07-29 22:14 | Hospitalist Progress Note ---
Date of Service July 29, 2018 Assessment & Plan (1) Chest pain: NSTEMI Resolving with nitro but returning Trop peaked at 2.8 ECHO pending Abd US pending, rupture/tear unlikely given VSS and Hb stable Ceftriaxone for PNA noted on CXR however this does not seem substantial enough to cause sx described Lyme pending; awaiting final serum. EKG is paced Follows with Dr. Eduardo garcia PE unlikely given therapeutic on coumadin Echo shows EF:55-60%; MILD HYPOKINESIS, involving mid to distal anterior wall; L atrium is severely dilated Cath Summary: 1. Severe multi vessel coronary artery disease -95% acute mid RCA stenosis. Patent proximal, distal RCA stents. Provides co llaterals to LAD Chronic 100% mid LAD occlusion Chronic 100% mid circumflex occlusion 2. Elevated intracardiac filling pressure 3. Successful PCI of mid RCA with single drug-eluting stent (4.0 x 26 [place]; postdilated to 5.0). 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 IV Lasix for elevated filling pressures Continue statin, and ASCVD risk factor modification Consult cardiac Rehab (2) Hypertension: continue home meds (3) Ulcerative colitis: continue home meds (4) Acute on chronic diastolic (congestive) heart failure: continue home meds (5) Aneurysm of infrarenal abdominal aorta: Monitored Q6m with US, next was scheduled for later this month Ordering now as part of workup from above Hb is stable, VSS, and CXR not suggestive of rupture Follows with Dr. Martinez if needed States last imaging was 6mm, not in our system (6) CAD (coronary artery disease): Hx of stents Last cath 2016 (7) PE (pulmonary embolism): Hx of PE/DVT On coumadin Follows with coag clinic (8) DVT prophylaxis: Therapeutic on coumadin Spent 35 minutes in managemnet of patient. Physical Exam Vital Signs (Past 24 Hours): Last Vital Signs Temp 37.0 C 07/29/18 20:32 Pulse 61 07/29/18 21:01 Resp 20 07/29/18 21:01 BP 108/70 07/29/18 21:00 Pulse Ox 92 07/29/18 21:01
[2018-07-30 04:51] LABS: Basophils # (auto) 0.02 K/uL (0-0.2); Basophils % (auto) 0.3 %; Eosinophils # (auto) 0.11 K/uL (0-0.5); Eosinophils % (auto) 1.6 %; Hematocrit (blood only) 37.2 % (37-47); Hemoglobin 12.4 g/dL (12.0-16.0); Immature Granulocytes # (auto) 0.02 K/uL (0.00-0.02); Immature Granulocytes % (auto) 0.3 %; Lymphocytes # (auto) 1.01 K/uL (1.2-3.4); Lymphocytes % (auto) 15.1 %; Mean Corpuscular Hgb Conc 33.3 g/dL (32-36); Mean Corpuscular Volume 91.4 fL (80-100); Mean Platelet Volume 10.3 fL (7.4-10.4); Monocytes % (auto) 10.5 %; Neutrophils # (auto) 4.83 K/uL (1.4-6.5); Neutrophils % (auto) 72.2 %; Platelet Count 172 K/uL (130-400); RDW Coefficient of Variation 13.5 % (11.5-14.5); RDW Standard Deviation 44.7 fL (36.4-46.3); Red Blood Count 4.07 M/uL (4.2-5.4); White Blood Count 6.69 K/uL (4.8-10.8)
[2018-07-30 05:01] LABS: Prothrombin Time 28.3 Seconds (9.0-12.0)
[2018-07-30 05:14] LABS: Albumin Level 2.8 gm/dl (3.4-5.0); BUN Creatinine Ratio 22.9 (10-20); Bilirubin Direct 0.1 mg/dl (0-0.2); Calcium 8.4 mg/dl (8.5-10.1); Creatinine Clr Calc Pharmacy 41.1 ml/min; Est GFR (African American) 59.1; Magnesium 1.5 mg/dl (1.8-2.4); Potassium 3.4 mmol/L (3.5-5.1)
[2018-07-30 05:16] LABS: Bilirubin,Total 0.5 mg/dl (0.2-1); Total Protein 6.1 gm/dl (6.4-8.2)
[2018-07-30] MEDS ORDERED: POTASSIUM CHLORIDE / WTR 10 MEQ/100 ML PLCT IV ONE (06:36)
--- NOTE | 2018-07-30 07:03 | Critical Care Progress Note ---
Date of Service July 30, 2018 Assessment & Plan (1) Admitted to intensive care unit: Reason Critically Ill: 88-year-old female with acute NSTEMI s/p PTCA w/ SYLVIE x1 to the RCA. NEURO - * CAM ICU: NEGATIVE * Pain: Acetaminophen, Ultram PRN CARDIAC/VASCULAR - * Acute NSTEMI s/p PTCA w/ SYLVIE x1 to the RCA: * Patient reliant on RCA for a majority of cardiac perfusion 2/2 chronic occlusion of LAD. * Successful PCI w/ near complete resolve of CP. * Elevated cardiac filling pressures. Addressed w/ one time dose of IV Lasix. * Continue home ASCVD Rx per typical. * Monitor on telemetry. * pt endorses some Chest pressure today, will monitor clinically * 6.7cm AAA RESPIRATORY - * Monitor for s/s volume overload w/ elevated filling pressures. * Continue to wean oxygen as tolerated * currently satting 93% on 3 lpm NC GI/NUTRITION - * AHA Diet RENAL/LYTES - * Mild hypokalemia * given 30 meq of kcl today, * continue to monitor - * No concerns at this time. ENDO - * No h/o DM or Thyroid Dz. * BSGs per unit protocol. ISS --> gtt per unit policy. HEME - * Stable H&H: hgb dropped to 12.4 today likely dilutional as other wbc, plt, hct dropped by similar values * Will monitor closely. ID - * has been afebrile, no concerns for infection at present LINES/IV ACCESS - * PIVs x2 DVT PROPHYLAXIS - * Coumadin -Continue Holding Coumadin : Therapeutic INR 3.0 * SCDs Thank you for allowing us to be part of this patient's care. Please refer to Dr. Montenegro's documentation for any further recommendations. (2) Non-ST elevation MN (NSTEMI): (3) CAD (coronary artery disease): (4) S/P PTCA (percutaneous transluminal coronary angioplasty): (5) S/P drug eluting coronary stent placement: (6) Aneurysm of infrarenal abdominal aorta: Supervising Physician Co-Signing Physician Notes Dr. Rowell was resident physician during care of patient. I separately evaluated patient for arias portions of the history and the exam. I was present during the critical portion of medical decision making, and I discussed the case with the resident. I generally agree with the findings and plan. Patient was discussed in multidisciplinary rounds, critical care issues have resolved patient stable for downgrade to telemetry status. Subjective Pt is doing well this morning lying in bed in NAD with daughter at her bedside. Pt did will overnight not requiring any intervention. Pt tolerated breakfast, voiding on her own, stooling, slept well overnight. Pt endorse a small amount of chest pressure but this has not changed nor increased in intensity. I advised her to monitor her syx throughout the day and should the pain change, become worse, or become concerning to alert nursing. Answered all questions, no acute concerns at present. Physical Exam Vital Signs (Past 24 Hours): Last Vital Signs Temp 36.8 C 07/30/18 04:00 Pulse 61 07/30/18 04:00 Resp 18 07/30/18 04:00 BP 107/63 07/30/18 04:00 Pulse Ox 93 07/30/18 04:00 Constitutional: WD/WN, vitals as above Eyes: normal visual de oliveira by confrontation and + anicteric sclerae ENMT: Mallampati Class: IV Neck: normal visual inspection and trachea midline Respiratory: normal respiratory effort, lungs clear to auscultation Cardiovascular: Rate/Rhythm: regular rate and regular rhythm Heart Sounds: + murmur (2/6 creshendo-decreshendo r sternal border) Gastrointestinal (Abdomen): Inspection/Auscultation: abdomen not distended Percussion/Palpation: abdomen soft; abdomen nontender Musculoskeletal: Head/Neck/Chest: normocephalic and head atraumatic Skin: no rashes, warm and dry Neurologic: awake; not confused Speech / Cognition: normal speech Psychiatric: A+Ox3, euthymic affect Results & Data Laboratory Results 07/30/18 04:34 07/30/18 04:34 07/30/18 07/30/18 07/30/18 Range/Units 04:34 04:34 04:34 WBC 6.69 (4.8-10.8) K/uL RBC 4.07 L (4.2-5.4) M/uL Hgb 12.4 (12.0-16.0) g/dL Hct 37.2 (37-47) % MCV 91.4 (80-100) fL MCH 30.5 (25-34) pg MCHC 33.3 (32-36) g/dL RDW Std Deviation 44.7 (36.4-46.3) fL RDW Coeff of Boy 13.5 (11.5-14.5) % Plt Count 172 (130-400) K/uL MPV 10.3 (7.4-10.4) fL Immature Gran % (Auto) 0.3 % Neut % (Auto) 72.2 % Lymph % (Auto) 15.1 % [place] % (Auto) 10.5 % Eos % (Auto) 1.6 % Baso % (Auto) 0.3 % Immature Gran # (Auto) 0.02 (0.00-0.02) K/uL Neut # (Auto) 4.83 (1.4-6.5) K/uL Lymph # (Auto) 1.01 L (1.2-3.4) K/uL [place] # (Auto) 0.70 H (0.11-0.59) K/uL Eos # (Auto) 0.11 (0-0.5) K/uL Baso # (Auto) 0.02 (0-0.2) K/uL PT 28.3 H (9.0-12.0) Seconds INR 3.0 H (0.9-1.1) Activ Coag Time Kaolin (94-140) SECONDS Sodium 140 (136-145) mmol/L Potassium 3.4 L (3.5-5.1) mmol/L Chloride 107 (98-107) mmol/L Carbon Dioxide 29 (21-32) mmol/L Anion Gap 4.0 (3-11) BUN 23 H (7-18) mg/dl Creatinine 1.00 (0.6-1.2) mg/dl Est Cr Clr Drug Dosing 41.1 ml/min Est GFR ( Amer) 59.1 Est GFR (Non-Af Amer) 51.0 BUN/Creatinine Ratio 22.9 H (10-20) Glucose 98 (70-99) mg/dl POC Glucose (70-99) Calcium 8.4 L (8.5-10.1) mg/dl Phosphorus 3.0 (2.5-4.9) mg/dl Magnesium 1.5 L (1.8-2.4) mg/dl Total Bilirubin 0.5 (0.2-1) mg/dl Direct Bilirubin 0.1 (0-0.2) mg/dl AST 89 H (15-37) U/L ALT 28 (12-78) U/L Alkaline Phosphatase 117 (45-117) U/L Troponin I (0-0.045) ng/ml Total Protein 6.1 L (6.4-8.2) gm/dl Albumin 2.8 L (3.4-5.0) gm/dl Procalcitonin (0-0.5) ng/ml 07/29/18 07/29/18 07/29/18 Range/Units 20:28 16:08 15:42 WBC (4.8-10.8) K/uL RBC (4.2-5.4) M/uL Hgb (12.0-16.0) g/dL Hct (37-47) % MCV (80-100) fL MCH (25-34) pg MCHC (32-36) g/dL RDW Std Deviation (36.4-46.3) fL RDW Coeff of Boy (11.5-14.5) % Plt Count (130-400) K/uL MPV (7.4-10.4) fL Immature Gran % (Auto) % Neut % (Auto) % Lymph % (Auto) % [place] % (Auto) % Eos % (Auto) % Baso % (Auto) % Immature Gran # (Auto) (0.00-0.02) K/uL Neut # (Auto) (1.4-6.5) K/uL Lymph # (Auto) (1.2-3.4) K/uL [place] # (Auto) (0.11-0.59) K/uL Eos # (Auto) (0-0.5) K/uL Baso # (Auto) (0-0.2) K/uL PT (9.0-12.0) Seconds INR (0.9-1.1) Activ Coag Time Kaolin 263 H 224 H (94-140) SECONDS Sodium (136-145) mmol/L Potassium (3.5-5.1) mmol/L Chloride (98-107) mmol/L Carbon Dioxide (21-32) mmol/L Anion Gap (3-11) BUN (7-18) mg/dl Creatinine (0.6-1.2) mg/dl Est Cr Clr Drug Dosing ml/min Est GFR ( Amer) Est GFR (Non-Af Amer) BUN/Creatinine Ratio (10-20) Glucose (70-99) mg/dl POC Glucose 151 H (70-99) Calcium (8.5-10.1) mg/dl Phosphorus (2.5-4.9) mg/dl Magnesium (1.8-2.4) mg/dl Total Bilirubin (0.2-1) mg/dl Direct Bilirubin (0-0.2) mg/dl AST (15-37) U/L ALT (12-78) U/L Alkaline Phosphatase (45-117) U/L Troponin I (0-0.045) ng/ml Total Protein (6.4-8.2) gm/dl Albumin (3.4-5.0) gm/dl Procalcitonin (0-0.5) ng/ml 07/29/18 07/29/18 07/29/18 Range/Units 12:37 11:57 09:40 WBC (4.8-10.8) K/uL RBC (4.2-5.4) M/uL Hgb (12.0-16.0) g/dL Hct (37-47) % MCV (80-100) fL MCH (25-34) pg MCHC (32-36) g/dL RDW Std Deviation (36.4-46.3) fL RDW Coeff of Boy (11.5-14.5) % Plt Count (130-400) K/uL MPV (7.4-10.4) fL Immature Gran % (Auto) % Neut % (Auto) % Lymph % (Auto) % [place] % (Auto) % Eos % (Auto) % Baso % (Auto) % Immature Gran # (Auto) (0.00-0.02) K/uL Neut # (Auto) (1.4-6.5) K/uL Lymph # (Auto) (1.2-3.4) K/uL [place] # (Auto) (0.11-0.59) K/uL Eos # (Auto) (0-0.5) K/uL Baso # (Auto) (0-0.2) K/uL PT (9.0-12.0) Seconds INR (0.9-1.1) Activ Coag Time Kaolin (94-140) SECONDS Sodium (136-145) mmol/L Potassium (3.5-5.1) mmol/L Chloride (98-107) mmol/L Carbon Dioxide (21-32) mmol/L Anion Gap (3-11) BUN (7-18) mg/dl Creatinine (0.6-1.2) mg/dl Est Cr Clr Drug Dosing ml/min Est GFR ( Amer) Est GFR (Non-Af Amer) BUN/Creatinine Ratio (10-20) Glucose (70-99) mg/dl POC Glucose 102 H (70-99) Calcium (8.5-10.1) mg/dl Phosphorus (2.5-4.9) mg/dl Magnesium (1.8-2.4) mg/dl Total Bilirubin (0.2-1) mg/dl Direct Bilirubin (0-0.2) mg/dl AST (15-37) U/L ALT (12-78) U/L Alkaline Phosphatase (45-117) U/L Troponin I 2.290 H* (0-0.045) ng/ml Total Protein (6.4-8.2) gm/dl Albumin (3.4-5.0) gm/dl Procalcitonin < 0.05 (0-0.5) ng/ml Medications Administered Current Inpatient Medications Acetaminophen (Tylenol) 650 mg PO Q4H PRN PRN Reason: Pain or Fever Stop: 08/27/18 19:12 Last Admin: 07/29/18 07:30 Dose: 650 mg Documented by: Al Hydrox/Mg Hydrox/Simethicone (Maalox) 30 ml PO Q8H PRN PRN Reason: DYSPEPSIA Stop: 08/27/18 19:34 Clonazepam (Klonopin) 0.5 mg PO BID [facility] Stop: 08/27/18 20:59 Last Admin: 07/30/18 08:35 Dose: 0.5 mg Documented by: Clopidogrel Bisulfate (Plavix) 75 mg PO DAILY [facility] Stop: 08/28/18 08:59 Last Admin: 07/30/18 08:36 Dose: 75 mg Documented by: Furosemide (Lasix) 20 mg PO DAILY [facility] Stop: 08/28/18 08:59 Last Admin: 07/29/18 09:55 Dose: Not Given Documented by: Gabapentin (Neurontin) 200 mg PO TID [facility] Stop: 08/27/18 20:59 Last Admin: 07/30/18 08:36 Dose: 200 mg Documented by: Heparin Sodium (Beef Lung) (Heparin Sod 10 Unit/Ml Flush) 5 ml FLUSH PRN PRN PRN Reason: Flush Stop: 08/28/18 14:25 Isosorbide Mononitrate (Imdur Extended Rel) 60 mg PO BID [facility] Stop: 08/27/18 20:59 Last Admin: 07/30/18 08:36 Dose: 60 mg Documented by: Magnesium Hydroxide (Milk Of Magnesia) 30 ml PO Q12H PRN PRN Reason: Constipation Stop: 08/27/18 19:12 Magnesium Oxide (Mag-Ox) 400 mg PO HS [facility] Stop: 08/29/18 20:59 Metoprolol Succinate (Toprol Xl) 25 mg PO DAILY [facility] Stop: 08/28/18 08:59 Last Admin: 07/30/18 08:36 Dose: 25 mg Documented by: Multivitamins (Multivitamin Tab) 1 tab PO QPM [facility] Stop: 08/27/18 20:59 Last Admin: 07/29/18 20:11 Dose: 1 tab Documented by: Ondansetron HCl (Zofran) 4 mg IV Q6H PRN PRN Reason: Nausea Stop: 08/27/18 19:12 Oxcarbazepine (Trileptal) 300 mg PO QID [facility] Stop: 08/27/18 20:59 Last Admin: 07/30/18 08:36 Dose: 300 mg Documented by: Pantoprazole Sodium (Protonix) 40 mg PO DAILY [facility] Stop: 08/28/18 08:59 Last Admin: 07/30/18 08:36 Dose: 40 mg Documented by: Ranolazine (Ranexa) 500 mg PO Q12 [facility] Stop: 08/27/18 20:59 Last Admin: 07/30/18 08:35 Dose: 500 mg Documented by: Sodium Chloride (Sodium Chloride) 1 gm PO DAILY [facility] Stop: 08/28/18 08:59 Last Admin: 07/30/18 08:35 Dose: 1 gm Documented by: Tramadol HCl (Ultram) 50 mg PO BID PRN PRN Reason: Pain Stop: 08/27/18 19:12 Resident Activity Tracking Resident Involvement: Resident Care Provided Care Provided: Adult Hospital Medicine (ICU)
--- NOTE | 2018-07-30 07:11 | XRay Report ---
XR chest 1V portable CLINICAL HISTORY: f/u dyspnea COMPARISON STUDY: 07/29/2018 FINDINGS: Cardiomegaly somewhat improved from the prior study. Prominent pulmonary vasculature dimini shed. Chronic elevation left hemidiaphragm. Decreased volume left effusion. IMPRESSION: Improved exam with improved component of congestive failure. Diminished left pleural eff usion as well as improved cardiac size. The above report was generated using voice recognition software. It may contain grammatical, syntax or spelling errors. Electronically signed by: Adria Smiley M.D. 07/30/2018 7:10 AM
[2018-07-30] MEDS ORDERED: POTASSIUM CHLORIDE 10 MEQ TABCR PO STA (07:42)
[2018-07-30] MEDS: RANOLAZINE 500 MG ER TAB PO SCH ×2 (08:35→21:01)
[2018-07-30] MEDS: clonazePAM 0.5 MG TAB PO SCH ×2 (08:35→21:01)
[2018-07-30] MEDS: SODIUM CHLORIDE 1 GM TABLET PO SCH (08:35)
[2018-07-30] MEDS: GABAPENTIN 100 MG CAP PO SCH ×3 (08:36→21:01)
[2018-07-30] MEDS: ISOSORBIDE MONO EXTENDED REL 60 MG TABCR PO SCH ×2 (08:36→17:26)
[2018-07-30] MEDS: PANTOprazole 40 MG TAB PO SCH (08:36)
[2018-07-30] MEDS: CLOPIDOGREL BISULFATE 75 MG TAB PO SCH (08:36)
[2018-07-30] MEDS: OXcarbazepine 150 MG TABLET PO SCH ×4 (08:36→21:22)
[2018-07-30] MEDS: METOPROLOL SUCC 25MG EXT REL TAB PO SCH (08:36)
--- NOTE | 2018-07-30 09:36 | Cardiology Progress Note ---
Date of Service July 30, 2018 She is awake alert and oriented this morning she feels much better. She ate her breakfast. She has no central chest tightness or chest pressure. She does not appear short of breath talking in sentences. She denies any lightheadedness or dizziness. Overall she feels better than yesterday. She does note that she does not feel strong enough to go home independently. Physical Exam Vital Signs (Past 24 Hours): Last Vital Signs Temp 36.5 C 07/30/18 08:00 Pulse 64 07/30/18 08:00 Resp 20 07/30/18 08:00 BP 113/79 07/30/18 08:00 Pulse Ox 92 07/30/18 08:00 LM -luminal irregularities LAD -chronic 100% mid occlusion after takeoff of small first diagonal. Diagonal with mild diffuse disease. Circumflex -chronic 100% mid occlusion after takeoff of small OM 2. OM 2 with severe diffuse disease RCA -very large, dominant vessel, patent proximal stent, 95+% mid segment disease, widely patent distal stent. Large PLB without significant disease. Large right PDA without significant disease and provides right to left epicardial collateral to LAD. LVEDP -29 -- PCI -- Antithrombotic therapy: Heparin, clopidogrel Procedure: Mid RCA lesion predilated with 2.5 compliant balloon Dilated lesion stented with 4.0 x 26 mm Santosh drug-eluting stent GENERAL: She is awake, alert, oriented x3. She looks much better than yesterday HEENT: Mildly reduced carotid upstrokes. She has bilateral carotid bruits. Her sclerae are anicteric. Her hearing is normal. LUNGS: Faint Crackles in the bases bilaterally. No rhonchi or wheezing. HEART: Regular rate and rhythm. She has a 2/6 crescendo-decrescendo murmur, which is mid to late peaking at the right sternal border. ABDOMEN: Soft, nontender, nondistended. Positive bowel sounds. EXTREMITIES: No clubbing or cyanosis or edema PSYCHIATRIC: Affect appeared appropriate. NEUROLOGIC: She is awake, alert and oriented x3. IMPRESSION: 1. Unstable angina, now with a non-ST elevation myocardial infarction. 1B. Status post PCI of a high-grade 95% mid RCA lesion June 28, 2018 2. Severe 3-vessel coronary artery disease, essentially living off a large dominant RCA providing collaterals to the LAD territory. 3. Status post angioplasty and stenting to the proximal RCA and to the distal RCA involving the PDA and the posterolateral branch, 06/2014. 4. Moderate aortic stenosis. 5. Dual chamber pacemaker. 6. 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 7. 6.7 cm AAA, followed by Dr. Martinez. She looks much better this morning. She still has some crackles in the bases I would recommend giving her Lasix 20 mg IV x1 dose. She remains on the rest of her outpatient medications currently. She does have some arm discomfort the question is whether this is an ongoing anginal equivalent. We know even after her catheterization in 2014 she had chronic angina related to her LAD and circumflex disease. From my standpoint she can go to the second floor. I would not give her any Coumadin today given her INR rising after the catheterization. Her right radial pulse is 2+ in her right hand is warm to touch. She does have some ecchymosis there which will be worsened by a higher INR I would not recommend triple therapy and at this point would leave her on Plavix and Coumadin. I would have physical therapy assess her with regards to the needs to go to short-term rehab before going home.
[2018-07-30] MEDS ORDERED: FUROSEMIDE 20 MG in SYRINGE 0 ML IV ONE (09:40)
[2018-07-30] MEDS: MULTIVITAMIN TAB PO SCH (17:27)
[2018-07-30] MEDS ORDERED: MAGNESIUM OXIDE 400 MG TAB PO SCH (21:00)
--- NOTE | 2018-07-30 22:33 | Hospitalist Progress Note ---
Date of Service July 30, 2018 Assessment & Plan (1) Chest pain: NSTEMI Resolving with nitro but returning Trop elevated to 0.432, serials pending ECHO REVIEWED Abd US REVIEWED, rupture/tear unlikely given VSS and Hb stable Ceftriaxone for PNA noted on CXR however this does not seem substantial enough to cause sx described Lyme pending EKG is paced Follows with Dr. Clark, c/s pending Nitro paste PE unlikely given therapeutic on coumadin 1. Severe multi vessel coronary artery disease -95% acute mid RCA stenosis. Patent proximal, distal RCA stents. Provides collaterals to LAD Chronic 100% mid LAD occlusion Chronic 100% mid circumflex occlusion 2. Elevated intracardiac filling pressure 3. Successful PCI of mid RCA with single drug-eluting stent (4.0 x 26 Santosh; postdilated to 5.0). Recommendations: To ICU for continued monitoring Reloaded with clopidogrel 300 mg in labor arbitrator Continue dual-antiplatelet therapy for at least one year, likely indefinitely Continue nitro infusion for residual chest pain, wean off as chest pain resolves. IV Lasix for elevated filling pressures Continue statin, and ASCVD risk factor modification Consult cardiac Rehab (2) Hypertension: continue home meds (3) Ulcerative colitis: continue home meds (4) Acute on chronic diastolic (congestive) heart failure: continue home meds (5) Aneurysm of infrarenal abdominal aorta: Monitored Q6m with US, next was scheduled for later this month Ordering now as part of workup from above Hb is stable, VSS, and CXR not suggestive of rupture Follows with Dr. Martinez if needed States last imaging was 6mm, not in our system (6) CAD (coronary artery disease): Hx of stents Last cath 2016 (7) PE (pulmonary embolism): Hx of PE/DVT On coumadin Follows with coag clinic (8) DVT prophylaxis: Therapeutic on coumadin Subjective 88 yo female, she reports feeling much better today. She has no new complaints today. She denies any chest pain today. Review of Systems All systems reviewed & are unremarkable except as noted in HPI & below Physical Exam Vital Signs (Past 24 Hours): Last Vital Signs Temp 37.0 C 07/30/18 20:05 Pulse 63 07/30/18 20:05 Resp 16 07/30/18 20:05 BP 125/80 07/30/18 20:05 Pulse Ox 91 07/30/18 20:05 Physical Exam: Constitutional: WD/WN, vitals as above Eyes: normal visual de oliveira by confrontation and + anicteric sclerae Neck: normal visual inspection and trachea midline Respiratory: normal respiratory effort, lungs clear to auscultation Cardiovascular: Rate/Rhythm: regular rate and regular rhythm Murmur noted No abnormal abd sounds Gastrointestinal (Abdomen): Inspection/Auscultation: abdomen not distended Percussion/Palpation: abdomen soft; abdomen nontender Musculoskeletal: Head/Neck/Chest: normocephalic and head atraumatic negative for edema, peripheral pulses intact Skin: no rashes, warm and dry Neurologic: awake; not confused Speech / Cognition: normal speech Psychiatric: A+Ox3, euthymic affect
[2018-07-31 00:30] LABS: 18KDIGG Band REACTIVE (NONREACTIVE); 23KDIGG Band REACTIVE (NONREACTIVE); 23KDIGM Band REACTIVE (NONREACTIVE); 28KDIGG Band REACTIVE (NONREACTIVE); 30KDIGG Band NONREACTIVE (NONREACTIVE); 39KDIGG Band NONREACTIVE (NONREACTIVE); 39KDIGM Band REACTIVE (NONREACTIVE); 41KDIGG Band NONREACTIVE (NONREACTIVE); 41KDIGM Band NONREACTIVE (NONREACTIVE); 45KDIGG Band NONREACTIVE (NONREACTIVE); 58KDIGG Band REACTIVE (NONREACTIVE); 66KDIGG Band NONREACTIVE (NONREACTIVE); 93KDIGG Band REACTIVE (NONREACTIVE); Lyme Antibodies, WB IgG POSITIVE (NEGATIVE); Lyme Antibodies, WB IgM POSITIVE (NEGATIVE)
[2018-07-31 06:08] LABS: INR 1.8 (0.9-1.1); Prothrombin Time 17.8 Seconds (9.0-12.0)
[2018-07-31] MEDS: GABAPENTIN 100 MG CAP PO SCH ×2 (06:42→12:40)
[2018-07-31] MEDS: ACETAMINOPHEN 325 MG TAB PO PRN (06:47)
[2018-07-31] MEDS: clonazePAM 0.5 MG TAB PO SCH (08:17)
[2018-07-31] MEDS: CLOPIDOGREL BISULFATE 75 MG TAB PO SCH (08:18)
[2018-07-31] MEDS: PANTOprazole 40 MG TAB PO SCH (08:18)
[2018-07-31] MEDS: METOPROLOL SUCC 25MG EXT REL TAB PO SCH (08:18)
[2018-07-31] MEDS: SODIUM CHLORIDE 1 GM TABLET PO SCH (08:18)
[2018-07-31] MEDS: RANOLAZINE 500 MG ER TAB PO SCH (08:18)
[2018-07-31] MEDS: ISOSORBIDE MONO EXTENDED REL 60 MG TABCR PO SCH (08:18)
[2018-07-31] MEDS: OXcarbazepine 150 MG TABLET PO SCH ×2 (08:39→12:40)
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
[2018-07-31] MEDS ORDERED: ROSUVASTATIN CALCIUM 20 MG TAB PO SCH (09:15)
[2018-07-31] MEDS ORDERED: WARFARIN SOD 6 MG TAB PO STA (11:25)
[2018-07-31 11:48] LABS: BUN Creatinine Ratio 27.1 (10-20); Calcium 8.7 mg/dl (8.5-10.1); Est GFR (African American) 52.6; Est GFR (Non-African American) 45.4; Potassium 3.7 mmol/L (3.5-5.1)
--- NOTE | 2018-08-08 09:16 | Discharge Summary ---
Date of Service July 31, 2018 Admission HPI Per Admitting Provider 88 y/o F c/o chest pain. Pt states that she has been requiring nitro multiple times a day for the last several weeks. Over the last few days, she has needed to do multiple "cycles" of nitro to resolve her chest pain. Prior to coming to the ED she took 4-5 "cycles" of nitro, which is described as taking a nitro x3 [id number]. It does resolve after each cycle, but then comes back. Chest pain is substernal and goes mostly to her L shoulder and UE but does go to the R shoulder at times as well. She states that she is having worsening LUIS. She mostly cruises her furniture around her home or uses a walker and this is becoming a struggle for her recently. She has been eating without issue. Pt denies fever, abd pain, n/v/c/d, LE pain or swelling. Son has a photo of the basic report of pt's last cath in 2017. There are several areas noted with 100% blockage, several with 30-40% blockage. Pt follows with Dr. Martinez for an AAA. She states she has US monitoring Q6 months, next being due later this month. She states the last US measured her AAA at 6mm and stable. She has had no lightheadedness or dizziness with these sx. Principal Diagnosis NSTEMI Discharge Exam Constitutional: WD/WN, vitals as above Eyes: normal visual de oliveira by confrontation and + anicteric sclerae Neck: normal visual inspection and trachea midline Respiratory: normal respiratory effort, lungs clear to auscultation Cardiovascular: Rate/Rhythm: regular rate and regular rhythm Murmur noted No abnormal abd sounds Gastrointestinal (Abdomen): Inspection/Auscultation: abdomen not distended Percussion/Palpation: abdomen soft; abdomen nontender Musculoskeletal: Head/Neck/Chest: normocephalic and head atraumatic negative for edema, peripheral pulses intact Skin: no rashes, warm and dry Neurologic: awake; not confused Speech / Cognition: normal speech Psychiatric: A+Ox3, euthymic affect Discharge Data Allergies Allergy/AdvReac Type Severity Reaction Status Date / Time sodium lauryl sulfate Allergy Intermediate HIVES & Verified 07/28/18 17:13 WELTS bee venom protein (honey bee) Allergy Unknown ANAPHYLAXIS Verified 07/28/18 17:13 Consultations 07/28/18 15:32 ED Decision to Admit Stat 07/28/18 19:13 Consult Cardiology Routine Consult Case Management - Discharge Planning Routine 07/29/18 08:36 Consult Rn Long Term Care Routine 07/29/18 08:49 Consult Cardiac Catheterization Routine Procedures Performed Operation Date: 07/29/18 12:00 Actual Procedures p Cath, Left with Cors and Vent - Juan C Barajas MD s Cineradiography w/Routine Exam - Juan C Barajas MD s Drug Eluting Stent SGl Vessel - Juan C Barajas MD Ordered Studies 07/29/18 abdominal aortic aneurysm Urgent 07/29/18 15:15 CL Cath Imgs for PACS use only Routine Hospital Course (1) Chest pain: NSTEMI Resolving with nitro but returning Trop elevated to 0.432, serials pending ECHO REVIEWED Abd US REVIEWED, rupture/tear unlikely given VSS and Hb stable Ceftriaxone for PNA noted on CXR however this does not seem substantial enough to cause sx described Lyme pending EKG is paced Follows with Dr. Clark, Nitro paste PE unlikely given therapeutic on coumadin [place] 1. Severe multi vessel coronary artery disease -95% acute mid RCA stenosis. Patent proximal, distal RCA stents. Provides collaterals to LAD Chronic 100% mid LAD occlusion Chronic 100% mid circumflex occlusion 2. Elevated intracardiac filling pressure 3. Successful PCI of mid RCA with single drug-eluting stent (4.0 x 26 [place]; postdilated to 5.0). Recommendations: To ICU for continued monitoring Reloaded with clopidogrel 300 mg in medical laboratory technicians Continue dual-antiplatelet therapy for at least one year, likely indefinitely Continue nitro infusion for residual chest pain, wean off as chest pain resolves. IV Lasix for elevated filling pressures Continue statin, and ASCVD risk factor modification switch her over to Crestor 20 mg daily. Cardio will check her lipids as an outpatient in approximately 6 weeks. In addition I would recommend a BMP and a CBC in a week's time just to make sure that her hemoglobin, platelets, and creatinine are stable. Will recommend checking magesium as well. Plan was to discharge the patient the following day, however, patient requested to be discharged this afternoon. Family aware and are agreeable with discharge. (2) Hypertension: continue home meds (3) Ulcerative colitis: continue home meds (4) Acute on chronic diastolic (congestive) heart failure: continue home meds (5) Aneurysm of infrarenal abdominal aorta: Monitored Q6m with US, next was scheduled for later this month Ordering now as part of workup from above Hb is stable, VSS, and CXR not suggestive of rupture Follows with Dr. Martinez if needed States last imaging was 6mm, not in our system (6) CAD (coronary artery disease): Hx of stents Last cath 2017 (7) PE (pulmonary embolism): Hx of PE/DVT On coumadin Follows with [facility] (8) DVT prophylaxis: Therapeutic on coumadin Total Time Total Time Spent Total Time Spent (In Minutes): 32 Total Time Includes: Examination of the Patient, Discharge Planning and Medication Reconciliation Discharge Plan Discharge Items Patient Disposition: Home - Home Health Services Reason For Visit: CHEST PAIN Discharge Diagnosis: NSTEMI Discharge Goals: Decrease discomfort and Diagnostic testing Activity: Resume your previous activity Non-emergency contact: Primary Care Provider Call non-emergency contact if: you have any medication questions Follow-up/Referrals: Julius Zamora MD [Primary Care Provider] - (the office will call you with an appointment date and time) Rafael Clark DO [Physician] - (the office will contact you with an appointment date and time) Diet: Regular Addtl Provider Instructions: Followup with PCP in 1-2 weeks Followup with Cardio in 1-2 weeks. Prescriptions: New magnesium oxide 400 mg (241.3 mg magnesium) Tablet 400 mg PO HS Qty: 30 RF: 0 rosuvastatin [Crestor] 20 mg Tablet 20 mg PO QAM Qty: 30 RF: 0 Continued clonazepam 0.5 mg Tablet 0.5 mg PO BID RF: 0 sodium chloride 1 gram Tablet 1 g PO DAILY RF: 0 oxcarbazepine [Trileptal] 300 mg Tablet 300 mg PO QID RF: 0 clopidogrel [Plavix] 75 mg Tablet 75 mg PO DAILY RF: 0 isosorbide mononitrate 60 mg Tablet Extended Release 24 Hr 60 mg PO BID RF: 0 pantoprazole [Protonix] 40 mg Tablet,Delayed Release (Dr/Ec) 40 mg PO DAILY RF: 0 nitroglycerin [Nitrostat] 0.4 mg Tablet, Sublingual 0.4 mg Sublingual DIRECTED PRN (Reason: Chest Pain) RF: 0 metoprolol succinate [Toprol XL] 25 mg Tablet Extended Release 24 Hr 25 mg PO DAILY RF: 0 ergocalciferol (vitamin D2) [Drisdol] 50,000 unit Capsule 50,000 unit PO MO RF: 0 epinephrine [EpiPen 2-Percy] 0.3 mg/0.3 mL Auto-Injector 0.3 mg IM DIRECTED PRN (Reason: Allergic Reaction) RF: 0 multivitamin with minerals Tablet 1 tab PO QPM RF: 0 ranolazine [Ranexa] 500 mg Tablet Extended Release 12 Hr 500 mg PO Q12H RF: 0 warfarin [Coumadin] 6 mg tablet 6 mg PO DAILY RF: 0 tramadol 50 mg Tablet 50 - 100 mg PO BID PRN (Reason: Pain) RF: 0 furosemide [Lasix] 20 mg tablet 20 mg PO DAILY RF: 0 gabapentin [Neurontin] 100 mg capsule 200 mg PO TID RF: 0 Gaviscon Extra Strength 160-105 mg Tablet,Chewable PO UD PRN (Reason: Acid Reflux) RF: 0 acetaminophen [Tylenol] 325 mg Capsule 325 - 650 mg PO Q4 PRN (Reason: Pain) RF: 0 Discontinued amlodipine [Norvasc] 5 mg tablet 5 mg PO TID RF: 0 Stand-Alone Forms: [facility] Discharge Orders: Discharge Order (Routine); Ordered 07/31/18 Ordered By: Onel Jonas Admission Data Admit Date/Time: 07/28/18 16:40 Attending Provider: Onel Jonas Admit Provider: Linette Mcgarry Primary Care Provider: Julius Zamora Other Providers: Rafael Clark ; Rafa Montenegro ; Juan C Barajas Service: Telemetry Other Interventions: Discharge Summary Assessment (RN) Last Done: 07/31/18 15:47 DC Date/Time DO NOT enter until pt leaves facility: 07/31/18 16:50
[2018-08-25] MEDS ORDERED: ERGOCALCIFEROL 50,000 UNITS CAP PO SCH (09:00)
== END 2018-07-31 16:50 | disposition home health service (06) | DRG 246 ==
LOC: ED 13:20 → SUATTDRO 16:40 → 2S 16:40 → 1E 07-29 07:26 → 2S 07-30 13:51

== ENCOUNTER 2019-02-27 01:28 | Inpatient (IN) ==
[2019-02-27 02:23] LABS: Basophils # (auto) 0.04 K/uL (0-0.2); Basophils % (auto) 0.6 %; Eosinophils # (auto) 0.23 K/uL (0-0.5); Eosinophils % (auto) 3.6 %; Hematocrit (blood only) 33.9 % (37-47); Hemoglobin 10.8 g/dL (12.0-16.0); Immature Granulocytes # (auto) 0.02 K/uL (0.00-0.02); Immature Granulocytes % (auto) 0.3 %; Lymphocytes % (auto) 23.3 %; Mean Corpuscular Hemoglobin 30.6 pg (25-34); Mean Corpuscular Hgb Conc 31.9 g/dL (32-36); Mean Platelet Volume 10.2 fL (7.4-10.4); Monocytes # (auto) 0.58 K/uL (0.11-0.59); Neutrophils # (auto) 4.07 K/uL (1.4-6.5); Neutrophils % (auto) 63.2 %; Platelet Count 176 K/uL (130-400); RDW Coefficient of Variation 14.9 % (11.5-14.5); RDW Standard Deviation 51.1 fL (36.4-46.3); Red Blood Count 3.53 M/uL (4.2-5.4); White Blood Count 6.44 K/uL (4.8-10.8)
[2019-02-27] MEDS ORDERED: FUROSEMIDE 40 MG/4 ML VIAL IV STA (02:34)
[2019-02-27 02:46] LABS: Albumin Level 3.4 gm/dl (3.4-5.0); Calcium 9.4 mg/dl (8.5-10.1); Creatinine Clr Calc Pharmacy 39.5 ml/min; Est GFR (African American) 52.3; Est GFR (Non-African American) 45.1; INR 2.8 (0.9-1.1); Partial Thromboplastin Ratio 1.2; Partial Thromboplastin Time 31.6 Seconds (21.0-31.0); Potassium 3.9 mmol/L (3.5-5.1); Prothrombin Time 26.9 Seconds (9.0-12.0)
[2019-02-27 02:56] LABS: Albumin Globulin Ratio 0.9 (0.9-2); Bilirubin,Total 0.5 mg/dl (0.2-1); Globulin 3.8 gm/dl (2.5-4.0); Total Protein 7.2 gm/dl (6.4-8.2); Troponin I 0.055 ng/ml (0-0.045)
[2019-02-27] MEDS ORDERED: ACETAMINOPHEN 325 MG TAB PO STA (04:17)
--- NOTE | 2019-02-27 04:30 | History & Physical Report ---
Date of Service February 27, 2019 Assessment & Plan (1) Acute diastolic CHF (congestive heart failure): Admit to PCU CHF order set Echo Had recent tissue valve replacement 12 days prior Supplemental oxygen Lasix 40mg IV given in ED. I ordered another 40mg IV for am. Cardiology consult I&Os daily weights. Will follow electrolytes. Nausea and pain control. (2) Chronic kidney disease, stage II (mild): Monitor renal function. (3) CAD (coronary artery disease): Will trend trops. Continue Plavix, isosorbide, metoprolol, and prn NTG. (4) Anticoagulated on Coumadin: This due to history of PE Therapeutic with INR 2.8 Check daily INR Continue warfarin. (5) Aneurysm of infrarenal abdominal aorta: repair has been on hold per patient. 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 (7) Hypertension: Continue amlodipine and metoprolol. History of Present Illness 89 y/o female presented to the ED with non-radiating chest pain and SOB. She had a tissue valve replacement 1.5 weeks prior and has been doing well. No F/C, cough, syncope, calf pain. She has noticed slight increase in ankle edema. She takes warfarin and is therapeutic at 2.8. As I am seeing the patient, she has no chest pain. Her initial Pox was 84% on RA. This rebounded to 99% on 3L nc. Primary Care Provider: Julius Zamora MD Allergies Allergy/AdvReac Type Severity Reaction Status Date / Time sodium lauryl sulfate Allergy Intermediate HIVES & Verified 12/14/18 13:21 WELTS bee venom protein (honey bee) Allergy Unknown ANAPHYLAXIS Verified 12/14/18 13:21 Home Medications Home Medications Medication Instructions Recorded Confirmed Type clopidogrel [Plavix] 75 mg PO DAILY 01/16/18 02/27/19 History epinephrine [EpiPen 2-Percy] 0.3 mg IM DIRECTED PRN 01/16/18 02/27/19 History metoprolol succinate [Toprol XL] 25 mg PO DAILY 01/16/18 02/27/19 History multivitamin with minerals 1 tab PO QPM 01/16/18 02/27/19 History nitroglycerin [Nitrostat] 0.4 mg SUBLINGUAL DIRECTED PRN 01/16/18 02/27/19 History oxcarbazepine [Trileptal] 300 mg PO QID 01/16/18 02/27/19 History pantoprazole [Protonix] 40 mg PO DAILY 01/16/18 02/27/19 History ranolazine [Ranexa] 500 mg PO Q12H 01/16/18 02/27/19 History sodium chloride 1 g PO DAILY 01/16/18 02/27/19 History acetaminophen [Tylenol] 325 - 650 mg PO Q4 PRN 07/28/18 02/27/19 History furosemide [Lasix] 20 mg PO DAILY 07/28/18 02/27/19 History tramadol 50 - 100 mg PO BID PRN 07/28/18 02/27/19 History magnesium oxide 400 mg PO HS #30 tab 07/31/18 02/27/19 Rx rosuvastatin [Crestor] 20 mg PO QAM #30 tab 07/31/18 02/27/19 Rx amlodipine 5 mg tablet 5 mg PO DAILY tab 11/27/18 02/27/19 History isosorbide mononitrate ER 60 mg 60 mg PO DAILY tab 11/27/18 02/27/19 History tablet,extended release 24 hr ergocalciferol (vitamin D2) 50,000 50,000 unit PO MO #12 cap 12/14/18 02/27/19 Rx unit capsule gabapentin 300 mg capsule 300 mg PO QID 30 Days #120 cap 01/08/19 02/27/19 Rx warfarin 6 mg tablet See Rx Instructions PO DAILY tab 01/11/19 02/27/19 History Past Med/Surg History Medical History Trigeminal neuralgia (Chronic) Chronic kidney disease, stage II (mild) (Chronic) Hyponatremia (Chronic) Vitamin D deficiency (Chronic) Breast cancer Ileostomy in place HTN (hypertension) (Chronic) Aortic aneurysm (Resolved) Pulmonary embolism (Resolved) FH: total knee replacement H/O: hysterectomy Surgical History H/O total colectomy S/P breast lumpectomy H/O cardiac catheterization (Resolved) S/P shoulder surgery Family History Mother Cancer Acute myocardial infarction Uterine cancer Hypertension Father Cancer Prostate cancer Social History Preferred Language: Albanian Communication Ability: Effective Interior Systems Carpenter Required: No Beliefs That Will Affect Care: None Current Living Situation: Family Feels Safe at Home: Yes Smoking Status: Never smoker Hx Alcohol Use: No Hx Substance Use: No Review of Systems Review of Systems: Constitutional- no fever; no weight loss Eyes- no acute visual changes ENT- no sinus drainage; no pharyngitis Pulmonary- As in HPI Cardiac- As in HPI GI- no nausea, no vomiting, no diarrhea, no melena, no hematochezia - no dysuria, no hematuria Musculoskeletal- no arthralgias, no myalgias Derm- no rashes, no new skin lesions, no changing skin lesions Hematologic- + bruising to Left arm s/p valve surgery. Lymphatics- no adenopathy Endocrine- no polyuria or polydipsia; no heat or cold intolerance Neuro- no headaches, no focal neurologic symptoms Psych- no anxiety, no depression Physical Exam Physical Exam: General- adult female, NAD Head- atraumatic Eyes- PERRL, EOMI, anicteric ENT- oropharynx clear Neck- supple, no JVD, no adenopathy, no thyromegaly. Lungs- Crackles 1/[address] up b/l. Heart- regular rhythm; no murmur, no gallop, no rub appreciated Abdomen- normal bowel sounds, soft, nontender. Extremities- no pretibial edema, no calf tenderness; peripheral pulses intact Neuro- alert, oriented x 3; PERRL, EOMI; fish tender II-XII grossly intact Skin- warm & dry Results & Data Vital Signs (Past 12 Hours) Vital Signs Temp Pulse Pulse Resp BP BP Pulse Ox 02/27/19 03:55 79 20 99 02/27/19 02:32 71 23 152/78 H 97 02/27/19 01:49 63 154/83 H 98 02/27/19 01:42 84 L 02/27/19 01:38 36.3 C L 84 18 150/75 H 84 L Laboratory Results Laboratory Results WBC 6.44 K/uL (4.8-10.8) 02/27/19 01:43 RBC 3.53 M/uL (4.2-5.4) L 02/27/19 01:43 Hgb 10.8 g/dL (12.0-16.0) L 02/27/19 01:43 Hct 33.9 % (37-47) L 02/27/19 01:43 MCV 96.0 fL (80-100) 02/27/19 01:43 MCH 30.6 pg (25-34) 02/27/19 01:43 MCHC 31.9 g/dL (32-36) L 02/27/19 01:43 RDW Std Deviation 51.1 fL (36.4-46.3) H 02/27/19 01:43 RDW Coeff of Boy 14.9 % (11.5-14.5) H 02/27/19 01:43 Plt Count 176 K/uL (130-400) 02/27/19 01:43 MPV 10.2 fL (7.4-10.4) 02/27/19 01:43 Immature Gran % (Auto) 0.3 % 02/27/19 01:43 Neut % (Auto) 63.2 % 02/27/19 01:43 Lymph % (Auto) 23.3 % 02/27/19 01:43 [place] % (Auto) 9.0 % 02/27/19 01:43 Eos % (Auto) 3.6 % 02/27/19 01:43 Baso % (Auto) 0.6 % 02/27/19 01:43 Immature Gran # (Auto) 0.02 K/uL (0.00-0.02) 02/27/19 01:43 Neut # (Auto) 4.07 K/uL (1.4-6.5) 02/27/19 01:43 Lymph # (Auto) 1.50 K/uL (1.2-3.4) 02/27/19 01:43 [place] # (Auto) 0.58 K/uL (0.11-0.59) 02/27/19 01:43 Eos # (Auto) 0.23 K/uL (0-0.5) 02/27/19 01:43 Baso # (Auto) 0.04 K/uL (0-0.2) 02/27/19 01:43 PT 26.9 Seconds (9.0-12.0) H 02/27/19 01:43 INR 2.8 (0.9-1.1) H 02/27/19 01:43 APTT 31.6 Seconds (21.0-31.0) H 02/27/19 01:43 PTT Ratio 1.2 02/27/19 01:43 Sodium 140 mmol/L (136-145) 02/27/19 01:43 Potassium 3.9 mmol/L (3.5-5.1) 02/27/19 01:43 Chloride 105 mmol/L (98-107) 02/27/19 01:43 Carbon Dioxide 27 mmol/L (21-32) 02/27/19 01:43 Anion Gap 8.0 (3-11) 02/27/19 01:43 BUN 26 mg/dl (7-18) H 02/27/19 01:43 Creatinine 1.10 mg/dl (0.6-1.2) 02/27/19 01:43 Est Cr Clr Drug Dosing 39.5 ml/min 02/27/19 01:43 Est GFR ( Amer) 52.3 02/27/19 01:43 Est GFR (Non-Af Amer) 45.1 02/27/19 01:43 BUN/Creatinine Ratio 24.0 (10-20) H 02/27/19 01:43 Glucose 120 mg/dl (70-99) H 02/27/19 01:43 Calcium 9.4 mg/dl (8.5-10.1) 02/27/19 01:43 Total Bilirubin 0.5 mg/dl (0.2-1) 02/27/19 01:43 AST 33 U/L (15-37) 02/27/19 01:43 ALT 29 U/L (12-78) 02/27/19 01:43 Alkaline Phosphatase 133 U/L (45-117) H 02/27/19 01:43 Troponin I 0.055 ng/ml (0-0.045) H* 02/27/19 01:43 Total Protein 7.2 gm/dl (6.4-8.2) 02/27/19 01:43 Albumin 3.4 gm/dl (3.4-5.0) 02/27/19 01:43 Globulin 3.8 gm/dl (2.5-4.0) 02/27/19 01:43 Albumin/Globulin Ratio 0.9 (0.9-2) 02/27/19 01:43 Lipase 85 U/L (73-393) 02/27/19 01:43 Code Status & VTE Plan VTE Prophylaxis Plan VTE Prophylaxis will be ordered: Yes PG Care Time/CCT Total # of Minutes Spent Total Time Spent: 70 Total Time Spent with Patient: Total time spent is greater than 50% in coordination of care (as documented) at patient's floor/unit and/or counseling patient:
[2019-02-27] MEDS ORDERED: NITROGLYCERIN SL 0.4 MG/TAB TAB SL PRN (05:09)
[2019-02-27] MEDS ORDERED: TRAMADOL HCL 50 MG TABLET PO PRN (05:09)
[2019-02-27] MEDS ORDERED: MoRPHine SULFATE 2 MG/ML CARP IV PRN (05:09)
[2019-02-27] MEDS ORDERED: ONDANSETRON INJ 2 MG/ML 2 ML VIAL IV PRN (05:09)
--- NOTE | 2019-02-27 06:55 | XRay Report ---
XR chest 1V portable CLINICAL HISTORY: Atypical chest pain COMPARISON STUDY: 07/30/2018 FINDINGS: The heart is enlarged. There is a right subclavian dual-chamber central venous pacemaker. T here is diffuse elevation of interstitium consistent with interstitial pulmonary edema. There are no large pleural effusions. There is no lobar consolidation. There are postsurgical changes of a reverse total right shoulder arthroplasty.[ IMPRESSION: Pulmonary edema pattern. Clinical and radiographic follow-up is recommended Electronically signed by: Vinicius Cerda M.D. 02/27/2019 6:54 AM
[2019-02-27] MEDS: METOPROLOL SUCC 25MG EXT REL TAB PO SCH (08:15)
[2019-02-27] MEDS: AMLODIPINE BESYLATE 5 MG TAB PO SCH (08:15)
[2019-02-27] MEDS: ISOSORBIDE MONO EXTENDED REL 60 MG TABCR PO SCH (08:15)
[2019-02-27] MEDS: ROSUVASTATIN CALCIUM 20 MG TAB PO SCH (08:16)
[2019-02-27] MEDS: SODIUM CHLORIDE 1 GM TABLET PO SCH (08:16)
[2019-02-27] MEDS: CLOPIDOGREL BISULFATE 75 MG TAB PO SCH (08:16)
[2019-02-27] MEDS: OXcarbazepine 150 MG TABLET PO SCH ×4 (08:16→20:30)
[2019-02-27] MEDS: PANTOprazole 40 MG TAB PO SCH (08:16)
[2019-02-27] MEDS: RANOLAZINE 500 MG ER TAB PO SCH ×2 (08:16→20:29)
[2019-02-27] MEDS: GABAPENTIN 300 MG CAP PO SCH ×4 (08:16→20:27)
--- NOTE | 2019-02-27 08:32 | Emergency Department Note ---
Entered by Elvis Walker acting as a scribe for History of Present Illness General Chief complaint: Chest Pain Stated complaint: SOB AND CHEST PAIND - VALVE PUT IN A WK AGO WED Time Seen by Provider: 02/27/19 01:53 Source: patient Mode of arrival: ambulatory Limitations: no limitations History of Present Illness Onset (ago): hour(s) (several hours ago) Location: chest Pain Consistency: + now resolved Maximum Pain Intensity: 6 Relieved By: + other (oxygen) Associated symptoms: + shortness of breath Treatments prior to arrival: other (nitroglycerin, warfarin, lasix) The patient is a 89 year old female who presents to the Emergency Room with complaints of constant chest pain starting several hours ago. The patient states she started to have chest pain and SOB during the afternoon. She states she took a Plavix in the morning. She notes she took 2 Nitroglycerin at 1900. She states she no longer has chest pain with the oxygen on. She denies using oxygen at home. She states she takes 6 mg of Warfarin daily and takes Lasix daily. She notes her leg swelling is worse when she eats salt or takes amlodipine. The patient states she does not check her blood pressure at home. She denies taking any aspirin tonight. She states she has had a heart attack before. Home Medications Home Medications Medication Instructions Recorded Confirmed Type clopidogrel [Plavix] 75 mg PO DAILY 01/16/18 02/27/19 History epinephrine [EpiPen 2-Percy] 0.3 mg IM DIRECTED PRN 01/16/18 02/27/19 History metoprolol succinate [Toprol XL] 25 mg PO DAILY 01/16/18 02/27/19 History multivitamin with minerals 1 tab PO QPM 01/16/18 02/27/19 History nitroglycerin [Nitrostat] 0.4 mg SUBLINGUAL DIRECTED PRN 01/16/18 02/27/19 History oxcarbazepine [Trileptal] 300 mg PO QID 01/16/18 02/27/19 History pantoprazole [Protonix] 40 mg PO DAILY 01/16/18 02/27/19 History ranolazine [Ranexa] 500 mg PO Q12H 01/16/18 02/27/19 History sodium chloride 1 g PO DAILY 01/16/18 02/27/19 History acetaminophen [Tylenol] 325 - 650 mg PO Q4 PRN 07/28/18 02/27/19 History furosemide [Lasix] 20 mg PO DAILY 07/28/18 02/27/19 History tramadol 50 - 100 mg PO BID PRN 07/28/18 02/27/19 History magnesium oxide 400 mg PO HS #30 tab 07/31/18 02/27/19 Rx rosuvastatin [Crestor] 20 mg PO QAM #30 tab 07/31/18 02/27/19 Rx amlodipine 5 mg tablet 5 mg PO DAILY tab 11/27/18 02/27/19 History ergocalciferol (vitamin D2) 50,000 50,000 unit PO MO #12 cap 12/14/18 02/27/19 Rx unit capsule gabapentin 300 mg capsule 300 mg PO QID 30 Days #120 cap 01/08/19 02/27/19 Rx warfarin 6 mg tablet See Rx Instructions PO DAILY tab 01/11/19 02/27/19 History isosorbide mononitrate 30 mg PO QPM #30 tab 02/28/19 Rx isosorbide mononitrate 60 mg PO QAM #30 tab 02/28/19 Rx Allergies Allergy/AdvReac Type Severity Reaction Status Date / Time sodium lauryl sulfate Allergy Intermediate HIVES & Verified 12/14/18 13:21 WELTS bee venom protein (honey bee) Allergy Unknown ANAPHYLAXIS Verified 12/14/18 13:21 Past Med/Surg History Medical History Trigeminal neuralgia (Chronic) Chronic kidney disease, stage II (mild) (Chronic) Hyponatremia (Chronic) Vitamin D deficiency (Chronic) HTN (hypertension) (Chronic) Aortic aneurysm (Resolved) Pulmonary embolism (Resolved) Breast cancer FH: total knee replacement H/O: hysterectomy Ileostomy in place Surgical History H/O total colectomy S/P breast lumpectomy H/O cardiac catheterization (Resolved) S/P shoulder surgery Family History Mother Cancer Acute myocardial infarction Uterine cancer Hypertension Father Cancer Prostate cancer Social History Preferred Language: Kazakh Communication Ability: Effective Ocean Biologist Required: No Beliefs That Will Affect Care: None Current Living Situation: Family Current Living Situation Comment: Grand son lives with gagee Feels Safe at Home: Yes Smoking Status: Never smoker Second Hand Exposure: No ; Hx Alcohol Use: No Hx Substance Use: No Review of Systems See HPI for pertinent positives & negatives. and A total of 10 systems reviewed and were otherwise negative Physical Exam Vital Signs Vital Signs - 24 hr 02/27/19 01:38 02/27/19 01:42 02/27/19 01:49 Temperature 36.3 C L Temperature Source Oral Sepsis Recent Fever Within 48 Hours No Sepsis Action Taken by Nursing No Action Required Oxygen Flow Rate - Titration 4 Pulse Oximetry Post Tiitration 95 Pulse Rate 84 Pulse Rate [Finger] 63 Pulse Rhythm [Finger] Pulse Strength [Finger] Respiratory Rate 18 Respiratory Effort / Characteristics Non-Labored Spontaneous Respiratory Depth Normal Respiratory Pattern Blood Pressure 150/75 H Blood Pressure [Left Arm] 154/83 H Blood Pressure Mean 100 Blood Pressure Mean [Left Arm] 106 Blood Pressure Position Lying Blood Pressure Position [Left Arm] Lying Pulse Oximetry 84 L 84 L 98 Oxygen Delivery Method Room Air Room Air Nasal Cannula Oxygen Flow Rate 4 02/27/19 02:32 02/27/19 03:55 Temperature Temperature Source Sepsis Recent Fever Within 48 Hours Sepsis Action Taken by Nursing Oxygen Flow Rate - Titration Pulse Oximetry Post Tiitration Pulse Rate Pulse Rate [Finger] 71 79 Pulse Rhythm [Finger] Regular Regular Pulse Strength [Finger] Normal Normal Respiratory Rate 23 20 Respiratory Effort / Characteristics Non-Labored Spontaneous Non-Labored Spontaneous Respiratory Depth Normal Normal Respiratory Pattern Regular Regular Blood Pressure Blood Pressure [Left Arm] 152/78 H Blood Pressure Mean Blood Pressure Mean [Left Arm] 102 Blood Pressure Position Blood Pressure Position [Left Arm] Pulse Oximetry 97 99 Oxygen Delivery Method Room Air Nasal Cannula Oxygen Flow Rate 3 Vital signs reviewed. General: Elderly and chronically ill-appearing 89 year-old female, in no significant distress. Patient is on nasal cannula. HEENT: No scleral icterus, PERRLA, neck supple. Atraumatic. Cardiovascular: Regular rate and rhythm. No extra sounds. Systolic ejection murmur Pulmonary: Clear to auscultation bilaterally, normal work of breathing. Crackles at bilateral bases. Abdomen: Soft, nontender, nondistended, positive bowel sounds. Musculoskeletal: Atraumatic. Minimal peripheral edema. Neurologic: Patient awake alert and oriented x 3, full strength in all 4 extrem ities. Cranial nerves 2 through 12 grossly intact. Skin: Warm, dry, no rash Course 0201: The patient was evaluated in room B11B, and a complete history and physical examination were performed. 0331: I discussed the patient's case with Dr. Leggett - [facility] Hospitalist. He will evaluate the patient for further management. 0332: I reevaluated the patient. The patient is currently sleeping and is on 2L O2. Administered Medications Discontinued Medications Acetaminophen (Tylenol) 650 mg PO NOW STA Stop: 02/27/19 04:18 Last Admin: 02/27/19 04:20 Dose: 650 mg Documented by: [id number] Acetaminophen (Tylenol) 650 mg PO Q4H PRN PRN Reason: mild pain or fever Stop: 03/29/19 05:08 Last Admin: 02/28/19 06:31 Dose: 650 mg Documented by: [id number] Admin: 02/27/19 20:24 Dose: 650 mg Documented by: [id number] Amlodipine Besylate (Norvasc) 5 mg PO DAILY PRAMOD Stop: 03/29/19 08:59 Last Admin: 02/28/19 08:46 Dose: 5 mg Documented by: [id number] Admin: 02/27/19 08:15 Dose: 5 mg Documented by: [id number] Clopidogrel Bisulfate (Plavix) 75 mg PO DAILY PRAMOD Stop: 03/29/19 08:59 Last Admin: 02/28/19 08:45 Dose: 75 mg Documented by: [id number] Admin: 02/27/19 08:16 Dose: 75 mg Documented by: [id number] Furosemide (Lasix) 40 mg IV NOW STA Stop: 02/27/19 02:35 Last Admin: 02/27/19 02:48 Dose: 40 mg Documented by: [id number] Furosemide (Lasix) 20 mg PO DAILY PRAMOD Stop: 03/30/19 08:59 Last Admin: 02/28/19 08:46 Dose: 20 mg Documented by: [id number] Furosemide (Lasix) 40 mg IV ONE ONE Stop: 02/28/19 11:41 Last Admin: 02/28/19 12:03 Dose: 40 mg Documented by: [id number] Gabapentin (Neurontin) 300 mg PO QID PRAMOD Stop: 03/29/19 08:59 Last Admin: 02/28/19 12:03 Dose: 300 mg Documented by: [id number] Admin: 02/28/19 08:45 Dose: 300 mg Documented by: [id number] Admin: 02/27/19 20:27 Dose: 300 mg Documented by: [id number] Admin: 02/27/19 16:48 Dose: 300 mg Documented by: [id number] Admin: 02/27/19 12:39 Dose: 300 mg Documented by: [id number] Admin: 02/27/19 08:16 Dose: 300 mg Documented by: [id number] Furosemide 40 mg/ Syringe 4 mls @ 4 mls/min IV QAM PRAMOD Stop: 03/29/19 08:59 Last Admin: 02/27/19 08:15 Dose: 4 mls/min Documented by: [id number] Isosorbide Mononitrate (Imdur Extended Rel) 60 mg PO DAILY PRAMOD Stop: 03/29/19 08:59 Last Admin: 02/28/19 08:45 Dose: 60 mg Documented by: [id number] Admin: 02/27/19 08:15 Dose: 60 mg Documented by: [id number] Isosorbide Mononitrate (Imdur Extended Rel) 30 mg PO HS PRAMOD Stop: 03/29/19 20:59 Last Admin: 02/27/19 20:28 Dose: 30 mg Documented by: [id number] Magnesium Oxide (Mag-Ox) 400 mg PO HS PRAMOD Stop: 03/29/19 20:59 Last Admin: 02/27/19 20:28 Dose: 400 mg Documented by: [id number] Metoprolol Succinate (Toprol Xl) 25 mg PO DAILY PRAMOD Stop: 03/29/19 08:59 Last Admin: 02/28/19 08:45 Dose: 25 mg Documented by: [id number] Admin: 02/27/19 08:15 Dose: 25 mg Documented by: [id number] Multivitamins/Minerals (Multivitamin W/ Minerals Tab) 1 tab PO QPM PRAMOD Stop: 03/29/19 20:59 Last Admin: 02/27/19 20:30 Dose: 1 tab Documented by: [id number] Oxcarbazepine (Trileptal) 300 mg PO QID PRAMOD Stop: 03/29/19 08:59 Last Admin: 02/28/19 12:03 Dose: 300 mg Documented by: [id number] Admin: 02/28/19 08:44 Dose: 300 mg Documented by: [id number] Admin: 02/27/19 20:30 Dose: 300 mg Documented by: [id number] Admin: 02/27/19 16:48 Dose: 300 mg Documented by: [id number] Admin: 02/27/19 12:39 Dose: 300 mg Documented by: [id number] Admin: 02/27/19 08:16 Dose: 300 mg Documented by: [id number] Pantoprazole Sodium (Protonix) 40 mg PO DAILY PRAMOD Stop: 03/29/19 08:59 Last Admin: 02/28/19 08:45 Dose: 40 mg Documented by: [id number] Admin: 02/27/19 08:16 Dose: 40 mg Documented by: [id number] Potassium Chloride (Klor-Con M10) 40 meq PO ONE ONE Stop: 02/27/19 16:41 Last Admin: 02/27/19 17:36 Dose: 40 meq Documented by: [id number] Ranolazine (Ranexa) 500 mg PO Q12H [facility] Stop: 03/29/19 08:59 Last Admin: 02/28/19 08:46 Dose: 500 mg Documented by: [id number] Admin: 02/27/19 20:29 Dose: 500 mg Documented by: [id number] Admin: 02/27/19 08:16 Dose: 500 mg Documented by: [id number] Rosuvastatin Calcium (Crestor) 20 mg PO QAM PRAMOD Stop: 03/29/19 08:59 Last Admin: 02/28/19 08:44 Dose: 20 mg Documented by: [id number] Admin: 02/27/19 08:16 Dose: 20 mg Documented by: [id number] Sodium Chloride (Sodium Chloride) 1 gm PO DAILY PRAMOD Stop: 03/29/19 08:59 Last Admin: 02/28/19 08:44 Dose: 1 gm Documented by: [id number] Admin: 02/27/19 08:16 Dose: 1 gm Documented by: [id number] Warfarin Sodium (Coumadin) 6 mg PO DAILY@1600 [facility] Stop: 03/29/19 15:59 Last Admin: 02/27/19 16:47 Dose: 6 mg Documented by: [id number] Medical Decision Making Differential Diagnosis Differential diagnoses includes acute coronary syndrome, pulmonary embolus, aortic dissection, musculoskeletal pain, pneumonia, pleural effusion, pneumothorax, gastritis, peptic ulcer disease. Medical Records Attestation: I reviewed the patient's medical records. Home Medications Current Medication List: was personally reviewed by me Laboratory Data Attestation: I reviewed the patient's lab results. Result diagrams: 02/28/19 06:17 02/28/19 06:17 Lab Results 02/27/19 02/27/19 02/27/19 Range/Units 01:43 01:43 01:43 WBC 6.44 (4.8-10.8) K/uL RBC 3.53 L (4.2-5.4) M/uL Hgb 10.8 L (12.0-16.0) g/dL Hct 33.9 L (37-47) % MCV 96.0 (80-100) fL MCH 30.6 (25-34) pg MCHC 31.9 L (32-36) g/dL RDW Std Deviation 51.1 H (36.4-46.3) fL RDW Coeff of Boy 14.9 H (11.5-14.5) % Plt Count 176 (130-400) K/uL MPV 10.2 (7.4-10.4) fL Immature Gran % (Auto) 0.3 % Neut % (Auto) 63.2 % Lymph % (Auto) 23.3 % [place] % (Auto) 9.0 % Eos % (Auto) 3.6 % Baso % (Auto) 0.6 % Immature Gran # (Auto) 0.02 (0.00-0.02) K/uL Neut # (Auto) 4.07 (1.4-6.5) K/uL Lymph # (Auto) 1.50 (1.2-3.4) K/uL [place] # (Auto) 0.58 (0.11-0.59) K/uL Eos # (Auto) 0.23 (0-0.5) K/uL Baso # (Auto) 0.04 (0-0.2) K/uL PT 26.9 H (9.0-12.0) Seconds INR 2.8 H (0.9-1.1) APTT 31.6 H (21.0-31.0) Seconds PTT Ratio 1.2 Sodium 140 (136-145) mmol/L Potassium 3.9 (3.5-5.1) mmol/L Chloride 105 (98-107) mmol/L Carbon Dioxide 27 (21-32) mmol/L Anion Gap 8.0 (3-11) BUN 26 H (7-18) mg/dl Creatinine 1.10 (0.6-1.2) mg/dl Est Cr Clr Drug Dosing 39.5 ml/min Est GFR ( Amer) 52.3 Est GFR (Non-Af Amer) 45.1 BUN/Creatinine Ratio 24.0 H (10-20) Glucose 120 H (70-99) mg/dl Calcium 9.4 (8.5-10.1) mg/dl Total Bilirubin 0.5 (0.2-1) mg/dl AST 33 (15-37) U/L ALT 29 (12-78) U/L Alkaline Phosphatase 133 H (45-117) U/L Troponin I 0.055 H* (0-0.045) ng/ml Total Protein 7.2 (6.4-8.2) gm/dl Albumin 3.4 (3.4-5.0) gm/dl Globulin 3.8 (2.5-4.0) gm/dl Albumin/Globulin Ratio 0.9 (0.9-2) Lipase 85 (73-393) U/L Imaging Data My Impression: Chest X-Ray 1 view: Congestive heart failure. 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 IV access was obtained and lab work was drawn. PT was placed on the ice cream server. IV access was obtained and lab work was drawn. PT was on n/c O2. IV lasix 40 mg was administered. CXR confirms CHF. Trop is mildly elevated and EKG reveals LAFB and RBBB. No acute injury pattern. Trop seems to be chronically elevated in recent years. Pt was reevaluated and d/w Dr Leggett of the hospitalist service. She will be evaluated for further management. Impression & Plan CHF (congestive heart failure) Discharge Plan Visit Data *Final* Discharge Date/Time: 02/27/19 04:39 Chief Complaint: Chest Pain Stated Complaint: SOB AND CHEST PAIND - VALVE PUT IN A WK AGO WED ED Provider: Isabella Land Discharge Problem: CHF (congestive heart failure) Patient Disposition: Admitted As Inpatient Discharge Instructions Interventions: ED Discharge Assessment Last Done: 02/27/19 04:39 Discharge Problem: CHF (congestive heart failure) Qualifiers: Heart failure type: unspecified Heart failure chronicity: unspecified Qualified Code(s): I50.9 - Heart failure, unspecified The scribe's documentation has been prepared under my direction and personally reviewed by me in its entirety. I confirm that the note above accurately reflects all work, treatment, procedures, and medical decision making performed by me.
[2019-02-27] MEDS ORDERED: FUROSEMIDE 40 MG in SYRINGE 0 ML IV SCH (09:00)
[2019-02-27 10:28] LABS: BUN Creatinine Ratio 21.7 (10-20); Calcium 9.1 mg/dl (8.5-10.1); Creatinine Clr Calc Pharmacy 37.4 ml/min; Est GFR (African American) 52.9; Est GFR (Non-African American) 45.6; Magnesium 1.8 mg/dl (1.8-2.4); Potassium 3.1 mmol/L (3.5-5.1)
[2019-02-27 10:33] LABS: Troponin I 0.061 ng/ml (0-0.045)
--- NOTE | 2019-02-27 11:26 | Consultation Report ---
DATE OF CONSULTATION: 02/27/2019 REQUESTING PHYSICIAN: Jose Leggett DO. INJECTION MOLDING SUPERVISOR: Rafael Clark DO, [facility]. REASON FOR CONSULTATION: Angina and heart failure. Dear Dr. Leggett: It was pleasure to see Paige today in consultation with regards to her chest discomfort and shortness of breath. As you know, she has a very complex past cardiac history. She recently on 02/17/2019 underwent a transaxillary TAVR for severe aortic stenosis. She also required an 8 mm x 59 mm covered stent in the axillary artery due to extravasation at the access site. She did well with the procedure. Post-procedure echocardiogram revealed normal LV function with moderate left ventricular hypertrophy and normal gradients across the TAVR prosthesis without evidence of significant paravalvular leak. She has chronic angina. It sounds like it has become more progressive since she left the hospital. She has also had some shortness of breath yesterday. She describes her angina as 5/10. As you know, Paige is quite stoic, so for her to have this degree of discomfort and come to the hospital suggests her discomfort was rather significant. She did receive diuretics in the ER and is feeling better. She has some slight angina this morning. She describes it as a 1-2/10. Looking at Paige, she actually looks dramatically better than the last time I saw her before her TAVR, her color looks better. She notes her shortness of breath has not significantly improved since the procedure. She denies any lightheadedness or dizziness, presyncope or syncope. She has chronic pain related to her trigeminal neuralgia. She denies any lower extremity edema or increased abdominal distension. She denies any bleeding. She does have significant ecchymosis of her left arm at the transaxillary site. She is able to sit up in bed that did not worsen her angina. She has not had any orthopnea at home. Her chest x-ray is consistent with heart failure as well as her examination. The rest of complete review of systems is otherwise negative. PAST MEDICAL HISTORY: 1. Severe aortic stenosis, status post 23 mm Mahajan Jose valve for severe aortic stenosis. 02/17/2019. 2. Axillary artery stenting due to extravasation at the axillary artery access site for her TAVR. 3. Severe coronary artery disease, essentially living off a large dominant RCA providing collaterals to the LAD territory. 4. History of unstable angina, status post angioplasty and stenting of a high grade mid RCA lesion in 06/2018. 5. Dual chamber pacemaker. 6. 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 7. 7-cm AAA awaiting a snorkel TVAR procedure by Dr. Lang at [facility]. SOCIAL HISTORY: She is . She denies any tobacco. She enjoys gardening and being outside and [place] being [place]. ALLERGIES: No known drug allergies. FAMILY HISTORY: Mom at 86 of complications related to heart attack, cancer and pancreatitis. Dad from prostate cancer. MEDICATIONS: Reviewed in electronic medical record. ALLERGIES: SODIUM, LAURYL SULFATE AND BEE VENOM. PHYSICAL EXAMINATION: GENERAL: She is awake, alert and oriented x3. She actually looks better than when I last saw her. VITAL SIGNS: Her heart rate is 62, blood pressure 132/77, respirations 18, her sats 98%. HEENT: 2+ carotid upstrokes, no evidence of carotid bruits. Jugular venous pressure appears normal. Sclerae is anicteric. Hearing is normal. LUNGS: She has crackles in the bases approximately a quarter of the way up. No rhonchi or wheezing. HEART: Regular rate and rhythm. Soft systolic ejection murmur at the right sternal border. There were no appreciable diastolic murmurs across her TAVR. ABDOMEN: Soft, nontender, nondistended. Positive bowel sounds. EXTREMITIES: No clubbing, cyanosis or edema. PSYCHIATRIC: She is tearful given everything she has been through. EKG, AV paced. LABORATORY STUDIES: Sodium 140, potassium 3.9, BUN 26, creatinine 1.1, troponin 0.055. Her hemoglobin is 10.8, down from 12.9, 12/11/2018. Her platelet count is stable at 176. IMPRESSION: 1. Acute on chronic diastolic heart failure. 2. Chronic stable angina. 3. 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 4. Covered stent placed in her axillary artery due to extravasation of contrast post-TAVR placement. 5. 7-cm abdominal aortic aneurysm. 6. Three-vessel coronary artery disease, essentially living off of her right coronary artery. I reassured Paige, she looks much better than when I last saw her. She is receiving IV diuretics. Her CHF is likely reabsorption of IVF from her TAVR. She does have some mild angina this morning. I would increase her Imdur to 60 mg in the morning and 30 mg at night and this can be up titrated as her blood pressure allows. In the past, she has not tolerated higher doses of Ranexa. The other option would be to try to increase her amlodipine. Her hemoglobin, although lower than it was 3 months ago is stable at this point. I do not appreciate a diastolic murmur to suggest that she is having a significant perivalvular or valvular leak across the prosthesis. Her echo is reassuring with normal gradients and no evidence of valvular or paravalvular leak. We will continue adjusting her medical therapy. Thank you for allowing me to participate in her care. CALISTA
[2019-02-27] MEDS ORDERED: MICONAZOLE NITRATE POWDER 43 GM EXT PRN (13:38)
[2019-02-27] MEDS ORDERED: WARFARIN SOD 6 MG TAB PO SCH (16:00)
[2019-02-27] MEDS ORDERED: POTASSIUM CHLORIDE 10 MEQ TABCR PO ONE (16:40)
--- NOTE | 2019-02-27 16:43 | Hospitalist Progress Note ---
Date of Service February 27, 2019 Assessment & Plan (1) Acute diastolic CHF (congestive heart failure): 89-year-old female was admitted on February 27, 2019 for non-radiating chest pain and shortness of breath. Acute diastolic heart failure, CAD, chronic angina: Notably s/p transaxillary TAVR for severe aortic stenosis on 30Oct as well as an axillary stent during the procedure. Admit TnI 0.055. EKG is sinus rhythm 62, 1st degree AV block, RBBB, LAFB. pCXR suggestive of pulmonary edema. 09Nov TTE noted normal hemodynamics across bioprosthetic aortic valve, EF 65-70%, with multiple other findings (see full report). Much improvement with fluid status via IV Lasix. - Given Lasix on admit. Kept on Plavix, isosorbide, metoprolol, metoprolol. Restarted home Lasix 20 mg PO daily. Goal to wean off of supplemental oxygen. - Cardiology consulted (see related notes). Increased her Imdur. Could also consider increasing her amlodipine. Hypokalemia: As low as K 3.1, likely related to Lasix dosing. Replacing, monitoring. Anemia: Admit hemoglobin 10.8. No present evidence of bleeding. Monitoring. Ongoing medical issues: - Hypertension, hyperlipidemia: Continue amlodipine, Imdur, and metoprolol. Also on Ranexa and rosuvastatin. Has dual chamber pacemaker. - History of pulmonary embolism: On Coumadin. Admit INR 2.8. - Aneurysm of the infrarenal abdominal aorta: Reportedly 7 mm AAA with repair on hold prior to TAVR. - Ulcerative colitis, prior total colectomy and ileostomy: Presently asymptomatic. - CKD stage II: Admit Cr 1.1. - Trigeminal neuralgia: Continue home gabapentin, Trileptal. - ? GERD: On home protonix. Code status: Full code. Diet: Heart healthy. DVT prophy: Coumadin. PT/OT: Ordered. Disbo: Admitted to PCU telemetry. (2) Coronary artery disease: (3) Angina pectoris: (4) Hypokalemia: (5) Anemia: (6) Hypertension: (7) Hyperlipidemia: (8) PE (pulmonary embolism): (9) Aneurysm of infrarenal abdominal aorta: (10) Ulcerative colitis: (11) Chronic kidney disease, stage II (mild): (12) Trigeminal neuralgia: Supervising Physician Co-Signing Physician Notes Patient seen and examined with PYG-3 Dr. Luis. Agree with history, exam findings, assessment and plan of care as outlined. In brief, Ms. Ely is an 89 year old female with history of CAD, chronic angina, CKD, trigeminal neuralgia, anemia, HTN, prior PE (anticoagulated with coumadin) admitted with dyspnea, found to be fluid overloaded with pulmonary edema on chest xray. She has received IV lasix 40mg x 2 since admission and has diurese well. She is still a bit short of breath with walking and long periods of talking. She did desaturate to the high 80s when walking in the hallway earlier today. She is currently on 2L NC. No rales or crackles on exam this afternoon. Echo today showing preserved ejection fracture, new prosthetic valve in correct position. Changed imdur to 60 mg qAM and 30mg qHS. Will continue to diuresis and attempt to wean O2 as she is not on O2 chronically. Appreciate cardiology recommendations. Subjective Met with patient earlier this morning. At that time the patient said that he still had a little bit of chest discomfort this morning but that the use of nasal cannula oxygen completely resolved any level of shortness of breath. She also thinks that the Lasix helped with her symptoms significantly. She denied any other acute concerns. On my rounding this afternoon, patient said that she was able to go for a walk without any supplemental oxygen. She denied any chest pain or shortness of breath with this, however did say she would get a bit dizzy. On further clarification, she says usually she does not get much peripheral edema and that her home Lasix dosing works well for her. She says she does run into some problems if she accidentally has increased dietary salt intake. Review of Systems Review of Systems: Per HPI as above. Physical Exam Physical Exam: General Appearance: Awake, alert & oriented, comfortable in general, NAD. Very pleasantly conversational. CV: +S1S2 RRR, no murmur. Right upper chest pacemaker in place. Pulm: Clear to auscultation throughout. Nasal cannula oxygen in place. Abdomen: +BS, soft, non-tender, non-distended. Ostomy in place. Extremities: No pedal edema or calf tenderness. Moving all extremities naturally and easily. Neuro: No gross neuro deficits. Results & Data Vital Signs (Past 12 Hours) Vital Signs Temp Pulse Resp BP Pulse Ox 02/27/19 15:04 36.7 C 63 18 122/74 94 02/27/19 11:25 36.5 C 62 18 133/75 95 02/27/19 09:14 62 18 132/77 98 02/27/19 07:01 36.7 C 68 18 121/76 97 02/27/19 05:31 36.3 C L 63 161/79 H Laboratory Results 02/27/19 02/27/19 02/27/19 Range/Units 09:45 01:43 01:43 WBC (4.8-10.8) K/uL RBC (4.2-5.4) M/uL Hgb (12.0-16.0) g/dL Hct (37-47) % MCV (80-100) fL MCH (25-34) pg MCHC (32-36) g/dL RDW Std Deviation (36.4-46.3) fL RDW Coeff of Boy (11.5-14.5) % Plt Count (130-400) K/uL MPV (7.4-10.4) fL Immature Gran % (Auto) % Neut % (Auto) % Lymph % (Auto) % Forrest % (Auto) % Eos % (Auto) % Baso % (Auto) % Immature Gran # (Auto) (0.00-0.02) K/uL Neut # (Auto) (1.4-6.5) K/uL Lymph # (Auto) (1.2-3.4) K/uL Forrest # (Auto) (0.11-0.59) K/uL Eos # (Auto) (0-0.5) K/uL Baso # (Auto) (0-0.2) K/uL PT 26.9 H (9.0-12.0) Seconds INR 2.8 H (0.9-1.1) APTT 31.6 H (21.0-31.0) Seconds PTT Ratio 1.2 Sodium 141 140 (136-145) mmol/L Potassium 3.1 L D 3.9 (3.5-5.1) mmol/L Chloride 106 105 (98-107) mmol/L Carbon Dioxide 29 27 (21-32) mmol/L Anion Gap 6.0 8.0 (3-11) BUN 24 H 26 H (7-18) mg/dl Creatinine 1.09 1.10 (0.6-1.2) mg/dl Est Cr Clr Drug Dosing 37.4 39.5 ml/min Est GFR ( Amer) 52.9 52.3 Est GFR (Non-Af Amer) 45.6 45.1 BUN/Creatinine Ratio 21.7 H 24.0 H (10-20) Glucose 113 H 120 H (70-99) mg/dl Calcium 9.1 9.4 (8.5-10.1) mg/dl Magnesium 1.8 (1.8-2.4) mg/dl Total Bilirubin 0.5 (0.2-1) mg/dl AST 33 (15-37) U/L ALT 29 (12-78) U/L Alkaline Phosphatase 133 H (45-117) U/L Troponin I 0.061 H* 0.055 H* (0-0.045) ng/ml Total Protein 7.2 (6.4-8.2) gm/dl Albumin 3.4 (3.4-5.0) gm/dl Globulin 3.8 (2.5-4.0) gm/dl Albumin/Globulin Ratio 0.9 (0.9-2) Lipase 85 (73-393) U/L 02/27/19 Range/Units 01:43 WBC 6.44 (4.8-10.8) K/uL RBC 3.53 L (4.2-5.4) M/uL Hgb 10.8 L (12.0-16.0) g/dL Hct 33.9 L (37-47) % MCV 96.0 (80-100) fL MCH 30.6 (25-34) pg MCHC 31.9 L (32-36) g/dL RDW Std Deviation 51.1 H (36.4-46.3) fL RDW Coeff of Boy 14.9 H (11.5-14.5) % Plt Count 176 (130-400) K/uL MPV 10.2 (7.4-10.4) fL Immature Gran % (Auto) 0.3 % Neut % (Auto) 63.2 % Lymph % (Auto) 23.3 % Forrest % (Auto) 9.0 % Eos % (Auto) 3.6 % Baso % (Auto) 0.6 % Immature Gran # (Auto) 0.02 (0.00-0.02) K/uL Neut # (Auto) 4.07 (1.4-6.5) K/uL Lymph # (Auto) 1.50 (1.2-3.4) K/uL Forrest # (Auto) 0.58 (0.11-0.59) K/uL Eos # (Auto) 0.23 (0-0.5) K/uL Baso # (Auto) 0.04 (0-0.2) K/uL PT (9.0-12.0) Seconds INR (0.9-1.1) APTT (21.0-31.0) Seconds PTT Ratio Sodium (136-145) mmol/L Potassium (3.5-5.1) mmol/L Chloride (98-107) mmol/L Carbon Dioxide (21-32) mmol/L Anion Gap (3-11) BUN (7-18) mg/dl Creatinine (0.6-1.2) mg/dl Est Cr Clr Drug Dosing ml/min Est GFR ( Amer) Est GFR (Non-Af Amer) BUN/Creatinine Ratio (10-20) Glucose (70-99) mg/dl Calcium (8.5-10.1) mg/dl Magnesium (1.8-2.4) mg/dl Total Bilirubin (0.2-1) mg/dl AST (15-37) U/L ALT (12-78) U/L Alkaline Phosphatase (45-117) U/L Troponin I (0-0.045) ng/ml Total Protein (6.4-8.2) gm/dl Albumin (3.4-5.0) gm/dl Globulin (2.5-4.0) gm/dl Albumin/Globulin Ratio (0.9-2) Lipase (73-393) U/L Medications Administered Current Inpatient Medications Acetaminophen (Tylenol) 650 mg PO Q4H PRN PRN Reason: mild pain or fever Stop: 03/29/19 05:08 Amlodipine Besylate (Norvasc) 5 mg PO DAILY [facility] Stop: 03/29/19 08:59 Last Admin: 02/27/19 08:15 Dose: 5 mg Documented by: Clopidogrel Bisulfate (Plavix) 75 mg PO DAILY [facility] Stop: 03/29/19 08:59 Last Admin: 02/27/19 08:16 Dose: 75 mg Documented by: Furosemide (Lasix) 20 mg PO DAILY [facility] Stop: 03/30/19 08:59 Gabapentin (Neurontin) 300 mg PO QID [facility] Stop: 03/29/19 08:59 Last Admin: 02/27/19 12:39 Dose: 300 mg Documented by: Isosorbide Mononitrate (Imdur Extended Rel) 60 mg PO DAILY [facility] Stop: 03/29/19 08:59 Last Admin: 02/27/19 08:15 Dose: 60 mg Documented by: Isosorbide Mononitrate (Imdur Extended Rel) 30 mg PO HS [facility] Stop: 03/29/19 20:59 Magnesium Oxide (Mag-Ox) 400 mg PO HS [facility] Stop: 03/29/19 20:59 Metoprolol Succinate (Toprol Xl) 25 mg PO DAILY [facility] Stop: 03/29/19 08:59 Last Admin: 02/27/19 08:15 Dose: 25 mg Documented by: Miconazole Nitrate (Desenex) 1 appln EXT PRN PRN PRN Reason: Affected Skin Folds Stop: 03/29/19 13:37 Morphine Sulfate (Morphine Sulfate) 2 mg IV Q3H PRN PRN Reason: Severe Pain Stop: 03/13/19 05:08 Multivitamins/Minerals (Multivitamin W/ Minerals Tab) 1 tab PO QPM [facility] Stop: 03/29/19 20:59 Nitroglycerin (Nitrostat) 0.4 mg SL PRN PRN PRN Reason: Chest Pain Stop: 03/29/19 05:08 Ondansetron HCl (Zofran) 4 mg IV Q6H PRN PRN Reason: nausea or vomiting Stop: 03/29/19 05:08 Oxcarbazepine (Trileptal) 300 mg PO QID [facility] Stop: 03/29/19 08:59 Last Admin: 02/27/19 12:39 Dose: 300 mg Documented by: Pantoprazole Sodium (Protonix) 40 mg PO DAILY [facility] Stop: 03/29/19 08:59 Last Admin: 02/27/19 08:16 Dose: 40 mg Documented by: Potassium Chloride (Klor-Con M10) 40 meq PO ONE ONE Stop: 02/27/19 16:41 Ranolazine (Ranexa) 500 mg PO Q12H [facility] Stop: 03/29/19 08:59 Last Admin: 02/27/19 08:16 Dose: 500 mg Documented by: Rosuvastatin Calcium (Crestor) 20 mg PO QAM [facility] Stop: 03/29/19 08:59 Last Admin: 02/27/19 08:16 Dose: 20 mg Documented by: Sodium Chloride (Sodium Chloride) 1 gm PO DAILY [facility] Stop: 03/29/19 08:59 Last Admin: 02/27/19 08:16 Dose: 1 gm Documented by: Tramadol HCl (Ultram) 50 mg PO Q4H PRN PRN Reason: Moderate Pain Stop: 03/29/19 05:08 Warfarin Sodium (Coumadin) 6 mg PO DAILY@1600 [facility] Stop: 03/29/19 15:59 Resident Activity Tracking Resident Involvement: Resident Care Provided Care Provided: Adult Hospital Medicine
[2019-02-27] MEDS: ACETAMINOPHEN 325 MG TAB PO PRN (20:24)
[2019-02-27] MEDS ORDERED: MAGNESIUM OXIDE 400 MG TAB PO SCH (21:00)
[2019-02-27] MEDS ORDERED: ISOSORBIDE MONO EXTENDED REL 30 MG TABCR PO SCH (21:00)
[2019-02-27] MEDS ORDERED: CEROVITE ADV FORMULA TAB PO SCH (21:00)
[2019-02-28] MEDS: ACETAMINOPHEN 325 MG TAB PO PRN (06:31)
[2019-02-28 06:46] LABS: Hemoglobin 10.4 g/dL (12.0-16.0); Mean Corpuscular Hgb Conc 32.5 g/dL (32-36); Mean Corpuscular Volume 95.5 fL (80-100); Mean Platelet Volume 9.6 fL (7.4-10.4); Platelet Count 153 K/uL (130-400); RDW Coefficient of Variation 14.8 % (11.5-14.5); RDW Standard Deviation 50.7 fL (36.4-46.3); Red Blood Count 3.35 M/uL (4.2-5.4)
[2019-02-28 06:56] LABS: INR 2.6 (0.9-1.1); Prothrombin Time 24.9 Seconds (9.0-12.0)
[2019-02-28 07:31] LABS: Calcium 9.2 mg/dl (8.5-10.1); Creatinine Clr Calc Pharmacy 40.1 ml/min; Potassium 3.8 mmol/L (3.5-5.1)
[2019-02-28] MEDS: OXcarbazepine 150 MG TABLET PO SCH ×2 (08:44→12:03)
[2019-02-28] MEDS: SODIUM CHLORIDE 1 GM TABLET PO SCH (08:44)
[2019-02-28] MEDS: ROSUVASTATIN CALCIUM 20 MG TAB PO SCH (08:44)
[2019-02-28] MEDS: METOPROLOL SUCC 25MG EXT REL TAB PO SCH (08:45)
[2019-02-28] MEDS: CLOPIDOGREL BISULFATE 75 MG TAB PO SCH (08:45)
[2019-02-28] MEDS: GABAPENTIN 300 MG CAP PO SCH ×2 (08:45→12:03)
[2019-02-28] MEDS: PANTOprazole 40 MG TAB PO SCH (08:45)
[2019-02-28] MEDS: ISOSORBIDE MONO EXTENDED REL 60 MG TABCR PO SCH (08:45)
[2019-02-28] MEDS: RANOLAZINE 500 MG ER TAB PO SCH (08:46)
[2019-02-28] MEDS: AMLODIPINE BESYLATE 5 MG TAB PO SCH (08:46)
[2019-02-28] MEDS ORDERED: FUROSEMIDE 20 MG TAB PO SCH (09:00)
--- NOTE | 2019-02-28 10:25 | Discharge Summary ---
Date of Service February 28, 2019 Admission HPI Per Admitting Provider 89 y/o female presented to the ED with non-radiating chest pain and SOB. She had a tissue valve replacement 1.5 weeks prior and has been doing well. No F/C, cough, syncope, calf pain. She has noticed slight increase in ankle edema. She takes warfarin and is therapeutic at 2.8. As I am seeing the patient, she has no chest pain. Her initial Pox was 84% on RA. This rebounded to 99% on 3L nc. Primary Care Provider: Julius Zamora MD Admission Exam Per Admitting Provider General- adult female, NAD Head- atraumatic Eyes- PERRL, EOMI, anicteric ENT- oropharynx clear Neck- supple, no JVD, no adenopathy, no thyromegaly. Lungs- Crackles 1/[address] up b/l. Heart- regular rhythm; no murmur, no gallop, no rub appreciated Abdomen- normal bowel sounds, soft, nontender. Extremities- no pretibial edema, no calf tenderness; peripheral pulses intact Neuro- alert, oriented x 3; PERRL, EOMI; motor operator II-XII grossly intact Skin- warm & dry Principal Diagnosis Acute on chronic diastolic heart failure, chronic stable angina Discharge Exam General Appearance: Awake, alert & oriented, comfortable in general, NAD. Very pleasantly conversational. CV: +S1S2 RRR, no murmur. Right upper chest pacemaker in place. Pulm: Clear to auscultation throughout. On room air. Abdomen: +BS, soft, non-tender, non-distended. Ostomy in place. Extremities: No pedal edema or calf tenderness. Moving all extremities naturally and easily. Neuro: No gross neuro deficits. Discharge Data Allergies Allergy/AdvReac Type Severity Reaction Status Date / Time sodium lauryl sulfate Allergy Intermediate HIVES & Verified 12/14/18 13:21 WELTS bee venom protein (honey bee) Allergy Unknown ANAPHYLAXIS Verified 12/14/18 13:21 Consultations Cardiology consultation assessment and plan on February 27, 2019 IMPRESSION: 1. Acute on chronic diastolic heart failure. 2. Chronic stable angina. 3. Status post transcatheter aortic valve replacement with a 23 mm Mahajan Jeniffer valve, 02/17/2019. 4. Covered stent placed in her axillary artery due to extravasation of contrast post-TAVR placement. 5. 7-cm abdominal aortic aneurysm. 6. Three-vessel coronary artery disease, essentially living off of her right coronary artery. I reassured Paige, she looks much better than when I last saw her. She is receiving IV diuretics. She does have some mild angina this morning. I would increase her Imdur to 60 mg in the morning and 30 mg at night and this can be up titrated as her blood pressure allows. In the past, she has not tolerated higher doses of Ranexa. The other option would be to try to increase her amlodipine. Her hemoglobin, although lower than it was 3 months ago is stable at this point. I do not appreciate a diastolic murmur to suggest that she is having a significant perivalvular or valvular leak across the prosthesis. We will continue adjusting her medical therapy. Ordered Studies Transthoracic echocardiogram on February 27, 2019 (see full report) - Dilated inferior vena cava with reduced collapsibility with sniff indicates an elevated right atrial pressure of 15 mmHg. - Dilated ascending aorta at 4.1 cm. - There is severe mitral annular calcifications. - The right ventricle is normal in size and function. - The right ventricular systolic function is normal as assessed by tricuspid annular plane systolic excursion (TAPSE) (normal > 1.5 cm). - The left ventricle is grossly normal size. - Focal thickening of the basal septum with no evidence of left ventricular outflow obstruction. - Left ventricular systolic function is normal. - Ejection fraction equals 65-70%. - Left ventricular wall motion is normal. - There is a well-seated Mahajan jeniffer 3 aortic valve replacement (23 mm). - There is no significant valvular or paravalvular regurgitation. - Appropriate hemodynamics across the bioprosthetic aortic valve. - The tricuspid regurgitant jet is inadequate to assess pulmonary vein pressures. Hospital Course (1) Acute diastolic CHF (congestive heart failure): 89-year-old female was admitted on February 27, 2019 for non-radiating chest pain and shortness of breath. Acute diastolic heart failure, CAD, chronic angina: Notably s/p transaxillary TAVR for severe aortic stenosis on as well as an axillary stent during the procedure. Admit TnI 0.055, stable on serial checks. EKG is sinus rhythm 62, 1st degree AV block, RBBB, LAFB. pCXR suggestive of pulmonary edema. 09Nov TTE noted normal hemodynamics across bioprosthetic aortic valve, EF 65-70%, with multiple other findings (see full report). Much improvement with fluid status via IV Lasix. Symptoms thought to be transient fluid overload s/p procedure. - Given Lasix IV on admit and an additional IV 40mg Lasix on the day of dischrage. Kept on prior home dosing of Plavix, metoprolol, amlodipine. - Will increase home lasix to 40mg PO for 3 days, then resume lower dose of 20mg lasix po afterwards. - Seen by cardiology who added Imdur 30 mg in PM (kept 60 mg in AM). Noted could increase her amlodipine next if needed. - Seen by physical therapy. Noted no CP/angina with walking with them. Did note she would benefit from home health PT (6-clicks mobility score of 20/24). - Did an informal check of SpO2 on ambulation. Remained asymptomatic and kept her SpO2 > 90% for the vast majority (worst in high 80s). - Recheck BMP in 1 week. Hypokalemia: As low as K 3.1, likely related to increased Lasix dosing. Suspect is transient. Monitored, stable. Anemia: Admit hemoglobin 10.8, stable on recheck. No present evidence of bleeding. Ongoing medical issues: - Hypertension, hyperlipidemia: Continue amlodipine, Imdur, and metoprolol. Also on Ranexa and rosuvastatin. Has dual chamber pacemaker. - History of pulmonary embolism: On Coumadin. Admit INR 2.8. - Aneurysm of the infrarenal abdominal aorta: Reportedly 7 mm AAA with repair on hold prior to aortic TAVR. - Ulcerative colitis, prior total colectomy and ileostomy: Presently asymptomatic. - CKD stage II: Admit Cr 1.1. - Trigeminal neuralgia: Continue home gabapentin, Trileptal. - ? GERD: On home protonix. - ? Hyponatremia: Reportedly related to side effect from trigeminal neuralgia medications. Is on a salt tab at home. Code status: Full code. (2) Coronary artery disease: (3) Angina pectoris: (4) Hypokalemia: (5) Anemia: (6) Hypertension: (7) Hyperlipidemia: (8) PE (pulmonary embolism): (9) Aneurysm of infrarenal abdominal aorta: (10) Ulcerative colitis: (11) Chronic kidney disease, stage II (mild): (12) Trigeminal neuralgia: Total Time Total Time Spent Total Time Spent (In Minutes): > 30 min Discharge Plan Discharge Items Patient Disposition: Home - Self-Care Reason For Visit: EXACERBATION CHF Discharge Diagnosis: Acute on chronic diastolic heart failure Activity: Per Instructions section Non-emergency contact: Primary Care Provider and Decatizer Call non-emergency contact if: you have any medication questions Follow-up/Referrals: Julius Zamora MD [Primary Care Provider] - Diet: Regular Addtl Attending Provider Instructions: You were admitted to the hospital on February 27, 2019 for chest pain and shortness of breath. While in the hospital, you were evaluated both by the inpatient team as well as cardiology. The leading thought is that following your aortic valve surgery two weeks ago you had some increased fluid retention both in your legs and your lungs. We were able to relieve some of this with a medicine called Lasix. Fortunately, this significantly improved your symptoms quickly. Cardiology also recommended adding an additional dose of your Imdur (isosorbide mononitrate) in the evening as well as temporarily increasing your lasix dose. - To clarify, you should still take your Imdur 60 mg daily every morning. - A new prescription for Imdur 30 mg daily was written that you should take every evening. - Cardiology recommends you take two tablets of Lasix (40 mg total) for the next three days (Friday, Friday, Friday). Then you return to your normal one tablet of lasix (20 mg per tablet) daily. Otherwise, please continue to take all of your previous routine home medications the same as you were prior to this hospitalization. Please continue to have close follow-up with both your primary care provider as well as your cylinder machine operator. Please return to the emergency department if you have any return feeling of new chest pain, difficulty breathing, increased swelling in your legs, or any other emergent concerns. - Cardiology recommends you follow up with them in the next 7 to 10 days. You will need to have a BMP (basic metabolic panel) to check your kidney function and electrolytes in 1 week. This has been ordered. You can get this lab completed at the [facility] office located at [address]. This is the same office where you see Dr. Clark. Pending Studies at Discharge: No Stand-Alone Forms: [facility], Smoking Cessation Medications and DC Order Prescriptions: New isosorbide mononitrate 30 mg Tablet Extended Release 24 Hr 30 mg PO QPM Qty: 30 RF: 0 isosorbide mononitrate 60 mg Tablet Extended Release 24 Hr 60 mg PO QAM Qty: 30 RF: 0 Continued sodium chloride 1 gram Tablet 1 g PO DAILY RF: 0 oxcarbazepine [Trileptal] 300 mg Tablet 300 mg PO QID RF: 0 clopidogrel [Plavix] 75 mg Tablet 75 mg PO DAILY RF: 0 pantoprazole [Protonix] 40 mg Tablet,Delayed Release (Dr/Ec) 40 mg PO DAILY RF: 0 nitroglycerin [Nitrostat] 0.4 mg Tablet, Sublingual 0.4 mg Sublingual DIRECTED PRN (Reason: Chest Pain) RF: 0 metoprolol succinate [Toprol XL] 25 mg Tablet Extended Release 24 Hr 25 mg PO DAILY RF: 0 epinephrine [EpiPen 2-Percy] 0.3 mg/0.3 mL Auto-Injector 0.3 mg IM DIRECTED PRN (Reason: Allergic Reaction) RF: 0 multivitamin with minerals Tablet 1 tab PO QPM RF: 0 ranolazine [Ranexa] 500 mg Tablet Extended Release 12 Hr 500 mg PO Q12H RF: 0 warfarin [Coumadin] 6 mg tablet See Patient Comments PO DAILY RF: 0 gabapentin 300 mg capsule 300 mg PO QID 30 Days Qty: 120 RF: 5 amlodipine 5 mg tablet 5 mg PO DAILY RF: 0 ergocalciferol (vitamin D2) [Drisdol] 50,000 unit capsule 50,000 unit PO MO Qty: 12 RF: 0 tramadol 50 mg Tablet 50 - 100 mg PO BID PRN (Reason: Pain) RF: 0 furosemide [Lasix] 20 mg tablet 20 mg PO DAILY RF: 0 acetaminophen [Tylenol] 325 mg Capsule 325 - 650 mg PO Q4 PRN (Reason: Pain) RF: 0 magnesium oxide 400 mg (241.3 mg magnesium) Tablet 400 mg PO HS Qty: 30 RF: 0 rosuvastatin [Crestor] 20 mg Tablet 20 mg PO QAM Qty: 30 RF: 0 Discontinued isosorbide mononitrate 60 mg tablet extended release 24 hr 60 mg PO DAILY RF: 0 Discharge Orders: Discharge Order (Routine); Ordered 02/28/19 Ordered By: Giancarlo Luis Admission Data Admit Date/Time: 02/27/19 04:06 Attending Provider: Alfa Benoit Admit Provider: Jose Leggett Primary Care Provider: Julius Zamora Other Providers: Jose Leggett ; Rafael Clark Other Interventions: Discharge Summary Assessment (RN) Last Done: 02/28/19 11:00 Supervising Physician Co-Signing Physician Notes Patient seen and examined with PYG-3 Dr. Luis. Agree with history, exam findings, assessment and plan of care as outlined. In brief, Ms. Ely is an 89 year old female with history of CAD, chronic angina, CKD, trigeminal neuralgia, anemia, HTN, prior PE (anticoagulated with coumadin) admitted with dyspnea, found to be fluid overloaded with pulmonary edema on chest xray. She has received IV lasix 40mg x 2 since admission and has diuresed well. She received an additional 40mg IV lasix on the day of discharge. Dr. Clark has asked that she increase her home lasix dose to 40mg for the 3 days following discharge then decrease back down to her normal 20mg lasix. On the day of discharge, she was able to ambulate without dyspnea without supplemental oxygen. She has chronic angina. Her imdur was changed to 60mg qAM and 30mg qHS. A BMP was ordered for 1 week from discharge in the [facility] system for her to check her Cr and K. She will follow up with Dr. Clark in 7-10 days. Resident Activity Tracking Resident Involvement: Resident Care Provided Care Provided: [facility]
--- NOTE | 2019-02-28 10:41 | Cardiology Progress Note ---
Date of Service February 28, 2019 Subjective She did have slight angina this morning. She did ambulate in the hallway and dropped her sat very briefly to 87% having started at 93 to 94%. She has any lightheadedness or dizziness. She does feel better. She still has faint crackles in the bases bilaterally. She has a cough fevers chills or sweats. She has any dark stools or black stools she does have significant bruising from her procedure. She looks better and feels better. Results & Data Vital Signs (Past 12 Hours) Vital Signs Temp Pulse Resp BP Pulse Ox 02/28/19 07:12 36.8 C 65 18 137/77 91 02/28/19 03:34 36.4 C L 60 18 166/83 H 90 02/27/19 23:34 36.5 C 63 16 114/76 90 PHYSICAL EXAMINATION: GENERAL: She is awake, alert and oriented x3. She actually looks better HEENT: 2+ carotid upstrokes, no evidence of carotid bruits. Jugular venous pressure appears normal. Sclerae is anicteric. Hearing is normal. LUNGS: She has crackles in the bases bilaterally. No rhonchi or wheezing. HEART: Regular rate and rhythm. Soft systolic ejection murmur at the right sternal border. There were no appreciable diastolic murmurs across her TAVR. ABDOMEN: Soft, nontender, nondistended. Positive bowel sounds. EXTREMITIES: No clubbing, cyanosis or edema. PSYCHIATRIC: Her affect is appropriate IMPRESSION: 1. Acute on chronic diastolic heart failure. 2. Chronic stable angina. 3. 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 4. Covered stent placed in her axillary artery due to extravasation of contrast post-TAVR placement. 5. 7-cm abdominal aortic aneurysm. 6. Three-vessel coronary artery disease, essentially living off of her right coronary artery. Her echo reveals normal LV function. She has normal gradients across her TAVR. There was no paravalvular or valvular aortic insufficiency. I believe her heart failure symptoms are related to third spacing from her procedure. She then reabsorb the fluid and ended up having heart failure symptoms. I did give her 40 mg of IV Lasix this morning before she is discharged. I would then have her take 40 mg of Lasix Friday. I will see her in the office in 7 to 10 days time. She will need a BMP in a week to make sure that her potassium and creatinine are stable. She should be discharged on the higher dose of indoor with 60 mg in the morning and 30 mg in the evening. If she continues to have angina we will increase her Imdur to 60 mg twice daily. She is to remain on the rest of her medical regimen. All this was discussed with the patient and the hospitalist service
[2019-02-28] MEDS ORDERED: FUROSEMIDE 40 MG/4 ML VIAL IV ONE (11:40)
== END 2019-02-28 14:26 | disposition home or self-care (01) | DRG 291 ==
LOC: ED 01:28 → SUATTDRO 04:06 → 2S 04:06

== ENCOUNTER 2020-04-03 19:06 | Observation (INO) ==
--- NOTE | 2020-04-03 19:27 | Emergency Department Note ---
Impression & Plan CHF (congestive heart failure), Hypertensive emergency ED Provider Note NAME: LEONARD NAYAK AGE: 89 SEX: F : 1930 ARRIVES VIA: Walk-In INFORMANT: Patient, ED PROVIDER(S): Jorge Bowman MD Chief Complaint: Shortness of breath HPI: Patient does present with worsening shortness of breath. Patient states the tip of the right lower extremity is swollen the patient has noticed increasing swelling in her left lower extremity. The patient states she has been compliant with her medications taking her Lasix as well as her Coumadin. Patient did complain of some orthopnea. Patient has chronic nonproductive c ough. The patient states that she noticed an area that was leaking from her left lower extremity. The patient does complain of orthopnea and exertional dyspnea. Upon presentation the patient did require some supplemental oxygen which did improve her breathing as the patient was having difficulty with speaking sentences. Patient does complain of centralized dull nonradiating chest discomfort. Patient denies any nausea or vomiting. The patient denies any sweaty episodes. Patient states it may feel somewhat similar to when she has required stents. Patient does not wear oxygen at home. ROS: See HPI for pertinent positives and negatives. A total of 10 systems were reviewed and otherwise negative. Past medical history: See below Surgical history: See below Social history: See below Physical Exam: GENERAL: Mild distress, nasal cannula in place, wearing a mask. EYE EXAM: Normal conjunctiva. PERRL, no anisocoria and EOM's grossly intact w/o pain. NECK: Supple, no nuchal rigidity, no adenopathy, non-tender. No signs of meningismus. LUNGS: Crackles and wheezing in the bilateral lung de [place]. Normal chest wall mechanics. HEART: NSR, systolic ejection murmur noted. ABDOMEN: Abdomen soft, non-tender, normo-active bowel sounds, no masses, no rebound or guarding. BACK: No CVA TTP. SKIN: No rashes and no bruising. UPPER EXTREMITIES: Upper extremities are grossly normal. LOWER EXTREMITIES: Grossly normal, 2-3+ bilateral lower extremity edema, no calf pain, small wound with well forming eschar over the left lower extremity. NEURO EXAM: A&O x3, cranial nerves II-XII grossly intact, normal speech, moves all 4 extremities on command w/o issue. Differential diagnoses: Cardiac ischemia, aortic dissection, pulmonary embolism, pneumothorax, pneumonia, pericarditis, myocarditis, esophageal rupture, GERD, cholecystitis, pancreatitis, musculoskeletal, as well as other pathologies. Course: Patient was seen and evaluated the bedside. Full history physical exam was performed. EKG: Indication: Shortness of breath AV dual paced rhythm, rate of 62, prolonged TX and wide QRS, left bundle branch block pattern. Imaging Studies: Radiology results as stated below per my review in the radiologist's interpretation: XR chest 1V portable CLINICAL HISTORY: Atypical chest pain COMPARISON STUDY: 12/28/2019 FINDINGS: The heart is enlarged. There is diffuse elevation of interstitium. There are more focal airspace opacities at the lung bases. There are small bilateral pleural effusions.[ IMPRESSION: Cardiomegaly, and diffuse elevation of the interstitium. Congestive failure with interstitial edema is favored although a diffuse bilateral interstitial infectious/inflammatory processes could appear similar. Clinical and radiographic follow-up is recommended ACT 112: Negative or not required by law. Electronically signed by: Vinicius Cerda M.D. 04/03/2020 8:01 PM Dictated: 04/03/201958 Transcribed: 04/03/201958 Cardiac monitoring: An order was placed for continuous cardiac monitoring. The monitor shows a rate of 71 with paced rhythm. MDM: Patient did present with concern for chest pain and shortness of breath. Blood work was obtained with an EKG troponin chest x-ray. Patient has a normal white count and very mild anemia with a hemoglobin 11.8. Platelet count 125. The patient's kidney function does show some potential prerenal azotemia the patient likely does have volume overload given the patient's elevated BNP weight gain orthopnea and lower extremity swelling. The patient did have improvement in her symptoms with regards to her chest pain as well as her shortness of breath. Rapid Covid was negative. Given the patient's age comorbidities chest pain hypertension and likely CHF I did recommend the patient be admitted. I did speak to the on-call hospitalist Dr. Rowell. The patient was admitted to the medicine service. Critical Care: I have personally spent 35 minutes of critical care time in direct management of this patient. This includes bedside care, interpretation of diagnostic studies, and testing, discussion with consultants, patient, and family members, and other require inpatient management activities. This 35 minutes is in excess of all separately billable procedures. Past Med/Surg History Medical History (Updated 04/03/20 @ 22:34 by Jorge Bowman MD) Aortic aneurysm Breast cancer Chronic kidney disease, stage II (mild) FH: total knee replacement HTN (hypertension) Hyponatremia Ileostomy in place Pulmonary embolism Trigeminal neuralgia Vitamin D deficiency Surgical History H/O cardiac catheterization H/O total colectomy H/O: hysterectomy S/P breast lumpectomy S/P shoulder surgery Family History Mother Cancer Acute myocardial infarction Uterine cancer Hypertension Father Cancer Prostate cancer Social History Smoking Status: Never smoker Second Hand Exposure: No; Hx Alcohol Use: No Hx Substance Use: No Preferred Language: Kazakh Communication Ability: Effective Leasing Consultant Required: No Beliefs That Will Affect Care: None Current Living Situation: Family Current Living Situation Comment: Grand son lives with patie Feels Safe at Home: Yes Assistive Devices: Walker Allergies Allergies Allergy/AdvReac Type Severity Reaction Status Date / Time bee venom protein (honey bee) Allergy Severe ANAPHYLAXIS Verified 04/03/20 21:26 sodium lauryl sulfate Allergy Intermediate HIVES & Verified 04/03/20 21:26 [facility] Home Medications Medication Instructions Recorded Confirmed clopidogrel [Plavix] 75 mg PO QAM 01/16/18 04/03/20 epinephrine [EpiPen 2-Percy] 0.3 mg IM DIRECTED PRN 01/16/18 04/03/20 metoprolol succinate [Toprol XL] 25 mg PO QAM 01/16/18 04/03/20 multivitamin with minerals 1 tab PO DAILY 01/16/18 04/03/20 nitroglycerin [Nitrostat] 0.4 mg SUBLINGUAL DIRECTED PRN 01/16/18 04/03/20 pantoprazole [Protonix] 40 mg PO DAILY 01/16/18 04/03/20 ranolazine [Ranexa] 500 mg PO Q12H 01/16/18 04/03/20 sodium chloride 1 g PO QAM 01/16/18 04/03/20 tramadol 50 - 100 mg PO BID PRN 07/28/18 04/03/20 rosuvastatin 20 mg tablet 20 mg PO HS tab 04/26/19 04/03/20 acetaminophen [Tylenol Extra 500 mg PO Q6H PRN 07/01/19 04/03/20 Strength] isosorbide mononitrate 30 mg PO HS 07/01/19 04/03/20 furosemide 20 mg tablet 20 mg PO BID tab 07/28/19 04/03/20 ferrous sulfate 325 mg (65 mg 325 mg PO BID 10/19/19 04/03/20 iron) tablet warfarin 6 mg tablet 6 mg PO .7XW tab 03/15/20 04/03/20 Previous Rx's Medication Instructions Recorded magnesium oxide 400 mg PO HS #30 tab 07/31/18 isosorbide mononitrate 60 mg PO QAM #30 tab 02/28/19 baclofen 10 mg tablet 10 mg PO TID PRN #90 tab 10/22/19 gabapentin 300 mg capsule 300 mg PO QID 90 Days #360 cap 10/22/19 oxcarbazepine 300 mg tablet 300 mg PO QID #360 tab 10/22/19 ergocalciferol (vitamin D2) 1,250 50,000 unit PO MO #12 cap 12/17/19 mcg (50,000 unit) capsule Results & Data (ED) Vital Signs Vital Signs - 24 hr 04/03/20 19:18 04/03/20 19:48 04/03/20 20:50 Temperature 36.6 C Temperature Source Oral Pulse Rate 71 73 Pulse Rate [Apical] Pulse Rate from SpO2 Sensor 62 Respiratory Rate 22 26 H Respiratory Effort / Characteristics Non-Labored Respiratory Depth Normal Blood Pressure 181/89 H 165/91 H Blood Pressure [Right Arm] Blood Pressure Mean 119 116 Blood Pressure Mean [Right Arm] Pulse Oximetry 90 98 94 Oxygen Delivery Method Room Air Room Air Oxygen Flow Rate 4 Sepsis Recent Fever Within 48 Hours No Sepsis New/Unexplained Change in Mental Status No Sepsis Action Taken by Nursing No Action Required 04/03/20 20:56 04/03/20 21:00 04/03/20 21:21 Temperature Temperature Source Pulse Rate 106 H 101 H Pulse Rate [Apical] 98 H Pulse Rate from SpO2 Sensor 62 61 Respiratory Rate 20 37 H 28 H Respiratory Effort / Characteristics Respiratory Depth Blood Pressure 169/86 H 157/82 H Blood Pressure [Right Arm] 165/91 H Blood Pressure Mean 104 107 Blood Pressure Mean [Right Arm] 115 Pulse Oximetry 95 95 97 Oxygen Delivery Method Room Air Oxygen Flow Rate 4 Sepsis Recent Fever Within 48 Hours Sepsis New/Unexplained Change in Mental Status Sepsis Action Taken by Nursing 04/03/20 21:30 Temperature Temperature Source Pulse Rate 119 H Pulse Rate [Apical] Pulse Rate from SpO2 Sensor 72 Respiratory Rate 28 H Respiratory Effort / Characteristics Respiratory Depth Blood Pressure 134/83 Blood Pressure [Right Arm] Blood Pressure Mean 95 Blood Pressure Mean [Right Arm] Pulse Oximetry 96 Oxygen Delivery Method Oxygen Flow Rate Sepsis Recent Fever Within 48 Hours Sepsis New/Unexplained Change in Mental Status Sepsis Action Taken by Shelter Medications Current Medication List: was personally reviewed by me Laboratory Data Attestation: I reviewed the patient's lab results. Result diagrams: 04/03/20 20:28 04/03/20 20:28 Lab Results 04/03/20 04/03/20 04/03/20 Range/Units 20:28 20:28 20:28 WBC 5.61 (4.8-10.8) K/uL RBC 3.96 L (4.2-5.4) M/uL Hgb 11.8 L (12.0-16.0) g/dL Hct 37.2 (37-47) % MCV 93.9 (80-100) fL MCH 29.8 (25-34) pg MCHC 31.7 L (32-36) g/dL RDW Std Deviation 47.9 H (36.4-46.3) fL RDW Coeff of Boy 13.9 (11.5-14.5) % Plt Count 125 L (130-400) K/uL MPV 10.1 (7.4-10.4) fL Immature Gran % (Auto) 0.0 % Neut % (Auto) 62.5 % Lymph % (Auto) 24.2 % [place] % (Auto) 8.6 % Eos % (Auto) 4.3 % Baso % (Auto) 0.4 % Neut # (Auto) 3.51 (1.4-6.5) K/uL Lymph # (Auto) 1.36 (1.2-3.4) K/uL [place] # (Auto) 0.48 (0.11-0.59) K/uL Eos # (Auto) 0.24 (0-0.5) K/uL Baso # (Auto) 0.02 (0-0.2) K/uL Immature Gran # (Auto) 0.00 (0.00-0.02) K/uL PT 14.2 H (9.0-12.0) Seconds INR 1.4 H (0.9-1.1) APTT 26.4 (21.0-31.0) Seconds PTT Ratio 0.9 Sodium 144 (136-145) mmol/L Potassium 4.7 (3.5-5.1) mmol/L Chloride 115 H (98-107) mmol/L Carbon Dioxide 24 (21-32) mmol/L Anion Gap 4.0 (3-11) BUN 25 H (7-18) mg/dl Creatinine 1.07 (0.6-1.2) mg/dl Est Cr Clr Drug Dosing 37.1 ml/min Est GFR ( Amer) 53.7 Est GFR (Non-Af Amer) 46.3 BUN/Creatinine Ratio 23.5 H (10-20) Glucose 97 (70-99) mg/dl Calcium 9.4 (8.5-10.1) mg/dl Total Bilirubin 0.3 (0.2-1) mg/dl AST 28 (15-37) U/L ALT 25 (12-78) U/L Alkaline Phosphatase 257 H (45-117) U/L Troponin I 0.029 (0-0.045) ng/ml NT-Pro-B Natriuret Pep 3016 H (0-1800) pg/ml Total Protein 7.3 (6.4-8.2) gm/dl Albumin 3.0 L (3.4-5.0) gm/dl Globulin 4.3 H (2.5-4.0) gm/dl Albumin/Globulin Ratio 0.7 L (0.9-2) Lipase 95 (73-393) U/L SARS-CoV-2 Ag (Rapid) (Negative) 04/03/20 Range/Units Unknown WBC (4.8-10.8) K/uL RBC (4.2-5.4) M/uL Hgb (12.0-16.0) g/dL Hct (37-47) % MCV (80-100) fL MCH (25-34) pg MCHC (32-36) g/dL RDW Std Deviation (36.4-46.3) fL RDW Coeff of Boy (11.5-14.5) % Plt Count (130-400) K/uL MPV (7.4-10.4) fL Immature Gran % (Auto) % Neut % (Auto) % Lymph % (Auto) % [place] % (Auto) % Eos % (Auto) % Baso % (Auto) % Neut # (Auto) (1.4-6.5) K/uL Lymph # (Auto) (1.2-3.4) K/uL [place] # (Auto) (0.11-0.59) K/uL Eos # (Auto) (0-0.5) K/uL Baso # (Auto) (0-0.2) K/uL Immature Gran # (Auto) (0.00-0.02) K/uL PT (9.0-12.0) Seconds INR (0.9-1.1) APTT (21.0-31.0) Seconds PTT Ratio Sodium (136-145) mmol/L Potassium (3.5-5.1) mmol/L Chloride (98-107) mmol/L Carbon Dioxide (21-32) mmol/L Anion Gap (3-11) BUN (7-18) mg/dl Creatinine (0.6-1.2) mg/dl Est Cr Clr Drug Dosing ml/min Est GFR ( Amer) Est GFR (Non-Af Amer) BUN/Creatinine Ratio (10-20) Glucose (70-99) mg/dl Calcium (8.5-10.1) mg/dl Total Bilirubin (0.2-1) mg/dl AST (15-37) U/L ALT (12-78) U/L Alkaline Phosphatase (45-117) U/L Troponin I (0-0.045) ng/ml NT-Pro-B Natriuret Pep (0-1800) pg/ml Total Protein (6.4-8.2) gm/dl Albumin (3.4-5.0) gm/dl Globulin (2.5-4.0) gm/dl Albumin/Globulin Ratio (0.9-2) Lipase (73-393) U/L SARS-CoV-2 Ag (Rapid) Negative (Negative) Administered Medications Discontinued Medications Fentanyl Citrate (Fentanyl Citrate 100 Mcg/2 Ml Vial) 25 mcg IV NOW STA Stop: 04/03/20 21:23 Last Admin: 04/03/20 21:52 Dose: 25 mcg Documented by: [id number] Furosemide (Furosemide 40 Mg/4 Ml Vial) 40 mg IV NOW STA Stop: 04/03/20 19:37 Last Admin: 04/03/20 20:56 Dose: 40 mg Documented by: [id number] Nitroglycerin (Nitroglycerin 2% Ointment 30gm Tube) 0.5 inch EXT NOW ONE Stop: 04/03/20 19:37 Last Admin: 04/03/20 20:43 Dose: 0.5 inch Documented by: [id number] Nitroglycerin (Nitroglycerin Sl 0.4 Mg/Tab Tab) 0.4 mg SL NOW STA Stop: 04/03/20 21:23 Last Admin: 04/03/20 21:32 Dose: 0.4 mg Documented by: [id number] Discharge Plan Visit Data Chief Complaint: Cardiac Assessment Stated Complaint: CHEST PAIN,SOB ED Provider: Jorge Bowman Discharge Problem: CHF (congestive heart failure), Hypertensive emergency Forms Stand Alone Forms: [facility] Prescriptions Prescriptions: No Action sodium chloride 1 gram Tablet 1 g PO QAM RF: 0 clopidogrel [Plavix] 75 mg Tablet 75 mg PO QAM RF: 0 pantoprazole [Protonix] 40 mg Tablet,Delayed Release (Dr/Ec) 40 mg PO DAILY RF: 0 nitroglycerin [Nitrostat] 0.4 mg Tablet, Sublingual 0.4 mg Sublingual DIRECTED PRN (Reason: Chest Pain) RF: 0 metoprolol succinate [Toprol XL] 25 mg Tablet Extended Release 24 Hr 25 mg PO QAM RF: 0 epinephrine [EpiPen 2-Percy] 0.3 mg/0.3 mL Auto-Injector 0.3 mg IM DIRECTED PRN (Reason: Allergic Reaction) RF: 0 multivitamin with minerals Tablet 1 tab PO DAILY RF: 0 ranolazine [Ranexa] 500 mg Tablet Extended Release 12 Hr 500 mg PO Q12H RF: 0 rosuvastatin [Crestor] 20 mg tablet 20 mg PO HS RF: 0 ferrous sulfate [FeroSul] 325 mg (65 mg iron) tablet 325 mg PO BID RF: 0 ergocalciferol (vitamin D2) [Drisdol] 1,250 mcg (50,000 unit) capsule 50,000 unit PO MO Qty: 12 RF: 0 oxcarbazepine [Trileptal] 300 mg tablet 300 mg PO QID Qty: 360 RF: 1 gabapentin 300 mg capsule 300 mg PO QID 90 Days Qty: 360 RF: 1 baclofen 10 mg tablet 10 mg PO TID PRN (Reason: Muscle Spasm/face pain) Qty: 90 RF: 1 tramadol 50 mg Tablet 50 - 100 mg PO BID PRN (Reason: Pain) RF: 0 magnesium oxide 400 mg (241.3 mg magnesium) Tablet 400 mg PO HS Qty: 30 RF: 0 furosemide [Lasix] 20 mg tablet 20 mg PO BID RF: 0 isosorbide mononitrate 60 mg Tablet Extended Release 24 Hr 60 mg PO QAM Qty: 30 RF: 0 acetaminophen [Tylenol Extra Strength] 500 mg Tablet 500 mg PO Q6H PRN (Reason: Pain) RF: 0 isosorbide mononitrate 30 mg tablet extended release 24 hr 30 mg PO HS RF: 0 warfarin 6 mg tablet 6 mg PO .7XW RF: 0 Discharge Problem: CHF (congestive heart failure) Qualifiers: Heart failure type: unspecified Heart failure chronicity: acute on chronic Qualified Code(s): I50.9 - Heart failure, unspecified
[2020-04-03] MEDS ORDERED: NITROGLYCERIN 2% OINTMENT 30GM TUBE EXT ONE (19:36)
[2020-04-03] MEDS ORDERED: FUROSEMIDE 40 MG/4 ML VIAL IV STA (19:36)
--- NOTE | 2020-04-03 20:02 | XRay Report ---
XR chest 1V portable CLINICAL HISTORY: Atypical chest pain COMPARISON STUDY: 12/28/2019 FINDINGS: The heart is enlarged. There is diffuse elevation of interstitium. There are more focal air space opacities at the lung bases. There are small bilateral pleural effusions.[ IMPRESSION: Cardiomegaly, and diffuse elevation of the interstitium. Congestive failure with intersti tial edema is favored although a diffuse bilateral interstitial infectious/inflammatory processes cou ld appear similar. Clinical and radiographic follow-up is recommended ACT 112: Negative or not required by law. Electronically signed by: Vinicius Cerda M.D. 04/03/2020 8:01 PM
[2020-04-03 20:37] LABS: Basophils # (auto) 0.02 K/uL (0-0.2); Basophils % (auto) 0.4 %; Eosinophils # (auto) 0.24 K/uL (0-0.5); Eosinophils % (auto) 4.3 %; Hematocrit (blood only) 37.2 % (37-47); Hemoglobin 11.8 g/dL (12.0-16.0); Lymphocytes # (auto) 1.36 K/uL (1.2-3.4); Lymphocytes % (auto) 24.2 %; Mean Corpuscular Hemoglobin 29.8 pg (25-34); Mean Corpuscular Hgb Conc 31.7 g/dL (32-36); Mean Corpuscular Volume 93.9 fL (80-100); Mean Platelet Volume 10.1 fL (7.4-10.4); Monocytes # (auto) 0.48 K/uL (0.11-0.59); Monocytes % (auto) 8.6 %; Neutrophils # (auto) 3.51 K/uL (1.4-6.5); Neutrophils % (auto) 62.5 %; Platelet Count 125 K/uL (130-400); RDW Coefficient of Variation 13.9 % (11.5-14.5); RDW Standard Deviation 47.9 fL (36.4-46.3); Red Blood Count 3.96 M/uL (4.2-5.4); White Blood Count 5.61 K/uL (4.8-10.8)
[2020-04-03 20:48] LABS: INR 1.4 (0.9-1.1); Partial Thromboplastin Ratio 0.9; Partial Thromboplastin Time 26.4 Seconds (21.0-31.0); Prothrombin Time 14.2 Seconds (9.0-12.0)
[2020-04-03 20:56] LABS: BUN Creatinine Ratio 23.5 (10-20); Calcium 9.4 mg/dl (8.5-10.1); Creatinine Clr Calc Pharmacy 37.1 ml/min; Est GFR (African American) 53.7; Est GFR (Non-African American) 46.3; Potassium 4.7 mmol/L (3.5-5.1)
[2020-04-03 21:07] LABS: Albumin Globulin Ratio 0.7 (0.9-2); Bilirubin,Total 0.3 mg/dl (0.2-1); Globulin 4.3 gm/dl (2.5-4.0); Total Protein 7.3 gm/dl (6.4-8.2); Troponin I 0.029 ng/ml (0-0.045)
[2020-04-03] MEDS ORDERED: NITROGLYCERIN SL 0.4 MG/TAB TAB ONE (21:21)
[2020-04-03] MEDS ORDERED: fentaNYL citrate 100 MCG/2 ML VIAL IV STA (21:22)
[2020-04-03] MEDS ORDERED: NITROGLYCERIN SL 0.4 MG/TAB TAB SL STA (21:22)
[2020-04-03] MEDS ORDERED: NITROGLYCERIN SL 0.4 MG/TAB TAB SL PRN (21:22)
--- NOTE | 2020-04-03 23:02 | History & Physical Report ---
Date of Service April 03, 2020 Assessment & Plan (1) CHF (congestive heart failure): * Patient with significant past medical history of CHF. Currently on 20 mg Lasix twice daily. * Will make doses IV at this point. Consider increasing dosage to 40 twice daily in the interim. * She is diuresing well at this time. * As needed topical nitroglycerin. * Offered CPAP for positive pressure which she declines at this time. I do not feel it is necessary at this point as she has improved and is saturating well on nasal cannula and not in acute respiratory distress. * Consult patient's primary sample grinder. (2) Hypoxia: * Secondary to CHF. * As above. * COVID-19 negative. (3) Dyspnea: * Secondary to CHF. * See above. (4) Angina pectoris: * Patient with significant history of coronary artery disease status post multiple stents. * Patient currently on multiple medications for coronary artery disease. * Continue with nitroglycerin as needed. * No EKG findings of utility at this point. * Troponin not elevated. (5) Chronic stable angina: * As above. (6) Chronic kidney disease, stage II (mild): * No significant electrolyte derangements today. (7) PE (pulmonary embolism): * Continue home dosing of Coumadin. (8) Hypertension: * Continue home antihypertensives as tolerated. History of Present Illness Primary Care Provider: Julius Zamora MD Patient is an 89-year-old female with an extensive past medical history including significant coronary artery disease status post multiple stenting, prior valve replacement, infrarenal abdominal aortic aneurysm, history of PEs anticoagulated on Coumadin, ulcerative colitis status post ileostomy, NSTEMI, CKD, amongst others. Patient reports that she has been having shortness of breath over the last few days. She does have a history of CHF and has noted increasing swelling to the bilateral lower extremities. In addition, patient has been woken up at night secondary to shortness of breath. Over the last few days, she has noticed occasional episodes of chest pain which have responded to nitroglycerin. Today, the chest pain did not latia as usual. This prompted visit to the emergency department today. In the emergency department, the patient was noted to be hypoxic and requiring supplemental oxygen. Chest x-ray demonstrates mild pulmonary edema. COVID-19 testing was negative. No significant electrolyte derangements appreciated. Troponin not elevated, but not completely negligible as well. BNP elevated. She received IV Lasix and nitroglycerin as well as one-time dose of fentanyl. Patient reports complete resolve symptoms at this time. She is resting comfortably with supplemental oxygen in place. She is currently voiding clear vicki urine. Patient currently denies any complaints of chest pain. She reports that her shortness of breath is nearly resolved. She denies any complaints of headaches, dizziness, lightheadedness, palpitations, hemoptysis, nausea, vomiting, fevers, chills, recent illness, recent COVID-19 exposures. Allergies Allergy/AdvReac Type Severity Reaction Status Date / Time bee venom protein (honey bee) Allergy Severe ANAPHYLAXIS Verified 04/03/20 21:26 sodium lauryl sulfate Allergy Intermediate HIVES & Verified 04/03/20 21:26 WELTS Home Medications Medication Instructions Recorded Confirmed Type clopidogrel [Plavix] 75 mg PO QAM 01/16/18 04/03/20 History epinephrine [EpiPen 2-Percy] 0.3 mg IM DIRECTED PRN 01/16/18 04/03/20 History metoprolol succinate [Toprol XL] 25 mg PO QAM 01/16/18 04/03/20 History multivitamin with minerals 1 tab PO DAILY 01/16/18 04/03/20 History nitroglycerin [Nitrostat] 0.4 mg SUBLINGUAL DIRECTED PRN 01/16/18 04/03/20 History pantoprazole [Protonix] 40 mg PO DAILY 01/16/18 04/03/20 History ranolazine [Ranexa] 500 mg PO Q12H 01/16/18 04/03/20 History sodium chloride 1 g PO QAM 01/16/18 04/03/20 History tramadol 50 - 100 mg PO BID PRN 07/28/18 04/03/20 History magnesium oxide 400 mg PO HS #30 tab 07/31/18 04/03/20 Rx isosorbide mononitrate 60 mg PO QAM #30 tab 02/28/19 04/03/20 Rx rosuvastatin 20 mg tablet 20 mg PO HS tab 04/26/19 04/03/20 History acetaminophen [Tylenol Extra 500 mg PO Q6H PRN 07/01/19 04/03/20 History Strength] isosorbide mononitrate 30 mg PO HS 07/01/19 04/03/20 History furosemide 20 mg tablet 20 mg PO BID tab 07/28/19 04/03/20 History ferrous sulfate 325 mg (65 mg 325 mg PO BID 10/19/19 04/03/20 History iron) tablet baclofen 10 mg tablet 10 mg PO TID PRN #90 tab 10/22/19 04/03/20 Rx gabapentin 300 mg capsule 300 mg PO QID 90 Days #360 cap 10/22/19 04/03/20 Rx oxcarbazepine 300 mg tablet 300 mg PO QID #360 tab 10/22/19 04/03/20 Rx ergocalciferol (vitamin D2) 1,250 50,000 unit PO MO #12 cap 12/17/19 04/03/20 Rx mcg (50,000 unit) capsule warfarin 6 mg tablet 6 mg PO .7XW tab 03/15/20 04/03/20 History Past Med/Surg History Medical History (Updated 04/03/20 @ 23:18 by Dallas Donnelly PA-C) Aortic aneurysm Breast cancer Chronic kidney disease, stage II (mild) FH: total knee replacement HTN (hypertension) Hyponatremia Ileostomy in place Pulmonary embolism Trigeminal neuralgia Vitamin D deficiency Surgical History H/O cardiac catheterization H/O total colectomy H/O: hysterectomy S/P breast lumpectomy S/P shoulder surgery Family History Mother Cancer Acute myocardial infarction Uterine cancer Hypertension Father Cancer Prostate cancer Social History Smoking Status: Never smoker Second Hand Exposure: No; Hx Alcohol Use: No Hx Substance Use: No Preferred Language: Mauritian Communication Ability: Effective Ocean Lifeguard Required: No Beliefs That Will Affect Care: None Current Living Situation: Family Current Living Situation Comment: Grand son lives with patie Other Information That Helps Us Care for You: No Feels Safe at Home: Yes Safety Concerns: Feels Safe At This Time Assistive Devices: Walker Review of Systems Review of Systems: A complete 10 point review of systems was reviewed with the patient with pertinent positives and negatives as per history of present illness. All else were negative. Physical Exam Physical Exam: VITAL SIGNS - Vital signs and nursing notes were reviewed. GENERAL - 89-year-old female appearing her stated age who is in no acute distress. Communicates well with provider and answers questions appropriately. SKIN - Without rashes. HEAD - NC/AT. EYES - PERRL with EOMI bilaterally. Sclera anicteric. Palpebral conjunctiva pink and moist with no injection noted. EARS - No deformities of external structures noted on gross examination bilaterally. NOSE - Midline and without cyanosis. No epistaxis or purulent drainage noted. MOUTH/OROPHARYNX - Without perioral cyanosis. Buccal mucosa pink and moist and without leukoplakia. NECK - Neck with FROM. Supple to palpation. No nuchal rigidity. LUNGS - Chest wall symmetric without accessory muscle use, intercostals retractions, or central cyanosis. Normal vesicular breath sounds CTA B/L. No wheezes, rales, or rhonchi appreciated. CARDIAC - RRR with S1/S2. No murmur, rubs, or gallops appreciated. ABDOMEN - Abdominal contour obese without pulsations or visible masses. BS normoactive all four quadrants. No tenderness, palpable masses, hepatosplenomegaly, or ascites noted. Ileostomy site intact. EXTREMITIES - No clubbing or peripheral cyanosis. Moderate pretibial edema bilaterally. +3/5 radial and dorsalis pedis pulses palpated throughout. NEUROLOGIC - Cranial nerves II through XII grossly intact. Sensory intact to light touch throughout. PSYCH - A&Ox3 and cooperates fully with examiner. Pt is very pleasant and interacts well with examiner. Results & Data Results & Data ([facility]) Vital Signs (Past 12 Hours) Vital Signs Temp Pulse Pulse Resp BP BP Pulse Ox 04/03/20 21:30 119 H 28 H 134/83 96 04/03/20 21:21 101 H 28 H 157/82 H 97 04/03/20 21:00 106 H 37 H 169/86 H 95 04/03/20 20:56 98 H 20 165/91 H 95 04/03/20 20:50 73 26 H 165/91 H 94 04/03/20 19:48 98 04/03/20 19:18 36.6 C 71 22 181/89 H 90 Supervising Physician Co-Signing Physician Notes Patient seen and examined, chart reviewed, case discussed with SANDRA Donnelly and I agree with his assessment and plan as documented above. Patient presently CP free. She is diuresing well, Pure-wick catheter in place On exam she is afebrile, HD stable, NAD Skin - intact HEENT - NC/AT, PERRL, EOMI, no JVD Heart - +S1/S2, regular, no m//r/g Lungs - CTA, faint basilar crackles Abd - +BS, soft, NT/ND Ext- +edema 1+ bilaterally Labs and images reviewed Assessment/Plan: -Diuresis -Trend troponin -Cardiology appreciated -Remainder of plan as above PG Care Time/CCT Total # of Minutes Spent Total Time Spent with Patient: Total time spent is greater than 50% in coordination of care (as documented) at patient's floor/unit and/or counseling patient: Coding Level of Care Code 95190 Initial Inpt Care Lvl 3 Diagnoses CHF (congestive heart failure) I50.9 Heart failure chronicity: acute on chronic Heart failure type: unspecified Hypoxia R09.02 Dyspnea R06.00 Angina pectoris I20.9 Chronic stable angina I20.8 Chronic kidney disease, stage II (mild) N18.2 PE (pulmonary embolism) I26.99 Hypertension I10 Time Spent (min) 35 (1) CHF (congestive heart failure) Heart failure chronicity: acute on chronic Heart failure type: unspecified Qualified Code(s): I50.9 - Heart failure, unspecified
[2020-04-04] MEDS ORDERED: traMADol HCL 50 MG TABLET PO PRN (01:53)
[2020-04-04] MEDS ORDERED: ACETAMINOPHEN 500 MG TAB PO PRN (01:53)
[2020-04-04] MEDS ORDERED: BACLOFEN 10 MG TAB PO PRN (01:53)
[2020-04-04 02:08] LABS: Basophils # (auto) 0.02 K/uL (0-0.2); Basophils % (auto) 0.4 %; Eosinophils # (auto) 0.21 K/uL (0-0.5); Eosinophils % (auto) 3.8 %; Hematocrit (blood only) 42.6 % (37-47); Hemoglobin 13.6 g/dL (12.0-16.0); Lymphocytes # (auto) 0.91 K/uL (1.2-3.4); Lymphocytes % (auto) 16.6 %; Mean Corpuscular Hgb Conc 31.9 g/dL (32-36); Mean Platelet Volume 9.8 fL (7.4-10.4); Monocytes # (auto) 0.57 K/uL (0.11-0.59); Monocytes % (auto) 10.4 %; Neutrophils # (auto) 3.78 K/uL (1.4-6.5); Neutrophils % (auto) 68.8 %; Platelet Count 129 K/uL (130-400); RDW Standard Deviation 47.5 fL (36.4-46.3); Red Blood Count 4.53 M/uL (4.2-5.4); White Blood Count 5.49 K/uL (4.8-10.8)
[2020-04-04 02:17] LABS: INR 1.4 (0.9-1.1); Prothrombin Time 14.6 Seconds (9.0-12.0)
[2020-04-04 03:31] LABS: BUN Creatinine Ratio 21.3 (10-20); Calcium 9.2 mg/dl (8.5-10.1); Creatinine Clr Calc Pharmacy 34.3 ml/min; Est GFR (African American) 50.8; Est GFR (Non-African American) 43.8; Magnesium 1.9 mg/dl (1.8-2.4); Phosphorus 3.6 mg/dl (2.5-4.9); Potassium 3.6 mmol/L (3.5-5.1)
[2020-04-04] MEDS: NITROGLYCERIN 2% OINTMENT 30GM TUBE EXT SCH ×3 (06:34→17:58)
[2020-04-04] MEDS: CEROVITE ADV FORMULA TAB PO SCH (08:35)
[2020-04-04] MEDS: ISOSORBIDE MONO EXTENDED REL 60 MG TABCR PO SCH (08:36)
[2020-04-04] MEDS: FERROUS SULFATE 325 MG TAB PO SCH ×2 (08:36→16:23)
[2020-04-04] MEDS: CLOPIDOGREL BISULFATE 75 MG TAB PO SCH (08:36)
[2020-04-04] MEDS: FUROSEMIDE 20 MG in SYRINGE 0 ML IV SCH ×2 (08:36→20:10)
[2020-04-04] MEDS: RANOLAZINE 500 MG ER TAB PO SCH ×2 (08:37→20:11)
[2020-04-04] MEDS: PANTOprazole 40 MG TAB PO SCH (08:37)
[2020-04-04] MEDS: METOPROLOL SUCC 25MG EXT REL TAB PO SCH (08:38)
[2020-04-04] MEDS ORDERED: GABAPENTIN 300 MG CAP PO SCH (09:00)
[2020-04-04] MEDS ORDERED: FUROSEMIDE 40 MG/4 ML VIAL IV SCH (09:00)
[2020-04-04] MEDS ORDERED: OXcarbazepine 150 MG TABLET PO SCH (09:00)
--- NOTE | 2020-04-04 09:21 | Cardiology Consultation ---
Date of Consultation Paige has had progressive symptoms of heart failure. She has had orthopnea and worsening lower extremity edema. She has had increased abdominal distention and early satiety. She has had some chest discomfort in the center of her chest especially when she was short of breath. All of this has been ongoing over the last week or so. She came to the emergency room last night when she could not catch her breath. Nitropaste was placed along with receiving 40 mg of IV furosemide. At this point she has -1500 cc. Her lower extremity edema has improved she appears minimally dyspneic speaking in sentences and is back to her normal feisty personality. Her chest pain has resolved. She does feel mildly lightheaded even with a blood pressure in the 1 teens systolic. She denies any vertigo.She did have symptoms of trigeminal neuralgia this morning. The rest of a complete review of systems otherwise negative April 04, 2020 History of Present Illness Attending Physician: Mali Webster MD Allergies Allergy/AdvReac Type Severity Reaction Status Date / Time bee venom protein (honey bee) Allergy Severe ANAPHYLAXIS Verified 04/03/20 21:26 sodium lauryl sulfate Allergy Intermediate HIVES & Verified 04/03/20 21:26 WELTS Home Medications Medication Instructions Recorded Confirmed Type clopidogrel [Plavix] 75 mg PO QAM 01/16/18 04/03/20 History epinephrine [EpiPen 2-Percy] 0.3 mg IM DIRECTED PRN 01/16/18 04/03/20 History metoprolol succinate [Toprol XL] 25 mg PO QAM 01/16/18 04/03/20 History multivitamin with minerals 1 tab PO DAILY 01/16/18 04/03/20 History nitroglycerin [Nitrostat] 0.4 mg SUBLINGUAL DIRECTED PRN 01/16/18 04/03/20 History pantoprazole [Protonix] 40 mg PO DAILY 01/16/18 04/03/20 History ranolazine [Ranexa] 500 mg PO Q12H 01/16/18 04/03/20 History sodium chloride 1 g PO QAM 01/16/18 04/03/20 History tramadol 50 - 100 mg PO BID PRN 07/28/18 04/03/20 History magnesium oxide 400 mg PO HS #30 tab 07/31/18 04/03/20 Rx isosorbide mononitrate 60 mg PO QAM #30 tab 02/28/19 04/03/20 Rx rosuvastatin 20 mg tablet 20 mg PO HS tab 04/26/19 04/03/20 History acetaminophen [Tylenol Extra 500 mg PO Q6H PRN 07/01/19 04/03/20 History Strength] isosorbide mononitrate 30 mg PO HS 07/01/19 04/03/20 History furosemide 20 mg tablet 20 mg PO BID tab 07/28/19 04/03/20 History ferrous sulfate 325 mg (65 mg 325 mg PO BID 10/19/19 04/03/20 History iron) tablet baclofen 10 mg tablet 10 mg PO TID PRN #90 tab 10/22/19 04/03/20 Rx gabapentin 300 mg capsule 300 mg PO QID 90 Days #360 cap 10/22/19 04/03/20 Rx oxcarbazepine 300 mg tablet 300 mg PO QID #360 tab 10/22/19 04/03/20 Rx ergocalciferol (vitamin D2) 1,250 50,000 unit PO MO #12 cap 12/17/19 04/03/20 Rx mcg (50,000 unit) capsule warfarin 6 mg tablet 6 mg PO .7XW tab 03/15/20 04/03/20 History Patient History Medical History Aortic aneurysm Breast cancer Chronic kidney disease, stage II (mild) FH: total knee replacement HTN (hypertension) Hyponatremia Ileostomy in place Pulmonary embolism Trigeminal neuralgia Vitamin D deficiency Surgical History H/O cardiac catheterization H/O total colectomy H/O: hysterectomy S/P breast lumpectomy S/P shoulder surgery Family History Mother Cancer Acute myocardial infarction Uterine cancer Hypertension Father Cancer Prostate cancer Social History Smoking Status: Never smoker Second Hand Exposure: No; Hx Alcohol Use: No Hx Substance Use: No Preferred Language: Macedonian Communication Ability: Effective Hotel Server Required: No Beliefs That Will Affect Care: None Current Living Situation: Family Current Living Situation Comment: Grand son lives with patie Other Information That Helps Us Care for You: No Feels Safe at Home: Yes Safety Concerns: Feels Safe At This Time Assistive Devices: Walker Results & Data ([facility]) Vital Signs (Past 12 Hours) Vital Signs Temp Pulse Pulse Resp BP BP Pulse Ox 04/04/20 07:37 36.4 C L 04/04/20 04:00 36.5 C 95 H 20 141/94 H 94 04/04/20 01:25 36.5 C 62 22 186/88 H 95 04/04/20 01:00 83 24 175/95 H 97 04/04/20 00:30 86 24 155/87 H 96 04/03/20 23:30 101 H 24 171/92 H 96 04/03/20 23:00 111 H 24 170/101 H 98 04/03/20 22:30 62 24 142/79 H 95 04/03/20 22:00 104 H 35 H 126/68 97 04/03/20 21:30 119 H 28 H 134/83 96 04/03/20 21:21 101 H 28 H 157/82 H 97 PHYSICAL EXAMINATION: GENERAL: She is awake, alert and oriented x3. She actually looks better HEENT: 2+ carotid upstrokes, no evidence of carotid bruits. Jugular venous pressure appears normal. Sclerae is anicteric. Hearing is normal. LUNGS: She has Decreased breath sounds in the bases bilaterally. No rhonchi or wheezing. HEART: Regular rate and rhythm. Soft systolic ejection murmur at the right sternal border. There were no appreciable diastolic murmurs across her TAVR. ABDOMEN: Soft, nontender, nondistended. Positive bowel sounds. EXTREMITIES: No clubbing, cyanosis or edema. PSYCHIATRIC: Her affect is appropriate IMPRESSION: 1. Acute on chronic diastolic heart failure. 2. Chronic stable angina. 3. 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 4. Covered stent placed in her axillary artery due to extravasation of contrast post-TAVR placement. 5. 7-cm abdominal aortic aneurysm. 6. Three-vessel coronary artery disease, essentially living off of her right coronary artery. She has had a good initial diuresis of 1500 cc. I would continue with IV diuretics today. Her lower extremity edema has significantly improved and she is less short of breath talking in sentences.I did review with her if she has similar symptoms as an outpatient to let us know and we can adjust her oral diuretics over the phone or even have her receive IV diuretics in the office. For now I would leave her Nitropaste on until her volume status is better. She is not prerenal on her laboratory studies. She is known to have chronic hyponatremia Secondary to her Oxcarbazepine The rest of her current cardiac meds should remain unchanged. She is known to have a large abdominal aortic aneurysm. Vascular surgery at [facility] attempted to repair it percutaneously. Her femoral artery was so friable that they had a close and stop the procedure.
[2020-04-04] MEDS ORDERED: Nursing to Pharmacy Communication SCH (09:30)
[2020-04-04] MEDS: OXcarbazepine 150 MG TABLET PO SCH ×2 (13:15→17:50)
[2020-04-04] MEDS: GABAPENTIN 300 MG CAP PO SCH ×2 (13:15→18:25)
--- NOTE | 2020-04-04 15:48 | Hospitalist Progress Note ---
Date of Service April 04, 2020 Assessment & Plan (1) CHF (congestive heart failure): Paige is a very pleasant 89-year-old female with a notable history of [id number] HFpEF, CAD s/p multiple stent placements, chronic stable angina, s/p TAVR in 2019, history of PEs (on Coumadin), and a known AAA (7cm -- [place] [facility] who presented to [facility] on 04/03 for evaluation of progressive dyspnea over the past several weeks. She is hemodynamically stable. [id number] HFpEF with Current Exacerbation - Clinically, patient reported several-week history of worsening, generalized shortness of breath alongside PND and orthopnea. BNP elevated >3000 upon admission. - Last echocardiogram in 02/2019 demonstrated: dilated ascending aorta (4.1cm), LVEF 65-70%, and elevated right atrial pressures - Continue diuresis with Lasix 20mg IV b.i.d. for now - Clinically, patient has made improvement and has continued saturating 96%+ on 2L NC - Fluid balance approx. -1500 today so far - Cardiology consulted upon admission, appreciate recommendations: Continue diuresing for now. No changes in home medications at the moment. - Strict I&Os, daily weights while here Acute Hypoxic Respiratory Failure - Upon arrival to ED, patient was noted to be hypoxic and requiring supplemental oxygen - Diagnostic evaluation revealing of: - CXR demonstrated "congestive failure with interstitial edema", most likely consistent with pulmonary edema (rather than infectious/inflammatory process clinically) - BNP >3000 - COVID-19 testing negative - Troponin trend consistently WNL < 0.045 - Subtherapeutic INR at ~1.4 (given h/o PEs, goal: 2-3) - Likely due to [id number] HFpEF exacerbation. PE was also considered given subtherapeutic INR and chest pain, but on further history taking, seems to be more consistent with chronic angina. - Utilize supplemental O2 as needed -- expect to ween this into tomorrow given improvement - Low threshold to obtain CTA-PE should symptoms worsen/continue despite di uresis CAD s/p Multiple Stents + Chronic Stable Angina - Chronic angina is likely source of chest pain patient that patient intermittently reports prior to d/c -- however, maintain suspicion for secondary causes, including PE - Chronic angina responds well to nitroglycerin: continue to utilize PRN, if needed - Troponin < 0.045 x 2 since arrival - Heart healthy diet - Continue clopidogrel 75mg PO qAM - Continue metoprolol succinate 25mg PO qAM - Nitro-Bid PRN History of Pulmonary Emboli - INR Goal: 2-3. Fluctuating INR recently. - Continue warfarin 6mg PO daily - If subtherapeutic INR tomorrow, add +3mg PO daily of warfarin Chronic Medical Problems - CKD Stage II: Noted. Continue to follow - HTN: Continue Imdur ER 30mg PO qHS,, 60mg PO qAM - HLD: Continue rosuvastatin 20mg PO qHS - GERD: Continue Protonix 40mg PO qAM - Trigeminal Neuralgia: Continue oxcarbazepine 300mg PO q6h yue, gabapentin Warfarin Conditional code Low salt diet, (2) Hypoxia: (3) Dyspnea: (4) Angina pectoris: (5) Chronic stable angina: (6) Chronic kidney disease, stage II (mild): (7) PE (pulmonary embolism): (8) Hypertension: Admission and Anticipated Discharge Date Admission Date: April 03, 2020 Supervising Physician Co-Signing Physician Notes Resident Physician Supervision Note: I independently interviewed and examined the patient and verified the arias history and physical, reviewed labs and image studies, discussed the case with the resident Dr. Grigsby and agree with the findings and care plan. Subjective Patient seen at the bedside this AM. NAEO. Feels well overall this AM. Does continue to endorse "trouble catching a breath" when she moves around a lot - such as to use the restroom - but otherwise feels she is much improved from last night. No chest pain or pressure at present. Endorses good appetite, no nausea or vomiting. On repeat visit this afternoon, she did report a pain on the right side of her face, which she reports as an episodic flare of her trigeminal neuralgia. Asking for Tylenol. On clarification of history, endorses feeling progressively short of breath over the last month. Has had to prop herself up in her chair sometimes at night to get sleep - if she lies flat, often has woken up short of breath. Also endorses occasional chest pain that did occur with this last shortness of breath. She describes it as a substernal pain that maybe intensifies to a 5/10, not exertionally related. Happens intermittently, usually with rest (this last time, was reading a book) -- maybe every several weeks, she cannot recall. She does cite history of angina. Review of Systems Review of Systems: As per HPI Physical Exam Constitutional: Well-appearing 89 year old female who is smiling, engaged, and interactive in our conversation. Fully alert and oriented. No conversational dyspnea, NAD. Respiratory: Good respiratory effort with symmetric expansion of the chest. Lungs demonstrate fine crackles in the left lower lung de oliveira. No wheezing. No conversational dyspnea. Cardiovascular: Normal rate, regular rhythm. S1/S2 present without m/r/g. No JVD appreciated. Gastrointestinal (Abdomen): NABS. Abdomen is just mildly distended. Nontender to palpation. Musculoskeletal: Approx. ~1+ pitting edema b/l. Hyperpigmentation noted on LLE, which patient cites from previous episode of cellulitis several years ago. No erythema or warmth. Results & Data Results & Data ([facility]) Vital Signs (Past 12 Hours) Vital Signs Temp Pulse Pulse Resp BP BP Pulse Ox 04/04/20 12:24 36.6 C 04/04/20 12:23 116/64 96 04/04/20 12:00 97 04/04/20 10:00 69 17 97 04/04/20 08:47 69 15 112/59 L 93 04/04/20 08:00 82 23 04/04/20 07:37 36.4 C L 04/04/20 07:01 69 12 04/04/20 04:00 36.5 C 95 H 20 141/94 H 94 Resident Activity Tracking Resident Involvement: Resident Care Provided Care Provided: Adult Hospital Medicine (1) CHF (congestive heart failure) Heart failure chronicity: acute on chronic Heart failure type: unspecified Qualified Code(s): I50.9 - Heart failure, unspecified
[2020-04-04] MEDS: WARFARIN SOD 6 MG TAB PO SCH (16:23)
[2020-04-04] MEDS: ROSUVASTATIN CALCIUM 20 MG TAB PO SCH (20:10)
[2020-04-04] MEDS: MAGNESIUM OXIDE 400 MG TAB PO SCH (20:11)
[2020-04-04] MEDS: ISOSORBIDE MONO EXTENDED REL 30 MG TABCR PO SCH (20:12)
--- NOTE | 2020-04-04 23:48 | Electrocardiogram Report ---
Test Reason : Blood Pressure : / mmHG Vent. Rate : 062 BPM Atrial Rate : 062 BPM P-R Int : 268 ms QRS Dur : 186 ms QT Int : 492 ms P-R-T Axes : 073 -89 062 degrees QTc Int : 499 ms AV dual-paced rhythm with prolonged AV conduction Abnormal ECG When compared with ECG of 28-DEC-2019 13:49, Vent. rate has decreased BY 9 BPM Confirmed by Juan Manuel Uribe ([id number]) on 04/04/2020 11:47:47 PM Referred By: REFERRED SELF Confirmed By:Juan Manuel Uribe
[2020-04-05] MEDS: GABAPENTIN 300 MG CAP PO SCH ×5 (00:40→23:43)
[2020-04-05] MEDS: OXcarbazepine 150 MG TABLET PO SCH ×5 (00:41→23:43)
[2020-04-05] MEDS: NITROGLYCERIN 2% OINTMENT 30GM TUBE EXT SCH ×5 (00:43→23:45)
[2020-04-05 05:11] LABS: Basophils # (auto) 0.01 K/uL (0-0.2); Basophils % (auto) 0.2 %; Eosinophils # (auto) 0.23 K/uL (0-0.5); Eosinophils % (auto) 4.2 %; Hematocrit (blood only) 36.7 % (37-47); Hemoglobin 11.7 g/dL (12.0-16.0); Immature Granulocytes # (auto) 0.01 K/uL (0.00-0.02); Immature Granulocytes % (auto) 0.2 %; Lymphocytes # (auto) 1.56 K/uL (1.2-3.4); Lymphocytes % (auto) 28.5 %; Mean Corpuscular Hemoglobin 29.6 pg (25-34); Mean Corpuscular Hgb Conc 31.9 g/dL (32-36); Mean Corpuscular Volume 92.9 fL (80-100); Mean Platelet Volume 10.2 fL (7.4-10.4); Monocytes # (auto) 0.51 K/uL (0.11-0.59); Monocytes % (auto) 9.3 %; Neutrophils # (auto) 3.15 K/uL (1.4-6.5); Neutrophils % (auto) 57.6 %; Platelet Count 112 K/uL (130-400); RDW Coefficient of Variation 13.8 % (11.5-14.5); RDW Standard Deviation 46.8 fL (36.4-46.3); Red Blood Count 3.95 M/uL (4.2-5.4); White Blood Count 5.47 K/uL (4.8-10.8)
[2020-04-05 05:19] LABS: INR 1.4 (0.9-1.1); Prothrombin Time 14.6 Seconds (9.0-12.0)
[2020-04-05 05:38] LABS: BUN Creatinine Ratio 22.7 (10-20); Calcium 8.5 mg/dl (8.5-10.1); Creatinine Clr Calc Pharmacy 32.6 ml/min; Est GFR (African American) 47.7; Est GFR (Non-African American) 41.1; Potassium 3.7 mmol/L (3.5-5.1)
[2020-04-05] MEDS ORDERED: WARFARIN SOD 3 MG TAB PO ONE (07:00)
--- NOTE | 2020-04-05 07:38 | Cardiology Progress Note ---
Date of Service She is feeling better this morning. She did not have any orthopnea last night. She is not short of breath talking in sentences. She has not had any further angina. She has any lightheadedness or dizziness this morning with a blood pressure of 97 systolic. She noted a little bit of wooziness last night. Her lower extremity edema has resolved. She is unaware of any palpitations or fluttering. She is anxious to walk and see how she feels. April 05, 2020 Assessment & Plan Admission and Anticipated Discharge Date Admission Date: April 03, 2020 Results & Data ([facility]) Vital Signs (Past 12 Hours) Vital Signs Temp Pulse Pulse Resp BP Pulse Ox 04/05/20 04:54 36.5 C 88 16 97/59 L 93 04/05/20 00:00 36.5 C 72 87 18 122/74 95 04/04/20 21:16 36.5 C 79 16 113/72 94 PHYSICAL EXAMINATION: GENERAL: She is awake, alert and oriented x3. HEENT: 2+ carotid upstrokes, no evidence of carotid bruits. Jugular venous pressure appears normal. Sclerae is anicteric. Hearing is normal. LUNGS: She has Decreased breath sounds in the bases bilaterally with faint crackles bilaterally HEART: Regular rate and rhythm. Soft systolic ejection murmur at the right sternal border. There were no appreciable diastolic murmurs across her TAVR. ABDOMEN: Soft, nontender, nondistended. Positive bowel sounds. EXTREMITIES: No clubbing, cyanosis or edema. PSYCHIATRIC: Her affect is appropriate IMPRESSION: 1. Acute on chronic diastolic heart failure. 2. Chronic stable angina. 3. 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 4. Covered stent placed in her axillary artery due to extravasation of contrast post-TAVR placement. 5. 7-cm abdominal aortic aneurysm. 6. Three-vessel coronary artery disease, essentially living off of her right coronary artery. I think she will need 1 more day in the hospital. We will have to see how she does ambulating. She is on oxygen with a pulse ox currently of 94% and was not on oxygen at home. I would switch her diuretics tomorrow to 40 mg of p.o. Lasix in the morning. She can continue with IV diuretics today. We will have to watch for any additional hypotension. She is negative another 500 or so cc from yesterday. She looks significantly better. Otherwise she seems relatively stable given the complexity of her medical problems.
[2020-04-05] MEDS: CEROVITE ADV FORMULA TAB PO SCH (07:45)
[2020-04-05] MEDS: RANOLAZINE 500 MG ER TAB PO SCH ×2 (07:45→20:32)
[2020-04-05] MEDS: ISOSORBIDE MONO EXTENDED REL 60 MG TABCR PO SCH (07:45)
[2020-04-05] MEDS: FERROUS SULFATE 325 MG TAB PO SCH ×2 (07:45→17:57)
[2020-04-05] MEDS: CLOPIDOGREL BISULFATE 75 MG TAB PO SCH (07:46)
[2020-04-05] MEDS: FUROSEMIDE 20 MG in SYRINGE 0 ML IV SCH ×2 (07:46→20:30)
[2020-04-05] MEDS: PANTOprazole 40 MG TAB PO SCH (07:46)
[2020-04-05] MEDS: METOPROLOL SUCC 25MG EXT REL TAB PO SCH (07:46)
--- NOTE | 2020-04-05 09:47 | Hospitalist Progress Note ---
Date of Service April 05, 2020 Assessment & Plan (1) CHF (congestive heart failure): Paige is a very pleasant 89-year-old female with a notable history of [id number] HFpEF, CAD s/p multiple stent placements, chronic stable angina, s/p TAVR in 2019, history of PEs (on Coumadin), and a known AAA (7cm -- attempted repair by [facility], unfortunately could not be completed) who presented to [facility] on 04/03 for evaluation of progressive dyspnea over the past several weeks. She is hemodynamically stable. Krddv-mj-[id number] HFpEF with Current Exacerbation - Clinically, patient reported several-week history of worsening, generalized shortness of breath alongside PND and orthopnea. BNP elevated >3000 upon admission. - Last echocardiogram in 02/2019 demonstrated: dilated ascending aorta (4.1cm), LVEF 65-70%, and elevated right atrial pressures - Continue diuresis with Lasix 20mg IV b.i.d. for now - Clinically, patient reports feeling better. No dyspneic, but is requiring 2L to saturate at 93-94% - Fluid balance approx. -1500 today so far - Cardiology consulted upon admission, following - appreciate recommendations: Continue diuresing for now. Anticipate change to Lasix 40mg PO daily tomorrow AM, watch for HoTN - Strict I&Os, daily weights while here Acute Hypoxic Respiratory Failure - Upon arrival to ED, patient was noted to be hypoxic and requiring supplemental oxygen - Diagnostic evaluation revealing of: - CXR demonstrated "congestive failure with interstitial edema", most likely consistent with pulmonary edema (rather than infectious/inflammatory process clinically) - BNP >3000 - COVID-19 testing negative - Troponin trend consistently WNL < 0.045 - Subtherapeutic INR at ~1.4 ggain today (given h/o PEs, goal: 2-3) - Likely due to [id number] HFpEF exacerbation. PE was also considered given subtherapeutic INR and chest pain, but on further history taking, seems to be more consistent with chronic angina. - Still requiring supplemental oxygen -- approx. 93-94% on 2L. Continue diuresis as above, expect this to improve and ween over course of today CAD s/p Multiple Stents + Chronic Stable Angina - Chronic angina is likely source of chest pain patient that patient intermittently reports prior to d/c -- however, maintain suspicion for secondary causes, including PE - Chronic angina responds well to nitroglycerin: continue to utilize PRN, if needed - Troponin < 0.045 x 2 since arrival - Heart healthy diet - Continue clopidogrel 75mg PO qAM - Continue metoprolol succinate 25mg PO qAM - Nitro-Bid PRN History of Pulmonary Emboli - INR Goal: 2-3. Fluctuating INR recently. - Continue warfarin 6mg PO daily (at 1600hr) - INR 1.4 today. Given addition dose of warfarin 3mg PO x 1 this AM Chronic Medical Problems - CKD Stage II: Noted. Continue to follow - HTN: Continue Imdur ER 30mg PO qHS,, 60mg PO qAM - HLD: Continue rosuvastatin 20mg PO qHS - GERD: Continue Protonix 40mg PO qAM - Trigeminal Neuralgia: Continue oxcarbazepine 300mg PO q6h yue, gabapentin PT/OT: PT ordered. Appreciate recs pending d/c PPX: Warfarin Code: Conditional code F/E/N: Low salt diet (2) Hypoxia: (3) Dyspnea: (4) Angina pectoris: (5) Chronic stable angina: (6) Chronic kidney disease, stage II (mild): (7) PE (pulmonary embolism): (8) Hypertension: Admission and Anticipated Discharge Date Admission Date: April 03, 2020 Supervising Physician Co-Signing Physician Notes Resident Physician Supervision Note: I independently interviewed and examined the patient and verified the arias history and physical, reviewed labs and image studies, discussed the case with the resident Dr. Grigsby and agree with the findings and care plan. Subjective NAEO. Reports feeing well this morning. Denies dyspnea lying in bed, though does still report getting occasionally short of breath when having to move around. No chest pain or pressure throughout her admission. Reports good appetite and energy. Eager to read - nurses brought her many books which she is excited about. Denies abdominal pain or leg pain. Feels legs are less swollen than previously. Review of Systems Review of Systems: as per HPI Physical Exam Constitutional: well appearing 89 year old female who is engaged and oriented throughout our conversation. NAD. Respiratory: Good respiratory effort with symmetric expansion of chest. Lungs demonstrate very mild crackles at the lung bases bilaterally. Cardiovascular: NRRR. S1/S2 present without m/r/g. Gastrointestinal (Abdomen): NABS. Abdomen is soft, nontender, and nondistended. Results & Data Results & Data ([facility]) Vital Signs (Past 12 Hours) Vital Signs Temp Pulse Pulse Resp BP Pulse Ox 04/05/20 04:54 36.5 C 88 16 97/59 L 93 04/05/20 00:00 36.5 C 72 87 18 122/74 95 Resident Activity Tracking Resident Involvement: Resident Care Provided Care Provided: Adult Hospital Medicine (1) CHF (congestive heart failure) Heart failure chronicity: acute on chronic Heart failure type: unspecified Qualified Code(s): I50.9 - Heart failure, unspecified
[2020-04-05] MEDS: ACETAMINOPHEN 325 MG TAB PO PRN ×2 (15:55→20:29)
[2020-04-05] MEDS: WARFARIN SOD 6 MG TAB PO SCH (15:55)
[2020-04-05] MEDS: ISOSORBIDE MONO EXTENDED REL 30 MG TABCR PO SCH (20:31)
[2020-04-05] MEDS: ROSUVASTATIN CALCIUM 20 MG TAB PO SCH (20:31)
[2020-04-05] MEDS: MAGNESIUM OXIDE 400 MG TAB PO SCH (20:32)
[2020-04-06 05:23] LABS: INR 1.5 (0.9-1.1); Prothrombin Time 15.8 Seconds (9.0-12.0)
[2020-04-06 05:40] LABS: BUN Creatinine Ratio 24.4 (10-20); Calcium 8.9 mg/dl (8.5-10.1); Creatinine Clr Calc Pharmacy 28.6 ml/min; Est GFR (African American) 41.6; Est GFR (Non-African American) 35.9; Potassium 3.4 mmol/L (3.5-5.1)
[2020-04-06] MEDS: OXcarbazepine 150 MG TABLET PO SCH ×2 (06:05→11:21)
[2020-04-06] MEDS: GABAPENTIN 300 MG CAP PO SCH ×2 (06:06→11:21)
[2020-04-06] MEDS: NITROGLYCERIN 2% OINTMENT 30GM TUBE EXT SCH ×2 (06:07→11:24)
[2020-04-06] MEDS: METOPROLOL SUCC 25MG EXT REL TAB PO SCH (07:49)
[2020-04-06] MEDS: PANTOprazole 40 MG TAB PO SCH (07:49)
[2020-04-06] MEDS: ISOSORBIDE MONO EXTENDED REL 60 MG TABCR PO SCH (07:49)
[2020-04-06] MEDS: CLOPIDOGREL BISULFATE 75 MG TAB PO SCH (07:49)
[2020-04-06] MEDS: RANOLAZINE 500 MG ER TAB PO SCH (07:49)
[2020-04-06] MEDS: CEROVITE ADV FORMULA TAB PO SCH (07:49)
[2020-04-06] MEDS: FERROUS SULFATE 325 MG TAB PO SCH (07:49)
[2020-04-06] MEDS: FUROSEMIDE 20 MG in SYRINGE 0 ML IV SCH (07:56)
[2020-04-06 13:42] LABS: INR 1.7 (0.9-1.1); Prothrombin Time 17.5 Seconds (9.0-12.0)
--- NOTE | 2020-04-06 16:01 | Discharge Summary ---
Date of Service April 06, 2020 Admission HPI Per Admitting Provider Patient is an 89-year-old female with an extensive past medical history including significant coronary artery disease status post multiple stenting, prior valve replacement, infrarenal abdominal aortic aneurysm, history of PEs anticoagulated on Coumadin, ulcerative colitis status post ileostomy, NSTEMI, CKD, amongst others. Patient reports that she has been having shortness of breath over the last few days. She does have a history of CHF and has noted increasing swelling to the bilateral lower extremities. In addition, patient has been woken up at night secondary to shortness of breath. Over the last few days, she has noticed occasional episodes of chest pain which have responded to nitroglycerin. Today, the chest pain did not latia as usual. This prompted visit to the emergency department today. In the emergency department, the patient was noted to be hypoxic and requiring supplemental oxygen. Chest x-ray demonstrates mild pulmonary edema. COVID-19 testing was negative. No significant electrolyte derangements appreciated. Troponin not elevated, but not completely negligible as well. BNP elevated. She received IV Lasix and nitroglycerin as well as one-time dose of fentanyl. Patient reports complete resolve symptoms at this time. She is resting comfortably with supplemental oxygen in place. She is currently voiding clear vicki urine. Patient currently denies any complaints of chest pain. She reports that her shortness of breath is nearly resolved. She denies any complaints of headaches, dizziness, lightheadedness, palpitations, hemoptysis, nausea, vomiting, fevers, chills, recent illness, recent COVID-19 exposures. Admission Exam Per Admitting Provider VITAL SIGNS - Vital signs and nursing notes were reviewed. GENERAL - 89-year-old female appearing her stated age who is in no acute distress. Communicates well with provider and answers questions appropriately. SKIN - Without rashes. HEAD - NC/AT. EYES - PERRL with EOMI bilaterally. Sclera anicteric. Palpebral conjunctiva pink and moist with no injection noted. EARS - No deformities of external structures noted on gross examination bilate rally. NOSE - Midline and without cyanosis. No epistaxis or purulent drainage noted. MOUTH/OROPHARYNX - Without perioral cyanosis. Buccal mucosa pink and moist and without leukoplakia. NECK - Neck with FROM. Supple to palpation. No nuchal rigidity. LUNGS - Chest wall symmetric without accessory muscle use, intercostals retractions, or central cyanosis. Normal vesicular breath sounds CTA B/L. No wh eezes, rales, or rhonchi appreciated. CARDIAC - RRR with S1/S2. No murmur, rubs, or gallops appreciated. ABDOMEN - Abdominal contour obese without pulsations or visible masses. BS normoactive all four quadrants. No tenderness, palpable masses, hepatosplenomegaly, or ascites noted. Ileostomy site intact. EXTREMITIES - No clubbing or peripheral cyanosis. Moderate pretibial edema bilaterally. +3/5 radial and dorsalis pedis pulses palpated throughout. NEUROLOGIC - Cranial nerves II through XII grossly intact. Sensory intact to light touch throughout. PSYCH - A&Ox3 and cooperates fully with examiner. Pt is very pleasant and interacts well with examiner. Principal Diagnosis heart failure with preserved ejection fraction - exacerbation acute hypoxic respiratory failure Discharge Exam Constitutional Well-appearing 89 year old female who is awake and looking out the window upon my entrance into the room. She is engaged and alert throughout our interaction together, making good eye contact. NAD. Neck No appreciable JVD on examination. Respiratory Good respiratory effort with symmetric expansion of the chest. Lungs are CTAB w/o crackles or wheezes. Cardiovascular NRRR. S1/S2 present without m/r/g. Gastrointestinal (Abdomen) NABS. Abdomen is soft, nontender, and nondistended to palpation. No rebound or guarding. Lymphatic Minimal lower extremity edema in the seated position. Discharge Data Allergies Allergy/AdvReac Type Severity Reaction Status Date / Time bee venom protein (honey bee) Allergy Severe ANAPHYLAXIS Verified 04/03/20 21:26 sodium lauryl sulfate Allergy Intermediate HIVES & Verified 04/03/20 21:26 WELTS Consultations 04/03/20 21:24 ED Decision to Admit Stat 04/04/20 01:53 Consult Cardiology Routine Consult Case Management - Discharge Planning Routine Hospital Course (1) CHF (congestive heart failure): Paige is a very pleasant 89-year-old female with a notable history of [id number] HFpEF, CAD s/p multiple stent placements, chronic stable angina, s/p TAVR in 2019, history of PEs (on Coumadin), a known AAA (7cm -- attempted repair by [facility], unfortunately could not be completed), and trigeminal neuralgia who presented to [facility] on 04/03 for evaluation of progressive dyspnea over the proceeding several weeks, subsequently found to be in an exacerbation of HFpEF. D/C on 04/06. Acute Hypoxic Respiratory Failure - Upon arrival to ED, patient was noted to be hypoxic and requiring supplemental oxygen - Diagnostic evaluation revealing of: - CXR: "congestive failure with interstitial edema", most likely consistent with pulmonary edema - BNP >3000 - COVID-19 negative (RT-PCR) - Troponin trend consistently WNL < 0.045 - Likely due to fblig-yh-gsapaba HFpEF exacerbation. PE was also considered given subtherapeutic INR and intermittent chest pain, but on further history taking, CP seems to be more consistent with chronic angina. - Initially required supplemental O2, but subsequently weaned off with adequate SpO2s after diuresis [id number] HFpEF with Current Exacerbation - Clinically, patient reported several-week history of worsening, generalized shortness of breath alongside PND and orthopnea. BNP elevated >3000 upon admission. - Last echocardiogram in 02/2019 demonstrated: dilated ascending aorta (4.1cm), LVEF 65-70%, and elevated right atrial pressures - Diuresis with Lasix 20mg IV b.i.d. while in hospital - Clinically, patient reported feeling better. Initial O2 requirement, then weened off - Cardiology consulted upon admission and followed - Note: Dry weight at [facility] ~82kg CAD s/p Multiple Stents + Chronic Stable Angina - Patient described intermittent CP at rest (not with exertion) that does seem to be somewhat usual for her - Chronic angina responds well to nitroglycerin: continue to utilize PRN, if needed - Troponin < 0.045 x 2 at arrival - Continue clopidogrel 75mg PO qAM - Continue metoprolol succinate 25mg PO qAM - Heart healthy diet while hospitalized and should continue upon d/c (Na<2g/d, H20<2L/d) History of Pulmonary Emboli - Continue warfarin 6mg PO daily (at 1600hr) - Subtherapeutic INR at ~1.4 - INR Goal: 2-3. Fluctuating INR recently. - Given extra +3mg warfarin while here - Continue following with anticoagulation clinic upon d/c Chronic Medical Problems - CKD Stage II: Noted and followed with BMPs - HTN: Imdur ER 30mg PO qHS,, 60mg PO qAM - HLD: rosuvastatin 20mg PO qHS - GERD: Protonix 40mg PO qAM - Trigeminal Neuralgia: oxcarbazepine 300mg PO q6h yue, gabapentin (2) Hypoxia: (3) Dyspnea: (4) Angina pectoris: (5) Chronic stable angina: (6) Chronic kidney disease, stage II (mild): (7) PE (pulmonary embolism): (8) Hypertension: Total Time Total Time Spent Total Time Spent (In Minutes): see attending attestation Discharge Plan Discharge Items Patient Disposition: Home - Self-Care Reason For Visit: CHF, SOB, LUIS, HYPOXIA Discharge Diagnosis: heart failure exacerbation acute hypoxic respiratory failure Condition on Discharge: Good Activity: Resume your previous activity Non-emergency contact: Primary Care Provider and Field Court Researcher Call non-emergency contact if: you have any medication questions, your symptoms worsen and your pain is concerning for you Follow-up/Referrals: Julius Zamora MD [Primary Care Provider] - Diet: Heart Healthy and Low Sodium (2gm) Addtl Attending Provider Instructions: You were seen at [facility] from 04/03 - 04/06 for evaluation of progressive shortness of breath over the last few weeks. You also mentioned recent chest pain. Upon your arrival and admission, you underwent several tests to evaluate the cause of your symptoms. Based on your laboratory findings, chest X-ray, ECGs (evaluates heart's electrical activity), and physical exams, the leading thought was that you had a heart failure exacerbation. "Heart failure" is a medical term that refers to a state in which the heart's function isn't adequate to pump out fluid/blood; as a result, that blood builds up in areas of body that come before the heart: the lungs, the legs, and sometimes the abdomen. Thankfully, you responded very well to water pills that helped take off some of this extra fluid. As a result, your shortness of breath increased, as did your energy. We further suspect - based on your ECG and labs - that your chest pain was due to your chronic stable angina (chest pain). Upon your discharge, please follow-up with your PCP within 1 week to discuss this visit. You should discuss your medications and how you've felt since discharge. Certainly, if you feel like symptoms are returning -- you're becoming short of breath, extremely fatigued, or begin having new/different/worsening chest pain, please do not hesitate to report to the ER or call 911. These may represent problems that require more immediate evaluation. Upon discharge, please continue taking your medications while prescribed, and continue following along with your anticoagulation clinic as scheduled. - You were kept on Lasix (furosemide) 20mg once daily, by mouth. Please discuss this dose with your doctor and consider developing a plan if similar symptoms (or weight gain) occurs in the future - You should continue taking your home dose of Coumadin unless otherwise indicated by your doctors. You were given a small extra dose while here because your INR was lower than goal-range. - Please hold back from taking your salt tablets until you discuss this visit further with your doctor (you are known to be chronically low on blood sodium, but too much sodium can exacerbate heart failure) Please discuss with your doctor about obtaining the following labs upon discharge: BMP to evaluate electrolytes, INR to evaluate your Coumadin effectiveness. Pending Studies at Discharge: No Stand-Alone Forms: My [facility] [place], Smoking Cessation Medications and DC Order Prescriptions: Continued clopidogrel [Plavix] 75 mg Tablet 75 mg PO QAM RF: 0 pantoprazole [Protonix] 40 mg Tablet,Delayed Release (Dr/Ec) 40 mg PO DAILY RF: 0 nitroglycerin [Nitrostat] 0.4 mg Tablet, Sublingual 0.4 mg Sublingual DIRECTED PRN (Reason: Chest Pain) RF: 0 metoprolol succinate [Toprol XL] 25 mg Tablet Extended Release 24 Hr 25 mg PO QAM RF: 0 epinephrine [EpiPen 2-Percy] 0.3 mg/0.3 mL Auto-Injector 0.3 mg IM DIRECTED PRN (Reason: Allergic Reaction) RF: 0 multivitamin with minerals Tablet 1 tab PO DAILY RF: 0 ranolazine [Ranexa] 500 mg Tablet Extended Release 12 Hr 500 mg PO Q12H RF: 0 rosuvastatin [Crestor] 20 mg tablet 20 mg PO HS RF: 0 ferrous sulfate [FeroSul] 325 mg (65 mg iron) tablet 325 mg PO BID RF: 0 ergocalciferol (vitamin D2) [Drisdol] 1,250 mcg (50,000 unit) capsule 50,000 unit PO MO Qty: 12 RF: 0 oxcarbazepine [Trileptal] 300 mg tablet 300 mg PO QID Qty: 360 RF: 1 gabapentin 300 mg capsule 300 mg PO QID 90 Days Qty: 360 RF: 1 baclofen 10 mg tablet 10 mg PO TID PRN (Reason: Muscle Spasm/face pain) Qty: 90 RF: 1 tramadol 50 mg Tablet 50 - 100 mg PO BID PRN (Reason: Pain) RF: 0 magnesium oxide 400 mg (241.3 mg magnesium) Tablet 400 mg PO HS Qty: 30 RF: 0 furosemide [Lasix] 20 mg tablet 20 mg PO BID RF: 0 isosorbide mononitrate 60 mg Tablet Extended Release 24 Hr 60 mg PO QAM Qty: 30 RF: 0 acetaminophen [Tylenol Extra Strength] 500 mg Tablet 500 mg PO Q6H PRN (Reason: Pain) RF: 0 isosorbide mononitrate 30 mg tablet extended release 24 hr 30 mg PO HS RF: 0 warfarin 6 mg tablet 6 mg PO .7XW RF: 0 Discontinued sodium chloride 1 gram Tablet 1 g PO QAM RF: 0 Discharge Orders: Discharge Order (Routine); Ordered 04/06/20 Ordered By: Stevan Grigsby Admission Data Admit Date/Time: 04/03/20 23:38 Attending Provider: Mali Webster Admit Provider: Val Rowell Primary Care Provider: Julius Zamora Other Providers: Rafael Clark ; [facility] Other Interventions: Discharge Summary Assessment (RN) Last Done: 04/06/20 16:09 Supervising Physician Co-Signing Physician Notes Resident Physician Supervision Note: I independently interviewed and examined the patient and verified the arias history and physical, reviewed labs and image studies, discussed the case with the resident Dr. Grigsby and agree with the findings and care plan. Resident Activity Tracking Resident Involvement: Resident Care Provided Care Provided: Adult Hospital Medicine
--- NOTE | 2020-04-10 06:19 | Coding Query ---
CODING QUERY To promote full compliance with coding requirements relating to patient care, provider participation is requested in all cases of tie tape machine operator uncertainty. Please assist us with the question(s) below: Coding Question(s): Acute on Chronic HFpEF w/ Current Exacerbation is documented in progress notes and discharge. Please clarify type of HF below. (x ) Acute on Chronic Diastolic HF ( ) Acute on Chronic Systolic HF ( ) Acute on Chronic Combined Systolic and Diastolic HF ( ) Other Please Explain: Thank you Chris Cuenca Principal Diagnosis: "that condition established after study, to be chiefly responsible for occasioning the admission of the patient to the hospital for care." Co-Existing Principal Diagnosis: "when two or more diagnoses equally meet the criteria for principal diagnosis as determined by the circumstances of admission, diagnostic work up, and/or therapy provided, and the Alphabetic Index, Tabular List, or another coding guideline does not provide sequencing direction, any one of the diagnoses may be sequenced first." "When the physician has documented what appears to be a current diagnosis in the body of the record, but has not included the diagnosis in the final diagnostic statement, the physician should be asked whether the diagnosis should be added." (Source Coding [facility] 2 QTR90. p3-4) [place]
[2020-04-23] MEDS ORDERED: ERGOCALCIFEROL 50,000 UNITS 1250 MCG CAP PO SCH (09:00)
== END 2020-04-06 17:05 | disposition home or self-care (01) ==
LOC: ED 19:06 → INTOOBSV 23:38 → SUATTDRO 23:38 → 1E 23:38

== ENCOUNTER 2020-09-22 19:36 | Inpatient (IN) ==
[2020-09-22] MEDS ORDERED: ASPIRIN CHEW 324 MG PO STA (19:55)
--- NOTE | 2020-09-22 19:55 | Emergency Department Note ---
Impression & Plan Chest pain, Hypoxia, Wide-complex tachycardia ED Provider Note NAME: LEONARD NAYAK AGE: 89 SEX: F : 1930 ARRIVES VIA: Walk-In INFORMANT: Patient ED PROVIDER(S): Stevan Winston DO CHIEF COMPLAINT: Chest pain and Shortness of breath HPI: Patient is an 89-year-old female who presents the ER for chest pain shortness of breath. This started an hour ago. She has an extensive cardiac history including MIs, CAD, TAVR, CHF and PE. She is on Plavix and Coumadin. She notes the pain is in the middle of her chest. She admits to shortness of breath. No arm or jaw pain. Pain feels like a pressure. Pain started about an hour prior to arrival. She also has pain in her ear which consistent with her previous SC. She does have an ICD [employer] ROS: See above HPI for pertinent positives & negatives. A total of 10 systems reviewed and were otherwise negative. PAST MEDICAL HISTORY:See Below PAST SURGICAL HISTORY:See Below FAMILY HISTORY:See Below SOCIAL HISTORY:See Below HOME MEDICATIONS:See Below ALLERGIES:See Below VITALS:See Below PHYSICAL EXAMINATION: GENERAL: Sitting up in bed, alert, chronically ill-appearing, disheveled EYE EXAM: normal conjunctiva. PERRL and EOM's grossly intact. OROPHARYNX: no exudate, no erythema, lips, buccal mucosa, and tongue normal and mucous membranes are moist NECK: supple, no nuchal rigidity, no adenopathy, non-tender LUNGS: Clear to auscultation. Normal chest wall mechanics HEART: no murmurs, S1 normal and S2 normal ABDOMEN: abdomen soft, non-tender, normo-active bowel sounds, no masses, no rebound or guarding. UPPER EXTREMITIES: upper extremities are grossly normal. LOWER EXTREMITIES: Edema in the bilateral lower extremities. Calves are equal bilateral NEURO EXAM: Normal sensorium, cranial nerves II-XII grossly intact, normal speech, no gross weakness of arms, no gross weakness of legs. MEDICAL DECISION MAKING: Patient is an 89-year-old female with extensive past medical history the presents the ER for chest pain and shortness of breath. Upon arrival she was found to be slightly hypoxic and hypertensive. She placed on nasal cannula. She was given Nitropaste and chest pain has resolved and her shortness of breath resolved as well. Chest x-ray shows mild vascular congestion. Labs show no significant leukocytosis or anemia. INR was slightly subtherapeutic at 1.7. BMP with LFTs bilirubin were unremarkable. Troponin was detectable at 0.025. Lipase was unremarkable. Intermittently in the ER she had 3-4 separate runs of wide-complex tachycardia. Unable to interrogate pacer emergently due to the [employer]. They were called. Patient was placed on amnio bolus and placed on a drip. Discussed with the hospitalist for further evaluation. Did contact [employer] and spoke with the rep. Requested that she come to interrogate the pacemaker. She felt uncomfortable driving 3 hours up and 3 hours back home at this time of night. She will have to come in the morning. Triage Nursing notes reviewed. Limited review of prior medical records performed Vital Signs: reviewed and remarkable for hypoxic Differential diagnosis: Differential diagnoses includes but is not limited to acute coronary syndrome, myocardial infarction, pericarditis, pulmonary embolus, aortic dissection, pneumonia, pneumothorax, musculoskeletal, shingles, esophageal. ER treatment provided: See below Diagnostics interpreted by me: ECG: Ventricularly paced rate of 79 Left axis Left bundle branch block PVC present Cardiac Monitoring: An order was placed for continuous cardiac monitoring. The monitor shows a rate of 78 with sinus rhythm. Laboratory studies: As stated above and show below. Imaging studies: Portable AP upright 1 view of the chest shows likely left lower pleural effusion with vascular congestion pacer in place Consultation(s): Discussed with hospitalist for further evaluation Procedures: none Critical Care: I have personally spent 35 minutes of critical care time in the direct management of this patient. This includes bedside care, interpretation of diagnostic studies, and testing, discussion with consultants, patient, and family members, and other required patient management activities. This 35 minutes is in excess of all separately billable procedures. Past Med/Surg History Medical History (Updated 09/22/20 @ 21:42 by Stevan Winston DO) Aortic aneurysm Breast cancer Chronic kidney disease, stage II (mild) FH: total knee replacement HTN (hypertension) Hypertensive emergency Hyponatremia Ileostomy in place Pulmonary embolism Trigeminal neuralgia Vitamin D deficiency Surgical History H/O cardiac catheterization H/O total colectomy H/O: hysterectomy S/P breast lumpectomy S/P shoulder surgery Family History Mother Cancer Acute myocardial infarction Uterine cancer Hypertension Father Cancer Prostate cancer Social History Smoking Status: Never smoker Second Hand Exposure: No; Hx Alcohol Use: No Hx Substance Use: No Preferred Language: Czech Communication Ability: Effective Training Officer Required: No Beliefs That Will Affect Care: None Current Living Situation: Family Current Living Situation Comment: Grand son lives with patie Feels Safe at Home: Yes Assistive Devices: None Allergies Allergies Allergy/AdvReac Type Severity Reaction Status Date / Time bee venom protein (honey bee) Allergy Severe ANAPHYLAXIS Verified 09/22/20 21:06 sodium lauryl sulfate Allergy Intermediate HIVES & Verified 09/22/20 21:06 WELTS Home Meds Home Medications Medication Instructions Recorded Confirmed clopidogrel [Plavix] 75 mg PO QAM 01/16/18 09/22/20 epinephrine [EpiPen 2-Percy] 0.3 mg IM DIRECTED PRN 01/16/18 09/22/20 metoprolol succinate [Toprol XL] 25 mg PO QAM 01/16/18 09/22/20 multivitamin with minerals 1 tab PO QAM 01/16/18 09/22/20 nitroglycerin [Nitrostat] 0.4 mg SUBLINGUAL DIRECTED PRN 01/16/18 09/22/20 pantoprazole [Protonix] 40 mg PO QAM 01/16/18 09/22/20 ranolazine [Ranexa] 500 mg PO Q12H 01/16/18 09/22/20 acetaminophen [Tylenol Extra 500 mg PO Q6H PRN 07/01/19 09/22/20 Strength] isosorbide mononitrate 30 mg PO HS 07/01/19 09/22/20 furosemide 20 mg tablet 20 mg PO BID tab 07/28/19 09/22/20 ferrous sulfate 325 mg (65 mg 325 mg PO BID 10/19/19 09/22/20 iron) tablet spironolactone 25 mg tablet 12.5 mg PO HS tab 04/11/20 09/22/20 warfarin 6 mg tablet 6 mg PO DAILY tab 08/04/20 09/22/20 amlodipine 5 mg PO DAILY 09/22/20 09/22/20 potassium chloride 20 meq PO BID 09/22/20 09/22/20 Previous Rx's Medication Instructions Recorded magnesium oxide 400 mg PO HS #30 tab 07/31/18 isosorbide mononitrate 60 mg PO QAM #30 tab 02/28/19 baclofen 10 mg tablet 10 mg PO TID PRN #90 tab 10/22/19 ergocalciferol (vitamin D2) 1,250 50,000 unit PO MO #12 cap 12/17/19 mcg (50,000 unit) capsule oxcarbazepine 300 mg tablet 300 mg PO QID #360 tab 06/15/20 gabapentin 300 mg capsule 300 mg PO QID 90 Days #360 cap 07/05/20 Results & Data (ED) Vital Signs Vital Signs - 24 hr 09/22/20 19:38 09/22/20 19:48 09/22/20 20:00 Temperature 37.5 C Temperature Source Temporal Artery Scan Pulse Rate 64 72 60 Pulse Rate from SpO2 Sensor 72 60 Pulse Rhythm Regular Pulse Strength Normal Respiratory Rate 20 22 25 H Respiratory Effort / Characteristics Labored Short of Breath Respiratory Depth Shallow Blood Pressure 169/84 H Blood Pressure Mean 112 Blood Pressure Position Sitting Pulse Oximetry 88 L 92 95 Oxygen Delivery Method Room Air Nasal Cannula Oxygen Flow Rate 3 Sepsis Recent Fever Within 48 Hours No Sepsis New/Unexplained Change in Mental Status N/A Sepsis Action Taken by Nursing No Action Required 09/22/20 20:15 09/22/20 20:30 09/22/20 20:45 Temperature Temperature Source Pulse Rate 72 60 Pulse Rate from SpO2 Sensor 67 71 61 Pulse Rhythm Pulse Strength Respiratory Rate 25 H 19 23 Respiratory Effort / Characteristics Respiratory Depth Blood Pressure Blood Pressure Mean Blood Pressure Position Pulse Oximetry 93 96 95 Oxygen Delivery Method Oxygen Flow Rate Sepsis Recent Fever Within 48 Hours Sepsis New/Unexplained Change in Mental Status Sepsis Action Taken by Nursing 09/22/20 21:00 09/22/20 21:07 09/22/20 21:08 Temperature Temperature Source Pulse Rate 72 62 61 Pulse Rate from SpO2 Sensor 62 61 Pulse Rhythm Pulse Strength Respiratory Rate 13 17 20 Respiratory Effort / Characteristics Respiratory Depth Blood Pressure 110/55 L Blood Pressure Mean 73 Blood Pressure Position Pulse Oximetry 97 96 Oxygen Delivery Method Oxygen Flow Rate Sepsis Recent Fever Within 48 Hours Sepsis New/Unexplained Change in Mental Status Sepsis Action Taken by Nursing 09/22/20 21:30 09/22/20 21:31 09/22/20 21:39 Temperature Temperature Source Pulse Rate 63 64 66 Pulse Rate from SpO2 Sensor 63 64 66 Pulse Rhythm Pulse Strength Respiratory Rate 20 22 15 Respiratory Effort / Characteristics Respiratory Depth Blood Pressure 130/70 117/66 Blood Pressure Mean 90 83 Blood Pressure Position Pulse Oximetry 96 96 96 Oxygen Delivery Method Oxygen Flow Rate Sepsis Recent Fever Within 48 Hours Sepsis New/Unexplained Change in Mental Status Sepsis Action Taken by Nursing 09/22/20 21:40 09/22/20 21:45 09/22/20 21:50 Temperature Temperature Source Pulse Rate 66 64 61 Pulse Rate from SpO2 Sensor 66 64 61 Pulse Rhythm Pulse Strength Respiratory Rate 16 15 16 Respiratory Effort / Characteristics Respiratory Depth Blood Pressure 117/72 125/65 114/57 L Blood Pressure Mean 87 85 76 Blood Pressure Position Pulse Oximetry 95 95 96 Oxygen Delivery Method Oxygen Flow Rate Sepsis Recent Fever Within 48 Hours Sepsis New/Unexplained Change in Mental Status Sepsis Action Taken by Nursing 09/22/20 21:55 09/22/20 22:00 09/22/20 22:05 Temperature Temperature Source Pulse Rate 61 60 63 Pulse Rate from SpO2 Sensor 61 60 63 Pulse Rhythm Pulse Strength Respiratory Rate 19 14 20 Respiratory Effort / Characteristics Respiratory Depth Blood Pressure 121/66 136/72 127/71 Blood Pressure Mean 84 93 89 Blood Pressure Position Pulse Oximetry 96 96 95 Oxygen Delivery Method Oxygen Flow Rate Sepsis Recent Fever Within 48 Hours Sepsis New/Unexplained Change in Mental Status Sepsis Action Taken by Nursing 09/22/20 22:10 09/22/20 22:15 09/22/20 22:20 Temperature Temperature Source Pulse Rate 61 60 60 Pulse Rate from SpO2 Sensor 61 60 60 Pulse Rhythm Pulse Strength Respiratory Rate 22 20 24 Respiratory Effort / Characteristics Respiratory Depth Blood Pressure 121/74 121/64 135/71 Blood Pressure Mean 89 83 92 Blood Pressure Position Pulse Oximetry 95 97 96 Oxygen Delivery Method Oxygen Flow Rate Sepsis Recent Fever Within 48 Hours Sepsis New/Unexplained Change in Mental Status Sepsis Action Taken by Nursing Laboratory Data Result diagrams: 09/22/20 20:00 09/22/20 20:59 Lab Results 09/22/20 09/22/20 09/22/20 Range/Units 20:00 20:00 20:05 WBC 7.20 (4.8-10.8) K/uL RBC 4.43 (4.2-5.4) M/uL Hgb 13.5 (12.0-16.0) g/dL Hct 40.6 (37-47) % MCV 91.6 (80-100) fL MCH 30.5 (25-34) pg MCHC 33.3 (32-36) g/dL RDW Std Deviation 46.2 (36.4-46.3) fL RDW Coeff of Boy 13.7 (11.5-14.5) % Plt Count 157 (130-400) K/uL MPV 10.7 H (7.4-10.4) fL Immature Gran % (Auto) 0.1 % Neut % (Auto) 63.0 % Lymph % (Auto) 22.1 % [place] % (Auto) 11.9 % Eos % (Auto) 2.6 % Baso % (Auto) 0.3 % Neut # (Auto) 4.53 (1.4-6.5) K/uL Lymph # (Auto) 1.59 (1.2-3.4) K/uL [place] # (Auto) 0.86 H (0.11-0.59) K/uL Eos # (Auto) 0.19 (0-0.5) K/uL Baso # (Auto) 0.02 (0-0.2) K/uL Immature Gran # (Auto) 0.01 (0.00-0.02) K/uL PT (9.0-12.0) Seconds INR (0.9-1.1) APTT (21.0-31.0) Seconds PTT Ratio Sodium 138 (136-145) mmol/L Potassium (3.5-5.1) mmol/L Chloride 107 (98-107) mmol/L Carbon Dioxide 23 (21-32) mmol/L Anion Gap 8.0 (3-11) BUN 25 H (7-18) mg/dl Creatinine 1.03 (0.6-1.2) mg/dl Est Cr Clr Drug Dosing Not Reportable Est GFR ( Amer) 56.2 ml/min Est GFR (Non-Af Amer) 48.5 ml/min BUN/Creatinine Ratio 23.8 H (10-20) Glucose 127 H (70-99) mg/dl Calcium 9.8 (8.5-10.1) mg/dl Phosphorus (2.5-4.9) mg/dl Magnesium (1.8-2.4) mg/dl Total Bilirubin 0.5 (0.2-1) mg/dl AST (15-37) U/L ALT 22 (12-78) U/L Alkaline Phosphatase 139 H (45-117) U/L Troponin I 0.025 (0-0.045) ng/ml NT-Pro-B Natriuret Pep (0-1800) pg/ml Total Protein 7.8 (6.4-8.2) gm/dl Albumin 3.5 (3.4-5.0) gm/dl Globulin 4.3 H (2.5-4.0) gm/dl Albumin/Globulin Ratio 0.8 L (0.9-2) Lipase 113 (73-393) U/L COVID-19 Eval Order Covid19 at [facility] SARS-CoV-2 (PCR) (Negative) 09/22/20 09/22/20 09/22/20 Range/Units 20:05 20:21 20:21 WBC (4.8-10.8) K/uL RBC (4.2-5.4) M/uL Hgb (12.0-16.0) g/dL Hct (37-47) % MCV (80-100) fL MCH (25-34) pg MCHC (32-36) g/dL RDW Std Deviation (36.4-46.3) fL RDW Coeff of Boy (11.5-14.5) % Plt Count (130-400) K/uL MPV (7.4-10.4) fL Immature Gran % (Auto) % Neut % (Auto) % Lymph % (Auto) % [place] % (Auto) % Eos % (Auto) % Baso % (Auto) % Neut # (Auto) (1.4-6.5) K/uL Lymph # (Auto) (1.2-3.4) K/uL [place] # (Auto) (0.11-0.59) K/uL Eos # (Auto) (0-0.5) K/uL Baso # (Auto) (0-0.2) K/uL Immature Gran # (Auto) (0.00-0.02) K/uL PT 16.2 H (9.0-12.0) Seconds INR 1.7 H (0.9-1.1) APTT 31.0 (21.0-31.0) Seconds PTT Ratio 1.2 Sodium (136-145) mmol/L Potassium (3.5-5.1) mmol/L Chloride (98-107) mmol/L Carbon Dioxide (21-32) mmol/L Anion Gap (3-11) BUN (7-18) mg/dl Creatinine (0.6-1.2) mg/dl Est Cr Clr Drug Dosing Est GFR ( Amer) ml/min Est GFR (Non-Af Amer) ml/min BUN/Creatinine Ratio (10-20) Glucose (70-99) mg/dl Calcium (8.5-10.1) mg/dl Phosphorus (2.5-4.9) mg/dl Magnesium (1.8-2.4) mg/dl Total Bilirubin (0.2-1) mg/dl AST (15-37) U/L ALT (12-78) U/L Alkaline Phosphatase (45-117) U/L Troponin I (0-0.045) ng/ml NT-Pro-B Natriuret Pep (0-1800) pg/ml Total Protein (6.4-8.2) gm/dl Albumin (3.4-5.0) gm/dl Globulin (2.5-4.0) gm/dl Albumin/Globulin Ratio (0.9-2) Lipase (73-393) U/L COVID-19 Eval Order SARS-CoV-2 (PCR) NEGATIVE (Negative) 09/22/20 09/22/20 Range/Units 20:59 20:59 WBC (4.8-10.8) K/uL RBC (4.2-5.4) M/uL Hgb (12.0-16.0) g/dL Hct (37-47) % MCV (80-100) fL MCH (25-34) pg MCHC (32-36) g/dL RDW Std Deviation (36.4-46.3) fL RDW Coeff of Boy (11.5-14.5) % Plt Count (130-400) K/uL MPV (7.4-10.4) fL Immature Gran % (Auto) % Neut % (Auto) % Lymph % (Auto) % [place] % (Auto) % Eos % (Auto) % Baso % (Auto) % Neut # (Auto) (1.4-6.5) K/uL Lymph # (Auto) (1.2-3.4) K/uL [place] # (Auto) (0.11-0.59) K/uL Eos # (Auto) (0-0.5) K/uL Baso # (Auto) (0-0.2) K/uL Immature Gran # (Auto) (0.00-0.02) K/uL PT (9.0-12.0) Seconds INR (0.9-1.1) APTT (21.0-31.0) Seconds PTT Ratio Sodium (136-145) mmol/L Potassium 4.2 (3.5-5.1) mmol/L Chloride (98-107) mmol/L Carbon Dioxide (21-32) mmol/L Anion Gap (3-11) BUN (7-18) mg/dl Creatinine (0.6-1.2) mg/dl Est Cr Clr Drug Dosing Est GFR ( Amer) ml/min Est GFR (Non-Af Amer) ml/min BUN/Creatinine Ratio (10-20) Glucose (70-99) mg/dl Calcium (8.5-10.1) mg/dl Phosphorus 2.5 (2.5-4.9) mg/dl Magnesium 2.0 (1.8-2.4) mg/dl Total Bilirubin (0.2-1) mg/dl AST 22 (15-37) U/L ALT (12-78) U/L Alkaline Phosphatase (45-117) U/L Troponin I (0-0.045) ng/ml NT-Pro-B Natriuret Pep 4790 H (0-1800) pg/ml Total Protein (6.4-8.2) gm/dl Albumin (3.4-5.0) gm/dl Globulin (2.5-4.0) gm/dl Albumin/Globulin Ratio (0.9-2) Lipase (73-393) U/L COVID-19 Eval Order SARS-CoV-2 (PCR) (Negative) Administered Medications Amiodarone HCl/Dextrose (Nexterone / D5w) 360 mg in 200 mls @ 33.333 mls/hr IV ONE ONE Stop: 09/23/20 03:27 Last Admin: 09/22/20 21:51 Dose: 33.3 mls/hr Documented by: [id number] Cosigned by: [id number] Nitroglycerin (Nitroglycerin 2% Ointment 30gm Tube) 2 inch EXT Q6H PRAMOD Stop: 10/22/20 19:59 Last Admin: 09/22/20 20:16 Dose: 2 inch Documented by: [id number] Discontinued Medications Amiodarone HCl (Amiodarone Iv Bolus & Drip) 1 ea IV NOW STA; Protocol Stop: 09/22/20 21:29 Last Admin: 09/22/20 21:53 Dose: 1 ea Documented by: [id number] Aspirin (Aspirin Chew 324 Mg) 324 mg PO NOW STA Stop: 09/22/20 19:56 Last Admin: 09/22/20 20:16 Dose: 324 mg Documented by: [id number] Amiodarone HCl/Dextrose (Nexterone / D5w) 150 mg in 100 mls @ 600 mls/hr IV NOW STA Stop: 09/22/20 21:37 Last Infusion: 09/22/20 21:53 Dose: 0 mls/hr Documented by: [id number] Cosigned by: [id number] Admin: 09/22/20 21:40 Dose: 600 mls/hr Documented by: [id number] Cosigned by: [id number] Miscellaneous (Stat Iv Infusion Titration Per Protocol) 1 ea N/A NOW STA Stop: 09/22/20 21:29 Last Admin: 09/22/20 21:53 Dose: 1 ea Documented by: [id number] Imaging Data Radiologist's Impression: Chest X-Ray 09/22/20 19:43 XR chest 1V portable CLINICAL HISTORY: Chest Pain COMPARISON STUDY: April 03, 2020 FINDINGS: No definite pneumothorax seen however evaluation is limited because bilateral l omi apices are obscured by patient's chin.. Moderate left pleural effusion is seen associated with atelectasis/infiltrate at the left base. Diffuse reticular nodular prominence of pulmonary interstitium is not significantly changed since prior study likely representing pulmonary edema. Cardiomediastinal silhouette is enlarged and stable since prior. Aorta is tortuous. Stable position of right-sided dual-lead pacemaker with battery pack partially obscuring the right lung parenchyma.. Osseous structures: Osteopenia. 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 Possible degenerative changes of the spine however vertebral bodies are poorly seen. IMPRESSION: 1. CHF pattern with cardiomegaly and stable left pleural effusion. Pulmonary edema. 2. Unchanged atelectasis/infiltrate at the left base. ACT 112: Negative or not required by law. The above report was generated using voice recognition software. It may contain grammatical, syntax or spelling errors. Electronically signed by: Gaby Mtz DO 09/22/2020 9:46 PM Discharge Plan Visit Data Chief Complaint: Chest Pain Stated Complaint: CHEST PAIN, SOB ED Provider: Stevan Winston Discharge Problem: Chest pain, Hypoxia, Wide-complex tachycardia Forms Stand Alone Forms: [facility] Prescriptions Prescriptions: No Action clopidogrel [Plavix] 75 mg Tablet 75 mg PO QAM RF: 0 pantoprazole [Protonix] 40 mg Tablet,Delayed Release (Dr/Ec) 40 mg PO QAM RF: 0 nitroglycerin [Nitrostat] 0.4 mg Tablet, Sublingual 0.4 mg Sublingual DIRECTED PRN (Reason: Chest Pain) RF: 0 metoprolol succinate [Toprol XL] 25 mg Tablet Extended Release 24 Hr 25 mg PO QAM RF: 0 epinephrine [EpiPen 2-Percy] 0.3 mg/0.3 mL Auto-Injector 0.3 mg IM DIRECTED PRN (Reason: Allergic Reaction) RF: 0 multivitamin with minerals Tablet 1 tab PO QAM RF: 0 ranolazine [Ranexa] 500 mg Tablet Extended Release 12 Hr 500 mg PO Q12H RF: 0 warfarin 6 mg tablet 6 mg PO DAILY RF: 0 ferrous sulfate [FeroSul] 325 mg (65 mg iron) tablet 325 mg PO BID RF: 0 spironolactone [Aldactone] 25 mg tablet 12.5 mg PO HS RF: 0 ergocalciferol (vitamin D2) [Drisdol] 1,250 mcg (50,000 unit) capsule 50,000 unit PO MO Qty: 12 RF: 0 oxcarbazepine [Trileptal] 300 mg tablet 300 mg PO QID Qty: 360 RF: 1 gabapentin 300 mg capsule 300 mg PO QID 90 Days Qty: 360 RF: 1 baclofen 10 mg tablet 10 mg PO TID PRN (Reason: Muscle Spasm/face pain) Qty: 90 RF: 1 magnesium oxide 400 mg (241.3 mg magnesium) Tablet 400 mg PO HS Qty: 30 RF: 0 furosemide [Lasix] 20 mg tablet 20 mg PO BID RF: 0 isosorbide mononitrate 60 mg Tablet Extended Release 24 Hr 60 mg PO QAM Qty: 30 RF: 0 acetaminophen [Tylenol Extra Strength] 500 mg Tablet 500 mg PO Q6H PRN (Reason: Pain) RF: 0 isosorbide mononitrate 30 mg tablet extended release 24 hr 30 mg PO HS RF: 0 amlodipine 5 mg tablet 5 mg PO DAILY RF: 0 potassium chloride 20 mEq tablet,ER particles/crystals 20 meq PO BID RF: 0 Discharge Problem: Chest pain Qualifiers: Chest pain type: unspecified Qualified Code(s): R07.9 - Chest pain, unspecified
[2020-09-22 20:15] LABS: Basophils # (auto) 0.02 K/uL (0-0.2); Basophils % (auto) 0.3 %; Eosinophils # (auto) 0.19 K/uL (0-0.5); Eosinophils % (auto) 2.6 %; Hematocrit (blood only) 40.6 % (37-47); Hemoglobin 13.5 g/dL (12.0-16.0); Immature Granulocytes # (auto) 0.01 K/uL (0.00-0.02); Immature Granulocytes % (auto) 0.1 %; Lymphocytes # (auto) 1.59 K/uL (1.2-3.4); Lymphocytes % (auto) 22.1 %; Mean Corpuscular Hemoglobin 30.5 pg (25-34); Mean Corpuscular Hgb Conc 33.3 g/dL (32-36); Mean Corpuscular Volume 91.6 fL (80-100); Mean Platelet Volume 10.7 fL (7.4-10.4); Monocytes # (auto) 0.86 K/uL (0.11-0.59); Monocytes % (auto) 11.9 %; Neutrophils # (auto) 4.53 K/uL (1.4-6.5); Platelet Count 157 K/uL (130-400); RDW Coefficient of Variation 13.7 % (11.5-14.5); RDW Standard Deviation 46.2 fL (36.4-46.3); Red Blood Count 4.43 M/uL (4.2-5.4)
[2020-09-22] MEDS: NITROGLYCERIN 2% OINTMENT 30GM TUBE EXT SCH (20:16)
[2020-09-22 20:45] LABS: Partial Thromboplastin Ratio 1.2
[2020-09-22 20:46] LABS: Alanine Aminotransferase 22 U/L (12-78); Albumin Level 3.5 gm/dl (3.4-5.0); BUN Creatinine Ratio 23.8 (10-20); Blood Urea Nitrogen 25 mg/dl (7-18); Calcium 9.8 mg/dl (8.5-10.1); Carbon Dioxide 23 mmol/L (21-32); Chloride 107 mmol/L (98-107); Est GFR (African American) 56.2 ml/min; Est GFR (Non-African American) 48.5 ml/min; Glucose 127 mg/dl (70-99); Lipase 113 U/L (73-393); Sodium 138 mmol/L (136-145)
[2020-09-22 20:47] LABS: Albumin Globulin Ratio 0.8 (0.9-2); Alkaline Phosphatase 139 U/L (45-117); Bilirubin,Total 0.5 mg/dl (0.2-1); Globulin 4.3 gm/dl (2.5-4.0); Total Protein 7.8 gm/dl (6.4-8.2); Troponin I 0.025 ng/ml (0-0.045)
[2020-09-22 21:19] LABS: Potassium 4.2 mmol/L (3.5-5.1)
[2020-09-22 21:25] LABS: INR 1.7 (0.9-1.1); Prothrombin Time 16.2 Seconds (9.0-12.0)
[2020-09-22] MEDS ORDERED: AMIODARONE / D5W 150 MG/100 ML BAG IV STA (21:28)
[2020-09-22] MEDS ORDERED: AMIODARONE IV BOLUS & DRIP IV STA (21:28)
[2020-09-22] MEDS ORDERED: STAT IV Infusion **Titration per Protocol STA (21:28)
[2020-09-22] MEDS ORDERED: AMIODARONE / D5W 360 MG/200 ML BAG IV ONE (21:28)
[2020-09-22] MEDS ORDERED: 0.2 MICRON FILTER SET 1 EA IV ONE (21:28)
--- NOTE | 2020-09-22 21:48 | XRay Report ---
XR chest 1V portable CLINICAL HISTORY: Chest Pain COMPARISON STUDY: April 03, 2020 FINDINGS: No definite pneumothorax seen however evaluation is limited because bilateral lung apices are obscure d by patient's chin.. Moderate left pleural effusion is seen associated with atelectasis/infiltrate at the left base. Diffuse reticular nodular prominence of pulmonary interstitium is not significantly changed since ashley or study likely representing pulmonary edema. Cardiomediastinal silhouette is enlarged and stable since prior. Aorta is tortuous. Stable position of right-sided dual-lead pacemaker with battery pack partially obscuring the right ortega ng parenchyma.. Osseous structures: Osteopenia. 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 Possible degenerativ e changes of the spine however vertebral bodies are poorly seen. IMPRESSION: 1. CHF pattern with cardiomegaly and stable left pleural effusion. Pulmonary edema. 2. Unchanged atelectasis/infiltrate at the left base. ACT 112: Negative or not required by law. The above report was generated using voice recognition software. It may contain grammatical, syntax o r spelling errors. Electronically signed by: Gaby Mtz DO 09/22/2020 9:46 PM
[2020-09-22 22:23] LABS: Phosphorus 2.5 mg/dl (2.5-4.9)
[2020-09-22] MEDS ORDERED: FUROSEMIDE 40 MG/4 ML VIAL IV STA (22:38)
--- NOTE | 2020-09-22 22:40 | History & Physical Report ---
Date of Service September 22, 2020 Assessment & Plan (1) CHF (congestive heart failure): Ms. Ely is a 89-year-old female with PMH significant for [id number] heart failure with preserved ejection fraction, coronary artery disease s/p multiple stent placements, aortic stenosis s/p TAVR in 2018, history of PEs (on Coumadin), and a known AAA; who presented to the ED for evaluation of progressive dyspnea throughout the day today that was not alleviated through her typical methods. Sfkfo-ve-[id number] heart failure: -Patient self endorses that she had been more lax with her sodium intake monitoring over the last couple days to week -CXR demonstrating cardiomegaly with CHF pattern and stable left pleural effusion with some signs of pulmonary edema -BNP elevated on admission to 4790 -Repeat echo ordered given last echo done in February 2019 demonstrating EF of 60 to 65% -Given additional 40 mg IV Lasix in ED -Continue p.o. Lasix 20 mg twice daily Wide-complex tachycardia: -On ED telemetry demonstrated a couple to be run of wide complex tachycardia intermittently -EKG demonstrated dual paced rhythm consistent with pacer, notable prolonged AV conduction with frequent current ventricularly paced complexes and occasional premature ventricular complexes -[facility] contacted for interrogation of pacer -In ED initiated on amiodarone drip with resolution of aberrant rhythm -Continue amiodarone at this time -Awaiting interpretation/interrogation of pacer -Cardiology consulted given complexity of CHF and wide-complex tachycardia in the setting of dual-chamber pacer CAD s/p Multiple Stents + Chronic Stable Angina: -Troponin 0.025 on admission -Continue clopidogrel 75mg PO qAM -Continue metoprolol succinate 25mg PO qAM -Nitro-Bid every 6 scheduled History of Pulmonary Emboli: -INR Goal: 2-3. -Continue warfarin 6mg PO daily (at 1600hr) -INR 1.7 today -Continue to monitor daily CKD Stage II: -Creatinine 1.03 on admission, appears at baseline -GFR of 48.5 on admission -Continue to follow while being more aggressive with diuresis given CHF exacerbation HTN: -Continue Imdur ER 30mg PO qHS, 60mg PO qAM Trigeminal Neuralgia: -Continue oxcarbazepine 300mg PO, and gabapentin 300 mg q6h Diet: Heart healthy, low-sodium Code: Conditional code (no intubation or mechanical ventilation) DVT prophylaxis: Continue warfarin (2) CAD (coronary artery disease): (3) Trigeminal neuralgia: (4) PE (pulmonary embolism): (5) Chronic kidney disease, stage II (mild): (6) Hypertension: (7) Hyperlipidemia: History of Present Illness Primary Care Provider: Julius Zamora MD Ms. Ely is a 89-year-old female with PMH significant for jgjrs-ej-[id number] heart failure with preserved ejection fraction, coronary artery disease s/p multiple stent placements, aortic stenosis s/p TAVR in 2019, history of PEs (on Coumadin), and a known AAA; who presented to the ED for evaluation of progressive dyspnea throughout the day today that was not alleviated through her typical methods. Admits that over the last several days to weeks she has been a little bit more lax with monitoring her sodium intake through the consumption of foods like ice cream. Typically tends to do a really good job of monitoring her sodium intake as her family prepares meals for her and tends to cook from scratch entirely and will part of her portions of food prior to any sodium being added to the dishes. Earlier today when she woke up she noticed that she was feeling more of a heaviness across her chest with some feeling of difficulty of catching her breath, but no pain at that time. Upon discussion with her family she did not want to go to the the hospital for further evaluation at that moment time but decided if this continued throughout the day that she would. Later in the day after this had seemingly continued she ultimately acquiesced to her family's desires to have her evaluated further. She trialed sitting down throughout the day and sitting more upright with no relative improvement in her shortness of breath. Did note that her legs were more swollen over the last couple days than they normally would be, however I have not been more tender than otherwise normal for her. Throughout the day today she denies chest pain, palpitations, coughing, nausea, vomiting, or abdominal pain. Endorses chest heaviness, peripheral edema, dyspnea on exertion and with laying flat. Allergies Allergy/AdvReac Type Severity Reaction Status Date / Time bee venom protein (honey bee) Allergy Severe ANAPHYLAXIS Verified 09/22/20 21:06 sodium lauryl sulfate Allergy Intermediate HIVES & Verified 09/22/20 21:06 WEL Home Medications Medication Instructions Recorded Confirmed Type clopidogrel [Plavix] 75 mg PO QAM 01/16/18 09/22/20 History epinephrine [EpiPen 2-Percy] 0.3 mg IM DIRECTED PRN 01/16/18 09/22/20 History metoprolol succinate [Toprol XL] 25 mg PO QAM 01/16/18 09/22/20 History multivitamin with minerals 1 tab PO QAM 01/16/18 09/22/20 History nitroglycerin [Nitrostat] 0.4 mg SUBLINGUAL DIRECTED PRN 01/16/18 09/22/20 History pantoprazole [Protonix] 40 mg PO QAM 01/16/18 09/22/20 History ranolazine [Ranexa] 500 mg PO Q12H 01/16/18 09/22/20 History magnesium oxide 400 mg PO HS #30 tab 07/31/18 09/22/20 Rx isosorbide mononitrate 60 mg PO QAM #30 tab 02/28/19 09/22/20 Rx acetaminophen [Tylenol Extra 500 mg PO Q6H PRN 07/01/19 09/22/20 History Strength] isosorbide mononitrate 30 mg PO HS 07/01/19 09/22/20 History furosemide 20 mg tablet 20 mg PO BID tab 07/28/19 09/22/20 History ferrous sulfate 325 mg (65 mg 325 mg PO BID 10/19/19 09/22/20 History iron) tablet baclofen 10 mg tablet 10 mg PO TID PRN #90 tab 10/22/19 09/22/20 Rx ergocalciferol (vitamin D2) 1,250 50,000 unit PO MO #12 cap 12/17/19 09/22/20 Rx mcg (50,000 unit) capsule spironolactone 25 mg tablet 12.5 mg PO HS tab 04/11/20 09/22/20 History oxcarbazepine 300 mg tablet 300 mg PO QID #360 tab 06/15/20 09/22/20 Rx gabapentin 300 mg capsule 300 mg PO QID 90 Days #360 cap 07/05/20 09/22/20 Rx warfarin 6 mg tablet 6 mg PO DAILY tab 08/04/20 09/22/20 History amlodipine 5 mg PO DAILY 09/22/20 09/22/20 History potassium chloride 20 meq PO BID 09/22/20 09/22/20 History Past Med/Surg History Medical History (Updated 09/22/20 @ 21:42 by Stevan Winston DO) Aortic aneurysm Breast cancer Chronic kidney disease, stage II (mild) FH: total knee replacement HTN (hypertension) Hypertensive emergency Hyponatremia Ileostomy in place Pulmonary embolism Trigeminal neuralgia Vitamin D deficiency Surgical History H/O cardiac catheterization H/O total colectomy H/O: hysterectomy S/P breast lumpectomy S/P shoulder surgery Family History Mother Cancer Acute myocardial infarction Uterine cancer Hypertension Father Cancer Prostate cancer Social History Smoking Status: Never smoker Second Hand Exposure: No; Hx Alcohol Use: No Hx Substance Use: No Preferred Language: [place] Communication Ability: Effective Clinical Consultant Required: No Beliefs That Will Affect Care: None Current Living Situation: Family Current Living Situation Comment: Grandson and son. Other Information That Helps Us Care for You: No Feels Safe at Home: Yes Safety Concerns: Feels Safe At This Time Assistive Devices: Walker Review of Systems Review of Systems: All systems reviewed & are unremarkable except as noted in HPI & below Physical Exam Constitutional: WD/WN, vitals as above Eyes: PERRL, conjunctivae normal, anicteric sclerae Respiratory: normal respiratory effort; no respiratory distress, no labored breathing and no retractions Auscultation: + crackles (b/l lower lobes); no rales, no rhonchi and no wheezes Cardiovascular: Rate/Rhythm: regular rate and regular rhythm Heart Sounds: + murmur; no gallop and no cardiac rub Vessels: normal peripheral pulses; no JVD Extremities: + edema; no calf tenderness Gastrointestinal (Abdomen): Inspection/Auscultation: normal bowel sounds; abdomen not distended Percussion/Palpation: abdomen soft; abdomen nontender and no guarding Ostomy appreciated over right lower quadrant, site appears intact Musculoskeletal: no cyanosis or clubbing, extremities motor strength 5/5 Skin: no rashes, warm and dry Neurologic: PERRL, EOMI, accommodation nl, no face palsy, no dysarthria CN's II-XI intact bilaterally and moves all extremities Psychiatric: Orientation: alert and oriented x 3 Results & Data Results & Data ([facility]) Vital Signs (Past 12 Hours) Vital Signs Temp Pulse Resp BP Pulse Ox 09/22/20 22:20 60 24 135/71 96 09/22/20 22:15 60 20 121/64 97 09/22/20 22:10 61 22 121/74 95 09/22/20 22:05 63 20 127/71 95 09/22/20 22:00 60 14 136/72 96 09/22/20 21:55 61 19 121/66 96 09/22/20 21:50 61 16 114/57 L 96 09/22/20 21:45 64 15 125/65 95 09/22/20 21:40 66 16 117/72 95 09/22/20 21:39 66 15 117/66 96 09/22/20 21:31 64 22 96 09/22/20 21:30 63 20 130/70 96 09/22/20 21:08 61 20 96 09/22/20 21:07 62 17 110/55 L 97 09/22/20 21:00 72 13 09/22/20 20:45 60 23 95 09/22/20 20:30 72 19 96 09/22/20 20:15 25 H 93 09/22/20 20:00 60 25 H 95 09/22/20 19:48 72 22 92 09/22/20 19:38 37.5 C 64 20 169/84 H 88 L Laboratory Results 09/22/20 09/22/20 09/22/20 Range/Units 20:59 20:59 20:21 WBC (4.8-10.8) K/uL RBC (4.2-5.4) M/uL Hgb (12.0-16.0) g/dL Hct (37-47) % MCV (80-100) fL MCH (25-34) pg MCHC (32-36) g/dL RDW Std Deviation (36.4-46.3) fL RDW Coeff of Boy (11.5-14.5) % Plt Count (130-400) K/uL MPV (7.4-10.4) fL Immature Gran % (Auto) % Neut % (Auto) % Lymph % (Auto) % [place] % (Auto) % Eos % (Auto) % Baso % (Auto) % Neut # (Auto) (1.4-6.5) K/uL Lymph # (Auto) (1.2-3.4) K/uL [place] # (Auto) (0.11-0.59) K/uL Eos # (Auto) (0-0.5) K/uL Baso # (Auto) (0-0.2) K/uL Immature Gran # (Auto) (0.00-0.02) K/uL PT 16.2 H (9.0-12.0) Seconds INR 1.7 H (0.9-1.1) APTT (21.0-31.0) Seconds PTT Ratio Sodium (136-145) mmol/L Potassium 4.2 (3.5-5.1) mmol/L Chloride (98-107) mmol/L Carbon Dioxide (21-32) mmol/L Anion Gap (3-11) BUN (7-18) mg/dl Creatinine (0.6-1.2) mg/dl Est Cr Clr Drug Dosing Est GFR ( Amer) ml/min Est GFR (Non-Af Amer) ml/min BUN/Creatinine Ratio (10-20) Glucose (70-99) mg/dl Calcium (8.5-10.1) mg/dl Phosphorus 2.5 (2.5-4.9) mg/dl Magnesium 2.0 (1.8-2.4) mg/dl Total Bilirubin (0.2-1) mg/dl AST 22 (15-37) U/L ALT (12-78) U/L Alkaline Phosphatase (45-117) U/L Troponin I (0-0.045) ng/ml NT-Pro-B Natriuret Pep 4790 H (0-1800) pg/ml Total Protein (6.4-8.2) gm/dl Albumin (3.4-5.0) gm/dl Globulin (2.5-4.0) gm/dl Albumin/Globulin Ratio (0.9-2) Lipase (73-393) U/L COVID-19 Eval Order SARS-CoV-2 (PCR) (Negative) 09/22/20 09/22/20 09/22/20 Range/Units 20:21 20:05 20:05 WBC (4.8-10.8) K/uL RBC (4.2-5.4) M/uL Hgb (12.0-16.0) g/dL Hct (37-47) % MCV (80-100) fL MCH (25-34) pg MCHC (32-36) g/dL RDW Std Deviation (36.4-46.3) fL RDW Coeff of Boy (11.5-14.5) % Plt Count (130-400) K/uL MPV (7.4-10.4) fL Immature Gran % (Auto) % Neut % (Auto) % Lymph % (Auto) % [place] % (Auto) % Eos % (Auto) % Baso % (Auto) % Neut # (Auto) (1.4-6.5) K/uL Lymph # (Auto) (1.2-3.4) K/uL [place] # (Auto) (0.11-0.59) K/uL Eos # (Auto) (0-0.5) K/uL Baso # (Auto) (0-0.2) K/uL Immature Gran # (Auto) (0.00-0.02) K/uL PT (9.0-12.0) Seconds INR (0.9-1.1) APTT 31.0 (21.0-31.0) Seconds PTT Ratio 1.2 Sodium (136-145) mmol/L Potassium (3.5-5.1) mmol/L Chloride (98-107) mmol/L Carbon Dioxide (21-32) mmol/L Anion Gap (3-11) BUN (7-18) mg/dl Creatinine (0.6-1.2) mg/dl Est Cr Clr Drug Dosing Est GFR ( Amer) ml/min Est GFR (Non-Af Amer) ml/min BUN/Creatinine Ratio (10-20) Glucose (70-99) mg/dl Calcium (8.5-10.1) mg/dl Phosphorus (2.5-4.9) mg/dl Magnesium (1.8-2.4) mg/dl Total Bilirubin (0.2-1) mg/dl AST (15-37) U/L ALT (12-78) U/L Alkaline Phosphatase (45-117) U/L Troponin I (0-0.045) ng/ml NT-Pro-B Natriuret Pep (0-1800) pg/ml Total Protein (6.4-8.2) gm/dl Albumin (3.4-5.0) gm/dl Globulin (2.5-4.0) gm/dl Albumin/Globulin Ratio (0.9-2) Lipase (73-393) U/L COVID-19 Eval Order Covid19 at [facility] SARS-CoV-2 (PCR) NEGATIVE (Negative) 09/22/20 09/22/20 Range/Units 20:00 20:00 WBC 7.20 (4.8-10.8) K/uL RBC 4.43 (4.2-5.4) M/uL Hgb 13.5 (12.0-16.0) g/dL Hct 40.6 (37-47) % MCV 91.6 (80-100) fL MCH 30.5 (25-34) pg MCHC 33.3 (32-36) g/dL RDW Std Deviation 46.2 (36.4-46.3) fL RDW Coeff of Boy 13.7 (11.5-14.5) % Plt Count 157 (130-400) K/uL MPV 10.7 H (7.4-10.4) fL Immature Gran % (Auto) 0.1 % Neut % (Auto) 63.0 % Lymph % (Auto) 22.1 % [place] % (Auto) 11.9 % Eos % (Auto) 2.6 % Baso % (Auto) 0.3 % Neut # (Auto) 4.53 (1.4-6.5) K/uL Lymph # (Auto) 1.59 (1.2-3.4) K/uL [place] # (Auto) 0.86 H (0.11-0.59) K/uL Eos # (Auto) 0.19 (0-0.5) K/uL Baso # (Auto) 0.02 (0-0.2) K/uL Immature Gran # (Auto) 0.01 (0.00-0.02) K/uL PT (9.0-12.0) Seconds INR (0.9-1.1) APTT (21.0-31.0) Seconds PTT Ratio Sodium 138 (136-145) mmol/L Potassium (3.5-5.1) mmol/L Chloride 107 (98-107) mmol/L Carbon Dioxide 23 (21-32) mmol/L Anion Gap 8.0 (3-11) BUN 25 H (7-18) mg/dl Creatinine 1.03 (0.6-1.2) mg/dl Est Cr Clr Drug Dosing Not Reportable Est GFR ( Amer) 56.2 ml/min Est GFR (Non-Af Amer) 48.5 ml/min BUN/Creatinine Ratio 23.8 H (10-20) Glucose 127 H (70-99) mg/dl Calcium 9.8 (8.5-10.1) mg/dl Phosphorus (2.5-4.9) mg/dl Magnesium (1.8-2.4) mg/dl Total Bilirubin 0.5 (0.2-1) mg/dl AST (15-37) U/L ALT 22 (12-78) U/L Alkaline Phosphatase 139 H (45-117) U/L Troponin I 0.025 (0-0.045) ng/ml NT-Pro-B Natriuret Pep (0-1800) pg/ml Total Protein 7.8 (6.4-8.2) gm/dl Albumin 3.5 (3.4-5.0) gm/dl Globulin 4.3 H (2.5-4.0) gm/dl Albumin/Globulin Ratio 0.8 L (0.9-2) Lipase 113 (73-393) U/L COVID-19 Eval Order SARS-CoV-2 (PCR) (Negative) Medications Administered Current Inpatient Medications Acetaminophen (Acetaminophen 325 Mg Tab) 650 mg PO Q4H PRN PRN Reason: pain/fever Stop: 10/23/20 00:29 Al Hydrox/Mg Hydrox/Simethicone (Aluminum/Magnesium Susp 30 Ml Udc) 30 ml PO Q6H PRN PRN Reason: Dyspepsia Stop: 10/23/20 00:29 Amlodipine Besylate (Amlodipine Besylate 5 Mg Tab) 5 mg PO DAILY PR[facility] Stop: 10/23/20 08:59 Baclofen (Baclofen 10 Mg Tab) 10 mg PO TID PRN PRN Reason: Muscle Spasm/face pain Stop: 10/23/20 00:29 Clopidogrel Bisulfate (Clopidogrel Bisulfate 75 Mg Tab) 75 mg PO QAM [facility] Stop: 10/23/20 08:59 Furosemide (Furosemide 20 Mg Tab) 20 mg PO BID17 [facility] Stop: 10/23/20 08:59 Gabapentin (Gabapentin 300 Mg Cap) 300 mg PO QID [facility] Stop: 10/23/20 00:59 Last Admin: 09/23/20 01:46 Dose: 300 mg Documented by: Amiodarone HCl/Dextrose (Nexterone / D5w) 360 mg in 200 mls @ 33.333 mls/hr IV ONE ONE Stop: 09/23/20 03:27 Last Admin: 09/22/20 21:51 Dose: 33.3 mls/hr Documented by: Amiodarone HCl/Dextrose (Nexterone / D5w) 360 mg in 200 mls @ 16.667 mls/hr IV .Q12H [facility] Stop: 10/23/20 03:27 Isosorbide Mononitrate (Isosorbide [place] Extended Rel 60 Mg Tabcr) [facility] [place] Stop: 10/23/20 08:59 Isosorbide Mononitrate (Isosorbide [place] Extended Rel 30 Mg Tabcr) 30 mg PO [facility] Stop: 10/23/20 20:59 Magnesium Hydroxide (Magnesium Hydroxide Susp 30 Ml Udc) 30 ml PO Q6H PRN PRN Reason: Constipation Stop: 10/23/20 00:29 Magnesium Oxide (Magnesium Oxide 400 Mg Tab) 400 mg PO [facility] Stop: 10/23/20 20:59 Metoprolol Succinate (Metoprolol Succ 25mg Ext Rel Tab) 25 mg PO [facility] Stop: 10/23/20 08:59 Nitroglycerin (Nitroglycerin 2% Ointment 30gm Tube) 2 inch EXT Q6H [facility] Stop: 10/22/20 19:59 Last Admin: 09/23/20 01:46 Dose: 2 inch Documented by: Ondansetron HCl (Ondansetron Inj 2 Mg/Ml 2 Ml Vial) 4 mg IV Q6H PRN PRN Reason: Nausea Stop: 10/23/20 00:29 Oxcarbazepine (Oxcarbazepine 150 Mg Tablet) 300 mg PO QID [facility] Stop: 10/23/20 00:59 Last Admin: 09/23/20 01:46 Dose: 300 mg Documented by: Pantoprazole Sodium (Pantoprazole 40 Mg Tab) 40 mg PO QAM [facility] Stop: 10/23/20 08:59 Polyethylene Glycol (Polyethylene (Miralax) 17 Gm Pack) 17 gm PO DAILY PRN PRN Reason: Constipation Stop: 10/23/20 00:29 Ranolazine (Ranolazine 500 Mg Er Tab) 500 mg PO Q12H [facility] Stop: 10/23/20 08:59 Spironolactone (Spironolactone 12.5 Mg Tab) 12.5 mg PO HS [facility] Stop: 10/23/20 20:59 Warfarin Sodium (Warfarin Sod 6 Mg Tab) 6 mg PO DAILY@1600 [facility] Stop: 10/23/20 15:59 Supervising Physician Co-Signing Physician Notes Patient seen and examined, chart reviewed, case discussed with Dr. Franklin and I agree with his assessment and plan as documented above. Briefly, patient is an 89-year-old female with history of coronary artery disease status post multiple stents, aortic stenosis status post TAVR, CHF presenting with progressive dys pnea and chest heaviness. In the ER patient demonstrated paced rhythm with frequent ectopy, tachycardia with wide-complex. [facility] representatives contacted for interrogation of pacemaker however, was unable to make the trip in [facility]. On exam patient is afebrile, hemodynamically stable, no acute distress HEENTnormocephalic, atraumatic, pupils equal round and reactive to light Heart+ S1/S2, regular, monitor with paced rhythm at 62 bpm Lungsequal air entry bilaterally, + crackles in bilateral bases Abdomen+ bowel sounds, soft, nontender, nondistended, ileostomy in place with stool in bag Extremitieswarm, well-perfused, + edema bilaterally Labs and images reviewed Assessment/plan: Suspect element of CHF exacerbation contributing to symptoms We will diurese with Lasix Ectopy/wide-complex tachycardiapatient remains hemodynamically stable, minimally symptomatic. Question PACs with pacer versus PVCs Pacer interrogation Diuresis as above Electrolyte optimization Currently on amiodarone. We will continue for now. CAD Telemetry monitoring. Trend troponin, cardiology consultation appreciated Remainder of plan as above Resident Activity Tracking Resident Involvement: Resident Care Provided Care Provided: Adult [facility] Medicine (1) CHF (congestive heart failure) Heart failure chronicity: acute on chronic Heart failure type: unspecified Qualified Code(s): I50.9 - Heart failure, unspecified
[2020-09-23] MEDS ORDERED: MAGNESIUM HYDROXIDE SUSP 30 ML UDC PO PRN (00:30)
[2020-09-23] MEDS ORDERED: ALUMINUM/MAGNESIUM SUSP 30 ML UDC PO PRN (00:30)
[2020-09-23] MEDS ORDERED: BACLOFEN 10 MG TAB PO PRN (00:30)
[2020-09-23] MEDS ORDERED: ONDANSETRON INJ 2 MG/ML 2 ML VIAL IV PRN (00:30)
[2020-09-23] MEDS ORDERED: ACETAMINOPHEN 325 MG TAB PO PRN (00:30)
[2020-09-23] MEDS ORDERED: POLYETHYLENE (MIRALAX) 17 GM PACK PO PRN (00:30)
--- NOTE | 2020-09-23 01:25 | Billing Data ---
Date of Service September 23, 2020 Coding Level of Care Code 89495 Initial Inpt Care Lvl 3
[2020-09-23] MEDS: GABAPENTIN 300 MG CAP PO SCH ×5 (01:46→21:15)
[2020-09-23] MEDS: NITROGLYCERIN 2% OINTMENT 30GM TUBE EXT SCH ×4 (01:46→21:16)
[2020-09-23] MEDS: OXcarbazepine 150 MG TABLET PO SCH ×5 (01:46→21:15)
[2020-09-23] MEDS ORDERED: AMIODARONE / D5W 360 MG/200 ML BAG IV SCH (03:28)
[2020-09-23 05:35] LABS: Basophils # (auto) 0.02 K/uL (0-0.2); Basophils % (auto) 0.4 %; Eosinophils # (auto) 0.19 K/uL (0-0.5); Eosinophils % (auto) 3.7 %; Hematocrit (blood only) 38.9 % (37-47); Immature Granulocytes # (auto) 0.01 K/uL (0.00-0.02); Immature Granulocytes % (auto) 0.2 %; Lymphocytes # (auto) 1.22 K/uL (1.2-3.4); Mean Corpuscular Hemoglobin 31.1 pg (25-34); Mean Corpuscular Hgb Conc 33.4 g/dL (32-36); Mean Corpuscular Volume 93.1 fL (80-100); Mean Platelet Volume 10.8 fL (7.4-10.4); Monocytes # (auto) 0.73 K/uL (0.11-0.59); Monocytes % (auto) 14.3 %; Neutrophils # (auto) 2.92 K/uL (1.4-6.5); Neutrophils % (auto) 57.4 %; Platelet Count 154 K/uL (130-400); RDW Coefficient of Variation 13.6 % (11.5-14.5); RDW Standard Deviation 46.5 fL (36.4-46.3); Red Blood Count 4.18 M/uL (4.2-5.4); White Blood Count 5.09 K/uL (4.8-10.8)
[2020-09-23 05:38] LABS: INR 1.6 (0.9-1.1); Prothrombin Time 15.3 Seconds (9.0-12.0)
[2020-09-23 05:52] LABS: BUN Creatinine Ratio 20.6 (10-20); Calcium 9.5 mg/dl (8.5-10.1); Creatinine Clr Calc Pharmacy 37.2 ml/min; Est GFR (African American) 56.2 ml/min; Est GFR (Non-African American) 48.5 ml/min; Magnesium 1.9 mg/dl (1.8-2.4); Potassium 3.6 mmol/L (3.5-5.1)
[2020-09-23 05:58] LABS: Phosphorus 3.2 mg/dl (2.5-4.9); Troponin I 0.045 ng/ml (0-0.045)
--- NOTE | 2020-09-23 07:38 | Electrocardiogram Report ---
Test Reason : Blood Pressure : / mmHG Vent. Rate : 079 BPM Atrial Rate : 051 BPM P-R Int : 348 ms QRS Dur : 136 ms QT Int : 432 ms P-R-T Axes : 000 -74 074 degrees QTc Int : 495 ms AV dual-paced rhythm with prolonged AV conduction with frequent ventricular-paced complexes and with occasional Premature ventricular complexes Abnormal ECG When compared with ECG of 20-APR-2020 17:25, Premature ventricular complexes are now Present Vent. rate has increased BY 5 BPM Confirmed by Abel Ferrara ([id number]) on 09/23/2020 7:38:10 AM Referred By: REFERRED SELF Confirmed By:Abel Ferrara
--- NOTE | 2020-09-23 07:49 | Electrocardiogram Report ---
Test Reason : Blood Pressure : / mmHG Vent. Rate : 064 BPM Atrial Rate : 064 BPM P-R Int : 250 ms QRS Dur : 186 ms QT Int : 518 ms P-R-T Axes : 094 264 047 degrees QTc Int : 534 ms AV dual-paced rhythm with prolonged AV conduction Abnormal ECG When compared with ECG of 22-SEP-2020 19:49, Premature ventricular complexes are no longer Present Vent. rate has decreased BY 15 BPM Confirmed by Abel Ferrara ([id number]) on 09/23/2020 7:48:49 AM Referred By: REFERRED SELF Confirmed By:Abel Ferrara
[2020-09-23] MEDS: RANOLAZINE 500 MG ER TAB PO SCH ×2 (08:34→21:15)
[2020-09-23] MEDS: FUROSEMIDE 20 MG TAB PO SCH ×2 (08:34→16:27)
[2020-09-23] MEDS: ISOSORBIDE MONO EXTENDED REL 60 MG TABCR PO SCH (08:34)
[2020-09-23] MEDS: CLOPIDOGREL BISULFATE 75 MG TAB PO SCH (08:35)
[2020-09-23] MEDS: PANTOprazole 40 MG TAB PO SCH (08:35)
[2020-09-23] MEDS: METOPROLOL SUCC 25MG EXT REL TAB PO SCH (08:35)
[2020-09-23] MEDS: amLODIPine BESYLATE 5 MG TAB PO SCH (08:35)
--- NOTE | 2020-09-23 08:35 | Hospitalist Progress Note ---
Date of Service September 23, 2020 Assessment & Plan (1) CHF (congestive heart failure): Ms. Ely is a 89-year-old female with PMH significant for muazo-[id number]-[id number] heart failure with preserved ejection fraction, coronary artery disease s/p multiple stent placements, aortic stenosis s/p TAVR (2019), history of PE (on chronic coumadin) and AAA who presented to the ED with a one-day history of progressive dyspnea not alleviated with her home regimen. Acute Diastolic CHF exacerbation Likely secondary to dietary indiscretion, as patient admits not limiting sodium recently as much as she knows she should CXR demonstrating cardiomegaly with CHF pattern and stable left pleural effusion with some signs of pulmonary edema BNP on admission 4790 Follow up repeat echo similar to last Lasix 40mg IV given in ED; currently on lasix 20mg PO bid Cardiology consulted Dysrhythmia Cardiology consulted: Patient's EKG represents a ventricular-paced rhythm at 110-120bpm Ventricular ectopy increase likely secondary to worsening CHF; today's rhythm is predominantly paced with minimal ectopy Pacemaker interrogation "may or may not be illuminating" Per cardiology, discontinue amiodarone, continue to monitor rhythm overnight, and continue patient's usual home meds Echo similar to baseline; small bioprosthetic aortic valve perivalvular leak which is unlikely to be clinically significant CAD with multiple stent placement, chronic stable angina Troponin 0.025 on admission, trivial elevation overnight, at patient's baseline; unlikely to be clinically relevant Continue clopidogrel, metoprolol, nitrobid (scheduled) History of PE INR 1.7 on admission, 1.6 today INR goal 2-3 Continue warfarin 6mg PO daily (at 16:00) PT/INR daily CKD2 Cr at baseline on admission; still at baseline on 09/22 Continue close monitoring with daily BMP given aggressive diuresis 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 and NaCl tablets at home, per nephrology (follows outpatient); Na requirement given SIADH as well as ileostomy Diet changed from low sodium, heart healthy to just heart healthy Elementary School Tutor consult placed HTN Continue isosorbide mononitrate 60mg PO qAM, 30mg PO qhs Continue metoprolol succinate 25mg PO qAM Trigeminal neuralgia Continue oxcarbazepine, gabapentin FEN: heart healthy diet Code status: conditional code (no intubation or mechanical ventilation) DVT ppx: warfarin Isolation: none Consults: cardiology Dispo: med/surg tele Admission and Anticipated Discharge Date Admission Date: September 22, 2020 Supervising Physician Co-Signing Physician Notes Resident Physician Supervision Note: I independently interviewed and examined the patient and verified the arias history and physical, reviewed labs and image studies and agree with resident Dr. Carter findings and care plan. Subjective Patient seen and evaluated at bedside this morning. Patient reports one brief episode of central chest discomfort overnight that lasted for about 30 seconds. Denies shortness of breath at that time or currently. Denies nausea, vomiting, fever, chills, abdominal pain, or other symptoms at this time. Feels "far bett er" than she did when she came in. Review of Systems Review of Systems: See HPI Physical Exam Physical Exam: Constitutional: well-appearing, no acute distress HEENT: NCAT, no conjunctival injection CV: regular rhythm, harsh 5/6 systolic murmur heard best over right sternal border, extremities well-perfused, 1+ LE edema appreciated Resp: CTABL, no wheezes/rales/rhonchi appreciated, no increased work of breathing Skin: warm, dry, no rash appreciated Neuro: AOx4, no focal neurological deficits appreciated Psych: cooperative, pleasant, appropriate rate/volume/quantity of speech Results & Data Results & Data ([facility]) Vital Signs (Past 12 Hours) Vital Signs Temp Pulse Pulse Resp BP BP Pulse Ox 09/23/20 07:18 36.5 C 68 19 151/78 H 99 09/23/20 03:32 36.8 C 72 18 135/84 98 09/23/20 00:15 36.5 C 78 16 137/83 96 09/22/20 23:16 62 23 93 09/22/20 23:15 61 23 123/64 95 09/22/20 23:10 61 17 111/63 98 09/22/20 23:05 63 19 124/65 97 09/22/20 23:01 62 20 95 09/22/20 23:00 63 23 138/72 95 09/22/20 22:55 65 19 122/70 96 09/22/20 22:51 66 23 129/71 96 09/22/20 22:45 67 24 124/78 96 09/22/20 22:40 63 21 139/73 95 09/22/20 22:35 61 21 122/75 95 09/22/20 22:30 61 21 129/68 95 09/22/20 22:25 60 24 128/64 95 09/22/20 22:21 60 22 95 09/22/20 22:20 60 24 135/71 96 09/22/20 22:15 60 20 121/64 97 09/22/20 22:10 61 22 121/74 95 09/22/20 22:05 63 20 127/71 95 09/22/20 22:00 60 14 136/72 96 09/22/20 21:55 61 19 121/66 96 09/22/20 21:50 61 16 114/57 L 96 09/22/20 21:45 64 15 125/65 95 09/22/20 21:40 66 16 117/72 95 09/22/20 21:39 66 15 117/66 96 09/22/20 21:31 64 22 96 09/22/20 21:30 63 20 130/70 96 09/22/20 21:08 61 20 96 09/22/20 21:07 62 17 110/55 L 97 09/22/20 21:00 72 13 09/22/20 20:45 60 23 95 Resident Activity Tracking Resident Involvement: Resident Care Provided Care Provided: Adult Hospital Medicine (1) CHF (congestive heart failure) Heart failure chronicity: acute on chronic Heart failure type: unspecified Qualified Code(s): I50.9 - Heart failure, unspecified
[2020-09-23] MEDS ORDERED: OXcarbazepine 150 MG TABLET PO SCH (09:00)
[2020-09-23] MEDS ORDERED: GABAPENTIN 300 MG CAP PO SCH (09:00)
--- NOTE | 2020-09-23 12:24 | XCELERA ---
[id number]
--- NOTE | 2020-09-23 13:36 | Cardiology Consultation ---
Date of Consultation September 23, 2020 Assessment & Plan (1) Acute diastolic CHF (congestive heart failure): (2) Chronic stable angina: (3) Pacemaker: (4) Coronary artery disease: (5) S/P TAVR (transcatheter aortic valve replacement): Complex patient with similar admission for mildly decompensated CHF March 2020. Fortunately, she responded well to overnight diuresis and feels back to her baseline today. She still appears mildly hypervolemic, continue diuresis. Hemodynamics are favorable. Review of telemetry did not reveal significant dysrhythmia, the wide-complex rhythm appears to be a ventricular paced rhythm at 110-120 bpm (same morphology as her ventricular paced beats). Further evaluation with pacemaker interrogation may or may not be illuminating, given the complexity of her baseline tracings (variably AV pacing, ventricular pacing, frequent ventricular ectopy). Likely her ventricular ectopy increased in the context of worsening CHF, today rhythm is predominantly paced with minimal ectopy. Would discontinue amiodarone and continue to monitor rhythm overnight. Continue her usual outpatient medications. Echocardiogram similar to baseline, there is suggestion of a small bioprosthetic aortic valve perivalvular leak, this is unlikely to be clinically significant. We will continue to follow. If she does well overnight, she could potentially be discharged home tomorrow. History of Present Illness Reason for Consultation: Wide-complex tachycardia in the setting of pacer Requesting Physician: Stevan Winston DO Attending Physician: Mali Webster MD History of Present Illness 89-year-old woman with complex cardiac history including TAVR, dual-chamber pacemaker, CAD (multiple stents), and heart failure with preserved ejection fraction, who was admitted 09/22/2020 with dyspnea at rest and chest heaviness/right ear discomfort (an anginal equivalent for her). She notes that she felt well the day prior to admission, at some point on the day of admission she started to feel poorly stating that she had to sit down to catch her breath and felt chest heaviness and right ear discomfort. She noted a mild increase in her chronic leg edema. She denied orthopnea, PND, subjective palpitations, presyncope, or syncope. She was noted to have a "wide-complex tachycardia" in the ER, review of telemetry shows that this was actually a paced rhythm at 110-120 bpm (same morphology as her electronically paced ventricular rhythm). At the time of my evaluation, she felt much better and denied any chest discomfort, dyspnea, or any other complaints at rest. PMH: CAD, cath 2019 results: Chronic 100% mid LAD occlusion after D1 Chronic 100% mid circumflex occlusion after OM2. Small OM2 with severe diffuse disease. Very large RCA with 95+% acute mid stenosis. Patent proximal, distal stents. Provides right to left collaterals to LAD. Successful PCI of mid RCA with single SYLVIE (4.0 x 26 [place] SYLVIE; post-dilated with 5.0 NC). Elevated left sided filling pressures (LVEDP 29) AAA, 7 cm. Attempted repair was aborted, managed conservatively. Pacemaker, 2017. Biotronik TAVR , 2019 Mahajan Jose 23 mm For further details of her cardiac history see Dr. Clark's cardiology consultation from 01/24/2017. Allergies Allergy/AdvReac Type Severity Reaction Status Date / Time bee venom protein (honey bee) Allergy Severe ANAPHYLAXIS Verified 09/22/20 21:06 sodium lauryl sulfate Allergy Intermediate HIVES & Verified 09/22/20 21:06 WELTS Home Medications Medication Instructions Recorded Confirmed Type clopidogrel [Plavix] 75 mg PO QAM 01/16/18 09/22/20 History epinephrine [EpiPen 2-Percy] 0.3 mg IM DIRECTED PRN 01/16/18 09/22/20 History metoprolol succinate [Toprol XL] 25 mg PO QAM 01/16/18 09/22/20 History multivitamin with minerals 1 tab PO QAM 01/16/18 09/22/20 History nitroglycerin [Nitrostat] 0.4 mg SUBLINGUAL DIRECTED PRN 01/16/18 09/22/20 History pantoprazole [Protonix] 40 mg PO QAM 01/16/18 09/22/20 History ranolazine [Ranexa] 500 mg PO Q12H 01/16/18 09/22/20 History magnesium oxide 400 mg PO HS #30 tab 07/31/18 09/22/20 Rx isosorbide mononitrate 60 mg PO QAM #30 tab 02/28/19 09/22/20 Rx acetaminophen [Tylenol Extra 500 mg PO Q6H PRN 07/01/19 09/22/20 History Strength] isosorbide mononitrate 30 mg PO HS 07/01/19 09/22/20 History furosemide 20 mg tablet 20 mg PO BID tab 07/28/19 09/22/20 History ferrous sulfate 325 mg (65 mg 325 mg PO BID 10/19/19 09/22/20 History iron) tablet baclofen 10 mg tablet 10 mg PO TID PRN #90 tab 10/22/19 09/22/20 Rx ergocalciferol (vitamin D2) 1,250 50,000 unit PO MO #12 cap 12/17/19 09/22/20 Rx mcg (50,000 unit) capsule spironolactone 25 mg tablet 12.5 mg PO HS tab 04/11/20 09/22/20 History oxcarbazepine 300 mg tablet 300 mg PO QID #360 tab 06/15/20 09/22/20 Rx gabapentin 300 mg capsule 300 mg PO QID 90 Days #360 cap 07/05/20 09/22/20 Rx warfarin 6 mg tablet 6 mg PO DAILY tab 08/04/20 09/22/20 History amlodipine 5 mg PO DAILY 09/22/20 09/22/20 History potassium chloride 20 meq PO BID 09/22/20 09/22/20 History Patient History Medical History Aortic aneurysm Breast cancer Chronic kidney disease, stage II (mild) Closed fracture of zygomatic arch Depression Dyslipidemia FH: total knee replacement H/O esophageal reflux HTN (hypertension) Hypertensive emergency Hyponatremia Ileostomy in place Pulmonary embolism Trigeminal neuralgia Vitamin D deficiency Surgical History H/O cardiac catheterization H/O total colectomy H/O: hysterectomy S/P breast lumpectomy S/P shoulder surgery Family History Prostate cancer Father Acute myocardial infarction Mother Cancer Mother Father Hypertension Mother Uterine cancer Mother Social History Smoking Status: Never smoker Second Hand Exposure: No; Hx Alcohol Use: No Hx Substance Use: No Preferred Language: Malaysian Communication Ability: Effective Communications Media Professor Required: No Beliefs That Will Affect Care: None Current Living Situation: Family Current Living Situation Comment: Grandson and son. Other Information That Helps Us Care for You: No Feels Safe at Home: Yes Safety Concerns: Feels Safe At This Time Assistive Devices: Oxygen - Continuous Physical Exam Physical Exam: Mildly obese elderly white female in no distress. Afebrile. BP generally normotensive. Pulse 60-70 bpm with sporadic ectopy. Skin: no generalized lesions. HEENT: unremarkable. Neck: Jugular venous pulse one quarter the way to the angle of the jaw. Lungs: Few basilar crackles, generally clear. Cardiac: regular rhythm with occasional ectopy, 2/6 right upper sternal border systolic ejection murmur, 2/6 apical holosystolic murmur, intact aortic closure sound. Abdomen: benign. Extremities: 1+ pretibial edema with chronic stasis changes (hyperpigmented right lower extremity), lower extremity pulses not readily palpable but feet warm, fair capillary refill (2-3 seconds). Neurologic: normal affect and conversation, nonfocal. Results & Data ([facility]) Vital Signs (Past 12 Hours) Vital Signs Temp Pulse Resp BP Pulse Ox 09/23/20 10:58 98.2 F 62 18 129/74 94 09/23/20 07:18 97.7 F 68 19 151/78 H 99 09/23/20 03:32 98.2 F 72 18 135/84 98 Laboratory Results CBC unremarkable. Normal electrolytes, BUN 21, creatinine 1.03 (25 and 1.03 yesterday). Troponin negative x3. proBNP 4790. Diagnostic Findings ECG on admission showed AV dual paced rhythm with prolonged AV conduction, PVCs, and periods of isolated ventricular pacing. ECG today showed AV dual pacing with prolonged AV conduction. As noted, review of telemetry showed only paced rhythm (alternating between AV pacing and ventricular pacing) with frequent PVCs but no documented ventricular tachycardia. Chest x-ray on admission showed CHF and a small left pleural effusion. Echocardiogram showed normal systolic function (EF 55 to 60%), moderate LVH, chronic mild to distal anterior wall hypokinesis, bioprosthetic aortic valve with acceptable gradient but small perivalvular leak, moderate mitral regurgitation with mild mitral stenosis and a severely dilated left atrium, moderate pulmonary hypertension. Compared with 2019 study, small aortic bioprosthetic paravalvular leak is suggested, otherwise no significant change. PG Care Time/CCT Total # of Minutes Spent Total Time Spent with Patient: Total time spent is greater than 50% in coordination of care (as documented) at patient's floor/unit and/or counseling patient: Coding Level of Care Code 58931 Initial Inpt Care Lvl 3 Diagnoses Acute diastolic CHF (congestive heart failure) I50.31 Chronic stable angina I20.8 Pacemaker Z95.0 Coronary artery disease I25.10 S/P TAVR (transcatheter aortic valve replacement) Z95.2 Time Spent (min) 75
[2020-09-23] MEDS ORDERED: WARFARIN SOD 6 MG TAB PO SCH (16:00)
[2020-09-23] MEDS ORDERED: SPIRONOLACTONE 12.5 MG TAB PO SCH (21:00)
[2020-09-23] MEDS ORDERED: ISOSORBIDE MONO EXTENDED REL 30 MG TABCR PO SCH (21:00)
[2020-09-23] MEDS ORDERED: MAGNESIUM OXIDE 400 MG TAB PO SCH (21:00)
[2020-09-24] MEDS: NITROGLYCERIN 2% OINTMENT 30GM TUBE EXT SCH ×2 (01:55→08:23)
[2020-09-24 05:15] LABS: Basophils # (auto) 0.03 K/uL (0-0.2); Basophils % (auto) 0.5 %; Eosinophils # (auto) 0.19 K/uL (0-0.5); Eosinophils % (auto) 3.4 %; Hematocrit (blood only) 35.7 % (37-47); Hemoglobin 11.6 g/dL (12.0-16.0); Lymphocytes # (auto) 1.13 K/uL (1.2-3.4); Lymphocytes % (auto) 20.4 %; Mean Corpuscular Hemoglobin 30.3 pg (25-34); Mean Corpuscular Hgb Conc 32.5 g/dL (32-36); Mean Corpuscular Volume 93.2 fL (80-100); Mean Platelet Volume 10.7 fL (7.4-10.4); Monocytes # (auto) 0.79 K/uL (0.11-0.59); Monocytes % (auto) 14.3 %; Neutrophils % (auto) 61.4 %; Platelet Count 140 K/uL (130-400); RDW Coefficient of Variation 13.4 % (11.5-14.5); Red Blood Count 3.83 M/uL (4.2-5.4); White Blood Count 5.54 K/uL (4.8-10.8)
[2020-09-24 05:22] LABS: INR 1.6 (0.9-1.1)
[2020-09-24 05:29] LABS: BUN Creatinine Ratio 21.3 (10-20); Calcium 8.5 mg/dl (8.5-10.1); Creatinine Clr Calc Pharmacy 32.8 ml/min; Est GFR (African American) 48.2 ml/min; Est GFR (Non-African American) 41.6 ml/min; Potassium 3.5 mmol/L (3.5-5.1)
[2020-09-24] MEDS: OXcarbazepine 150 MG TABLET PO SCH (08:21)
[2020-09-24] MEDS: CLOPIDOGREL BISULFATE 75 MG TAB PO SCH (08:22)
[2020-09-24] MEDS: GABAPENTIN 300 MG CAP PO SCH (08:22)
[2020-09-24] MEDS: METOPROLOL SUCC 25MG EXT REL TAB PO SCH (08:22)
[2020-09-24] MEDS: ISOSORBIDE MONO EXTENDED REL 60 MG TABCR PO SCH (08:22)
[2020-09-24] MEDS: RANOLAZINE 500 MG ER TAB PO SCH (08:22)
[2020-09-24] MEDS: FUROSEMIDE 20 MG TAB PO SCH (08:22)
[2020-09-24] MEDS: PANTOprazole 40 MG TAB PO SCH (08:23)
[2020-09-24] MEDS: amLODIPine BESYLATE 5 MG TAB PO SCH (08:23)
--- NOTE | 2020-09-24 10:25 | Discharge Summary ---
Date of Service September 24, 2020 Admission HPI Per Admitting Provider Ms. Ely is a 89-year-old female with PMH significant for ncubi-ci-pqduyvz heart failure with preserved ejection fraction, coronary artery disease s/p multiple stent placements, aortic stenosis s/p TAVR in 2019, history of PEs (on Coumadin), and a known AAA; who presented to the ED for evaluation of progressive dyspnea throughout the day today that was not alleviated through her typical methods. Admits that over the last several days to weeks she has been a little bit more lax with monitoring her sodium intake through the consumption of foods like ice cream. Typically tends to do a really good job of monitoring her sodium intake as her family prepares meals for her and tends to cook from scratch entirely and will part of her portions of food prior to any sodium being added to the dishes. Earlier today when she woke up she noticed that she was feeling more of a heaviness across her chest with some feeling of difficulty of catching her breath, but no pain at that time. Upon discussion with her family she did not want to go to the the hospital for further evaluation at that moment time but decided if this continued throughout the day that she would. Later in the day after this had seemingly continued she ultimately acquiesced to her family's desires to have her evaluated further. She trialed sitting down throughout the day and sitting more upright with no relative improvement in her shortness of breath. Did note that her legs were more swollen over the last couple days than they normally would be, however I have not been more tender than otherwise normal for her. Throughout the day today she denies chest pain, palpitations, coughing, nausea, vomiting, or abdominal pain. Endorses chest heaviness, peripheral edema, dyspnea on exertion and with laying flat. Admission Exam Per Admitting Provider Constitutional: WD/WN, vitals as above Eyes: PERRL, conjunctivae normal, anicteric sclerae Respiratory: normal respiratory effort; no respiratory distress, no labored breathing and no retractions Auscultation: + crackles (b/l lower lobes); no rales, no rhonchi and no wheezes Cardiovascular: Rate/Rhythm: regular rate and regular rhythm Heart Sounds: + murmur; no gallop and no cardiac rub Vessels: normal peripheral pulses; no JVD Extremities: + edema; no calf tenderness Gastrointestinal (Abdomen): Inspection/Auscultation: normal bowel sounds; abdomen not distended Percussion/Palpation: abdomen soft; abdomen nontender and no guarding Ostomy appreciated over right lower quadrant, site appears intact Musculoskeletal: no cyanosis or clubbing, extremities motor strength 5/5 Skin: no rashes, warm and dry Neurologic: PERRL, EOMI, accommodation nl, no face palsy, no dysarthria CN's II-XI intact bilaterally and moves all extremities Psychiatric: Orientation: alert and oriented x 3 Principal Diagnosis Acute on Chronic HFpEF Discharge Exam General: A&Ox3. NAD. Cooperative. HEENT: Atraumatic, normocephalic. Pulm: Faint crackles at bilateral lung bases. Symmetrical chest rise. No increase work of breathing. No respiratory distress. Cardiac: RRR, 1/6 systolic murmur best auscultated in right upper sternal border. Radial pulses intact and symmetrical. No LE edema. Well-perfused. Abdominal: soft, non-tender, non-distended, BS x 4 Skin: warm, dry, no rash Discharge Data Allergies Allergy/AdvReac Type Severity Reaction Status Date / Time bee venom protein (honey bee) Allergy Severe ANAPHYLAXIS Verified 09/22/20 21:06 sodium lauryl sulfate Allergy Intermediate HIVES & Verified 09/22/20 21:06 WELTS Consultations 09/23/20 00:30 Consult Cardiology Routine Hospital Course (1) CHF (congestive heart failure): Ms. Ely is a 89-year-old female with PMH significant for calhc-ft-fmwrfse heart failure with preserved ejection fraction, coronary artery disease s/p multiple stent placements, aortic stenosis s/p TAVR (2018), history of PE (on chronic coumadin) and AAA who was admitted to [facility] from 09/22-09/24/2020 for dyspnea secondary to acute on chronic HFpEF Acute on Chronic HFpEF Likely secondary to dietary indiscretion, as patient admits not limiting sodium recently as much as she knows she should CXR demonstrating cardiomegaly with CHF pattern and stable left pleural effusion with some signs of pulmonary edema BNP on admission 4790 Follow up repeat echo similar to last in 2019 Lasix 40mg IV given in ED, then continued on home Lasix 20mg PO bid - diuresed well. Euvolemic on discharge. F/u with PCP and Senior Sales Operations Analyst after discharge Dysrhythmia Cardiology consulted: Patient's EKG represents a ventricular-paced rhythm at 110-120bpm, likely due to fast pacing rather than ventricular tachycardia Patient was on an Amiodarone gtt for less than one day before stopping, per Cardiology recommendations on 09/23; patient's HR remained appropriately paced in the 80s-90s without gtt Echo similar to baseline; small bioprosthetic aortic valve perivalvular leak which is unlikely to be clinically significant CAD with multiple stent placement, chronic stable angina Troponin 0.025 on admission, trivial elevation overnight, at patient's baseline; unlikely to be clinically relevant Continue clopidogrel, metoprolol, nitrobid (scheduled) History of PE INR 1.7 on admission, 1.6 today INR goal 2-3 Continue warfarin 6mg PO daily (at 16:00) Continue anti-coagulation clinic f/u after discharge HTN Continue isosorbide mononitrate 60mg PO qAM, 30mg PO qhs Continue metoprolol succinate 25mg PO qAM Trigeminal neuralgia Continue oxcarbazepine, gabapentin Total Time Total Time Spent Total Time Spent (In Minutes): 30 minutes Total Time Includes: Examination of the Patient, Discharge Planning and Medication Reconciliation Discharge Plan Discharge Items Patient Disposition: Home - Self-Care Reason For Visit: CHF,WIDE COMPLEX TACHYCARDIA Discharge Diagnosis: Acute on Chronic HFpEF Activity: Per Instructions section Non-emergency contact: Primary Care Provider and Senior Sales Operations Analyst Call non-emergency contact if: you have any medication questions and your symptoms worsen Follow-up/Referrals: Abel Ferrara MD [Physician] - Julius Zamora MD [Primary Care Provider] - Diet: Heart Healthy Addtl Attending Provider Instructions: You were admitted to [facility] on 09/22/2020 for shortness of breath due to an exacerbation of your chronic heart failure. You were given several doses of IV Lasix which helped to improve your symptoms. You also had a heart ultrasound (Echocardiogram) done which thankfully did not show any worsening of heart function in comparison to the test that was done in 2019. You developed a fast heart rhythm while you were hospitalized, and you were started on an IV medication called Amiodarone which helped to control your heart rate. You were taken off this medication on 09/23 and maintained a good heart rate without the medication. You will be discharged in improved, stable condition on 09/24/2020. You should continue to take all of your home medications as prescribed. You should also follow up with your anti-coagulation clinic for ongoing monitoring while on Warfarin. You should also follow up with your PCP and Senior Sales Operations Analyst regarding this hospitalization. We hope you continue to feel better. It was a pleasure to help provide your care while you were hospitalized. Pending Studies at Discharge: No Stand-Alone Forms: My [facility], Smoking Cessation Medications and DC Order Prescriptions: Continued clopidogrel [Plavix] 75 mg Tablet 75 mg PO QAM RF: 0 pantoprazole [Protonix] 40 mg Tablet,Delayed Release (Dr/Ec) 40 mg PO QAM RF: 0 nitroglycerin [Nitrostat] 0.4 mg Tablet, Sublingual 0.4 mg Sublingual DIRECTED PRN (Reason: Chest Pain) RF: 0 metoprolol succinate [Toprol XL] 25 mg Tablet Extended Release 24 Hr 25 mg PO QAM RF: 0 epinephrine [EpiPen 2-Percy] 0.3 mg/0.3 mL Auto-Injector 0.3 mg IM DIRECTED PRN (Reason: Allergic Reaction) RF: 0 multivitamin with minerals Tablet 1 tab PO QAM RF: 0 ranolazine [Ranexa] 500 mg Tablet Extended Release 12 Hr 500 mg PO Q12H RF: 0 warfarin 6 mg tablet 6 mg PO DAILY RF: 0 ferrous sulfate [FeroSul] 325 mg (65 mg iron) tablet 325 mg PO BID RF: 0 spironolactone [Aldactone] 25 mg tablet 12.5 mg PO HS RF: 0 ergocalciferol (vitamin D2) [Drisdol] 1,250 mcg (50,000 unit) capsule 50,000 unit PO MO Qty: 12 RF: 0 oxcarbazepine [Trileptal] 300 mg tablet 300 mg PO QID Qty: 360 RF: 1 gabapentin 300 mg capsule 300 mg PO QID 90 Days Qty: 360 RF: 1 baclofen 10 mg tablet 10 mg PO TID PRN (Reason: Muscle Spasm/face pain) Qty: 90 RF: 1 magnesium oxide 400 mg (241.3 mg magnesium) Tablet 400 mg PO HS Qty: 30 RF: 0 furosemide [Lasix] 20 mg tablet 20 mg PO BID RF: 0 isosorbide mononitrate 60 mg Tablet Extended Release 24 Hr 60 mg PO QAM Qty: 30 RF: 0 acetaminophen [Tylenol Extra Strength] 500 mg Tablet 500 mg PO Q6H PRN (Reason: Pain) RF: 0 isosorbide mononitrate 30 mg tablet extended release 24 hr 30 mg PO HS RF: 0 amlodipine 5 mg tablet 5 mg PO DAILY RF: 0 potassium chloride 20 mEq tablet,ER particles/crystals 20 meq PO BID RF: 0 Discharge Orders: Discharge Order (Routine); Ordered 09/24/20 Ordered By: Myron Stevenson/Other Patient Handouts: Heart Failure Making Changes to ..., Eating Heart-Healthy Foods Admission Data Admit Date/Time: 09/22/20 22:41 Attending Provider: Mali Webster Admit Provider: Cecil Franklin Primary Care Provider: Julius Zamora Other Providers: Abel Ferrara ; Val Rowell Other Interventions: Discharge Summary Assessment (RN) Last Done: 09/24/20 11:00 Supervising Physician Co-Signing Physician Notes Resident Physician Supervision Note: I independently interviewed and examined the patient and verified the arias history and physical, reviewed labs and image studies and agree with resident Dr. Medrano findings and care plan. Resident Activity Tracking Resident Involvement: Resident Care Provided Care Provided: Adult Hospital Medicine
--- NOTE | 2020-09-24 11:44 | Cardiology Progress Note ---
Date of Service September 24, 2020 Assessment & Plan (1) Acute diastolic CHF (congestive heart failure): (2) Chronic stable angina: (3) Pacemaker: (4) Coronary artery disease: (5) S/P TAVR (transcatheter aortic valve replacement): Complex patient admitted with mildly decompensated CHF (similar to March 2020), immediately diuresed the night of admission (09/22/2020) and has felt well since yesterday morning. Hemodynamics are favorable and she appears euvolemic. Telemetry benign, as noted the wide-complex rhythm in the ER appeared to be a ventricular paced rhythm at 110-120 bpm (same morphology as her ventricular paced beats). No dysrhythmias off amiodarone overnight. Echocardiogram similar to baseline, there is suggestion of a small bioprosthetic aortic valve perivalvular leak, this is unlikely to be clinically significant. Okay for discharge. Routine follow-up with Dr. Clark. Admission and Anticipated Discharge Date Admission Date: September 22, 2020 Subjective Patient feels well this morning. No chest pain, dyspnea, or other complaints. Rhythm predominantly sinus with ventricular pacing, no dysrhythmias. Hemodynamics favorable. Weight stable, I/O -1173 Physical Exam Physical Exam: Appears comfortable. BP normotensive. Pulse 64 bpm. Skin: no generalized lesions. HEENT: unremarkable. Neck: Jugular venous pulse at the clavicle at 90 degrees. Lungs: clear bilaterally. Cardiac: regular rhythm with occasional ectopy, 2/6 right upper sternal border systolic ejection murmur, 2/6 apical holosystolic murmur, intact aortic closure sound. Abdomen: benign. Extremities: 1+ pretibial edema with chronic stasis changes (hyperpigmented right lower extremity). Neurologic: normal affect and conversation, nonfocal. Results & Data ([facility]) Vital Signs (Past 12 Hours) Vital Signs Temp Pulse Resp BP Pulse Ox 09/24/20 11:00 98.4 F 66 18 119/68 95 09/24/20 07:23 98.4 F 66 18 119/68 95 09/24/20 03:20 97.9 F 60 17 118/70 94 09/24/20 00:15 98.4 F 63 17 94 Laboratory Results Hemoglobin 11.6 with normal white count and platelet count. Normal electrolytes, BUN 25, creatinine 1.17 (21 and 1.03 yesterday). Troponin negative x3. Diagnostic Findings Echocardiogram 09/23/2020 showed EF 55 to 60%, very mild hypokinesis mid to distal anterior wall (noted previously), moderate LVH with basal thickening. Bioprosthetic aortic valve with expected transvalvular gradient and a small perivalvular leak, moderate mitral regurgitation, moderate pulmonary hypertension. Compared with 2019 study, small aortic bioprosthetic paravalvular leak is suggested, not felt to be clinically significant. Otherwise no change. PG Care Time/CCT Total # of Minutes Spent Total Time Spent with Patient: Total time spent is greater than 50% in coordination of care (as documented) at patient's floor/unit and/or counseling patient: Coding Level of Care Code 41190 Subseq Hosp Care Lvl 3 Diagnoses Acute diastolic CHF (congestive heart failure) I50.31 Chronic stable angina I20.8 Pacemaker Z95.0 Coronary artery disease I25.10 S/P TAVR (transcatheter aortic valve replacement) Z95.2
== END 2020-09-24 12:48 | disposition home or self-care (01) | DRG 291 ==
LOC: ED 19:36 → 2S 22:41 → SUATTDRO 22:41 → 2S 23:59

== ENCOUNTER 2020-11-27 16:13 | Observation (INO) ==
[2020-11-27 17:55] LABS: Partial Thromboplastin Ratio 1.4; Partial Thromboplastin Time 36.3 Seconds (21.0-31.0)
--- NOTE | 2020-11-27 17:56 | XRay Report ---
XR chest 1V portable HISTORY: Atypical Chest Pain COMPARISON: 09/22/2020. FINDINGS: The cardiac silhouette is moderately enlarged. There is diffuse interstitial/vascular thick ening consistent with mild pulmonary edema. Trace left pleural effusion persists. There is a right sh oulder prosthesis. There is a right dual-chamber pacemaker. Left axillary stent is noted. Advanced de generative changes within the left shoulder. IMPRESSION: Cardiomegaly with mild interstitial pulmonary edema and a trace left pleural effusion. This is simila r to the prior study. ACT 112: Negative or not required by law. Electronically signed by: Justin Lepe M.D. 11/27/2020 5:54 PM
[2020-11-27 18:02] LABS: Basophils # (auto) 0.02 K/uL (0-0.2); Basophils % (auto) 0.3 %; Eosinophils # (auto) 0.23 K/uL (0-0.5); Eosinophils % (auto) 3.9 %; Hematocrit (blood only) 37.6 % (37-47); Hemoglobin 12.2 g/dL (12.0-16.0); Immature Granulocytes # (auto) 0.01 K/uL (0.00-0.02); Immature Granulocytes % (auto) 0.2 %; Lymphocytes % (auto) 22.3 %; Mean Corpuscular Hemoglobin 30.7 pg (25-34); Mean Corpuscular Hgb Conc 32.4 g/dL (32-36); Mean Corpuscular Volume 94.5 fL (80-100); Mean Platelet Volume 10.5 fL (7.4-10.4); Monocytes # (auto) 0.57 K/uL (0.11-0.59); Monocytes % (auto) 9.8 %; Neutrophils % (auto) 63.5 %; Platelet Count 150 K/uL (130-400); RDW Coefficient of Variation 14.1 % (11.5-14.5); RDW Standard Deviation 48.8 fL (36.4-46.3); Red Blood Count 3.98 M/uL (4.2-5.4); White Blood Count 5.83 K/uL (4.8-10.8)
--- NOTE | 2020-11-27 18:17 | CT Scan Report ---
HEAD CT NONCONTRAST CT DOSE: 537.48 mGy.cm HISTORY: dizziness TECHNIQUE: Multiaxial CT images of the head were performed without the use of intravenous contrast. A utomated exposure control was utilized for this study. A dose lowering technique was utilized adheri ng to the principles of ALARA. Comparison: 04/20/2020. Findings: The paranasal sinuses and mastoid air cells are clear. The calvarium and skull base are int act. There is no mass, hematoma, midline shift, acute infarct. White matter hypodensity is nonspecifi c but suggestive of microvascular ischemic change. The ventricles and sulci demonstrate mild age-rela alexa involutional changes. 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 Impression: No significant change compared to the prior study. No acute intracranial abnormality. ACT 112: Negative or not required by law. Electronically signed by: Justin Lepe M.D. 11/27/2020 6:15 PM
[2020-11-27 18:24] LABS: Albumin Level 3.1 gm/dl (3.4-5.0); BUN Creatinine Ratio 25.4 (10-20); Creatinine Clr Calc Pharmacy 40.3 ml/min; Est GFR (African American) 61.2 ml/min; Est GFR (Non-African American) 52.8 ml/min; Potassium 4.6 mmol/L (3.5-5.1)
[2020-11-27 18:28] LABS: Albumin Globulin Ratio 0.8 (0.9-2); Bilirubin,Total 0.3 mg/dl (0.2-1); Globulin 3.9 gm/dl (2.5-4.0); Troponin I 0.026 ng/ml (0-0.045)
[2020-11-27 19:08] LABS: INR 2.8 (0.9-1.1); Prothrombin Time 25.8 Seconds (9.0-12.0)
[2020-11-27] MEDS ORDERED: FUROSEMIDE 20 MG TAB PO STA (20:58)
--- NOTE | 2020-11-27 21:46 | History & Physical Report ---
Date of Service November 27, 2020 Assessment & Plan (1) Chest pain: Plan: Mrs. Ely is an 89 yo with an extensive cardiovascular history who was sent to the ED for chest pain, admitted for ACS rule out. - Heart Score of 4, moderate risk - initial trop detectable but not elevated at 0.026. Upon chart review, this appears to be patient's baseline. Trend serial levels - EKG showing a ventricularly paced rhythm with an old LBBB- Sgarbossa criteria 0. - will hold off on echo + cardiology consult at this time - continue home ranexa, plavix, imdur, and metoprolol. Of note, patient not on KOBY/ARB (may be due to underlying stage II CKD) - low suspicion of cardiac etiology - consider GI, MSK causes (2) CHF (congestive heart failure): Plan: - Pro BNP 2359 on admission; chart review reveals consistent elevation - CXR showing cardiomegaly with mild interstitial pulmonary edema and trace a left pleural effusion - continue home dose lasix 20mg BID + Kcl supplement and spironolactone - given reported dyspnea, will give additional 20mg lasix - trend BMP (3) Cellulitis of right lower extremity: Plan: - started on oral Augmentin course by outpatient PCP - continue course as directed - on exam, there does not appear to be any erythema (4) Trigeminal neuralgia: Plan: - continue home dose oxycarbemazepine (5) Chronic anticoagulation: Plan: - due to history of pulmonary embolism and bioprosthetic valve placement - continue coumadin - INR at 2.8 on admission, at goal (6) Anemia: Plan: - history of - Hgb normal on admission - continue home oral iron supplement Diet: low sodium, heart healthy DVT ppx: On Coumadin Dispo: Med/tele Code: Conditional, Okay with chest compressions, does not want cardiac defibril lation or intubation History of Present Illness Primary Care Provider: Julius Zamora MD Mrs. Ely is an 89 yo woman with an extensive cardiovascular history include CAD (s/p PCI with drug eluting stent placement), diastolic CHF, pacemaker and ICD placement, s/p TAVR with bioprosthetic valve placement, and a pulmonary embolism (chronically anticoagulated on coumadin) who was referred to the [facility] ED by her outpatient provider for evaluation of new onset chest pain. Mrs. Ely was seen in family medicine clinic earlier this afternoon - it was a routine follow up visit for right lower extremity cellulitis. She was started on a oral Augmentin course 4 days ago. During the visit, Mrs. Ely told her provider that she had been experienced central chest pain since about 10am in the morning. She is unsure of exactly when it came on - ie while at rest or walking. She does note being under some increased stress at the time (because a railroad car painter was coming to the house). She endorsed associated dyspnea on exertion and generalized weakness. The pain was located below the sternum/epigastrium - it did not radiate down the left arm or up the jaw. There was no associated nausea or diaphoresis. An in-office EKG was down at her outpatient provider's office - documentation indicates concern for new 2mm ST segment elevation in the inferolateral leads, which prompted her ems transport to the [facility] ED. En route, she was given 324mg ASA and 3 nitroglycerin tabs, which reportedly resolved her chest pain. However, in the ED, she reported the pain intermittently recurring. On arrival, her vitals were normal. Her CBC was normal. Her INR was 2.8. Her Pro-BNP was elevated to 2359. Her troponin was detectable at 0.026. Her Lipase was not elevated. Her liver function was normal. Her Cr was 0.96, BUN was mildly elevated to 24. EKG appeared identical to one faxed from outpatient office. CXR showing cardiomegaly with mild interstitial pulmonary edema and trace a left pleural effusion. Head CT showing no acute pathology. Allergies Allergy/AdvReac Type Severity Reaction Status Date / Time bee venom protein (honey bee) Allergy Severe ANAPHYLAXIS Verified 11/27/20 17:59 sodium lauryl sulfate Allergy Intermediate HIVES & Verified 11/27/20 17:59 WELTS Home Medications Medication Instructions Recorded Confirmed Type clopidogrel 75 mg tablet (Plavix) 75 mg PO QAM 01/16/18 11/27/20 History epinephrine 0.3 mg/0.3 mL 0.3 mg IM DIRECTED PRN 01/16/18 11/27/20 History injection, auto-injector (EpiPen 2-Percy) metoprolol succinate 25 mg 25 mg PO QAM 18 11/27/20 History tablet,extended release 24 hr (Toprol XL) multivitamin with minerals 1 tab PO QAM 01/16/18 11/27/20 History nitroglycerin 0.4 mg sublingual 0.4 mg SUBLINGUAL DIRECTED PRN 01/16/18 11/27/20 History tablet (Nitrostat) pantoprazole 40 mg tablet,delayed 40 mg PO QAM 01/16/18 11/27/20 History release (Protonix) ranolazine 500 mg tablet,extended 500 mg PO Q12H 01/16/18 11/27/20 History release,12 hr (Ranexa) magnesium oxide 400 mg (241.3 mg 400 mg PO HS #30 tab 07/31/18 11/27/20 Rx magnesium) tablet isosorbide mononitrate 60 mg 60 mg PO QAM #30 tab 02/28/19 11/27/20 Rx tablet,extended release 24 hr acetaminophen 500 mg tablet 500 mg PO Q6H PRN 07/01/19 11/27/20 History (Tylenol Extra Strength) isosorbide mononitrate 30 mg 30 mg PO HS 07/01/19 11/27/20 History tablet,extended release 24 hr furosemide 20 mg tablet (Lasix) 20 mg PO BID tab 07/28/19 11/27/20 History ferrous sulfate 325 mg (65 mg 325 mg PO BID 10/19/19 11/27/20 History iron) tablet (FeroSul) baclofen 10 mg tablet 10 mg PO TID PRN #90 tab 10/22/19 11/27/20 Rx spironolactone 25 mg tablet 12.5 mg PO HS tab 04/11/20 11/27/20 History (Aldactone) oxcarbazepine 300 mg tablet 300 mg PO QID #360 tab 06/15/20 11/27/20 Rx (Trileptal) gabapentin 300 mg capsule 300 mg PO QID 90 Days #360 cap 07/05/20 11/27/20 Rx amlodipine 5 mg tablet 5 mg PO DAILY 09/22/20 11/27/20 History potassium chloride 20 mEq 20 meq PO BID 09/22/20 11/27/20 History tablet,extended release(part/cryst) warfarin 6 mg tablet See Rx Instructions PO UD #100 tab 11/17/20 11/27/20 Rx amoxicillin 875 mg-potassium 1 tab PO BID 11/27/20 11/27/20 History clavulanate 125 mg tablet ergocalciferol (vitamin D2) 1,250 50,000 unit PO MONTHLY 11/27/20 11/27/20 History mcg (50,000 unit) capsule (Drisdol) Past Med/Surg History Medical History Aortic aneurysm Breast cancer Chest pain Chronic kidney disease, stage II (mild) Closed fracture of zygomatic arch Depression Dyslipidemia FH: total knee replacement H/O esophageal reflux HTN (hypertension) Hypertensive emergency Hyponatremia Hypoxia Ileostomy in place Pulmonary embolism Trigeminal neuralgia Vitamin D deficiency Wide-complex tachycardia Surgical History H/O cardiac catheterization H/O total colectomy H/O: hysterectomy S/P breast lumpectomy S/P shoulder surgery Family History Mother Cancer Acute myocardial infarction Uterine cancer Hypertension Father Cancer Prostate cancer Social History Smoking Status: Never smoker Second Hand Exposure: No; Do You Dip or Chew Tobacco: No; Hx Alcohol Use: No Hx Substance Use: No Preferred Language: Yakut Communication Ability: Effective Adult Education Manager Required: No Beliefs That Will Affect Care: None Current Living Situation: Other Current Living Situation Comment: lives with grandson Feels Safe at Home: Yes Safety Concerns: Feels Safe At This Time Assistive Devices: Walker Review of Systems Review of Systems: All systems reviewed & are unremarkable except as noted in HPI & below Physical Exam Constitutional: WD/WN, vitals as above cooperative and comfortable; no acute distress Eyes: + anicteric sclerae ENMT: external ear and nose normal, oropharynx normal Neck: trachea midline Respiratory: normal respiratory effort, lungs clear to auscultation no cough Cardiovascular: Rate/Rhythm: regular rate and regular rhythm Heart Sounds: normal S1, normal S2 and + murmur (systolic ejection ) Extremities: + pedal edema (+2 b/l ) Chest (Breasts): Chest: + pacemaker Additional Comments: Chest wall non- tender to palpation Gastrointestinal (Abdomen): normal bowel sounds, soft, nontender, no hepatosplenomegaly Musculoskeletal: Head/Neck/Chest: normocephalic and head atraumatic Skin: no rashes, warm and dry + brawny discoloration of R LE Neurologic: moves all extremities Psychiatric: A+Ox3, euthymic affect Results & Data Results & Data ([facility]) Vital Signs (Past 12 Hours) Vital Signs Temp Pulse Pulse Resp BP BP Pulse Ox 11/27/20 21:01 80 20 148/104 H 11/27/20 20:30 71 20 140/81 11/27/20 20:00 65 22 134/77 11/27/20 18:03 62 18 94 11/27/20 16:54 93 11/27/20 16:21 37.2 C 69 69 16 137/86 137/86 93 Supervising Physician Co-Signing Physician Notes Patient seen and examined, chart reviewed, case discussed with Dr. Deleon and I agree with her assessment and plan as documented above. In brief, patient is an 89yo female presenting with chest pain. Patient with history of CAD s/p PCI with SYLVIE, CHF, AICD and bioproshetic AVR. Patient seen in clinic today with similar complaints - EKG with concern for ST elevation in inferolateral leads On exam she is afebrile, HD stable, NAD Skin - no rash HEENT - NC/AT, PERRL Heart - +S1/S2, regular, 3/6 LEROY across precordium Lungs - +Crackles right base Abd - +BS, soft, NT/ND Ext +edema Labs and images reviewed Assessment/Plan -trend troponin -contiue home medications -remainder of plan as above Resident Activity Tracking Resident Involvement: Resident Care Provided Care Provided: Adult Hospital Medicine (1) CHF (congestive heart failure) Heart failure chronicity: acute Heart failure type: unspecified Qualified Code(s): I50.9 - Heart failure, unspecified (2) Chest pain Chest pain type: unspecified Qualified Code(s): R07.9 - Chest pain, unspecified
[2020-11-27] MEDS ORDERED: ONDANSETRON INJ 2 MG/ML 2 ML VIAL IV PRN (22:36)
[2020-11-27] MEDS ORDERED: ACETAMINOPHEN 325 MG TAB PO PRN (22:36)
[2020-11-27] MEDS ORDERED: NITROGLYCERIN SL 0.4 MG/TAB TAB SL PRN (22:36)
[2020-11-27] MEDS: RANOLAZINE 500 MG ER TAB PO SCH (23:50)
[2020-11-27] MEDS: OXcarbazepine 150 MG TABLET PO SCH (23:51)
[2020-11-27] MEDS: SPIRONOLACTONE 12.5 MG TAB PO SCH (23:51)
[2020-11-27] MEDS: GABAPENTIN 300 MG CAP PO SCH (23:51)
[2020-11-27] MEDS: ISOSORBIDE MONO EXTENDED REL 30 MG TABCR PO SCH (23:52)
[2020-11-27] MEDS: MAGNESIUM OXIDE 400 MG TAB PO SCH (23:52)
[2020-11-27] MEDS: FUROSEMIDE 20 MG TAB PO SCH (23:52)
[2020-11-27] MEDS: POTASSIUM CHLORIDE CRTAB 20 MEQ TABCR PO SCH (23:53)
[2020-11-27] MEDS: FERROUS SULFATE 325 MG TAB PO SCH (23:53)
--- NOTE | 2020-11-28 00:52 | Emergency Department Note ---
History of Present Illness General Chief Complaint: Chest Pain Time Seen by Provider: 11/27/20 17:06 History of Present Illness Provider Complaint: chest pain Onset (ago): day(s) 1 Duration: improved Onset: during exertion Pain Location: substernal Maximum Pain Intensity: 4 Current Pain Intensity: 1 Quality: + aching and + heaviness Relieved By: + nitroglycerin and + rest Exacerbated By: + exertion Context: no recent illness, no recent surgery, no recent immobilization, no recent travel, no trauma/injury, no new medications or no history of DVT/PE Associated symptoms: no nausea, no vomiting, no diaphoresis, no dyspnea, no sense of impending doom, no syncope, no palpitations, no fever, no cough or no leg swelling Home Medications Medication Instructions Recorded Confirmed Type clopidogrel 75 mg tablet (Plavix) 75 mg PO QAM 01/16/18 11/27/20 History epinephrine 0.3 mg/0.3 mL 0.3 mg IM DIRECTED PRN 01/16/18 11/27/20 History injection, auto-injector (EpiPen 2-Percy) metoprolol succinate 25 mg 25 mg PO QAM 01/16/18 11/27/20 History tablet,extended release 24 hr (Toprol XL) multivitamin with minerals 1 tab PO QAM 01/16/18 11/27/20 History nitroglycerin 0.4 mg sublingual 0.4 mg SUBLINGUAL DIRECTED PRN 01/16/18 11/27/20 History tablet (Nitrostat) pantoprazole 40 mg tablet,delayed 40 mg PO QAM 01/16/18 11/27/20 History release (Protonix) ranolazine 500 mg tablet,extended 500 mg PO Q12H 01/16/18 11/27/20 History release,12 hr (Ranexa) magnesium oxide 400 mg (241.3 mg 400 mg PO HS #30 tab 07/31/18 11/27/20 Rx magnesium) tablet isosorbide mononitrate 60 mg 60 mg PO QAM #30 tab 02/28/19 11/27/20 Rx tablet,extended release 24 hr acetaminophen 500 mg tablet 500 mg PO Q6H PRN 07/01/19 11/27/20 History (Tylenol Extra Strength) isosorbide mononitrate 30 mg 30 mg PO HS 07/01/19 11/27/20 History tablet,extended release 24 hr furosemide 20 mg tablet (Lasix) 20 mg PO BID tab 07/28/19 11/27/20 History ferrous sulfate 325 mg (65 mg 325 mg PO BID 10/19/19 11/27/20 History iron) tablet (FeroSul) baclofen 10 mg tablet 10 mg PO TID PRN #90 tab 10/22/19 11/27/20 Rx spironolactone 25 mg tablet 12.5 mg PO HS tab 04/11/20 11/27/20 History (Aldactone) oxcarbazepine 300 mg tablet 300 mg PO QID #360 tab 06/15/20 11/27/20 Rx (Trileptal) gabapentin 300 mg capsule 300 mg PO QID 90 Days #360 cap 07/05/20 11/27/20 Rx amlodipine 5 mg tablet 5 mg PO DAILY 09/22/20 11/27/20 History potassium chloride 20 mEq 20 meq PO BID 09/22/20 11/27/20 History tablet,extended release(part/cryst) warfarin 6 mg tablet See Rx Instructions PO UD #100 tab 11/17/20 11/27/20 Rx amoxicillin 875 mg-potassium 1 tab PO BID 11/27/20 11/27/20 History clavulanate 125 mg tablet ergocalciferol (vitamin D2) 1,250 50,000 unit PO MONTHLY 11/27/20 11/27/20 History mcg (50,000 unit) capsule (Drisdol) Allergies Allergy/AdvReac Type Severity Reaction Status Date / Time bee venom protein (honey bee) Allergy Severe ANAPHYLAXIS Verified 11/27/20 17:59 sodium lauryl sulfate Allergy Intermediate HIVES & Verified 11/27/20 17:59 WELTS Past Med/Surg History Medical History Aortic aneurysm Breast cancer Chest pain Chronic kidney disease, stage II (mild) Closed fracture of zygomatic arch Depression Dyslipidemia FH: total knee replacement H/O esophageal reflux HTN (hypertension) Hypertensive emergency Hyponatremia Hypoxia Ileostomy in place Pulmonary embolism Trigeminal neuralgia Vitamin D deficiency Wide-complex tachycardia Surgical History H/O cardiac catheterization H/O total colectomy H/O: hysterectomy S/P breast lumpectomy S/P shoulder surgery Family History Mother Cancer Acute myocardial infarction Uterine cancer Hypertension Father Cancer Prostate cancer Social History Smoking Status: Never smoker Second Hand Exposure: No; Do You Dip or Chew Tobacco: No; Hx Alcohol Use: No Hx Substance Use: No Preferred Language: [place] Communication Ability: Effective Slip Seat Coverer Required: No Beliefs That Will Affect Care: None Current Living Situation: Other Current Living Situation Comment: lives with grandson Feels Safe at Home: Yes Safety Concerns: Feels Safe At This Time Assistive Devices: Walker Review of Systems A total of 10 systems reviewed and were otherwise negative Physical Exam Vital Signs Vital Signs - 24 hr 11/27/20 16:21 11/27/20 16:54 11/27/20 18:03 Temperature 37.2 C Temperature Source Oral Pulse Rate 69 Pulse Rate [Apical] 69 62 Respiratory Rate 16 18 Respiratory Effort / Characteristics Non-Labored Non-Labored Respiratory Depth Normal Normal Blood Pressure 137/86 Blood Pressure [Right Arm] 137/86 Blood Pressure Mean 103 Blood Pressure Mean [Right Arm] 103 Pulse Oximetry 93 93 94 Oxygen Delivery Method Room Air Room Air Room Air Sepsis Recent Fever Within 48 Hours No Sepsis New/Unexplained Change in Mental Status No Sepsis Action Taken by Nursing No Action Required 11/27/20 20:00 11/27/20 20:30 Temperature Temperature Source Pulse Rate 65 71 Pulse Rate [Apical] Respiratory Rate 22 20 Respiratory Effort / Characteristics Respiratory Depth Blood Pressure 134/77 140/81 Blood Pressure [Right Arm] Blood Pressure Mean 96 100 Blood Pressure Mean [Right Arm] Pulse Oximetry Oxygen Delivery Method Sepsis Recent Fever Within 48 Hours Sepsis New/Unexplained Change in Mental Status Sepsis Action Taken by Nursing Physical Exam GENERAL: She is oriented to person, place, and time. She appears well-developed and well-nourished. She does not appear distressed. HENT: Exam performed. -Head: Normocephalic and atraumatic. -Right Ear: External ear normal. No mastoid tenderness. -Left Ear: External ear normal. No mastoid tenderness. -Mouth/Throat: The oropharynx is clear and moist. No trismus in the jaw. No dental abscesses or uvula swelling. No oropharyngeal exudate or tonsillar abscesses. EYES: Conjunctivae and EOM are normal. Pupils are equal, round, and reactive to light. Right eye exhibits no discharge. Left eye exhibits no discharge. No scleral icterus. NECK: Normal range of motion. Neck supple. No JVD present. No spinous process tenderness present. No carotid bruit present. No rigidity. No tracheal deviation and normal range of motion present. No Brudzinski's sign and no Kernig's sign noted. CV: Normal rate, regular rhythm, normal heart sounds and intact distal pulses. There is no peripheral edema. Palpable radial pulses bue. PULM/CHEST: Effort normal and breath sounds normal. No respiratory distress. No stridor. She has no wheezes. She has no rales. -Chest Wall: She exhibits no tenderness. ABD: The abdomen is soft. Bowel sounds are normal. She has no distension. No mass is present. There is no tenderness. There is no rebound, no guarding, no Rodriges's sign and no tenderness at McBurney's point. Rovsig negative MUSC/SKEL: Normal range of motion. There is no peripheral edema, tenderness or deformity. LYMPH: No cervical adenopathy. NEURO: She is alert and oriented to person, place, and time. She has normal strength. No cranial nerve deficit or sensory deficit. Coordination and gait normal. GCS eye subscore is 4. GCS verbal subscore is 5. GCS motor subscore is 6. Cerebellar tests wnl. SKIN: Skin is warm and dry. She is not diaphoretic. PSYCH: She has a normal mood and affect. Behavior is normal. Judgment and thought content normal. Course Course 170: The patient was evaluated in room C11. A complete history and physical exam was performed Cardiac monitoring: An order was placed for continuous cardiac monitoring. The monitor shows a rate of 70 with paced rhythm 1914: Vital signs stable. Labs within normal limits with exception of a proBNP elevation of 2359. INR is therapeutic. Troponin negative. Patient will be admitted to the [facility] hospitalist team Dr. Rowell notified. Administered Medications Ferrous Sulfate (Ferrous Sulfate 325 Mg Tab) 325 mg PO BID [facility] Stop: 12/27/20 22:35 Last Admin: 11/27/20 23:53 Dose: 325 mg Documented by: [id number] Furosemide (Furosemide 20 Mg Tab) 20 mg PO [id number] [facility] Stop: 12/27/20 22:35 Last Admin: 11/27/20 23:52 Dose: 20 mg Documented by: [id number] Gabapentin (Gabapentin 300 Mg Cap) 300 mg PO QID [facility] Stop: 12/27/20 22:35 Last Admin: 11/27/20 23:51 Dose: 300 mg Documented by: [id number] Isosorbide Mononitrate (Isosorbide [place] Extended Rel 30 Mg Tabcr) 30 mg PO HS [facility] Stop: 12/27/20 22:35 Last Admin: 11/27/20 23:52 Dose: 30 mg Documented by: [id number] Magnesium Oxide (Magnesium Oxide 400 Mg Tab) 400 mg PO HS [facility] Stop: 12/27/20 22:35 Last Admin: 11/27/20 23:52 Dose: 400 mg Documented by: [id number] Oxcarbazepine (Oxcarbazepine 150 Mg Tablet) 300 mg PO QID [facility] Stop: 12/27/20 22:35 Last Admin: 11/27/20 23:51 Dose: 300 mg Documented by: [id number] Potassium Chloride (Potassium Chloride Crtab 20 Meq Tabcr) 20 meq PO BID [facility] Stop: 12/27/20 22:35 Last Admin: 11/27/20 23:53 Dose: 20 meq Documented by: [id number] Ranolazine (Ranolazine 500 Mg Er Tab) 500 mg PO BID [facility] Stop: 12/27/20 22:35 Last Admin: 11/27/20 23:50 Dose: 500 mg Documented by: [id number] Spironolactone (Spironolactone 12.5 Mg Tab) 12.5 mg PO HS [facility] Stop: 12/27/20 22:35 Last Admin: 11/27/20 23:51 Dose: 12.5 mg Documented by: [id number] Discontinued Medications Furosemide (Furosemide 20 Mg Tab) 20 mg PO ONE STA Stop: 11/27/20 20:59 Last Admin: 11/27/20 21:45 Dose: 20 mg Documented by: [id number] Medical Decision Making Laboratory Data Result diagrams: 11/27/20 17:50 11/27/20 17:50 Labs: Lab Results 11/27/20 11/27/20 11/27/20 Range/Units 17:12 17:12 17:50 WBC 5.83 (4.8-10.8) K/uL RBC 3.98 L (4.2-5.4) M/uL Hgb 12.2 (12.0-16.0) g/dL Hct 37.6 (37-47) % MCV 94.5 (80-100) fL MCH 30.7 (25-34) pg MCHC 32.4 (32-36) g/dL RDW Std Deviation 48.8 H (36.4-46.3) fL RDW Coeff of Boy 14.1 (11.5-14.5) % Plt Count 150 (130-400) K/uL MPV 10.5 H (7.4-10.4) fL Immature Gran % (Auto) 0.2 % Neut % (Auto) 63.5 % Lymph % (Auto) 22.3 % [place] % (Auto) 9.8 % Eos % (Auto) 3.9 % Baso % (Auto) 0.3 % Neut # (Auto) 3.70 (1.4-6.5) K/uL Lymph # (Auto) 1.30 (1.2-3.4) K/uL [place] # (Auto) 0.57 (0.11-0.59) K/uL Eos # (Auto) 0.23 (0-0.5) K/uL Baso # (Auto) 0.02 (0-0.2) K/uL Immature Gran # (Auto) 0.01 (0.00-0.02) K/uL PT 25.8 H (9.0-12.0) Seconds INR 2.8 H (0.9-1.1) APTT 36.3 H (21.0-31.0) Seconds PTT Ratio 1.4 Sodium (136-145) mmol/L Potassium (3.5-5.1) mmol/L Chloride (98-107) mmol/L Carbon Dioxide (21-32) mmol/L Anion Gap (3-11) BUN (7-18) mg/dl Creatinine (0.6-1.2) mg/dl Est Cr Clr Drug Dosing ml/min Est GFR ( Amer) ml/min Est GFR (Non-Af Amer) ml/min BUN/Creatinine Ratio (10-20) Glucose (70-99) mg/dl Calcium (8.5-10.1) mg/dl Total Bilirubin (0.2-1) mg/dl AST (15-37) U/L ALT (12-78) U/L Alkaline Phosphatase (45-117) U/L Troponin I (0-0.045) ng/ml NT-Pro-B Natriuret Pep (0-1800) pg/ml Total Protein (6.4-8.2) gm/dl Albumin (3.4-5.0) gm/dl Globulin (2.5-4.0) gm/dl Albumin/Globulin Ratio (0.9-2) Lipase (73-393) U/L COVID-19 Eval Order SARS-CoV-2 (PCR) (Negative) 11/27/20 11/27/20 11/27/20 Range/Units 17:50 17:50 19:24 WBC (4.8-10.8) K/uL RBC (4.2-5.4) M/uL Hgb (12.0-16.0) g/dL Hct (37-47) % MCV (80-100) fL MCH (25-34) pg MCHC (32-36) g/dL RDW Std Deviation (36.4-46.3) fL RDW Coeff of Boy (11.5-14.5) % Plt Count (130-400) K/uL MPV (7.4-10.4) fL Immature Gran % (Auto) % Neut % (Auto) % Lymph % (Auto) % [place] % (Auto) % Eos % (Auto) % Baso % (Auto) % Neut # (Auto) (1.4-6.5) K/uL Lymph # (Auto) (1.2-3.4) K/uL [place] # (Auto) (0.11-0.59) K/uL Eos # (Auto) (0-0.5) K/uL Baso # (Auto) (0-0.2) K/uL Immature Gran # (Auto) (0.00-0.02) K/uL PT (9.0-12.0) Seconds INR (0.9-1.1) APTT (21.0-31.0) Seconds PTT Ratio Sodium 138 (136-145) mmol/L Potassium 4.6 (3.5-5.1) mmol/L Chloride 109 H (98-107) mmol/L Carbon Dioxide 25 (21-32) mmol/L Anion Gap 4.0 (3-11) BUN 24 H (7-18) mg/dl Creatinine 0.96 (0.6-1.2) mg/dl Est Cr Clr Drug Dosing 40.3 ml/min Est GFR ( Amer) 61.2 ml/min Est GFR (Non-Af Amer) 52.8 ml/min BUN/Creatinine Ratio 25.4 H (10-20) Glucose 96 (70-99) mg/dl Calcium 9.0 (8.5-10.1) mg/dl Total Bilirubin 0.3 (0.2-1) mg/dl AST 22 (15-37) U/L ALT 22 (12-78) U/L Alkaline Phosphatase 109 (45-117) U/L Troponin I 0.026 (0-0.045) ng/ml NT-Pro-B Natriuret Pep 2359 H Cancelled (0-1800) pg/ml Total Protein 7.0 (6.4-8.2) gm/dl Albumin 3.1 L (3.4-5.0) gm/dl Globulin 3.9 (2.5-4.0) gm/dl Albumin/Globulin Ratio 0.8 L (0.9-2) Lipase 98 (73-393) U/L COVID-19 Eval Order Covid19 at [facility] SARS-CoV-2 (PCR) (Negative) 11/27/20 Range/Units 19:24 WBC (4.8-10.8) K/uL RBC (4.2-5.4) M/uL Hgb (12.0-16.0) g/dL Hct (37-47) % MCV (80-100) fL MCH (25-34) pg MCHC (32-36) g/dL RDW Std Deviation (36.4-46.3) fL RDW Coeff of Boy (11.5-14.5) % Plt Count (130-400) K/uL MPV (7.4-10.4) fL Immature Gran % (Auto) % Neut % (Auto) % Lymph % (Auto) % [place] % (Auto) % Eos % (Auto) % Baso % (Auto) % Neut # (Auto) (1.4-6.5) K/uL Lymph # (Auto) (1.2-3.4) K/uL [place] # (Auto) (0.11-0.59) K/uL Eos # (Auto) (0-0.5) K/uL Baso # (Auto) (0-0.2) K/uL Immature Gran # (Auto) (0.00-0.02) K/uL PT (9.0-12.0) Seconds INR (0.9-1.1) APTT (21.0-31.0) Seconds PTT Ratio Sodium (136-145) mmol/L Potassium (3.5-5.1) mmol/L Chloride (98-107) mmol/L Carbon Dioxide (21-32) mmol/L Anion Gap (3-11) BUN (7-18) mg/dl Creatinine (0.6-1.2) mg/dl Est Cr Clr Drug Dosing ml/min Est GFR ( Amer) ml/min Est GFR (Non-Af Amer) ml/min BUN/Creatinine Ratio (10-20) Glucose (70-99) mg/dl Calcium (8.5-10.1) mg/dl Total Bilirubin (0.2-1) mg/dl AST (15-37) U/L ALT (12-78) U/L Alkaline Phosphatase (45-117) U/L Troponin I (0-0.045) ng/ml NT-Pro-B Natriuret Pep (0-1800) pg/ml Total Protein (6.4-8.2) gm/dl Albumin (3.4-5.0) gm/dl Globulin (2.5-4.0) gm/dl Albumin/Globulin Ratio (0.9-2) Lipase (73-393) U/L COVID-19 Eval Order SARS-CoV-2 (PCR) NEGATIVE (Negative) Imaging Data Chest x-ray: Radiologist's impression: Chest X-Ray 11/27/20 16:54 XR chest 1V portable HISTORY: Atypical Chest Pain COMPARISON: 09/22/2020. FINDINGS: The cardiac silhouette is moderately enlarged. There is diffuse interstitial/vascular thickening consistent with mild pulmonary edema. Trace left pleural effusion persists. There is a right shoulder prosthesis. There is a right dual-chamber pacemaker. Left axillary stent is noted. Advanced degen erative changes within the left shoulder. IMPRESSION: Cardiomegaly with mild interstitial pulmonary edema and a trace left pleural effusion. This is similar to the prior study. ACT 112: Negative or not required by law. Electronically signed by: Justin Lepe M.D. 11/27/2020 5:[address] 11/27/20 17:[address] DOSE: 537.48 mGy.cm HISTORY: dizziness TECHNIQUE: Multiaxial CT images of the head were performed without the use of in travenous contrast. Automated exposure control was utilized for this study. A dose lowering technique was utilized adhering to the principles of ALARA. Comparison: 04/20/2020. Findings: The paranasal sinuses and mastoid air cells are clear. The calvarium and skull base are intact. There is no mass, hematoma, midline shift, acute infarct. White matter hypodensity is nonspecific but suggestive of microvascular ischemic change. The ventricles and sulci demonstrate mild age-related involutional changes. 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 Impression: No significant change compared to the prior study. No acute intracranial abnormality. ACT 112: Negative or not required by law. Electronically signed by: Justin Lepe M.D. 11/27/2020 6:15 PM ECG Data Additional Comments: Paced rhythm with rate of 73. OK 176 QRS [address] elevation or ST depression. MDM Narrative Vital signs stable. Labs within normal limits with exception of a proBNP elevation of 2359. INR is therapeutic. Troponin negative. [facility]. Impression & Plan CHF (congestive heart failure), Chest pain Discharge Plan Visit Data Chief Complaint: Chest Pain ED Provider: Bobby Umana Discharge Problem: CHF (congestive heart failure), Chest pain Patient Disposition: Admitted As Inpatient Discharge Instructions Interventions: ED Discharge Assessment Last Done: 11/27/20 22:09 Discharge Problem: CHF (congestive heart failure) Qualifiers: Heart failure type: unspecified Heart failure chronicity: acute Qualified Code(s): I50.9 - Heart failure, unspecified Chest pain Qualifiers: Chest pain type: unspecified Qualified Code(s): R07.9 - Chest pain, unspecified
[2020-11-28] MEDS ORDERED: MELATONIN 3 MG TAB PO PRN (01:26)
[2020-11-28 03:39] LABS: INR 2.2 (0.9-1.1); Prothrombin Time 21.1 Seconds (9.0-12.0)
[2020-11-28 03:58] LABS: BUN Creatinine Ratio 25.8 (10-20); Calcium 9.1 mg/dl (8.5-10.1); Creatinine Clr Calc Pharmacy 38.9 ml/min; Est GFR (African American) 59.7 ml/min; Est GFR (Non-African American) 51.5 ml/min; Potassium 3.8 mmol/L (3.5-5.1); Troponin I 0.032 ng/ml (0-0.045)
[2020-11-28] MEDS: RANOLAZINE 500 MG ER TAB PO SCH ×2 (08:19→20:38)
[2020-11-28] MEDS: POTASSIUM CHLORIDE CRTAB 20 MEQ TABCR PO SCH ×2 (08:19→20:38)
[2020-11-28] MEDS: FUROSEMIDE 20 MG TAB PO SCH ×2 (08:19→16:46)
[2020-11-28] MEDS: METOPROLOL SUCC 25MG EXT REL TAB PO SCH (08:20)
[2020-11-28] MEDS: GABAPENTIN 300 MG CAP PO SCH ×4 (08:20→20:40)
[2020-11-28] MEDS: PANTOprazole 40 MG TAB PO SCH (08:20)
[2020-11-28] MEDS: OXcarbazepine 150 MG TABLET PO SCH ×4 (08:20→20:42)
[2020-11-28] MEDS: AMOXICILLIN/CLAVULANATE 875 MG TAB PO SCH ×2 (08:21→16:47)
[2020-11-28] MEDS: CLOPIDOGREL BISULFATE 75 MG TAB PO SCH (08:21)
[2020-11-28] MEDS: ISOSORBIDE MONO EXTENDED REL 60 MG TABCR PO SCH (08:21)
[2020-11-28] MEDS: amLODIPine BESYLATE 5 MG TAB PO SCH (08:21)
[2020-11-28] MEDS: FERROUS SULFATE 325 MG TAB PO SCH ×2 (10:06→20:40)
[2020-11-28] MEDS ORDERED: ISOSORBIDE MONO EXTENDED REL 30 MG TABCR PO ONE (14:10)
--- NOTE | 2020-11-28 14:12 | Hospitalist Progress Note ---
Date of Service November 28, 2020 Assessment & Plan (1) Angina at rest: Plan: patient's chest pain symptoms are c/w her chronic angina. however, the chest pain episodes have been more frequent in the last 48 hours than baseline. previous cath in 2018 with severe CAD. s/p RCA stent at that time. echo in September 2020 with LAD territory wall motion abnormality. I spoke with Dr Clark -- medical management only; she is not a cath candidate. Will attempt to increase imdur to 60mg BID. cont ranexa. cont plavix; add aspirin?? but then would be on asa/plavix/coumadin. hold on asa for now. cont metoprolol succinate. if the pain symptoms persist will consult Dr Clark formally. observe overnight. (2) CAD (coronary artery disease): Plan: as above (3) Hypertension: Plan: controlled (4) History of DVT of lower extremity: Plan: on coumadin daily INR therapeutic INR today at 2.2 (5) H/O ileostomy: Plan: no issues (6) Acute on chronic diastolic (congestive) heart failure: Plan: probable mild decompensation received extra lasix last night will give additional lasix today patient reports dry weight of 181 pounds (7) Cellulitis of right lower extremity: Plan: resolved finish augmentin course (8) History of pulmonary embolus (PE): Plan: coumadin INR 2.2 today (9) Trigeminal neuralgia: Plan: cont home meds (10) Hyperlipidemia: Plan: not on meds for such (11) Pacemaker: Plan: v-paced (12) S/P TAVR (transcatheter aortic valve replacement): Plan: noted echo with mild periprosthetic leak in October 09 (13) Chronic renal failure, stage 3b: Plan: baseline CrCl 30s bmp am Plan: updated grandson by phone today with whom she lives Admission and Anticipated Discharge Date Admission Date: November 27, 2020 Subjective patient states that following admission she had mild chest discomfort overnight, then had pain again this am. both episodes self-resolved -- did not need nitro SL. she also had mild dyspnea overnight - relieved with transient use of NC O2. she reports that the pain is very similar to chronic angina pain. she admits to using SL nitro on a fairly decent basis - usually every few weeks. the amount of SL nitro use in the last few days, however, is much higher than typical. she attributes some of the pain and dyspnea due to stress related to her roommate. "my roommate here has a lot of problems - I'm worried about her." telemetry - paced Review of Systems Review of Systems: gen - no fevers or chills; appetite ok CV - per HPI; mild orthopnea; mild edema pulm - no cough GI - no nausea, emesis or pain Physical Exam Physical Exam: gen - sitting in chair comfortably; pleasant neck - maybe mild JVD sitting upright in the chair mouth - MMM heart - RRR, s1 s2 lungs - bibasilar rales b/l abd - soft NT ND BS+; ileostomy in place right abdomen ext - 1+ edema b/l psych - a/o x 3 Results & Data Results & Data ([facility]) Vital Signs (Past 12 Hours) Vital Signs Temp Pulse Pulse Pulse Resp BP Pulse Ox 11/28/20 11:29 36.6 C 74 18 121/67 92 11/28/20 10:22 69 11/28/20 07:29 36.6 C 64 66 16 124/77 92 11/28/20 04:12 36.6 C 64 18 135/75 95 Laboratory Results trops all negative repeat trop this afternoon again negative Cr 0.9 Na, K wnl PG Care Time/CCT Total # of Minutes Spent Total Time Spent with Patient: Total time spent is greater than 50% in coordination of care (as documented) at patient's floor/unit and/or counseling patient: Coding Level of Care Code 69267 Subseq Obs Care Lvl 3 Diagnoses Angina at rest I20.8 CAD (coronary artery disease) I25.10 Hypertension I10 History of DVT of lower extremity Z86.718 H/O ileostomy Z98.890 Acute on chronic diastolic (congestive) heart failure I50.33 Cellulitis of right lower extremity L03.115 History of pulmonary embolus (PE) Z86.711 Trigeminal neuralgia G50.0 Hyperlipidemia E78.5 Pacemaker Z95.0 S/P TAVR (transcatheter aortic valve replacement) Z95.2 Chronic renal failure, stage 3b N18.32
--- NOTE | 2020-11-28 15:16 | Electrocardiogram Report ---
Test Reason : Blood Pressure : / mmHG Vent. Rate : 073 BPM Atrial Rate : 073 BPM P-R Int : 176 ms QRS Dur : 188 ms QT Int : 478 ms P-R-T Axes : 054 270 066 degrees QTc Int : 526 ms AV dual-paced rhythm Abnormal ECG When compared with ECG of 23-SEP-2020 06:06, Vent. rate has increased BY 9 BPM Confirmed by Vel Cedeno ([id number]) on 11/28/2020 3:15:52 PM Referred By: Julius Zamora Confirmed By:Didier Cedeno
[2020-11-28] MEDS: WARFARIN SOD 6 MG TAB PO SCH (16:46)
[2020-11-28] MEDS ORDERED: FUROSEMIDE 20 MG TAB PO ONE (17:00)
--- NOTE | 2020-11-28 19:52 | Billing Data ---
Date of Service November 27, 2020 Coding Level of Care Code INT OBSERVATION CARE 50M LVL 2
[2020-11-28] MEDS: SPIRONOLACTONE 12.5 MG TAB PO SCH (20:37)
[2020-11-28] MEDS: ISOSORBIDE MONO EXTENDED REL 30 MG TABCR PO SCH (20:39)
[2020-11-28] MEDS: MAGNESIUM OXIDE 400 MG TAB PO SCH (20:42)
[2020-11-29] MEDS: amLODIPine BESYLATE 5 MG TAB PO SCH (09:00)
[2020-11-29] MEDS: PANTOprazole 40 MG TAB PO SCH (09:00)
[2020-11-29] MEDS: FUROSEMIDE 20 MG TAB PO SCH (09:00)
[2020-11-29] MEDS: ISOSORBIDE MONO EXTENDED REL 60 MG TABCR PO SCH (09:00)
[2020-11-29] MEDS: AMOXICILLIN/CLAVULANATE 875 MG TAB PO SCH (09:00)
[2020-11-29] MEDS: METOPROLOL SUCC 25MG EXT REL TAB PO SCH (09:01)
[2020-11-29] MEDS: CLOPIDOGREL BISULFATE 75 MG TAB PO SCH (09:01)
[2020-11-29] MEDS: POTASSIUM CHLORIDE CRTAB 20 MEQ TABCR PO SCH (09:01)
[2020-11-29] MEDS: OXcarbazepine 150 MG TABLET PO SCH ×2 (09:01→15:33)
[2020-11-29] MEDS: RANOLAZINE 500 MG ER TAB PO SCH (09:01)
[2020-11-29] MEDS: GABAPENTIN 300 MG CAP PO SCH ×2 (09:01→15:32)
[2020-11-29] MEDS: FERROUS SULFATE 325 MG TAB PO SCH (09:02)
[2020-11-29 09:26] LABS: INR 1.5 (0.9-1.1); Prothrombin Time 14.6 Seconds (9.0-12.0)
[2020-11-29 09:42] LABS: BUN Creatinine Ratio 21.4 (10-20); Creatinine Clr Calc Pharmacy 29.8 ml/min; Est GFR (African American) 44.1 ml/min; Potassium 3.7 mmol/L (3.5-5.1)
--- NOTE | 2020-11-29 13:39 | XRay Report ---
TWO VIEW CHEST CLINICAL HISTORY: Bilateral rales on physical examination. FINDINGS: PA and lateral chest radiographs are compared to study dated 11/27/2020. Correlation is made with chest CT dated 12/22/2016. The PA view is degraded by patient rotation. The heart is enlarged noti ng atherosclerotic calcification of the thoracic aorta. The pulmonary vasculature is noncongested. Th ere is elevation of the left hemidiaphragm with bibasilar scarring/atelectasis. There is evidence of previous cardiac valve surgery. A 2-lead cardiac pacemaker is unchanged in position and partially obs cures the right upper chest. There is no airspace consolidation typical for pneumonia or pleural effu [place]. Chronic interstitial thickening is similar to previous. There is no pneumothorax. The skeletal structures are osteopenic. The bony thorax appears intact. A right shoulder arthroplasty is in place. Degenerative change and hyperkyphosis is noted in the thoracic spine. An IVC filter is partially tj ged in the upper abdomen. A vascular stent projects over the left upper chest. IMPRESSION: Cardiomegaly and chronic parenchymal changes as above with no active disease in the chest . ACT 112: Negative or not required by law. Electronically signed by: Nathan Winters M.D. 11/29/2020 1:37 PM
[2020-11-29] MEDS ORDERED: WARFARIN SOD 2 MG TAB PO STA (14:15)
--- NOTE | 2020-11-29 14:17 | Discharge Summary ---
Date of Service November 29, 2020 Admission HPI Per Admitting Provider Mrs. Ely is an 89 yo woman with an extensive cardiovascular history include CAD (s/p PCI with drug eluting stent placement), diastolic CHF, pacemaker and ICD placement, s/p TAVR with bioprosthetic valve placement, and a pulmonary embolism (chronically anticoagulated on coumadin) who was referred to the [facility] ED by her outpatient provider for evaluation of new onset chest pain. Mrs. Ely was seen in family medicine clinic earlier this afternoon - it was a routine follow up visit for right lower extremity cellulitis. She was started on a oral Augmentin course 4 days ago. During the visit, Mrs. Ely told her provider that she had been experienced central chest pain since about 10am in the morning. She is unsure of exactly when it came on - ie while at rest or walking. She does note being under some increased stress at the time (because a final touch up painter was coming to the house). She endorsed associated dyspnea on exertion and generalized weakness. The pain was located below the sternum/epigastrium - it did not radiate down the left arm or up the jaw. There was no associated nausea or diaphoresis. An in-office EKG was down at her outpatient provider's office - documentation indicates concern for new 2mm ST segment elevation in the inferolateral leads, which prompted her ems transport to the [facility] ED. En route, she was given 324mg ASA and 3 nitroglycerin tabs, which reportedly resolved her chest pain. However, in the ED, she reported the pain intermittently recurring. On arrival, her vitals were normal. Her CBC was normal. Her INR was 2.8. Her Pro-BNP was elevated to 2359. Her troponin was detectable at 0.026. Her Lipase was not elevated. Her liver function was normal. Her Cr was 0.96, BUN was mildly elevated to 24. EKG appeared identical to one faxed from outpatient office. CXR showing cardiomegaly with mild interstitial pulmonary edema and trace a left pleural effusion. Head CT showing no acute pathology. Discharge Data Allergies Allergy/AdvReac Type Severity Reaction Status Date / Time bee venom protein (honey bee) Allergy Severe ANAPHYLAXIS Verified 11/27/20 17:59 sodium lauryl sulfate Allergy Intermediate HIVES & Verified 11/27/20 17:59 WELTS Consultations 11/27/20 19:19 ED Decision to Admit Stat Ordered Studies 11/27/20 17:29 CT head/brain wo con Stat Hospital Course (1) Angina at rest: patient's chest pain symptoms are c/w her chronic angina. however, the chest pain episodes have been more frequent in the last 48 hours than baseline. previous cath in 2018 with severe CAD. s/p RCA stent at that time. echo in September 2020 with LAD territory wall motion abnormality. I spoke with Dr Clark -- medical management only; she is not a cath candidate. Will attempt to increase imdur to 60mg BID. cont ranexa. cont plavix; add aspirin?? but then would be on asa/plavix/coumadin. hold on asa for now. cont metoprolol succinate. if the pain symptoms persist will consult Dr Clark formally. observe overnight. (2) CAD (coronary artery disease): as above (3) Hypertension: controlled (4) History of DVT of lower extremity: on coumadin daily INR therapeutic INR today at 2.2 (5) H/O ileostomy: no issues (6) Acute on chronic diastolic (congestive) heart failure: probable mild decompensation received extra lasix last night will give additional lasix today patient reports dry weight of 181 pounds (7) Cellulitis of right lower extremity: resolved finish augmentin course (8) History of pulmonary embolus (PE): coumadin INR 2.2 today (9) Trigeminal neuralgia: cont home meds (10) Hyperlipidemia: not on meds for such (11) Pacemaker: v-paced (12) S/P TAVR (transcatheter aortic valve replacement): noted echo with mild periprosthetic leak in October 09 (13) Chronic renal failure, stage 3b: baseline CrCl 30s bmp am updated grandson by phone today with whom she lives Discharge Plan Discharge Items Patient Disposition: Home - Home Health Services Reason For Visit: CHEST PAIN Discharge Diagnosis: 1. chest pain/angina - due to coronary artery disease. Pain improved. Medications adjusted. 2. cough, abnormal sounds in the lungs - I am concerned that you may have "fibrosis" of the lungs based on chest x-rays done over several years. Fibrosis will contribute to cough and shortness of breath as well. There is no specific treatment if you have this, but we can give you an inhaler to try for your symptoms. 3. congestive heart failuire - fluid in legs/lungs improved. Discharge weight ~178.5 pounds. 4. recent right leg cellulitis - resolved. Activity: As commented below Activity Comment: activity as tolerated but don't over do it; light activities only Non-emergency contact: Primary Care Provider and Pump Oiler Call non-emergency contact if: you have any medication questions, your symptoms worsen and your pain is not controlled Follow-up/Referrals: Julius Zamora MD [Primary Care Provider] - (see Dr Zamora within 1 week) Rafael Clark DO [Physician] - (see Dr Clark within 1-2 weeks ) Diet: Heart Healthy Fluids: 1500ml (6 cups) Addtl Attending Provider Instructions: Mrs Ely, You were admitted to the hospital for chest pain. Although the blood work for the heart was normal - which means you didn't have a heart attack - it was presumed that your pain was angina or heart pain. We spoke with Dr Clark and we have increased your imdur (isosorbide mononitrate) at bedtime from 30mg to 60mg. All of your other heart medications have been unchanged. There was also suspicion you may have had additional water build-up in your legs and lungs. Thus, we gave you additional diuretics/water pills for the fluid. Your weight today is 178.5 pounds. Despite the loss of fluid weight you have a cough, and there are mild crackles on your lung examination. Chest x-rays dating back several years allude to the possibility of fibrosis of the lungs. This can cause cough and shortness of breath. There is no specific treatment for it. However, I called an inhaler into the pharmacy for you to use as needed for cough, congestion, etc. Please ask the pharmacy how to use the inhaler. It is 1 puff up to 4 times a day as needed. We walked you in the hallway and your oxygen levels stayed in the low to mid 90s. Thus, you do not need oxygen for your home. Resume your coumadin on , 11/30/20, per previous coumadin clinic instructions. We gave you your coumadin before discharge today. Your INR today is 1.5. Finally, your right leg infection is resolved. Please take 1 more dose of antibiotic TONIGHT (the amoxicillin-clavulanate) then discontinue it. Follow-up - 1. see Dr Zamora within a week 2. see Dr Clark within 1-2 weeks 3. see the coumadin clinic on Friday of this coming week for a repeat INR check Return to [facility] if - * you are having recurrent chest pains that are not responding to nitroglycerin tablets * your chest pain episodes are more frequent and closer together in time (example - several episodes in a day) * you have worsening shortness of breath * any other concerns It was our pleasure caring for you! Dr Hong Pending Studies at Discharge: No Stand-Alone Forms: My [facility], Smoking Cessation Medications and DC Order Prescriptions: New Combivent Respimat 20-100 mcg/actuation mist 1 puff inhalation Q6H PRN (Reason: cough, wheeze, shortness of breath) Qty: 4 RF: 0 Continued clopidogrel [Plavix] 75 mg Tablet 75 mg PO QAM RF: 0 pantoprazole [Protonix] 40 mg Tablet,Delayed Release (Dr/Ec) 40 mg PO QAM RF: 0 nitroglycerin [Nitrostat] 0.4 mg Tablet, Sublingual 0.4 mg Sublingual DIRECTED PRN (Reason: Chest Pain) RF: 0 metoprolol succinate [Toprol XL] 25 mg Tablet Extended Release 24 Hr 25 mg PO QAM RF: 0 epinephrine [EpiPen 2-Percy] 0.3 mg/0.3 mL Auto-Injector 0.3 mg IM DIRECTED PRN (Reason: Allergic Reaction) RF: 0 multivitamin with minerals Tablet 1 tab PO QAM RF: 0 ranolazine [Ranexa] 500 mg Tablet Extended Release 12 Hr 500 mg PO Q12H RF: 0 ferrous sulfate [FeroSul] 325 mg (65 mg iron) tablet 325 mg PO BID RF: 0 spironolactone [Aldactone] 25 mg tablet 12.5 mg PO HS RF: 0 oxcarbazepine [Trileptal] 300 mg tablet 300 mg PO QID Qty: 360 RF: 1 gabapentin 300 mg capsule 300 mg PO QID 90 Days Qty: 360 RF: 1 warfarin 6 mg tablet See Rx Instructions PO UD Qty: 100 RF: 1 baclofen 10 mg tablet 10 mg PO TID PRN (Reason: Muscle Spasm/face pain) Qty: 90 RF: 1 magnesium oxide 400 mg (241.3 mg magnesium) Tablet 400 mg PO HS Qty: 30 RF: 0 furosemide [Lasix] 20 mg tablet 20 mg PO BID RF: 0 isosorbide mononitrate 60 mg Tablet Extended Release 24 Hr 60 mg PO QAM Qty: 30 RF: 0 acetaminophen [Tylenol Extra Strength] 500 mg Tablet 500 mg PO Q6H PRN (Reason: Pain) RF: 0 ergocalciferol (vitamin D2) [Drisdol] 1,250 mcg (50,000 unit) capsule 50,000 unit PO MONTHLY RF: 0 amlodipine 5 mg tablet 5 mg PO DAILY RF: 0 potassium chloride 20 mEq tablet,ER particles/crystals 20 meq PO BID RF: 0 Changed isosorbide mononitrate 30 mg tablet extended release 24 hr 60 mg PO HS Qty: 0 RF: 0 Discontinued amoxicillin-pot clavulanate 875-125 mg tablet 1 tab PO BID RF: 0 Discharge Orders: Discharge Order (Routine); Ordered 11/29/20 Ordered By: Jayme Hong Admission Data Admit Date/Time: 11/27/20 20:52 Attending Provider: Jayme Hong Admit Provider: Gia Deleon Primary Care Provider: Julius Zamora Other Providers: Val Rowell Coding Diagnoses Angina at rest I20.8 CAD (coronary artery disease) I25.10 Hypertension I10 History of DVT of lower extremity Z86.718 H/O ileostomy Z98.890 Acute on chronic diastolic (congestive) heart failure I50.33 Cellulitis of right lower extremity L03.115 History of pulmonary embolus (PE) Z86.711 Trigeminal neuralgia G50.0 Hyperlipidemia E78.5 Pacemaker Z95.0 S/P TAVR (transcatheter aortic valve replacement) Z95.2 Chronic renal failure, stage 3b N18.32
[2020-11-29] MEDS: WARFARIN SOD 6 MG TAB PO SCH (15:33)
== END 2020-11-29 17:14 | disposition home health service (06) ==
LOC: ED 16:13 → 2W 16:13 → SUATTDRO 20:52 → 2W 22:09

== ENCOUNTER 2021-08-01 19:09 | Inpatient (IN) ==
--- NOTE | 2021-08-01 19:46 | Emergency Department Note ---
Impression & Plan SBO (small bowel obstruction), Hypoxemia, Parastomal hernia ED Provider Note NAME: LEONARD NAYAK AGE: 89 SEX: F : 1930 ARRIVES VIA: Walk-In INFORMANT: Patient, ED PROVIDER(S): Jorge Bowman MD Chief Complaint: Abdominal pain, concern for obstruction HPI: Patient presents due to concern for abdominal pain that she describes as near her ostomy site and feels full but the patient has had small amount of st ool that is passing. Patient states that it is feels like a bowel blockage and she has had one before. The patient denies any fevers chills chest pains or shortness of breath. The patient thinks that might have been due to an orange. The patient did have half of an orange and a banana for breakfast. Patient did try Tums but this did not prove her symptoms. The patient has had associated nausea. Patient denies any recent falls or trauma today. Patient has not had any urinary issues. Patient dates that the pain is localized to the right abdomen and is nonradiating aching nature ROS: See HPI for pertinent positives and negatives. A total of 10 systems were reviewed and otherwise negative. Past medical history: See below Surgical history: See below Social history: See below Physical Exam: GENERAL: NAD, non-toxic. EYE EXAM: Normal conjunctiva. PERRL, no anisocoria and EOM's grossly intact w/o pain. OROPHARYNX: Dry mucus membranes. Grossly normal dentition. NECK: Supple, no nuchal rigidity, no adenopathy, non-tender. No signs of meningismus. LUNGS: Clear to auscultation. Normal chest wall mechanics. HEART: NSR, systolic ejection murmur noted. ABDOMEN: Mild abdominal distention noted, right-sided ostomy, small amount of stool in bag, mild pain around the ostomy without any obvious erythema induration or drainage, no guarding or rebound. BACK: No CVA TTP. SKIN: No rashes and no bruising. UPPER EXTREMITIES: Upper extremities are grossly normal. LOWER EXTREMITIES: Grossly normal, no edema. Chronic venous stasis changes without any pain or calor. NEURO EXAM: A&O x3, cranial nerves II-XII grossly intact, normal speech, moves all 4 extremities on command w/o issue. Differential diagnoses: Appendicitis, ovarian cyst, ovarian torsion, ectopic , TOA, PID, infections, diverticulitis, UTI, obstruction, mesenteric ischemia, aortic pathology, inflammatory bowel disease, renal colic, PUD, pancreatitis, biliary pathology, hernia, volvulus, constipation, as well as other pathologies. Course: Patient was seen and evaluated the bedside. Full history physical exam was performed. EKG interpreted by me AV dual paced rhythm, rate of 69, wide QRS, left bundle branch block pattern. Imaging Studies: CT abdomen pelvis shows parastomal hernia high-grade bowel obstruction trace ascites 7 cm x 7 cm infrarenal aortic aneurysm. Cardiac monitoring: An order was placed for continuous cardiac monitoring. The monitor shows a rate of 72 with sinus rhythm. MDM: Patient presented due to concern for abdominal pain. Blood work is obtained along with CT abdomen pelvis. Blood work shows a white count of 10.8 with a normal H&H and platelet count. Kidney function was unremarkable with baseline creat at 1.2 which is what it is today. Patient CT was obtained which showed that she has a high-grade small bowel obstruction likely secondary to her ostomy site with associated parastomal hernia. After the patient had her CT the patient was noted to be hypoxic into the 80s. The patient reportedly was poorly positioned on the bed and did require repositioning. The patient was placed on supplemental oxygen. The patient does use oxygen as needed. I did order a troponin EKG and BNP. Upon subsequent reassessments the patient did have improvement in her breathing. Chest x-ray was also obtained. I did speak with on-call general surgery Dimitrios Waters PA-C who did evaluate the patient. He did state that the patient could potentially be admitted here but that they would not do any surgery and if the patient was a candidate she would require transfer. I did speak with the patient. The patient does not want intubation or overly aggressive measures and does not want CPR if her heart were to stop; however, if she is a candidate for surgery she would like to explore that as an option. I did initiate a transfer to [facility] I did speak with emergency general surgeon Dr. Ramírez. She kindly excepted the patient as a transfer. She recommended an NG be placed which was accomplished without any difficulty. Patient was accepted pending placement. Patient's chest x-ray does show likely gastric bubble in the left portion of the film. This may have contributed to the patient's difficulty with breathing. I did order the patient a dose of Bumex as the patient's BNP was elevated. High-sensitivity troponin is elevated likely think this to demand ischemia. I did order as needed blood pressure medication as the patient is on numerous medications but given her bowel obstruction cannot be given them by mouth. The patient's NG did put out approximately 1200 mL. Patient was more comfortable with regard to her respiratory status. The patient does use oxygen at home as needed. Patient was signed out to Dr. Ordonez pending transfer. Critical Care: I have personally spent 46 minutes of critical care time in direct management of this patient. This includes bedside care, interpretation of diagnostic studies, and testing, discussion with consultants, patient, and family members, and other require inpatient management activities. This 46 minutes is in excess of all separately billable procedures. Past Med/Surg History Medical History Aortic aneurysm Breast cancer Chest pain Chronic kidney disease, stage II (mild) Closed fracture of zygomatic arch Depression Dyslipidemia FH: total knee replacement H/O esophageal reflux History of DVT of lower extremity HTN (hypertension) Hypertension Hypertensive emergency Hyponatremia Hypoxia Ileostomy in place Pulmonary embolism Trigeminal neuralgia Vitamin D deficiency Wide-complex tachycardia Surgical History H/O cardiac catheterization H/O ileostomy H/O total colectomy H/O: hysterectomy S/P breast lumpectomy S/P shoulder surgery Family History Mother Cancer Acute myocardial infarction Uterine cancer Hypertension Father Cancer Prostate cancer Social History Smoking Status: Never smoker Second Hand Exposure: No; Hx Alcohol Use: No Hx Substance Use: No Preferred Language: Turkmen Communication Ability: [employer] Salesperson Required: No Beliefs That Will Affect Care: None marital status: / Current Living Situation: Other Current Living Situation Comment: lives with grandson Feels Safe at Home: Yes Assistive Devices: Walker Allergies Allergies Allergy/AdvReac Type Severity Reaction Status Date / Time bee venom protein (honey bee) Allergy Severe ANAPHYLAXIS Verified 08/01/21 22:07 sodium lauryl sulfate Allergy Intermediate HIVES & Verified 08/01/21 22:07 [facility] Home Medications Medication Instructions Recorded Confirmed clopidogrel 75 mg tablet (Plavix) 75 mg PO QAM 01/16/18 08/01/21 epinephrine 0.3 mg/0.3 mL 0.3 mg IM DIRECTED PRN 01/16/18 08/01/21 injection, auto-injector (EpiPen 2-Percy) metoprolol succinate 25 mg 25 mg PO QAM 01/16/18 08/01/21 tablet,extended release 24 hr (Toprol XL) multivitamin with minerals 1 tab PO QDD 01/16/18 08/01/21 nitroglycerin 0.4 mg sublingual 0.4 mg SUBLINGUAL DIRECTED PRN 01/16/18 08/01/21 tablet (Nitrostat) pantoprazole 40 mg tablet,delayed 40 mg PO QAM 01/16/18 08/01/21 release (Protonix) ranolazine 500 mg tablet,extended 500 mg PO Q12H 01/16/18 08/01/21 release,12 hr (Ranexa) acetaminophen 500 mg tablet 500 mg PO Q6H PRN 07/01/19 08/01/21 (Tylenol Extra Strength) ferrous sulfate 325 mg (65 mg 325 mg PO BID 10/19/19 08/01/21 iron) tablet (FeroSul) spironolactone 25 mg tablet 12.5 mg PO HS tab 04/11/20 08/01/21 (Aldactone) amlodipine 5 mg tablet 5 mg PO DAILY 09/22/20 08/01/21 potassium chloride 20 mEq 20 meq PO BID 09/22/20 08/01/21 tablet,extended release(part/cryst) bumetanide 1 mg tablet 1 mg PO DAILY 07/17/21 08/01/21 isosorbide mononitrate 60 mg 60 mg PO BID 07/17/21 08/01/21 tablet,extended release 24 hr warfarin 6 mg tablet 12 mg PO 2XWK 08/01/21 08/01/21 warfarin 6 mg tablet (Jantoven) 6 mg PO 5XWK 08/01/21 08/01/21 Previous Rx's Medication Instructions Recorded magnesium oxide 400 mg (241.3 mg 400 mg PO HS #30 tab 07/31/18 magnesium) tablet baclofen 10 mg tablet 10 mg PO TID PRN #90 tab 10/22/19 ipratropium 20 mcg-albuterol 100 1 puff INHALATION Q6H PRN #4 g 11/29/20 mcg/actuation mist for inhalation (Combivent Respimat) oxcarbazepine 300 mg tablet 300 mg PO QID #360 tab 02/09/21 (Trileptal) ergocalciferol (vitamin D2) 1,250 50,000 unit PO MONTHLY #3 cap 02/27/21 mcg (50,000 unit) capsule (Drisdol) gabapentin 300 mg capsule 300 mg PO QID 90 Days #360 cap 03/13/21 Results & Data (ED) Vital Signs Vital Signs - 24 hr 08/01/21 19:14 08/01/21 20:20 08/01/21 20:30 Temperature 35.3 C L Temperature Source Temporal Artery Scan Pulse Rate 69 68 67 Pulse Rate [Apical] Pulse Rate from SpO2 Sensor Respiratory Rate 18 21 13 Respiratory Effort / Characteristics Non-Labored Spontaneous Respiratory Depth Normal Respiratory Pattern Regular Blood Pressure 139/89 Blood Pressure [Right Arm] Blood Pressure Mean 105 Blood Pressure Mean [Right Arm] Blood Pressure Position [Right Arm] Pulse Oximetry 94 Oxygen Delivery Method Room Air Oxygen Flow Rate Sepsis Recent Fever Within 48 Hours No Sepsis New/Unexplained Change in Mental Status No Sepsis Action Taken by Nursing No Action Required 08/01/21 21:00 08/01/21 21:30 08/01/21 22:15 Temperature Temperature Source Pulse Rate 66 61 61 Pulse Rate [Apical] Pulse Rate from SpO2 Sensor Respiratory Rate 20 20 22 Respiratory Effort / Characteristics Respiratory Depth Respiratory Pattern Blood Pressure 142/75 H Blood Pressure [Right Arm] Blood Pressure Mean 97 Blood Pressure Mean [Right Arm] Blood Pressure Position [Right Arm] Pulse Oximetry Oxygen Delivery Method Oxygen Flow Rate Sepsis Recent Fever Within 48 Hours Sepsis New/Unexplained Change in Mental Status Sepsis Action Taken by Nursing 08/01/21 22:30 08/01/21 23:00 08/01/21 23:30 Temperature Temperature Source Pulse Rate 61 72 79 Pulse Rate [Apical] Pulse Rate from SpO2 Sensor 61 72 78 Respiratory Rate 22 23 30 H Respiratory Effort / Characteristics Respiratory Depth Respiratory Pattern Blood Pressure Blood Pressure [Right Arm] Blood Pressure Mean Blood Pressure Mean [Right Arm] Blood Pressure Position [Right Arm] Pulse Oximetry 83 L 94 94 Oxygen Delivery Method Oxymask Oxygen Flow Rate 4 Sepsis Recent Fever Within 48 Hours Sepsis New/Unexplained Change in Mental Status Sepsis Action Taken by Nursing 08/02/21 00:00 08/02/21 00:30 08/02/21 01:00 Temperature Temperature Source Pulse Rate 75 63 66 Pulse Rate [Apical] Pulse Rate from SpO2 Sensor 75 63 Respiratory Rate 23 23 23 Respiratory Effort / Characteristics Respiratory Depth Respiratory Pattern Blood Pressure Blood Pressure [Right Arm] Blood Pressure Mean Blood Pressure Mean [Right Arm] Blood Pressure Position [Right Arm] Pulse Oximetry 97 100 Oxygen Delivery Method Oxymask Oxygen Flow Rate 4 Sepsis Recent Fever Within 48 Hours Sepsis New/Unexplained Change in Mental Status Sepsis Action Taken by Nursing 08/02/21 01:14 08/02/21 01:30 08/02/21 01:58 Temperature Temperature Source Pulse Rate 79 65 80 Pulse Rate [Apical] Pulse Rate from SpO2 Sensor 73 65 Respiratory Rate 29 H 24 24 Respiratory Effort / Characteristics Respiratory Depth Respiratory Pattern Blood Pressure 159/95 H 159/95 H Blood Pressure [Right Arm] Blood Pressure Mean 116 116 Blood Pressure Mean [Right Arm] Blood Pressure Position [Right Arm] Pulse Oximetry 96 94 Oxygen Delivery Method Oxymask Oxymask Oxygen Flow Rate 4 Sepsis Recent Fever Within 48 Hours Sepsis New/Unexplained Change in Mental Status Sepsis Action Taken by Nursing 08/02/21 02:00 Temperature Temperature Source Pulse Rate Pulse Rate [Apical] 66 Pulse Rate from SpO2 Sensor Respiratory Rate 24 Respiratory Effort / Characteristics Respiratory Depth Respiratory Pattern Blood Pressure Blood Pressure [Right Arm] 155/80 H Blood Pressure Mean Blood Pressure Mean [Right Arm] 105 Blood Pressure Position [Right Arm] Semi-fowlers Pulse Oximetry 91 Oxygen Delivery Method Oxymask Oxygen Flow Rate 4 Sepsis Recent Fever Within 48 Hours Sepsis New/Unexplained Change in Mental Status Sepsis Action Taken by [facility] Medications Current Medication List: was personally reviewed by me Laboratory Data Attestation: I reviewed the patient's lab results. Result diagrams: 08/01/21 20:56 08/01/21 20:56 Lab Results 08/01/21 08/01/21 08/01/21 Range/Units 20:56 20:56 20:57 WBC 10.87 H (4.8-10.8) K/uL RBC 4.64 (4.2-5.4) M/uL Hgb 14.6 (12.0-16.0) g/dL Hct 43.5 (37-47) % MCV 93.8 (80-100) fL MCH 31.5 (25-34) pg MCHC 33.6 (32-36) g/dL RDW Std Deviation 46.0 (36.4-46.3) fL RDW Coeff of Boy 13.4 (11.5-14.5) % Plt Count 191 (130-400) K/uL MPV 10.5 H (7.4-10.4) fL Immature Gran % (Auto) 0.2 % Neut % (Auto) 87.9 % Lymph % (Auto) 6.7 % [place] % (Auto) 4.4 % Eos % (Auto) 0.7 % Baso % (Auto) 0.1 % Neut # (Auto) 9.55 H (1.4-6.5) K/uL Lymph # (Auto) 0.73 L (1.2-3.4) K/uL [place] # (Auto) 0.48 (0.11-0.59) K/uL Eos # (Auto) 0.08 (0-0.5) K/uL Baso # (Auto) 0.01 (0-0.2) K/uL Immature Gran # (Auto) 0.02 (0.00-0.02) K/uL PT 19.8 H (9.0-12.0) Seconds INR 1.9 H (0.9-1.1) APTT 31.2 H (21.0-31.0) Seconds PTT Ratio 1.1 Sodium 134 L (136-145) mmol/L Potassium 4.4 (3.5-5.1) mmol/L Chloride 104 (98-107) mmol/L Carbon Dioxide 22 (21-32) mmol/L Anion Gap 8 (3-11) BUN 36 H (6-23) mg/dl Creatinine 1.26 H (0.6-1.2) mg/dl Est Cr Clr Drug Dosing 33.3 ml/min Est GFR ( Amer) 43.7 ml/min Est GFR (Non-Af Amer) 37.7 ml/min BUN/Creatinine Ratio 28.6 H (10-20) Glucose 132 H (70-99(Fasting)) mg/dl Calcium 10.0 (8.5-10.1) mg/dl Total Bilirubin 0.5 (0.2-1.0) mg/dl AST 20 (13-39) U/L ALT 13 (7-52) U/L Alkaline Phosphatase 142 H (34-104) U/L Troponin I High Sens (0-14) pg/ml B-Natriuretic Peptide (0-100) pg/ml Total Protein 7.9 (6.0-8.3) gm/dl Albumin 3.8 (3.4-5.0) gm/dl Globulin 4.1 H (2.5-4.0) gm/dl Albumin/Globulin Ratio 0.9 (0.9-2) Lipase 15 (11-82) U/L Urine Color Urine Appearance (Clear) Urine pH (4.5-7.5) Ur Specific [place] (1.000-1.030) Urine Protein (Negative) Urine Glucose (UA) (Negative) Urine Ketones (Negative) Urine Blood (Negative) Urine Nitrite (Negative) Urine Bilirubin (Negative) Urine Urobilinogen (Negative) Ur Leukocyte Esterase (Negative) Urine WBC (Auto) (0-5) /hpf Urine RBC (Auto) (0-4) /hpf U Hyaline Cast (Auto) (0-5) /lpf U Epithel Cells (Auto) (0-5) /lpf Urine Bacteria (Auto) (Negative) SARS-CoV-2, RNA, NAAT (NEGATIVE) 08/01/21 08/01/21 08/01/21 Range/Units 22:48 23:07 23:25 WBC (4.8-10.8) K/uL RBC (4.2-5.4) M/uL Hgb (12.0-16.0) g/dL Hct (37-47) % MCV (80-100) fL MCH (25-34) pg MCHC (32-36) g/dL RDW Std Deviation (36.4-46.3) fL RDW Coeff of Boy (11.5-14.5) % Plt Count (130-400) K/uL MPV (7.4-10.4) fL Immature Gran % (Auto) % Neut % (Auto) % Lymph % (Auto) % [place] % (Auto) % Eos % (Auto) % Baso % (Auto) % Neut # (Auto) (1.4-6.5) K/uL Lymph # (Auto) (1.2-3.4) K/uL [place] # (Auto) (0.11-0.59) K/uL Eos # (Auto) (0-0.5) K/uL Baso # (Auto) (0-0.2) K/uL Immature Gran # (Auto) (0.00-0.02) K/uL PT (9.0-12.0) Seconds INR (0.9-1.1) APTT (21.0-31.0) Seconds PTT Ratio Sodium (136-145) mmol/L Potassium (3.5-5.1) mmol/L Chloride (98-107) mmol/L Carbon Dioxide (21-32) mmol/L Anion Gap (3-11) BUN (6-23) mg/dl Creatinine (0.6-1.2) mg/dl Est Cr Clr Drug Dosing ml/min Est GFR ( Amer) ml/min Est GFR (Non-Af Amer) ml/min BUN/Creatinine Ratio (10-20) Glucose (70-99(Fasting)) mg/dl Calcium (8.5-10.1) mg/dl Total Bilirubin (0.2-1.0) mg/dl AST (13-39) U/L ALT (7-52) U/L Alkaline Phosphatase (34-104) U/L Troponin I High Sens 18.2 H (0-14) pg/ml B-Natriuretic Peptide 391 H (0-100) pg/ml Total Protein (6.0-8.3) gm/dl Albumin (3.4-5.0) gm/dl Globulin (2.5-4.0) gm/dl Albumin/Globulin Ratio (0.9-2) Lipase (11-82) U/L Urine Color Urine Appearance (Clear) Urine pH (4.5-7.5) Ur Specific [place] (1.000-1.030) Urine Protein (Negative) Urine Glucose (UA) (Negative) Urine Ketones (Negative) Urine Blood (Negative) Urine Nitrite (Negative) Urine Bilirubin (Negative) Urine Urobilinogen (Negative) Ur Leukocyte Esterase (Negative) Urine WBC (Auto) (0-5) /hpf Urine RBC (Auto) (0-4) /hpf U Hyaline Cast (Auto) (0-5) /lpf U Epithel Cells (Auto) (0-5) /lpf Urine Bacteria (Auto) (Negative) SARS-CoV-2, RNA, NAAT NEGATIVE (NEGATIVE) 08/02/21 Range/Units 01:25 WBC (4.8-10.8) K/uL RBC (4.2-5.4) M/uL Hgb (12.0-16.0) g/dL Hct (37-47) % MCV (80-100) fL MCH (25-34) pg MCHC (32-36) g/dL RDW Std Deviation (36.4-46.3) fL RDW Coeff of Boy (11.5-14.5) % Plt Count (130-400) K/uL MPV (7.4-10.4) fL Immature Gran % (Auto) % Neut % (Auto) % Lymph % (Auto) % [place] % (Auto) % Eos % (Auto) % Baso % (Auto) % Neut # (Auto) (1.4-6.5) K/uL Lymph # (Auto) (1.2-3.4) K/uL [place] # (Auto) (0.11-0.59) K/uL Eos # (Auto) (0-0.5) K/uL Baso # (Auto) (0-0.2) K/uL Immature Gran # (Auto) (0.00-0.02) K/uL PT (9.0-12.0) Seconds INR (0.9-1.1) APTT (21.0-31.0) Seconds PTT Ratio Sodium (136-145) mmol/L Potassium (3.5-5.1) mmol/L Chloride (98-107) mmol/L Carbon Dioxide (21-32) mmol/L Anion Gap (3-11) BUN (6-23) mg/dl Creatinine (0.6-1.2) mg/dl Est Cr Clr Drug Dosing ml/min Est GFR ( Amer) ml/min Est GFR (Non-Af Amer) ml/min BUN/Creatinine Ratio (10-20) Glucose (70-99(Fasting)) mg/dl Calcium (8.5-10.1) mg/dl Total Bilirubin (0.2-1.0) mg/dl AST (13-39) U/L ALT (7-52) U/L Alkaline Phosphatase (34-104) U/L Troponin I High Sens (0-14) pg/ml B-Natriuretic Peptide (0-100) pg/ml Total Protein (6.0-8.3) gm/dl Albumin (3.4-5.0) gm/dl Globulin (2.5-4.0) gm/dl Albumin/Globulin Ratio (0.9-2) Lipase (11-82) U/L Urine Color Dark Yellow Urine Appearance Cloudy A (Clear) Urine pH 5.5 (4.5-7.5) Ur Specific [place] > 1.045 H (1.000-1.030) Urine Protein 1+ H (Negative) Urine Glucose (UA) Negative (Negative) Urine Ketones Negative (Negative) Urine Blood Negative (Negative) Urine Nitrite Negative (Negative) Urine Bilirubin Negative (Negative) Urine Urobilinogen Negative (Negative) Ur Leukocyte Esterase 2+ H (Negative) Urine WBC (Auto) >30 H (0-5) /hpf Urine RBC (Auto) 0-4 (0-4) /hpf U Hyaline Cast (Auto) 1-5 (0-5) /lpf U Epithel Cells (Auto) 10-20 H (0-5) /lpf Urine Bacteria (Auto) Negative (Negative) SARS-CoV-2, RNA, NAAT (NEGATIVE) Administered Medications Discontinued Medications Sodium Chloride (Nss) 500 mls @ 999 mls/hr IV .Q31M STA Stop: 08/01/21 20:22 Last Infusion: 08/01/21 21:23 Dose: 0 mls/hr Documented by: [id number] Admin: 08/01/21 20:39 Dose: 999 mls/hr Documented by: [id number] Ioversol (Optiray 320 100ml) 91 ml IV ONCE ONE Stop: 08/01/21 21:54 Last Admin: 08/01/21 21:57 Dose: 91 ml Documented by: [id number] Morphine Sulfate (Morphine Sulfate 4 Mg/Ml 1 Ml Carp\Vial) 2 mg IV NOW STA Stop: 08/01/21 19:53 Last Admin: 08/01/21 20:38 Dose: 2 mg Documented by: [id number] Ondansetron HCl (Ondansetron Inj 2 Mg/Ml 2 Ml Vial) 4 mg IV NOW STA Stop: 08/01/21 19:53 Last Admin: 08/01/21 20:39 Dose: 4 mg Documented by: [id number] Ondansetron HCl (Ondansetron Inj 2 Mg/Ml 2 Ml Vial) Confirm Administered Dose 4 mg .ROUTE .K-MED ONE Stop: 08/01/21 23:54 Last Admin: 08/02/21 00:08 Dose: 4 mg Documented by: [id number] Discharge Plan Visit Data Chief Complaint: GI Assessment Stated Complaint: BOWEL BLOCKAGE ED Provider: Jorge Bowman Discharge Problem: SBO (small bowel obstruction), Hypoxemia, Parastomal hernia Patient Disposition: Transfer Acute Care Hospital Forms Stand Alone Forms: [facility] Prescriptions Prescriptions: No Action clopidogrel [Plavix] 75 mg Tablet 75 mg PO QAM RF: 0 pantoprazole [Protonix] 40 mg Tablet,Delayed Release (Dr/Ec) 40 mg PO QAM RF: 0 nitroglycerin [Nitrostat] 0.4 mg Tablet, Sublingual 0.4 mg Sublingual DIRECTED PRN (Reason: Chest Pain) RF: 0 metoprolol succinate [Toprol XL] 25 mg Tablet Extended Release 24 Hr 25 mg PO QAM RF: 0 epinephrine [EpiPen 2-Percy] 0.3 mg/0.3 mL Auto-Injector 0.3 mg IM DIRECTED PRN (Reason: Allergic Reaction) RF: 0 multivitamin with minerals Tablet 1 tab PO QDD RF: 0 ranolazine [Ranexa] 500 mg Tablet Extended Release 12 Hr 500 mg PO Q12H RF: 0 ferrous sulfate [FeroSul] 325 mg (65 mg iron) tablet 325 mg PO BID RF: 0 spironolactone [Aldactone] 25 mg tablet 12.5 mg PO HS RF: 0 oxcarbazepine [Trileptal] 300 mg tablet 300 mg PO QID Qty: 360 RF: 1 ergocalciferol (vitamin D2) [Drisdol] 1,250 mcg (50,000 unit) capsule 50,000 unit PO MONTHLY Qty: 3 RF: 3 gabapentin 300 mg capsule 300 mg PO QID 90 Days Qty: 360 RF: 1 baclofen 10 mg tablet 10 mg PO TID PRN (Reason: Muscle Spasm/face pain) Qty: 90 RF: 1 magnesium oxide 400 mg (241.3 mg magnesium) Tablet 400 mg PO HS Qty: 30 RF: 0 acetaminophen [Tylenol Extra Strength] 500 mg Tablet 500 mg PO Q6H PRN (Reason: Pain) RF: 0 Combivent Respimat 20-100 mcg/actuation mist 1 puff inhalation Q6H PRN (Reason: cough, wheeze, shortness of breath) Qty: 4 RF: 0 warfarin 6 mg tablet 12 mg PO 2XWK RF: 0 warfarin [Jantoven] 6 mg tablet 6 mg PO 5XWK RF: 0 amlodipine 5 mg tablet 5 mg PO DAILY RF: 0 potassium chloride 20 mEq tablet,ER particles/crystals 20 meq PO BID RF: 0 bumetanide 1 mg tablet 1 mg PO DAILY RF: 0 isosorbide mononitrate 60 mg tablet extended release 24 hr 60 mg PO BID RF: 0 Referrals Referrals: Julius Zamora MD [Primary Care Provider] -
[2021-08-01] MEDS ORDERED: ONDANSETRON INJ 2 MG/ML 2 ML VIAL IV STA (19:52)
[2021-08-01] MEDS ORDERED: SODIUM CHLORIDE 0.9% 500 ML IV STA (19:52)
[2021-08-01] MEDS ORDERED: MoRPHine SULFATE 4 MG/ML 1 ML CARP\\VIAL IV STA (19:52)
[2021-08-01 21:25] LABS: Albumin Globulin Ratio 0.9 (0.9-2); Albumin Level 3.8 gm/dl (3.4-5.0); BUN Creatinine Ratio 28.6 (10-20); Basophils # (auto) 0.01 K/uL (0-0.2); Basophils % (auto) 0.1 %; Bilirubin,Total 0.5 mg/dl (0.2-1.0); Creatinine Clr Calc Pharmacy 33.3 ml/min; Eosinophils # (auto) 0.08 K/uL (0-0.5); Eosinophils % (auto) 0.7 %; Est GFR (African American) 43.7 ml/min; Est GFR (Non-African American) 37.7 ml/min; Globulin 4.1 gm/dl (2.5-4.0); Hematocrit (blood only) 43.5 % (37-47); Hemoglobin 14.6 g/dL (12.0-16.0); Immature Granulocytes # (auto) 0.02 K/uL (0.00-0.02); Immature Granulocytes % (auto) 0.2 %; Lymphocytes # (auto) 0.73 K/uL (1.2-3.4); Lymphocytes % (auto) 6.7 %; Mean Corpuscular Hemoglobin 31.5 pg (25-34); Mean Corpuscular Hgb Conc 33.6 g/dL (32-36); Mean Corpuscular Volume 93.8 fL (80-100); Mean Platelet Volume 10.5 fL (7.4-10.4); Monocytes # (auto) 0.48 K/uL (0.11-0.59); Monocytes % (auto) 4.4 %; Neutrophils # (auto) 9.55 K/uL (1.4-6.5); Neutrophils % (auto) 87.9 %; Platelet Count 191 K/uL (130-400); Potassium 4.4 mmol/L (3.5-5.1); RDW Coefficient of Variation 13.4 % (11.5-14.5); Red Blood Count 4.64 M/uL (4.2-5.4); Total Protein 7.9 gm/dl (6.0-8.3); White Blood Count 10.87 K/uL (4.8-10.8)
[2021-08-01] MEDS ORDERED: OPTIRAY 320 100ml IV ONE (21:53)
[2021-08-01 22:59] LABS: INR 1.9 (0.9-1.1); Partial Thromboplastin Ratio 1.1; Partial Thromboplastin Time 31.2 Seconds (21.0-31.0); Prothrombin Time 19.8 Seconds (9.0-12.0)
--- NOTE | 2021-08-01 23:11 | Surgery Consultation ---
Date of Consultation August 01, 2021 Assessment & Plan (1) Small bowel obstruction: I had a lengthy discussion with the patient and her grandson at bedside as well as the treating emergency room physician. I discussed the case also with my attending physician Dr. Rosales who has reviewed the CAT scan. Due to the patient's numerous medical comorbidities and her history of extensive abdominal surgery and her noted parastomal hernia is felt that she would not be a surgical candidate at this facility. Conveyed this message to the treating emergency room physician and have recommended that patient wishes to pursue surgical intervention in the event that conservative measures fail transfer to tertiary care center should be undertaken. If conservative measures alone are to be employed I would recommend placing an NG tube, keeping the patient n.p.o., and hydrating with IV fluids. Supervising Physician Co-Signing Physician Notes labs and imaging reviewed, case discussed with Dimitrios FLORES. 89 y/o female with multiple medical problems presented with decreased ostomy output. afvss. CT with parastomal hernia and obstruction. Recommend transfer to tertiary care center for further evaluation. History of Present Illness Reason for Consultation: Small bowel obstruction History of Present Illness Is an 89-year-old female with a very extensive and complicated past medical history. The patient suffers from chronic kidney disease, peripheral vascular disease, abdominal uric aneurysm, breast cancer, depression, hyperlipidemia, history of DVT and pulmonary embolism, hypertension, CHF, coronary artery disease and colorectal cancer. She was also noted to have valvular heart dis ease. Patient has undergone an extensive abdominal surgeon the form of a proctocolectomy with an ostomy. She notes that this procedure was performed at [facility] many years ago. She presented to the emergency department today secondary abdominal pain. The patient notes that yesterday she was in her usual state of health but earlier today she began to experience some generalized abdominal pain that appeared to be worse near her ostomy. She denies any nausea vomiting but notes that her ostomy has not had any output for nearly 24 hours. She denies any fevers, shakes, chills. She denies any chest pain. In the emergency department today the patient underwent a CT scan of the abdomen and pelvis. This showed the patient had a history of a proctocolectomy with a right lower quadrant ostomy. Patient was noted to have a parastomal hernia containing fat and multiple loops of bowel resulting in high-grade small bowel obstruction. Bowel loops were dilated and fluid-filled. The stomach was also distended with fluid. No pneumatosis or free air was noted. Patient was also noted to have an IVC filter in place and was also found to have a fusiform infrarenal abdominal aortic aneurysm measuring approximate 7 cm in diameter. Labs today include a CBC her white blood cell count was 10.8. Hemoglobin, hematocrit, and platelet count were all normal. Coagulation studies revealed an INR of 1.9. Sodium was 134 and potassium was noted be normal. Her BUN and creatinine were both slightly elevated at 36 and 1.26 respectively. There is no significant elevation of her transaminases or bilirubin. Alkaline phosphatase had a slight elevation at 142 and lipase was normal. At the time of my interview the patient was complaining of abdominal pain and appeared uncomfortable. Allergies Allergy/AdvReac Type Severity Reaction Status Date / Time bee venom protein (honey bee) Allergy Severe ANAPHYLAXIS Verified 08/01/21 22:07 sodium lauryl sulfate Allergy Intermediate HIVES & Verified 08/01/21 22:07 WELTS Home Medications Medication Instructions Recorded Confirmed Type clopidogrel 75 mg tablet (Plavix) 75 mg PO QAM 01/16/18 08/01/21 History epinephrine 0.3 mg/0.3 mL 0.3 mg IM DIRECTED PRN 01/16/18 08/01/21 History injection, auto-injector (EpiPen 2-Percy) metoprolol succinate 25 mg 25 mg PO QAM 01/16/18 08/01/21 History tablet,extended release 24 hr (Toprol XL) multivitamin with minerals 1 tab PO QDD 01/16/18 08/01/21 History nitroglycerin 0.4 mg sublingual 0.4 mg SUBLINGUAL DIRECTED PRN 01/16/18 08/01/21 History tablet (Nitrostat) pantoprazole 40 mg tablet,delayed 40 mg PO QAM 01/16/18 08/01/21 History release (Protonix) ranolazine 500 mg tablet,extended 500 mg PO Q12H 01/16/18 08/01/21 History release,12 hr (Ranexa) magnesium oxide 400 mg (241.3 mg 400 mg PO HS #30 tab 07/31/18 08/01/21 Rx magnesium) tablet acetaminophen 500 mg tablet 500 mg PO Q6H PRN 07/01/19 08/01/21 History (Tylenol Extra Strength) ferrous sulfate 325 mg (65 mg 325 mg PO BID 10/19/19 08/01/21 History iron) tablet (FeroSul) baclofen 10 mg tablet 10 mg PO TID PRN #90 tab 10/22/19 08/01/21 Rx spironolactone 25 mg tablet 12.5 mg PO HS tab 04/11/20 08/01/21 History (Aldactone) amlodipine 5 mg tablet 5 mg PO DAILY 09/22/20 08/01/21 History potassium chloride 20 mEq 20 meq PO BID 09/22/20 08/01/21 History tablet,extended release(part/cryst) ipratropium 20 mcg-albuterol 100 1 puff INHALATION Q6H PRN #4 g 11/29/20 08/01/21 Rx mcg/actuation mist for inhalation (Combivent Respimat) oxcarbazepine 300 mg tablet 300 mg PO QID #360 tab 02/09/21 08/01/21 Rx (Trileptal) ergocalciferol (vitamin D2) 1,250 50,000 unit PO MONTHLY #3 cap 02/27/21 08/01/21 Rx mcg (50,000 unit) capsule (Drisdol) gabapentin 300 mg capsule 300 mg PO QID 90 Days #360 cap 03/13/21 08/01/21 Rx bumetanide 1 mg tablet 1 mg PO DAILY 07/17/21 08/01/21 History isosorbide mononitrate 60 mg 60 mg PO BID 07/17/21 08/01/21 History tablet,extended release 24 hr warfarin 6 mg tablet 12 mg PO 2XWK 08/01/21 08/01/21 History warfarin 6 mg tablet (Jantoven) 6 mg PO 5XWK 08/01/21 08/01/21 History Patient History Medical History Aortic aneurysm Breast cancer Chest pain Chronic kidney disease, stage II (mild) Closed fracture of zygomatic arch Depression Dyslipidemia FH: total knee replacement H/O esophageal reflux History of DVT of lower extremity HTN (hypertension) Hypertension Hypertensive emergency Hyponatremia Hypoxia Ileostomy in place Pulmonary embolism Trigeminal neuralgia Vitamin D deficiency Wide-complex tachycardia Surgical History H/O cardiac catheterization H/O ileostomy H/O total colectomy H/O: hysterectomy S/P breast lumpectomy S/P shoulder surgery Family History Mother Cancer Acute myocardial infarction Uterine cancer Hypertension Father Cancer Prostate cancer Social History Smoking Status: Never smoker Second Hand Exposure: No; Hx Alcohol Use: No Hx Substance Use: No Preferred Language: Uzbek Communication Ability: Effective Supervisor Dairy Sanitation Required: No Beliefs That Will Affect Care: None marital status: / Current Living Situation: Other Current Living Situation Comment: lives with grandson Feels Safe at Home: Yes Assistive Devices: Walker Review of Systems Constitutional: no fever and no chills Eyes: no diplopia Ear, Nose, Mouth, Throat: no hearing loss Respiratory: no cough and no dyspnea Cardiovascular: no chest pain Gastrointestinal: + abdominal pain; no nausea and no vomiting Genitourinary: no dysuria Musculoskeletal: no back pain Integumentary: no rash Neurologic: no localized weakness Physical Exam Constitutional: + ill appearing and + thin Eyes: no conjunctival abnormality ENMT: Ears: no hearing impairment and no external ear abnormality Neck: trachea midline Respiratory: normal respiratory effort; no respiratory distress and no labored breathing Cardiovascular: Rate/Rhythm: regular rate and regular rhythm Gastrointestinal (Abdomen): There is mild to moderate distention noted of patient's abdomen. It is tympanic to percussion. There is pain with palpation in a generalized fashion but appear to be greatest near the patient's ostomy. Near the patient's ostomy there is a large bulge consistent with a parastomal hernia which was painful to palpation. There is no surrounding erythema of this area. Patient's ostomy bag did not have any gas, solid, or liquid output. Musculoskeletal: No calf tenderness Skin: no rashes Neurologic: moves all extremities Psychiatric: A+Ox3, euthymic affect Results & Data ([facility]) Vital Signs (Past 12 Hours) Vital Signs Temp Pulse Resp BP Pulse Ox 08/01/21 19:14 35.3 C L 69 18 139/89 94 PG Care Time/CCT Total # of Minutes Spent Total Time Spent with Patient: Total time spent is greater than 50% in coordination of care (as documented) at patient's floor/unit and/or counseling patient: Coding Level of Care Code 09851 Inpt Consult Level 5 Diagnoses Small bowel obstruction K56.609
[2021-08-01] MEDS ORDERED: ONDANSETRON INJ 2 MG/ML 2 ML VIAL ONE (23:53)
[2021-08-02] MEDS ORDERED: hydrALAZINE HCL 20 MG/ML VIAL IV PRN (01:28)
[2021-08-02 01:35] LABS: Appearance Urine Cloudy (Clear); Bacteria Urine Automated Negative (Negative); Bilirubin Urine Negative (Negative); Blood Urine Negative (Negative); Color Urine Dark Yellow; Glucose Urine UA Negative (Negative); Ketones Urine Negative (Negative); Leukocyte Esterase Urine 2+ (Negative); Nitrite Urine Negative (Negative); Protein Urine 1+ (Negative); RBC Urine Automated 0-4 /hpf (0-4); Specific Gravity Urine > 1.045 (1.000-1.030); Urobilinogen Urine Negative (Negative); WBC Urine Automated >30 /hpf (0-5); pH Urine 5.5 (4.5-7.5)
[2021-08-02] MEDS ORDERED: BUMETANIDE 1 MG in SYRINGE 0 ML IV ONE (01:41)
[2021-08-02] MEDS ORDERED: FUROSEMIDE 40 MG/4 ML VIAL IV ONE (03:58)
--- NOTE | 2021-08-02 04:00 | Emergency Department Note ---
ED Visit Note Patient had been seen and evaluated by Dr. Bowman, and arrangements made for transport to [facility] where she was accepted. Patient with a high-grade small bowel obstruction. Patient did have NG tube placed, Dr. Bowman confirmed DNR/DNI. During my overnight shift, patient was noted by nursing staff to be less responsive, and her oxygen levels had dropped causing them to increase her oxygen via nasal cannula. Patient was somnolent however would arouse to voice and painful stimuli. She denied pain or trouble breathing. Repeat chest x-ray ordered as a precaution as well as ABG. Repeat chest x-ray appears to show evolving pulmonary edema. Patient does have history of congestive heart failure, and was previously given Bumex. Hill catheter was ordered, patient given a dose of Lasix. 0745: After additional calls through the night and into this morning, her she reported that they would not have available bed space until later on this ev ening/tonight. I discussed this with the patient and family at bedside. She would like to wait for a bed at [facility] and lieu of investigating additional options for transfer at an alternative facility. They again are in agreement with plan for conservative management and surgery only if necessary as a last resort. 0830: Case discussed with Dr. Borges. I did begin to wean down pt's oxygen to 4.5 lpm. Patient states mild discomfort from the catheter and in her lower abdomen. . : Parastomal hernia Qualifiers: Obstruction and gangrene presence: with obstruction but without gangrene Qualified Code(s): K43.3 - Parastomal hernia with obstruction, without gangrene
[2021-08-02 04:08] LABS: Base Excess ABG -4.7 mEq/L (-9-1.8); HCO3 ABG 21 mmol/L (19-24); Oxygen Saturation ABG 95.6 % (90-95); PCO2 ABG 40 mmHg (35-46); PO2 ABG 79 mmHg (80-95); pH ABG 7.33 (7.35-7.45)
[2021-08-02 04:13] LABS: Allen Test POS (Pos)
[2021-08-02] MEDS ORDERED: ACETAMINOPHEN 1,000 MG/100 ML VIAL IV STA ×2 (05:13→08:46)
[2021-08-02] MEDS ORDERED: BUMETANIDE 1 MG in SYRINGE 0 ML IV SCH (06:00)
[2021-08-02] MEDS: PANTOprazole 40 MG in SYRINGE 0 ML IV SCH ×2 (06:11→10:30)
--- NOTE | 2021-08-02 07:56 | XRay Report ---
XR chest 1V portable HISTORY: hypoxia, NG tube adjustment COMPARISON: Chest 08/01/2021. FINDINGS: Nasogastric tube terminates below the diaphragm is likely within the body the stomach. Righ t dual-chamber pacemaker is again noted. A cardiac valve stent in right shoulder prosthesis are prese nt. There is a left axillary vascular stent again noted. No pneumothorax. Low lung volumes with eleva tion the left hemidiaphragm. Bibasilar linear densities persist. There is mild central pulmonary vasc ular congestion without overt edema. The heart remains enlarged. IMPRESSION: 1. Nasogastric tube terminates in the body the stomach. 2. Cardiomegaly and mild central pulmonary vascular congestion persists. 3. Low lung volume is a bibasilar linear densities. This favors subsegmental atelectasis. A pneumonia could also have a similar appearance. ACT 112: Negative or not required by law. Electronically signed by: Justin Lepe M.D. 08/02/2021 7:55 AM
--- NOTE | 2021-08-02 07:57 | XRay Report ---
XR chest 1V portable HISTORY: Shortness of breath. COMPARISON: Chest 07/17/2021. FINDINGS: The heart is enlarged. There is mild central pulmonary vascular congestion without overt ed herrera. No pneumothorax. No pleural effusions. There is elevation left hemidiaphragm with left basilar l inear densities. This favors atelectasis. There is a right shoulder prosthesis, right sided pacemaker , cardiac valve stent, and a left axillary vascular stent again noted. IMPRESSION: 1. Cardiomegaly with mild central pulmonary vascular congestion. 2. Elevated left hemidiaphragm with left basilar linear densities. This favors subsegmental atelectas is. A pneumonia could also have a similar appearance. ACT 112: Negative or not required by law. Electronically signed by: Justin Lepe M.D. 08/02/2021 7:56 AM
[2021-08-02] MEDS ORDERED: fentaNYL citrate 100 MCG/2 ML VIAL IV PRN (08:46)
--- NOTE | 2021-08-02 09:03 | Communication Note ---
Date of Service: August 02, 2021 Mrs. 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 Colostomy done at her [facility] 1981. Was in her usual state of health until yesterday at 2:00. Colostomy bag was stooling and functioning normally. After eating lunch, she developed abrupt and severe abdominal pain. Pain has been constant. She has had extensive nausea without emesis. Now without stool or gas in her ostomy bag. She has had bowel obstructions in the past and given that, was concerned which is what prompted her to seek medical attention. Work-up in the emergency department yielded a high-grade small bowel obstruction with significant stomach and esophageal dilatation. In addition, she has a parastomal hernia containing visceral fat and multiple dilated loops of bowel. The high-grade small bowel obstruction is related to the ostomy site. She was seen by general surgery who recommended transfer to a tertiary center given her chronic comorbidities and being a high risk surgical candidate. She had NGT placed with immediate 1200 cc of gastric contents. Still with significant abdominal pain, abdominal distention, and nausea. She received IV hydration and has seemingly developed pulmonary edema and hypoxemia requiring supplemental oxygen. She is currently hemodynamically stable. 103/57. 62. 17. 36.4. 95% on 6 L oxygen mask. General: Writhing in her hospital bed with her nephew at bedside. She appears to be very uncomfortable but is oriented. HEENT: Head is AT/NC. Buccal mucosa dry and tacky. Neck: No JVD. Negative hepatojugular reflex Cardiac: Distant but RRR Lungs: CTA without W/R/R Abdomen: Significant abdominal distention. Ostomy site to right mid abdomen. There is no stool or gas in her ostomy bag. She has hyperactive bowel sounds throughout and is exquisitely tender Extremities: + Vascular changes of the lower extremities without true pitting edema Neuro: A&O X4. Cranial nerves II through XII are grossly intact. No focal neuro deficits Skin: Vascular changes to the bilateral lower extremity Psych: Appears uncomfortable and in mild distress 08/01/21 20:56 08/01/21 20:56 High-sensitivity troponin 18.2 (reference range <14) CT of the abdomen and pelvis: S/p proctocolectomy with right lower quadrant ostomy. Parastomal hernia containing visceral fat and multiple dilated loops. High-grade small bowel obstruction related to the ostomy. Small bowel loops are diffusely dilated and fluid-filled. Stomach is distended with fluid. Distal esophagus is distended with fluid. EKG: Paced BNP: 391 INR: 1.9 Impression: 1. High-grade small bowel obstruction 2. Developing pulmonary edema/uncompensated CHF 3. MARTÍN with underlying CKD 4. Elevated troponin Chronic medical conditions: 1. CHF 2. CKD 3. PVD 4. AAAinoperable 5. History of breast CA 6. History of DVT/PE s/p IVC filter on chronic Coumadin 7. Depression 8. HLD 9. HTN * Patient with high-grade small bowel obstruction secondary to her ostomy * Has NGT LIS * Had IV hydration upfront and subsequently developed mild pulmonary edema and hypoxemia. She was given Bumex and is currently stable without fulminant CHF * Has been seen by general surgery who is recommending transfer to a tertiary center given her chronic comorbidities and poor surgical candidacy * ED has made arrangements for her to be transferred to [facility] but unfortunately, there is lack of bed availability. Told no bed availability until tonight. We were asked to admit this patient to our facility until the bed became available * Lengthy discussion with patient and her nephew (who was at bedside) regarding admission to our facility. Patient is a conditional code. She would want CPR and ventilatory support but short-term if quality of life was deemed poor, she would want transition to comfort/palliative care. She is receptive to surgical intervention if that is what is necessary to correct her small bowel obstruction. She was living a good life prior to this. She was independent and able to care for herself. Lives with her grandson. * I explained in great detail that a tertiary center may continue conservative management; however, in the event that she were to regress and symptoms were to worsen, we could not provide appropriate surgical intervention here as our surgical team has deemed her to need a tertiary center. I offered other tertiary centers such as [facility] and [facility]. Patient and her grandson are receptive to this and would like to seek other facilities. * Lengthy discussion with attending provider (Dr. Borges) and ED physician (Dr. Ordonez) who will make arrangements for other facilities.
--- NOTE | 2021-08-02 09:15 | CT Scan Report ---
ABDOMEN AND PELVIS CT WITH IV CONTRAST CT DOSE: 1127.66 mGy.cm HISTORY: distension, ab pain; nausea, ostomy TECHNIQUE: Multiaxial CT images of the abdomen and pelvis were performed following the use of intrave nous contrast. A dose lowering technique was utilized adhering to the principles of ALARA. COMPARISON STUDY: Abdomen and pelvis CT 07/17/2021. FINDINGS: Chronic interstitial thickening again noted within the lung bases. There are patchy bibasil ar densities which favor atelectasis. No pneumoperitoneum. No pneumatosis. Old, healed right pubic ri ng fractures. Old bilateral sacral insufficiency fractures again noted. There is an old L3 compressio n deformity unchanged. There are old, healed left-sided rib fractures. The heart remains enlarged. Pa cemaker wires are partially visualized. Dense mitral annulus calcifications are present. Elevated lef t hemidiaphragm. Mildly dilated fluid-filled esophagus. Fat and fluid containing midline epigastric h ernias are again noted. There is a fluid-filled left groin collection which measures 6.4 x 5.2 cm. Th is is similar to the prior study. Mild intrahepatic bile duct dilatation, unchanged. No hepatic one[place] s. The gallbladder is unremarkable. Fatty atrophy of the pancreas, unchanged. The spleen contains a f ew punctate calcified granulomas. Bilateral cortical renal scarring. No hydronephrosis. Stable indete rminate 1.1 cm left renal lesion. This demonstrates internal increased density and could represent a renal mass or hyperdense cyst. The 7.4 x 7.3 cm infrarenal abdominal aortic aneurysm. This has slight ly increased in size in the interval. No retroperitoneal hematoma identified. The main portal vein is patent. Mild narrowing of the superior mesenteric artery due to the atherosclerotic plaque. An IVC f ilter is present. The bladder is unremarkable. There is pelvic floor collapse. Prior hysterectomy. Po stoperative changes consistent with proctocolectomy and right lower quadrant ileostomy. A large sy tomal hernia is again noted. Multiple dilated loops of fluid-filled small bowel seen throughout the a bdomen to the level of the parastomal hernia. Probable transition point within the parastomal hernia consistent with a small bowel obstruction. This is new from the prior study. IMPRESSION: 1. High-grade small bowel obstruction with the transition point located at the parastomal hernia. Les gical consultation recommended. 2. Increase in size within the 7.4 x 7.3 cm infrarenal abdominal aortic aneurysm. 3. No change in the 6.4 x 5.2 cm left inguinal fluid collection. This could represent a postoperative seroma. 4. There is a 1.1 cm indeterminate left renal lesion. This could represent a hyperdense cyst or solid renal mass. 5. Additional findings as described above. ACT 112: Negative or not required by law. Electronically signed by: Justin Lepe M.D. 08/02/2021 9:14 AM
[2021-08-02] MEDS ORDERED: ONDANSETRON INJ 2 MG/ML 2 ML VIAL IV PRN (10:07)
[2021-08-02] MEDS: FAMOTIDINE 20 MG in SYRINGE 3 ML IV SCH (12:41)
[2021-08-02] MEDS: MoRPHine SULFATE 2 MG/ML CARP IV PRN ×2 (13:43→16:59)
--- NOTE | 2021-08-02 15:02 | Surgery Progress Note ---
Date of Service August 02, 2021 Assessment & Plan (1) Parastomal hernia: Plan: 89-year-old female with multiple medical problems and parastomal hernia with bowel obstruction. I was able to reduce a portion of the bowel from the hernia at the bedside. It is unclear whether this will help to resolve her obstruction. She is a very high risk patient given her multiple medical problems, as well as her prior surgical history. 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 We recommend transfer to a tertiary center for surgical intervention if necessary, and this is pending. (2) SBO (small bowel obstruction): (3) Aortic aneurysm: (4) CHF (congestive heart failure): (5) S/P PTCA (percutaneous transluminal coronary angioplasty): (6) Non-ST elevation UT (NSTEMI): (7) PE (pulmonary embolism): Admission and Anticipated Discharge Date Admission Date: August 02, 2021 Subjective 89-year-old female presented to the emergency department yesterday with small bowel obstruction secondary to parastomal hernia. Still with abdominal cramping, NG tube in place. Awaiting transfer to [place]. 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 Moderate to large sized parastomal hernia. I was able to reduce a portion of the bowel. Results & Data ([facility]) Vital Signs (Past 12 Hours) Vital Signs Temp Pulse Pulse Pulse Resp BP BP 08/02/21 11:36 36.1 C L 73 20 115/70 08/02/21 10:50 63 18 141/71 H 08/02/21 10:00 61 16 137/69 08/02/21 09:00 62 22 127/70 08/02/21 08:01 67 24 141/72 H 08/02/21 07:00 62 17 103/57 L 08/02/21 06:00 63 23 133/68 08/02/21 05:00 66 24 141/88 H 08/02/21 04:00 61 22 162/83 H 08/02/21 03:00 62 23 154/77 H Pulse Ox 08/02/21 11:36 94 08/02/21 10:50 99 08/02/21 10:00 95 08/02/21 09:00 96 08/02/21 08:01 96 08/02/21 07:00 95 08/02/21 06:00 94 08/02/21 05:00 94 08/02/21 04:00 94 08/02/21 03:00 93 Laboratory Results Laboratory Results - last 24 hr 08/01/21 08/01/21 08/01/21 20:56 20:56 20:57 WBC 10.87 H RBC 4.64 Hgb 14.6 Hct 43.5 MCV 93.8 MCH 31.5 MCHC 33.6 RDW Std Deviation 46.0 RDW Coeff of Boy 13.4 Plt Count 191 MPV 10.5 H Immature Gran % (Auto) 0.2 Neut % (Auto) 87.9 Lymph % (Auto) 6.7 Stafford % (Auto) 4.4 Eos % (Auto) 0.7 Baso % (Auto) 0.1 Neut # (Auto) 9.55 H Lymph # (Auto) 0.73 L Stafford # (Auto) 0.48 Eos # (Auto) 0.08 Baso # (Auto) 0.01 Immature Gran # (Auto) 0.02 PT 19.8 H INR 1.9 H APTT 31.2 H PTT Ratio 1.1 ABG pH ABG pCO2 ABG pO2 ABG HCO3 ABG O2 Saturation ABG Base Excess Manny Test Barometric Pressure Oxygen Given Sodium 134 L Potassium 4.4 Chloride 104 Carbon Dioxide 22 Anion Gap 8 BUN 36 H Creatinine 1.26 H Est Cr Clr Drug Dosing 33.3 Est GFR ( Amer) 43.7 Est GFR (Non-Af Amer) 37.7 BUN/Creatinine Ratio 28.6 H Glucose 132 H Lactate Calcium 10.0 Total Bilirubin 0.5 AST 20 ALT 13 Alkaline Phosphatase 142 H Troponin I High Sens B-Natriuretic Peptide Total Protein 7.9 Albumin 3.8 Globulin 4.1 H Albumin/Globulin Ratio 0.9 Lipase 15 Urine Color Urine Appearance Urine pH Ur Specific Swengel Urine Protein Urine Glucose (UA) Urine Ketones Urine Blood Urine Nitrite Urine Bilirubin Urine Urobilinogen Ur Leukocyte Esterase Urine WBC (Auto) Urine RBC (Auto) U Hyaline Cast (Auto) U Epithel Cells (Auto) Urine Bacteria (Auto) SARS-CoV-2, RNA, NAAT 08/01/21 08/01/21 08/01/21 22:48 23:07 23:25 WBC RBC Hgb Hct MCV MCH MCHC RDW Std Deviation RDW Coeff of Boy Plt Count MPV Immature Gran % (Auto) Neut % (Auto) Lymph % (Auto) Stafford % (Auto) Eos % (Auto) Baso % (Auto) Neut # (Auto) Lymph # (Auto) Stafford # (Auto) Eos # (Auto) Baso # (Auto) Immature Gran # (Auto) PT INR APTT PTT Ratio ABG pH ABG pCO2 ABG pO2 ABG HCO3 ABG O2 Saturation ABG Base Excess Manny Test Barometric Pressure Oxygen Given Sodium Potassium Chloride Carbon Dioxide Anion Gap BUN Creatinine Est Cr Clr Drug Dosing Est GFR ( Amer) Est GFR (Non-Af Amer) BUN/Creatinine Ratio Glucose Lactate Calcium Total Bilirubin AST ALT Alkaline Phosphatase Troponin I High Sens 18.2 H B-Natriuretic Peptide 391 H Total Protein Albumin Globulin Albumin/Globulin Ratio Lipase Urine Color Urine Appearance Urine pH Ur Specific Swengel Urine Protein Urine Glucose (UA) Urine Ketones Urine Blood Urine Nitrite Urine Bilirubin Urine Urobilinogen Ur Leukocyte Esterase Urine WBC (Auto) Urine RBC (Auto) U Hyaline Cast (Auto) U Epithel Cells (Auto) Urine Bacteria (Auto) SARS-CoV-2, RNA, NAAT NEGATIVE 08/02/21 08/02/21 08/02/21 01:25 03:03 05:22 WBC RBC Hgb Hct MCV MCH MCHC RDW Std Deviation RDW Coeff of Boy Plt Count MPV Immature Gran % (Auto) Neut % (Auto) Lymph % (Auto) Stafford % (Auto) Eos % (Auto) Baso % (Auto) Neut # (Auto) Lymph # (Auto) Stafford # (Auto) Eos # (Auto) Baso # (Auto) Immature Gran # (Auto) PT INR APTT PTT Ratio ABG pH 7.33 L ABG pCO2 40 ABG pO2 79 L ABG HCO3 21 ABG O2 Saturation 95.6 H ABG Base Excess -4.7 Manny Test POS Barometric Pressure 724.8 Oxygen Given 4 Sodium Potassium Chloride Carbon Dioxide Anion Gap BUN Creatinine Est Cr Clr Drug Dosing Est GFR ( Amer) Est GFR (Non-Af Amer) BUN/Creatinine Ratio Glucose Lactate 1.0 Calcium Total Bilirubin AST ALT Alkaline Phosphatase Troponin I High Sens B-Natriuretic Peptide Total Protein Albumin Globulin Albumin/Globulin Ratio Lipase Urine Color Dark Yellow Urine Appearance Cloudy A Urine pH 5.5 Ur Specific Swengel > 1.045 H Urine Protein 1+ H Urine Glucose (UA) Negative Urine Ketones Negative Urine Blood Negative Urine Nitrite Negative Urine Bilirubin Negative Urine Urobilinogen Negative Ur Leukocyte Esterase 2+ H Urine WBC (Auto) >30 H Urine RBC (Auto) 0-4 U Hyaline Cast (Auto) 1-5 U Epithel Cells (Auto) 10-20 H Urine Bacteria (Auto) Negative SARS-CoV-2, RNA, NAAT Diagnostic Findings ABDOMEN AND PELVIS CT WITH IV CONTRAST CT DOSE: 1127.66 mGy.cm HISTORY: distension, ab pain; nausea, ostomy TECHNIQUE: Multiaxial CT images of the abdomen and pelvis were performed following the use of intravenous contrast. A dose lowering technique was utilized adhering to the principles of ALARA. COMPARISON STUDY: Abdomen and pelvis CT 07/17/2021. FINDINGS: Chronic interstitial thickening again noted within the lung bases. There are patchy bibasilar densities which favor atelectasis. No pneumoperitoneum. No pneumatosis. Old, healed right pubic ring fractures. Old bilateral sacral insufficiency fractures again noted. There is an old L3 compression deformity unchanged. There are old, healed left-sided rib fractures. The heart remains enlarged. Pacemaker wires are partially visualized. Dense mitral annulus calcifications are present. Elevated left hemidiaphragm. Mildly dilated fluid-filled esophagus. Fat and fluid containing midline epigastric hernias are again noted. There is a fluid-filled left groin collection which measures 6.4 x 5.2 cm. This is similar to the prior study. Mild intrahepatic bile duct dilatation, unchanged. No hepatic masses. The gallbladder is unremarkable. Fatty atrophy of the pancreas, unchanged. The spleen contains a few punctate calcified granulomas. Bilateral cortical renal scarring. No hydronephrosis. Stable indeterminate 1.1 cm left renal lesion. This demonstrates internal increased density and could represent a renal mass or hyperdense cyst. The 7.4 x 7.3 cm infrarenal abdominal aortic aneurysm. This has slightly increased in size in the interval. No retroperitoneal hematoma identified. The main portal vein is patent. Mild narrowing of the superior mesenteric artery due to the atherosclerotic plaque. An IVC filter is present. The bladder is unremarkable. There is pelvic floor collapse. Prior hysterectomy. 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 A large parastomal hernia is again noted. Multiple dilated loops of fluid-filled small bowel seen throughout the abdomen to the level of the parastomal hernia. Probable transition point within the parastomal hernia consistent with a small bowel obstruction. This is new from the prior study. IMPRESSION: 1. High-grade small bowel obstruction with the transition point located at the parastomal hernia. Surgical consultation recommended. 2. Increase in size within the 7.4 x 7.3 cm infrarenal abdominal aortic aneurysm. 3. No change in the 6.4 x 5.2 cm left inguinal fluid collection. This could represent a postoperative seroma. 4. There is a 1.1 cm indeterminate left renal lesion. This could represent a hyperdense cyst or solid renal mass. 5. Additional findings as described above. PG Care Time/CCT Total # of Minutes Spent Total Time Spent with Patient: Total time spent is greater than 50% in coordination of care (as documented) at patient's floor/unit and/or counseling patient: Coding Level of Care Code 42343 Inpt Consult Level 2 Diagnoses Parastomal hernia K43.3 Obstruction and gangrene presence: with obstruction but without gangrene SBO (small bowel obstruction) K56.609 Aortic aneurysm I71.9 CHF (congestive heart failure) I50.9 Heart failure chronicity: unspecified Heart failure type: unspecified S/P PTCA (percutaneous transluminal coronary angioplasty) Z98.61 Non-ST elevation UT (NSTEMI) I21.4 PE (pulmonary embolism) I26.99 (1) Parastomal hernia Obstruction and gangrene presence: with obstruction but without gangrene Qualified Code(s): K43.3 - Parastomal hernia with obstruction, without gangrene (2) CHF (congestive heart failure) Heart failure chronicity: unspecified Heart failure type: unspecified Qualified Code(s): I50.9 - Heart failure, unspecified
--- NOTE | 2021-08-02 15:18 | Emergency Department Note ---
ED Visit Note I received this patient in signout at the change of shift from Dr. Priyanka Ordonez awaiting disposition after consultation with the hospitalist service. Patient was awaiting transfer to [facility] for admission however there is a further bed delay of 12 hours. There was some concern from the hospitalist that the patient may be better served at a different facility however after speaking with the patient's grandson [facility] is their strong desire. It is in closer proximity and more easily accessible for family. They understand the risk to the patient of staying at [facility] for the time being. The [facility] hospitalist service will evaluate the patient for admission awaiting bed assignment and transfer to [facility]. . : Parastomal hernia Qualifiers: Obstruction and gangrene presence: with obstruction but without gangrene Qualified Code(s): K43.3 - Parastomal hernia with obstruction, without gangrene
--- NOTE | 2021-08-02 15:42 | History & Physical Report ---
Date of Service August 02, 2021 Assessment & Plan (1) SBO (small bowel obstruction): Plan: 89-year-old white female with an underlying past medical history of colostomy (for diverticular disease) presented with a 2-day history of severe abdominal pain/bloating and associated nausea without stool or gas in her ostomy bag - Found to have radiographic evidence of a high-grade small bowel obstruction with a parastomal hernia multiple dilated loops of bowel seen within the stoma - seen by general surgery who has recommended transfer to a tertiary center. Attempted bedside reduction of parastomal hernia with limited success - NGT at low to intermittent suction given significant stomach and esophageal dilatation - Patient has been accepted to [facility] but no bed availability until later tonight. ED staff has reached out to multiple other tertiary centers and they were unsuccessful (either no beds or unwilling to take patient) - Patient and her grandson are very aware that the tertiary center may continue with conservative management but in the event that she would require surgery, this could not be performed here. They are aware of potential risk of stomach perforation and ultimately - Continue NGT at low to intermittent suction, n.p.o. status, IV pain medication and antiemetics - Transfer to [facility] when a bed becomes available -IV fluids were given upfront which caused increasing fluid overload warranting 1 dose of IV Bumex. Currently patient is euvolemic. I do feel that she needs some very gentle IV hydration to replace GI losses from NGT. Will initiate D5 LR but watch closely for signs and symptoms of volume overload (2) Parastomal hernia: Plan: -Attempted reduction by general surgery at bedside with limited success. See above (3) Hypoxemia: Plan: -Patient received IV hydration upfront. Does have an underlying history of CHF for which she takes Bumex -Initial EKG showed no evidence of pulmonary vascular congestion but following IV hydration, patient became hypoxic warranting additional imaging showing pulmonary edema -Patient was given IV Bumex and is actively diuresing -Last echocardiogram in the system is from 10/09 showing EF of 55 to 60% with mild hypokinesis of the mid to distal anterior wall. Mild to moderate concentric LV hypertrophy. Focal thickening at the basal septum. Severe mitral annular calcification. Moderate MR. -At this time, was holding off on IV fluids upfront but she has an NGT running at low to intermittent suction. Need to replace GI losses. Will gently run IV fluids watching closely for signs and symptoms of volume overload (4) CHF (congestive heart failure): Plan: -Again, mild pulmonary edema/hypoxemia with aggressive IV hydration given in the ED warranting 1 dose of IV Bumex -Currently via my assessment, she appears to be euvolemic. She is n.p.o. with NGT running at low to intermittent suction and GI losses need to be replaced -I have since ordered very gentle IV hydration but need to watch closely for signs and symptoms of volume overload -Patient does take isosorbide, metoprolol, Bumex, and Aldactone (all of which are currently on hold). Would be inclined to add topical Nitropaste and IV Lopressor scheduled if patient develops chest pain or heart rate/blood pressure become an issue but currently BP is 103/57 and her heart rate is 62 (5) Elevated troponin: Plan: -High sensitive troponin is elevated at 18.2 with a reference range of <14 -She denies chest pain and has no EKG changes -She does have underlying CAD -Suspect type II event in the setting of high-grade bowel obstruction. Will repeat EKG and follow troponin -Update echocardiogram -Currently her Plavix will be held given potential need for surgery -Typically takes Coumadin (for history of DVT/PE) which is being converted to a heparin drip upfront (6) Chronic kidney disease, stage II (mild): Plan: -Creatinine currently 1.26 (baseline 1.0-1.3) -Renally adjust medications when necessary -Follow labs closely (7) Anticoagulated on Coumadin: Plan: -On chronic Coumadin for history of DVT/PE. Has IVC filter in place -INR currently 1.9 -Holding Coumadin given potential need for surgical intervention -Start heparin drip to provide adequate anticoagulation therapy given history of DVT/PE Plan: Transfer to [facility] when a bed becomes available Patient is a DNR but agreeable to surgical intervention if necessary Case discussed in great detail with the ED physician and attending provider along with the patient and her grandson who was at bedside Admission and Anticipated Discharge Date Admission Date: August 02, 2021 History of Present Illness Chief Complaint: Abdominal pain Primary Care Provider: Julius Zamora MD Mrs. 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 Colostomy done at her [facility] 1981. Was in her usual state of health until yesterday at 2:00. Colostomy bag was stooling and functioning normally. After eating lunch, she developed abrupt and severe abdominal pain. Pain has been constant. She has had extensive nausea without emesis. Now without stool or gas in her ostomy bag. She has had bowel obstructions in the past and given that, was concerned which is what prompted her to seek medical attention. Work-up in the emergency department yielded a high-grade small bowel obstruction with significant stomach and esophageal dilatation. In addition, she has a parastomal hernia containing visceral fat and multiple dilated loops of bowel. The high-grade small bowel obstruction is related to the ostomy site. Patient has had colostomy due to diverticular disease with multiple abdominal surgeries regarding her colostomy. Initial surgery was in 1981 at [facility]. She was seen by general surgery who recommended transfer to a tertiary center given her chronic comorbidities and being a high risk surgical candidate. She had NGT placed with immediate 1200 cc of gastric contents. Still with significant abdominal pain, abdominal distention, and nausea. She received IV hydration and has seemingly developed pulmonary edema and hypoxemia requiring supplemental oxygen. She is currently hemodynamically stable. Spoke at length with the ER physician and the in-house attending provider. There were multiple attempts made to get her to a tertiary center. She has been accepted at [facility] but there is no bed availability until later this evening. Other tertiary centers would not take her given this complexity. Patient and her grandson are well aware that we have limited options and treatment and they are agreeable to transfer to [facility] when a bed becomes available. She will be hospitalized until that time. Has since been seen additionally by general surgery who was able to reduce some of the portion of bowel from the hernia at the bedside but this is unlikely going to help resolve her bowel obstruction. Allergies Allergy/AdvReac Type Severity Reaction Status Date / Time bee venom protein (honey bee) Allergy Severe ANAPHYLAXIS Verified 08/01/21 22:07 sodium lauryl sulfate Allergy Intermediate HIVES & Verified 08/01/21 22:07 WELTS Home Medications Medication Instructions Recorded Confirmed Type clopidogrel 75 mg tablet (Plavix) 75 mg PO QAM 01/16/18 08/01/21 History epinephrine 0.3 mg/0.3 mL 0.3 mg IM DIRECTED PRN 01/16/18 08/01/21 History injection, auto-injector (EpiPen 2-Percy) metoprolol succinate 25 mg 25 mg PO QAM 01/16/18 08/01/21 History tablet,extended release 24 hr (Toprol XL) multivitamin with minerals 1 tab PO QDD 01/16/18 08/01/21 History nitroglycerin 0.4 mg sublingual 0.4 mg SUBLINGUAL DIRECTED PRN 01/16/18 08/01/21 History tablet (Nitrostat) pantoprazole 40 mg tablet,delayed 40 mg PO QAM 01/16/18 08/01/21 History release (Protonix) ranolazine 500 mg tablet,extended 500 mg PO Q12H 01/16/18 08/01/21 History release,12 hr (Ranexa) magnesium oxide 400 mg (241.3 mg 400 mg PO HS #30 tab 07/31/18 08/01/21 Rx magnesium) tablet acetaminophen 500 mg tablet 500 mg PO Q6H PRN 07/01/19 08/01/21 History (Tylenol Extra Strength) ferrous sulfate 325 mg (65 mg 325 mg PO BID 10/19/19 08/01/21 History iron) tablet (FeroSul) baclofen 10 mg tablet 10 mg PO TID PRN #90 tab 10/22/19 08/01/21 Rx spironolactone 25 mg tablet 12.5 mg PO HS tab 04/11/20 08/01/21 History (Aldactone) amlodipine 5 mg tablet 5 mg PO DAILY 09/22/20 08/01/21 History potassium chloride 20 mEq 20 meq PO BID 09/22/20 08/01/21 History tablet,extended release(part/cryst) ipratropium 20 mcg-albuterol 100 1 puff INHALATION Q6H PRN #4 g 11/29/20 08/01/21 Rx mcg/actuation mist for inhalation (Combivent Respimat) oxcarbazepine 300 mg tablet 300 mg PO QID #360 tab 02/09/21 08/01/21 Rx (Trileptal) ergocalciferol (vitamin D2) 1,250 50,000 unit PO MONTHLY #3 cap 02/27/21 08/01/21 Rx mcg (50,000 unit) capsule (Drisdol) gabapentin 300 mg capsule 300 mg PO QID 90 Days #360 cap 03/13/21 08/01/21 Rx bumetanide 1 mg tablet 1 mg PO DAILY 07/17/21 08/01/21 History isosorbide mononitrate 60 mg 60 mg PO BID 07/17/21 08/01/21 History tablet,extended release 24 hr warfarin 6 mg tablet 12 mg PO 2XWK 08/01/21 08/01/21 History warfarin 6 mg tablet (Jantoven) 6 mg PO 5XWK 08/01/21 08/01/21 History Past Med/Surg History Medical History Aortic aneurysm Breast cancer Chest pain Chronic kidney disease, stage II (mild) Closed fracture of zygomatic arch Depression Dyslipidemia FH: total knee replacement H/O esophageal reflux History of DVT of lower extremity HTN (hypertension) Hypertension Hypertensive emergency Hyponatremia Hypoxia Ileostomy in place Pulmonary embolism Trigeminal neuralgia Vitamin D deficiency Wide-complex tachycardia Surgical History H/O cardiac catheterization H/O ileostomy H/O total colectomy H/O: hysterectomy S/P breast lumpectomy S/P shoulder surgery Family History Mother Cancer Acute myocardial infarction Uterine cancer Hypertension Father Cancer Prostate cancer Social History Smoking Status: Never smoker Second Hand Exposure: No; Hx Alcohol Use: No Hx Substance Use: No Preferred Language: Cook Islander Communication Ability: Effective Starter Mechanic Required: No Beliefs That Will Affect Care: None marital status: / Current Living Situation: Family Current Living Situation Comment: [place] Other Information That Helps Us Care for You: No Feels Safe at Home: Yes Safety Concerns: Feels Safe At This Time Assistive Devices: Walker Review of Systems Review of Systems: All systems reviewed and are unremarkable except as noted in HPI and below Denies fevers, chills, headache, nasal congestion, sore throat, cough, chest pain, shortness of breath, palpitations, orthopnea, PND, diarrhea, constipation, dysuria, hematuria, frequency, back pain, joint pain or swelling, easy bruising or bleeding, skin lesions or rashes. Physical Exam Physical Exam: General: Writhing in her hospital bed with her nephew at bedsid e. She appears to be very uncomfortable but is oriented. HEENT: Head is AT/NC. Buccal mucosa dry and tacky. Neck: No JVD. Negative hepatojugular reflex Cardiac: Distant but RRR Lungs: CTA without W/R/R Abdomen: Significant abdominal distention. Ostomy site to right mid abdomen. There is no stool or gas in her ostomy bag. She has hyperactive bowel sounds throughout and is exquisitely tender Extremities: + Vascular changes of the lower extremities without true pitting edema Neuro: A&O X4. Cranial nerves II through XII are grossly intact. No focal neuro deficits Skin: Vascular changes to the bilateral lower extremity Psych: Appears uncomfortable and in mild distress Results & Data Results & Data ([facility]) Vital Signs (Past 12 Hours) Vital Signs Temp Pulse Pulse Pulse Resp BP BP 08/02/21 11:36 36.1 C L 73 20 115/70 08/02/21 10:50 63 18 141/71 H 08/02/21 10:00 61 16 137/69 08/02/21 09:00 62 22 127/70 08/02/21 08:01 67 24 141/72 H 08/02/21 07:00 62 17 103/57 L 08/02/21 06:00 63 23 133/68 08/02/21 05:00 66 24 141/88 H 08/02/21 04:00 61 22 162/83 H Pulse Ox 08/02/21 11:36 94 08/02/21 10:50 99 08/02/21 10:00 95 08/02/21 09:00 96 08/02/21 08:01 96 08/02/21 07:00 95 08/02/21 06:00 94 08/02/21 05:00 94 08/02/21 04:00 94 Laboratory Results 08/01/21 20:56 08/01/21 20:56 High-sensitivity troponin 18.2 (reference range <14) EKG: Paced BNP: 391 INR: 1.[address] of the abdomen and pelvis: S/p proctocolectomy with right lower quadrant osto my. Parastomal hernia containing visceral fat and multiple dilated loops. High-grade small bowel obstruction related to the ostomy. Small bowel loops are diffusely dilated and fluid-filled. Stomach is distended with fluid. Distal esophagus is distended with fluid. Code Status & VTE Plan VTE Prophylaxis Plan VTE Prophylaxis will be ordered: Yes Supervising Physician Co-Signing Physician Notes Patient seen and examined, chart reviewed, case discussed with Francisca Riddle PA-C and I agree with the assessment and plan as above except as otherwise noted. One xam Extremely uncomfortable on exam, nontoxic. Oriented name/place/month/year. CTAB A&P. Symmetrical chest rise. No increase in work of breathing. HR Regular, intermittently tachycardic abdomen diffusely distended, tender, with ostomy and protruding hernia tender to palpation. Labs and images reviewed. In summary Paige is a 89-year-old female with a history of CHF, CKD, PE, SBO, ileostomy following colonoscopy for severe diverticular disease who was sent to the emergency department was found to have a high-grade bowel obstruction. Was seen by general surgery who recommended transfer to tertiary care. Patient is high risk with multiple comorbidities inoperable aortic aneurysm, heart failure, and history of blood clots on Coumadin addition to IVC filter placement. Initially reported the patient was accepted at [facility] and did not wish to pursue other tertiary care centers, was seen by hospitalist SANDRA and family reported that they were open to any tertiary care center that would take her in a reasonable timeframe. After additional efforts reaching out to other medical centers [facility] accepted and was only reasonable center in area for patient to transfer. She was accepted to medical service for observation pending transfer. Management as above, subsequently discharged to [facility] afternoon of 08/02. Patient did have hernia at her ostomy site which was unable to be reduced by general surgery. PG Care Time/CCT Total # of Minutes Spent Total Time Spent with Patient: Total time spent is greater than 50% in coordination of care (as documented) at patient's floor/unit and/or counseling patient: Coding Level of Care Code 38966 Initial Inpt Care Lvl 3 Diagnoses SBO (small bowel obstruction) K56.609 Hypoxemia R09.02 Parastomal hernia K43.3 Obstruction and gangrene presence: with obstruction but without gangrene CHF (congestive heart failure) I50.9 Heart failure chronicity: unspecified Heart failure type: unspecified Elevated troponin R77.8 Chronic kidney disease, stage II (mild) N18.2 Anticoagulated on Coumadin Z51.81; Z79.01 (1) Parastomal hernia Obstruction and gangrene presence: with obstruction but without gangrene Qualified Code(s): K43.3 - Parastomal hernia with obstruction, without gangrene (2) CHF (congestive heart failure) Heart failure chronicity: unspecified Heart failure type: unspecified Qualified Code(s): I50.9 - Heart failure, unspecified
[2021-08-02] MEDS ORDERED: D5W AND LACTATED RINGERS 1,000 ML IV SCH (15:45)
[2021-08-02] MEDS ORDERED: Heparin IV Adult Wt-Based Standard *NO* Bolus Protocol IV SCH (16:04)
--- NOTE | 2021-08-02 16:17 | Discharge Summary ---
Date of Service August 02, 2021 Admission HPI Per Admitting Provider Mrs. 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 Colostomy done at her [facility] 1981. Was in her usual state of health until yesterday at 2:00. Colostomy bag was stooling and functioning normally. After eating lunch, she developed abrupt and severe abdominal pain. Pain has been constant. She has had extensive nausea without emesis. Now without stool or gas in her ostomy bag. She has had bowel obstructions in the past and given that, was concerned which is what prompted her to seek medical attention. Work-up in the emergency department yielded a high-grade small bowel obstruction with significant stomach and esophageal dilatation. In addition, she has a parastomal hernia containing visceral fat and multiple dilated loops of bowel. The high-grade small bowel obstruction is related to the ostomy site. Patient has had colostomy due to diverticular disease with multiple abdominal surgeries regarding her colostomy. Initial surgery was in 1981 at [facility]. She was seen by general surgery who recommended transfer to a tertiary center given her chronic comorbidities and being a high risk surgical candidate. She had NGT placed with immediate 1200 cc of gastric contents. Still with significant abdominal pain, abdominal distention, and nausea. She received IV hydration and has seemingly developed pulmonary edema and hypoxemia requiring supplemental oxygen. She is currently hemodynamically stable. Spoke at length with the ER physician and the in-house attending provider. There were multiple attempts made to get her to a tertiary center. She has been accepted at [facility] but there is no bed availability until later this evening. Other tertiary centers would not take her given this complexity. Patient and her grandson are well aware that we have limited options and treatment and they are agreeable to transfer to [facility] when a bed becomes available. She will be hospitalized until that time. Has since been seen additionally by general surgery who was able to reduce some of the portion of bowel from the hernia at the bedside but this is unlikely going to help resolve her bowel obstruction. Principal Diagnosis 1. High Grade Bowel Obstruction Discharge Exam General: Writhing in her hospital bed with her nephew at bedside. She appears to be very uncomfortable but is oriented. HEENT: Head is AT/NC. Buccal mucosa dry and tacky. Neck: No JVD. Negative hepatojugular reflex Cardiac: Distant but RRR Lungs: CTA without W/R/R Abdomen: Significant abdominal distention. Ostomy site to right mid abdomen. There is no stool or gas in her ostomy bag. She has hyperactive bowel sounds throughout and is exquisitely tender Extremities: + Vascular changes of the lower extremities without true pitting edema Neuro: A&O X4. Cranial nerves II through XII are grossly intact. No focal neuro deficits Skin: Vascular changes to the bilateral lower extremity Psych: Appears uncomfortable and in mild distress Discharge Data Allergies Allergy/AdvReac Type Severity Reaction Status Date / Time bee venom protein (honey bee) Allergy Severe ANAPHYLAXIS Verified 08/01/21 22:07 sodium lauryl sulfate Allergy Intermediate HIVES & Verified 08/01/21 22:07 WELTS Consultations 08/01/21 22:29 ED Decision to Admit Stat 08/01/21 22:30 Consult General Surgery Stat 08/02/21 08:45 ED Decision to Admit Stat Ordered Studies 08/01/21 19:52 CT abd pelvis IV con only Urgent IMPRESSION: 1. High-grade small bowel obstruction with the transition point located at the parastomal hernia. Surgical consultation recommended. 2. Increase in size within the 7.4 x 7.3 cm infrarenal abdominal aortic aneurysm. 3. No change in the 6.4 x 5.2 cm left inguinal fluid collection. This could represent a postoperative seroma. 4. There is a 1.1 cm indeterminate left renal lesion. This could represent a hyperdense cyst or solid renal mass. 5. Additional findings as described above. CXR: IMPRESSION: 1. Cardiomegaly with mild central pulmonary vascular congestion. 2. Elevated left hemidiaphragm with left basilar linear densities. This favors subsegmental atelectasis. A pneumonia could also have a similar appearance. Hospital Course (1) SBO (small bowel obstruction): 89-year-old white female with an underlying past medical history of colostomy (for diverticular disease) presented with a 2-day history of severe abdominal pain/bloating and associated nausea without stool or gas in her ostomy bag - Found to have radiographic evidence of a high-grade small bowel obstruction with a parastomal hernia multiple dilated loops of bowel seen within the stoma - seen by general surgery who has recommended transfer to a tertiary center. Attempted bedside reduction of parastomal hernia with limited success - NGT at low to intermittent suction given significant stomach and esophageal dilatation - Patient has been accepted to [facility] but no bed availability until later tonight. ED staff has reached out to multiple other tertiary centers and they were unsuccessful (either no beds or unwilling to take patient) - Patient and her grandson are very aware that the tertiary center may continue with conservative management but in the event that she would require surgery, this could not be performed here. They are aware of potential risk of stomach perforation and ultimately - Continue NGT at low to intermittent suction, n.p.o. status, IV pain medication and antiemetics - Transfer to [facility] when a bed becomes available -IV fluids were given upfront which caused increasing fluid overload warranting 1 dose of IV Bumex. Currently patient is euvolemic. I do feel that she needs some very gentle IV hydration to replace GI losses from NGT. Will initiate D5 LR but watch closely for signs and symptoms of volume overload (2) Parastomal hernia: -Attempted reduction by general surgery at bedside with limited success. See above (3) Hypoxemia: -Patient received IV hydration upfront. Does have an underlying history of CHF for which she takes Bumex -Initial EKG showed no evidence of pulmonary vascular congestion but following IV hydration, patient became hypoxic warranting additional imaging showing pulmonary edema -Patient was given IV Bumex and is actively diuresing -Last echocardiogram in the system is from 10/09 showing EF of 55 to 60% with mild hypokinesis of the mid to distal anterior wall. Mild to moderate concentri c LV hypertrophy. Focal thickening at the basal septum. Severe mitral annular calcification. Moderate MR. -At this time, was holding off on IV fluids upfront but she has an NGT running at low to intermittent suction. Need to replace GI losses. Will gently run IV fluids watching closely for signs and symptoms of volume overload -When evaluating the chest x-ray myself, she does appear to have bibasilar opacities likely consistent with atelectasis given her abdominal discomfort and inability to take a deep breath. We will add incentive spirometry. Follow closely. (4) CHF (congestive heart failure): -Again, mild pulmonary edema/hypoxemia with aggressive IV hydration given in the ED warranting 1 dose of IV Bumex -Currently via my assessment, she appears to be euvolemic. She is n.p.o. with NGT running at low to intermittent suction and GI losses need to be replaced -I have since ordered very gentle IV hydration but need to watch closely for signs and symptoms of volume overload -Patient does take isosorbide, metoprolol, Bumex, and Aldactone (all of which are currently on hold). Would be inclined to add topical Nitropaste and IV Lopr essor scheduled if patient develops chest pain or heart rate/blood pressure become an issue but currently BP is 103/57 and her heart rate is 62 (5) Elevated troponin: -High sensitive troponin is elevated at 18.2 with a reference range of <14 -She denies chest pain and has no EKG changes -She does have underlying CAD -Suspect type II event in the setting of high-grade bowel obstruction. 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 Has IVC filter in place -INR currently 1.9 -Holding Coumadin given potential need for surgical intervention -Start heparin drip to provide adequate anticoagulation therapy given history of DVT/PE Transfer to [facility] when a bed becomes available Patient is a DNR but agreeable to surgical intervention if necessary Case discussed in great detail with the ED physician and attending provider along with the patient and her grandson who was at bedside ED staff has made the arrangements for transfer and transfer packet completed by them. Total Time Total Time Spent Total Time Spent (In Minutes): 90 minutes including time spent with patient, her grandson, discussion with ED physician, discussion with attending provider, coordination of care and preparation of documentation Discharge Plan Discharge Items Patient Disposition: Transfer [facility] Reason For Visit: HIGH GRADE SBO Discharge Diagnosis: 1. High Grade Bowel Obstruction Activity: As commented below Activity Comment: NGT currently at [facility] Non-emergency contact: Hospitalist Call non-emergency contact if: you have any medication questions Follow-up/Referrals: Julius Zamora MD [Primary Care Provider] - Diet: Other - See Diet Comment Diet Comment: LUZ MARIA Pina Attending Provider Instructions: Patient hospitalized to our facility with high-grade bowel obstruction while awaiting bed at a tertiary center (accepted at [facility]) Pending Studies at Discharge: No Stand-Alone Forms: My [facility] Skilled Items Patient informed of condition?: Yes DNR: Yes Discharge Level of Care: Other Communicable Disease: Yes Discharge Prognosis: Other Lines: Peripheral IV Urinary Catheter: No Medications and DC Order Prescriptions: Discontinued clopidogrel [Plavix] 75 mg Tablet 75 mg PO QAM RF: 0 pantoprazole [Protonix] 40 mg Tablet,Delayed Release (Dr/Ec) 40 mg PO QAM RF: 0 nitroglycerin [Nitrostat] 0.4 mg Tablet, Sublingual 0.4 mg Sublingual DIRECTED PRN (Reason: Chest Pain) RF: 0 metoprolol succinate [Toprol XL] 25 mg Tablet Extended Release 24 Hr 25 mg PO QAM RF: 0 epinephrine [EpiPen 2-Percy] 0.3 mg/0.3 mL Auto-Injector 0.3 mg IM DIRECTED PRN (Reason: Allergic Reaction) RF: 0 multivitamin with minerals Tablet 1 tab PO QDD RF: 0 ranolazine [Ranexa] 500 mg Tablet Extended Release 12 Hr 500 mg PO Q12H RF: 0 ferrous sulfate [FeroSul] 325 mg (65 mg iron) tablet 325 mg PO BID RF: 0 spironolactone [Aldactone] 25 mg tablet 12.5 mg PO HS RF: 0 oxcarbazepine [Trileptal] 300 mg tablet 300 mg PO QID Qty: 360 RF: 1 ergocalciferol (vitamin D2) [Drisdol] 1,250 mcg (50,000 unit) capsule 50,000 unit PO MONTHLY Qty: 3 RF: 3 gabapentin 300 mg capsule 300 mg PO QID 90 Days Qty: 360 RF: 1 baclofen 10 mg tablet 10 mg PO TID PRN (Reason: Muscle Spasm/face pain) Qty: 90 RF: 1 magnesium oxide 400 mg (241.3 mg magnesium) Tablet 400 mg PO HS Qty: 30 RF: 0 acetaminophen [Tylenol Extra Strength] 500 mg Tablet 500 mg PO Q6H PRN (Reason: Pain) RF: 0 Combivent Respimat 20-100 mcg/actuation mist 1 puff inhalation Q6H PRN (Reason: cough, wheeze, shortness of breath) Qty: 4 RF: 0 warfarin 6 mg tablet 12 mg PO 2XWK RF: 0 warfarin [Jantoven] 6 mg tablet 6 mg PO 5XWK RF: 0 amlodipine 5 mg tablet 5 mg PO DAILY RF: 0 potassium chloride 20 mEq tablet,ER particles/crystals 20 meq PO BID RF: 0 bumetanide 1 mg tablet 1 mg PO DAILY RF: 0 isosorbide mononitrate 60 mg tablet extended release 24 hr 60 mg PO BID RF: 0 Discharge Orders: Discharge Order (Routine); Ordered 08/02/21 Ordered By: Toyin Riddle Admission Data Admit Date/Time: 08/02/21 10:07 Attending Provider: Patricia Latif Admit Provider: David Borges Primary Care Provider: Julius Zamora Other Providers: Aidan Abdi ; Jordan Rosales ; David Borges Other Interventions: Discharge Summary Assessment (RN) Last Done: 08/03/21 19:00 Supervising Physician Co-Signing Physician Notes D/C SUMMARY COMPLETED IN ANTICIPATION OF EXPECTED TRANSFER TO TERTIARY CARE. THIS WAS DELAYED BY BED AVAILABILITY. ADDITIONAL CARE AND DISCHARGE NOTE COMPLETED BY NEXT DAY PROVIDER. UNABLE TO DELETE NOTE, SIGNED TO REMOVE FROM DOCUMENTATION QUEUE. VOICEMAIL LEFT WITH HEALTH INFORMATION MANAGEMENT, NOTE IS PENDING REMOVAL. Coding Level of Care Code D/C DAY MANAGEMENT >30 MINS Diagnoses SBO (small bowel obstruction) K56.609 Parastomal hernia K43.3 Obstruction and gangrene presence: with obstruction but without gangrene Hypoxemia R09.02 CHF (congestive heart failure) I50.9 Heart failure chronicity: unspecified Heart failure type: unspecified Elevated troponin R77.8 Chronic kidney disease, stage II (mild) N18.2 Anticoagulated on Coumadin Z51.81; Z79.01
[2021-08-02] MEDS ORDERED: HEPARIN SODIUM/DEXTROSE 25,000 UNITS/500 ML BAG IV SCH (16:30)
[2021-08-02 16:58] LABS: INR 2.7 (0.9-1.1); Partial Thromboplastin Ratio 1.3; Partial Thromboplastin Time 35.6 Seconds (21.0-31.0); Prothrombin Time 27.1 Seconds (9.0-12.0)
[2021-08-02] MEDS: D5W AND LACTATED RINGERS 1,000 ML IV SCH (18:08)
[2021-08-02 23:08] LABS: INR 2.7 (0.9-1.1); Prothrombin Time 27.5 Seconds (9.0-12.0)
[2021-08-02 23:09] LABS: Partial Thromboplastin Ratio 1.4; Partial Thromboplastin Time 38.2 Seconds (21.0-31.0)
--- NOTE | 2021-08-03 06:15 | Electrocardiogram Report ---
Test Reason : Blood Pressure : / mmHG Vent. Rate : 069 BPM Atrial Rate : 069 BPM P-R Int : 204 ms QRS Dur : 218 ms QT Int : 512 ms P-R-T Axes : 083 -85 068 degrees QTc Int : 548 ms AV dual-paced rhythm Abnormal ECG When compared with ECG of 17-JUL-2021 12:03, Vent. rate has increased BY 6 BPM Confirmed by Juan Manuel Uribe ([id number]) on 08/03/2021 6:15:39 AM Referred By: REFERRED SELF Confirmed By:Juan Manuel Uribe
[2021-08-03 07:34] LABS: BUN Creatinine Ratio 34.8 (10-20); Calcium 9.6 mg/dl (8.5-10.1); Est GFR (African American) 38.2 ml/min; Est GFR (Non-African American) 32.9 ml/min; Magnesium 2.1 mg/dl (1.7-2.4); Potassium 4.9 mmol/L (3.5-5.1)
[2021-08-03 07:39] LABS: Hemoglobin 14.8 g/dL (12.0-16.0); Mean Corpuscular Hemoglobin 31.3 pg (25-34); Mean Corpuscular Hgb Conc 32.9 g/dL (32-36); Mean Corpuscular Volume 95.1 fL (80-100); Mean Platelet Volume 10.7 fL (7.4-10.4); Platelet Count 225 K/uL (130-400); RDW Coefficient of Variation 13.7 % (11.5-14.5); RDW Standard Deviation 48.4 fL (36.4-46.3); Red Blood Count 4.73 M/uL (4.2-5.4); White Blood Count 11.28 K/uL (4.8-10.8)
[2021-08-03 07:50] LABS: INR 2.7 (0.9-1.1); Prothrombin Time 26.9 Seconds (9.0-12.0)
[2021-08-03 08:12] LABS: Basophils # (auto) 0.01 K/uL (0-0.2); Basophils % (auto) 0.1 %; Immature Granulocytes # (auto) 0.02 K/uL (0.00-0.02); Immature Granulocytes % (auto) 0.2 %; Lymphocytes # (auto) 1.12 K/uL (1.2-3.4); Lymphocytes % (auto) 9.9 %; Monocytes # (auto) 0.88 K/uL (0.11-0.59); Monocytes % (auto) 7.8 %; Neutrophils # (auto) 9.25 K/uL (1.4-6.5)
[2021-08-03] MEDS ORDERED: ENOXAPARIN INJ 30 MG/0.3 ML SYR SQ SCH (09:00)
[2021-08-03] MEDS: D5W AND LACTATED RINGERS 1,000 ML IV SCH (09:22)
--- NOTE | 2021-08-03 09:58 | XRay Report ---
KUB HISTORY: Small bowel obstruction. Follow-up. COMPARISON: Abdomen and pelvis CT 08/01/2021. FINDINGS: The nasogastric tube terminates in the expected location of the stomach within the left alexis e the abdomen. An IVC filter is noted. Dilated gas-filled loops of small bowel are again seen through out the abdomen consistent with the patient's known history of a small bowel obstruction. These measu re up to 4.8 cm in diameter. The heart remains enlarged. Pacemaker wires are noted. Left basilar dens ities and mild congestive change. No renal calculi. No ureteral calculi. No pneumoperitoneum or pneu matosis. IMPRESSION: 1. Multiple dilated gas-filled loops of small bowel seen throughout the abdomen consistent with the p atient's known high-grade small bowel obstruction. This is similar to the prior study. 2. Nasogastric tube terminates in the left mid abdomen and is likely within the stomach. ACT 112: Negative or not required by law. Electronically signed by: Justin Lepe M.D. 08/03/2021 9:57 AM
--- NOTE | 2021-08-03 12:19 | Surgery Progress Note ---
Date of Service August 03, 2021 Assessment & Plan (1) Parastomal hernia: Plan: 89-year-old female with multiple medical problems and parastomal hernia with bowel obstruction. I was able to reduce a portion of the bowel from the hernia at the bedside again today. It is unclear whether this will help to resolve her obstruction. She is a very high risk patient given her multiple medical problems, as well as her prior surgical history. 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 We recommend transfer to a tertiary center for surgical intervention if necessary, and this is pending. (2) SBO (small bowel obstruction): (3) Aortic aneurysm: (4) CHF (congestive heart failure): (5) S/P PTCA (percutaneous transluminal coronary angioplasty): (6) Non-ST elevation GA (NSTEMI): (7) PE (pulmonary embolism): Admission and Anticipated Discharge Date Admission Date: August 02, 2021 Subjective 89-year-old female presented to the emergency department yesterday with small bowel obstruction secondary to parastomal hernia. Still with abdominal cramping, NG tube in place. Awaiting transfer to [place]. Physical Exam Constitutional: WD/WN, vitals as above + acute distress (Moderate) Gastrointestinal (Abdomen): Inspection/Auscultation: + visible herniation and + abdominal surgical scar Percussion/Palpation: + hernia (Partially reducible parastomal hernia) Results & Data ([facility]) Vital Signs (Past 12 Hours) Vital Signs Temp Pulse Pulse Resp BP Pulse Ox 08/03/21 07:24 62 08/03/21 06:40 36.6 C 62 20 159/81 H 96 08/03/21 03:44 36.3 C L 62 22 152/76 H 93 PG Care Time/CCT Total # of Minutes Spent Total Time Spent with Patient: Total time spent is greater than 50% in coordination of care (as documented) at patient's floor/unit and/or counseling patient: Coding Level of Care Code 15317 Inpt Consult Level 2 Diagnoses Parastomal hernia K43.3 Obstruction and gangrene presence: with obstruction but without gangrene SBO (small bowel obstruction) K56.609 Aortic aneurysm I71.9 CHF (congestive heart failure) I50.9 Heart failure chronicity: unspecified Heart failure type: unspecified S/P PTCA (percutaneous transluminal coronary angioplasty) Z98.61 Non-ST elevation GA (NSTEMI) I21.4 PE (pulmonary embolism) I26.99 (1) Parastomal hernia Obstruction and gangrene presence: with obstruction but without gangrene Qualified Code(s): K43.3 - Parastomal hernia with obstruction, without gangrene (2) CHF (congestive heart failure) Heart failure chronicity: unspecified Heart failure type: unspecified Qualified Code(s): I50.9 - Heart failure, unspecified
[2021-08-03] MEDS: FAMOTIDINE 20 MG in SYRINGE 3 ML IV SCH ×2 (12:45)
--- NOTE | 2021-08-03 16:00 | Hospitalist Progress Note ---
Date of Service August 03, 2021 Assessment & Plan (1) SBO (small bowel obstruction): Plan: 89-year-old white female with an underlying past medical history of colostomy (for diverticular disease) presented with a 2-day history of severe abdominal pain/bloating and associated nausea without stool or gas in her ostomy bag - Found to have radiographic evidence of a high-grade small bowel obstruction with a parastomal hernia multiple dilated loops of bowel seen within the stoma - seen by general surgery who has recommended transfer to a tertiary center. Attempted bedside reduction of parastomal hernia with limited success, repeat attempt today with some success - NGT at low to intermittent suction given significant stomach and esophageal dilatation - Patient initially accepted to [facility] but the surgeon today wanted to speak with our surgeon here - Patient and her grandson are very aware that the tertiary center may continue with conservative management but in the event that she would require surgery, this could not be performed here. They are aware of potential risk of stomach perforation and ultimately - Continue NGT at low to intermittent suction, n.p.o. status, IV pain medication and antiemetics - Transfer to [facility] when a bed becomes available (2) Parastomal hernia: Plan: -Attempted reduction by general surgery at bedside with limited success, but repeat attempt today was somewhat successful (3) Hypoxemia: Plan: -could be due to pulmonary vascular congestion -Currently on 4 L of oxygen through face mask -continue diuresis with lasix -Wean as tolerated (4) CHF (congestive heart failure): Plan: -Again, mild pulmonary edema/hypoxemia with aggressive IV hydration given in the ED warranting 1 dose of IV Bumex -Currently via my assessment, she appears to be euvolemic. She is n.p.o. with NGT running at low to intermittent suction and GI losses need to be replaced -I have since ordered very gentle IV hydration but need to watch closely for signs and symptoms of volume overload -Patient does take isosorbide, metoprolol, Bumex, and Aldactone (all of which are currently on hold). (5) Elevated troponin: Plan: -High sensitive troponin is elevated at 18.2 with a reference range of <14 -She denies chest pain and has no EKG changes -She does have underlying CAD -Suspect type II event in the setting of high-grade bowel obstruction. 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 Has IVC filter in place -Holding Coumadin given potential need for surgical intervention -Start heparin drip to provide adequate anticoagulation therapy given history of DVT/PE Plan: Transfer to [facility] when a bed becomes available Patient is a DNR but agreeable to surgical intervention if necessary Case discussed in great detail with the ED physician and attending provider along with the patient and her grandson who was at bedside Admission and Anticipated Discharge Date Admission Date: August 02, 2021 Subjective patient seen and examined, NG tube in situ, still with some abdominal pains Review of Systems Review of Systems: All systems reviewed are negative, apart from the ones contained in the history. Physical Exam Physical Exam: The patient is awake, alert and oriented 3, well developed and well nourished, NG tube in situ HEENT--PERRL, EOMI, mucous membranes and oropharynx mildly dry Neck--supple. No JVD. No bruits. Thyroid normal, trachea midline, no adenopathy. Heart--normal S1 and S2. No murmurs, rubs or gallops. Lungs--clear bilaterally, no respiratory distress, no accessory muscle use. Abdomen--abdominal tenderness Extremities--no cyanosis or clubbing. No edema. Dermatologic--normal skin turgor, normal color, no abnormal lymph nodes, no rash. Neurologic--cranial nerves II through XII grossly intact. Rheumatologic--normal range of motion. Psychiatric--normal affect. Results & Data Results & Data ([facility]) Vital Signs (Past 12 Hours) Vital Signs Temp Pulse Pulse Resp BP Pulse Ox 08/03/21 15:00 97.7 F 65 20 176/81 H 97 08/03/21 14:18 68 08/03/21 11:00 98.2 F 67 22 166/80 H 97 08/03/21 07:24 62 08/03/21 06:40 97.9 F 62 20 159/81 H 96 Laboratory Results Laboratory Results - last 24 hr 08/02/21 08/02/21 08/02/21 16:11 16:31 22:39 WBC RBC Hgb Hct MCV MCH MCHC RDW Std Deviation RDW Coeff of Boy Plt Count MPV Immature Gran % (Auto) Neut % (Auto) Lymph % (Auto) [place] % (Auto) Eos % (Auto) Baso % (Auto) Neut # (Auto) Lymph # (Auto) [place] # (Auto) Eos # (Auto) Baso # (Auto) Immature Gran # (Auto) PT 27.1 H INR 2.7 H APTT 35.6 H 38.2 H PTT Ratio 1.3 1.4 Sodium Potassium Chloride Carbon Dioxide Anion Gap BUN Creatinine Est Cr Clr Drug Dosing Est GFR ( Amer) Est GFR (Non-Af Amer) BUN/Creatinine Ratio Glucose Calcium Magnesium Troponin I High Sens 49.6 H D 08/02/21 08/02/21 08/03/21 22:39 22:39 06:27 WBC 11.28 H RBC 4.73 Hgb 14.8 Hct 45.0 MCV 95.1 MCH 31.3 MCHC 32.9 RDW Std Deviation 48.4 H RDW Coeff of Boy 13.7 Plt Count 225 MPV 10.7 H Immature Gran % (Auto) 0.2 Neut % (Auto) 82.0 Lymph % (Auto) 9.9 [place] % (Auto) 7.8 Eos % (Auto) 0.0 Baso % (Auto) 0.1 Neut # (Auto) 9.25 H Lymph # (Auto) 1.12 L [place] # (Auto) 0.88 H Eos # (Auto) 0.00 Baso # (Auto) 0.01 Immature Gran # (Auto) 0.02 PT 27.5 H INR 2.7 H APTT PTT Ratio Sodium Potassium Chloride Carbon Dioxide Anion Gap BUN Creatinine Est Cr Clr Drug Dosing Est GFR ( Amer) Est GFR (Non-Af Amer) BUN/Creatinine Ratio Glucose Calcium Magnesium Troponin I High Sens 50.4 H* 08/03/21 08/03/21 08/03/21 06:27 06:27 06:27 WBC RBC Hgb Hct MCV MCH MCHC RDW Std Deviation RDW Coeff of Boy Plt Count MPV Immature Gran % (Auto) Neut % (Auto) Lymph % (Auto) [place] % (Auto) Eos % (Auto) Baso % (Auto) Neut # (Auto) Lymph # (Auto) [place] # (Auto) Eos # (Auto) Baso # (Auto) Immature Gran # (Auto) PT 26.9 H INR 2.7 H APTT PTT Ratio Sodium 138 Potassium 4.9 Chloride 106 Carbon Dioxide 23 Anion Gap 9 BUN 49 H Creatinine 1.41 H Est Cr Clr Drug Dosing 26.0 Est GFR ( Amer) 38.2 Est GFR (Non-Af Amer) 32.9 BUN/Creatinine Ratio 34.8 H Glucose 165 H Calcium 9.6 Magnesium 2.1 Troponin I High Sens 61.6 H* D PG Care Time/CCT Total # of Minutes Spent Total Time Spent with Patient: Total time spent is greater than 50% in coordination of care (as documented) at patient's floor/unit and/or counseling patient: Coding Level of Care Code 53999 Subseq Hosp Care Lvl 2 Diagnoses SBO (small bowel obstruction) K56.609 Parastomal hernia K43.3 Obstruction and gangrene presence: with obstruction but without gangrene Hypoxemia R09.02 CHF (congestive heart failure) I50.9 Heart failure chronicity: unspecified Heart failure type: unspecified Elevated troponin R77.8 Chronic kidney disease, stage II (mild) N18.2 Anticoagulated on Coumadin Z51.81; Z79.01 Time Spent (min) 35 (1) Parastomal hernia Obstruction and gangrene presence: with obstruction but without gangrene Qualified Code(s): K43.3 - Parastomal hernia with obstruction, without gangrene (2) CHF (congestive heart failure) Heart failure chronicity: unspecified Heart failure type: unspecified Qualified Code(s): I50.9 - Heart failure, unspecified
--- NOTE | 2021-08-03 16:38 | XCELERA ---
[id number]
--- NOTE | 2021-08-03 17:39 | Discharge Summary ---
Date of Service August 03, 2021 Admission HPI Per Admitting Provider Mrs. 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 Colostomy done at her [facility] 1981. Was in her usual state of health until yesterday at 2:00. Colostomy bag was stooling and functioning normally. After eating lunch, she developed abrupt and severe abdominal pain. Pain has been constant. She has had extensive nausea without emesis. Now without stool or gas in her ostomy bag. She has had bowel obstructions in the past and given that, was concerned which is what prompted her to seek medical attention. Work-up in the emergency department yielded a high-grade small bowel obstruction with significant stomach and esophageal dilatation. In addition, she has a parastomal hernia containing visceral fat and multiple dilated loops of bowel. The high-grade small bowel obstruction is related to the ostomy site. Patient has had colostomy due to diverticular disease with multiple abdominal surgeries regarding her colostomy. Initial surgery was in 1981 at [facility]. She was seen by general surgery who recommended transfer to a tertiary center given her chronic comorbidities and being a high risk surgical candidate. She had NGT placed with immediate 1200 cc of gastric contents. Still with significant abdominal pain, abdominal distention, and nausea. She received IV hydration and has seemingly developed pulmonary edema and hypoxemia requiring supplemental oxygen. She is currently hemodynamically stable. Spoke at length with the ER physician and the in-house attending provider. There were multiple attempts made to get her to a tertiary center. She has been accepted at [facility] but there is no bed availability until later this evening. Other tertiary centers would not take her given this complexity. Patient and her grandson are well aware that we have limited options and treatment and they are agreeable to transfer to [facility] when a bed becomes available. She will be hospitalized until that time. Has since been seen additionally by general surgery who was able to reduce some of the portion of bowel from the hernia at the bedside but this is unlikely going to help resolve her bowel obstruction. Principal Diagnosis SBO Discharge Exam The patient is awake, alert and oriented 3, well developed and well nourished, NG tube in situ HEENT--PERRL, EOMI, mucous membranes and oropharynx mildly dry Neck--supple. No JVD. No bruits. Thyroid normal, trachea midline, no adenopathy. Heart--normal S1 and S2. No murmurs, rubs or gallops. Lungs--clear bilaterally, no respiratory distress, no accessory muscle use. Abdomen--abdominal tenderness Extremities--no cyanosis or clubbing. No edema. Dermatologic--normal skin turgor, normal color, no abnormal lymph nodes, no rash. Neurologic--cranial nerves II through XII grossly intact. Rheumatologic--normal range of motion. Psychiatric--normal affect. Discharge Data Allergies Allergy/AdvReac Type Severity Reaction Status Date / Time bee venom protein (honey bee) Allergy Severe ANAPHYLAXIS Verified 08/01/21 22:07 sodium lauryl sulfate Allergy Intermediate HIVES & Verified 08/01/21 22:07 WELTS Consultations 08/01/21 22:29 ED Decision to Admit Stat 08/01/21 22:30 Consult General Surgery Stat 08/02/21 08:45 ED Decision to Admit Stat Ordered Studies 08/01/21 19:52 CT abd pelvis IV con only Urgent Hospital Course (1) SBO (small bowel obstruction): 89-year-old white female with an underlying past medical history of colostomy (for diverticular disease) presented with a 2-day history of severe abdominal pain/bloating and associated nausea without stool or gas in her ostomy bag - Found to have radiographic evidence of a high-grade small bowel obstruction with a parastomal hernia multiple dilated loops of bowel seen within the stoma - seen by general surgery who has recommended transfer to a tertiary center. Attempted bedside reduction of parastomal hernia with limited success - NGT at low to intermittent suction given significant stomach and esophageal dilatation - Patient has been accepted to [facility] but no bed availability until later tonight. ED staff has [facility] were [facility] (either no beds or unwilling to take patient) - Patient and her grandson are very aware that the tertiary center may continue with conservative management but in the event that she would require surgery, this could not be performed here. They are aware of potential risk of stomach perforation and ultimately - Continue NGT at low to intermittent suction, n.p.o. status, IV pain medication and antiemetics - Transfer to [facility] when a bed becomes available -IV fluids were given upfront which caused increasing fluid overload warranting 1 dose of IV Bumex. Currently patient is euvolemic. I do feel that she needs some very gentle IV hydration to replace GI losses from NGT. Will initiate D5 LR but watch closely for signs and symptoms of volume overload (2) Parastomal hernia: -Attempted reduction by general surgery at bedside with limited success. See above (3) Hypoxemia: -Patient received IV hydration upfront. Does have an underlying history of CHF for which she takes Bumex -Initial EKG showed no evidence of pulmonary vascular congestion but following IV hydration, patient became hypoxic warranting additional imaging showing pulmonary edema -Patient was given IV Bumex and is actively diuresing -Last echocardiogram in the system is from 10/09 showing EF of 55 to 60% with mild hypokinesis of the mid to distal anterior wall. Mild to moderate concentric LV hypertrophy. Focal thickening at the basal septum. Severe mitral annular calcification. Moderate MR. -At this time, was holding off on IV fluids upfront but she has an NGT running at low to intermittent suction. Need to replace GI losses. Will gently run IV fluids watching closely for signs and symptoms of volume overload -When evaluating the chest x-ray myself, she does appear to have bibasilar opacities likely consistent with atelectasis given her abdominal discomfort and inability to take a deep breath. We will add incentive spirometry. Follow closely. (4) CHF (congestive heart failure): -Again, mild pulmonary edema/hypoxemia with aggressive IV hydration given in the ED warranting 1 dose of IV Bumex -Currently via my assessment, she appears to be euvolemic. She is n.p.o. with NGT running at low to intermittent suction and GI losses need to be replaced -I have since ordered very gentle IV hydration but need to watch closely for signs and symptoms of volume overload -Patient does take isosorbide, metoprolol, Bumex, and Aldactone (all of which are currently on hold). Would be inclined to add topical Nitropaste and IV Lopressor scheduled if patient develops chest pain or heart rate/blood pressure become an issue but currently BP is 103/57 and her heart rate is 62 (5) Elevated troponin: -High sensitive troponin is elevated at 18.2 with a reference range of <14 -She denies chest pain and has no EKG changes -She does have underlying CAD -Suspect type II event in the setting of high-grade bowel obstruction. 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 Has IVC filter in place -INR currently 1.9 -Holding Coumadin given potential need for surgical intervention -Start heparin drip to provide adequate anticoagulation therapy given history of DVT/PE Transfer to [facility] when a bed becomes available Patient is a DNR but agreeable to surgical intervention if necessary Case discussed in great detail with the ED physician and attending provider along with the patient and her grandson who was at bedside ED staff has made the arrangements for transfer and transfer packet completed by them. Total Time Total Time Spent Total Time Spent (In Minutes): 35 Discharge Plan Discharge Items [facility] Reason For Visit: HIGH GRADE SBO Discharge Diagnosis: 1. High Grade Bowel Obstruction Activity: As commented below Activity Comment: NGT currently at [facility] Non-emergency contact: Hospitalist Call non-emergency contact if: you have any medication questions Follow-up/Referrals: Julius Zamora MD [Primary Care Provider] - Diet: Other - See Diet Comment Diet Comment: NPO Addtl Attending Provider Instructions: Patient hospitalized to our facility with high-grade bowel obstruction while awaiting bed at a tertiary center (accepted at [facility]) Pending Studies at Discharge: No Stand-Alone Forms: My [facility] Skilled Items Patient informed of condition?: Yes DNR: Yes Discharge Level of Care: Other Communicable Disease: Yes Discharge Prognosis: Other Lines: Peripheral IV Urinary Catheter: No Medications and DC Order Prescriptions: Discontinued clopidogrel [Plavix] 75 mg Tablet 75 mg PO QAM RF: 0 pantoprazole [Protonix] 40 mg Tablet,Delayed Release (Dr/Ec) 40 mg PO QAM RF: 0 nitroglycerin [Nitrostat] 0.4 mg Tablet, Sublingual 0.4 mg Sublingual DIRECTED PRN (Reason: Chest Pain) RF: 0 metoprolol succinate [Toprol XL] 25 mg Tablet Extended Release 24 Hr 25 mg PO QAM RF: 0 epinephrine [EpiPen 2-Percy] 0.3 mg/0.3 mL Auto-Injector 0.3 mg IM DIRECTED PRN (Reason: Allergic Reaction) RF: 0 multivitamin with minerals Tablet 1 tab PO QDD RF: 0 ranolazine [Ranexa] 500 mg Tablet Extended Release 12 Hr 500 mg PO Q12H RF: 0 ferrous sulfate [FeroSul] 325 mg (65 mg iron) tablet 325 mg PO BID RF: 0 spironolactone [Aldactone] 25 mg tablet 12.5 mg PO HS RF: 0 oxcarbazepine [Trileptal] 300 mg tablet 300 mg PO QID Qty: 360 RF: 1 ergocalciferol (vitamin D2) [Drisdol] 1,250 mcg (50,000 unit) capsule 50,000 unit PO MONTHLY Qty: 3 RF: 3 gabapentin 300 mg capsule 300 mg PO QID 90 Days Qty: 360 RF: 1 baclofen 10 mg tablet 10 mg PO TID PRN (Reason: Muscle Spasm/face pain) Qty: 90 RF: 1 magnesium oxide 400 mg (241.3 mg magnesium) Tablet 400 mg PO HS Qty: 30 RF: 0 acetaminophen [Tylenol Extra Strength] 500 mg Tablet 500 mg PO Q6H PRN (Reason: Pain) RF: 0 Combivent Respimat 20-100 mcg/actuation mist 1 puff inhalation Q6H PRN (Reason: cough, wheeze, shortness of breath) Qty: 4 RF: 0 warfarin 6 mg tablet 12 mg PO 2XWK RF: 0 warfarin [Jantoven] 6 mg tablet 6 mg PO 5XWK RF: 0 amlodipine 5 mg tablet 5 mg PO DAILY RF: 0 potassium chloride 20 mEq tablet,ER particles/crystals 20 meq PO BID RF: 0 bumetanide 1 mg tablet 1 mg PO DAILY RF: 0 isosorbide mononitrate 60 mg tablet extended release 24 hr 60 mg PO BID RF: 0 Discharge Orders: Discharge Order (Routine); Ordered 08/02/21 Ordered By: Toyin Riddle Admission Data Admit Date/Time: 08/02/21 10:07 Attending Provider: Patricia Latif Admit Provider: David Borges Primary Care Provider: Julius Zamora Other Providers: Aidan Abdi ; Jordan Rosales ; David Borges Other Interventions: Discharge Summary Assessment (RN) Last Done: 08/02/21 15:34 Coding Level of Care Code D/C DAY MANAGEMENT >30 MINS Diagnoses SBO (small bowel obstruction) K56.609 Parastomal hernia K43.3 Obstruction and gangrene presence: with obstruction but without gangrene Hypoxemia R09.02 CHF (congestive heart failure) I50.9 Heart failure chronicity: unspecified Heart failure type: unspecified Elevated troponin R77.8 Chronic kidney disease, stage II (mild) N18.2 Anticoagulated on Coumadin Z51.81; Z79.01 Time Spent (min) 35
--- NOTE | 2021-08-03 21:43 | Electrocardiogram Report ---
Test Reason : Blood Pressure : / mmHG Vent. Rate : 062 BPM Atrial Rate : 062 BPM P-R Int : 268 ms QRS Dur : 208 ms QT Int : 526 ms P-R-T Axes : 066 263 060 degrees QTc Int : 533 ms AV dual-paced rhythm with prolonged AV conduction Abnormal ECG When compared with ECG of 01-AUG-2021 22:50, Vent. rate has decreased BY 7 BPM Confirmed by Juan Manuel Uribe ([id number]) on 08/03/2021 9:43:23 PM Referred By: REFERRED SELF Confirmed By:Juan Manuel Uribe
== END 2021-08-03 19:15 | DRG 394 ==
LOC: ED 19:09 → 2S 08-02 10:07 → SUATTDRO 08-02 10:07 → 2S 08-02 10:50